=== PATIENT | female | born 1945 | race Caucasian/White ===

== ENCOUNTER 2017-10-15 08:24 | Observation (INO) | payer MEDICARE, MEDICAID, SELFPAY ==
[2017-10-15] VITALS (10 sets, daily range): BP systolic 142–190; BP diastolic 82–113; PULSE 55–73; RESP 13–16; TEMP 36.6–36.8; O2SAT 94–97; BMI 37.3; BMI 37.7; BMI 38.0
--- NOTE | 2017-10-15 08:37 | RAD_ITS ---
STUDY: X-RAY CHEST REASON FOR EXAM: Female, 72 years old. Syncope. TECHNIQUE: Single AP portable view of the chest. COMPARISON: Comparison is made with prior study dated July 19, 2017. FINDINGS: The lungs are clear and expanded. There is no demonstrated pleural abnormality. Sternal cerclage wires and vascular clips are present from a prior sternotomy and coronary artery bypass graft procedure (CABG). Normal mediastinum and ale. Normal visualized pulmonary arteries. There is atherosclerotic tortuosity of the aortic arch and descending thoracic aorta. Normal visualized thoracic spine. Normal visualized ribs, clavicles, and shoulders. Moderate hiatal hernia. RAD/Chest 1 View (Portable) IMPRESSION: No acute abnormality is seen. Hiatal hernia. Electronically Signed: Geoffrey Lezama MD at 9:13 EST Tel [phone], Service support ,
--- NOTE | 2017-10-15 08:37 | CT_ITS ---
STUDY: CT BRAIN WITHOUT CONTRAST REASON FOR EXAM: Female, 72 years old. Syncopal episode. And injury. Seizures. RADIATION DOSAGE (If Supplied By Facility): CTDIvol = ( 44.99 ) mGy, DLP = ( 745.49 ) mGycm TECHNIQUE: Transaxial CT imaging of the brain was performed without administration of intravenous contrast material. Individualized dose optimization techniques were used for this CT. COMPARISON: None. FINDINGS: Normal soft tissue structures. Normal calvarium. There is mild cerebral atrophy with widening of the extra-axial spaces and ventricular dilatation. There are areas of decreased attenuation within the white matter tracts of the supratentorial brain, consistent with microvascular disease changes. Normal basal ganglia and thalami. Normal brainstem. There is mild cerebellar atrophy. There is no intracranial hemorrhage. There are no findings of an acute ischemic infarction. Normal visualized paranasal sinuses. CT/Brain/Head without Contrast IMPRESSION: Chronic involutional changes of the brain. Electronically Signed: Geoffrey Lezama MD at 9:48 EST Tel [phone], Service support ,
--- NOTE | 2017-10-15 08:37 | EKG12_ITS ---
Test Reason : Blood Pressure : / mmHG Vent. Rate : 067 BPM Atrial Rate : 067 BPM P-R Int : 172 ms QRS Dur : 092 ms QT Int : 428 ms P-R-T Axes : 005 006 084 degrees QTc Int : 452 ms Normal sinus rhythm Nonspecific T wave abnormality Abnormal ECG Confirmed by MAXIM TIRADO, SHARRON ([id number]), editor continuity and script IWONA BOLANOS ([id number]) on 10/16/2017 2:28:37 PM Referred By: RUDDY Confirmed By:SHARRON PAN MD
[2017-10-15] MEDS: 0.9% Normal Saline 1,000 ML 150 ML IV (08:57)
--- NOTE | 2017-10-15 09:03 | ED.DCSUM_ITS ---
- ER Visit Summary Date of Service: 10/15/17 Chief Complaint: [Syncope] History of Present Illness: The patient is a 72 F [presents with a syncopal episode that occurred last evening around 6:30 PM. Patient was standing in the kitchen and apparently when she began feeling dizzy and passed out hitting the floor with her head. Per her patient was unconscious for maybe a little bit over a minute. Patient has been complaining of dizziness over the last year specifically with standing and states that she cannot stand for very long. Patient currently does describe a mild headache. Patient states she has had a dry cough for a few years. Patient denies any urinary symptoms. Patient has not had a fever or cold symptoms. She denies any chest pain currently. also gives history of patient having pseudoseizures and apparently patient had 2 of these episodes yesterday. Patient is not on any seizure medications. During her pseudoseizure episodes patient's whole body shakes and she does not respond to them and afterwards is somewhat confused. Patient did not exhibit any seizure-like activity during her syncopal episode per .] Patient does have a history of coronary artery disease with prior two-vessel CABG approximately 10 years ago. Physical Examination: [HEENT-PERRLA, EOMI. Cranial nerves II through XII grossly intact. TMs clear. Mucous membranes moist. No adenopathy. No bite wounds noted to the mouth or tongue. Cardiovascular-regular rate and rhythm without murmur or ectopy Lungs-clear to auscultation, chest wall stable without crepitus or subcu emphysema Abdomen-normoactive bowel sounds, soft, nontender, no rebound or rigidity, no peritoneal signs. Neuro qgre-kieoaf-cmpa and heel rivas testing within normal limits, negative Romberg, negative pronator drift, fundi benign Extremities-intact ?4, normal range of motion, normal pulses, atraumatic] Test Results: [EKG obtained showed a sinus rhythm with a ventricular rate of 67 bpm with some nonspecific ST changes noted. No old EKGs available for comparison.] CT scan of the brain showed chronic changes and nothing acute. CBC with differential and white blood cell count of 4.6, hemoglobin 14.6, hematocrit 43.5, platelets 186. Chemistries unremarkable. TSH was elevated 9.24. Urinalysis was normal. Troponin was less than 0.02. Chest x-ray showed nothing acute. Orthostatic vital signs were positive. Emergency Department Course and Treatment: [Patient was treated with normal saline] Treatment Plan: [Plan will be to admit patient for further evaluation of her dizziness and syncope.] Disposition: [Admit] Impression: [Syncope Dizziness-etiology uncertain Hypothyroidism-noncompliant with meds Orthostatic hypotension Abnormal EKG-no old EKGs available for comparison] This note was generated with [employer] dictation software. It may contain incorrect words, spelling, and punctuation that were not noted in review of the chart prior to signing ED Disposition - Plan for ED Patient: Chief Complaint: Syncope Referrals: Care Physician,No Primary [Primary Care Provider] -
[2017-10-15 09:04] LABS: Absolute Lymphocyte Count 1.31 X10^3/ul (0.83-4.51); Absolute Neutrophil Count 2.6 X10^3/uL (2.0-7.7); Basophil# 0.06 X10^3/uL; Basophil% 1.3 % (0-1); Eosinophil# 0.15 X10^3/uL; Eosinophils% 3.3 % (0-5); Hematocrit 43.5 % (37-47); Hemoglobin 14.6 g/dl (12.0-15.0); Lymphocyte # 1.31 X10^3/ul (4.0); Lymphocyte % 28.4 % (19-41); Mean Corp Hgb Conc 33.6 g/gl (32-36); Mean Corpuscular Hgb 29.1 pg (27.0-32.0); Mean Corpuscular Volume 86.8 fL (81-99); Mean Platelet Vol. 10.2 fl (6.2-12.0); Monocyte# 0.51 X10^3/uL; Monocyte% 11.1 % (0-10); Neutrophil # 2.58 X10^3/uL (2.7-7.7); Neutrophil % 55.9 % (47-70); Platelet Count 186 K/mm3 (150-450); RBC Distribution Width CV 13.3 % (11.6-14.6); RBC Distribution Width SD 42.2 fl (35.1-43.9); Red Blood Count 5.01 M/mm3 (4.2-5.4); White Blood Count 4.6 K/mm3 (4.4-11.0)
[2017-10-15 09:05] LABS: POSITIVE COUNT NO; POSITIVE DIFFERENTIAL NO; POSITIVE MORPHOLOGY NO
[2017-10-15 09:14] LABS: Bacteria 0 SEEN /hpf (None Seen); Mucous, Urine 0 SEEN /hpf (<or=2+); Red Blood Cells-Urine 0 SEEN /hpf (0-5); White Blood Cells 0 SEEN /hpf (0-5)
[2017-10-15 09:15] LABS: Color, Urine Yellow (Yellow); Glucose, Dipstick Normal (Normal); Ketone-Dipstick Negative (Negative); Leukocyte Esterase-Dipstick Negative /ul (Negative); Nitrite-Dipstick Negative (Negative); Occult Blood-Urine Negative /ul (Negative); Protein-Dipstick Negative (Negative); Specific Gravity, Urine 1.005 (1.002-1.030); Urine Bilirubin Dipstick Negative (Negative); Urine Clarity Clear (Clear); Urine Urobilinogen Normal (Normal); Urine pH 6.5 (5.0 - 8.0)
[2017-10-15 09:24] LABS: Anion Gap 5 (5-15); BUN 15 mg/dL (7-18); BUN/Creat Ratio 12.8 RATIO (10-20); Chloride 108 mmol/L (98-107); Creatinine, Serum 1.17 mg/dL (0.55-1.02); EST Glomerular Filtration Rate 49 mL/min (>60); Est Glom Filt Rate - Afr Amer 59 mL/min (>60); Estimated Creatinine Clearance 41.88 ml/min; Glucose 98 mg/dL (74-106); Potassium 4.2 mmol/L (3.5-5.1); Sodium Level 141 mmol/L (136-145); Thyroid Stim Hormone (TSH) 9.74 uIU/mL (0.358-3.74)
[2017-10-15 09:34] LABS: Squamous Epithelial Cells - UA 0-5 SEEN /hpf (5-10)
--- NOTE | 2017-10-15 11:40 | MRI_ITS ---
STUDY: MRI BRAIN WITHOUT CONTRAST REASON FOR EXAM: Female, 72 years old. Syncope episodes, pt hit posterior head TECHNIQUE: Standardized multiplanar fat and water weighted pulse sequences were obtained. COMPARISON: January 09, 2008 FINDINGS: Normal size of the ventricles and extra-axial spaces for the patient's age. There are multiple white matter hyperintensities, distributed throughout the deep white matter tracts of the cerebral hemispheres, consistent with moderate chronic white matter ischemic changes. Normal bilateral basal ganglia. Normal thalami. There is no extra-axial fluid accumulation. Normal flow voids within the major intracranial circulation suggesting patency by spin echo criteria. Normal sella turcica, pituitary gland, infundibular stalk, optic chiasm and hypothalamus. Normal tectal plate and pineal gland. Normal midbrain, sujit and medulla. Normal cerebellum. Normal basal cisterns. Normal bilateral temporal bones. Normal bilateral internal auditory canals. No demonstrated orbital abnormality, within the constraints of a routine brain study. Normal visualized paranasal sinuses. Normal calvarium and skull base. Normal visualized soft tissue structures. Normal visualized upper cervical spine. MRI/Brain without Contrast IMPRESSION: No acute intracranial abnormality. Moderate chronic microvascular ischemic changes. Electronically Signed: Daniela Blackmon MD at 13:23 EST Tel , Service support ,
--- NOTE | 2017-10-15 11:43 | CDU_ITS ---
Reason For Study: syncope Rt. Velocities/BP Lt. Velocities/BP Prox CCA 56.9/18.8 cm/sec. Prox CCA 52.3/14.1 cm/sec. Mid CCA 57.5/21.1 cm/sec. Mid CCA 56.2/16.5 cm/sec. Dist CCA 48.7/17.0 cm/sec. Dist CCA 58.1/19.3 cm/sec. Prox ICA 108/42.2 cm/sec. Prox ICA 123/43.2 cm/sec. Mid ICA 87.4/31.7 cm/sec. Mid ICA 112/37.7 cm/sec. Dist ICA 118/40.1 cm/sec. Dist ICA 123/42.4 cm/sec. Rt. ICA/CCA = 2.1. Lt. ICA/CCA = 2.2. Prox ECA 69.8/8.21 cm/sec. Prox ECA 55.8/6.29 cm/sec. Rt. Vert. 33.4/10.2 cm/sec. Lt. Vert. 27.9/9.04 cm/sec. Right Extracranial There is intimal thickening but no significant atherosclerotic plaque noted in the right common carotid artery. There is heterogeneous, irregular atherosclerotic plaque noted in the right internal carotid artery. There is intimal thickening but no significant atherosclerotic plaque noted in the right external carotid artery. Antegrade flow is noted in the right vertebral artery. Left Extracranial There is intimal thickening but no significant atherosclerotic plaque noted in the left common carotid artery. There is heterogeneous, irregular atherosclerotic plaque noted in the left internal carotid artery. There is intimal thickening but no significant atherosclerotic plaque noted in the left external carotid artery. Antegrade flow is noted in the left vertebral artery. Procedure Carotid Duplex 75091. The exam was diagnostic. Exam performed portable in patient room. 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 Normal flow right external carotid Calcific plague at the proximal left internal carotid with <50% stenosis. Normal flow left external carotid Patent and antegrade vertebrals bilaterally. Ordering Physician: Jon Newman Performed By: Rafael Hahn RVT
--- NOTE | 2017-10-15 11:45 | PCM.HP.STD ---
Problem List (1) Anxiety Status: Chronic (2) Obesity (BMI 30-39.9) Status: Chronic (3) HTN (hypertension) Status: Chronic Qualifiers: (4) HLD (hyperlipidemia) Status: Chronic Qualifiers: (5) CAD (coronary artery disease) Status: Chronic Qualifiers: (6) Seizure disorder Status: Chronic (7) S/P CABG x 2 Status: Chronic History of Present Illness Date of Admission: 10/15/17 Chief Complaint: Syncope, seizure. The patient is a 72 year old F with past medical history as mentioned above presented to the emergency room because of syncope and seizure. According to the patient's , she had a syncopal episode yesterday when was standing at the kitchen and all of a sudden, she passed out. The patient herself mentioned that she has been having chronic dizziness mainly upon standing and this morning, she felt dizzy and lightheaded before she passed out. She did not recall any more details about this event. She denied any other prodromal symptoms preceding the syncopal event such as chest pain, shortness of breath, palpitation. But she reported dizziness. Also, her mentioned that she had 2 episodes of seizure before that syncopal event. He described those seizures as jerking movements of both upper extremities, trunk and head but not in the lower extremities. There was no reported tongue biting, stool or urine incontinence. 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 They moved recently to [facility] from [place]. She had a history of CAD status post CABG ?2. She had a history of hypothyroidism and she has been on levothyroxine but her TSH is elevated and she is not compliant with her home medications. She does have a history of hyperlipidemia and she has been on statins. In the emergency room, she was afebrile, heart rate stable, blood pressure was elevated and pulse ox was normal on room air. Her routine blood work was unremarkable except for slightly elevated creatinine at 1.17. Her troponin was negative. TSH was 9.74. EKG revealed normal sinus rhythm, normal NC interval, normal QRS, T-wave inversion in lateral chest leads and those changes are chronic compared to previous EKG. Urinalysis showed no evidence of acute cystitis. CT scan brain without contrast showed no acute infarction or hemorrhage. Chest x-ray showed no acute findings. She is being admitted for syncopal episode as well as seizure for evaluation. Past Medical History Past Medical History (Chronic Problems): Chronic Problems Anxiety (Chronic) Obesity (BMI 30-39.9) (Chronic) HTN (hypertension) (Chronic) HLD (hyperlipidemia) (Chronic) CAD (coronary artery disease) (Chronic) Seizure disorder (Chronic) S/P CABG x 2 (Chronic) Allergies NOVACAINE Adverse Reaction (Uncoded 07/19/17 16:44) ELEVATED BLOOD PRESSURE Home Medications: Ambulatory Orders Medication Instructions Recorded Aspirin [Aspirin, Baby] 81 mg PO QHS 07/19/17 Atorvastatin Calcium [Lipitor] 20 mg PO QHS 07/19/17 Levothyroxine [Synthroid] 112 mcg PO DAILY 07/19/17 Lisinopril [Zestril] 10 mg PO QHS 07/19/17 Surgical History: coronary bypass surgery, - - CABG x 2. 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 Denies: Chest Pain, Chest Pressure, Chest Tightness, Edema, Heaviness, Orthopnea, Paroxysmal Noc. Dyspnea Respiratory: Denies: Cough, Pleuritic Pain, Shortness of Breath, Sputum production, Wheezing Gastrointestinal: Denies: Abdominal Pain, Constipation, Diarrhea, Nausea, Vomiting Genitourinary: Denies: Dysuria, Frequency, Hematuria Musculoskeletal: Denies: Arm Pain, Back Pain, Foot Pain Skin: Denies: Dryness, Rash Neurological: Reports: Seizures. Denies: Balance problems, Double vision, Change in Speech, Slurred speech, Confusion, Focal weakness, Headaches, Incoordination, Numbness, Tingling Psychiatric: Reports: Anxiety. Denies: Depression Endocrine: Denies: Change in Body Habitus, Polydipsia VTE Information - Inpt Only VTE Present on Admission: No VTE Mechan Device Prophylaxis: None VTE Pharm Prophylaxis ordered?: Yes - Physical Exam General: Alert, Oriented x3, Cooperative, No apparent distress HEENT: Atraumatic, PERRLA, EOMI Oral: Moist Mucosa, No Gingival or Mucosal Lesions/ Ulcerations Neck: Supple, No JVD, Negative Carotid Bruits, Trachea Midline, Thyroid Normal Size and Texture Lungs: Clear to auscultation, No rhonchi, No wheeze, No rales, Diminished Cardiovascular: Regular rate, Regular Rhythm, Normal S1, Normal S2, No murmurs, PMI Normal Abdomen: Bowel Sounds Present, Soft, Non Tender, Non-Distended, No Hepato-splenomegaly Extremities: No clubbing, No cyanosis, No edema Skin: No rashes, No breakdown Lymphatic: No Cervical, Supraclavicular, or Inguinal Adenopathy Neurological: Cranial nerves II-XII grossly intact, Motor Exam 5/5 strength throughout Psych/Mental Status: Normal Affect, Appropriate, Alert and oriented to time, place, person, mood and affect Vital Signs Temp Pulse Resp BP Pulse Ox 97.8 F 56 L 16 149/94 H 94 10/15/17 11:02 10/15/17 11:23 10/15/17 11:02 10/15/17 11:02 10/15/17 11:02 Oxygen Delivery Method Room Air Weight: 228 lb 6.382 oz Body Mass Index (BMI) 38.0 Laboratory Tests 10/15/17 10/15/17 10/15/17 Range/Units 09:08 08:54 08:54 WBC 4.6 (4.4-11.0) K/mm3 RBC 5.01 (4.2-5.4) M/mm3 Hgb 14.6 (12.0-15.0) g/dl Hct 43.5 (37-47) % MCV 86.8 (81-99) fL MCH 29.1 (27.0-32.0) pg MCHC 33.6 (32-36) g/gl RDW 13.3 (11.6-14.6) % RDW Differential 42.2 (35.1-43.9) fl Plt Count 186 (150-450) K/mm3 MPV 10.2 (6.2-12.0) fl Immature Gran % (Auto) 0.000 (0.0-0.9) % Neut % (Auto) 55.9 (47-70) % Lymph % (Auto) 28.4 (19-41) % [place] % (Auto) 11.1 H (0-10) % Eos % (Auto) 3.3 (0-5) % Baso % (Auto) 1.3 H (0-1) % Absolute Neuts (auto) 2.6 (2.0-7.7) X10^3/uL Absolute Lymphs (auto) 1.31 (0.83-4.51) X10^3/ul Total Counted Not Reportable Sodium 141 (136-145) mmol/L Potassium 4.2 (3.5-5.1) mmol/L Chloride 108 H (98-107) mmol/L Carbon Dioxide 28.0 (21.0-32.0) mmol/L Anion Gap 5 (5-15) BUN 15 (7-18) mg/dL Creatinine 1.17 H (0.55-1.02) mg/dL Estim Creat Clear Calc 41.88 ml/min Est GFR (MDRD) Af Amer 59 L (>60) mL/min Est GFR (MDRD) Non-Af 49 L (>60) mL/min BUN/Creatinine Ratio 12.8 (10-20) RATIO Glucose 98 (74-106) mg/dL Calcium 9.0 (8.5-10.1) mg/dL Troponin I < 0.02 (<0.06) ng/mL TSH 9.74 H (0.358-3.74) uIU/mL Urine Color Yellow (Yellow) Urine Clarity Clear (Clear) Urine pH 6.5 (5.0 - 8.0) Ur Specific [place] 1.005 (1.002-1.030) Urine Protein Negative (Negative) mg/dl Urine Glucose (UA) Normal (Normal) mg/dl Urine Ketones Negative (Negative) mg/dl Urine Occult Blood Negative (Negative) /ul Urine Nitrite Negative (Negative) Urine Bilirubin Negative (Negative) mg/dL Urine Urobilinogen Normal (Normal) mg/dl Ur Leukocyte Esterase Negative (Negative) /ul Urine RBC 0 SEEN (0-5) /hpf Urine WBC 0 SEEN (0-5) /hpf Ur Squamous Epith Cells 0-5 SEEN (5-10) /hpf Urine Bacteria 0 SEEN (None Seen) /hpf Urine Mucus 0 SEEN (<or=2+) /hpf Clinical Impression(s) from Imaging Studies Brain CT 10/15/17 08:37 IMPRESSION: Chronic involutional changes of the brain. Electronically Signed: Geoffrey Lezama MD at 9:48 EST Tel [phone], Service support , Chest X-Ray 10/15/17 08:37 IMPRESSION: No acute abnormality is seen. Hiatal hernia. Electronically Signed: Geoffrey Lezama MD at 9:13 EST Tel [phone], Service support , Assessment/Plan This is a 72 years old female patient presented to the emergency room because of syncope and seizure ?2 and she is being admitted for evaluation. #1 syncope: Unclear etiology. Could be neurogenic, less likely cardiogenic. EKG reviewed, revealed T-wave inversion in lateral chest leads which are chronic. Pulmonary is negative. CT scan brain without acute findings. Physical examination without focal deficits. Blood pressure was elevated. Plan: To PCU, cardiac monitoring, orthostatic vitals, MRI brain, bilateral carotid Doppler, PT OT evaluation and treatment. #2 seizure: It was tonic-clonic according to the patient's . She had 2 seizures yesterday. Patient's mentioned that she does have a history of pseudoseizure that was diagnosed back in [place]. She mentioned that she was on medication for seizure but she stopped taking it because of side effects. CT scan brain without acute findings. Plan: MRI brain, EEG, neurology consult, seizure precautions, IV Ativan as needed for seizure. #3 CAD status post CABG: She had a stress test back in July, that was normal. Also, she had 2D echocardiogram at that time was 65%, stage I diastolic dysfunction. EKG reviewed as above, troponin is negative. Continue aspirin, statins and lisinopril. #4 hypertension: Blood pressure was slightly elevated initially, improved now. Plan to continue lisinopril, close monitoring. #5 hyperlipidemia: Continue statins. #6 history of pseudoseizure: This is according to the patient's . Plan as above. #7 hypothyroidism: TSH was elevated at 9.7, patient is not compliant. Plan to resume same dose of levothyroxine, repeat TSH in 2-4 weeks as outpatient. #8 DVT prophylaxis: Subcu Lovenox. This note was generated with [employer] dictation software. It may contain incorrect words, spelling, and punctuation that were not noted in checking the note before signing. Code Visit OBSV E&M: 98764 Initial observation care L3
--- NOTE | 2017-10-15 11:52 | HP.PCM_ITS ---
Problem List (1) Anxiety Status: Chronic (2) Obesity (BMI 30-39.9) Status: Chronic (3) HTN (hypertension) Status: Chronic Qualifiers: (4) HLD (hyperlipidemia) Status: Chronic Qualifiers: (5) CAD (coronary artery disease) Status: Chronic Qualifiers: (6) Seizure disorder Status: Chronic (7) S/P CABG x 2 Status: Chronic History of Present Illness Date of Admission: 10/15/17 Chief Complaint: Syncope, seizure. The patient is a 72 year old F with past medical history as mentioned above presented to the emergency room because of syncope and seizure. According to the patient's , she had a syncopal episode yesterday when was standing at the kitchen and all of a sudden, she passed out. The patient herself mentioned that she has been having chronic dizziness mainly upon standing and this morning, she felt dizzy and lightheaded before she passed out. She did not recall any more details about this event. She denied any other prodromal symptoms preceding the syncopal event such as chest pain, shortness of breath, palpitation. But she reported dizziness. Also, her mentioned that she had 2 episodes of seizure before that syncopal event. He described those seizures as jerking movements of both upper extremities, trunk and head but not in the lower extremities. There was no reported tongue biting, stool or urine incontinence. 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 They moved recently to [facility] from [place]. She had a history of CAD status post CABG ?2. She had a history of hypothyroidism and she has been on levothyroxine but her TSH is elevated and she is not compliant with her home medications. She does have a history of hyperlipidemia and she has been on statins. In the emergency room, she was afebrile, heart rate stable, blood pressure was elevated and pulse ox was normal on room air. Her routine blood work was unremarkable except for slightly elevated creatinine at 1.17. Her troponin was negative. TSH was 9.74. EKG revealed normal sinus rhythm, normal DE interval, normal QRS, T-wave inversion in lateral chest leads and those changes are chronic compared to previous EKG. Urinalysis showed no evidence of acute cystitis. CT scan brain without contrast showed no acute infarction or hemorrhage. Chest x-ray showed no acute findings. She is being admitted for syncopal episode as well as seizure for evaluation. Past Medical History Past Medical History (Chronic Problems): Chronic Problems Anxiety (Chronic) Obesity (BMI 30-39.9) (Chronic) HTN (hypertension) (Chronic) HLD (hyperlipidemia) (Chronic) CAD (coronary artery disease) (Chronic) Seizure disorder (Chronic) S/P CABG x 2 (Chronic) Allergies NOVACAINE Adverse Reaction (Uncoded 07/19/17 16:44) ELEVATED BLOOD PRESSURE Home Medications: Ambulatory Orders Medication Instructions Recorded Aspirin [Aspirin, Baby] 81 mg PO QHS 07/19/17 Atorvastatin Calcium [Lipitor] 20 mg PO QHS 07/19/17 Levothyroxine [Synthroid] 112 mcg PO DAILY 07/19/17 Lisinopril [Zestril] 10 mg PO QHS 07/19/17 Surgical History: coronary bypass surgery, - - CABG x 2. 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 Denies: Chest Pain, Chest Pressure, Chest Tightness, Edema, Heaviness, Orthopnea, Paroxysmal Noc. Dyspnea Respiratory: Denies: Cough, Pleuritic Pain, Shortness of Breath, Sputum production, Wheezing Gastrointestinal: Denies: Abdominal Pain, Constipation, Diarrhea, Nausea, Vomiting Genitourinary: Denies: Dysuria, Frequency, Hematuria Musculoskeletal: Denies: Arm Pain, Back Pain, Foot Pain Skin: Denies: Dryness, Rash Neurological: Reports: Seizures. Denies: Balance problems, Double vision, Change in Speech, Slurred speech, Confusion, Focal weakness, Headaches, Incoordination, Numbness, Tingling Psychiatric: Reports: Anxiety. Denies: Depression Endocrine: Denies: Change in Body Habitus, Polydipsia VTE Information - Inpt Only VTE Present on Admission: No VTE Mechan Device Prophylaxis: None VTE Pharm Prophylaxis ordered?: Yes - Physical Exam General: Alert, Oriented x3, Cooperative, No apparent distress HEENT: Atraumatic, PERRLA, EOMI Oral: Moist Mucosa, No Gingival or Mucosal Lesions/ Ulcerations Neck: Supple, No JVD, Negative Carotid Bruits, Trachea Midline, Thyroid Normal Size and Texture Lungs: Clear to auscultation, No rhonchi, No wheeze, No rales, Diminished Cardiovascular: Regular rate, Regular Rhythm, Normal S1, Normal S2, No murmurs, PMI Normal Abdomen: Bowel Sounds Present, Soft, Non Tender, Non-Distended, No Hepato- splenomegaly Extremities: No clubbing, No cyanosis, No edema Skin: No rashes, No breakdown Lymphatic: No Cervical, Supraclavicular, or Inguinal Adenopathy Neurological: Cranial nerves II-XII grossly intact, Motor Exam 5/5 strength throughout Psych/Mental Status: Normal Affect, Appropriate, Alert and oriented to time, place, person, mood and affect Vital Signs Temp Pulse Resp BP Pulse Ox 97.8 F 56 L 16 149/94 H 94 10/15/17 11:02 10/15/17 11:23 10/15/17 11:02 10/15/17 11:02 10/15/17 11:02 Oxygen Delivery Method Room Air Weight: 228 lb 6.382 oz Body Mass Index (BMI) 38.0 Laboratory Tests 3 10/15/17 10/15/17 10/15/17 Range/Units 09:08 08:54 08:54 WBC 4.6 (4.4-11.0) K/mm3 RBC 5.01 (4.2-5.4) M/mm3 Hgb 14.6 (12.0-15.0) g/dl Hct 43.5 (37-47) % MCV 86.8 (81-99) fL MCH 29.1 (27.0-32.0) pg MCHC 33.6 (32-36) g/gl RDW 13.3 (11.6-14.6) % RDW Differential 42.2 (35.1-43.9) fl Plt Count 186 (150-450) K/mm3 MPV 10.2 (6.2-12.0) fl Immature Gran % (Auto) 0.000 (0.0-0.9) % Neut % (Auto) 55.9 (47-70) % Lymph % (Auto) 28.4 (19-41) % [place] % (Auto) 11.1 H (0-10) % Eos % (Auto) 3.3 (0-5) % Baso % (Auto) 1.3 H (0-1) % Absolute Neuts (auto) 2.6 (2.0-7.7) X10^3/uL Absolute Lymphs (auto) 1.31 (0.83-4.51) X10^3/ul Total Counted Not Reportable Sodium 141 (136-145) mmol/L Potassium 4.2 (3.5-5.1) mmol/L Chloride 108 H (98-107) mmol/L Carbon Dioxide 28.0 (21.0-32.0) mmol/L Anion Gap 5 (5-15) BUN 15 (7-18) mg/dL Creatinine 1.17 H (0.55-1.02) mg/dL Estim Creat Clear Calc 41.88 ml/min Est GFR (MDRD) Af Amer 59 L (>60) mL/min Est GFR (MDRD) Non-Af 49 L (>60) mL/min BUN/Creatinine Ratio 12.8 (10-20) RATIO Glucose 98 (74-106) mg/dL Calcium 9.0 (8.5-10.1) mg/dL Troponin I < 0.02 (<0.06) ng/mL TSH 9.74 H (0.358-3.74) uIU/mL Urine Color Yellow (Yellow) Urine Clarity Clear (Clear) Urine pH 6.5 (5.0 - 8.0) Ur Specific [place] 1.005 (1.002-1.030) Urine Protein Negative (Negative) mg/dl Urine Glucose (UA) Normal (Normal) mg/dl Urine Ketones Negative (Negative) mg/dl Urine Occult Blood Negative (Negative) /ul Urine Nitrite Negative (Negative) Urine Bilirubin Negative (Negative) mg/dL Urine Urobilinogen Normal (Normal) mg/dl Ur Leukocyte Esterase Negative (Negative) /ul Urine RBC 0 SEEN (0-5) /hpf Urine WBC 0 SEEN (0-5) /hpf Ur Squamous Epith Cells 0-5 SEEN (5-10) /hpf Urine Bacteria 0 SEEN (None Seen) /hpf Urine Mucus 0 SEEN (<or=2+) /hpf Clinical Impression(s) from Imaging Studies Brain CT 10/15/17 08:37 IMPRESSION: Chronic involutional changes of the brain. Electronically Signed: Geoffrey Lezama MD at 9:48 EST Tel [phone], Service support , Chest X-Ray 10/15/17 08:37 IMPRESSION: No acute abnormality is seen. Hiatal hernia. Electronically Signed: Geoffrey Lezama MD at 9:13 EST Tel [phone], Service support , Assessment/Plan This is a 72 years old female patient presented to the emergency room because of syncope and seizure ?2 and she is being admitted for evaluation. #1 syncope: Unclear etiology. Could be neurogenic, less likely cardiogenic. EKG reviewed, revealed T-wave inversion in lateral chest leads which are chronic. Pulmonary is negative. CT scan brain without acute findings. Physical examination without focal deficits. Blood pressure was elevated. Plan : To PCU, cardiac monitoring, orthostatic vitals, MRI brain, bilateral carotid Doppler, PT OT evaluation and treatment. #2 seizure: It was tonic-clonic according to the patient's . She had 2 seizures yesterday. Patient's mentioned that she does have a history of pseudoseizure that was diagnosed back in [place]. She mentioned that she was on medication for seizure but she stopped taking it because of side effects. CT scan brain without acute findings. Plan: MRI brain, EEG, neurology consult, seizure precautions, IV Ativan as needed for seizure. #3 CAD status post CABG: She had a stress test back in July, that was normal. Also, she had 2D echocardiogram at that time was 65%, stage I diastolic dysfunction. EKG reviewed as above, troponin is negative. Continue aspirin, statins and lisinopril. #4 hypertension: Blood pressure was slightly elevated initially, improved now. Plan to continue lisinopril, close monitoring. #5 hyperlipidemia: Continue statins. #6 history of pseudoseizure: This is according to the patient's . Plan as above. #7 hypothyroidism: TSH was elevated at 9.7, patient is not compliant. Plan to resume same dose of levothyroxine, repeat TSH in 2-4 weeks as outpatient. #8 DVT prophylaxis: Subcu Lovenox. This note was generated with [employer] dictation software. It may contain incorrect words, spelling, and punctuation that were not noted in checking the note before signing. Code Visit OBSV E&M: 15078 Initial observation care L3
--- NOTE | 2017-10-15 14:17 | NURSING ---
Dr. Anand cleared patient to be discharged home from his stand point.
--- NOTE | 2017-10-15 16:41 | PCM.CONS.GEN ---
Reason for Consult Date of Consultation: 10/15/17 Reason for Consultation: Nonepileptic spells History of Present Illness: The patient is a 72 year old F right-handed white female with a long history of seizures she says for approximately 20 years. He continues to have seizures about once per week, she admits that these are due to stress, however she does indicate that her stress is improved. She says several years ago in [place] she was diagnosed with pseudoseizures but she cannot give me the details of how this diagnosis was arrived at. She does not remember having EEGs previously. He now feels back to her normal self. She has never injured herself of seizures. She does not drive. She has never had tongue biting. She has no complaints now. Per H&P: The patient is a 72 year old F with past medical history as mentioned above presented to the emergency room because of syncope and seizure. According to the patient's , she had a syncopal episode yesterday when was standing at the kitchen and all of a sudden, she passed out. The patient herself mentioned that she has been having chronic dizziness mainly upon standing and this morning, she felt dizzy and lightheaded before she passed out. She did not recall any more details about this event. She denied any other prodromal symptoms preceding the syncopal event such as chest pain, shortness of breath, palpitation. But she reported dizziness. Also, her mentioned that she had 2 episodes of seizure before that syncopal event. He described those seizures as jerking movements of both upper extremities, trunk and head but not in the lower extremities. There was no reported tongue biting, stool or urine incontinence. 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 They moved recently to [facility] from [place]. She had a history of CAD status post CABG ?2. She had a history of hypothyroidism and she has been on levothyroxine but her TSH is elevated and she is not compliant with her home medications. She does have a history of hyperlipidemia and she has been on statins. In the emergency room, she was afebrile, heart rate stable, blood pressure was elevated and pulse ox was normal on room air. Her routine blood work was unremarkable except for slightly elevated creatinine at 1.17. Her troponin was negative. TSH was 9.74. EKG revealed normal sinus rhythm, normal MI interval, normal QRS, T-wave inversion in lateral chest leads and those changes are chronic compared to previous EKG. Urinalysis showed no evidence of acute cystitis. CT scan brain without contrast showed no acute infarction or hemorrhage. Chest x-ray showed no acute findings. She is being admitted for syncopal episode as well as seizure for evaluation. Past Medical History Past Medical History (Chronic Problems): Chronic Problems Anxiety (Chronic) Obesity (BMI 30-39.9) (Chronic) HTN (hypertension) (Chronic) HLD (hyperlipidemia) (Chronic) CAD (coronary artery disease) (Chronic) Seizure disorder (Chronic) S/P CABG x 2 (Chronic) Allergies NOVACAINE Adverse Reaction (Uncoded 07/19/17 16:44) ELEVATED BLOOD PRESSURE Home Medications: Ambulatory Orders Medication Instructions Recorded Aspirin [Aspirin, Baby] 81 mg PO QHS 07/19/17 Atorvastatin Calcium [Lipitor] 20 mg PO QHS 07/19/17 Levothyroxine [Synthroid] 112 mcg PO DAILY 07/19/17 Lisinopril [Zestril] 10 mg PO QHS 07/19/17 Surgical History: coronary bypass surgery, - - CABG x 2. 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 Lives: Spouse/ Significant Other Smoking Status: Never smoker Alcohol: None Drugs: None - *Family History Maternal History Items: Heart Disease Paternal History Items: Heart Disease Review of Systems Constitutional: Denies: Chills, Fever, Weight Change HEENT: Denies: Head Aches, Sinus Congestion, Sinus Drainage Cardiovascular: Denies: Chest Pain, Palpitations Respiratory: Denies: Cough, Shortness of breath at rest, Sputum production Gastrointestinal: Denies: Abdominal Pain, Nausea, Vomiting Genitourinary: Denies: Dysuria Musculoskeletal: Denies: Joint Pain, Joint Tenderness Skin: Denies: Rash, Wounds Neurological: Denies: Numbness, Tingling, Focal weakness Psychiatric: Denies: Anxiety, Depression, Homicidal Ideations, Suicidal Ideations Hematologic/ Lymphatic: Denies: Easy Bruising, Easy Bleeding - Physical Exam General: Alert, Oriented x3, Cooperative HEENT: Atraumatic, PERRLA, EOMI, Normocephalic Neck: Supple, No JVD, Negative Carotid Bruits Lungs: Clear to auscultation, Normal air movement Cardiovascular: Regular rate, No murmurs Abdomen: Bowel Sounds Present, Soft, Non Tender Extremities: No edema, Capillary Refill Less than 3 Seconds Skin: No rashes, No breakdown Musculoskeletal: No Tenderness to Palpation of Joints or Extremities Neurological: Cranial nerves II-XII grossly intact Psych/Mental Status: Normal Affect, Appropriate Vital Signs Temp Pulse Resp BP Pulse Ox 36.6 C 55 L 16 149/94 H 94 10/15/17 11:02 10/15/17 15:00 10/15/17 11:02 10/15/17 11:02 10/15/17 11:02 Oxygen Delivery Method Room Air Weight: 103.6 kg Body Mass Index (BMI) 38.0 Intake and Output for Last 24 Hours 10/13/17 10/14/17 10/15/17 23:59 23:59 23:59 Intake Total 120 / 120 Balance 120 / 120 Laboratory Results - last 24 hr 10/15/17 10/15/17 10/15/17 08:54 08:54 09:08 WBC 4.6 RBC 5.01 Hgb 14.6 Hct 43.5 MCV 86.8 MCH 29.1 MCHC 33.6 RDW 13.3 RDW Differential 42.2 Plt Count 186 MPV 10.2 Immature Gran % (Auto) 0.000 Neut % (Auto) 55.9 Lymph % (Auto) 28.4 [place] % (Auto) 11.1 H Eos % (Auto) 3.3 Baso % (Auto) 1.3 H Absolute Neuts (auto) 2.6 Absolute Lymphs (auto) 1.31 Total Counted Not Reportable Sodium 141 Potassium 4.2 Chloride 108 H Carbon Dioxide 28.0 Anion Gap 5 BUN 15 Creatinine 1.17 H Estim Creat Clear Calc 41.88 Est GFR (MDRD) Af Amer 59 L Est GFR (MDRD) Non-Af 49 L BUN/Creatinine Ratio 12.8 Glucose 98 Calcium 9.0 Troponin I < 0.02 TSH 9.74 H Urine Color Yellow Urine Clarity Clear Urine pH 6.5 Ur Specific [place] 1.005 Urine Protein Negative Urine Glucose (UA) Normal Urine Ketones Negative Urine Occult Blood Negative Urine Nitrite Negative Urine Bilirubin Negative Urine Urobilinogen Normal Ur Leukocyte Esterase Negative Urine RBC 0 SEEN Urine WBC 0 SEEN Ur Squamous Epith Cells 0-5 SEEN Urine Bacteria 0 SEEN Urine Mucus 0 SEEN Current Medications Generic Name Dose Route Start Last Admin Trade Name Freq PRN Reason Stop Dose Admin Acetaminophen 650 mg 10/15/17 11:44 Tylenol PO Q6H PRN PRN Fever, headache, pain Aspirin 81 mg 10/15/17 22:00 Aspirin, Baby PO QHS CARTER Atorvastatin Calcium 20 mg 10/15/17 22:00 Lipitor PO QHS [facility] Enoxaparin Sodium 30 mg 10/16/17 10:00 Lovenox SC DAILY@1000 CARTER Famotidine 20 mg 10/15/17 22:00 Pepcid PO BID [facility] Sodium Chloride 1,000 mls @ 75 mls/hr 10/15/17 11:40 IV 10/16/17 00:59 .[id number] [facility] Levothyroxine Sodium 112 mcg 10/16/17 06:00 Synthroid PO DAILY@0600 CARTER Lisinopril 10 mg 10/16/17 10:00 Zestril PO DAILY [facility] Magnesium Hydroxide 30 ml 10/15/17 11:37 Milk Of Magnesia PO DAILY PRN PRN Constipation Ondansetron HCl 4 mg 10/15/17 11:44 Zofran IV Q8H PRN PRN NAUSEA/VOMITING Assessment/Plan Nonepileptic spells. The means of diagnosis is unclear but the patient describes these pretty clearly. She does associate increased stress and at this point does not want to take any anticonvulsants. She indicates that she is not driving and she has never had any injury from her seizures. I think it is okay to discharge her to home with outpatient follow-up. EEG was reviewed and is normal.
--- NOTE | 2017-10-15 16:45 | CON.PCM_ITS ---
Reason for Consult Date of Consultation: 10/15/17 Reason for Consultation: Nonepileptic spells History of Present Illness: The patient is a 72 year old F right-handed white female with a long history of seizures she says for approximately 20 years. He continues to have seizures about once per week, she admits that these are due to stress, however she does indicate that her stress is improved. She says several years ago in [place] she was diagnosed with pseudoseizures but she cannot give me the details of how this diagnosis was arrived at. She does not remember having EEGs previously. He now feels back to her normal self. She has never injured herself of seizures. She does not drive. She has never had tongue biting. She has no complaints now. Per H&P: The patient is a 72 year old F with past medical history as mentioned above presented to the emergency room because of syncope and seizure. According to the patient's , she had a syncopal episode yesterday when was standing at the kitchen and all of a sudden, she passed out. The patient herself mentioned that she has been having chronic dizziness mainly upon standing and this morning, she felt dizzy and lightheaded before she passed out. She did not recall any more details about this event. She denied any other prodromal symptoms preceding the syncopal event such as chest pain, shortness of breath, palpitation. But she reported dizziness. Also, her mentioned that she had 2 episodes of seizure before that syncopal event. He described those seizures as jerking movements of both upper extremities, trunk and head but not in the lower extremities. There was no reported tongue biting, stool or urine incontinence. 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 They moved recently to [facility] from [place]. She had a history of CAD status post CABG ?2. She had a history of hypothyroidism and she has been on levothyroxine but her TSH is elevated and she is not compliant with her home medications. She does have a history of hyperlipidemia and she has been on statins. In the emergency room, she was afebrile, heart rate stable, blood pressure was elevated and pulse ox was normal on room air. Her routine blood work was unremarkable except for slightly elevated creatinine at 1.17. Her troponin was negative. TSH was 9.74. EKG revealed normal sinus rhythm, normal TX interval, normal QRS, T-wave inversion in lateral chest leads and those changes are chronic compared to previous EKG. Urinalysis showed no evidence of acute cystitis. CT scan brain without contrast showed no acute infarction or hemorrhage. Chest x-ray showed no acute findings. She is being admitted for syncopal episode as well as seizure for evaluation. Past Medical History Past Medical History (Chronic Problems): Chronic Problems Anxiety (Chronic) Obesity (BMI 30-39.9) (Chronic) HTN (hypertension) (Chronic) HLD (hyperlipidemia) (Chronic) CAD (coronary artery disease) (Chronic) Seizure disorder (Chronic) S/P CABG x 2 (Chronic) Allergies NOVACAINE Adverse Reaction (Uncoded 07/19/17 16:44) ELEVATED BLOOD PRESSURE Home Medications: Ambulatory Orders Medication Instructions Recorded Aspirin [Aspirin, Baby] 81 mg PO QHS 07/19/17 Atorvastatin Calcium [Lipitor] 20 mg PO QHS 07/19/17 Levothyroxine [Synthroid] 112 mcg PO DAILY 07/19/17 Lisinopril [Zestril] 10 mg PO QHS 07/19/17 Surgical History: coronary bypass surgery, - - CABG x 2. Psychiatric History: Anxiety MERCHANDISING INTERN History: No pertinent MERCHANDISING INTERN history Lives: Spouse/ Significant Other Smoking Status: Never smoker Alcohol: None Drugs: None - *Family History Maternal History Items: Heart Disease Paternal History Items: Heart Disease Review of Systems Constitutional: Denies: Chills, Fever, Weight Change HEENT: Denies: Head Aches, Sinus Congestion, Sinus Drainage Cardiovascular: Denies: Chest Pain, Palpitations Respiratory: Denies: Cough, Shortness of breath at rest, Sputum production Gastrointestinal: Denies: Abdominal Pain, Nausea, Vomiting Genitourinary: Denies: Dysuria Musculoskeletal: Denies: Joint Pain, Joint Tenderness Skin: Denies: Rash, Wounds Neurological: Denies: Numbness, Tingling, Focal weakness Psychiatric: Denies: Anxiety, Depression, Homicidal Ideations, Suicidal Ideations Hematologic/ Lymphatic: Denies: Easy Bruising, Easy Bleeding - Physical Exam General: Alert, Oriented x3, Cooperative HEENT: Atraumatic, PERRLA, EOMI, Normocephalic Neck: Supple, No JVD, Negative Carotid Bruits Lungs: Clear to auscultation, Normal air movement Cardiovascular: Regular rate, No murmurs Abdomen: Bowel Sounds Present, Soft, Non Tender Extremities: No edema, Capillary Refill Less than 3 Seconds Skin: No rashes, No breakdown Musculoskeletal: No Tenderness to Palpation of Joints or Extremities Neurological: Cranial nerves II-XII grossly intact Psych/Mental Status: Normal Affect, Appropriate Vital Signs Temp Pulse Resp BP Pulse Ox 36.6 C 55 L 16 149/94 H 94 10/15/17 11:02 10/15/17 15:00 10/15/17 11:02 10/15/17 11:02 10/15/17 11:02 Oxygen Delivery Method Room Air Weight: 103.6 kg Body Mass Index (BMI) 38.0 Intake and Output for Last 24 Hours 10/13/17 10/14/17 10/15/17 23:59 23:59 23:59 Intake Total 120 / 120 Balance 120 / 120 Laboratory Results - last 24 hr 10/15/17 10/15/17 10/15/17 08:54 08:54 09:08 WBC 4.6 RBC 5.01 Hgb 14.6 Hct 43.5 MCV 86.8 MCH 29.1 MCHC 33.6 RDW 13.3 RDW Differential 42.2 Plt Count 186 MPV 10.2 Immature Gran % (Auto) 0.000 Neut % (Auto) 55.9 Lymph % (Auto) 28.4 [place] % (Auto) 11.1 H Eos % (Auto) 3.3 Baso % (Auto) 1.3 H Absolute Neuts (auto) 2.6 Absolute Lymphs (auto) 1.31 Total Counted Not Reportable Sodium 141 Potassium 4.2 Chloride 108 H Carbon Dioxide 28.0 Anion Gap 5 BUN 15 Creatinine 1.17 H Estim Creat Clear Calc 41.88 Est GFR (MDRD) Af Amer 59 L Est GFR (MDRD) Non-Af 49 L BUN/Creatinine Ratio 12.8 Glucose 98 Calcium 9.0 Troponin I < 0.02 TSH 9.74 H Urine Color Yellow Urine Clarity Clear Urine pH 6.5 Ur Specific [place] 1.005 Urine Protein Negative Urine Glucose (UA) Normal Urine Ketones Negative Urine Occult Blood Negative Urine Nitrite Negative Urine Bilirubin Negative Urine Urobilinogen Normal Ur Leukocyte Esterase Negative Urine RBC 0 SEEN Urine WBC 0 SEEN Ur Squamous Epith Cells 0-5 SEEN Urine Bacteria 0 SEEN Urine Mucus 0 SEEN Current Medications Generic Name Dose Route Start Last Admin Trade Name Freq PRN Reason Stop Dose Admin Acetaminophen 650 mg 10/15/17 11:44 Tylenol PO Q6H PRN PRN Fever, headache, pain Aspirin 81 mg 10/15/17 22:00 Aspirin, Baby PO QHS CARTER Atorvastatin Calcium 20 mg 10/15/17 22:00 Lipitor PO QHS [facility] Enoxaparin Sodium 30 mg 10/16/17 10:00 Lovenox SC DAILY@1000 CARTER Famotidine 20 mg 10/15/17 22:00 Pepcid PO BID [facility] Sodium Chloride 1,000 mls @ 75 mls/hr 10/15/17 11:40 IV 10/16/17 00:59 .[id number] [facility] Levothyroxine Sodium 112 mcg 10/16/17 06:00 Synthroid PO DAILY@0600 CARTER Lisinopril 10 mg 10/16/17 10:00 Zestril PO DAILY CARTER Magnesium Hydroxide 30 ml 10/15/17 11:37 Milk Of Magnesia PO DAILY PRN PRN Constipation Ondansetron HCl 4 mg 10/15/17 11:44 Zofran IV Q8H PRN PRN NAUSEA/VOMITING Assessment/Plan Nonepileptic spells. The means of diagnosis is unclear but the patient describes these pretty clearly. She does associate increased stress and at this point does not want to take any anticonvulsants. She indicates that she is not driving and she has never had any injury from her seizures. I think it is okay to discharge her to home with outpatient follow-up. EEG was reviewed and is normal.
--- NOTE | 2017-10-15 16:45 | EEG ---
- Electroencephalogram 18 channel electroencephalogram was performed utilizing International 10-20 electrode placement protocol as well as photic stimulation, hyperventilation and EKG reference leads. The patient remained awake throughout the recording. Hyperventilation was performed for 3 minutes with good effort with no lateralizing or epileptiform changes. The postovulatory phase was unremarkable. The patient did not demonstrate any lateralizing Repliform changes. Background activity is 10 Hz symmetrically in the posterior leads which attenuates with eye opening. EKG is normal sinus rhythm throughout and photic stimulation does generate a normal symmetric driving response in the posterior leads. Impression this is a normal awake electroencephalogram.
[2017-10-15] MEDS: 0.9% Normal Saline 1,000 ML 75 ML IV (16:55)
[2017-10-15] MEDS: Aspirin 81 MG TAB.CHEW PO (21:15)
[2017-10-15] MEDS: Famotidine 20 MG Tablet PO (21:15)
[2017-10-15] MEDS: Atorvastatin Calcium 20 MG Tablet PO (21:15)
[2017-10-16 03:06] VITALS: BP 133/84; PULSE 65; RESP 14; TEMP 36.6; O2SAT 97
[2017-10-16 03:11] VITALS: PULSE 71
[2017-10-16 04:58] VITALS: BP 121/78; BP 127/70; BP 127/72; PULSE 64; PULSE 66; PULSE 83; RESP 18; TEMP 36.4; O2SAT 97
[2017-10-16] MEDS: Levothyroxine 112 MCG Tablet PO (04:59)
[2017-10-16] MEDS: 0.9% NaCl Peripheral Flush Adult/Peds IV ×2 (06:25→06:52)
[2017-10-16 06:58] VITALS: PULSE 54
[2017-10-16 09:26] VITALS: BP 157/78; PULSE 63; RESP 16; TEMP 37; O2SAT 97
[2017-10-16] MEDS: Lisinopril 10 MG Tablet PO (09:27)
[2017-10-16] MEDS: Enoxaparin 30 MG/0.3 ML Syringe SC (09:27)
[2017-10-16] MEDS: Famotidine 20 MG Tablet PO (09:27)
--- NOTE | 2017-10-16 09:32 | PCM.DC ---
You will use the following diet at home:: Cardiac Your food should be the consistency of: Regular Discharge Activity: Return to Normal Activity Weight Bearing Status: Weight bearing as tolerated Call your doctor if you observe: Fever of 101 or Higher, Shortness of breath, Dizziness, Fainting spells, Chest pain, Increased palpitations (irregular heartbeat), Uncontrolled pain Allergies/Adverse Reactions: Allergies NOVACAINE Adverse Reaction (Uncoded 07/19/17 16:44) ELEVATED BLOOD PRESSURE Medications to take at Discharge Aspirin [Aspirin, Baby] 81 mg PO QHS 07/19/17 Atorvastatin Calcium [Lipitor] 20 mg PO QHS 07/19/17 Levothyroxine [Synthroid] 112 mcg PO DAILY 07/19/17 Lisinopril 20 mg PO QHS #90 tab 10/16/17 Pantoprazole Sodium [Protonix] 40 mg PO DAILY #30 tab 10/16/17 The following prescriptions were given: Lisinopril 20 mg PO QHS #90 tab Pantoprazole Sodium [Protonix] 40 mg PO DAILY #30 tab Primary Care Physician: Care Physician,No Primary [Primary Care Provider] - Please follow up with your Primary Care Physician in: 2 WEEKS. Please Follow Up With: Rome Anand MD When: 3-4 weeks.
--- NOTE | 2017-10-16 10:44 | CASEMGMT ---
Per Dr. Newman, pt has been having difficulty with managing meds at home. This RN CM to room to speak with pt regarding referral to [facility] at this time and pt agrees to referral. Call placed to [facility] and she is aware of pt at this time. Referral order placed in [facility] at this time. Po RN CM
[2017-10-16 11:00] VITALS: PULSE 73
--- NOTE | 2017-10-16 13:49 | PCM.DC.SUM ---
Discharge Date and Diagnosis Date of Admission: 10/15/17 Date of Discharge: 10/16/17 - Primary Discharge Diagnosis #1 syncopal episodes, unclear etiology. #2 seizure. #3 noncompliance, patient is forgetting to take her medications. - Secondary Discharge Diagnosis Chronic Problems S/P CABG x 2 (Chronic) Seizure disorder (Chronic) CAD (coronary artery disease) (Chronic) HLD (hyperlipidemia) (Chronic) HTN (hypertension) (Chronic) Obesity (BMI 30-39.9) (Chronic) Anxiety (Chronic) Hospital Course and Treatment Imaging Results: Clinical Impression(s) from Imaging Studies Brain CT 10/15/17 08:37 IMPRESSION: Chronic involutional changes of the brain. Electronically Signed: Geoffrey Lezama MD at 9:48 EST Tel [phone], Service support , Chest X-Ray 10/15/17 08:37 IMPRESSION: No acute abnormality is seen. Hiatal hernia. Electronically Signed: Geoffrey Lezama MD at 9:13 EST Tel [phone], Service support , Brain MRI 10/15/17 11:40 IMPRESSION: No acute intracranial abnormality. Moderate chronic microvascular ischemic changes. Electronically Signed: Daniela Blackmon MD at 13:23 EST Tel , Service support , Dr. Anand, neurology. Operations: None Procedures: EKG Summary of Care Provided: Patient seen and examined on the day of discharge and appeared to be stable to be discharged home. Today, she denies any complaints. Her vital signs are stable. - Physical Exam General: Alert, Oriented x3, Cooperative, No apparent distress. HEENT: Atraumatic, PERRLA, EOMI. Neck: Supple, No JVD, Negative Carotid Bruits, Trachea Midline, Thyroid Normal. Lungs: Clear to auscultation, Normal air movement, No rhonchi, No wheeze, No rales. Cardiovascular: Regular rate, Regular Rhythm, Normal S1, Normal S2, PMI Normal. Abdomen: Bowel Sounds Present, Soft, Non Tender, Non-Distended, No Hepato-splenomegaly. Extremities: No clubbing, No cyanosis, No edema Skin: No rashes, No breakdown Neurological: Neuro grossly intact Vital Signs are stable. Hospital course: The patient is a 72 year old F admitted because of syncopal episode and upper body tonic-clonic seizure in context of history of C. difficile in the past. Regarding the syncope, there was no clear etiology identified. Her EKG revealed normal sinus rhythm without evidence of acute ischemic changes or cardiac arrhythmias. Her orthostatic vitals were unremarkable. CT scan brain showed no acute infarction or hemorrhage. MRI brain also showed no evidence of acute infarction or hemorrhage. Bilateral carotid Doppler revealed internal carotid artery stenosis less than 50% without significant vascular stenosis or obstruction. Her routine blood work was unremarkable. This patient had a history of seizure seizure according to her . She has been having witnessed a seizure at least once in a week over the last few months. In the past, patient was on antiseizure medication but she stopped taking them because of side effects. EEG done and was normal awake EEG. Neurology consulted and evaluated the patient and patient refused to take antiseizure medications. She does have a history of hypothyroidism and her TSH was highly elevated at 9.7. Patient admitted that she is forgetting to take her medication every day. I suggested to have home health service at her house but initially refused. Patient discharged home in a stable medical condition, discharged on her medication without any changes, plan to follow-up with neurology in 2-4 weeks and follow-up with PCP in 1 week. Because her blood pressure was slightly elevated, I increased her lisinopril to 20 mg p.o. daily. Discharge Activity: Return to Normal Activity Weight Bearing Status: Weight bearing as tolerated Call your doctor if you observe: Fever of 101 or Higher, Shortness of breath, Dizziness, Fainting spells, Chest pain, Increased palpitations (irregular heartbeat), Uncontrolled pain Home Medications: Medications to take at Discharge Aspirin [Aspirin, Baby] 81 mg PO QHS 07/19/17 Atorvastatin Calcium [Lipitor] 20 mg PO QHS 07/19/17 Levothyroxine [Synthroid] 112 mcg PO DAILY 07/19/17 Lisinopril 20 mg PO QHS #90 tab 10/16/17 Pantoprazole Sodium [Protonix] 40 mg PO DAILY #30 tab 10/16/17 Following Prescrptions Were Given to Patient: Lisinopril 20 mg PO QHS #90 tab Pantoprazole Sodium [Protonix] 40 mg PO DAILY #30 tab Primary Care Physician: Care Physician,No Primary [Primary Care Provider] - Please follow up with your Primary Care Physician in: 2 WEEKS. Please Follow Up With: Rome Anand MD When: 3-4 weeks. Disposition: Home Minutes spent on discharge:: 25 Patient Condition:: Stable Meaningful Use Info Meaningful Use Diagnoses (Choose all that apply): None applicable Code Visit OBSV E&M: 72048 Observation care discharge
--- NOTE | 2017-10-16 13:55 | DS.PCM_ITS ---
Discharge Date and Diagnosis Date of Admission: 10/15/17 Date of Discharge: 10/16/17 - Primary Discharge Diagnosis #1 syncopal episodes, unclear etiology. #2 seizure. #3 noncompliance, patient is forgetting to take her medications. - Secondary Discharge Diagnosis Chronic Problems S/P CABG x 2 (Chronic) Seizure disorder (Chronic) CAD (coronary artery disease) (Chronic) HLD (hyperlipidemia) (Chronic) HTN (hypertension) (Chronic) Obesity (BMI 30-39.9) (Chronic) Anxiety (Chronic) Hospital Course and Treatment Imaging Results: Clinical Impression(s) from Imaging Studies Brain CT 10/15/17 08:37 IMPRESSION: Chronic involutional changes of the brain. Electronically Signed: Geoffrey Lezama MD at 9:48 EST Tel [phone], Service support , Chest X-Ray 10/15/17 08:37 IMPRESSION: No acute abnormality is seen. Hiatal hernia. Electronically Signed: Geoffrey Lezama MD at 9:13 EST Tel [phone], Service support , Brain MRI 10/15/17 11:40 IMPRESSION: No acute intracranial abnormality. Moderate chronic microvascular ischemic changes. Electronically Signed: Daniela Blackmon MD at 13:23 EST Tel , Service support , Dr. Anand, neurology. Operations: None Procedures: EKG Summary of Care Provided: Patient seen and examined on the day of discharge and appeared to be stable to be discharged home. Today, she denies any complaints. Her vital signs are stable. - Physical Exam General: Alert, Oriented x3, Cooperative, No apparent distress. HEENT: Atraumatic, PERRLA, EOMI. Neck: Supple, No JVD, Negative Carotid Bruits, Trachea Midline, Thyroid Normal. Lungs: Clear to auscultation, Normal air movement, No rhonchi, No wheeze, No rales. Cardiovascular: Regular rate, Regular Rhythm, Normal S1, Normal S2, PMI Normal. Abdomen: Bowel Sounds Present, Soft, Non Tender, Non-Distended, No Hepato- splenomegaly. Extremities: No clubbing, No cyanosis, No edema Skin: No rashes, No breakdown Neurological: Neuro grossly intact Vital Signs are stable. Hospital course: The patient is a 72 year old F admitted because of syncopal episode and upper body tonic-clonic seizure in context of history of C. difficile in the past. Regarding the syncope, there was no clear etiology identified. Her EKG revealed normal sinus rhythm without evidence of acute ischemic changes or cardiac arrhythmias. Her orthostatic vitals were unremarkable. CT scan brain showed no acute infarction or hemorrhage. MRI brain also showed no evidence of acute infarction or hemorrhage. Bilateral carotid Doppler revealed internal carotid artery stenosis less than 50% without significant vascular stenosis or obstruction. Her routine blood work was unremarkable. This patient had a history of seizure seizure according to her . She has been having witnessed a seizure at least once in a week over the last few months. In the past, patient was on antiseizure medication but she stopped taking them because of side effects. EEG done and was normal awake EEG. Neurology consulted and evaluated the patient and patient refused to take antiseizure medications. She does have a history of hypothyroidism and her TSH was highly elevated at 9.7. Patient admitted that she is forgetting to take her medication every day. I suggested to have home health service at her house but initially refused. Patient discharged home in a stable medical condition, discharged on her medication without any changes, plan to follow-up with neurology in 2-4 weeks and follow-up with PCP in 1 week. Because her blood pressure was slightly elevated, I increased her lisinopril to 20 mg p.o. daily. Discharge Activity: Return to Normal Activity Weight Bearing Status: Weight bearing as tolerated Call your doctor if you observe: Fever of 101 or Higher, Shortness of breath, Dizziness, Fainting spells, Chest pain, Increased palpitations (irregular heartbeat), Uncontrolled pain Home Medications: Medications to take at Discharge Aspirin [Aspirin, Baby] 81 mg PO QHS 07/19/17 Atorvastatin Calcium [Lipitor] 20 mg PO QHS 07/19/17 Levothyroxine [Synthroid] 112 mcg PO DAILY 07/19/17 Lisinopril 20 mg PO QHS #90 tab 10/16/17 Pantoprazole Sodium [Protonix] 40 mg PO DAILY #30 tab 10/16/17 Following Prescrptions Were Given to Patient: Lisinopril 20 mg PO QHS #90 tab Pantoprazole Sodium [Protonix] 40 mg PO DAILY #30 tab Primary Care Physician: Care Physician,No Primary [Primary Care Provider] - Please follow up with your Primary Care Physician in: 2 WEEKS. Please Follow Up With: Rome Anand MD When: 3-4 weeks. Disposition: Home Minutes spent on discharge:: 25 Patient Condition:: Stable Meaningful Use Info Meaningful Use Diagnoses (Choose all that apply): None applicable Code Visit OBSV E&M: 61113 Observation care discharge
== END 2017-10-16 13:40 | disposition home or self-care (01) ==
LOC: ED 09:00 → PCU 10:13
PROVIDERS: Admitting Provider Hospitalist; Emergency Provider Emergency Medicine; Visit Provider Hospitalist
DX: R55 Syncope and collapse (principal); I25.10 Atherosclerotic heart disease of native coronary artery without angina pectoris; E66.9 Obesity, unspecified; I10 Essential (primary) hypertension; E78.5 Hyperlipidemia, unspecified; G40.409 Other generalized epilepsy and epileptic syndromes, not intractable, without status epilepticus; E03.9 Hypothyroidism, unspecified; R94.31 Abnormal electrocardiogram [ECG] [EKG]; F41.9 Anxiety disorder, unspecified; Z95.1 Presence of aortocoronary bypass graft; Z91.138 Patient's unintentional underdosing of medication regimen for other reason; Z68.38 Body mass index [BMI] 38.0-38.9, adult; Z71.3 Dietary counseling and surveillance; Z79.899 Other long term (current) drug therapy; Z79.82 Long term (current) use of aspirin
CPT/HCPCS: 70450; 70551; 71045; 80048; 81001; 84443; 84484; 85025; 93005; 93880; 95819; 96360; 96361; 96372; 97161; 97166; 99218; 99285; J7030; A4216; G0378

== ENCOUNTER 2017-12-18 15:09 | Emergency (ER) | payer MEDICARE, MEDICAID, SELFPAY ==
[2017-12-18 15:11] VITALS: BP 113/58; PULSE 52; RESP 16; TEMP 36.5; O2SAT 98; BMI 35.8
--- NOTE | 2017-12-18 16:17 | EKG12_ITS ---
Test Reason : ABN EKG AT DR OFFICE Blood Pressure : / mmHG Vent. Rate : 111 BPM Atrial Rate : 156 BPM P-R Int : 184 ms QRS Dur : 086 ms QT Int : 338 ms P-R-T Axes : 009 -07 050 degrees QTc Int : 459 ms Sinus tachycardia Otherwise normal ECG Confirmed by JOSE TIRADO, MIKHAIL ([id number]), television news video editor IWONA BOLANOS ([id number]) on 12/20/2017 11:48:09 AM Referred By: SUSAN/KP Confirmed By:MIKHAIL GARCIA MD
[2017-12-18 16:25] LABS: Absolute Lymphocyte Count 2.03 X10^3/ul (0.83-4.51); Absolute Neutrophil Count 3.4 X10^3/uL (2.0-7.7); Basophil# 0.05 X10^3/uL; Basophil% 0.8 % (0-1); Eosinophil# 0.12 X10^3/uL; Eosinophils% 1.9 % (0-5); Hematocrit 46.3 % (37-47); Hemoglobin 15.7 g/dl (12.0-15.0); Lymphocyte # 2.03 X10^3/ul (4.0); Lymphocyte % 32.3 % (19-41); Mean Corp Hgb Conc 33.9 g/gl (32-36); Mean Corpuscular Hgb 29.2 pg (27.0-32.0); Mean Corpuscular Volume 86.1 fL (81-99); Mean Platelet Vol. 10.6 fl (6.2-12.0); Monocyte# 0.64 X10^3/uL; Monocyte% 10.2 % (0-10); Neutrophil # 3.44 X10^3/uL (2.7-7.7); Neutrophil % 54.6 % (47-70); Platelet Count 239 K/mm3 (150-450); RBC Distribution Width CV 12.5 % (11.6-14.6); RBC Distribution Width SD 39.2 fl (35.1-43.9); Red Blood Count 5.38 M/mm3 (4.2-5.4); White Blood Count 6.3 K/mm3 (4.4-11.0)
--- NOTE | 2017-12-18 16:25 | RAD_ITS ---
STUDY: X-RAY CHEST REASON FOR EXAM: Female, 72 years old. Palpitations. TECHNIQUE: Single AP portable view of the chest. COMPARISON: October 15, 2017. FINDINGS: Telemetry wires overlie the chest. The lungs are clear and expanded. There is no demonstrated pleural abnormality. Sternal cerclage wires are present from a prior sternotomy. The heart is normal in size. Normal mediastinum and ale. Normal visualized pulmonary arteries. There is atherosclerotic calcification of the aortic arch with tortuosity. There is a lucency in the retrocardiac region thought to represent hiatal hernia. This appears unchanged. The thoracic spine is obscured by the mediastinum. Normal visualized ribs, clavicles, and shoulders. There is no demonstrated abnormality of the visualized soft tissue structures of the upper abdomen. RAD/Chest 1 View (Portable) IMPRESSION: 1. Evidence of prior median sternotomy. 2. Probable hiatal hernia. 3. No acute pulmonary disease or interval change. Electronically Signed: Ney Salcedo DO at 16:56 EDT Tel [phone], Service support ,
[2017-12-18 16:27] VITALS: BP 124/83; PULSE 72; RESP 18; O2SAT 100
[2017-12-18 16:30] LABS: POSITIVE COUNT NO; POSITIVE DIFFERENTIAL NO; POSITIVE MORPHOLOGY NO
[2017-12-18 16:38] LABS: Anion Gap 7 (5-15); BUN 17 mg/dL (7-18); BUN/Creat Ratio 12.7 RATIO (10-20); Calcium,Total 9.3 mg/dL (8.5-10.1); Chloride 107 mmol/L (98-107); Creatinine, Serum 1.34 mg/dL (0.55-1.02); EST Glomerular Filtration Rate 42 mL/min (>60); Est Glom Filt Rate - Afr Amer 50 mL/min (>60); Estimated Creatinine Clearance 33.73 ml/min; Glucose 89 mg/dL (74-106); Potassium 4.3 mmol/L (3.5-5.1); Sodium Level 143 mmol/L (136-145)
[2017-12-18 17:20] LABS: Thyroid Stim Hormone (TSH) 0.28 uIU/mL (0.358-3.74)
--- NOTE | 2017-12-18 18:24 | ED.DCSUM_ITS ---
- ER Visit Summary Date of Service: 12/18/17 Chief Complaint: Palpitations History of Present Illness: The patient is a 72 F who was establishing today with Dr. Benz. He did an EKG in the office and found the patient was in atrial fibrillation. Patient reports that she has had intermittent palpitations for the past year. They have been more calm over the past 2 months. She reports that she has felt more tired than usual. She denies any chest pain. She reports she has chronic shortness of breath that is unchanged. Review of systems is otherwise negative. Physical Examination: Vitals: Stable. Afebrile. General: Well-nourished and well-developed. Head: Normocephalic atraumatic. Neck: Supple, no lymphadenopathy. No JVD. Nontender. Cardiovascular: Irregular rhythm. No murmurs. Respiratory: No respiratory distress. Clear to auscultation bilaterally. Abdominal: Soft, nontender, nondistended, normal bowel sounds. No guarding, rebound, or peritoneal signs. Back: Nontender. Extremities: Nontender, no edema. Skin: Normal color, no rash. Neurologic: Alert and oriented ?3. Cranial nerves II through XII are intact. Normal strength and sensation. Psych: Normal affect. Test Results: EKG is sinus tach at 111 with frequent PACs. CBC is marked for hemoglobin of 15.7. Chem-7 is more for creatinine 1.34. Troponins negative. TSH is 0.28. Chest x-ray shows chronic changes with a hiatal hernia. No acute disease. Emergency Department Course and Treatment: On the monitor the patient was flipping between sinus rhythm and atrial fibrillation frequently. She was given a dose of Lopressor p.o. and Eliquis p.o. Treatment Plan: The patient was discussed with Dr. Funk. At this time it is felt that admission to the hospital is not necessary. She will have her lisinopril decreased to 10 mg a day. She will be placed on Eliquis. She will also be placed on 25 mg of Lopressor twice daily. She is instructed to follow- up with Dr. Granado or Dr. Funk as soon as possible. Return to the emergency department for any worsening symptoms. Disposition: To home in improved and stable condition. Impression: 1. Atrial fibrillation. 2. Low TSH. This note was generated with Dragon dictation software. It may contain incorrect words, spelling, and punctuation that were not noted in review of the chart prior to signing ED Disposition - Plan for ED Patient: Disposition: Home or Assisted Living Chief Complaint: Palpitations Instructions: ED Afib Prescriptions: Lisinopril [Zestril] 10 mg PO DAILY #30 tablet Apixaban [Eliquis] 5 mg PO BID #60 tablet Metoprolol Tartrate [Lopressor (Beta Dory)] 25 mg PO BID #60 tablet Referrals: Feliciano Murguia MD [STAFF PHYSICIAN] - As soon as possible Jeffery Funk MD [STAFF PHYSICIAN] - As soon as possible Additional Instructions: Decrease your lisinopril to 10 mg a day.
[2017-12-18] MEDS: Metoprolol Tartrate 25 MG Tablet PO (19:00)
[2017-12-18] MEDS: APIXABAN 5 MG TABLET PO (19:00)
[2017-12-18 19:05] VITALS: BP 150/91; PULSE 72; RESP 20; O2SAT 99
== END 2017-12-18 19:07 | disposition home or self-care (01) ==
PROVIDERS: Emergency Provider Emergency Medicine
DX: I48.91 Unspecified atrial fibrillation (principal); I25.10 Atherosclerotic heart disease of native coronary artery without angina pectoris; I10 Essential (primary) hypertension; E78.00 Pure hypercholesterolemia, unspecified; E03.9 Hypothyroidism, unspecified; Z95.1 Presence of aortocoronary bypass graft
CPT/HCPCS: 71045; 80048; 84443; 84484; 85025; 93005; 99284; A4216

== ENCOUNTER → 2018-01-23 10:30 | Outpatient (CLI) | payer MEDICARE, MEDICAID, SELFPAY | PROVIDERS: Family Provider Family Medicine; Visit Provider Internal Medicine Cardiovascular Disease | DX: I48.0 Paroxysmal atrial fibrillation (principal) | CPT/HCPCS: 93225; 93226 ==

== ENCOUNTER → 2018-01-28 07:24 | Outpatient (CLI) | payer MEDICARE, MEDICAID, SELFPAY ==
--- NOTE | 2018-01-28 07:27 | RAD_ITS ---
STUDY: X-RAY - ESOPHAGUS (BARIUM SWALLOW) WITH FLUOROSCOPY REASON FOR EXAM: Female, 72 years old. Dysphagia. Heartburn. TECHNIQUE: 21 view(s) of the esophagus were obtained following swallowing of barium. FLUOROSCOPY TIME (if supplied): (0:45) minutes/seconds COMPARISON: None. FINDINGS: The patient had a seizure during the examination. There is no demonstrated esophageal foreign body. There is no demonstrated stricture or mucosal abnormality. Moderate size paraesophageal hernia without reflux. The patient ingested a 12 mm tablet of barium without any difficulty. There is atherosclerotic calcification of the aortic arch with tortuosity of the descending aorta. Normal visualized pulmonary parenchyma. There are degenerative changes of the visualized thoracic spine. 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 Electronically Signed: Geoffrey Lezama MD at 10:39 EDT Tel [phone], Service support ,
== END ==
PROVIDERS: Family Provider Family Medicine; Visit Provider Internal Medicine Gastroenterology
DX: R13.10 Dysphagia, unspecified (principal)
CPT/HCPCS: 74220

== ENCOUNTER → 2018-08-04 07:57 | Outpatient (CLI) | payer MEDICARE, MEDICAID, SELFPAY ==
[2018-07-29 10:05] VITALS: BMI 41.0
[2018-08-04 09:17] LABS: AST(SGOT) 17 U/L (15-37); Alanine Aminotransfer ALT/SGPT 24 U/L (13-56); Albumin, Serum 3.4 g/dL (3.2-5.0); Alkaline Phosphatase 124 U/L (45-117); Bilirubin, Direct 0.11 mg/dL (0.00-0.30); Cholesterol 191 mg/dL (200); Globulin 3.4 g/dL (2.2-4.2); High Density Lipoprotein 51 mg/dL; Protein, Total 6.8 g/dL (6.4-8.2); Triglycerides 213 mg/dL; Very Low Density Lipoprotein 43 mg/dL (5-40)
== END ==
PROVIDERS: Family Provider Family Medicine; Referring Provider Physician Assistant Medical; Visit Provider Physician Assistant Medical
DX: E78.00 Pure hypercholesterolemia, unspecified (principal); I10 Essential (primary) hypertension; I25.10 Atherosclerotic heart disease of native coronary artery without angina pectoris; I48.0 Paroxysmal atrial fibrillation
CPT/HCPCS: 36415; 80061; 80076

== ENCOUNTER → 2018-12-30 16:03 | Outpatient (CLI) | payer MEDICARE, MEDICAID, SELFPAY ==
[2018-12-30 14:37] VITALS: BMI 42.7
[2018-12-30 17:29] LABS: Absolute Lymphocyte Count 2.09 X10^3/ul (0.83-4.51); Absolute Neutrophil Count 2.5 X10^3/uL (2.0-7.7); Basophil# 0.04 X10^3/uL; Basophil% 0.7 % (0-1); Eosinophil# 0.12 X10^3/uL; Eosinophils% 2.2 % (0-5); Hematocrit 41.1 % (37-47); Hemoglobin 13.5 g/dl (12.0-15.0); Lymphocyte # 2.09 X10^3/ul (4.0); Mean Corp Hgb Conc 32.8 g/gl (32-36); Mean Corpuscular Hgb 28.7 pg (27.0-32.0); Mean Corpuscular Volume 87.3 fL (81-99); Mean Platelet Vol. 10.9 fl (6.2-12.0); Monocyte# 0.64 X10^3/uL; Monocyte% 11.9 % (0-10); Neutrophil # 2.47 X10^3/uL (2.7-7.7); Neutrophil % 46.2 % (47-70); Platelet Count 190 K/mm3 (150-450); RBC Distribution Width CV 12.7 % (11.6-14.6); RBC Distribution Width SD 40.9 fl (35.1-43.9); Red Blood Count 4.71 M/mm3 (4.2-5.4); White Blood Count 5.4 K/mm3 (4.4-11.0)
[2018-12-30 17:33] LABS: POSITIVE COUNT NO; POSITIVE DIFFERENTIAL NO; POSITIVE MORPHOLOGY NO
[2018-12-30 17:56] LABS: Anion Gap 3 (5-15); BUN 14 mg/dL (7-18); BUN/Creat Ratio 11.7 RATIO (10-20); Calcium,Total 9.1 mg/dL (8.5-10.1); Chloride 106 mmol/L (98-107); EST Glomerular Filtration Rate 47 mL/min (>60); Est Glom Filt Rate - Afr Amer 57 mL/min (>60); Glucose 87 mg/dL (74-106); Potassium 4.3 mmol/L (3.5-5.1); Sodium Level 138 mmol/L (136-145); Thyroid Stim Hormone (TSH) 0.43 uIU/mL (0.358-3.74)
== END ==
PROVIDERS: Family Provider Family Medicine; Referring Provider Physician Assistant Medical; Visit Provider Physician Assistant Medical
DX: I48.0 Paroxysmal atrial fibrillation (principal); R55 Syncope and collapse; I25.10 Atherosclerotic heart disease of native coronary artery without angina pectoris; I10 Essential (primary) hypertension; R42 Dizziness and giddiness; R06.00 Dyspnea, unspecified
CPT/HCPCS: 36415; 80048; 84443; 85025

== ENCOUNTER → 2019-01-08 06:25 | Outpatient (CLI) | payer MEDICARE, MEDICAID, SELFPAY ==
[2018-12-30 14:37] VITALS: BMI 42.7
--- NOTE | 2019-01-08 06:27 | ECHOD_ITS ---
Reason For Study: SOB Procedure This was a 2D Doppler, Color Flow transthoracic echocardiogram. Exam performed in department. Left Ventricle Normal LV size. Mild concentric left ventricular hypertrophy. Left ventricular systolic function is normal. The estimated ejection fraction is 55 %. Diastolic function is indeterminate. No regional wall motion abnormalities noted. Atria Normal left atrium. Normal right atrium. Mitral Valve There is mild mitral annular calcification. Mild (1+) mitral valve insufficiency. Tricuspid Valve Normal tricuspid valve. Mild tricuspid valve insufficiency. Aortic Valve Trisinus/trileaflet aortic valve. Mild (1+) eccentric aortic valve insufficiency. Pulmonic Valve The pulmonic valve is not well visualized. Great Vessels Normal aortic root. The pulmonary artery is normal size. Normal inferior vena cava. Pericardium/Pleural No pericardial effusion. MMode/2D Measurements & Calculations LVIDd: 4.7 cm IVSd: 1.3 cm Ao root diam: 3.2 cm LVIDs: 2.5 cm LVPWd: 1.2 cm RVDd: 3.0 cm FS: 46.5 % LAV(MOD-bp): 42.8 ml LA A4 area: 16.6 cm2 LA dimension(2D): 3.7 cm LAV(MOD-bp) Indexed: 19.7 ml/m2 LAV(MOD-sp2): 46.7 ml LAV(MOD-sp4): 37.3 ml RA A4 area: 13.9 cm2 Doppler Measurements & Calculations MV E max daiana: 96.4 cm/sec Ao V2 max: 169.7 cm/sec AI max daiana: 446.9 cm/sec Ao max P.5 mmHg AI max P.9 mmHg AI dec slope: 219.3 cm/sec2 AI P1/2t: 596.8 msec LV V1 max: 108.1 cm/sec PA V2 max: 111.1 cm/sec TR max adiana: 255.5 cm/sec LV V1 max P.7 mmHg TR max P.1 mmHg Interpretation Summary Normal LV size. Left ventricular systolic function is normal. The estimated ejection fraction is 55 %. Diastolic function is indeterminate. Mild (1+) mitral valve insufficiency. Mild (1+) eccentric aortic valve insufficiency. Ordering Physician: Juju Ch/Jeffery Funk Referring Physician: Bal Benz Performed By: Griselda Parks RDCS
--- NOTE | 2019-01-08 09:34 | STRESSREP ---
Stress Test Report Date: 01-08-19 Procedure: Pharmacologic stress nuclear imaging study Indications: Chest pain; CAD; CABG Consent: Per the patient Procedure: The patient underwent pharmacologic (Regadenoson) evaluation with a peak heart rate of 83 beats per minute (55 %predicted maximal heart rate) and a peak blood pressure of 148/80 mmHg. The baseline ECG demonstrated normal sinus rhythm; nonspecific ST/T wave abnormality. The peak pharmacologic ECG demonstrated no obvious ECG changes. There were no cardiac dysrhythmias pretest, during pharmacologic infusion, or recovery. There was no complaint of chest discomfort during pharmacologic infusion or recovery. The examination was discontinued secondary to completion of protocol. Impression: 1. Pharmacologic (Regadenoson) evaluation 2. Peak pharmacologic ECG with continued nonspecific ST/T wave abnormality. 3. There were no cardiac dysrhythmias pretest, during pharmacologic infusion, or recovery. 4. Nuclear images pending Myocardial perfusion imaging study: Technique: The patient was injected with 14.2 millicuries of technetium 99m Cardiolite and subsequently rest SPECT Cardiolite nuclear imaging was obtained in the horizontal long, vertical long, and short axis views. The patient underwent pharmacologic (Regadenoson) evaluation with a peak heart rate of 83 beats per minute (55 % percent predicted maximal heart rate) and a peak blood pressure of 148/80 mmHg. The patient was injected with 44.7 millicuries of technetium 99m Cardiolite and subsequently stress SPECT Cardiolite nuclear imaging was obtained in the horizontal long, vertical long, and short axis views. A gated Cardiolite study at peak stress was obtained. Interpretation: Rest and stress SPECT Cardiolite nuclear imaging status post realignment, normalization, and attenuation correction demonstrate the appearance of relative uniform tracer uptake and myocardial perfusion appearing within normal limits at rest. Status post stress there is notation of an area of diminished myocardial perfusion/tracer uptake in portions of the distal anterior/anterior lateral/anterior apical segments. There is diminished and systolic thickening and brightening.. The gated Cardiolite study demonstrates myocardial thickening and inward wall motion. The reported LVEF is 56 %. Impression: 1. Rest and stress SPECT currently nuclear imaging demonstrate post stress myocardial perfusion changes concerning for an area of stress-induced myocardial ischemia and portions of the distal anterior, distal anterolateral, and anterior apical segments. 2. The gated Cardiolite study reports an LVEF of 56 %. This note was generated with Dragon dictation software. It may contain incorrect words, spelling, and punctuation that were not noted in checking the note before signing.
== END ==
PROVIDERS: Family Provider Family Medicine; Referring Provider Physician Assistant Medical; Visit Provider Physician Assistant Medical
DX: R55 Syncope and collapse (principal); I48.0 Paroxysmal atrial fibrillation; I25.10 Atherosclerotic heart disease of native coronary artery without angina pectoris; I10 Essential (primary) hypertension; R42 Dizziness and giddiness
CPT/HCPCS: 78452; 93017; 93306; A9500; A4216; J2785

== ENCOUNTER → 2019-01-09 15:11 | Outpatient (CLI) | payer MEDICARE, MEDICAID, SELFPAY ==
[2019-01-09 15:05] VITALS: BMI 42.7
--- NOTE | 2019-01-09 15:21 | RAD_ITS ---
HISTORY: PRE OP HEART CATH;CHEST PAIN, H/O AFIB EXAM: XR Chest 2 Views COMPARISON: 12/18/17 CXR FINDINGS: LINES/DEVICES: None. LUNGS: No evidence of pneumothorax, pleural effusion, pneumonia, or pulmonary edema. Incidental calcified granuloma lateral aspect right upper lung. MEDIASTINUM AND CARDIOVASCULAR STRUCTURES: Cardiac silhouette not enlarged. Central airways and mediastinal contour are unremarkable. Moderate to large hiatal hernia again demonstrated. BONES AND SOFT TISSUES: No acute findings. Sternotomy wires and mediastinal surgical clips again demonstrated. RAD/Chest PA and Lateral IMPRESSION: No radiographic evidence of acute cardiopulmonary disease. Hiatal hernia, prior CABG. at 2155 Reported and signed by: Hang Mo MD Electronically Signed: Hang Mo, at 21:54 EDT Tel , Service support ,
== END ==
PROVIDERS: Family Provider Family Medicine; Referring Provider Internal Medicine Cardiovascular Disease; Visit Provider Internal Medicine Cardiovascular Disease
DX: I10 Essential (primary) hypertension (principal); R55 Syncope and collapse; I48.0 Paroxysmal atrial fibrillation; I25.10 Atherosclerotic heart disease of native coronary artery without angina pectoris; E78.5 Hyperlipidemia, unspecified; E66.9 Obesity, unspecified; R94.39 Abnormal result of other cardiovascular function study; Z95.1 Presence of aortocoronary bypass graft
CPT/HCPCS: 71046

== ENCOUNTER 2019-01-12 07:28 | Day surgery (SDC) | payer MEDICARE, MEDICAID, SELFPAY ==
[2018-12-30 14:37] VITALS: BMI 42.7
[2019-01-09 13:26] VITALS: BMI 42.7
[2019-01-09 15:05] VITALS: BMI 42.7
--- NOTE | 2019-01-12 09:37 | CL.D_ITS ---
Patient Name: AH GARAY Study Date: 01/12/2019 Performing: Jeffery Funk MD Ht: 64.17 inches 163 cm : 1945 Wt: 249.12 lbs 113 kg Age: 73 Gender: female BSA: 2.15 PROCEDURE(S) PERFORMED DL54-ECD/COR/LV/CABG CLINICAL PROFILE AND INDICATIONS Indications: Suspected CAD Heart Failure: None Stress/Imaging Date: 01/08/2019Stress Test with SPECT MPI: Positive Low Risk CONCLUSIONS Occluded SVG to RCA and Mid LAD, patent PAN and [place] RCA and LCX RECOMMENDATIONS Medical therapy Aggresive BP control DESCRIPTION OF PROCEDURE The patient arrived to the procedure lab. The risks and benefits of the procedure as well as a full d escription of our services here and current unavailability of surgical backup were fully explained to the patient and/or their significant other prior to the catheterization. The Timeout was completed, verifying the correct patient and procedure. The patient's procedural site was prepped and draped in the usual fashion. Local anesthetic was given subcutaneously to right groin region with Lidocaine 2%. Using a modified Seldinger technique, arterial access was obtained via the right femoral artery, a 5 Fr sheath was inserted. Left internal mammary artery graft to the LAD selective angiography was perf ormed in multiple views using a 5 Fr. IM catheter. Left Coronary Artery selective angiography was per formed in multiple views using a 5 Fr. JL4 catheter. Left Ventriculography was performed in MILES proje ction using a 5 Fr. Pigtail catheter. LV to AO pullback pressures were then recorded.The arterial sheath was pulled and a Mynx closure device was deployed for hemostasis CORONARY ANGIOGRAPHY DOMINANCE: Right Dominant LEFT HEART ASSESSMENT Left Ventricular Ejection Fraction: by LV Gram 60 % Normal LV wall motion Normal Left Ventricular systolic function LEFT MAIN: Mild calcification, Angiographically normal LEFT ANTERIOR DECENDING ARTERY: MID LAD: 80 % Stenosis DIAGONAL 1: Ostial - 70 % Stenosis and long area of disease DIAGONAL 2: Proximal - Diffusely diseased up to 70 % CIRCUMFLEX ARTERY: No significant disease noted RIGHT CORONARY ARTERY: MID RCA: Diffusely diseased up to 40 % DISTAL RCA: Moderate luminal irregularities up to 50% GRAFTS: PAN graft to the Mid LAD is patent Saphenous Vein graft to the RPDA is totally occluded COMPLICATIONS No Complications PROCEDURE MEDICATIONS Versed 1 mg IV Oxygen: 2 L/min via nasal cannula Baby Aspirin (81mg) 1 Tabs PO @ 01/12/2019 07:59:25 SUMMARY OF HEMODYNAMIC DATA Time AIR REST ECG 08:05:22 ECG 08:23:43 AO 158/77 (110) SA 08:50:51 LV 145/16, 21 09:16:10 LV 153/4, 22 09:16:22 LV 151/5, 29 09:16:28 LV 146/6, 09:17:25 LVp 148/7, 09:17:30 AOp 158/70 (105) 09:17:35 AO 160/72 (106) 09:18:59 09:34:42 Signed By Jeffery Funk MD On 01/12/2019 09:36:14 Jeffery Funk MD
--- NOTE | 2019-01-12 13:22 | PCM.HP.BLA ---
Problem List (1) Abnormal stress test Status: Acute (2) Atherosclerosis of coronary artery of [place] heart without angina pectoris Status: Chronic Qualifiers: (3) Essential (primary) hypertension Status: Chronic (4) H/O coronary artery bypass surgery Status: Chronic Comment: CABG x 2 Dr Kelly at [facility] 2007 (5) HLD (hyperlipidemia) Status: Chronic Qualifiers: (6) Paroxysmal atrial fibrillation Status: Chronic History and Physical Date of Admission: 01/12/19 HPI Details: HA GARAY, is a 73 F who presents to the office today for a cardiovascular follow-up. She does have a history of coronary artery disease with bypass surgery x2 in 2007, hypertension hyperlipidemia and paroxysmal atrial fibrillation. Pt sts that she was walking her dog yesterday and felt lightheadedness, she felt she was going to pass out. She felt like everything was spinning. She does have palpitations. She is unsure of these have gotten worse. It feels like it is beating harder. She did not have these yesterday during her episode. She does have chest pain- these appears to be newer and it is to the left of her sternum. It comes and goes. It is not brought on by anything in particular. She does have swelling in her legs. 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 Is patient in pain?: No Allergies NOVACAINE Adverse Reaction (Uncoded 01/22/18 16:00) ELEVATED BLOOD PRESSURE Medications Aspirin [Aspirin, Baby] 81 mg PO QHS 07/19/17 [History Confirmed 12/30/18] Atorvastatin Calcium [Lipitor] 20 mg PO QHS 07/19/17 [History Confirmed 12/30/18] Levothyroxine [Synthroid] 112 mcg PO DAILY 07/19/17 [History Confirmed 12/30/18] Apixaban [Eliquis] 5 mg PO BID #60 tab 12/18/17 [Rx Confirmed 12/30/18] lisinopril 5 mg tablet 5 mg PO QDAY #90 tab 01/22/18 [Rx Confirmed 12/30/18] metoprolol tartrate 50 mg tablet 50 mg PO BID #60 tab 01/27/18 [Rx Confirmed 12/30/18] levetiracetam 250 mg tablet 500 mg PO BID tab 07/29/18 [History Confirmed 12/30/18] lorazepam 0.5 mg tablet PO 30 Days #45 tab 12/30/18 [History Confirmed 12/30/18] omeprazole 20 mg capsule,delayed release PO 30 Days #60 cap 12/30/18 [History Confirmed 12/30/18] [facility], LAT[facility] Medical History Paroxysmal atrial fibrillation (Acute) Atherosclerosis of coronary artery of [place] heart without angina pectoris (Chronic) HLD (hyperlipidemia) (Chronic) HTN (hypertension) (Chronic) Obesity (BMI 30-39.9) (Chronic) Alzheimer's dementia (Chronic) Anxiety (Chronic) GERD (gastroesophageal reflux disease) (Chronic) Hypothyroidism (Chronic) Pseudoseizures (Chronic) Surgical History H/O coronary artery bypass surgery (Chronic ~2007) Family History Mother Heart disease Father Heart disease Social History Smoking Status: Never smoker alcohol intake: never caffeine: Yes Type: coffee Number of servings: 6 ROS Const Const: Negative for fatigue, weakness, fever(s) or headache(s) Eyes Eyes: Negative for blind spots, loss of peripheral vision or transient loss of vision ENT ENT: Positive for dizziness; negative for headache(s), tinnitus or Nosebleed/epistaxis Cardio Chest Pain: Yes Palpitations: Yes Edema: Bilateral Muscle aches with walking: None Resp Respiratory: Positive for SOB with activity; negative for SOB at rest, SOB orthopnea\SOB lying down or Cough GI GI: Negative nausea, vomiting, heartburn or vomiting blood/hematemesis : Negative for hematuria Musc Musc: Negative for muscle aches/ myalgia Neuro Neuro: Positive for dizziness and lightheadedness; negative for near syncope, syncope, orthostatic symptoms, headache(s) or weakness Moises Hematologic/Lymphatic: Negative for easy bleeding Endo Endo: Negative for fatigue Cardiology Exam Const Appearance: cooperative, no acute distress and well developed Orientation: alert, awake and oriented x3 Head Head: normocephalic and atraumatic Mouth: moist mucous membranes Eyes General: appearance normal, both eyes and all related structures Conjunctivae: conjunctivae normal Pupils: PERRL EOM: EOM intact bilaterally Neck Neck: normal visual inspection, no lymphadenopathy and no JVD Carotids: Negative bruit Neck Mass: Negative Neck mass Chest Chest inspection: normal inspection of the chest and symmetric chest movement Auscultation: Bilateral: Clear to Auscultation Cardio Palpation: normal PMI Rate: regular rate Rhythm: regular rhythm Heart sounds: S1 normal and S2 normal; negative rub, gallop or murmur GI GI: normal to inspection, soft, no hepatosplenomegaly and bowel sounds present; negative tender Neuro General: alert, awake, oriented x3, CN's II-XI intact bilaterally and moves all extremities Extremities Pulses: Normal: Right Posterior Tibial Pulse, Left Posterior Tibial Pulse, Right Radial Pulse, Left Radial Pulse Lower Extremity Edema: +1: Bilateral Psych Psychological: normal affect Assessment & Plan 1. Atherosclerosis of [place] coronary artery of [place] heart without angina pectoris I25.10 Plan - AIDE Graf With patient's symptoms of fatigue and shortness of breath and atypical chest discomfort would like to obtain a stress test as it has been a while since she is last had one done. We will not make any medication adjustments at this time. Orders Orders: 12 [place] [facility] [place]/18 Basic Metabolic Profile (BMP) 12/30/18 Thyroid Stim Hormone (TSH) 12/30/18 Echo Complete 12/30/18 CBC W/Diff, Automated 12/30/18 Nuclear Stress Test - Chemical 12/30/18 Carotid Duplex Ultrasound 12/30/18 2. Near syncope R55 AIDE Pearl With patient's near syncope would like to obtain a stress test, echocardiogram and carotid ultrasound. Orders Orders: 12 Lead E[place] [facility] [place]/18 Basic Metabolic Profile (BMP) 12/30/18 Thyroid Stim Hormone (TSH) 12/30/18 Echo Complete 12/30/18 CBC W/Diff, Automated 12/30/18 Nuclear Stress Test - Chemical 12/30/18 Carotid Duplex Ultrasound 12/30/18 3. Paroxysmal atrial fibrillation I48.0 AIDE Pearl Has not had any symptomatic recurrence. She remain on her beta-italo and her anticoagulation. Orders Orders: 12 Lead E[place] performed [place] [facility]/30/18 Basic Metabolic Profile (BMP) 12/30/18 Thyroid Stim Hormone (TSH) 12/30/18 Echo Complete 12/30/18 CBC W/Diff, Automated 12/30/18 Nuclear Stress Test - Chemical 12/30/18 Carotid Duplex Ultrasound 12/30/18 4. Fatigue, unspecified type R53.83 Dc - AIDE Graf With her symptoms of fatigue full obtain labs, will also obtain testing mentioned above. 5. Dyspnea on exertion R06.09 Plan - AIDE Graf As mentioned above we will obtain labs, stress test, echocardiogram. Plan Detail Other Orders Orders: 12 Lead E[place] [facility] [place]/30/18 I10, R06.00, R42 Basic Metabolic Profile (BMP) 12/30/18 I10, R06.00, R42 Thyroid Stim Hormone (TSH) 12/30/18 I10, R06.00, R42 Echo Complete 12/30/18 I10, R06.00, R42 CBC W/Diff, Automated 12/30/18 I10, R06.00, R42 Nuclear Stress Test - Chemical 12/30/18 I10, R06.00, R42 Carotid Duplex Ultrasound 12/30/18 I10, R06.00, R42 Pt underwent a stress test which was noted to be abnormal on 01/08/2019. She is here today for a diagnostic heart cath.
--- NOTE | 2019-01-12 13:27 | HP.PCM_ITS ---
Problem List (1) Abnormal stress test Status: Acute (2) Atherosclerosis of coronary artery of [place] heart without angina pectoris Status: Chronic Qualifiers: (3) Essential (primary) hypertension Status: Chronic (4) H/O coronary artery bypass surgery Status: Chronic Comment: CABG x 2 Dr Kelly at [place] 2007 (5) HLD (hyperlipidemia) Status: Chronic Qualifiers: (6) Paroxysmal atrial fibrillation Status: Chronic History and Physical Date of Admission: 01/12/19 HPI Details: HA GARAY, is a 73 F who presents to the office today for a cardiovascular follow-up. She does have a history of coronary artery disease with bypass surgery x2 in 2007, hypertension hyperlipidemia and paroxysmal atrial fibrillation. Pt sts that she was walking her dog yesterday and felt lightheadedness, she felt she was going to pass out. She felt like everything was spinning. She does have palpitations. She is unsure of these have gotten worse. It feels like it is beating harder. She did not have these yesterday during her episode. She does have chest pain- these appears to be newer and it is to the left of her sternum. It comes and goes. It is not brought on by anything in particular. She does have swelling in her legs. 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, fatigue/no energy ([employer] pt) Ash Kier Boiler Required: No Is patient in pain?: No Allergies NOVACAINE Adverse Reaction (Uncoded 01/22/18 16:00) ELEVATED BLOOD PRESSURE Medications Aspirin [Aspirin, Baby] 81 mg PO QHS 07/19/17 [History Confirmed 12/30/18] Atorvastatin Calcium [Lipitor] 20 mg PO QHS 07/19/17 [History Confirmed 12/30/18] Levothyroxine [Synthroid] 112 mcg PO DAILY 07/19/17 [History Confirmed 12/30/18] Apixaban [Eliquis] 5 mg PO BID #60 tab 12/18/17 [Rx Confirmed 12/30/18] lisinopril 5 mg tablet 5 mg PO QDAY #90 tab 01/22/18 [Rx Confirmed 12/30/18] metoprolol tartrate 50 mg tablet 50 mg PO BID #60 tab 01/27/18 [Rx Confirmed 12/30/18] levetiracetam 250 mg tablet 500 mg PO BID tab 07/29/18 [History Confirmed 12/30/18] lorazepam 0.5 mg tablet PO 30 Days #45 tab 12/30/18 [History Confirmed 12/30/18] omeprazole 20 mg capsule,delayed release PO 30 Days #60 cap 12/30/18 [History Confirmed 12/30/18] [facility] Medical History Paroxysmal atrial fibrillation (Acute) Atherosclerosis of coronary artery of [place] heart without angina pectoris (Chronic) HLD (hyperlipidemia) (Chronic) HTN (hypertension) (Chronic) Obesity (BMI 30-39.9) (Chronic) Alzheimer's dementia (Chronic) Anxiety (Chronic) GERD (gastroesophageal reflux disease) (Chronic) Hypothyroidism (Chronic) Pseudoseizures (Chronic) Surgical History H/O coronary artery bypass surgery (Chronic ~2007) Family History Mother Heart disease Father Heart disease Social History Smoking Status: Never smoker alcohol intake: never caffeine: Yes Type: coffee Number of servings: 6 ROS Const Const: Negative for fatigue, weakness, fever(s) or headache(s) Eyes Eyes: Negative for blind spots, loss of peripheral vision or transient loss of vision ENT ENT: Positive for dizziness; negative for headache(s), tinnitus or Nosebleed/epistaxis Cardio Chest Pain: Yes Palpitations: Yes Edema: Bilateral Muscle aches with walking: None Resp Respiratory: Positive for SOB with activity; negative for SOB at rest, SOB orthopnea\SOB lying down or Cough GI GI: Negative nausea, vomiting, heartburn or vomiting blood/hematemesis : Negative for hematuria Musc Musc: Negative for muscle aches/ myalgia Neuro Neuro: Positive for dizziness and lightheadedness; negative for near syncope, syncope, orthostatic symptoms, headache(s) or weakness Moises Hematologic/Lymphatic: Negative for easy bleeding Endo Endo: Negative for fatigue Cardiology Exam Const Appearance: cooperative, no acute distress and well developed Orientation: alert, awake and oriented x3 Head Head: normocephalic and atraumatic Mouth: moist mucous membranes Eyes General: appearance normal, both eyes and all related structures Conjunctivae: conjunctivae normal Pupils: PERRL EOM: EOM intact bilaterally Neck Neck: normal visual inspection, no lymphadenopathy and no JVD Carotids: Negative bruit Neck Mass: Negative Neck mass Chest Chest inspection: normal inspection of the chest and symmetric chest movement Auscultation: Bilateral: Clear to Auscultation Cardio Palpation: normal PMI Rate: regular rate Rhythm: regular rhythm Heart sounds: S1 normal and S2 normal; negative rub, gallop or murmur GI GI: normal to inspection, soft, no hepatosplenomegaly and bowel sounds present; negative tender Neuro General: alert, awake, oriented x3, CN's II-XI intact bilaterally and moves all extremities Extremities Pulses: Normal: Right Posterior Tibial Pulse, Left Posterior Tibial Pulse, Right Radial Pulse, Left Radial Pulse Lower Extremity Edema: +1: Bilateral Psych Psychological: normal affect Assessment & Plan 1. Atherosclerosis of [place] coronary artery of [place] heart without angina pectoris I25.10 Plan - AIDE Graf With patient's symptoms of fatigue and shortness of breath and atypical chest discomfort would like to obtain a stress test as it has been a while since she is last had one done. We will not make any medication adjustments at this time. Orders Orders: 12 Lead EKG performed by [facility] 12/30/18 Basic Metabolic Profile (BMP) 12/30/18 Thyroid Stim Hormone (TSH) 12/30/18 Echo Complete 12/30/18 CBC W/Diff, Automated 12/30/18 Nuclear Stress Test - Chemical 12/30/18 Carotid Duplex Ultrasound 12/30/18 2. Near syncope R55 AIDE Pearl With patient's near syncope would like to obtain a stress test, echocardiogram and carotid ultrasound. Orders Orders: 12 Lead EKG performed by [facility] 12/30/18 Basic Metabolic Profile (BMP) 12/30/18 Thyroid Stim Hormone (TSH) 12/30/18 Echo Complete 12/30/18 CBC W/Diff, Automated 12/30/18 Nuclear Stress Test - Chemical 12/30/18 Carotid Duplex Ultrasound 12/30/18 3. Paroxysmal atrial fibrillation I48.0 AIDE Pearl Has not had any symptomatic recurrence. She remain on her beta-italo and her anticoagulation. Orders Orders: 12 Lead EKG performed by [facility] 12/30/18 Basic Metabolic Profile (BMP) 12/30/18 Thyroid Stim Hormone (TSH) 12/30/18 Echo Complete 12/30/18 CBC W/Diff, Automated 12/30/18 Nuclear Stress Test - Chemical 12/30/18 Carotid Duplex Ultrasound 12/30/18 4. Fatigue, unspecified type R53.83 Dc - AIDE Graf With her symptoms of fatigue full obtain labs, will also obtain testing mentioned above. 5. Dyspnea on exertion R06.09 Plan - AIDE Graf As mentioned above we will obtain labs, stress test, echocardiogram. Plan Detail Other Orders Orders: 12 Lead EKG performed by [facility] 12/30/18 I10, R06.00, R42 Basic Metabolic Profile (BMP) 12/30/18 I10, R06.00, R42 Thyroid Stim Hormone (TSH) 12/30/18 I10, R06.00, R42 Echo Complete 12/30/18 I10, R06.00, R42 CBC W/Diff, Automated 12/30/18 I10, R06.00, R42 Nuclear Stress Test - Chemical 12/30/18 I10, R06.00, R42 Carotid Duplex Ultrasound 12/30/18 I10, R06.00, R42 Pt underwent a stress test which was noted to be abnormal on 01/08/2019. She is here today for a diagnostic heart cath.
== END 2019-01-12 12:15 | disposition home or self-care (01) ==
LOC: CLSP 07:30
PROVIDERS: Family Provider Family Medicine; Visit Provider Internal Medicine Cardiovascular Disease
DX: I25.10 Atherosclerotic heart disease of native coronary artery without angina pectoris (principal); I25.82 Chronic total occlusion of coronary artery; R94.39 Abnormal result of other cardiovascular function study; M79.89 Other specified soft tissue disorders; R55 Syncope and collapse; I10 Essential (primary) hypertension; E78.5 Hyperlipidemia, unspecified; I48.0 Paroxysmal atrial fibrillation; Z95.1 Presence of aortocoronary bypass graft; Z79.82 Long term (current) use of aspirin; G30.9 Alzheimer's disease, unspecified; F02.80 Dementia in other diseases classified elsewhere, unspecified severity, without behavioral disturbance, psychotic disturbance, mood disturbance, and anxiety; K21.9 Gastro-esophageal reflux disease without esophagitis; E03.9 Hypothyroidism, unspecified; R53.83 Other fatigue; R06.09 Other forms of dyspnea
CPT/HCPCS: 93459; 99152; 99153; C1760; J7040; C1769; Q9967

== ENCOUNTER → 2019-02-05 09:11 | Outpatient (CLI) | payer MEDICARE, MEDICAID, SELFPAY ==
[2019-01-09 15:05] VITALS: BMI 42.7
--- NOTE | 2019-02-05 09:15 | RAD_ITS ---
STUDY: X-RAY - PELVIS AND BILATERAL HIPS REASON FOR EXAM: Female, 73 years old. Patient fell one month ago TECHNIQUE: AP view of the pelvis.? 2 views of the right hip, and 2 views of the left hip were obtained. COMPARISON: None. FINDINGS: There are degenerative changes involving the lower lumbosacral spine and both sacroiliac joints and hip joint is well-maintained. Degenerative changes of the symphysis pubis. There are no acute fractures or dislocations in the visualized soft tissues are normal. RAD/Hips B/L min 2 views w/ Pelvis IMPRESSION: Degenerative changes of the lower lumbosacral spine, sacroiliac joints and the symphysis pubis. The hip joints look normal. No acute fracture Electronically Signed: Braden Angulo MD at 8:29 EDT Tel , Service support ,
== END ==
PROVIDERS: Family Provider Family Medicine; Referring Provider Chiropractor; Visit Provider Chiropractor
DX: S73.101A Unspecified sprain of right hip, initial encounter (principal)
CPT/HCPCS: 73521

== ENCOUNTER → 2019-04-20 09:08 | Outpatient (CLI) | payer MEDICARE, MEDICAID, SELFPAY ==
[2019-01-09 15:05] VITALS: BMI 42.7
--- NOTE | 2019-04-20 15:28 | EEG ---
- Electroencephalogram Date of service 04/20/2019 History EEG is being done in this 73 yr F to rule out seizures EEG Description: This is an 18 channel EEG with 10-20 lead placement system. Bipolar montages, and Referential montages were reviewed. Photic stimulation and Hyperventilation were performed. The posterior dominant rhythm is 10 HZ synchronous, symmetric, reacting to eye opening and closing. Photo stimulation elicited normal driving response but no abnormal photoparoxysmal response, Hyperventilation did not elicit any abnormal photoparoxysmal response. Sleep was identified. There is no abnormal background slowing noted. There was no epileptiform discharges or electrographic seizures noted during this recording. Muscle artefact noted in the bilateral temporal and right fronto-central leads during the recording. EEG Interpretation This is a normal awake and asleep EEG. There is no epileptiform discharges or electrographic seizures noted during the record.
== END ==
PROVIDERS: Family Provider Family Medicine; Referring Provider Nurse Practitioner Family; Visit Provider Nurse Practitioner Family
DX: R56.9 Unspecified convulsions (principal)
CPT/HCPCS: 95819

== ENCOUNTER → 2019-08-27 10:33 | Outpatient (CLI) | payer MEDICARE, MEDICAID, SELFPAY ==
[2019-08-25 08:04] VITALS: BMI 41.8
== END ==
PROVIDERS: Family Provider Family Medicine; Referring Provider Internal Medicine Cardiovascular Disease; Visit Provider Internal Medicine Cardiovascular Disease
DX: I48.0 Paroxysmal atrial fibrillation (principal); I10 Essential (primary) hypertension; R42 Dizziness and giddiness
CPT/HCPCS: 93225; 93226

== ENCOUNTER 2019-10-21 09:30 | Outpatient (RCR) | payer MEDICARE, MEDICAID, SELFPAY ==
[2019-08-25 08:04] VITALS: BMI 41.8
--- NOTE | 2019-09-21 09:48 | HP.PTEVAL ---
Patient's Visit Information HA GARAY is a 74 year old F referred to Physical Therapy by Mark Cowart MD with a diagnosis of BPPV L. Date of Evaluation: 09/21/19 Physical Therapist: Mark Fowler, REIK, OCS, CSCS - Visit Plan Frequency: 1-2x /Week Duration: 2-4 Weeks Plan: 1-2x/week as needed for 2-4 weeks. Monitor poistional and effects of BD ex on vertigo.(doctor office notes present adn had positive test in his office with geotropic rotary nystagmus in L testing.). Pt refuses to use walker or cane and does not want balance therapy, just to get rid of vertigo. - Subjective Findings: Dtr present. Dtr says she has vertigo. Has spinning dizzyness and staggering. Been happening for two months. Not sure how it started. Staggers morning. Worse at times for unknown reason. Gets it about daily. Has had some good days. Turning head left in bed makes her spinning and it lasts for a little while. No falls. No cane or walker needed. Sleep is OK. Not employed. Spends day with TV and dog. Hard to take dog out when dizzy. Gets regular ex lying on floor. Lives alone without steps. Doing all ADLs with difficulty. - Objective Won't use cane or walker. Walks I on firm flat surface with lights. Trasnfers with UE I, without tends to go back into chair. steps are reciprocal needing one rail and fatigues quickly. Cervical AROM 65 rotation adn 45 ext without c/o pain. - B hallpike mehrdad today. - roll test. Oculomotor: no nystagmus with gaze or head shake. - skew eye deviation. -ocular tilt. - head thrust. Pursuit is normal and asymptomatic. Saccades are very slow and loses focus on activitiy but asymptomatic. VOR is aymptomatic horiz but hard to keep mind on task. - Balance Scores Functional Gait Assessment Score: 22 % Disability: 26.6700 CATSIB Score (Max score 120 seconds): 45 - Goals Goal 1:: abolish vertigo feeling Goal Time Frame: 2-4 Weeks Goal 2:: 25/30 FGA to diminish fall risk Goal Time Frame: 2-4 Weeks Goal 3:: Pt feel back to normal Goal Time Frame: 2-4 Weeks Goal 4:: No spinning when turning in bed. Goal Time Frame: 2-4 Weeks - Rehabilitation Potential Physical Therapy Diagnosis: Possible BPPV L but negative testing today. Rehabilitation Potential: Good - Anticipated Interventions Patient/Client Instruction: Educate patient on: Condition, Plan of Care For the Purpose of:: To increase tolerance to activity/condition/position Comment: positional treatment and other vest if needed. For the Purpose of:: To increase tolerance to activity/condition/position Thank you for the opportunity to evaluate your patient. For Medicare and Medicare HMO plans, please review the plan of care and approve it. It will need to be FAXED BACK to us at [phone] for Medicare purposes. For Medicare only, by signing this I certify the plan of care. Please let me know if there are questions or concerns regarding this plan of care. Physician Signature: Date:
--- NOTE | 2019-10-07 10:14 | HP.PTREVAL_ITS ---
Mark Cowart MD, It has been my pleasure to treat HA GARAY over the last 3 visits for BPPV L. Please see the progress note below for an update on the physical therapy plan of care! Subjective: Hard to talk today as she is sick in throat. Dizzyness is hit and miss. Getting up off the couch or bed can make her stagger. If turns left in bed will intermittently get it also quickly. Got exercises in most days and intermittently gets the same feeling as she gets rolling for same short period of time. Slow improvement with exerciss. Sees Dr. Cowart on Saturday. Objective/Function: - B hallpike mehrdad. - roll test today, no symptoms with these positions and no nystagmus...improved. head nods and turns and VOR are done today without symptoms. Transfers and walking is normal for her and slow but safe. One episode of dizzyness today arising from R sidelying for 2 seconds and consistent with blood pressure. Pt not responding subjectively as expected for positional vertigo and has negative objective tests today. She is admittedly poor with her memory. Plan Plan: Pt scheduled fro two more weeks but I have recommended f/u with doctor next week to see if other options as she is not responding as expected to vestibualr therapy subjectively despite objective improvements. Pt to jolene fter doctor visit if plan changes. Goals Goal 1:: abolish vertigo feeling Goal Time Frame: 2-4 Weeks Goal Progress: Not Progressing Goal 2:: 25/30 FGA to diminish fall risk Goal Time Frame: 2-4 Weeks Goal 3:: Pt feel back to normal Goal Time Frame: 2-4 Weeks Goal Progress: Not Progressing Goal 4:: No spinning when turning in bed. Goal Time Frame: 2-4 Weeks Goal Progress: Not Progressing Anticipated Interventions Patient/Client Instruction: Educate patient on: Condition, Plan of Care For the Purpose of:: To increase tolerance to activity/condition/position Comment: positional treatment and other vest if needed. For the Purpose of:: To increase tolerance to activity/condition/position Please do not hesitate to contact me at [phone] by phone or Fax: if you have questions or concerns regarding this new plan of care! Sincerely, Mark Fowler, DPT, OCS, CSCS
--- NOTE | 2019-12-15 13:28 | HP.PT.NRP ---
HA GARAY was seen in my office for initial evaluation on 09/21/19. The following Plan of Care was established for this patient: Initial Frequency: 1-2x /Week Initial Duration: 2-4 Weeks Patient/Client Instruction: Educate patient on: Condition, Plan of Care For the Purpose of:: To increase tolerance to activity/condition/position For the Purpose of:: To increase tolerance to activity/condition/position This patient was last seen in our office 10/21/19. Pertinent comments regarding their Physical therapy will appear below: Pt seen 5 visits of POC adn was 80% better. She did not show for her last scheduled visit. At this Point, it has been nearly two months and I will discontinue due to lack of attendance. At this point I will be discontinuing this patient from physical therapy. I would be happy to see this patient again in the future if found appropriate by the physician. Thank you! Mark Fowler, DPT, OCS, CSCS
== END 2019-10-21 19:00 | disposition home or self-care (01) ==
LOC: PT 09:30
PROVIDERS: Family Provider Family Medicine; Referring Provider Otolaryngology; Visit Provider Otolaryngology
DX: H81.12 Benign paroxysmal vertigo, left ear (principal)
CPT/HCPCS: 97110; 97162; 97530

== ENCOUNTER 2020-06-08 18:12 | Observation (INO) | payer MEDICARE, MEDICAID, SELFPAY ==
[2020-05-02 09:20] VITALS: BMI 42.0
[2020-06-08] VITALS (9 sets, daily range): BP systolic 132–165; BP diastolic 69–93; PULSE 53–62; RESP 14–23; TEMP 36.4–36.5; O2SAT 96–98; BMI 44.5; BMI 41.4; BMI 44.6
--- NOTE | 2020-06-08 18:22 | EKG12_ITS ---
Test Reason : AM Blood Pressure : / mmHG Vent. Rate : 080 BPM Atrial Rate : 320 BPM P-R Int : 000 ms QRS Dur : 100 ms QT Int : 342 ms P-R-T Axes : 087 011 098 degrees QTc Int : 394 ms Atrial flutter with variable A-V block with premature ventricular or aberrantly conducted complexes Nonspecific ST and T wave abnormality Abnormal ECG When compared with ECG of 08-JUN-2020 21:40, MANUAL COMPARISON REQUIRED, DATA IS UNCONFIRMED Confirmed by MANAN TIRADO, KELSY ([id number]), restaurant expeditor ENEIDA FREED ([id number]) on 06/14/2020 9:14:59 AM Referred By: PHILIP Confirmed By:AVI HINKLE MD
--- NOTE | 2020-06-08 18:23 | ED.VIS.GEN ---
History of Present Illness Chief Complaint: Chest Pain Onset: Today Narrative: 74-year-old female with past medical history of Parkinson's disease, coronary artery disease, hypertension presents with concern for chest pain. States that approximately 40 minutes ago she had 30 minutes of sharp retrosternal nonradiating chest pain. States that over the past year she has been getting more short of breath when she walks the dog. Denies any shortness of breath today. Denies any nausea, vomiting, diaphoresis. Patient is currently anticoagulated on Eliquis but is unsure why. Denies any history of DVT or pulmonary embolism. Past Medical History - Allergies and Home Meds Allergies/Adverse Reactions: Allergies NOVACAINE Adverse Reaction (Uncoded 06/08/20 18:23) ELEVATED BLOOD PRESSURE Past Medical History: - - Parkinsons, CAD, HTN Surgical History: coronary bypass surgery, - - CABG x 2. Smoking Status: Never smoker - Family History Maternal Family History: Family History (Last Reviewed 06/08/20 @ 20:[address] Eliezer Leon MD) Mother Heart disease Father Heart disease Family History: Reports: Heart Disease Paternal Family History: Family History (Last Reviewed 06/08/20 @ 20:[address] Eliezer Leon MD) Mother Heart disease Father Heart disease Family History: Reports: Heart Disease Review of Systems General: Denies: Chills, Fever, Sweats Eyes: Denies: Visual changes - bilaterally, Diplopia ENT: Denies: Rhinorrhea, Sore throat Cardiovascular: Reports: Chest pain. Denies: Palpitations Respiratory: Reports: Dyspnea on exertion. Denies: Dyspnea, Cough Gastrointestinal: Denies: Abdominal pain, Nausea, Vomiting, Diarrhea, Melena, Hematochezia Genitourinary: Denies: Dysuria, Hematuria, Frequency Musculoskeletal: Denies: Back pain, Extremity Pain Skin: Denies: Rash, Wounds Neurological: Denies: Headache, Weakness, Numbness Physical Exam Vital Signs/Narrative: Vital Signs Temp Pulse Resp BP Pulse Ox 06/08/20 18:13 97.5 F L 62 23 H 160/93 H 98 Inital Vital Signs reviewed: Yes General: Well nourished, Well developed, No Acute Distress Head: Normocephalic, Atraumatic Eyes: Perrl, EOMI ENT: Moist mucous membranes, No rhinorrhea Neck: Supple, Nontender Cardiovascular: Regular rate, Regular rhythm, No murmurs Respiratory: No distress, CTA bilaterally, Chest nontender Abdomen: Soft, Nontender, Nondistended, Normal bowel sounds Back: Nontender, Normal Inspection Extremities: Nontender, No edema Skin: Normal color, No rash Neurological: Alert, Oriented x3, Cranial nerves II-XII grossly intact, Normal Strength, Normal Sensation Psychological: Normal affect, Normal Mood Diagnostic/Tx/Re-eval Chest X-Ray - ED: 1 View, No Acute Disease Clinical Impression(s) from Imaging Studies Chest X-Ray 06/08/20 18:33 IMPRESSION: No major interval change when compared to the previous examination. Electronically Signed: Ney SalcedoDO at 18:52 EDT Tel [phone], Service support , Laboratory Data 06/08/20 06/08/20 06/08/20 18:30 18:30 18:30 WBC 6.6 RBC 4.16 L Hgb 12.8 Hct 39.0 MCV 93.8 MCH 30.8 MCHC 32.8 RDW Std Deviation 43.8 RDW Coeff of Jessica 12.7 Plt Count 192 MPV 10.1 Immature Gran % (Auto) 0.200 Neut % (Auto) 69.3 Lymph % (Auto) 18.8 L [place] % (Auto) 10.4 H Eos % (Auto) 0.8 Baso % (Auto) 0.5 Absolute Neuts (auto) 4.6 Absolute Lymphs (auto) 1.23 Nucleated RBC % 0 Sodium 139 Potassium 4.6 Chloride 107 Carbon Dioxide 30.0 Anion Gap 2 L BUN 22 H Creatinine 1.39 H Estim Creat Clear Calc 30.26 Est GFR (MDRD) Af Amer 48 L Est GFR (MDRD) Non-Af 40 L BUN/Creatinine Ratio 15.8 Glucose 101 Calcium 9.0 Troponin I < 0.015 B-Natriuretic Peptide 136.5 H - Rhythm Strip Rhythm Strip: Sinus Rhythm Rate: 63 Ectopy: None - EKG Initial EKG Interpretation: Sinus Rhythm - Normal sinus rhythm at 63 bpm. [place] interval 176 ms. QTC of [address] changes. - Medical Decision Making Appears well and nontoxic. EKG nonspecific. Troponin negative. Chest x-ray negative. Given the patient's high risk due to her coronary artery disease, age, story she will be admitted for chest pain observation. Patient given aspirin. Admitted in stable condition. Impression: 1. Chest pain 2. History of coronary artery disease ED Disposition - Plan for ED Patient: Disposition: Acute Care Hospital [facility]
--- NOTE | 2020-06-08 18:33 | RAD_ITS ---
STUDY: X-RAY CHEST REASON FOR EXAM: Female, 74 years old. Chest pain. TECHNIQUE: Single AP portable view of the chest. COMPARISON: 01/09/2019. FINDINGS: The lungs are clear and expanded. There is no demonstrated pleural abnormality. Sternal cerclage wires are present from a prior sternotomy. The heart is borderline enlarged. Normal mediastinum and ale. Normal visualized pulmonary arteries. Normal visualized aortic arch and descending thoracic aorta. The thoracic spine is obscured by the mediastinum. There is degenerative osteoarthritis of the bilateral shoulders. There is a retrocardiac hiatal hernia unchanged from prior study. Remainder of the abdomen is unremarkable. RAD/Chest 1 View (Portable) IMPRESSION: No major interval change when compared to the previous examination. Electronically Signed: Ney Salcedo DO at 18:52 EDT Tel [phone], Service support ,
[2020-06-08 18:40] LABS: Absolute Lymphocyte Count 1.23 X10^3/uL (0.83-4.51); Absolute Neutrophil Count 4.6 X10^3/uL (2.0-7.7); Basophil# 0.03 X10^3/uL; Basophil% 0.5 % (0-1); Eosinophil# 0.05 X10^3/uL; Eosinophils% 0.8 % (0-5); Hemoglobin 12.8 g/dL (12.0-15.0); Lymphocyte # 1.23 X10^3/ul (4.0); Lymphocyte % 18.8 % (19-41); Mean Corp Hgb Conc 32.8 g/dL (32-36); Mean Corpuscular Hgb 30.8 pg (27.0-32.0); Mean Corpuscular Volume 93.8 fL (81-99); Mean Platelet Vol. 10.1 fl (6.2-12.0); Monocyte# 0.68 X10^3/uL; Monocyte% 10.4 % (0-10); NRBC Flagged by Analyzer 0 % (0-5); Neutrophil # 4.56 X10^3/uL (2.7-7.7); Neutrophil % 69.3 % (47-70); Platelet Count 192 K/mm3 (150-450); RBC Distribution Width CV 12.7 % (11.6-14.6); RBC Distribution Width SD 43.8 fl (35.1-43.9); Red Blood Count 4.16 M/mm3 (4.2-5.4); White Blood Count 6.6 K/mm3 (4.4-11.0)
[2020-06-08 19:04] LABS: Anion Gap 2 (5-15); BUN 22 mg/dL (7-18); BUN/Creat Ratio 15.8 RATIO (10-20); Chloride 107 mmol/L (98-107); Creatinine, Serum 1.39 mg/dL (0.55-1.02); EST Glomerular Filtration Rate 40 mL/min (>60); Est Glom Filt Rate - Afr Amer 48 mL/min (>60); Estimated Creatinine Clearance 30.26 ml/min; Glucose 101 mg/dL (74-106); Potassium 4.6 mmol/L (3.5-5.1); Sodium Level 139 mmol/L (136-145)
[2020-06-08 19:47] LABS: BNP,B-Type NATRIURETIC PEPTIDE 136.5 pg/mL (0-100)
--- NOTE | 2020-06-08 20:10 | PCM.HP.STD ---
Problem List (1) Chest pain Status: Acute (2) Atherosclerosis of coronary artery of [place] heart without angina pectoris Status: Chronic Qualifiers: (3) H/O coronary artery bypass surgery Status: Chronic Comment: CABG x 2 PAN-LAD, SVG-RPDA 01/29/2008 (4) Paroxysmal atrial fibrillation Status: Chronic (5) Essential (primary) hypertension Status: Chronic (6) HLD (hyperlipidemia) Status: Chronic Qualifiers: History of Present Illness Date of Admission: 06/08/20 Chief Complaint: chest pain The patient is a 74 year old F with a significant history of CABG X2; HTN; paroxysmal A. fib who presents emergency department with excruciating constant sharp retrosternal which radiated to under her bilateral breast and to her middle back. Although she has a history of chronic back pain secondary to a scoliosis she thinks that the pain at her back has increased. Her chest pain came on suddenly and lasted for about 30 minutes. She denies any ameliorating or aggravating factors. She denies any nausea, vomiting, diaphoresis or shortness of breath. Past Medical History Past Medical History (Chronic Problems): Chronic Problems (Last Reviewed 06/08/20 @ 20:[address] Eliezer Leon MD) Atherosclerosis of coronary artery of [place] heart without angina pectoris (Chronic) H/O coronary artery bypass surgery (Chronic 01/29/08) CABG x 2 PAN-LAD, SVG-RPDA 01/29/2008 Paroxysmal atrial fibrillation (Chronic) Essential (primary) hypertension (Chronic) HLD (hyperlipidemia) (Chronic) Medical History: Medical History (Last Reviewed 06/08/20 @ 20:[address] 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 Allergies NOVACAINE Adverse Reaction (Uncoded 06/08/20 18:23) ELEVATED BLOOD PRESSURE Home Medications: Ambulatory Orders Medication Instructions Recorded Levothyroxine [Synthroid] 112 mcg PO DAILY 11/10/17 atorvastatin 20 mg tablet 20 mg PO QHS #90 tab 05/22/19 lisinopril 20 mg tablet 20 mg PO DAILY #90 tab 05/22/19 metoprolol tartrate 50 mg tablet 50 mg PO BID #60 tab 05/22/19 apixaban 5 mg tablet 5 mg PO BID #60 tab 07/30/19 Aspirin 81 mg PO DAILY 06/08/20 Budesonide [Budesonide EC] 9 mg PO DAILY 06/08/20 Omeprazole 40 mg PO DAILY 06/08/20 Sertraline HCl 50 mg PO DAILY 06/08/20 Surgical History: Surgical History (Last Reviewed 06/08/20 @ 20:[address] Eliezer Leon MD) H/O coronary artery bypass surgery (Chronic) Onset Date: 01/29/08 Z95.1 CABG x 2 PAN-LAD, SVG-RPDA 01/29/2008 History of left heart catheterization Onset Date: 01/12/19 Z98.890 Occluded SVG to RCA and Mid LAD, patent PAN and [place] RCA and LCX Surgical History: coronary bypass surgery, - - CABG x 2. 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 Eliezer Leon MD) Mother Heart disease Father Heart disease History Items: Heart Disease Paternal Family History: Family History (Last Reviewed 06/08/20 @ 20:[address] Eliezer Leon MD) Mother Heart disease Father Heart disease History Items: Heart Disease Review of Systems Constitutional: Denies: Chills, Fever, Weight Change HEENT: Denies: Head Aches, Sinus Congestion, Sinus Drainage Cardiovascular: Reports: Chest Pain. Denies: Palpitations Respiratory: Denies: Cough, Shortness of breath at rest, Sputum production Gastrointestinal: Denies: Abdominal Pain, Nausea, Vomiting Genitourinary: Denies: Dysuria Musculoskeletal: Reports: Back Pain. Denies: Joint Pain, Joint Tenderness Skin: Denies: Rash, Wounds Neurological: Denies: Numbness, Tingling, Focal weakness Psychiatric: Denies: Anxiety, Depression, Homicidal Ideations, Suicidal Ideations Hematologic/ Lymphatic: Denies: Easy Bruising, Easy Bleeding VTE Information - Inpt Only VTE Present on Admission: No VTE Mechan Device Prophylaxis: None VTE Pharm Prophylaxis ordered?: No Reason prophylaxis not ordered:: Treatment Not Indicated - Eliquis continued for history of A. fib. Patient Problems: Active and Suspected Problems (Last Reviewed 06/08/20 @ 20:[address] Eliezer Leon MD) Chest pain (Acute) - Physical Exam Vitals/I&O's: Vital Signs Temp Pulse Resp BP Pulse Ox 97.5 F L 55 L 15 132/69 H 96 06/08/20 18:13 06/08/20 19:17 06/08/20 19:17 06/08/20 19:17 06/08/20 19:17 Oxygen Delivery Method Room Air Weight: 114.1 kg Body Mass Index (BMI) 44.5 General: Alert, Oriented x3, Cooperative HEENT: Atraumatic, PERRLA, EOMI, Normocephalic Neck: Supple, No JVD, Negative Carotid Bruits Lungs: Clear to auscultation, Normal air movement, No rhonchi, No wheeze, No rales Cardiovascular: Regular rate, Normal S1, Normal S2, No murmurs Abdomen: Bowel Sounds Present, Soft, Non Tender Extremities: No edema, Capillary Refill Less than 3 Seconds Skin: - - Healed wounds on bilateral legs. Musculoskeletal: No Tenderness to Palpation of Joints or Extremities Neurological: Cranial nerves II-XII grossly intact Psych/Mental Status: Normal Affect, Appropriate Laboratory Results 06/08/20 18:30: WBC 6.6, RBC 4.16 L, Hgb 12.8, Hct 39.0, MCV 93.8, MCH 30.8, MCHC 32.8, RDW Std Deviation 43.8, RDW Coeff of Jessica 12.7, Plt Count 192, MPV 10.1, Immature Gran % (Auto) 0.200, Neut % (Auto) 69.3, Lymph % (Auto) 18.8 L, [place] % (Auto) 10.4 H, Eos % (Auto) 0.8, Baso % (Auto) 0.5, Absolute Neuts (auto) 4.6, Absolute Lymphs (auto) 1.23, Nucleated RBC % 0 06/08/20 18:30: Sodium 139, Potassium 4.6, Chloride 107, Carbon Dioxide 30.0, Anion Gap 2 L, BUN 22 H, Creatinine 1.39 H, Estim Creat Clear Calc 30.26, Est GFR (MDRD) Af Amer 48 L, Est GFR (MDRD) Non-Af 40 L, BUN/Creatinine Ratio 15.8, Glucose 101, Calcium 9.0, Troponin I < 0.015 06/08/20 18:30: B-Natriuretic Peptide 136.5 H Assessment/Plan All Active Problems (Last Reviewed 06/08/20 @ 20:[address] Eliezer Leon MD) Chest pain (Acute) Abnormal stress test (Resolved) Near syncope (Resolved) The patient is a 74 year old F with a significant history of CABG X2 (2007); HTN; paroxysmal A. fib who presents to the emergency department with excruciating constant sharp retrosternal which radiated to under her bilateral breast and to her middle back. Chest pain Stress test on 01/08/2019 showed stress-induced myocardial ischemia. Cardiac catheterization on 01/12/2019 showed mid LAD 80% stenosis; diagonal?ostial 70% stenosis and long area of disease; diagonal 2?proximal?diffusely diseased with 70%; distal RCA moderate luminal irregularities up to 50%. Medical therapy and aggressive blood pressure control was recommended. Place on a monitored bed at PCU Actual CXR image was independently visualized. No acute cardiopulmonary process was noted. Actual EKG tracing was independently visualized. EKG tracing showed probable left atrial dilatation and had to be consistent with a history of A. fib.. Aspirin 324 mg ordered at emergency department. ASA 81 mg p.o. daily continued SL NTG 0.4 mg prn as needed for chest pain ordered Morphine as needed for pain ordered We will check lipid panel. Statin: Continue home Lipitor. Anticoagulation: On Eliquis, continued. Check troponin was negative. Serial cardiac enzymes ordered Stat EKG as needed for chest pain Lisinopril and metoprolol continued. Discussed the case with on-call green prize packer. Recommendation is to order stress test. Chemical stress test in the AM if the cardiac enzymes are negative Paroxysmal A. fib Patient in sinus rhythm on presentation Apixaban continued. Hypertension Patient with uncontrolled blood pressure Lisinopril and metoprolol continued. Trend blood pressure and adjust blood pressure medications. GERD Omeprazole continued. Hypothyroidism Synthroid continued. Depression/anxiety Sertraline continued. DVT prophylaxis Not indicated since patient is on Eliquis for A. fib. Eliquis continued. OBSV E&M: 20106 Initial observation care L2
[2020-06-08] MEDS: Aspirin 81 MG TAB.CHEW 243 MG PO (20:49)
[2020-06-08] MEDS: Aspirin 81 MG TAB.CHEW PO (20:49)
--- NOTE | 2020-06-08 21:18 | EKG12_ITS ---
Test Reason : CP Blood Pressure : / mmHG Vent. Rate : 063 BPM Atrial Rate : 063 BPM P-R Int : 176 ms QRS Dur : 102 ms QT Int : 466 ms P-R-T Axes : 015 002 073 degrees QTc Int : 476 ms Normal sinus rhythm Possible Left atrial enlargement Borderline ECG Confirmed by JOSE TIRADO, MIKHAIL ([id number]), commissioning editor ENEIDA FREED ([id number]) on 06/13/2020 2:19:32 PM Referred By: CL Confirmed By:MIKHAIL GARCIA MD
[2020-06-08] MEDS: Atorvastatin Calcium 20 MG Tablet PO (22:49)
[2020-06-08] MEDS: APIXABAN 5 MG TABLET PO (22:49)
[2020-06-08] MEDS: Metoprolol Tartrate 50 MG Tablet PO (22:52)
[2020-06-09] VITALS (8 sets, daily range): BP systolic 109–127; BP diastolic 62–84; PULSE 51–86; RESP 16–18; TEMP 36.4–36.8; O2SAT 94–97
--- NOTE | 2020-06-09 05:55 | EKG12_ITS ---
Test Reason : CP ADMIT Blood Pressure : / mmHG Vent. Rate : 053 BPM Atrial Rate : 053 BPM P-R Int : 184 ms QRS Dur : 096 ms QT Int : 440 ms P-R-T Axes : 014 005 074 degrees QTc Int : 412 ms Sinus bradycardia Nonspecific T wave abnormality Abnormal ECG When compared with ECG of 08-JUN-2020 18:14, MANUAL COMPARISON REQUIRED, DATA IS UNCONFIRMED Confirmed by MANAN TIRADO, KELSY ([id number]), newspaper photo editor ENEIDA FREED ([id number]) on 06/14/2020 9:15:12 AM Referred By: PHILIP Confirmed By:AVI HINKLE MD
[2020-06-09] MEDS: Aspirin 81 MG TAB.CHEW PO (06:05)
[2020-06-09] MEDS: Lisinopril 20 MG Tablet PO (06:05)
[2020-06-09] MEDS: Levothyroxine 112 MCG Tablet PO (06:05)
[2020-06-09] MEDS: 0.9% Saline Lock 10 ML Syringe IV (06:08)
[2020-06-09 06:36] LABS: Cholesterol 178 mg/dL (200); High Density Lipoprotein 70 mg/dL; Triglycerides 93 mg/dL; Very Low Density Lipoprotein 19 mg/dL (5-40)
--- NOTE | 2020-06-09 07:54 | CON.PCM_ITS ---
Reason for Consult Date of Consultation: 06/09/20 Reason for Consultation: Chest pain History of Present Illness: The patient is a 74 year old F who presented to the emergency room with chest discomfort which she described as sharp radiating to both sides of her breastbone and back. [] She does have a history of coronary artery disease with bypass surgery x2 in 2007, hypertension hyperlipidemia and paroxysmal atrial fibrillation. She had presented in January with shortness of breath and underwent a cardiac catheterization. It demonstrated a left main coronary artery with mild calcification, left anterior descending artery with mid 80% stenosis, at first diagonal with 70% stenosis in the second diagonal with 70% diffuse stenosis. The circumflex artery had no significant disease the right coronary artery was diffusely diseased up to 50%. The PAN graft to the LAD was patent and the saphenous vein graft to the posterior descending artery was occluded with preserved ejection fraction. Medical therapy was recommended. Past Medical History Allergies/Adverse Reactions: Allergies NOVACAINE Adverse Reaction (Uncoded 06/08/20 18:23) ELEVATED BLOOD PRESSURE Home Medications: Ambulatory Orders Medication Instructions Recorded Levothyroxine [Synthroid] 112 mcg PO DAILY 07/19/17 atorvastatin 20 mg tablet 20 mg PO QHS #90 tab 05/22/19 lisinopril 20 mg tablet 20 mg PO DAILY #90 tab 05/22/19 metoprolol tartrate 50 mg tablet 50 mg PO BID #60 tab 05/22/19 apixaban 5 mg tablet 5 mg PO BID #60 tab 07/30/19 Aspirin 81 mg PO DAILY 06/08/20 Budesonide [Budesonide EC] 9 mg PO DAILY 06/08/20 Omeprazole 40 mg PO DAILY 06/08/20 Sertraline HCl 50 mg PO DAILY 06/08/20 Past Medical History (Chronic Problems): Chronic Problems (Last Reviewed 06/08/20 @ 20:[address] Eliezer Leon MD) Atherosclerosis of coronary artery of [place] heart without angina pectoris (Chronic) H/O coronary artery bypass surgery (Chronic 01/29/08) CABG x 2 PAN-LAD, SVG-RPDA 01/29/2008 Paroxysmal atrial fibrillation (Chronic) Essential (primary) hypertension (Chronic) HLD (hyperlipidemia) (Chronic) Surgical History: coronary bypass surgery, - - CABG x 2. 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 Eliezer Leon MD) Mother Heart disease Father Heart disease History Items: Heart Disease Paternal Family History: Family History (Last Reviewed 06/08/20 @ 20:[address] Eliezer Leon MD) Mother Heart disease Father Heart disease History Items: Heart Disease Smoking Status: Never smoker Alcohol: Rare Review of Systems - Review of Systems General: Denies: Fever, Night Sweats, Fatigue HEENT: Denies: Vision Change Cardiovascular: Reports: Chest Discomfort. Denies: Shortness of Breath, Orthopnea, PND, Peripheral Edema, Palpitations, Lightheadedness, Dizziness, Near Syncope, Syncope Respiratory: Denies: Cough, Sputum Production, Hemoptysis Gastrointestinal: Denies: Hematemesis, Hematochezia, Melena Genitourinary: Denies: Dysuria, Hematuria Skin: Denies: Rash Neurological: Denies: Dizziness Psychiatric: Denies: Anxiety Endocrine: Denies: Unexplained Weight Loss Subjectve: Pleasant lady in no distress Objective: Vital Signs Temp Pulse Resp BP Pulse Ox 97.8 F 86 16 109/65 96 06/09/20 06:05 06/09/20 06:58 06/09/20 06:05 06/09/20 06:05 06/09/20 06:05 Oxygen Delivery Method Room Air Weight: 249 lb 1.957 oz Body Mass Index (BMI) 41.4 Intake and Output for Last 24 Hours 06/07/20 06/08/20 06/09/20 23:59 23:59 23:59 Intake Total 120 / 120 0 / 0 Balance 120 / 120 0 / 0 General: Awake, Alert, Oriented x 3 HEENT: PERRL, EOMI, Sclera Non Icteric Neck: Supple, Good ROM, No Lymph Node Enlargement Lungs: Clear to auscultation Cardiovascular: Regular Rhythm, Normal S1, Normal S2, No Murmurs, No Rubs, No Gallops Vascular: No Carotid Bruits, Normal Femoral Pulses, Normal Radial Pulses, Normal Dorsalis Pedal Pulse, Normal Posterior Tibial Pulses Abdomen: Bowel Sounds Present, Soft, Non Tender, No HSM, No Organomegaly Extremities: No Cyanosis, No Clubbing, No edema Neurological: No Focal Motor or Sensory Deficit 06/08/20 18:30: WBC 6.6, RBC 4.16 L, Hgb 12.8, Hct 39.0, MCV 93.8, MCH 30.8, MCHC 32.8, Plt Count 192, MPV 10.1, Immature Gran % (Auto) 0.200, Neut % (Auto) 69.3, Lymph % (Auto) 18.8 L, [place] % (Auto) 10.4 H, Eos % (Auto) 0.8, Baso % (Auto) 0.5, Absolute Neuts (auto) 4.6, Nucleated RBC % 0 06/08/20 18:30: Sodium 139, Potassium 4.6, Chloride 107, Carbon Dioxide 30.0, Anion Gap 2 L, BUN 22 H, Creatinine 1.39 H, Est GFR (MDRD) Af Amer 48 L, Est GFR (MDRD) Non-Af 40 L, BUN/Creatinine Ratio 15.8, Glucose 101, Calcium 9.0, Troponin I < 0.015 06/08/20 18:30: B-Natriuretic Peptide 136.5 H 06/08/20 21:50: Troponin I < 0.015 06/09/20 00:10: Troponin I < 0.015 06/09/20 05:28: Triglycerides 93, Cholesterol 178, LDL Cholesterol 89, VLDL Cholesterol 19, HDL Cholesterol 70 Rhythm: EKG: ECHO: Stress Test: Cardiac Cath: PCI: CT Surgery: Holter monitor: EPS: PPM: CXR: Chest CT Scan: Assessment/Plan 1. Chest pain-atypical * Patient presents with atypical chest pain. Her EKG and cardiac enzymes are thus far negative. My recommendation will be for us to obtain a pharmacologic myocardial perfusion stress test and depending on the results further recommendations will be made. The atypical nature as well as her recent cardiac catheterization makes me think that if the stress test is normal I would not pursue any further cardiac work-up. * 2. Paroxysmal atrial fibrillation * She appears to be maintaining sinus rhythm at this time. I would not recommend that we make any other changes. * 3. Status post coronary artery bypass surgery * She underwent cardiac catheterization not too long ago. I would recommend that we continue following her and obtain a pharmacologic myocardial perfusion stress test. Depending on the findings further recommendations will be made. * * Thank you for allowing me to participate in the care of your patient. Please don't hesitate to call if any issues arise.
--- NOTE | 2020-06-09 10:02 | CASEMGMT ---
Patient has a Healthcare Power of Chemistry Technologist, but not a Healthcare Living Will. Her Healthcare POA is not on file at [facility] and she is aware. Her Healthcare POA is her daughter, Candelario Jade. Alla GASPAR MSW
[2020-06-09] MEDS: Pantoprazole Sodium 40 MG Tablet PO (11:32)
[2020-06-09] MEDS: APIXABAN 5 MG TABLET PO (11:32)
[2020-06-09] MEDS: Sertraline 50 MG Tablet PO (11:32)
[2020-06-09] MEDS: Budesonide 3 MG CAPSULE.EC 9 MG PO (11:33)
[2020-06-09] MEDS: Metoprolol Tartrate 50 MG Tablet PO (11:33)
--- NOTE | 2020-06-09 11:49 | STRESSREP ---
Stress Test Report Pharmacologic myocardial perfusion stress test. 74-year-old lady with a history of atrial fibrillation and chest pain. Stress protocol: Resting EKG demonstrates atrial fibrillation with a rate of 90 bpm normal intervals are noted resting blood pressure is 138/88 mmHg. 0.4 mg of regadenoson was infused per usual protocol followed by rapid intravenous saline flush injection continuous EKG monitoring was performed. The maximum heart rate attained was 136 bpm which was 91% of max impacted heart rate the maximum workload was 1 metabolic equivalent. At rest there were no ST or T wave changes noted to suggest abnormal flow reserve at peak infusion nonspecific ST-T wave changes were noted with no meet the criteria for ischemia. No clinical angina was noted. Myocardial perfusion protocol. 13.5 mCi of technetium 99m sestamibi was injected at rest. 0.4 mg of regadenoson was infused per usual protocol. At peak infusion 44.0 mCi of technetium 99m sestamibi was injected stress images were obtained stress and rest images were reconstructed and compared in the short axis vertical long horizontal long axis. No gated images were obtained. Perfusion SPECT analysis: Review of the images demonstrate normal uptake of tracer noted in all areas of the myocardium the resting images similar demonstrate normal uptake of tracer noted in all areas of the myocardium. No reversibility is noted to suggest ischemia. Conclusion: Normal pharmacologic myocardial perfusion stress test. Atrial fibrillation with controlled ventricular response rate noted.
--- NOTE | 2020-06-09 12:04 | DCINST_ITS ---
- Discharge Diagnoses Current Active Problems: Current Active and Chronic Problems (Last Reviewed 06/08/20 @ 20:[address] Eliezer Leon MD) Chest pain (Acute) You will use the following diet at home:: Cardiac Your food should be the consistency of: Regular Discharge Activity: Return to Normal Activity Weight Bearing Status: Weight bearing as tolerated Call your doctor if you observe: Fever of 101 or Higher, Shortness of breath, Dizziness, Fainting spells, Chest pain, Increased palpitations (irregular heartbeat), Uncontrolled pain Allergies/Adverse Reactions: Allergies NOVACAINE Adverse Reaction (Uncoded 06/08/20 18:23) ELEVATED BLOOD PRESSURE Medications to take at Discharge Levothyroxine [Synthroid] 112 mcg PO DAILY 07/19/17 atorvastatin 20 mg tablet 20 mg PO QHS #90 tab 05/22/19 lisinopril 20 mg tablet 20 mg PO DAILY #90 tab 05/22/19 metoprolol tartrate 50 mg tablet 50 mg PO BID #60 tab 05/22/19 apixaban 5 mg tablet 5 mg PO BID #60 tab 07/30/19 Aspirin 81 mg PO DAILY 06/08/20 Budesonide [Budesonide EC] 9 mg PO DAILY 06/08/20 Omeprazole 40 mg PO DAILY 06/08/20 Sertraline HCl 50 mg PO DAILY 06/08/20 Primary Care Physician: Bal Benz [Primary Care Provider] - Please follow up with your Primary Care Physician in: 1-2 weeks. Test Results: Test results from this visit will be discussed in further detail at your follow- up appointment, if applicable. Please Follow Up With: Jeffery Funk MD When: 4-6 weeks.
--- NOTE | 2020-06-09 12:05 | DS.PCM_ITS ---
Discharge Date and Diagnosis - Problem List Patient Problems: Active and Suspected Problems (Last Reviewed 06/08/20 @ 20:[address] Eliezer Leon MD) Chest pain (Acute) Date of Admission: 06/08/20 Date of Discharge: 06/09/20 - Primary Discharge Diagnosis Acute Problems: Active Problems (Last Reviewed 06/08/20 @ 20:[address] Eliezer Leon MD) Atypical chest pain, ACS ruled out. - Secondary Discharge Diagnosis Chronic Problems: Chronic Problems (Last Reviewed 06/08/20 @ 20:[address] 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 Electronically Signed: Ney Salcedo DO at 18:52 EDT Tel [phone], Service support , Dr. Funk, cardiology. Operations: None Procedures: EKG, Stress test Summary of Care Provided: Patient seen and examined on the day of discharge and appeared to be stable to be discharged home. Just before doing the stress test, patient developed what it looks like pseudoseizure. Patient mentioned that she has this pseudoseizure for long time whenever going into distress or anxiety. Stress test was completed uneventfully. Her vital signs were stable. The patient is a 74 year old F presented to the emergency room because of chest pain and she was admitted for evaluation. Her pain was atypical. Initial EKG revealed atrial flutter, rate is controlled, no acute segment changes. Troponin was negative x3. Chest x-ray showed no acute findings. Her routine blood work was unremarkable apart from creatinine of 1.39 which is chronic. Her vital signs were stable. Cardiology consulted and recommended nuclear stress test. Nuclear stress test was performed and that was normal without evidence of stress-induced myocardial ischemia. ACS ruled out. Her chest pain probably due to musculoskeletal pain. Patient had cardiac catheterization on Jan, 2019 that revealed occluded SVG to RCA and mid LAD, patent PAN and negative RCA and left circumflex. Cardio recommended to continue medical treatment. Patient discharged home in a stable condition, discharged on her previous home medications without any changes including aspirin, Eliquis, lisinopril, metoprolol, recommended to follow-up with her PCP in 1 week regarding her chronic medical problems in addition to the pseudoseizure and also recommended follow-up with cardiology in 4 to 6 weeks. Patient Problems: Active and Suspected Problems (Last Reviewed 06/08/20 @ 20:[address] Eliezer Leon MD) Chest pain (Acute) - Physical Exam Vitals/I&O's: Vital Signs Temp Pulse Resp BP Pulse Ox 98.2 F 60 18 112/62 97 06/09/20 11:38 06/09/20 11:38 06/09/20 11:38 06/09/20 11:38 06/09/20 11:38 Oxygen Delivery Method Room Air Weight: 249 lb 1.957 oz Body Mass Index (BMI) 41.4 Intake and Output for Last 24 Hours 06/07/20 06/08/20 06/09/20 23:59 23:59 23:59 Intake Total 120 / 120 320 / 320 Balance 120 / 120 320 / 320 General: Alert, Oriented x3, Cooperative, No apparent distress HEENT: Atraumatic, PERRLA, EOMI, Normocephalic Oral: Moist Mucosa, No Gingival or Mucosal Lesions/ Ulcerations Neck: Supple, No JVD, Negative Carotid Bruits, Trachea Midline, Thyroid Normal Size and Texture Lungs: Clear to auscultation, Normal air movement, No rhonchi, No wheeze, No rales Cardiovascular: Normal S1, Normal S2, PMI Normal, Irregular Rate Abdomen: Bowel Sounds Present, Soft, Non Tender, Non-Distended, No Hepato- splenomegaly, Obese Extremities: No clubbing, No cyanosis, No edema Skin: No rashes, No breakdown Lymphatic: No Cervical, Supraclavicular, or Inguinal Adenopathy Neurological: Cranial nerves II-XII grossly intact, Neuro grossly intact Psych/Mental Status: Normal Affect, Appropriate Laboratory Results 06/08/20 18:30: WBC 6.6, RBC 4.16 L, Hgb 12.8, Hct 39.0, MCV 93.8, MCH 30.8, MCHC 32.8, RDW Std Deviation 43.8, RDW Coeff of Jessica 12.7, Plt Count 192, MPV 10.1, Immature Gran % (Auto) 0.200, Neut % (Auto) 69.3, Lymph % (Auto) 18.8 L, [place] % (Auto) 10.4 H, Eos % (Auto) 0.8, Baso % (Auto) 0.5, Absolute Neuts (auto) 4.6, Absolute Lymphs (auto) 1.23, Nucleated RBC % 0 06/08/20 18:30: Sodium 139, Potassium 4.6, Chloride 107, Carbon Dioxide 30.0, Anion Gap 2 L, BUN 22 H, Creatinine 1.39 H, Estim Creat Clear Calc 30.26, Est GFR (MDRD) Af Amer 48 L, Est GFR (MDRD) Non-Af 40 L, BUN/Creatinine Ratio 15.8, Glucose 101, Calcium 9.0, Troponin I < 0.015 06/08/20 18:30: B-Natriuretic Peptide 136.5 H 06/08/20 21:50: Troponin I < 0.015 06/09/20 00:10: Troponin I < 0.015 06/09/20 05:28: Triglycerides 93, Cholesterol 178, LDL Cholesterol 89, VLDL Cholesterol 19, HDL Cholesterol 70 Current Medications Acetaminophen (Tylenol) 650 mg PO Q6H PRN PRN PRN Reason: Pain Score 1-10/Temp > 100.7 F Apixaban (Eliquis) 5 mg PO BID [facility] Last Admin: 06/09/20 11:32 Dose: 5 mg Documented by: Aspirin (Aspirin, Baby) 81 mg PO DAILYCM [facility] Last Admin: 06/09/20 06:05 Dose: 81 mg Documented by: Atorvastatin Calcium (Lipitor) 20 mg PO QHS [facility] Last Admin: 06/08/20 22:49 Dose: 20 mg Documented by: Budesonide (Budesonide Ec) 9 mg PO DAILY [facility] Last Admin: 06/09/20 11:33 Dose: 9 mg Documented by: Sodium Chloride () 250 mls @ 15 mls/hr IV .[id number] PRN PRN Reason: Saline Flush Sodium Chloride () 250 mls @ 15 mls/hr IV .[id number] PRN PRN Reason: Additional IVPB Infusion Labetalol HCl (Trandate) 10 mg IV Q4H PRN PRN PRN Reason: SBP > 160; DBP > 120 Levothyroxine Sodium (Synthroid) 112 mcg PO DAILY@0600 [facility] Last Admin: 06/09/20 06:05 Dose: 112 mcg Documented by: Lisinopril (Zestril) 20 mg PO DAILY [facility] Last Admin: 06/09/20 06:05 Dose: 20 mg Documented by: Melatonin (Melatonin) 3 mg PO QHS PRN PRN PRN Reason: INSOMNIA Metoprolol Tartrate (Lopressor (Beta Dory)) 50 mg PO BID [facility] Last Admin: 06/09/20 11:33 Dose: 50 mg Documented by: Morphine Sulfate () 2 mg IV Q3H PRN PRN PRN Reason: Pain Score 6-10/10 Nitroglycerin (Nitrostat) 0.4 mg SUBLINGUAL Q5M PRN PRN Reason: CARDIAC/CHEST PAIN Ondansetron HCl (Zofran) 4 mg IV Q8H PRN PRN PRN Reason: NAUSEA/VOMITING Pantoprazole Sodium (Protonix) 40 mg PO DAILY [facility] Last Admin: 06/09/20 11:32 Dose: 40 mg Documented by: Sertraline HCl (Zoloft) 50 mg PO DAILY [facility] Last Admin: 06/09/20 11:32 Dose: 50 mg Documented by: Sodium Chloride () 10 - 40 ml IV UD PRN PRN Reason: SALINE FLUSH Last Admin: 06/09/20 06:08 Dose: 10 ml Documented by: Discharge Activity: Return to Normal Activity Weight Bearing Status: Weight bearing as tolerated Call your doctor if you observe: Fever of 101 or Higher, Shortness of breath, Dizziness, Fainting spells, Chest pain, Increased palpitations (irregular heartbeat), Uncontrolled pain Home Medications: Medications to take at Discharge Levothyroxine [Synthroid] 112 mcg PO DAILY 07/19/17 atorvastatin 20 mg tablet 20 mg PO QHS #90 tab 05/22/19 lisinopril 20 mg tablet 20 mg PO DAILY #90 tab 05/22/19 metoprolol tartrate 50 mg tablet 50 mg PO BID #60 tab 05/22/19 apixaban 5 mg tablet 5 mg PO BID #60 tab 07/30/19 Aspirin 81 mg PO DAILY 06/08/20 Budesonide [Budesonide EC] 9 mg PO DAILY 06/08/20 Omeprazole 40 mg PO DAILY 06/08/20 Sertraline HCl 50 mg PO DAILY 06/08/20 Primary Care Physician: Bal Benz [Primary Care Provider] - Please follow up with your Primary Care Physician in: 1-2 weeks. Please Follow Up With: Jeffery Funk MD When: 4-6 weeks. Disposition: Home Minutes spent on discharge:: 27 Patient Condition:: Stable Medical Necessity - Tobacco Use Smoking Status: Never smoker Meaningful Use Info Meaningful Use Diagnoses (Choose all that apply): None applicable OBSV E&M: 18221 Observation care discharge
--- NOTE | 2020-06-09 12:49 | PHA.DC.MR ---
Pharmacy Service has performed discharge medication reconciliation for this patient. The patient's discharge medication list was reviewed for discrepancies and discrepancies were resolved. Home Medications Levothyroxine [Synthroid] 112 mcg PO DAILY 07/19/17 apixaban 5 mg tablet 5 mg PO BID #60 tab 07/30/19 Aspirin 81 mg PO DAILY 06/08/20 Budesonide [Budesonide EC] 9 mg PO DAILY 06/08/20 Omeprazole 40 mg PO DAILY 06/08/20 Sertraline HCl 50 mg PO DAILY 06/08/20 Lisinopril 20 mg PO DAILY 06/09/20 Metoprolol Tartrate [Lopressor (beta italo)] 50 mg PO BID 06/09/20 atorvastatin 20 mg tablet 20 mg PO QHS #90 tab 06/09/20
--- NOTE | 2020-06-09 13:06 | CHAPLAIN ---
Type of Pastoral Visit _x__ Initial Visit ___ Follow-up Visit ___ On-call Visit ___ General Patient Visit ___ Spiritual Assessment ___ Family Conference ___ Bereavement ___ Rapid Response ___ Code Blue ___ Other (describe below) Pastoral Care Referral From ___ Patient ___ Family _x__ Nurse ___ Physician ___ Underwriting Analyst ___ Redevelopment Manager ___ Other (describe below) Sacrament/Intervention _x__ Active listening ___ Anointing ___ Taoist ___ Bereavement ___ Communion ___ Chela exploration ___ ___ Life review ___ Prayer ___ Reconciliation ___ Sacrament of Sick _x__ Supportive presence ___ Wedding ___ Other (describe below) Pastoral Comments
--- NOTE | 2020-06-09 13:22 | NURSING ---
called daughters per patient request let her know of dc
== END 2020-06-09 12:04 | disposition home or self-care (01) ==
LOC: ED 19:14 → PCU 20:37
PROVIDERS: Admitting Provider Hospitalist; Emergency Provider Emergency Medicine; Visit Provider Hospitalist
DX: R07.89 Other chest pain (principal); I10 Essential (primary) hypertension; G20 Parkinson's disease; I25.10 Atherosclerotic heart disease of native coronary artery without angina pectoris; Z79.899 Other long term (current) drug therapy; Z79.82 Long term (current) use of aspirin; Z79.01 Long term (current) use of anticoagulants; Z95.1 Presence of aortocoronary bypass graft; I48.0 Paroxysmal atrial fibrillation; E78.5 Hyperlipidemia, unspecified; K21.9 Gastro-esophageal reflux disease without esophagitis; F02.80 Dementia in other diseases classified elsewhere, unspecified severity, without behavioral disturbance, psychotic disturbance, mood disturbance, and anxiety; G30.9 Alzheimer's disease, unspecified; E03.9 Hypothyroidism, unspecified; F41.9 Anxiety disorder, unspecified; E66.9 Obesity, unspecified; Z68.41 Body mass index [BMI] 40.0-44.9, adult
CPT/HCPCS: 36415; 71045; 78452; 80048; 80061; 83880; 84484; 85025; 93005; 93017; 99218; 99283; A9500; A4216; G0378; J2785

== ENCOUNTER → 2020-09-23 11:31 | Outpatient (CLI) | payer MEDICARE, MEDICAID, SELFPAY ==
[2020-09-21 16:39] VITALS: BMI 42.0
[2020-09-23 11:50] LABS: Absolute Lymphocyte Count 1.26 X10^3/uL (0.83-4.51); Absolute Neutrophil Count 5.8 X10^3/uL (2.0-7.7); Basophil# 0.03 X10^3/uL; Basophil% 0.4 % (0-1); Eosinophil# 0.09 X10^3/uL; Eosinophils% 1.1 % (0-5); Hematocrit 42.4 % (37-47); Hemoglobin 13.5 g/dL (12.0-15.0); Lymphocyte # 1.26 X10^3/ul (4.0); Mean Corp Hgb Conc 31.8 g/dL (32-36); Mean Corpuscular Hgb 29.2 pg (27.0-32.0); Mean Corpuscular Volume 91.6 fL (81-99); Mean Platelet Vol. 10.4 fl (6.2-12.0); Monocyte# 0.64 X10^3/uL; Monocyte% 8.1 % (0-10); NRBC Flagged by Analyzer 0 % (0-5); Neutrophil # 5.83 X10^3/uL (2.7-7.7); Neutrophil % 74.1 % (47-70); Platelet Count 240 K/mm3 (150-450); RBC Distribution Width CV 12.7 % (11.6-14.6); Red Blood Count 4.63 M/mm3 (4.2-5.4); White Blood Count 7.9 K/mm3 (4.4-11.0)
[2020-09-23 12:09] LABS: BNP,B-Type NATRIURETIC PEPTIDE 75.8 pg/mL (0-100)
[2020-09-23 12:13] LABS: ALB/GLOB Ratio 0.9 RATIO (0.9-2.4); AST(SGOT) 22 U/L (15-37); Alanine Aminotransfer ALT/SGPT 32 U/L (13-56); Albumin, Serum 3.3 g/dL (3.2-5.0); Alkaline Phosphatase 122 U/L (45-117); Anion Gap 4 (5-15); BUN 18 mg/dL (7-18); BUN/Creat Ratio 10.7 RATIO (10-20); Calcium,Total 8.9 mg/dL (8.5-10.1); Chloride 103 mmol/L (98-107); Creatinine, Serum 1.68 mg/dL (0.55-1.02); EST Glomerular Filtration Rate 32 mL/min (>60); Est Glom Filt Rate - Afr Amer 38 mL/min (>60); Globulin 3.6 g/dL (2.2-4.2); Glucose 124 mg/dL (74-106); Magnesium 2.1 mg/dL (1.6-2.6); Potassium 3.8 mmol/L (3.5-5.1); Protein, Total 6.9 g/dL (6.4-8.2); Sodium Level 138 mmol/L (136-145)
== END ==
PROVIDERS: Visit Provider Nurse Practitioner Family
DX: I25.10 Atherosclerotic heart disease of native coronary artery without angina pectoris (principal); Z95.1 Presence of aortocoronary bypass graft; I48.0 Paroxysmal atrial fibrillation; I10 Essential (primary) hypertension; E78.5 Hyperlipidemia, unspecified; R06.00 Dyspnea, unspecified; R07.9 Chest pain, unspecified
CPT/HCPCS: 36415; 80053; 83735; 83880; 85025

== ENCOUNTER 2020-11-30 12:03 | Emergency (ER) | payer MEDICARE, MEDICAID, SELFPAY ==
[2020-11-30 12:04] VITALS: BP 121/53; PULSE 73; RESP 16; TEMP 36.2; O2SAT 96; BMI 39.9
--- NOTE | 2020-11-30 12:18 | EKG12_ITS ---
Test Reason : WEAKNESS Blood Pressure : / mmHG Vent. Rate : 092 BPM Atrial Rate : 326 BPM P-R Int : 000 ms QRS Dur : 090 ms QT Int : 376 ms P-R-T Axes : 000 010 099 degrees QTc Int : 464 ms Atrial fibrillation Nonspecific T wave abnormality Abnormal ECG Confirmed by MANAN TIRADO, KELSY ([id number]), assignment desk editor ENEIDA FREED ([id number]) on 12/02/2020 9:27:53 AM Referred By: JENNYFER Confirmed By:AVI HINKLE MD
--- NOTE | 2020-11-30 12:18 | CT_ITS ---
STUDY: CT BRAIN WITHOUT CONTRAST REASON FOR EXAM: Female, 75 years old. Headache -- Eliquis RADIATION DOSAGE (If Supplied By Facility): CTDIvol = ( 44.99 ) mGy, DLP = ( 745.49 ) mGycm TECHNIQUE: Transaxial CT imaging of the brain was performed without administration of intravenous contrast material. Individualized dose optimization techniques were used for this CT. COMPARISON: Comparison is made with prior study dated 11/12/2017. FINDINGS: Normal soft tissue structures. Normal calvarium. There is mild cerebral atrophy with widening of the extra-axial spaces and ventricular dilatation. There are areas of decreased attenuation within the white matter tracts of the supratentorial brain, consistent with microvascular disease changes. Normal basal ganglia and thalami. Normal brainstem. There is mild cerebellar atrophy. There is no intracranial hemorrhage. There are no findings of an acute ischemic infarction. Normal visualized paranasal sinuses. CT/Brain/Head without Contrast IMPRESSION: Chronic involutional changes of the brain. Electronically Signed: Geoffrey Lezama MD at 13:14 EDT , Service support ,
--- NOTE | 2020-11-30 12:19 | ED.DCSUM_ITS ---
- ER Visit Summary Date of Service: 11/30/20 Chief Complaint: Weakness History of Present Illness: The patient is a [address] Benz and Dr. Funk. She reports she has weakness has been gradually worsening over the past year. States that she has chest pain and is short of breath with walking to the bathroom or walking the dog. She is unable to further describe the chest pain. To get out of 10 at worst and 0 out of 10 currently. She reports that she is short of breath and nauseated with this. She vomited with this this morning. She denies any diaphoresis. Patient reports that she has had 2 episodes of diarrhea today. No blood in her stools or black tarry stools. She denies any abdominal pain. She does complain of generalized weakness. Physical Examination: Vitals: Stable. Afebrile. General: Well-nourished and well-developed. Head: Normocephalic atraumatic. Neck: Supple, no lymphadenopathy. No JVD. Nontender. Cardiovascular: Regular rate and rhythm. 2 out of 6 systolic murmur. Respiratory: No respiratory distress. Clear to auscultation bilaterally. Abdominal: Soft, nontender, nondistended, normal bowel sounds. No guarding, rebound, or peritoneal signs. Back: Nontender. Extremities: Nontender, 2+ pitting edema lower extremities bilaterally. Skin: Normal color, no rash. 3 superficial ulcers to the anterior surface of her left leg that is approximately 1 cm in diameter. There is no induration, fluctuance, or surrounding erythema to suggest infection. Neurologic: Alert and oriented ?3. Cranial nerves II through XII are intact. Normal strength and sensation. Psych: Normal affect. Test Results: KG is A. fib at 92. She has a minimal T wave inversions laterally. This is unchanged from May 2020. Troponin is negative. UA is negative. LFTs show an albumin of 3.1. Chem-7 shows a glucose 115, BUN 24, creatinine 1.64. CBC shows stable neutrophils 71, sets 15, monocytes of 11. Clinical Impression(s) from Imaging Studies Brain CT 11/30/20 12:18 IMPRESSION: Chronic involutional changes of the brain. Electronically Signed: Geoffrey Lezama MD at 13:14 EDT , Service support , Chest X-Ray 11/30/20 12:40 IMPRESSION: Status post CABG. No acute abnormality is seen. Electronically Signed: Geoffrey Lezama MD at 12:50 EDT , Service support , Emergency Department Course and Treatment: Patient feels well and is resting comfortably. I reviewed her history and she actually had a stress test in June 2020 that was normal. Treatment Plan: Patient would like to go home. At this time I do not have an explanation for her chest pain and dyspnea on exertion. She was discussed with Dr. Funk and instructed to follow-up with soon as possible. Return to the emergency department for any worsening symptoms. Disposition: To home in improved and stable condition. Impression: 1. Weakness, uncertain cause. 2. Dyspnea on exertion. This note was generated with [facility] software. It may contain incorrect words, spelling, and punctuation that were not noted in review of the chart prior to signing ED Disposition - Plan for ED Patient: Instructions: ED Weakness (Uncertain Cause) Referrals: Bal Benz [Primary Care Provider] - 2 Days Jeffery Funk MD [STAFF PHYSICIAN] - As soon as possible
[2020-11-30 12:40] LABS: Absolute Lymphocyte Count 1.04 X10^3/uL (0.83-4.51); Absolute Neutrophil Count 4.9 X10^3/uL (2.0-7.7); Basophil# 0.05 X10^3/uL; Basophil% 0.7 % (0-1); Eosinophil# 0.17 X10^3/uL; Eosinophils% 2.5 % (0-5); Hematocrit 38.5 % (37-47); Hemoglobin 12.4 g/dL (12.0-15.0); Lymphocyte # 1.04 X10^3/ul (4.0); Lymphocyte % 15.2 % (19-41); Mean Corp Hgb Conc 32.2 g/dL (32-36); Mean Corpuscular Hgb 28.5 pg (27.0-32.0); Mean Corpuscular Volume 88.5 fL (81-99); Monocyte# 0.72 X10^3/uL; Monocyte% 10.5 % (0-10); NRBC Flagged by Analyzer 0 % (0-5); Neutrophil # 4.85 X10^3/uL (2.7-7.7); Neutrophil % 70.7 % (47-70); Platelet Count 206 K/mm3 (150-450); RBC Distribution Width CV 13.1 % (11.6-14.6); RBC Distribution Width SD 42.3 fl (35.1-43.9); Red Blood Count 4.35 M/mm3 (4.2-5.4); White Blood Count 6.9 K/mm3 (4.4-11.0)
--- NOTE | 2020-11-30 12:40 | RAD_ITS ---
STUDY: X-RAY CHEST REASON FOR EXAM: Female, 75 years old. SOB and weakness. TECHNIQUE: Single AP portable view of the chest. COMPARISON: Comparison is made with prior study dated 06/08/2020. FINDINGS: EKG electrodes are seen. The lungs are clear and expanded. There is no demonstrated pleural abnormality. Sternal cerclage wires and vascular clips are present from a prior sternotomy and coronary artery bypass graft procedure (CABG). Normal mediastinum and ale. Normal visualized pulmonary arteries. There is atherosclerotic calcification of the aortic arch with tortuosity. There are diffuse degenerative changes of the visualized thoracic spine. Normal visualized ribs, clavicles, and shoulders. There is no demonstrated abnormality of the visualized soft tissue structures of the upper abdomen. RAD/Chest 1 View (Portable) IMPRESSION: Status post CABG. No acute abnormality is seen. Electronically Signed: Geoffrey Lezama MD at 12:50 EDT , Service support ,
[2020-11-30 12:57] LABS: ALB/GLOB Ratio 0.9 RATIO (0.9-2.4); AST(SGOT) 19 U/L (15-37); Alanine Aminotransfer ALT/SGPT 30 U/L (13-56); Albumin, Serum 3.1 g/dL (3.2-5.0); Alkaline Phosphatase 103 U/L (45-117); Anion Gap 7 (5-15); BUN 24 mg/dL (7-18); BUN/Creat Ratio 14.6 RATIO (10-20); Calcium,Total 9.1 mg/dL (8.5-10.1); Chloride 103 mmol/L (98-107); Creatinine, Serum 1.64 mg/dL (0.55-1.02); EST Glomerular Filtration Rate 33 mL/min (>60); Est Glom Filt Rate - Afr Amer 39 mL/min (>60); Estimated Creatinine Clearance 27.49 ml/min; Globulin 3.4 g/dL (2.2-4.2); Glucose 115 mg/dL (74-106); Potassium 4.1 mmol/L (3.5-5.1); Protein, Total 6.5 g/dL (6.4-8.2); Sodium Level 140 mmol/L (136-145)
[2020-11-30 13:44] LABS: Bacteria 0 SEEN /hpf (None Seen); Mucous, Urine 0 SEEN /hpf (<or=2+); Red Blood Cells-Urine 0 SEEN /hpf (0-5)
[2020-11-30 13:45] LABS: Color, Urine Yellow (Yellow); Glucose, Dipstick Normal (Normal); Ketone-Dipstick Negative (Negative); Leukocyte Esterase-Dipstick 100 /ul (Negative); Nitrite-Dipstick Negative (Negative); Occult Blood-Urine Negative /ul (Negative); Protein-Dipstick Negative (Negative); Urine Bilirubin Dipstick Negative (Negative); Urine Clarity Clear (Clear); Urine Urobilinogen Normal (Normal)
[2020-11-30 13:51] LABS: Squamous Epithelial Cells - UA 0-5 SEEN /hpf (5-10); White Blood Cells 0-5 SEEN /hpf (0-5)
[2020-11-30 13:55] VITALS: BP 107/61; PULSE 98; RESP 18; O2SAT 97
[2020-11-30 15:49] VITALS: BP 123/87; PULSE 97; RESP 18; O2SAT 95
== END 2020-11-30 15:59 | disposition home or self-care (01) ==
PROVIDERS: Emergency Provider Emergency Medicine
DX: R53.1 Weakness (principal); R06.09 Other forms of dyspnea; I48.91 Unspecified atrial fibrillation; Z95.1 Presence of aortocoronary bypass graft; R01.1 Cardiac murmur, unspecified; R06.02 Shortness of breath; R11.2 Nausea with vomiting, unspecified
CPT/HCPCS: 70450; 71045; 80053; 81001; 84484; 85025; 87426; 93005; 99284

== ENCOUNTER → 2021-01-12 09:01 | Outpatient (CLI) | payer MEDICARE, MEDICAID, SELFPAY ==
--- NOTE | 2021-01-12 09:20 | RAD_ITS ---
STUDY: X-RAY - ESOPHAGUS (BARIUM SWALLOW) WITH FLUOROSCOPY REASON FOR EXAM: Female, 75 years old. PHARYNGOESOPHAGEAL DYSPHAGIA TECHNIQUE: 60 view(s) of the esophagus were obtained following swallowing of barium. FLUOROSCOPY TIME (if supplied): (33 seconds) minutes/seconds COMPARISON: None. FINDINGS: There is no demonstrated esophageal foreign body. There is no demonstrated stricture or mucosal abnormality. There is a moderate sized hiatal hernia. The patient ingested a 12 mm tablet of barium. The tablet is trapped at the gastroesophageal junction. There is atherosclerotic calcification of the aortic arch with tortuosity of the descending aorta. Prior CABG Normal visualized pulmonary parenchyma. Normal visualized osseous structures of the thorax. RAD/Esophagus Dual Contrast IMPRESSION: Moderate sized hiatal hernia with trapping of the 12 mm tablet of barium at the gastroesophageal junction. Electronically Signed: Geoffrey Lezama MD at 9:58 EDT , Service support ,
== END ==
PROVIDERS: Referring Provider Nurse Practitioner; Visit Provider Nurse Practitioner
DX: R13.14 Dysphagia, pharyngoesophageal phase (principal)
CPT/HCPCS: 74221

== ENCOUNTER 2021-04-09 10:57 | Emergency (ER) | payer MEDICARE, MEDICAID, SELFPAY ==
[2021-04-09 10:58] VITALS: BP 148/90; PULSE 81; RESP 16; TEMP 36.4; O2SAT 96; BMI 46.3
--- NOTE | 2021-04-09 11:31 | RAD_ITS ---
HISTORY: injury. TECHNIQUE: XR Hip Unilateral with Pelvis when performed; 2-3 Views. # of images incl. paperwork: 3. COMPARISON: 02/05/2019. FINDINGS: OSSEOUS STRUCTURES: No acute displaced fracture identified. Note that overlapping bowel shadows may obscure detail. Mineralization unremarkable. ALIGNMENT/JOINTS: No dislocation. Mild degenerative changes of the hips and sacroiliac joint. RAD/HIP, UNI W/ Pelvis 2-3 Views IMPRESSION: No acute fracture or dislocation identified in the left hip. at 1214 Reported and signed by: Ada Juan MD Electronically Signed: Ada Juan MD at 12:12 EDT Tel , Service support ,
--- NOTE | 2021-04-09 11:31 | RAD_ITS ---
HISTORY: injury. TECHNIQUE: XR Ankle Min 3 Views. # of images incl. paperwork: 3. COMPARISON: None. FINDINGS: BONES: No acute fracture identified. Mineralization unremarkable. JOINTS: No dislocation. Degenerative changes. SOFT TISSUES: Soft tissue swelling and mild joint effusion. Vascular calcification. Surgical clips. RAD/Ankle min 3 Views IMPRESSION: Soft tissue swelling of the left ankle without acute osseous abnormality identified. at 1216 Reported and signed by: Ada Juan MD Electronically Signed: Ada Juan MD at 12:14 EDT Tel , Service support ,
--- NOTE | 2021-04-09 11:32 | EDS_ITS ---
HPI History of Present Illness Chief Complaint: Lower Extremity Injury Detail of Chief Complaint: Injury to her left lower extremity that occurred 2 nights ago Informant: patient Narrative Narrative: Patient presents to the emergency department with her daughter after injuring her left ankle and left hip 2 nights ago. Patient states that she stepped onto her patio and twisted when she tripped however did not actually fall. Patient is having a hard time bearing weight now secondary to pain in left ankle and left hip. Patient also has history of sciatica. Patient denies any other injuries. [facility] Medical History (Updated 04/09/21 @ 13:[address] Logan Ledesma, DO) Alzheimer's dementia Anxiety Atherosclerosis of coronary artery of [place] heart without angina pectoris Essential (primary) hypertension GERD (gastroesophageal reflux disease) HLD (hyperlipidemia) Hypothyroidism Obesity (BMI 30-39.9) Paroxysmal atrial fibrillation Pseudoseizures Home Medications levothyroxine 112 mcg PO DAILY 07/19/17 [History Last Taken 11/30/20] aspirin 81 mg PO DAILY 06/08/20 [History Last Taken 06/08/20] budesonide 9 mg PO DAILY 06/08/20 [History Last Taken 11/30/20] omeprazole 40 mg PO DAILY 06/08/20 [History Last Taken 11/30/20] atorvastatin 20 mg tablet 20 mg PO QHS #90 tab 06/09/20 [Rx Last Taken 11/29/20] metoprolol tartrate 50 mg PO BID 06/09/20 [History Last Taken 11/30/20] apixaban 5 mg PO BID 11/30/20 [History Last Taken 11/30/20] furosemide 40 mg PO DAILY 11/30/20 [History Last Taken 11/30/20] lisinopril 20 mg PO DAILY 11/30/20 [History Last Taken 11/30/20] sertraline 50 mg PO DAILY 11/30/20 [History Last Taken 11/30/20] cholestyramine (with sugar) [Questran] 1 ea PO TID 04/09/21 [History Last Taken Unknown] famotidine [Pepcid] 20 mg PO DAILY 04/09/21 [History Last Taken Unknown] Allergy/AdvReac Type Severity Reaction Status Date / Time NOVACAINE AdvReac ELEVATED Uncoded 04/09/21 11:01 BLOOD PRESSURE Family History Mother Heart disease Father Heart disease Surgical History H/O coronary artery bypass surgery (01/29/08) History of left heart catheterization (01/12/19) Social History (Updated 10/12/20 @ 13:19 by Nahun Murcia [employer] DEVELOPER, [employer] DEVELOPER-C) Smoking Status: Never smoker alcohol intake: never caffeine: Yes Type: coffee Number of servings: 6 ROS ROS ED Constitutional Constitutional ED: Reports systems reviewed and no addt'l complaints, except as documented; Denies body ache(s), change in weight or chills Eyes Eyes: Denies acute decrease in peripheral vision, change in vision, double vision or loss of vision ENT ENT ED: Reports none; Denies ear pain, lip swelling, loss taste/smell, neck pain, otalgia or sore throat Cardiovascular Cardiovascular: Reports none; Denies abdominal pain, chest pain with activity, leg edema, lightheadedness, palpitations, rapid heart rate or syncope Respiratory/Chest Respiratory/Chest: Reports none; Denies change in mental status, dry cough, dyspnea, hemoptysis, shortness of breath at rest or shortness of breath with exertion Gastrointestinal Gastrointestinal: Reports none; Denies abdominal pain, change in stool character, diarrhea, hematemesis, hematochezia, melena, rectal bleeding or vomiting Genitourinary Genitourinary ED: Reports none; Denies abdominal discomfort, anuria, dysuria, genital pain or polyuria Musculoskeletal Musculoskeletal: Reports none and other Details: Left ankle and left hip pain ; Denies arthralgias, back pain, difficulty walking, extremity pain, muscle weakness or myalgias Integumentary Reports none; Denies abscess or rash Neurologic Neurologic: Reports none; Denies abnormal gait, confusion, focal weakness, frequent falls, headache(s), loss of vision, numbness, paresthesias, radicular pain, vertigo or weakness Psychiatric Psychiatric: Reports systems reviewed and no addt'l complaints, except as documented and none; Denies behavioral changes, confusion, difficulty concentrating, hallucinations, suicidal ideation, tactile hallucinations or visual hallucinations Endocrine Endocrinology: Denies none, cold intolerance, excessive sweating, fatigue or heat intolerance Hematologic/Lymphatic Hematologic/Lymphatic: Reports none; Denies anemia, easy bleeding or easy bruising Allergic/Immunologic Allergic/Immunologic ED: Denies as per HPI, none, lip swelling, mouth swelling, throat swelling, tongue swelling or hives EXAM Physical Exam Const Vital Signs: 04/09/21 10:58 Temperature 97.5 F L Temperature Source Temporal Pulse Rate 81 Respiratory Rate 16 Blood Pressure 148/90 H Blood Pressure Mean 109 Pulse Ox 96 Oxygen Delivery Method Room Air Positive well nourished and well developed General Appearance ED: well developed and NAD HEENT Reports TM's clear and moist mucous membranes normocephalic and atraumatic; Negative for trauma or tenderness Tympanic Membrane ED: Yes TM's clear Eyes PERRL and EOMs intact bilaterally General Eye ED: Negative for pale conjunctiva or scleral icterus Neck no lymphadenopathy, supple and no JVD General: Negative for tenderness Chest Wall inspection of chest normal and palpation of chest normal Chest: Negative for tenderness Resp normal respiratory effort and clear to auscultation bilaterally Effort and Inspection: Negative for respiratory distress or pain with movement Auscultation: Negative for rhonchi, wheezes or diminished lung sounds Cardio regular rate, regular rhythm, S1 normal heart sound, S2 normal heart sound and no murmurs Peripheral Pulses: pulses 2+ throughout GI normal to inspection, nondistended, normoactive bowel sounds, soft to palpation, non-tender, non-distended and no masses Back/Spine no CVA tenderness and no thoracic nor lumbar tenderness Extremity Extremity Narrative: Evaluation of the left leg reveals tenderness palpation over the left hip and left buttock. No pain with logrolling. No shortening or external rotation noted. No real straight leg raise pain noted. Neurovascular intact distally. Evaluation of the left ankle reveals tenderness over the lateral malleolus. No obvious deformity. No pain at the proximal fibular head and no pain at the base of the fifth metatarsal. General Extremety ED: Negative for edema General Extremity: Negative for edema Neuro oriented x3, CN's II-XII intact bilaterally, no sensory deficits noted and gait normal Sensorium / Orientation: awake, alert, oriented to person, oriented to place and oriented to time Motor Exam: strength 5/5 throughout and strength abnormal Psych mental status grossly normal Skin no rashes or lesions noted and no wounds MDM MDM MDM Narrative Medical decision making narrative: Patient will be given an air splint for her ankle. She will stick with Tylenol for her discomfort as it does seem to help her. Patient will follow up with her primary care physician 5 to 7 days. Radiography Diagnostic Testing: Radiology Impression Ankle X-Ray 04/09/21 11:31 IMPRESSION: Soft tissue swelling of the left ankle without acute osseous abnormality identified. at 1216 Reported and signed by: Ada Juan MD Electronically Signed: Ada Juan MD at 12:14 EDT Tel , Service support , Hip/Pelvis X-Ray 04/09/21 11:31 IMPRESSION: No acute fracture or dislocation identified in the left hip. at 1214 Reported and signed by: Ada Juan MD Electronically Signed: Ada Juan MD at 12:12 EDT Tel , Service support , Three-view x-rays of left ankle obtained interpreted by myself as no acute fractures or dislocations and radiology in agreement. Patient also had x-rays of her left hip interpreted by myself as no acute fractures and dislocations. Radiology in agreement. Discharge Plan Triage Chief Complaint: Lower Extremity Injury ED Provider: Logan Ledesma Dx/Rx/DC Orders Clinical Impression: Left ankle sprain, Sprain of left hip Instructions: ED Hip Strain, ED Ankle Sprain (Adult) Prescriptions: No Action levothyroxine 112 MCG tablet 112 mcg PO DAILY RF: 0 budesonide 3 MG capsule,delayed,extend.release 9 mg PO DAILY RF: 0 omeprazole 40 MG capsule,delayed release(DR/EC) 40 mg PO DAILY RF: 0 aspirin 81 MG tablet,chewable 81 mg PO DAILY RF: 0 metoprolol tartrate 50 MG tablet 50 mg PO BID RF: 0 lisinopril 20 MG tablet 20 mg PO DAILY RF: 0 sertraline 50 MG tablet 50 mg PO DAILY RF: 0 furosemide 40 MG tablet 40 mg PO DAILY RF: 0 apixaban 5 MG tablet 5 mg PO BID RF: 0 famotidine [Pepcid] 20 mg Tablet 20 mg PO DAILY RF: 0 cholestyramine (with sugar) [Questran] 4 gram powder in packet 1 ea PO TID RF: 0 atorvastatin 20 mg tablet 20 mg PO QHS Qty: 90 RF: 4 Primary Care Provider: Bal Benz Referrals: Bal Benz [Primary Care Provider] - 3-5 Days Disposition Disposition: Home, Self Care
[2021-04-09 13:48] VITALS: BP 138/78; PULSE 56; RESP 16
== END 2021-04-09 13:49 | disposition home or self-care (01) ==
PROVIDERS: Emergency Provider Emergency Medicine
DX: S73.102A Unspecified sprain of left hip, initial encounter (principal); S93.402A Sprain of unspecified ligament of left ankle, initial encounter; W18.40XA Slipping, tripping and stumbling without falling, unspecified, initial encounter; Y93.9 Activity, unspecified; Y92.89 Other specified places as the place of occurrence of the external cause; Y99.8 Other external cause status; E03.9 Hypothyroidism, unspecified; E78.5 Hyperlipidemia, unspecified; F41.9 Anxiety disorder, unspecified; G30.9 Alzheimer's disease, unspecified; F02.80 Dementia in other diseases classified elsewhere, unspecified severity, without behavioral disturbance, psychotic disturbance, mood disturbance, and anxiety; I10 Essential (primary) hypertension; I25.10 Atherosclerotic heart disease of native coronary artery without angina pectoris; I48.0 Paroxysmal atrial fibrillation; K21.9 Gastro-esophageal reflux disease without esophagitis; E66.9 Obesity, unspecified; Z68.30 Body mass index [BMI] 30.0-30.9, adult; Z79.01 Long term (current) use of anticoagulants; Z79.82 Long term (current) use of aspirin
CPT/HCPCS: 73502; 73610; 99282

== ENCOUNTER → 2021-04-18 10:49 | Outpatient (CLI) | payer MEDICARE, MEDICAID, SELFPAY ==
[2021-04-18 08:40] VITALS: BMI 45.5
[2021-04-18 12:01] LABS: Absolute Lymphocyte Count 1.45 X10^3/uL (0.83-4.51); Basophil# 0.02 X10^3/uL; Basophil% 0.3 % (0-1); Eosinophil# 0.07 X10^3/uL; Eosinophils% 1.1 % (0-5); Hematocrit 40.4 % (37-47); Hemoglobin 13.2 g/dL (12.0-15.0); Lymphocyte # 1.45 X10^3/ul (0.83-4.51); Lymphocyte % 23.2 % (19-41); Mean Corp Hgb Conc 32.7 g/dL (32-36); Mean Corpuscular Hgb 29.2 pg (27.0-32.0); Mean Corpuscular Volume 89.4 fL (81-99); Mean Platelet Vol. 10.8 fl (6.2-12.0); Monocyte# 0.69 X10^3/uL; Monocyte% 11.1 % (0-10); NRBC Flagged by Analyzer 0 % (0-5); Neutrophil # 3.99 X10^3/uL (2.7-7.7); Platelet Count 196 K/mm3 (150-450); RBC Distribution Width CV 14.3 % (11.6-14.6); RBC Distribution Width SD 46.4 fl (35.1-43.9); Red Blood Count 4.52 M/mm3 (4.2-5.4); White Blood Count 6.2 K/mm3 (4.4-11.0)
[2021-04-18 12:21] LABS: Anion Gap 6 (5-15); BUN 25 mg/dL (7-18); BUN/Creat Ratio 20.5 RATIO (10-20); Calcium,Total 9.1 mg/dL (8.5-10.1); Chloride 105 mmol/L (98-107); Creatinine, Serum 1.22 mg/dL (0.55-1.02); EST Glomerular Filtration Rate 46 mL/min (>60); Est Glom Filt Rate - Afr Amer 55 mL/min (>60); Glucose 86 mg/dL (74-106); Potassium 4.1 mmol/L (3.5-5.1); Sodium Level 139 mmol/L (136-145)
[2021-04-18 15:13] LABS: BNP,B-Type NATRIURETIC PEPTIDE 112.2 pg/mL (0-100)
== END ==
PROVIDERS: Referring Provider Nurse Practitioner Gerontology; Visit Provider Nurse Practitioner Gerontology
DX: R06.02 Shortness of breath (principal); R53.83 Other fatigue
CPT/HCPCS: 36415; 80048; 83880; 85025

== ENCOUNTER 2021-05-07 14:28 | Emergency (ER) | payer MEDICARE, MEDICAID, SELFPAY ==
[2021-05-07] VITALS (7 sets, daily range): BP systolic 117–134; BP diastolic 69–101; PULSE 113–137; RESP 21–24; TEMP 36.3–36.4; O2SAT 96–97; BMI 44.1
--- NOTE | 2021-05-07 14:45 | EKG12_ITS ---
Test Reason : SOB Blood Pressure : / mmHG Vent. Rate : 133 BPM Atrial Rate : 101 BPM P-R Int : 000 ms QRS Dur : 088 ms QT Int : 306 ms P-R-T Axes : 000 034 129 degrees QTc Int : [address] & T wave abnormality, consider inferior ischemia Abnormal ECG Confirmed by JOSE TIRADO, MIKHAIL ([id number]), video tape editor ENEIDA FREED ([id number]) on 05/09/2021 8:37:26 AM Referred By: YESIKA Confirmed By:MIKHAIL GARCIA MD
--- NOTE | 2021-05-07 15:00 | EX.ED.DYSGE1 ---
HPI History of Present Illness Chief Complaint: Shortness of Breath Narrative Narrative: 75-year-old female with history of paroxysmal A. fib, hypertension, hyperlipidemia, CAD presenting with generalized weakness. Patient states that she has been sick for about a week and a half. She was tested for Covid on Saturday which returned positive on . Patient was previously being assisted by her other daughter who subsequently became ill. Her other daughter is caring for her and states that she has been generally weak. She has decreased p.o. intake. Patient states that she is able to eat and drink although she does not have the desire to eat and drink. She denies any fever and states he did not have a fever throughout her course. She does not have any chest pain. She has some mild dyspnea. Patient did not take her medication this morning but states that she has been taking all of her medications up until today. When I asked her why she did not take her medications this morning she stated because I am bad. [facility] Medical History Alzheimer's dementia Anxiety Atherosclerosis of coronary artery of [place] heart without angina pectoris Essential (primary) hypertension GERD (gastroesophageal reflux disease) HLD (hyperlipidemia) Hypothyroidism Obesity (BMI 30-39.9) Paroxysmal atrial fibrillation Pseudoseizures Home Medications levothyroxine 112 mcg PO DAILY 07/19/17 [History Last Taken 11/30/20] aspirin 81 mg PO DAILY 06/08/20 [History Last Taken 06/08/20] budesonide 9 mg PO DAILY 06/08/20 [History Last Taken 11/30/20] omeprazole 40 mg PO DAILY 06/08/20 [History Last Taken 11/30/20] atorvastatin 20 mg tablet 20 mg PO QHS #90 tab 06/09/20 [Rx Last Taken 11/29/20] metoprolol tartrate 50 mg PO BID 06/09/20 [History Last Taken 11/30/20] apixaban 5 mg PO BID 11/30/20 [History Last Taken 11/30/20] furosemide 40 mg PO DAILY 11/30/20 [History Last Taken 11/30/20] lisinopril 5 mg PO DAILY 11/30/20 [History Last Taken 11/30/20] sertraline 50 mg PO DAILY 11/30/20 [History Last Taken 11/30/20] cholestyramine (with sugar) [Questran] 1 ea PO TID 04/09/21 [History Last Taken Unknown] famotidine [Pepcid] 20 mg PO DAILY 04/09/21 [History Last Taken Unknown] benzonatate [Tessalon Perles] 100 mg PO TID PRN 05/07/21 [History Last Taken Unknown] cephalexin 500 mg PO BID 7 Days #14 cap 05/07/21 [Rx Last Taken Unknown] nitroglycerin [Nitrostat] 0.4 mg SUBLINGUAL Q5M PRN 05/07/21 [History Last Taken Unknown] ondansetron 4 mg PO Q8H PRN PRN #10 tab 05/07/21 [Rx Last Taken Unknown] prednisone 20 mg PO DAILY 05/07/21 [History Last Taken Unknown] Allergy/AdvReac Type Severity Reaction Status Date / Time NOVACAINE AdvReac ELEVATED Uncoded 05/07/21 14:29 BLOOD PRESSURE Family History Mother Heart disease Father Heart disease Surgical History H/O coronary artery bypass surgery (01/29/08) History of left heart catheterization (01/12/19) Social History Smoking Status: Never smoker alcohol intake: never caffeine: Yes Type: coffee Number of servings: 6 ROS ROS ED Constitutional Constitutional ED: Denies chills or fever(s) Eyes Eyes: Denies blurry vision or diplopia ENT ENT ED: Denies rhinorrhea or sore throat Cardiovascular Cardiovascular: Reports racing heartbeat; Denies chest pain Respiratory/Chest Respiratory/Chest: Reports cough and dyspnea Gastrointestinal Gastrointestinal: Reports diarrhea; Denies abdominal pain, nausea or vomiting Genitourinary Genitourinary ED: Denies dysuria or hematuria Musculoskeletal Musculoskeletal: Reports myalgias; Denies arthralgias, back pain or neck pain Integumentary Denies Abrasions or rash Neurologic Neurologic: Denies headache(s) or paresthesias EXAM Physical Exam Const Vital Signs: 05/07/21 14:29 05/07/21 14:31 05/07/21 15:21 Temperature 97.6 F L 97.6 F L Temperature Source Temporal Temporal Pulse Rate 137 H 137 H Respiratory Rate 21 H 21 H Respiratory Effort Respiratory Depth Respiratory Pattern Blood Pressure 130/101 H 130/101 H Blood Pressure Mean 110 110 Pulse Ox 96 96 97 Oxygen Delivery Method Room Air Room Air Room Air 05/07/21 15:54 05/07/21 15:58 05/07/21 15:59 Temperature 97.4 F L 97.5 F L Temperature Source Temporal Temporal Pulse Rate 113 H Respiratory Rate 22 H Respiratory Effort Non-Labored Respiratory Depth Normal Respiratory Pattern Normal Blood Pressure 117/69 117/69 Blood Pressure Mean 85 85 Pulse Ox Oxygen Delivery Method Room Air Room Air Positive well nourished General Appearance ED: NAD; Negative for pallor HEENT Reports moist mucous membranes Negative for trauma Eyes PERRL General Eye ED: Negative for pale conjunctiva or scleral icterus Neck no lymphadenopathy and supple Resp normal respiratory effort and clear to auscultation bilaterally Cardio Rate: tachycardic Rhythm: abnormal rhythm irregularly irregular GI normal to inspection, nondistended, normoactive bowel sounds Neuro oriented x3, CN's II-XII intact bilaterally and no sensory deficits noted Sensorium / Orientation: alert Motor Exam: strength 5/5 throughout Psych mental status grossly normal Skin no rashes or lesions noted and no wounds General Skin Exam: Negative for jaundice or pallor MDM MDM MDM Narrative Medical decision making narrative: Patient presenting with generalized fatigue, decreased p.o. intake. She states she has been sick with Covid for about a week and a half. She tested +3 days ago. Her daughter reports that she has been generally weak. They have not been able to monitor her oxygen and in fact state they do not know what a pulse oximeter is. Patient states that when she tries to eat or drink she might gag but states she is not vomiting. She does feel that she could eat and drink if she wanted to however she has no desire to eat and drink. Since she is tachycardic and tachypneic on arrival sepsis work-up was started. EKG on my interpretation shows atrial fibrillation at a rate of 133 bpm. Since the patient did not take her metoprolol at home I did give her a dose here and her heart rate has come down to normal heart rate. Her blood pressure is normal. I did check blood work and she is slightly leukopenic with a white blood cell 4.0, hemoglobin 13.8, hematocrit 42.2, platelets 137. Procalcitonin is negative. Lactic acid within normal limits. LFTs are not elevated. Patient is anticoagulated on Eliquis so I do not suspect pulmonary embolism. Chest x-ray on my interpretation shows no acute cardiopulmonary process and the radiologist does agree. Patient does have blood cultures and urine cultures pending but at this point she does not look to be septic and I feel she can be discharged home with Keflex. First dose was given in the ED. She was given a prescription for Keflex and Zofran. She is encouraged to hydrate and advance her diet as tolerated. Patient does state that she feels better than when she arrived and she is comfortable being discharged home. She does not want to be admitted or placed anywhere. Patient's daughter will help care for her and they are given return precautions. Impression: 1. A. fib RVR resolved 2. 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 UTI 4. Generalized weakness Lab Data Attestation: I reviewed the patient's lab results. Labs: Laboratory Results - last 24 hr 05/07/21 05/07/21 05/07/21 15:55 16:05 16:05 WBC 4.0 L RBC 4.74 Hgb 13.8 Hct 42.2 MCV 89.0 MCH 29.1 MCHC 32.7 RDW Std Deviation 46.2 H RDW Coeff of Jessica 14.3 Plt Count 137 L MPV 10.1 Immature Gran % (Auto) 0.200 Neut % (Auto) 64.7 Lymph % (Auto) 23.2 [place] % (Auto) 11.5 H Eos % (Auto) 0.2 Baso % (Auto) 0.2 Absolute Neuts (auto) 2.6 Absolute Lymphs (auto) 0.93 Nucleated RBC % 0 PT INR APTT Sodium Potassium Chloride Carbon Dioxide Anion Gap BUN Creatinine Estim Creat Clear Calc Est GFR (MDRD) Af Amer Est GFR (MDRD) Non-Af BUN/Creatinine Ratio Glucose Lactic Acid Calcium Total Bilirubin AST ALT Alkaline Phosphatase Troponin I High Sens Total Protein Albumin Globulin Albumin/Globulin Ratio Procalcitonin 0.12 H Urine Color Yellow Urine Clarity Cloudy Urine pH 6.0 Ur Specific [employer] 1.015 Urine Protein 15 H Urine Glucose (UA) Normal Urine Ketones Negative Urine Occult Blood 10 H Urine Nitrite Positive H Urine Bilirubin Negative Urine Urobilinogen Normal Ur Leukocyte Esterase 500 H Urine RBC 0-5 SEEN Urine WBC 10-25 SEEN Ur Squamous Epith Cells 0-5 SEEN Ur Transition Epith Cell 0-5 SEEN Urine Bacteria 3+ Urine Mucus 0 SEEN 05/07/21 05/07/21 05/07/21 16:05 16:05 16:05 WBC RBC Hgb Hct MCV MCH MCHC RDW Std Deviation RDW Coeff of Jessica Plt Count MPV Immature Gran % (Auto) Neut % (Auto) Lymph % (Auto) [place] % (Auto) Eos % (Auto) Baso % (Auto) Absolute Neuts (auto) Absolute Lymphs (auto) Nucleated RBC % PT 14.4 INR 1.2 APTT 31.2 Sodium 139 Potassium 3.6 Chloride 105 Carbon Dioxide 27.0 Anion Gap 7 BUN 19 H Creatinine 1.26 H Estim Creat Clear Calc 35.78 Est GFR (MDRD) Af Amer 53 L Est GFR (MDRD) Non-Af 44 L BUN/Creatinine Ratio 15.1 Glucose 75 Lactic Acid 1.4 Calcium 8.3 L Total Bilirubin 0.60 AST 34 ALT 37 Alkaline Phosphatase 85 Troponin I High Sens 17 Total Protein 6.3 L Albumin 2.8 L Globulin 3.5 Albumin/Globulin Ratio 0.8 L Procalcitonin Urine Color Urine Clarity Urine pH Ur Specific [employer] Urine Protein Urine Glucose (UA) Urine Ketones Urine Occult Blood Urine Nitrite Urine Bilirubin Urine Urobilinogen Ur Leukocyte Esterase Urine RBC Urine WBC Ur Squamous Epith Cells Ur Transition Epith Cell Urine Bacteria Urine Mucus Radiography Diagnostic Testing: Radiology Impression Chest X-Ray 05/07/21 16:49 IMPRESSION: Nonacute portable x-ray examination of the chest. Electronically Signed: Tiago See MD ([place]) at 17:17 EDT , Service support , Discharge Plan Triage Chief Complaint: Shortness of Breath ED Provider: Misbah Quezada Dx/Rx/DC Orders Instructions: Coronavirus Disease 2019 (COVID-19): Caring for Yourself or Others, ED CYSTITIS Female Adult Prescriptions: New cephalexin 500 mg capsule 500 mg PO BID 7 Days Qty: 14 RF: 0 ondansetron 4 mg tablet,disintegrating 4 mg PO Q8H PRN PRN (Reason: Nausea) Qty: 10 RF: 0 No Action levothyroxine 112 MCG tablet 112 mcg PO DAILY RF: 0 budesonide 3 MG capsule,delayed,extend.release 9 mg PO DAILY RF: 0 omeprazole 40 MG capsule,delayed release(DR/EC) 40 mg PO DAILY RF: 0 aspirin 81 MG tablet,chewable 81 mg PO DAILY RF: 0 metoprolol tartrate 50 MG tablet 50 mg PO BID RF: 0 lisinopril 20 MG tablet 5 mg PO DAILY RF: 0 sertraline 50 MG tablet 50 mg PO DAILY RF: 0 furosemide 40 MG tablet 40 mg PO DAILY RF: 0 apixaban 5 MG tablet 5 mg PO BID RF: 0 famotidine [Pepcid] 20 mg Tablet 20 mg PO DAILY RF: 0 cholestyramine (with sugar) [Questran] 4 gram powder in packet 1 ea PO TID RF: 0 prednisone 20 mg Tablet 20 mg PO DAILY RF: 0 benzonatate [Tessalon Perles] 100 mg Capsule 100 mg PO TID PRN (Reason: Cough) RF: 0 nitroglycerin [Nitrostat] 0.4 mg Tablet, Sublingual 0.4 mg SUBLINGUAL Q5M PRN (Reason: chest pain) RF: 0 atorvastatin 20 mg tablet 20 mg PO QHS Qty: 90 RF: 4 Primary Care Provider: Bal Benz Referrals: Bal Benz [Primary Care Provider] - Disposition Disposition: Home, Self Care
[2021-05-07] MEDS: Metoprolol Tartrate 5 MG/5 ML Vial IV (15:56)
[2021-05-07 16:16] LABS: Mucous, Urine 0 SEEN /hpf (<or=2+)
[2021-05-07 16:21] LABS: Color, Urine Yellow (Yellow); Glucose, Dipstick Normal (Normal); Ketone-Dipstick Negative (Negative); Leukocyte Esterase-Dipstick 500 /ul (Negative); Nitrite-Dipstick Positive (Negative); Occult Blood-Urine 10 /ul (Negative); Protein-Dipstick 15 mg/dl (Negative); Specific Gravity, Urine 1.015 (1.002-1.030); Urine Bilirubin Dipstick Negative (Negative); Urine Clarity Cloudy (Clear); Urine Urobilinogen Normal (Normal)
[2021-05-07 16:21] LABS: Absolute Lymphocyte Count 0.93 X10^3/uL (0.83-4.51); Absolute Neutrophil Count 2.6 X10^3/uL (2.0-7.7); Basophil# 0.01 X10^3/uL; Basophil% 0.2 % (0-1); Eosinophil# 0.01 X10^3/uL; Eosinophils% 0.2 % (0-5); Hematocrit 42.2 % (37-47); Hemoglobin 13.8 g/dL (12.0-15.0); Lymphocyte # 0.93 X10^3/ul (0.83-4.51); Lymphocyte % 23.2 % (19-41); Mean Corp Hgb Conc 32.7 g/dL (32-36); Mean Corpuscular Hgb 29.1 pg (27.0-32.0); Mean Platelet Vol. 10.1 fl (6.2-12.0); Monocyte# 0.46 X10^3/uL; Monocyte% 11.5 % (0-10); NRBC Flagged by Analyzer 0 % (0-5); Neutrophil # 2.59 X10^3/uL (2.7-7.7); Neutrophil % 64.7 % (47-70); Platelet Count 137 K/mm3 (150-450); RBC Distribution Width CV 14.3 % (11.6-14.6); RBC Distribution Width SD 46.2 fl (35.1-43.9); Red Blood Count 4.74 M/mm3 (4.2-5.4)
[2021-05-07 16:34] LABS: International Normalized Ratio 1.2; Prothrombin Time (Protime)PT. 14.4 SECONDS (11.7-14.9)
[2021-05-07 16:35] LABS: Partial Thromboplast Time 31.2 Seconds (24.1-36.2)
[2021-05-07 16:46] LABS: ALB/GLOB Ratio 0.8 RATIO (0.9-2.4); AST(SGOT) 34 U/L (15-37); Alanine Aminotransfer ALT/SGPT 37 U/L (13-56); Albumin, Serum 2.8 g/dL (3.2-5.0); Alkaline Phosphatase 85 U/L (45-117); Anion Gap 7 (5-15); BUN 19 mg/dL (7-18); BUN/Creat Ratio 15.1 RATIO (10-20); Calcium,Total 8.3 mg/dL (8.5-10.1); Chloride 105 mmol/L (98-107); Creatinine, Serum 1.26 mg/dL (0.55-1.02); EST Glomerular Filtration Rate 44 mL/min (>60); Est Glom Filt Rate - Afr Amer 53 mL/min (>60); Estimated Creatinine Clearance 35.78 ml/min; Globulin 3.5 g/dL (2.2-4.2); Glucose 75 mg/dL (74-106); Lactic Acid 1.4 mmol/L (0.4-1.9); Potassium 3.6 mmol/L (3.5-5.1); Protein, Total 6.3 g/dL (6.4-8.2); Sodium Level 139 mmol/L (136-145); Troponin-I HS 17 pg/mL (3.0-54.0)
[2021-05-07 16:49] LABS: Bacteria 3+ /hpf (None Seen); Red Blood Cells-Urine 0-5 SEEN /hpf (0-5); Squamous Epithelial Cells - UA 0-5 SEEN /hpf (5-10); White Blood Cells 10-25 SEEN /hpf (0-5)
--- NOTE | 2021-05-07 16:49 | RAD_ITS ---
STUDY: X-RAY CHEST REASON FOR EXAM: Female, 75 years old. dyspnea TECHNIQUE: AP COMPARISON: None. FINDINGS: EKG leads project over the chest. Sternal wires and mediastinal surgical clips compatible with prior CABG. The lungs are clear and expanded. There is no demonstrated pleural abnormality. Normal size heart. Normal mediastinum and ale. Normal visualized pulmonary arteries. Normal visualized aortic arch and descending thoracic aorta. No acute fracture. Hiatal hernia. RAD/Chest 1 View (Portable) IMPRESSION: Nonacute portable x-ray examination of the chest. Electronically Signed: Tiago See MD ([place]) at 17:17 EDT , Service support ,
[2021-05-07 16:50] LABS: Transitional Epithelial - Ur 0-5 SEEN /hpf (0-5)
[2021-05-07 16:51] LABS: Procalcitonin 0.12 ng/mL (0.00-0.09)
[2021-05-07] MEDS: Cephalexin 250 MG Capsule 500 MG PO (19:04)
[2021-05-07] MEDS: Ondansetron 4 MG/2 ML Vial IV (19:04)
== END 2021-05-07 19:24 | disposition home or self-care (01) ==
PROVIDERS: Emergency Provider Student in an Organized Health Care Education/Training Program
DX: I48.91 Unspecified atrial fibrillation (principal); N39.0 Urinary tract infection, site not specified; R53.1 Weakness; Z86.16 Personal history of COVID-19; E03.9 Hypothyroidism, unspecified; E78.5 Hyperlipidemia, unspecified; F02.80 Dementia in other diseases classified elsewhere, unspecified severity, without behavioral disturbance, psychotic disturbance, mood disturbance, and anxiety; F41.9 Anxiety disorder, unspecified; G30.9 Alzheimer's disease, unspecified; I10 Essential (primary) hypertension; I25.10 Atherosclerotic heart disease of native coronary artery without angina pectoris; K21.9 Gastro-esophageal reflux disease without esophagitis; Z79.01 Long term (current) use of anticoagulants; Z79.52 Long term (current) use of systemic steroids; Z79.82 Long term (current) use of aspirin
CPT/HCPCS: 71045; 80053; 81001; 83605; 84145; 84484; 85025; 85610; 85730; 87040; 87077; 87086; 87088; 87186; 93005; 96374; 96375; 99285; J7040; A4216; J2405

== ENCOUNTER 2021-09-22 23:22 | Emergency (ER) | payer MEDICARE, MEDICAID, SELFPAY ==
[2021-09-22 23:23] VITALS: BP 140/99; PULSE 100; RESP 18; TEMP 36.7; O2SAT 99; BMI 44.2
[2021-09-23] MEDS: Oxymetazoline 0.05% 1 SPRAY SPRAY.BTL 2 SPRAY NASAL (00:20)
--- NOTE | 2021-09-23 02:38 | EX.ED.DYSGE1 ---
HPI History of Present Illness Chief Complaint: Nosebleed Narrative Narrative: Patient is a 76-year-old female with a past medical history of atrial fibrillation who is currently on Eliquis. She states that she has been bleeding intermittently from her nose for the last 7 to 10-hour. She denies any direct trauma prior to the bleeding beginning she denies any headache or shortness of breath. She states that as the bleeding has been intermittent essentially all day and she cannot get it to stop she does not want to go to bed at this time for fear of the bleeding worsening and therefore she comes in for evaluation. [facility] Medical History (Updated 09/23/21 @ 02:[address] Kenton Jones, DO) Alzheimer's dementia Anxiety Atherosclerosis of coronary artery of [place] heart without angina pectoris Essential (primary) hypertension GERD (gastroesophageal reflux disease) HLD (hyperlipidemia) Hypothyroidism Obesity (BMI 30-39.9) Paroxysmal atrial fibrillation Pseudoseizures Home Medications levothyroxine 112 mcg PO DAILY 07/19/17 [History Last Taken 11/30/20] aspirin 81 mg PO DAILY 06/08/20 [History Last Taken 06/08/20] budesonide 9 mg PO DAILY 06/08/20 [History Last Taken 11/30/20] omeprazole 40 mg PO DAILY 06/08/20 [History Last Taken 11/30/20] sertraline 50 mg PO DAILY 11/30/20 [History Last Taken 11/30/20] cholestyramine (with sugar) [Questran] 1 ea PO TID 04/09/21 [History Last Taken Unknown] famotidine [Pepcid] 20 mg PO DAILY 04/09/21 [History Last Taken Unknown] benzonatate [Tessalon Perles] 100 mg PO TID PRN 05/07/21 [History Last Taken Unknown] nitroglycerin [Nitrostat] 0.4 mg SUBLINGUAL Q5M PRN 05/07/21 [History Last Taken Unknown] ondansetron 4 mg PO Q8H PRN PRN #10 tab 05/07/21 [Rx Last Taken Unknown] prednisone 20 mg PO DAILY 05/07/21 [History Last Taken Unknown] atorvastatin 20 mg tablet 20 mg PO DAILY #90 tab 05/10/21 [Rx Last Taken Unknown] lisinopril 20 mg tablet 20 mg PO DAILY #90 tab 05/10/21 [Rx Last Taken Unknown] metoprolol tartrate 50 mg tablet 50 mg PO BID #180 tablet 05/10/21 [Rx Last Taken Unknown] apixaban 5 mg tablet 5 mg PO BID #60 tab 06/09/21 [Rx Last Taken Unknown] furosemide 40 mg tablet See Rx Instructions .ROUTE .COMPLEX #28 tablet 09/07/21 [Rx Last Taken Unknown] Allergy/AdvReac Type Severity Reaction Status Date / Time NOVACAINE AdvReac ELEVATED Uncoded 09/22/21 23:25 BLOOD PRESSURE Family History Mother Heart disease Father Heart disease Surgical History H/O coronary artery bypass surgery (01/29/08) History of left heart catheterization (01/12/19) Social History Smoking Status: Never smoker alcohol intake: never caffeine: Yes Type: coffee Number of servings: 6 ROS ROS ED Constitutional Constitutional ED: Denies chills or fever(s) ENT ENT ED: Reports other Details: Positive nosebleed ; Denies sore throat Cardiovascular Cardiovascular: Denies chest pain Respiratory/Chest Respiratory/Chest: Denies cough or dyspnea Gastrointestinal Gastrointestinal: Denies abdominal pain, diarrhea, nausea or vomiting Genitourinary Genitourinary ED: Denies dysuria Musculoskeletal Musculoskeletal: Denies myalgias Integumentary Denies rash Neurologic Neurologic: Denies headache(s) Hematologic/Lymphatic Hematologic/Lymphatic: Reports easy bleeding and easy bruising EXAM Physical Exam Const Vital Signs: 09/22/21 23:23 Temperature 98.1 F Temperature Source Temporal Pulse Rate 100 Respiratory Rate 18 Blood Pressure 140/99 H Blood Pressure Mean 112 Pulse Ox 99 Oxygen Delivery Method Room Air Positive well nourished and well developed General Appearance ED: well developed HEENT HEENT Narrative: 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 There is dried blood in the bilateral naris but no active bleeding noted. There is also dried blood in the posterior pharynx but no airway edema or compromise or active bleeding in the throat present at this time Eyes PERRL and EOMs intact bilaterally Neck supple Resp normal respiratory effort and clear to auscultation bilaterally Cardio regular rate Rate: other Other Details: Irregularly irregular rhythm with regular rate consistent past medical history of atrial fibrillation Extremity normal to inspection Neuro oriented x3 and CN's II-XII intact bilaterally Sensorium / Orientation: alert Motor Exam: strength 5/5 throughout Psych mental status grossly normal Skin no rashes or lesions noted MDM MDM MDM Narrative Medical decision making narrative: Patient presented to the ER in no acute distress with just dried blood present in the bilateral naris. As she reported intermittent bleeding throughout the day as well as blood thinner use I did elect to place lidocaine with epinephrine and Afrin soaked cotton balls in the patient's nose. These were removed roughly 20 minutes later and at that time there is a small area of active bleeding along the right aspect of the septum near the septal perforation. The area would not quit bleeding with manual pressure and as she is on anticoagulation I did elect to place a Merocel 8 cm nasal packing. Once this was placed the patient was watched in the hospital for another 20 to 30 minutes and there was no overflow bleeding or blood noted in the posterior pharynx. 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 Prescriptions: No Action levothyroxine 112 MCG tablet 112 mcg PO DAILY RF: 0 budesonide 3 MG capsule,delayed,extend.release 9 mg PO DAILY RF: 0 omeprazole 40 MG capsule,delayed release(DR/EC) 40 mg PO DAILY RF: 0 aspirin 81 MG tablet,chewable 81 mg PO DAILY RF: 0 sertraline 50 MG tablet 50 mg PO DAILY RF: 0 famotidine [Pepcid] 20 mg Tablet 20 mg PO DAILY RF: 0 cholestyramine (with sugar) [Questran] 4 gram powder in packet 1 ea PO TID RF: 0 prednisone 20 mg Tablet 20 mg PO DAILY RF: 0 benzonatate [Tessalon Perles] 100 mg Capsule 100 mg PO TID PRN (Reason: Cough) RF: 0 nitroglycerin [Nitrostat] 0.4 mg Tablet, Sublingual 0.4 mg SUBLINGUAL Q5M PRN (Reason: chest pain) RF: 0 ondansetron 4 mg tablet,disintegrating 4 mg PO Q8H PRN PRN (Reason: Nausea) Qty: 10 RF: 0 atorvastatin 20 mg tablet 20 mg PO DAILY Qty: 90 RF: 3 lisinopril 20 mg tablet 20 mg PO DAILY Qty: 90 RF: 3 metoprolol tartrate 50 mg tablet 50 mg PO BID Qty: 180 RF: 3 apixaban 5 mg tablet 5 mg PO BID Qty: 60 RF: 11 furosemide 40 mg tablet See Rx Instructions .ROUTE .COMPLEX Qty: 28 RF: 11 Primary Care Provider: Bal Benz Referrals: Bal Benz [Primary Care Provider] - Disposition Disposition: Home, Self Care
[2021-09-23 02:54] VITALS: BP 138/62; PULSE 75; RESP 16
== END 2021-09-23 02:55 | disposition home or self-care (01) ==
PROVIDERS: Emergency Provider Emergency Medicine; Visit Provider Emergency Medicine
DX: R04.0 Epistaxis (principal); G30.9 Alzheimer's disease, unspecified; F02.80 Dementia in other diseases classified elsewhere, unspecified severity, without behavioral disturbance, psychotic disturbance, mood disturbance, and anxiety; I48.0 Paroxysmal atrial fibrillation; Z68.41 Body mass index [BMI] 40.0-44.9, adult; J34.89 Other specified disorders of nose and nasal sinuses; I10 Essential (primary) hypertension; E78.5 Hyperlipidemia, unspecified; F41.9 Anxiety disorder, unspecified; I25.10 Atherosclerotic heart disease of native coronary artery without angina pectoris; E03.9 Hypothyroidism, unspecified; E66.9 Obesity, unspecified; Z79.01 Long term (current) use of anticoagulants; Z79.82 Long term (current) use of aspirin; Z79.899 Other long term (current) drug therapy
CPT/HCPCS: 30901; 99282; J7030

== ENCOUNTER 2022-01-15 11:30 | Emergency (ER) | payer MEDICARE, MEDICAID, SELFPAY ==
[2022-01-15 11:31] VITALS: BP 104/79; PULSE 83; RESP 14; TEMP 36.8; O2SAT 96; BMI 40.8
--- NOTE | 2022-01-15 11:47 | EKG12_ITS ---
Test Reason : CP Blood Pressure : / mmHG Vent. Rate : 107 BPM Atrial Rate : 375 BPM P-R Int : 000 ms QRS Dur : 090 ms QT Int : 410 ms P-R-T Axes : 000 008 145 degrees QTc Int : 547 ms Atrial fibrillation with premature ventricular or aberrantly conducted complexes Nonspecific ST and T wave abnormality Abnormal ECG Confirmed by JOSE TIRADO, MIKHAIL ([id number]), scientific publications editor ENEIDA FREED ([id number]) on 01/16/2022 1:19:30 PM Referred By: NATTY Confirmed By:MIKHAIL GARCIA MD
--- NOTE | 2022-01-15 11:48 | ED.VIS.CHEST ---
HPI History of Present Illness Chief Complaint: Chest Pain Narrative Narrative: Presents with weakness and shortness of breath that is mostly exertional. This is been ongoing for few months, patient tells me that as long she is sitting down she has no issues but she gets short of breath and weak quite easily after she walks a certain distance. She has no fevers chills cough or congestion, she had a recent Holter monitor which showed paroxysmal atrial fibrillation however she has not followed up on this. She is on Eliquis and tells me she takes it most of the time. No recent fever or chills. No recent weight loss. She has lower extremity edema but this is unchanged [facility] Medical History (Updated 01/15/22 @ 13:[address] Olu Shi MD) Alzheimer's dementia Anxiety Atherosclerosis of coronary artery of [place] heart without angina pectoris Essential (primary) hypertension GERD (gastroesophageal reflux disease) HLD (hyperlipidemia) Hypothyroidism Obesity (BMI 30-39.9) Paroxysmal atrial fibrillation Pseudoseizures Home Medications levothyroxine 112 mcg PO DAILY 07/19/17 [History Last Taken 11/30/20] aspirin 81 mg PO DAILY 06/08/20 [History Last Taken 06/08/20] budesonide 9 mg PO DAILY 06/08/20 [History Last Taken 11/30/20] omeprazole 40 mg PO DAILY 06/08/20 [History Last Taken 11/30/20] sertraline 50 mg PO DAILY 11/30/20 [History Last Taken 11/30/20] cholestyramine (with sugar) [Questran] 1 ea PO TID 04/09/21 [History Last Taken Unknown] famotidine [Pepcid] 20 mg PO DAILY 04/09/21 [History Last Taken Unknown] benzonatate [Tessalon Perles] 100 mg PO TID PRN 05/07/21 [History Last Taken Unknown] nitroglycerin [Nitrostat] 0.4 mg SUBLINGUAL Q5M PRN 05/07/21 [History Last Taken Unknown] ondansetron 4 mg PO Q8H PRN PRN #10 tab 05/07/21 [Rx Last Taken Unknown] prednisone 20 mg PO DAILY 05/07/21 [History Last Taken Unknown] atorvastatin 20 mg tablet 20 mg PO DAILY #90 tab 05/10/21 [Rx Last Taken Unknown] lisinopril 20 mg tablet 20 mg PO DAILY #90 tab 05/10/21 [Rx Last Taken Unknown] apixaban 5 mg tablet 5 mg PO BID #60 tab 06/09/21 [Rx Last Taken Unknown] furosemide 40 mg tablet See Rx Instructions .ROUTE .COMPLEX #28 tablet 09/07/21 [Rx Last Taken Unknown] metoprolol tartrate 25 mg tablet 25 mg PO BID #60 tablet 01/01/22 [Rx Last Taken Unknown] Allergy/AdvReac Type Severity Reaction Status Date / Time NOVACAINE AdvReac ELEVATED Uncoded 01/15/22 11:33 BLOOD PRESSURE Family History Mother Heart disease Father Heart disease Surgical History H/O coronary artery bypass surgery (01/29/08) History of left heart catheterization (01/12/19) Social History Smoking Status: Never smoker alcohol intake: never caffeine: Yes Type: coffee Number of servings: 6 ROS ROS ED ROS Narrative Past medical history: Reviewed, includes history of hypothyroidism, hypertension, hypercholesterolemia, atrial fibrillation, Alzheimer's dementia Medications: Reviewed Social history: Noncontributory Review of systems: All systems negative except as indicated General: No fever Eyes: No visual changes ENT: No upper airway congestion, normal voice Neck: No neck pain Cardiovascular: No chest pain Respiratory: Exertional dyspnea Gastrointestinal: No abdominal pain, nausea vomiting or diarrhea Genitourinary: No dysuria Musculoskeletal: Denies myalgias no difficulty with ambulation Skin: No rash Neurological: No memory loss, confusion or any focal weakness Psych: No recent behavioral changes Hematologic: No easy bleeding or easy bruising EXAM Physical Exam Narrative Exam Narrative: Physical exam General: Well nourished, Well developed, No Acute Distress Head: Normocephalic, Atraumatic Eyes: Conjunctiva not pale ENT: Moist mucous membranes. No signs of dehydration Neck: Supple, Nontender, No lymphadenopathy Cardiovascular: Irregular tachycardia Respiratory: No distress, CTA bilaterally Abdomen: Soft, Nontender, Nondistended Back: Nontender, Normal Inspection. Negative for: CVA tenderness Extremities: Nontender, No edema Skin: Normal color, No rash Neurological: Alert, Normal Strength, Normal Sensation Psychological: Normal affect Const Vital Signs: 01/15/22 11:31 01/15/22 11:37 Temperature 98.3 F Temperature Source Temporal Pulse Rate 83 Respiratory Rate 14 Respiratory Effort Short of Breath Blood Pressure 104/79 Blood Pressure Mean 87 Pulse Ox 96 Oxygen Delivery Method Room Air MDM MDM MDM Narrative Medical decision making narrative: Patient has a normal work-up, her symptoms are chronic they are likely related to her ongoing A. fib, she is to follow-up with her zoology professor for further work-up if anything changes they are to return. I discussed with her home health care ECF placement and others and she does not wish any of these at this time. Her daughter is with her who will help at home. Lab Data Labs: Laboratory Results - last 24 hr 01/15/22 01/15/22 01/15/22 11:47 11:47 11:47 WBC 6.0 RBC 4.02 L Hgb 10.1 L Hct 32.9 L MCV 81.8 MCH 25.1 L MCHC 30.7 L RDW Std Deviation 45.2 H RDW Coeff of Jessica 15.2 H Plt Count 236 MPV 10.8 Immature Gran % (Auto) 0.200 Neut % (Auto) 64.4 Lymph % (Auto) 22.0 [place] % (Auto) 11.6 H Eos % (Auto) 1.3 Baso % (Auto) 0.5 Absolute Neuts (auto) 3.9 Absolute Lymphs (auto) 1.33 Nucleated RBC % 0 PT 15.6 H INR 1.3 Sodium 140 Potassium 3.6 Chloride 105 Carbon Dioxide 28.0 Anion Gap 7 BUN 21 H Creatinine 1.50 H Estim Creat Clear Calc 28.41 Est GFR (MDRD) Af Amer 44 L Est GFR (MDRD) Non-Af 36 L BUN/Creatinine Ratio 14.0 Glucose 129 H Calcium 8.6 Total Bilirubin 0.50 AST 21 ALT 31 Alkaline Phosphatase 95 Troponin I High Sens 9 B-Natriuretic Peptide Total Protein 6.6 Albumin 3.2 Globulin 3.4 Albumin/Globulin Ratio 0.9 TSH 2.11 01/15/22 11:47 WBC RBC Hgb Hct MCV MCH MCHC RDW Std Deviation RDW Coeff of Jessica Plt Count MPV Immature Gran % (Auto) Neut % (Auto) Lymph % (Auto) [place] % (Auto) Eos % (Auto) Baso % (Auto) Absolute Neuts (auto) Absolute Lymphs (auto) Nucleated RBC % PT INR Sodium Potassium Chloride Carbon Dioxide Anion Gap BUN Creatinine Estim Creat Clear Calc Est GFR (MDRD) Af Amer Est GFR (MDRD) Non-Af BUN/Creatinine Ratio Glucose Calcium Total Bilirubin AST ALT Alkaline Phosphatase Troponin I High Sens B-Natriuretic Peptide 218.0 H Total Protein Albumin Globulin Albumin/Globulin Ratio TSH Radiography Diagnostic Testing: Clinical Impression(s) from Imaging Studies Chest X-Ray 01/15/22 11:55 IMPRESSION: Status post CABG. Mild cardiomegaly. Moderate sized hiatal hernia. Electronically Signed: Geoffrey Lezama MD at 12:21 EDT , X-ray read by me and radiologist does not show any infiltrates. There is some cardiomegaly. Discharge Plan Triage Chief Complaint: Chest Pain ED Provider: Olu Shi Dx/Rx/DC Orders Clinical Impression: Weakness, Atrial fibrillation Instructions: ED AFIB Prescriptions: No Action metoprolol tartrate 25 mg tablet 25 mg PO BID Qty: 60 RF: 11 levothyroxine 112 MCG tablet 112 mcg PO DAILY RF: 0 budesonide 3 MG capsule,delayed,extend.release 9 mg PO DAILY RF: 0 omeprazole 40 MG capsule,delayed release(DR/EC) 40 mg PO DAILY RF: 0 aspirin 81 MG tablet,chewable 81 mg PO DAILY RF: 0 sertraline 50 MG tablet 50 mg PO DAILY RF: 0 famotidine [Pepcid] 20 mg Tablet 20 mg PO DAILY RF: 0 cholestyramine (with sugar) [Questran] 4 gram powder in packet 1 ea PO TID RF: 0 prednisone 20 mg Tablet 20 mg PO DAILY RF: 0 benzonatate [Tessalon Perles] 100 mg Capsule 100 mg PO TID PRN (Reason: Cough) RF: 0 nitroglycerin [Nitrostat] 0.4 mg Tablet, Sublingual 0.4 mg SUBLINGUAL Q5M PRN (Reason: chest pain) RF: 0 ondansetron 4 mg tablet,disintegrating 4 mg PO Q8H PRN PRN (Reason: Nausea) Qty: 10 RF: 0 atorvastatin 20 mg tablet 20 mg PO DAILY Qty: 90 RF: 3 lisinopril 20 mg tablet 20 mg PO DAILY Qty: 90 RF: 3 apixaban 5 mg tablet 5 mg PO BID Qty: 60 RF: 11 furosemide 40 mg tablet See Rx Instructions .ROUTE .COMPLEX Qty: 28 RF: 11 Primary Care Provider: Bal Benz Referrals: Olu Vera MD [STAFF PHYSICIAN] - 2 Days Bal Benz [Primary Care Provider] - Disposition Disposition: Home, Self Care
--- NOTE | 2022-01-15 11:55 | RAD_ITS ---
STUDY: X-RAY CHEST REASON FOR EXAM: Female, 76 years old. Sob TECHNIQUE: Single AP portable view of the chest. COMPARISON: Comparison is made with prior study 05/07/2001. FINDINGS: EKG electrodes are seen. The lungs are clear and expanded. There is no demonstrated pleural abnormality. Sternal cerclage wires and vascular clips are present from a prior sternotomy and coronary artery bypass graft procedure (CABG). Mild cardiomegaly. Normal mediastinum and ale. Normal visualized pulmonary arteries. Normal visualized aortic arch and descending thoracic aorta. Normal visualized thoracic spine. Normal visualized ribs, clavicles, and shoulders. Moderate sized hiatal hernia. RAD/Chest 1 View (Portable) IMPRESSION: Status post CABG. Mild cardiomegaly. Moderate sized hiatal hernia. Electronically Signed: Geoffrey Lezama MD at 12:21 EDT ,
[2022-01-15 11:58] LABS: Absolute Lymphocyte Count 1.33 X10^3/uL (0.83-4.51); Absolute Neutrophil Count 3.9 X10^3/uL (2.0-7.7); Basophil# 0.03 X10^3/uL; Basophil% 0.5 % (0-1); Eosinophil# 0.08 X10^3/uL; Eosinophils% 1.3 % (0-5); Hematocrit 32.9 % (37-47); Hemoglobin 10.1 g/dL (12.0-15.0); Lymphocyte # 1.33 X10^3/ul (0.83-4.51); Mean Corp Hgb Conc 30.7 g/dL (32-36); Mean Corpuscular Hgb 25.1 pg (27.0-32.0); Mean Corpuscular Volume 81.8 fL (81-99); Mean Platelet Vol. 10.8 fl (6.2-12.0); Monocyte% 11.6 % (0-10); NRBC Flagged by Analyzer 0 % (0-5); Neutrophil # 3.89 X10^3/uL (2.7-7.7); Neutrophil % 64.4 % (47-70); Platelet Count 236 K/mm3 (150-450); RBC Distribution Width CV 15.2 % (11.6-14.6); RBC Distribution Width SD 45.2 fl (35.1-43.9); Red Blood Count 4.02 M/mm3 (4.2-5.4)
[2022-01-15 12:20] LABS: International Normalized Ratio 1.3; Prothrombin Time (Protime)PT. 15.6 SECONDS (11.7-14.9)
[2022-01-15 12:21] LABS: ALB/GLOB Ratio 0.9 RATIO (0.9-2.4); AST(SGOT) 21 U/L (15-37); Alanine Aminotransfer ALT/SGPT 31 U/L (13-56); Albumin, Serum 3.2 g/dL (3.2-5.0); Alkaline Phosphatase 95 U/L (45-117); Anion Gap 7 (5-15); BUN 21 mg/dL (7-18); Calcium,Total 8.6 mg/dL (8.5-10.1); Chloride 105 mmol/L (98-107); EST Glomerular Filtration Rate 36 mL/min (>60); Est Glom Filt Rate - Afr Amer 44 mL/min (>60); Estimated Creatinine Clearance 28.41 ml/min; Globulin 3.4 g/dL (2.2-4.2); Glucose 129 mg/dL (74-106); Potassium 3.6 mmol/L (3.5-5.1); Protein, Total 6.6 g/dL (6.4-8.2); Sodium Level 140 mmol/L (136-145); Thyroid Stim Hormone (TSH) 2.11 uIU/mL (0.358-3.74); Troponin-I HS 9 pg/mL (3.0-54.0)
[2022-01-15 14:03] VITALS: BP 125/94; PULSE 97; RESP 16; TEMP 37.2
== END 2022-01-15 14:08 | disposition home or self-care (01) ==
PROVIDERS: Emergency Provider Emergency Medicine; Visit Provider Emergency Medicine
DX: I48.91 Unspecified atrial fibrillation (principal); G30.9 Alzheimer's disease, unspecified; F02.80 Dementia in other diseases classified elsewhere, unspecified severity, without behavioral disturbance, psychotic disturbance, mood disturbance, and anxiety; E78.5 Hyperlipidemia, unspecified; E78.00 Pure hypercholesterolemia, unspecified; R53.1 Weakness; I25.10 Atherosclerotic heart disease of native coronary artery without angina pectoris; I10 Essential (primary) hypertension; E03.9 Hypothyroidism, unspecified; Z95.1 Presence of aortocoronary bypass graft; F41.9 Anxiety disorder, unspecified; R06.02 Shortness of breath
CPT/HCPCS: 71045; 80053; 83880; 84443; 84484; 85025; 85610; 93005; 99283; A4216

== ENCOUNTER → 2022-02-14 | Outpatient (CLI) | payer MEDICARE, MEDICAID, SELFPAY ==
--- NOTE | 2022-02-14 09:57 | ECHOD_ITS ---
Reason For Study: ATRIAL FIB FLUTTER Procedure This was a 2D Doppler, Color Flow transthoracic echocardiogram. The study was technically difficult. Exam performed in department. Left Ventricle Left ventricular systolic function is normal. The estimated ejection fraction is 60 %. No regional wall motion abnormalities noted. Right Ventricle Normal RV size. Normal systolic function. Atria The left atrium is severely enlarged. The right atrium is mildly enlarged. No doppler evidence for ASD. Mitral Valve There is mild mitral annular calcification. Extension of the mitral minor calcification on the base of the posterior mitral valve leaflet. Moderate (2+) mitral valve insufficiency. Tricuspid Valve Normal tricuspid valve. Mild to moderate (1-2+) tricuspid valve insufficiency. Right ventricular systolic pressure estimated to be 38 mmHg. Aortic Valve Trisinus/trileaflet aortic valve. Normal aortic valve. Trivial aortic valve insufficiency. Pulmonic Valve The pulmonic valve is not well visualized. Mild (1+) pulmonic valve insufficiency. Great Vessels The aortic root is not well visualized. Pericardium/Pleural No pericardial effusion. MMode/2D Measurements & Calculations RVDd: 4.6 cm LAV(MOD-bp): 89.8 ml LVAd ap4: 24.4 cm2 LAV(MOD-bp) Indexed: 41.7 ml/m2 LVLd ap4: 6.0 cm LAV(MOD-sp2): 94.3 ml EDV(MOD-sp4): 81.5 ml LAV(MOD-sp4): 85.8 ml EDV(sp4-el): 83.7 ml LVAs ap4: 13.8 cm2 LVLs ap4: 4.9 cm ESV(MOD-sp4): 34.8 ml ESV(sp4-el): 33.2 ml EF(MOD-sp4): 57.3 % EF(sp4-el): 60.4 % LVAd ap2: 27.0 cm2 SV(MOD-sp4): 46.7 ml SV(MOD-sp2): 65.6 ml LVLd ap2: 6.1 cm EDV(MOD-sp2): 96.5 ml EDV(sp2-el): 100.9 ml LVAs ap2: 13.5 cm2 LVLs ap2: 5.0 cm ESV(MOD-sp2): 30.9 ml ESV(sp2-el): 30.7 ml EF(MOD-sp2): 68.0 % SV(sp4-el): 50.5 ml LA A4 area: 27.1 cm2 RA A4 area: 19.8 cm2 Doppler Measurements & Calculations MV E max ivan: 114.3 cm/sec Lat Peak E' Ivan: 4.6 cm/sec Med Peak E' Ivan: 5.7 cm/sec MV A max ivan: 46.4 cm/sec E/E' lat: 24.6 E/E' med: 20.1 MV E/A: 2.5 Ao V2 max: 151.5 cm/sec AI max ivan: 211.7 cm/sec LV V1 max: 87.5 cm/sec Ao max P.2 mmHg AI max P.0 mmHg LV V1 max P.1 mmHg AI dec slope: 115.5 cm/sec2 AI P1/2t: 536.9 msec MR max ivan: 486.4 cm/sec PA V2 max: 104.0 cm/sec TR max ivan: 297.1 cm/sec MR max P.1 mmHg TR max P.3 mmHg ECHO/Echo Complete Interpretation Summary The study was technically difficult. Left ventricular systolic function is normal. The estimated ejection fraction is 60 %. The left atrium is severely enlarged. The right atrium is mildly enlarged. There is mild mitral annular calcification. Extension of the mitral minor calcification on the base of the posterior mitral valve leaflet. Moderate (2+) mitral valve insufficiency. Mild to moderate (1-2+) tricuspid valve insufficiency. Trivial aortic valve insufficiency. Mild (1+) pulmonic valve insufficiency. Right ventricular systolic pressure estimated to be 38 mmHg. Transmitral diastolic flow velocities suggest diastolic dysfunction (pseudonorm al pattern). Ordering Physician: Olu Vera Referring Physician: Olu Vera Performed By: Lalitha Del Angel RCS
== END | disposition home or self-care (01) ==
LOC: CVS 09:55
PROVIDERS: Referring Provider Internal Medicine Cardiovascular Disease; Visit Provider Internal Medicine Cardiovascular Disease
DX: I25.10 Atherosclerotic heart disease of native coronary artery without angina pectoris (principal); I48.0 Paroxysmal atrial fibrillation; R55 Syncope and collapse; Z95.1 Presence of aortocoronary bypass graft; I10 Essential (primary) hypertension; E78.5 Hyperlipidemia, unspecified
CPT/HCPCS: 93306

== ENCOUNTER 2022-03-09 08:58 | Inpatient (IN) | payer MEDICARE, MEDICAID, SELFPAY ==
[2022-03-09] VITALS (8 sets, daily range): BP systolic 104–140; BP diastolic 57–72; PULSE 71–88; RESP 14–20; TEMP 36.9–37.5; O2SAT 92–99; BMI 42.3; BMI 41.1
--- NOTE | 2022-03-09 09:09 | EKG12_ITS ---
Test Reason : Blood Pressure : / mmHG Vent. Rate : 086 BPM Atrial Rate : 086 BPM P-R Int : 172 ms QRS Dur : 098 ms QT Int : 378 ms P-R-T Axes : 014 012 113 degrees QTc Int : 452 ms Normal sinus rhythm ST & T wave abnormality, consider lateral ischemia Abnormal ECG Confirmed by MAXIM TIRADO, SHARRON ([id number]), legal editor ENEIDA FREED ([id number]) on 03/13/2022 10:11:35 AM Referred By: Confirmed By:SHARRON PAN MD
--- NOTE | 2022-03-09 09:09 | VDLE_ITS ---
Reason For Study: Swelling RIGHT GSV is normal. CFV is compressible, spontaneous, phasic, competent and demonstrates normal augmentation. FV is compressible, spontaneous, phasic, competent and demonstrates normal augmentation. POP V is compressible, spontaneous, phasic, competent and demonstrates normal augmentation. T/P Trunk is compressible. PTV is compressible. RT PerV is compressible. Procedure This is a venous duplex using B-mode, color flow and spectral Doppler. Exam performed portable in ED. A preliminary report was called and/or faxed to [facility]. VL/Venous Duplex US, Unilateral Interpretation Summary There is no evidence of right lower extremity deep vein thrombosis. Right great saphenous vein appears patent and compressible segmentally. Ordering Physician: Micah Montiel Referring Physician: Bal Benz Performed By: Elif Pham RVT
--- NOTE | 2022-03-09 09:10 | ED.VIS.LOWEX ---
HPI History of Present Illness Chief Complaint: Lower Extremity Injury Detail of Chief Complaint: Atraumatic right lower leg pain and swelling. No injury. Occured/Mechanism Mechanism/Context: No injury Onset/Context/Timing Onset: Yesterday Context: Gradual Onset Timing: Continuous Quality of Pain: Dull and Aching Current Severity: Mild Maximum Severity: Mild Associated Symptoms Associated Symptoms: Negative for Parasthesia, Weakness or Loss of Funtion Narrative Narrative: 76-year-old female history of anxiety, coronary disease and prior CABG and history of A. fib. On Saturday was at [facility] and was admitted overnight she had an ablation procedure for A. fib. Typically is on the blood thinner Eliquis. She was discharged from the hospital yesterday. Daughter who is one of her caregivers stated she has developed pain and swelling and redness in her right lower leg. No history of DVT or PE. Prior similar symptoms: No Recent Illness/Hospitalization: No PFSH PFSH Medical History Alzheimer's dementia Anxiety Atherosclerosis of coronary artery of [place] heart without angina pectoris Essential (primary) hypertension GERD (gastroesophageal reflux disease) HLD (hyperlipidemia) Hypothyroidism Obesity (BMI 30-39.9) Paroxysmal atrial fibrillation Pseudoseizures Syncope Home Medications levothyroxine 112 mcg tablet 112 mcg PO DAILY thyroid 07/19/17 [History Last Taken 11/30/20] aspirin 81 mg chewable tablet 81 mg PO DAILY health maintenance 06/08/20 [History Last Taken 06/08/20] budesonide 3 mg capsule,delayed,extended release 9 mg PO DAILY asthma 06/08/20 [History Last Taken 11/30/20] omeprazole 40 mg capsule,delayed release 40 mg PO DAILY gerd 06/08/20 [History Last Taken 11/30/20] sertraline 50 mg tablet 50 mg PO DAILY DEPRESSION 11/30/20 [History Last Taken 11/30/20] cholestyramine (with sugar) 4 gram powder for susp in a packet (Questran) 1 ea PO TID 04/09/21 [History Last Taken Unknown] famotidine 20 mg tablet (Pepcid) 20 mg PO DAILY 04/09/21 [History Last Taken Unknown] benzonatate 100 mg capsule (Tessalon Perles) 100 mg PO TID PRN Cough 05/07/21 [History Last Taken Unknown] nitroglycerin 0.4 mg sublingual tablet (Nitrostat) 0.4 mg sublingual Q5M PRN chest pain 05/07/21 [History Last Taken Unknown] ondansetron 4 mg disintegrating tablet 4 mg PO Q8H PRN PRN Nausea #10 tabs 05/07/21 [Rx Last Taken Unknown] prednisone 20 mg tablet 20 mg PO DAILY 05/07/21 [History Last Taken Unknown] atorvastatin 20 mg tablet 20 mg PO DAILY #90 tabs 05/10/21 [Rx Last Taken Unknown] apixaban 5 mg tablet 5 mg PO BID BLOOD THINNER #60 tabs 06/09/21 [Rx Last Taken Unknown] furosemide 40 mg tablet See Rx Instructions .Route .COMPLEX #28 TABLETS 09/07/21 [Rx Last Taken Unknown] metoprolol tartrate 25 mg tablet 25 mg PO BID #60 TABLETS 01/01/22 [Rx Last Taken Unknown] lisinopril 10 mg tablet 10 mg PO DAILY BP #90 tabs 01/17/22 [Rx Last Taken Unknown] Allergy/AdvReac Type Severity Reaction Status Date / Time NOVACAINE AdvReac ELEVATED Uncoded 03/09/22 08:59 BLOOD PRESSURE Family History Mother Heart disease Father Heart disease Surgical History H/O coronary artery bypass surgery (01/29/08) History of left heart catheterization (01/12/19) Social History Smoking Status: Never smoker alcohol intake: never caffeine: Yes Type: coffee Number of servings: 6 ROS ROS ED ROS Narrative No recent illness. Review of Systems ROS Unobtainable: Denies due to encephalopathy Constitutional Constitutional ED: Denies chills Eyes Eyes: Denies blurry vision ENT ENT ED: Denies ear pain Cardiovascular Cardiovascular: Denies chest pain Respiratory/Chest Respiratory/Chest: Denies cough Gastrointestinal Gastrointestinal: Denies abdominal pain Genitourinary Genitourinary ED: Denies dysuria Musculoskeletal Musculoskeletal: Denies arthralgias Integumentary Reports rash; Denies abscess Neurologic Neurologic: Denies headache(s) Psychiatric Psychiatric: Denies anxiety Endocrine Endocrinology: Denies polydipsia Hematologic/Lymphatic Hematologic/Lymphatic: Denies easy bleeding Allergic/Immunologic Allergic/Immunologic ED: Denies mouth swelling EXAM Physical Exam Narrative Exam Narrative: 76-year-old female vital signs are stable afebrile. She does not look septic or toxic. Her pulse ox 90% on room air no hypoxia. H EENT exam unremarkable mildly dry mucous members. Neck nontender no JVD. No lymphadenopathy. Lungs clear to auscultation bilaterally. Heart regular rhythm rate about 90 no murmur. Chest were nontender. Abdomen soft nontender. Obese. Moving all 4 extremities. 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 Dorsi plantarflexion intact. Right lower leg from the knee down to the ankle is red. Tender. Appears cellulitic. There is calf pain. There is mild swelling. Dorsi and plantar flexion intact bilaterally. Back exam nontender. Neurologically she is awake and alert. Moving all 4 extremities. Const Vital Signs: 03/09/22 08:59 03/09/22 09:01 03/09/22 10:23 Temperature 99.5 F H Temperature Source Temporal Pulse Rate 87 88 77 Respiratory Rate 18 17 20 H Blood Pressure 119/61 121/65 H 119/57 L Blood Pressure Mean 80 83 77 Pulse Ox 92 94 92 Oxygen Delivery Method Room Air Room Air Room Air Positive well nourished, well developed and obese; Negative for cachectic, contractures or unkempt General Appearance ED: well developed; Negative for unkempt, cachectic or contractures Nutritional Appearance: obese; Negative for cachectic HEENT Denies moist mucous membranes normocephalic and atraumatic; Negative for trauma or tenderness Eyes PERRL Neck full ROM and supple Thyroid: Negative for tender Lymph Lymphatic: Negative for other Chest Wall inspection of chest normal and palpation of chest normal Resp normal respiratory effort, no retractions and clear to auscultation bilaterally Auscultation: Negative for rales, rhonchi or wheezes Cardio regular rate, regular rhythm, S1 normal heart sound, S2 normal heart sound and no murmurs Rate: Negative for bradycardia Rhythm: Negative for abnormal rhythm GI non-tender, non-distended and no masses Inspection: Negative for abdominal distention Auscultation: normoactive bowel sounds Palpation: soft; Negative for tender, guarding or rebound tenderness present Back/Spine no CVA tenderness General Back: Negative for CVA tenderness or swelling Cervical Spine: Negative for cervical spine tenderness Thoracic Spine / Upper Back: Negative for thoracic spinal tenderness Lumbar Spine / Lower Back: Negative for lumbar spinal tenderness Extremity full ROM; Negative for normal to inspection Extremity Narrative: Right lower leg red, swollen and tender. Both anteriorly and in the calf. This may be cellulitis versus a possible DVT. General Extremety ED: Yes edema; Negative for cyanosis General Extremity: edema; Negative for cyanosis Neuro moves all extremities Sensorium / Orientation: alert and oriented to person Motor Exam: strength 5/5 throughout Psych Appearance: Negative for unkempt Skin no wounds Skin Narrative: Right lower leg redness. Lesions: no lesions Rashes: No no rashes MDM MDM MDM Narrative Medical decision making narrative: 76-year-old status post recent ablation procedure done at [facility]. Complaining of lower leg pain, redness and swelling. DVT versus cellulitis most likely. Ultrasound and labs are pending. Repeat exam patient doing well. Discussed with both her and her daughter. She will be started on IV Unasyn. I will speak to the hospitalist about admission. Lab Data Attestation: I reviewed the patient's lab results. Lab results narrative: CBC shows a white count 11.9. H&H is 7.7 and 25.5. Platelets of 191. Electrolytes sodium 135 gap is 7 BUN of 15 creatinine 1.3. Liver enzymes unremarkable. Venous study of the lower extremity shows no clot. Her anemia is significantly worse than what it was in January when her hemoglobin was 10 and prior to that was 13. She has noticed no rectal bleeding or melena. Ultrasound of the leg showed no DVT. Labs: Laboratory Results - last 24 hr 03/09/22 03/09/22 09:20 09:20 WBC 11.9 H RBC 3.30 L Hgb 7.7 L Hct 25.5 L MCV 77.3 L MCH 23.3 L MCHC 30.2 L RDW Std Deviation 43.8 RDW Coeff of Jessica 15.9 H Plt Count 191 MPV 10.5 Immature Gran % (Auto) 0.400 Neut % (Auto) 85.1 H Lymph % (Auto) 7.9 L [place] % (Auto) 6.3 Eos % (Auto) 0.1 Baso % (Auto) 0.2 Absolute Neuts (auto) 10.1 H Absolute Lymphs (auto) 0.94 Nucleated RBC % 0 Sodium 135 L Potassium 3.5 Chloride 102 Carbon Dioxide 26.0 Anion Gap 7 BUN 15 Creatinine 1.30 H Estim Creat Clear Calc 34.16 Est GFR (MDRD) Af Amer 51 L Est GFR (MDRD) Non-Af 43 L BUN/Creatinine Ratio 11.5 Glucose 90 Calcium 8.4 L Total Bilirubin 0.90 AST 37 ALT 17 Alkaline Phosphatase 86 Total Protein 5.9 L Albumin 2.6 L Globulin 3.3 Albumin/Globulin Ratio 0.8 L Radiography Diagnostic Testing: Clinical Impression(s) from Imaging Studies Venous Doppler Study 03/09/22 09:09 Interpretation Summary There is no evidence of right lower extremity deep vein thrombosis. Right great saphenous vein appears patent and compressible segmentally. Ordering Physician: Micah Montiel Referring Physician: Bal Benz Performed By: Elif Pham RVT Rhythm Strip Rhythm Strip: Sinus Rhythm Rate: 86 Ectopy: None EKG Initial EKG: Attestation: I personally reviewed and interpreted this EKG as follows: Interpretation: Sinus Rhythm and No Acute Injury Pattern Comments: Normal sinus rhythm rate 86 no acute signs of [place]. Discharge Plan Triage Chief Complaint: Lower Extremity Injury ED Provider: Micah Montiel Dx/Rx/DC Orders Prescriptions: No Action metoprolol tartrate 25 mg tablet 25 mg PO BID Qty: 60 11RF lisinopril 10 mg tablet 10 mg PO DAILY Qty: 90 3RF levothyroxine 112 MCG tablet 112 mcg PO DAILY budesonide 3 MG capsule,delayed,extend.release 9 mg PO DAILY omeprazole 40 MG capsule,delayed release(DR/EC) 40 mg PO DAILY aspirin 81 MG tablet,chewable 81 mg PO DAILY sertraline 50 MG tablet 50 mg PO DAILY famotidine [Pepcid] 20 mg Tablet 20 mg PO DAILY cholestyramine (with sugar) [Questran] 4 gram powder in packet 1 ea PO TID prednisone 20 mg Tablet 20 mg PO DAILY benzonatate [Tessalon Perles] 100 mg Capsule 100 mg PO TID PRN (Reason: Cough) nitroglycerin [Nitrostat] 0.4 mg Tablet, Sublingual 0.4 mg SUBLINGUAL Q5M PRN (Reason: chest pain) ondansetron 4 mg tablet,disintegrating 4 mg PO Q8H PRN PRN (Reason: Nausea) Qty: 10 0RF atorvastatin 20 mg tablet 20 mg PO DAILY Qty: 90 3RF apixaban 5 mg tablet 5 mg PO BID Qty: 60 11RF Rx Instructions: TAKE 1 TABLET BY MOUTH TWICE A DAY furosemide 40 mg tablet See Rx Instructions .ROUTE .COMPLEX Qty: 28 11RF Dose Instruction: TAKE 1 TABLET BY MOUTH DAILY Rx Instructions: TAKE 1 TABLET BY MOUTH DAILY Primary Care Provider: Bal Benz Referrals: Bal Benz [Primary Care Provider] -
[2022-03-09 09:27] LABS: Absolute Lymphocyte Count 0.94 X10^3/uL (0.83-4.51); Absolute Neutrophil Count 10.1 X10^3/uL (2.0-7.7); Basophil# 0.02 X10^3/uL; Basophil% 0.2 % (0-1); Eosinophil# 0.01 X10^3/uL; Eosinophils% 0.1 % (0-5); Hematocrit 25.5 % (37-47); Hemoglobin 7.7 g/dL (12.0-15.0); Lymphocyte # 0.94 X10^3/ul (0.83-4.51); Lymphocyte % 7.9 % (19-41); Mean Corp Hgb Conc 30.2 g/dL (32-36); Mean Corpuscular Hgb 23.3 pg (27.0-32.0); Mean Corpuscular Volume 77.3 fL (81-99); Mean Platelet Vol. 10.5 fl (6.2-12.0); Monocyte# 0.75 X10^3/uL; Monocyte% 6.3 % (0-10); NRBC Flagged by Analyzer 0 % (0-5); Neutrophil # 10.14 X10^3/uL (2.7-7.7); Neutrophil % 85.1 % (47-70); Platelet Count 191 K/mm3 (150-450); RBC Distribution Width CV 15.9 % (11.6-14.6); RBC Distribution Width SD 43.8 fl (35.1-43.9); White Blood Count 11.9 K/mm3 (4.4-11.0)
[2022-03-09 09:43] LABS: ALB/GLOB Ratio 0.8 RATIO (0.9-2.4); AST(SGOT) 37 U/L (15-37); Alanine Aminotransfer ALT/SGPT 17 U/L (13-56); Albumin, Serum 2.6 g/dL (3.2-5.0); Alkaline Phosphatase 86 U/L (45-117); Anion Gap 7 (5-15); BUN 15 mg/dL (7-18); BUN/Creat Ratio 11.5 RATIO (10-20); Calcium,Total 8.4 mg/dL (8.5-10.1); Chloride 102 mmol/L (98-107); EST Glomerular Filtration Rate 43 mL/min (>60); Est Glom Filt Rate - Afr Amer 51 mL/min (>60); Estimated Creatinine Clearance 34.16 ml/min; Globulin 3.3 g/dL (2.2-4.2); Glucose 90 mg/dL (74-106); Potassium 3.5 mmol/L (3.5-5.1); Protein, Total 5.9 g/dL (6.4-8.2); Sodium Level 135 mmol/L (136-145)
--- NOTE | 2022-03-09 11:41 | NURSING ---
MED SURG OBS JOSE J CELLULITIS RIGHT LOWER LEG, ANEMIA, ANTICOAGULATED
--- NOTE | 2022-03-09 13:09 | HP.PCM.HOS_ITS ---
Documented by User: Martina Purcell NP, [employer]IC[employer] APPRENTICE-C 03/09/22 13:43 HPI - General General Date of Admission: 03/09/22 Date of Service: 03/09/22 Chief Complaint: Weakness, right lower extremity redness. HPI Narrative HA GARAY, is a 76 F who presents to the emergency room due to weakness, poor oral intake and right lower extremity redness. Patient is a poor informant. The daughter at bedside states patient had ablation for A. fib at [facility] on Saturday. She was discharged home the next day and daughter states it took 3 siblings to ambulate patient. Patient had not been eating or drinking. Patient reports intermittent cough. Denies fever, chills. Reports mild sore throat. Denies diarrhea, nausea, vomiting. Denies urinary symptoms. Denies injury to right lower extremity. Reports some mild right lower extremity discomfort as well as redness. No noted wound. Patient lives alone and daugh ter states patient has memory problems. Daughter denies any known falls at home or injury. Denies known history of GI bleed. No known blood in stool or dark stools. Per records, patient has a past medical history of atrial fibrillation with recently stated ablation, chronic kidney disease stage IIIb, history of collagenous colitis, CAD, hypertension, hyperlipidemia, history of pseudoseizure and cognitive impairment. [facility] Medical History (Updated 03/09/22 @ 16:[address] Myrna Chan, DO) Alzheimer's dementia Anxiety Atherosclerosis of coronary artery of [place] heart without angina pectoris Essential (primary) hypertension GERD (gastroesophageal reflux disease) HLD (hyperlipidemia) Hypothyroidism Obesity (BMI 30-39.9) Paroxysmal atrial fibrillation Pseudoseizures Stage 3b chronic kidney disease (CKD) Syncope Medical History unable to obtain Home Medications levothyroxine 112 mcg tablet 112 mcg PO DAILY thyroid 07/19/17 [History Last Ta willard 11/30/20] aspirin 81 mg chewable tablet 81 mg PO DAILY health maintenance 06/08/20 [History Last Taken 06/08/20] budesonide 3 mg capsule,delayed,extended release 9 mg PO DAILY asthma 06/08/20 [History Last Taken 11/30/20] omeprazole 40 mg capsule,delayed release 40 mg PO DAILY gerd 06/08/20 [History Last Taken 11/30/20] sertraline 50 mg tablet 50 mg PO DAILY DEPRESSION 11/30/20 [History Last Taken 11/30/20] cholestyramine (with sugar) 4 gram powder for susp in a packet (Questran) 1 ea PO TID 04/09/21 [History Last Taken Unknown] famotidine 20 mg tablet (Pepcid) 20 mg PO DAILY 04/09/21 [History Last Taken Unknown] benzonatate 100 mg capsule (Tessalon Perles) 100 mg PO TID PRN Cough 05/07/21 [History Last Taken Unknown] nitroglycerin 0.4 mg sublingual tablet (Nitrostat) 0.4 mg sublingual Q5M PRN chest pain 05/07/21 [History Last Taken Unknown] ondansetron 4 mg disintegrating tablet 4 mg PO Q8H PRN PRN Nausea #10 tabs 05/07/21 [Rx Last Taken Unknown] prednisone 20 mg tablet 20 mg PO DAILY 05/07/21 [History Last Taken Unknown] atorvastatin 20 mg tablet 20 mg PO DAILY #90 tabs 05/10/21 [Rx Last Taken Unknown] apixaban 5 mg tablet 5 mg PO BID BLOOD THINNER #60 tabs 06/09/21 [Rx Last Taken Unknown] furosemide 40 mg tablet See Rx Instructions .Route .COMPLEX #28 TABLETS 09/07/21 [Rx Last Taken Unknown] metoprolol tartrate 25 mg tablet 25 mg PO BID #60 TABLETS 01/01/22 [Rx Last Take n Unknown] lisinopril 10 mg tablet 10 mg PO DAILY BP #90 tabs 01/17/22 [Rx Last Taken Unknown] Allergy/AdvReac Type Severity Reaction Status Date / Time procaine [From Novocain] AdvReac Other Verified 03/09/22 11:21 Family History Mother Heart disease Father Heart disease Surgical History H/O cardiac radiofrequency ablation H/O coronary artery bypass surgery (01/29/08) History of left heart catheterization (01/12/19) Social History household members: none Smoking Status: Never smoker alcohol intake: never substance use type: does not use caffeine: Yes Type: coffee Number of servings: 6 ROS Constitutional Constitutional: Reports fatigue, malaise, weakness and other Details: Poor shahid etite/oral intake ; Denies change in weight, chills or fever(s) ENT HEENT: Reports sore throat Cardiovascular Cardiovascular: Denies chest pain, lightheadedness, palpitations or syncope Respiratory/Chest Respiratory/Chest: Reports cough; Denies dyspnea, productive cough, shortness of breath at rest, shortness of breath with exertion or wheezing Gastrointestinal Gastrointestinal: Denies abdominal pain, constipation, diarrhea, nausea or vomiting Genitourinary Genitourinary: Denies burning urination, difficulty urinating, dysuria, hematuria, urinary frequency, urinary incontinence or urinary urgency Musculoskeletal Musculoskeletal: Denies back pain, joint pain or muscle weakness Integumentary Integumentary: Reports erythema and other Details: RLE warmth and erythema ; Denies lesions, rash or wounds Neurologic Neurologic: Denies abnormal speech, confusion, dizziness, focal weakness, numbness, paresthesias, seizure-like activity or syncope Psychiatric Psychiatric: Denies anxiety or depression Hematologic/Lymphatic Hematologic/Lymphatic: Denies anemia, easy bleeding or easy bruising Allergic/Immunologic Allergic/Immunologic: Denies hives or asthma Vital Signs Vital Signs Vital Signs: 03/09/22 08:59 03/09/22 09:01 03/09/22 10:23 Temperature 99.5 F H Temperature Source Temporal Pulse Rate 87 88 77 Respiratory Rate 18 17 20 H Blood Pressure 119/61 121/65 H 119/57 L Blood Pressure Mean 80 83 77 Blood Pressure Source Blood Pressure Position Blood Pressure Location Pulse Ox 92 94 92 Oxygen Delivery Method Room Air Room Air Room Air 03/09/22 11:39 03/09/22 12:57 Temperature 98.7 F 98.7 F Temperature Source Oral Oral Pulse Rate 71 72 Respiratory Rate 14 18 Blood Pressure 104/57 L 131/58 H Blood Pressure Mean 72 82 Blood Pressure Source Monitor Blood Pressure Position Semi-Fowlers Blood Pressure Location Right Arm Pulse Ox 97 99 Oxygen Delivery Method Room Air Room Air Weight Weight: 246 lb 14.684 oz Body Mass Index (BMI) 41.1 Physical Exam Const alert Orientation / Consciousness: awake, oriented to person and oriented to place HEENT normocephalic Mouth: dry mucous membranes Eyes PERRL, EOMs intact bilaterally and conjunctivae normal Neck no lymphadenopathy Resp clear to auscultation bilaterally Auscultation: diminished lung sounds Cardio regular rate, regular rhythm and no murmurs Peripheral Pulses: pulses 2+ throughout GI normal to inspection, nondistended, normoactive bowel sounds, non-tender and non-distended Extremity normal to inspection Skin no rashes or lesions noted Skin Narrative: Mild right lower extremity scattered erythema, warmth. Lesions: no lesions Rashes: no rashes Trauma: no lacerations or abrasions Neuro CN's II-XII intact bilaterally, no focal motor deficits, no sensory deficits noted and deep tendon reflexes 2+ bilaterally Psych mental status grossly normal and affect normal Results Lab / Micro Data Result Diagrams: 03/09/22 09:20 03/09/22 09:20 Labs: Laboratory Results - last 24 hr 03/09/22 09:20: WBC 11.9 H, RBC 3.30 L, Hgb 7.7 L, Hct 25.5 L, MCV 77.3 L, MCH 23.3 L, MCHC 30.2 L, RDW Std Deviation 43.8, RDW Coeff of Jessica 15.9 H, Plt Count 191, MPV 10.5, Immature Gran % (Auto) 0.400, Neut % (Auto) 85.1 H, Lymph % (Auto) 7.9 L, Whitley % (Auto) 6.3, Eos % (Auto) 0.1, Baso % (Auto) 0.2, Absolute Neuts (auto) 10.1 H, Absolute Lymphs (auto) 0.94, Nucleated RBC % 0 03/09/22 09:20: Sodium 135 L, Potassium 3.5, Chloride 102, Carbon Dioxide 26.0, Anion Gap 7, BUN 15, Creatinine 1.30 H, Estim Creat Clear Calc 34.16, Est GFR (MDRD) Af Amer 51 L, Est GFR (MDRD) Non-Af 43 L, BUN/Creatinine Ratio 11.5, Glucose 90, Calcium 8.4 L, Total Bilirubin 0.90, AST 37, ALT 17, Alkaline Phosphatase 86, Total Protein 5.9 L, Albumin 2.6 L, Globulin 3.3, Albumin/Globulin Ratio 0.8 L Rhythm Strip Rhythm Strip: Sinus Rhythm Rate: 86 Ectopy: None Radiology Impression Venous Doppler Study 03/09/22 09:09 Interpretation Summary There is no evidence of right lower extremity deep vein thrombosis. Right great saphenous vein appears patent and compressible segmentally. Ordering Physician: Micah Montiel Referring Physician: Bal Benz Performed By: Elif Pham RVJacque Assessment & Plan Assessment/Plan (1) Anemia: (2) Cellulitis: (3) Iron deficiency: PLAN: Plan 1. Possible right lower extremity cellulitis, mild leukocytosis-IV Unasyn. Obtain UA/culture, blood culture, chest x-ray to rule out other source of infection. 2. Acute microcytic anemia- no significant history of anemia. Hemoglobin January 2022 10.1 however prior hemoglobin normal. Hemoglobin at [place] facility 03/07/2022 9.1. Check stool for occult blood. Obtain iron studies. Consult GI. Patient has a reported history of collagenous colitis and is on budesonide. Recent ablation for A. fib, patient remains on Eliquis. IV PPI. 3. Weakness, debility-likely combination of #1/#2. PT/OT. Patient lives alone. Case management consult for discharge planning. 4. Atrial fibrillation with recent ablation 03/07/2022 at [place]-on Eliquis, metoprolol. 5. History of collagenous colitis-on budesonide. Prior colonoscopy November [address] Cummings. History of collagenous colitis. 6. CKD stage IIIb-at baseline. 7. CAD- on aspirin, statin, metoprolol. 8. Hypertension-stable, continue metoprolol, lisinopril. 9. Hyperlipidemia-continue statin. 10. History of pseudoseizure-Per PCP documentation. Continue outpatient follow- up. Previously on Keppra which was discontinued in 2018. Followed by [facility]. 11. History of cognitive impairment/memory concerns-Per PCP note, patient would not cooperate with [facility]. Recommended referral to neuropsych for formal cognitive assessment. 12. Hypothyroidism-continue Synthroid regimen. DVT prophylaxis-Eliquis This patient was seen by Martina Purcell NP-C under the supervision of Dr. Chan. Documented by User: Dr. Myrna Chan DO 03/09/22 16:28 HPI - General General Date of Admission: 03/09/22 HPI Narrative HA GARAY, is a 76 F who presents to the emergency room due to weakness, poor oral intake and right lower extremity redness. Patient is a poor informant. The daughter at bedside states patient had ablation for A. fib at [facility] on Saturday. She was discharged home the next day and daughter states it took 3 siblings to ambulate patient. Patient had not been eating or drinking. Patient reports intermittent cough. Denies fever, chills. Reports mild sore throat. Denies diarrhea, nausea, vomiting. Denies urinary symptoms. Denies injury to right lower extremity. Reports some mild right lower extremity discomfort as well as redness. No noted wound. Patient lives alone and daughter states patient has memory problems. Daughter denies any known falls at home or injury. Denies known history of GI bleed. No known blood in stool or dark stools. Per records, patient has a past medical history of atrial fibrillation with recently stated ablation, chronic kidney disease stage IIIb, history of collagenous colitis, CAD, hypertension, hyperlipidemia, history of pseudoseizure and cognitive impairment. This patient was seen in conjunction with Martina Purcell NP. The following represents my independent history and physical examination. Please see below for addendum the above. Mrs. Garay is a 76-year-old white female who presented to the emergency department was coming hospital for weakness, poor oral intake, and right lower extremity erythema. The patient has somewhat limited understanding of her history however she is alert and oriented x3. The patient recently had an ablation for atrial fibrillation at [place] on Saturday of this past week and was discharged the following day. The daughter indicated on presentation that it took the daughter and 3 siblings to ambulate the patient today and she is not been eating or drinking well. Overall her review of systems other than for general malaise and weakness and mild sore throat is fairly negative. Her right upper lower extremity appears mildly erythematous is warm and tender and this is new in the last 24 hours. The patient does have a wound on the dorsum of her right foot that is healing well however has some erythema around it and I suspect it is the nidus for her right lower extremity cellulitis. She states she got this while she was walking barefoot and a stick scraped her foot. Vital signs upon presentation the emergency department showed a temperature of 99.5, heart rate of 87, blood pressure 119/61, respiratory rate of 18, pulse ox of 92% on room air however she fluctuated between 92 and 99% on room air. CBC showed a leukocytosis with a white count of 11.9 and a left shift, hemoglobin of 7.7 which is down from January of this year at which time she was 9.1, and normal platelet count. Her chemistry panel showed mild hyponatremia with a sodium of 135 a serum creatinine of 1.30 which appears to be baseline normal liver functions. Her urine showed some leukoesterase but was negative for white cells or bacteria and had no other abnormalities. Her chest x-ray shows hyperinflation but no other acute abnormality. She does have evidence of previous CABG. In the emergency department she was treated with IV Unasyn and request for admission was made. [facility] Medical History (Updated 03/09/22 @ 16:[address] Myrna Chan, ) Alzheimer's dementia Anxiety Atherosclerosis of coronary artery of [place] heart without angina pectoris Essential (primary) hypertension GERD (gastroesophageal reflux disease) HLD (hyperlipidemia) Hypothyroidism Obesity (BMI 30-39.9) Paroxysmal atrial fibrillation Pseudoseizures Stage 3b chronic kidney disease (CKD) Syncope Medical History unable to obtain Home Medications levothyroxine 112 mcg tablet 112 mcg PO DAILY thyroid 07/19/17 [History Last Taken 11/30/20] aspirin 81 mg chewable tablet 81 mg PO DAILY health maintenance 06/08/20 [History Last Taken 06/08/20] budesonide 3 mg capsule,delayed,extended release 9 mg PO DAILY asthma 06/08/20 [History Last Taken 11/30/20] omeprazole 40 mg capsule,delayed release 40 mg PO DAILY gerd 06/08/20 [History Last Taken 11/30/20] sertraline 50 mg tablet 50 mg PO DAILY DEPRESSION 11/30/20 [History Last Taken 11/30/20] cholestyramine (with sugar) 4 gram powder for susp in a packet (Questran) 1 ea PO TID 04/09/21 [History Last Taken Unknown] famotidine 20 mg tablet (Pepcid) 20 mg PO DAILY 04/09/21 [History Last Taken Unknown] benzonatate 100 mg capsule (Tessalon Perles) 100 mg PO TID PRN Cough 05/07/21 [History Last Taken Unknown] nitroglycerin 0.4 mg sublingual tablet (Nitrostat) 0.4 mg sublingual Q5M PRN chest pain 05/07/21 [History Last Taken Unknown] ondansetron 4 mg disintegrating tablet 4 mg PO Q8H PRN PRN Nausea #10 tabs 05/07/21 [Rx Last Taken Unknown] prednisone 20 mg tablet 20 mg PO DAILY 05/07/21 [History Last Taken Unknown] atorvastatin 20 mg tablet 20 mg PO DAILY #90 tabs 05/10/21 [Rx Last Taken Unknown] apixaban 5 mg tablet 5 mg PO BID BLOOD THINNER #60 tabs 06/09/21 [Rx Last Taken Unknown] furosemide 40 mg tablet See Rx Instructions .Route .COMPLEX #28 TABLETS 09/07/21 [Rx Last Taken Unknown] metoprolol tartrate 25 mg tablet 25 mg PO BID #60 TABLETS 01/01/22 [Rx Last Taken Unknown] lisinopril 10 mg tablet 10 mg PO DAILY BP #90 tabs 01/17/22 [Rx Last Taken Unknown] Allergy/AdvReac Type Severity Reaction Status Date / Time procaine [From Novocain] AdvReac Other Verified 03/09/22 11:21 Family History Mother Heart disease Father Heart disease Surgical History H/O cardiac radiofrequency ablation H/O coronary artery bypass surgery (01/29/08) History of left heart catheterization (01/12/19) Social History household members: none Smoking Status: Never smoker alcohol intake: never substance use type: does not use caffeine: Yes Type: coffee Number of servings: 6 ROS Constitutional Constitutional: Reports fatigue, malaise and weakness; Denies anorexia, change in weight, chills, fever(s) or night sweats Eyes Eyes: Denies blurry vision, change in eye color, change in vision, discharge from eye(s), double vision, erythema, eye pain, loss of vision or other ENT HEENT: Reports sore throat; Denies abnormal hearing, dysphagia, ear pain, epistaxis, headache(s), hearing loss, nasal congestion, nasal discharge, post nasal drip, sinus pressure or other Cardiovascular Cardiovascular: Denies chest pain, claudication, dyspnea on exertion, edema, li ghtheadedness, orthopnea, palpitations, paroxysmal nocturnal dyspnea, rapid heart rate, syncope or other Respiratory/Chest Respiratory/Chest: Reports cough; Denies dyspnea, excessive phlegm production, hemoptysis, productive cough, shortness of breath at rest, shortness of breath with exertion, wheezing or other Gastrointestinal Gastrointestinal: Denies abdominal pain, coffee ground emesis, constipation, diarrhea, dyspepsia, hematemesis, hematochezia, loose stools, melena, nausea, vomiting or other Genitourinary Genitourinary: Denies burning urination, difficulty urinating, dysuria, hematuria, nocturia, urinary frequency, urinary hesitancy, urinary incontinence, urinary urgency or other Musculoskeletal Musculoskeletal: Reports joint pain and joint stiffness; Denies arthralgias, back pain, joint swelling, myalgias, neck pain or other Integumentary Integumentary: Reports jaundice and wounds; Denies dry skin, lesions, new lesions, pruritus or rash Neurologic Neurologic: Denies abnormal gait, abnormal speech, confusion, disequilibrium, dizziness, focal weakness, headache(s), numbness, paresthesias, seizure-like activity, seizures, syncope, tingling, tremor(s) or other Psychiatric Psychiatric: Denies anxiety or depression Endocrine Endocrinology: Denies change in body appearance, cold intolerance, excessive sweating, heat intolerance, polydipsia, polyuria or other Hematologic/Lymphatic Hematologic/Lymphatic: Reports easy bruising Allergic/Immunologic Allergic/Immunologic: Denies rhinitis, hives, eczemia, asthma or other Physical Exam Const alert, oriented x3, no apparent distress and well nourished Constitutional Narrative: Morbidly obese elderly white female lying in bed, appears comfortable nontoxic, appears comfortable and appropriately interactive mild confusion with regards to most recent past medical history and information General Appearance: cooperative HEENT normocephalic and head/scalp atraumatic HEENT Narrative: Mildly hard of hearing, Mallampati is 2, dentures in place, no thrush, mucous membranes are slightly dry Eyes PERRL and EOMs intact bilaterally Eyes Narrative: Conjunctiva are pale bilaterally, no scleral icterus Neck no lymphadenopathy, supple, no JVD and no carotid bruits Resp normal respiratory effort, no retractions, no use of accessory muscles and clear to auscultation bilaterally Auscultation: crackles, rales, rhonchi, wheezes and diminished lung sounds bilateral and diffuse Cardio regular rate, regular rhythm, S1 normal heart sound, S2 normal heart sound, no rub, no gallops, no clicks and no JVD; Negative for no murmurs Cardio Narrative: 2 out of 6 to 3 out of 6 systolic murmur GI normal to inspection, nondistended, normoactive bowel sounds, soft to palpation, non-tender, non-distended and hepatosplenomegaly Extremity no clubbing, cyanosis or edema Skin Skin Narrative: Mild right lower extremity scattered erythema, warmth., Leg is slightly tender, wound on the dorsum of the right foot that appears to be well-healing however slight erythema around it Neuro oriented x3, CN's II-XII intact bilaterally, moves all extremities and no focal motor deficits Neuro Narrative: Generalized weakness Sensorium / Orientation: awake, alert, oriented to person, oriented to place and oriented to time Speech: speech normal Results Lab / Micro Data Result Diagrams: 03/09/22 09:20 03/09/22 09:20 Assessment & Plan Assessment/Plan (1) Anemia: (2) Cellulitis: (3) Iron deficiency: PLAN: Plan 1. Possible right lower extremity cellulitis, mild leukocytosis-IV Unasyn. O btain UA/culture, blood culture, chest x-ray to rule out other source of infection. 2. Acute microcytic anemia- no significant history of anemia. Hemoglobin January 2022 10.1 however prior hemoglobin normal. Hemoglobin at [facility] 03/07/2022 9.1. Check stool for occult blood. Obtain iron studies. Consult GI. Patient has a reported history of collagenous colitis and is on budesonide. Re cent ablation for A. fib, patient remains on Eliquis. IV PPI. 3. Weakness, debility-likely combination of #1/#2. PT/OT. Patient lives alone. Case management consult for discharge planning. 4. Atrial fibrillation with recent ablation 03/07/2022 at [place]-on Eliquis, metoprolol. 5. History of collagenous colitis-on budesonide. Prior colonoscopy November [address] Cummings. History of collagenous colitis. 6. CKD stage IIIb-at baseline. 7. CAD- on aspirin, statin, metoprolol. 8. Hypertension-stable, continue metoprolol, lisinopril. 9. Hyperlipidemia-continue statin. 10. History of pseudoseizure-Per PCP documentation. Continue outpatient follow- up. Previously on Keppra which was discontinued in 2018. Followed by [facility]. 11. History of cognitive impairment/memory concerns-Per PCP note, patient would not cooperate with [facility]. Recommended referral to neuropsych for formal cognitive assessment. 12. Hypothyroidism-continue Synthroid regimen. DVT prophylaxis-Eliquis This patient was seen by ADAM Antunez under the supervision of Dr. Chan. Assessment: Right lower extremity cellulitis -Suspect nidus for infection is wound on dorsum of right foot Acute on chronic anemia Iron deficiency Generalized weakness/debility Concern for malnutrition Atrial fibrillation status post ablation 03/07/2022 CKD stage IIIb History of collagenous colitis CAD status post CABG Hypertension Hyperlipidemia History of pseudoseizure History of mild cognitive impairment Hypothyroidism Morbid obesity Plan: -We will continue Unasyn for right lower extremity cellulitis if no improvement may need to add agent that would address MRSA -Lower extremity Doppler negative for DVT -Check Hemoccult stool -IV iron x2 doses -Check guaiac -We will continue Eliquis for now but if guaiac positive may need to discontinue -Gastroenterology consult as I suspect GI losses--> unclear if patient's had previous scopes -Check TSH -Continue home atorvastatin -Continue home budesonide for collagenous colitis -Continue home Lasix -Continue home levothyroxine -Continue home lisinopril/metoprolol -Continue home omeprazole Charges/Coding Visit Charges Inpatient E&M: 32872 Init Hosp L3
--- NOTE | 2022-03-09 13:45 | RAD_ITS ---
STUDY: X-RAY CHEST REASON FOR EXAM: Female, 76 years old. Cough. TECHNIQUE: AP and lateral views of the chest. COMPARISON: Comparison is made with prior study of 01/15/2022. FINDINGS: EKG electrodes are seen. Hyperinflation. Decreased bilateral bronchopulmonary markings more prominent in the upper lobes suggestive of emphysematous change. There is no demonstrated pleural abnormality. Sternal cerclage wires and vascular clips are present from a prior sternotomy and coronary artery bypass graft procedure (CABG). Cardiomegaly. Normal mediastinum and ale. Normal visualized pulmonary arteries. There is atherosclerotic calcification of the aortic arch with tortuosity. There are diffuse degenerative changes of the visualized thoracic spine. Normal visualized ribs, clavicles, and shoulders. Hiatal hernia. RAD/Chest PA and Lateral IMPRESSION: Hyperinflation. No acute abnormality is seen. Electronically Signed: Geoffrey Lezama MD at 14:03 EDT ,
[2022-03-09 14:47] LABS: Bacteria 0 SEEN /hpf (None Seen); Mucous, Urine 0 SEEN /hpf (<or=2+); Red Blood Cells-Urine 0 SEEN /hpf (0-5)
[2022-03-09 14:51] LABS: Color, Urine Yellow (Yellow); Glucose, Dipstick Normal (Normal); Ketone-Dipstick Negative (Negative); Leukocyte Esterase-Dipstick 100 /ul (Negative); Nitrite-Dipstick Negative (Negative); Occult Blood-Urine Negative /ul (Negative); Protein-Dipstick Negative (Negative); Urine Bilirubin Dipstick Negative (Negative); Urine Clarity Clear (Clear); Urine Urobilinogen Normal (Normal)
[2022-03-09 15:01] LABS: Squamous Epithelial Cells - UA 0-5 SEEN /hpf (5-10); White Blood Cells 0-5 SEEN /hpf (0-5)
[2022-03-09 15:30] LABS: Iron 10 ug/dL (50-170); Iron Binding Capacity,Total 316 ug/dL (250-450); PERCENT IRON SATURATION 3.2 % (15.0-55.0)
[2022-03-09 15:30] LABS: Vitamin B12 441 pg/mL (211-911)
[2022-03-09] MEDS: Cholestyramine/Sucrose 4 GM/PACKET PO ×2 (16:37→22:56)
[2022-03-09 16:42] LABS: Hemoglobin 7.8 g/dL (12.0-15.0)
[2022-03-09] MEDS: 0.9% Saline Lock 10 ML Syringe IV (17:12)
[2022-03-09 17:39] LABS: Ferritin 70 ng/mL (8-252)
[2022-03-09 17:48] LABS: Thyroid Stim Hormone (TSH) 0.28 uIU/mL (0.358-3.74)
--- NOTE | 2022-03-09 18:25 | CON.PCM_ITS ---
Assessment & Plan Assessment/Plan (1) Iron deficiency: PLAN: She should go an upper endoscopy to evaluate her upper GI tract and if that is negative she may need a colonoscopy. HPI Consult Data Date of Consult: 03/10/22 HPI Narrative Reason for Consultation: anemia HPI Narrative: HA GARAY, is a 76 F who presents with worsening pain and swelling over her right lower leg. She has a history of anxiety, coronary disease and prior CABG and history of A. fib.? On Saturday was at [facility] and was admitted overnight she had an ablation procedure for A. fib.? Typically is on the blood thinner Eliquis.? She was discharged from the hospital yesterday.? Daughter who is one of her caregivers stated she has developed pain and swelling and redness in her right lower leg.? No history of DVT or PE. I was asked to see her due to to a worsening anemia. Her hemoglobin is normally between 12 and 13. When she came into the hospital it was 10.8 and this morning it was down to 7.7. She denied any history of GI bleed. She takes Eliquis 5 p.o. twice daily. She also takes budesonide 9 mg a day for asthma. She was on prednisone recently for a recent asthma exacerbation. [facility] Medical History (Updated 03/09/22 @ 16:[address] Myrna Chan DO) Alzheimer's dementia Anxiety Atherosclerosis of coronary artery of [place] heart without angina pectoris Essential (primary) hypertension GERD (gastroesophageal reflux disease) HLD (hyperlipidemia) Hypothyroidism Obesity (BMI 30-39.9) Paroxysmal atrial fibrillation Pseudoseizures Stage 3b chronic kidney disease (CKD) Syncope Medical History unable to obtain Home Medications levothyroxine 112 mcg tablet 112 mcg PO DAILY thyroid 07/19/17 [History Last Taken 11/30/20] aspirin 81 mg chewable tablet 81 mg PO DAILY health maintenance 06/08/20 [History Last Taken 06/08/20] budesonide 3 mg capsule,delayed,extended release 9 mg PO DAILY asthma 06/08/20 [History Last Taken 11/30/20] omeprazole 40 mg capsule,delayed release 40 mg PO DAILY gerd 06/08/20 [History Last Taken 11/30/20] sertraline 50 mg tablet 50 mg PO DAILY DEPRESSION 11/30/20 [History Last Taken 11/30/20] cholestyramine (with sugar) 4 gram powder for susp in a packet (Questran) 1 ea PO TID 04/09/21 [History Last Taken Unknown] famotidine 20 mg tablet (Pepcid) 20 mg PO DAILY 04/09/21 [History Last Taken Unknown] benzonatate 100 mg capsule (Tessalon Perles) 100 mg PO TID PRN Cough 05/07/21 [History Last Taken Unknown] nitroglycerin 0.4 mg sublingual tablet (Nitrostat) 0.4 mg sublingual Q5M PRN chest pain 05/07/21 [History Last Taken Unknown] ondansetron 4 mg disintegrating tablet 4 mg PO Q8H PRN PRN Nausea #10 tabs 05/07/21 [Rx Last Taken Unknown] prednisone 20 mg tablet 20 mg PO DAILY 05/07/21 [History Last Taken Unknown] atorvastatin 20 mg tablet 20 mg PO DAILY #90 tabs 05/10/21 [Rx Last Taken Unknown] apixaban 5 mg tablet 5 mg PO BID BLOOD THINNER #60 tabs 06/09/21 [Rx Last Taken Unknown] furosemide 40 mg tablet See Rx Instructions .Route .COMPLEX #28 TABLETS 09/07/21 [Rx Last Taken Unknown] metoprolol tartrate 25 mg tablet 25 mg PO BID #60 TABLETS 01/01/22 [Rx Last Taken Unknown] lisinopril 10 mg tablet 10 mg PO DAILY BP #90 tabs 01/17/22 [Rx Last Taken Unknown] Allergy/AdvReac Type Severity Reaction Status Date / Time procaine [From Novocain] AdvReac Other Verified 03/09/22 11:21 Family History Mother Heart disease Father Heart disease Surgical History H/O cardiac radiofrequency ablation H/O coronary artery bypass surgery (01/29/08) History of left heart catheterization (01/12/19) Social History household members: none Smoking Status: Never smoker alcohol intake: never substance use type: does not use caffeine: Yes Type: coffee Number of servings: 6 ROS Constitutional Constitutional: Reports fatigue, malaise, weakness and other Details: Poor appetite/oral intake ; Denies anorexia, change in weight, chills, fever(s) or night sweats Eyes Eyes: Denies blurry vision, change in eye color, change in vision, discharge from eye(s), double vision, erythema, eye pain, loss of vision or other ENT HEENT: Reports sore throat; Denies abnormal hearing, dysphagia, ear pain, epistaxis, headache(s), hearing loss, nasal congestion, nasal discharge, post nasal drip, sinus pressure or other Cardiovascular Cardiovascular: Denies chest pain, claudication, dyspnea on exertion, edema, lightheadedness, orthopnea, palpitations, paroxysmal nocturnal dyspnea, rapid heart rate, syncope or other Respiratory/Chest Respiratory/Chest: Reports cough; Denies dyspnea, excessive phlegm production, hemoptysis, productive cough, shortness of breath at rest, shortness of breath with exertion, wheezing or other Gastrointestinal Gastrointestinal: Denies abdominal pain, coffee ground emesis, constipation, diarrhea, dyspepsia, hematemesis, hematochezia, loose stools, melena, nausea, vomiting or other Genitourinary Genitourinary: Denies burning urination, difficulty urinating, dysuria, hematuria, nocturia, urinary frequency, urinary hesitancy, urinary incontinence, urinary urgency or other Musculoskeletal Musculoskeletal: Reports joint pain and joint stiffness; Denies arthralgias, back pain, joint swelling, myalgias, neck pain or other Integumentary Integumentary: Reports jaundice, wounds and other Details: RLE warmth and erythema ; Denies dry skin, lesions, new lesions, pruritus or rash Neurologic Neurologic: Denies abnormal gait, abnormal speech, confusion, disequilibrium, dizziness, focal weakness, headache(s), numbness, paresthesias, seizure-like activity, seizures, syncope, tingling, tremor(s) or other Psychiatric Psychiatric: Denies anxiety or depression Endocrine Endocrinology: Denies change in body appearance, cold intolerance, excessive sweating, heat intolerance, polydipsia, polyuria or other Hematologic/Lymphatic Hematologic/Lymphatic: Reports easy bruising Allergic/Immunologic Allergic/Immunologic: Denies rhinitis, hives, eczemia, asthma or other Lab / Micro Data Result Diagrams: 03/10/22 07:30 03/09/22 09:20 Labs: Laboratory Results - last 24 hr 03/09/22 09:20: WBC 11.9 H, RBC 3.30 L, Hgb 7.7 L, Hct 25.5 L, MCV 77.3 L, MCH 23.3 L, MCHC 30.2 L, RDW Std Deviation 43.8, RDW Coeff of Jesscia 15.9 H, Plt Count 191, MPV 10.5, Immature Gran % (Auto) 0.400, Neut % (Auto) 85.1 H, Lymph % (Auto) 7.9 L, [place] % (Auto) 6.3, Eos % (Auto) 0.1, Baso % (Auto) 0.2, Absolute Neuts (auto) 10.1 H, Absolute Lymphs (auto) 0.94, Nucleated RBC % 0 03/09/22 09:20: Sodium 135 L, Potassium 3.5, Chloride 102, Carbon Dioxide 26.0, Anion Gap 7, BUN 15, Creatinine 1.30 H, Estim Creat Clear Calc 34.16, Est GFR (MDRD) Af Amer 51 L, Est GFR (MDRD) Non-Af 43 L, BUN/Creatinine Ratio 11.5, Glucose 90, Calcium 8.4 L, Total Bilirubin 0.90, AST 37, ALT 17, Alkaline Phosphatase 86, Total Protein 5.9 L, Albumin 2.6 L, Globulin 3.3, Albumin/Globulin Ratio 0.8 L 03/09/22 09:20: Iron 10 L, TIBC 316, Iron Saturation 3.2 L, Folate 10.30 03/09/22 14:35: Urine Color Yellow, Urine Clarity Clear, Urine pH 6.0, Ur Specific [place] 1.010, Urine Protein Negative, Urine Glucose (UA) Normal, Urine Ketones Negative, Urine Occult Blood Negative, Urine Nitrite Negative, Urine Bilirubin Negative, Urine Urobilinogen Normal, Ur Leukocyte Esterase 100 H, Urine RBC 0 SEEN, Urine WBC 0-5 SEEN, Ur Squamous Epith Cells 0-5 SEEN, Urine Bacteria 0 SEEN, Urine Mucus 0 SEEN 03/09/22 14:37: Vitamin B12 441 03/09/22 16:19: Ferritin 70 03/09/22 16:19: Hgb 7.8 L 03/09/22 16:19: TSH 0.28 L Micro: Microbiology 03/09/22 16:35 Nasal Secretion SARS-CoV-2 Antigen (Rapid) - Final Rhythm Strip Rhythm Strip: Sinus Rhythm Rate: 86 Ectopy: None Radiology Impression Venous Doppler Study 03/09/22 09:09 Interpretation Summary There is no evidence of right lower extremity deep vein thrombosis. Right great saphenous vein appears patent and compressible segmentally. Ordering Physician: Micah Montiel Referring Physician: Bal Benz Performed By: Elif Pham RVT Chest X-Ray 03/09/22 13:45 IMPRESSION: Hyperinflation. No acute abnormality is seen. Electronically Signed: Geoffrey Lezama MD at 14:03 EDT , Charges/Coding Visit Charges Inpatient E&M: 75384 Init Hosp L2
--- NOTE | 2022-03-09 18:56 | NURSING ---
pt daughter Antonella phoned in and updated. Antonella states that pt does not have POA for healthcare and that all five of us kids help make decisions for her. informed Antonella of MD request to perform HOME STAGER on patient. Informed Antonella that a spokesperson for the family for contact if anything is needed for pt and Antonella states she will be in touch with her siblings and call in [facility].
[2022-03-09] MEDS: APIXABAN 5 MG TABLET PO (22:55)
[2022-03-09] MEDS: Metoprolol Tartrate 25 MG Tablet PO (22:57)
[2022-03-10] VITALS (12 sets, daily range): BP systolic 100–133; BP diastolic 52–98; PULSE 64–81; RESP 18–20; TEMP 36.8–38; O2SAT 94–98
[2022-03-10 08:27] LABS: Absolute Lymphocyte Count 0.78 X10^3/uL (0.83-4.51); Absolute Neutrophil Count 7.9 X10^3/uL (2.0-7.7); Basophil# 0.03 X10^3/uL; Basophil% 0.3 % (0-1); Eosinophil# 0.08 X10^3/uL; Eosinophils% 0.8 % (0-5); Hematocrit 24.3 % (37-47); Hemoglobin 7.4 g/dL (12.0-15.0); Lymphocyte # 0.78 X10^3/ul (0.83-4.51); Lymphocyte % 8.3 % (19-41); Mean Corp Hgb Conc 30.5 g/dL (32-36); Mean Corpuscular Hgb 23.1 pg (27.0-32.0); Mean Corpuscular Volume 75.9 fL (81-99); Mean Platelet Vol. 10.3 fl (6.2-12.0); Monocyte# 0.58 X10^3/uL; Monocyte% 6.2 % (0-10); NRBC Flagged by Analyzer 0 % (0-5); Neutrophil % 83.8 % (47-70); Platelet Count 184 K/mm3 (150-450); RBC Distribution Width CV 16.1 % (11.6-14.6); RBC Distribution Width SD 44.6 fl (35.1-43.9); White Blood Count 9.4 K/mm3 (4.4-11.0)
[2022-03-10 08:51] LABS: Anion Gap 7 (5-15); BUN 13 mg/dL (7-18); BUN/Creat Ratio 11.4 RATIO (10-20); Calcium,Total 8.4 mg/dL (8.5-10.1); Chloride 105 mmol/L (98-107); Creatinine, Serum 1.14 mg/dL (0.55-1.02); EST Glomerular Filtration Rate 49 mL/min (>60); Est Glom Filt Rate - Afr Amer 60 mL/min (>60); Estimated Creatinine Clearance 38.96 ml/min; Glucose 97 mg/dL (74-106); Potassium 3.7 mmol/L (3.5-5.1); Sodium Level 138 mmol/L (136-145)
--- NOTE | 2022-03-10 09:18 | OP.EGD_ITS ---
Patient Name: Tanya Sanchez Procedure Date: 03/10/2022 8:36 AM Date of : 1945 Age: 76 Procedure: Upper GI endoscopy Indications: Iron deficiency anemia Providers: Edvin Keyes DO Medicines: Monitored Anesthesia Care Patient Profile: This is a 76 year old female. Refer to note in patient chart for documentation of history and physical. Patient has symptoms. Complications: No immediate complications. Procedure: Pre-Anesthesia Assessment: - Prior to the procedure, a History and Physical was performed, and patient medications and allergies were reviewed. The patient is competent. The risks and benefits of the procedure and the sedation options and risks were discussed with the patient. All questions were answered and informed consent was obtained. Patient identification and proposed procedure were verified by the physician in the pre-procedure area. Mental Status Examination: alert and oriented. Airway Examination: normal oropharyngeal airway and neck mobility. Respiratory Examination: clear to auscultation. CV Examination: normal. Prophylactic Antibiotics: The patient does not require prophylactic antibiotics. Prior Anticoagulants: The patient has taken no previous anticoagulant or antiplatelet agents. ASA Grade Assessment: II - A patient with mild systemic disease. After reviewing the risks and benefits, the patient was deemed in satisfactory condition to undergo the procedure. The anesthesia plan was to use moderate sedation / analgesia (conscious sedation). Immediately prior to administration of medications, the patient was re-assessed for adequacy to receive sedatives. The heart rate, respiratory rate, oxygen saturations, blood pressure, adequacy of pulmonary ventilation, and response to care were monitored throughout the procedure. The physical status of the patient was re-assessed after the procedure. After obtaining informed consent, the endoscope was passed under direct vision. Throughout the procedure, the patient's blood pressure, pulse, and oxygen saturations were monitored continuously. The gastroscope was introduced through the mouth, and advanced to the second part of duodenum. The upper GI endoscopy was accomplished without difficulty. The patient tolerated the procedure well. Scope In: 8:53:44 AM Scope Out: 9:03:41 AM Total Procedure Duration Time 0 hours 9 minutes 57 seconds Findings: The upper third of the esophagus and middle third of the esophagus were normal. A mild Schatzki ring was found in the lower third of the esophagus. A large hiatal hernia was present. One oozing cratered gastric ulcer with a visible vessel was found in the gastric fundus. The lesion was 6 mm in largest dimension. Area was successfully injected with 5 mL of a 1:10,000 solution of epinephrine for drug delivery. Coagulation for hemostasis using heater probe was successful. For hemostasis, three hemostatic clips were successfully placed. There was no bleeding at the end of the procedure. The first portion of the duodenum was normal. Impression: - Normal upper third of esophagus and middle third of esophagus. - Mild Schatzki ring. - Large hiatal hernia. - Oozing gastric ulcer with a visible vessel. Injected. Treated with a heater probe. Clips were placed. - Normal first portion of the duodenum. - No specimens collected. Recommendation: - Return [facility] to [facility] care. - Give Protonix (pantoprazole): initiate therapy with 80 mg IV bolus, then 8 mg/hr IV by continuous infusion today. - Clear liquid diet. - The patient has taken no previous anticoagulant or antiplatelet agents. - Repeat upper endoscopy in 4 weeks for surveillance. Procedure Code(s): --- Professional --- 61796, Esophagogastroduodenoscopy, flexible, transoral; with control of bleeding, any method 60038, 59,51, Esophagogastroduodenoscopy, flexible, transoral; with directed submucosal injection(s), any substance CPT copyright 2017 [employer]. All rights reserved. The codes documented in this report are preliminary and upon pediatric anesthesiologist review may be revised to meet current compliance requirements. Edvin Keyes DO 03/10/2022 9:18:29 AM This report has been signed electronically. Number of Addenda: 1 Note Initiated On: 03/10/2022 8:36 AM Addendum Number: 1 Addendum Date: 06/13/2022 6:32:44 AM MAC was used as sedation for this procedure. Edvin Keyes DO 06/13/2022 6:32:47 AM This report has been signed electronically.
--- NOTE | 2022-03-10 09:19 | OP.CCLET_ITS ---
06/13/2022 Bal Benz Re : Upper GI endoscopy procedure for Tanya Sanchez Dear Demar This procedure was performed on Thursday, March 10, 2022. My impressions and recommendations are as follows: Impressions : - Normal upper third of esophagus and middle third of esophagus. - Mild Schatzki ring. - Large hiatal hernia. - Oozing gastric ulcer with a visible vessel. Injected. Treated with a heater probe. Clips were placed. - Normal first portion of the duodenum. - No specimens collected. Recommendations : - Return patient to [facility] for [facility] care. - Give Protonix (pantoprazole): initiate therapy with 80 mg IV bolus, then 8 mg/hr IV by continuous infusion today. - Clear liquid diet. - The patient has taken no previous anticoagulant or antiplatelet agents. - Repeat upper endoscopy in 4 weeks for surveillance. My findings are described in the full procedure note, which is enclosed. If I can be of further assistance, please feel free to contact me at . Sincerely, Edvin Keyes, 03/10/2022 9:18:29 AM This report has been signed electronically.
[2022-03-10 09:29] LABS: International Normalized Ratio 1.7; Prothrombin Time (Protime)PT. 19.8 SECONDS (11.7-14.9)
[2022-03-10 09:30] LABS: Partial Thromboplast Time 51.1 Seconds (24.1-36.2)
[2022-03-10] MEDS: Lisinopril 10 MG Tablet PO (10:08)
[2022-03-10] MEDS: Furosemide 40 MG Tablet PO (10:08)
[2022-03-10] MEDS: Sertraline 50 MG Tablet PO (10:08)
[2022-03-10] MEDS: Budesonide 3 MG CAPSULE.EC 9 MG PO (10:08)
[2022-03-10] MEDS: Metoprolol Tartrate 25 MG Tablet PO (10:08)
[2022-03-10] MEDS: Atorvastatin Calcium 20 MG Tablet PO (10:10)
--- NOTE | 2022-03-10 11:11 | PCM.PN.HOSP ---
Documented by User: Martina Purcell NP, FITTER TACKER-C 03/10/22 11:29 Subjective Subjective Patient seen and examined. Underwent EGD this morning. Reports right lower extremity discomfort. Denies fever, chills. Denies other symptoms or complaints. Objective Data Objective Data Vital Signs: Vital Signs Temp Pulse Resp BP Pulse Ox O2 Del Method 100.4 F H 75 18 117/98 H 96 Room Air 03/10/22 09:25 03/10/22 10:08 03/10/22 09:25 03/10/22 10:08 03/10/22 09:25 03/10/22 09:25 Oxygen Delivery Method Room Air Weight: 246 lb 14.684 oz Body Mass Index (BMI) 41.1 Intake & Output: Intake and Output for Last 24 Hours 03/08/22 03/09/22 03/10/22 23:59 23:59 23:59 Intake Total 727.75 / 727.75 224 / 224 Output Total 750 / 750 Balance -22.25 / -22.25 224 / 224 Lab / Micro Data Result Diagrams: 03/10/22 07:30 03/10/22 07:30 Labs: Laboratory Results - last 24 hr 03/09/22 09:20: Iron 10 L, TIBC 316, Iron Saturation 3.2 L, Folate 10.30 03/09/22 14:35: Urine Color Yellow, Urine Clarity Clear, Urine pH 6.0, Ur Specific [place] 1.010, Urine Protein Negative, Urine Glucose (UA) Normal, Urine Ketones Negative, Urine Occult Blood Negative, Urine Nitrite Negative, Urine Bilirubin Negative, Urine Urobilinogen Normal, Ur Leukocyte Esterase 100 H, Urine RBC 0 SEEN, Urine WBC 0-5 SEEN, Ur Squamous Epith Cells 0-5 SEEN, Urine Bacteria 0 SEEN, Urine Mucus 0 SEEN 03/09/22 14:37: Vitamin B12 441 03/09/22 16:19: Ferritin 70 03/09/22 16:19: Hgb 7.8 L 03/09/22 16:19: TSH 0.28 L 03/10/22 07:30: WBC 9.4, RBC 3.20 L, Hgb 7.4 L, Hct 24.3 L, MCV 75.9 L, MCH 23.1 L, MCHC 30.5 L, RDW Std Deviation 44.6 H, RDW Coeff of Jessica 16.1 H, Plt Count 184, MPV 10.3, Immature Gran % (Auto) 0.600, Neut % (Auto) 83.8 H, Lymph % (Auto) 8.3 L, Haines % (Auto) 6.2, Eos % (Auto) 0.8, Baso % (Auto) 0.3, Absolute Neuts (auto) 7.9 H, Absolute Lymphs (auto) 0.78 L, Nucleated RBC % 0 03/10/22 07:30: Sodium 138, Potassium 3.7, Chloride 105, Carbon Dioxide 26.0, Anion Gap 7, BUN 13, Creatinine 1.14 H, Estim Creat Clear Calc 38.96, Est GFR (MDRD) Af Amer 60, Est GFR (MDRD) Non-Af 49 L, BUN/Creatinine Ratio 11.4, Glucose 97, Calcium 8.4 L 03/10/22 07:30: PT 19.8 H, INR 1.7, APTT 51.1 H Micro: Microbiology 03/09/22 16:35 Nasal Secretion SARS-CoV-2 Antigen (Rapid) - Final Radiography Diagnostic Testing: Radiology Impression Chest X-Ray 03/09/22 13:45 IMPRESSION: Hyperinflation. No acute abnormality is seen. Electronically Signed: Geoffrey Lezama MD at 14:03 EDT , Rhythm Strip Rhythm Strip: Sinus Rhythm Rate: 86 Ectopy: None Physical Exam Const alert and oriented x3 Nutritional Appearance: obese HEENT normocephalic Mouth: dry mucous membranes Eyes PERRL, EOMs intact bilaterally and conjunctivae normal Neck no lymphadenopathy Resp clear to auscultation bilaterally Auscultation: diminished lung sounds Cardio regular rate, regular rhythm and no murmurs Peripheral Pulses: pulses 2+ throughout GI normal to inspection, nondistended, normoactive bowel sounds, non-tender and non-distended Extremity normal to inspection Skin no rashes or lesions noted Skin Narrative: Right lower extremity with more scattered diffuse erythema, appears stable. Warmth noted. Lesions: no lesions Rashes: no rashes Trauma: no lacerations or abrasions Neuro CN's II-XII intact bilaterally, no focal motor deficits, no sensory deficits noted and deep tendon reflexes 2+ bilaterally Psych mental status grossly normal and affect normal Assessment & Plan Assessment/Plan (1) Anemia: (2) Iron deficiency: (3) Cellulitis: (4) Gastric ulcer: (5) Chronic anticoagulation: (6) Schatzki's ring: (7) Hiatal hernia: PLAN: Plan 1.? Right lower extremity cellulitis-mild leukocytosis resolved. IV Unasyn, add IV Vanc.? Chest x-ray unremarkable. UA unremarkable. Blood culture pending. 2. Acute microcytic anemia secondary to upper GI bleed-GI consulted.? Eliquis held. Patient underwent EGD which demonstrated mild Schatzki ring, large hiatal hernia, oozing gastric ulcer with visible vessel which was injected and treated with heater probe. Clips placed. Protonix drip. Trend CBC. 3. Weakness, debility-likely combination of #1/#2.? PT/OT.? Patient lives alone.? Case management consult for discharge planning. Follow PT recommendations. 4. Atrial fibrillation with recent ablation 03/07/2022 at [place]-on Eliquis, metoprolol. Eliquis currently held. 5. History of collagenous colitis-on budesonide.? Prior colonoscopy November [address] Cummings. History of collagenous colitis. 6. CKD stage IIIb-at baseline. 7. CAD- on statin, metoprolol. 8. Hypertension-stable, continue metoprolol, lisinopril. 9. Hyperlipidemia-continue statin. 10. History of pseudoseizure-Per PCP documentation.? Continue outpatient follow-up.? Previously on Keppra which was discontinued in 2018.? Followed by [place] [facility]. 11. History of cognitive impairment/memory concerns-Per PCP note, patient would not cooperate with [facility].? Recommended referral to neuropsych for formal cognitive assessment. 12. Hypothyroidism-continue Synthroid regimen. DVT prophylaxis-Eliquis placed on hold This patient was seen by ADAM Antunez under the supervision of Dr. Chan. Documented by User: Dr. Myrna Chan DO 03/10/22 14:17 Subjective Subjective Patient seen and examined. Underwent EGD this morning. Reports right lower extremity discomfort. Denies fever, chills. Denies other symptoms or complaints. This patient was seen in conjunction with Martina Purcell NP. The following represents my independent history and physical examination. Please see below for than the above. Patient has just returned from a EGD. Started on a clear liquid diet. Patient states she would like some meat. Denies any specific complaints at this present time. Has not yet worked with physical therapy. States leg feels a little bit better today. Objective Data Lab / Micro Data Result Diagrams: 03/10/22 07:30 03/10/22 07:30 Physical Exam Const alert, oriented x3 and no apparent distress Constitutional Narrative: Morbidly obese elderly white female lying in bed, appears comfortable nontoxic, appears comfortable and appropriately interactive, son at bedside General Appearance: cooperative Orientation / Consciousness: awake, oriented to person and oriented to place HEENT head/scalp atraumatic and moist oral mucous membranes HEENT Narrative: Dentition is poor, Mallampati is 2-3, no thrush Resp normal respiratory effort, no retractions, no use of accessory muscles and clear to auscultation bilaterally Auscultation: diminished lung sounds diffuse Cardio regular rate, regular rhythm, S1 normal heart sound, S2 normal heart sound, no rub, no gallops, no clicks and no JVD Cardio Narrative: 2 out of 6 to 3 out of 6 systolic murmur Extremity no clubbing, cyanosis or edema Skin Skin Narrative: Right lower extremity with more scattered diffuse erythema, appears stable. Warmth noted., Erythema has not extended above on outlining done yesterday on admission, wound on dorsum of right foot appears to be healing well Neuro CN's II-XII intact bilaterally and no focal motor deficits Neuro Narrative: Generalized weakness Sensorium / Orientation: awake, alert, oriented to person, oriented to place and oriented to time Speech: speech normal Assessment & Plan Assessment/Plan (1) Anemia: (2) Iron deficiency: (3) Cellulitis: (4) Gastric ulcer: (5) Chronic anticoagulation: (6) Schatzki's ring: (7) Hiatal hernia: PLAN: Plan 1.? Right lower extremity cellulitis-mild leukocytosis resolved. IV Unasyn, add IV Vanc.? Chest x-ray unremarkable. UA unremarkable. Blood culture pending. 2. Acute microcytic anemia secondary to upper GI bleed-GI consulted.? Eliquis held. Patient underwent EGD which demonstrated mild Schatzki ring, large hiatal hernia, oozing gastric ulcer with visible vessel which was injected and treated with heater probe. Clips placed. Protonix drip. Trend CBC. 3. Weakness, debility-likely combination of #1/#2.? PT/OT.? Patient lives alone.? Case management consult for discharge planning. Follow PT recommendations. 4. Atrial fibrillation with recent ablation 03/07/2022 at [place]-on Eliquis, metoprolol. Eliquis currently held. 5. History of collagenous colitis-on budesonide.? Prior colonoscopy November [address] Cummings. History of collagenous colitis. 6. CKD stage IIIb-at baseline. 7. CAD- on statin, metoprolol. 8. Hypertension-stable, continue metoprolol, lisinopril. 9. Hyperlipidemia-continue statin. 10. History of pseudoseizure-Per PCP documentation.? Continue outpatient follow-up.? Previously on Keppra which was discontinued in 2018.? Followed by [place] [facility]. 11. History of cognitive impairment/memory concerns-Per PCP note, patient would not cooperate with [facility].? Recommended referral to neuropsych for formal cognitive assessment. 12. Hypothyroidism-continue Synthroid regimen. DVT prophylaxis-Eliquis placed on hold This patient was seen by ADAM Antunez under the supervision of Dr. Chan. Assessment: Right lower extremity cellulitis -Suspect nidus for infection is wound on dorsum of right foot Bleeding gastric ulcer/PUD Acute on chronic anemia Iron deficiency Generalized weakness/debility Concern for malnutrition Atrial fibrillation status post ablation 03/07/2022 CKD stage IIIb History of collagenous colitis CAD status post CABG Hypertension Hyperlipidemia History of pseudoseizure History of mild cognitive impairment Hypothyroidism Morbid obesity Plan: -Continue Unasyn and will add vancomycin -Leg does seem to be improving some -Discontinue aspirin and Eliquis -Restart when okay with gastroenterology -EGD done on 03/10/2022 showed normal upper third of esophagus and middle third of esophagus, mild Schatzki's ring, large hiatal hernia, oozing gastric ulcer with visible vessel that was treated with injection, heater probe, clips, normal first portion of the duodenum -Start Protonix drip after bolus -Clear liquid diet today -Plan for repeat EGD in 4 weeks per gastroenterology documentation -PT/OT to assess patient -Patient may need rehab placement versus home health care at discharge depending on functional capabilities with rehab evaluations Charges/Coding Visit Charges Inpatient E&M: 52730 Subs Hosp L2
--- NOTE | 2022-03-10 11:58 | CASEMGMT ---
RADHA PRUITT assessment: Face to Face with patient for initial transition planning/care coordination assessment. RADHA PRUITT introduced self and role at [facility], pt voices understanding and consents to assessment. Pt is lying in bed in no distress on room air. Pt is A/O and answers most questions appropriately.? Pt's son, Nahun, is at bedside during assessment but he does not know answers to all questions either, so he placed call to pt's daughter, Antonella, to help complete assessment. Care providers, pharmacy,?and demographics verified. ? Presentation: Pt had ablation on saturday, unable to ambulate, c/o right leg pain Admitting dx: RLE cellulitis PCP: Demar Specialists: None Preferred Pharmacy: [place] Insurance: [employer] Prescription Benefit:?Yes Living Will/HPOA: Pt does not have LW/HPOA and declines AD info. LNOK: Antonella Villa, daughter; Candelario Jade, daughter Living Arrangements: Pt lives with nephew, Micah and his girlfriend, in apartment and states no concerns at home. Pt's family assists with ADL's. Per therapy notes, pt does need any further therapy at discharge. Transportation: Pt's family drives and states no transportation concerns. DME/HHC: Pt has the following DME: cane, rollator, and grab bars. Daughter would like script for w/c and she is aware that insurance may not cover. Script provided. Pt states no hx of HHC or SNF in past but is active with [facility] and has an aide once day/week. Pt states no concerns with going home at time of discharge. Pt is retired. Pt states does not smoke cigarettes or drink ETOH. Pt states no further concerns/needs. CM to follow for any further discharge planning/needs. Advised pt to ask for CM if any further questions/concerns/needs arise, voices understanding. Pt Goal: ? Home Plan[place] RADHA PRUITT
--- NOTE | 2022-03-10 12:33 | PHA.PHARE_ITS ---
Consult Pharmacy has been consulted to manage selected antiobiotic: Vancomycin Type of Consult: New start Suspected Infection: Skin/Soft tissue Labs: Sodium 138 mmol/L (136-145) 03/10/22 07:30 Potassium 3.7 mmol/L (3.5-5.1) 03/10/22 07:30 Chloride 105 mmol/L (98-107) 03/10/22 07:30 Carbon Dioxide 26.0 mmol/L (21.0-32.0) 03/10/22 07:30 Anion Gap 7 (5-15) 03/10/22 07:30 BUN 13 mg/dL (7-18) 03/10/22 07:30 Creatinine 1.14 mg/dL (0.55-1.02) H 03/10/22 07:30 Est GFR (MDRD) Af Amer 60 mL/min (>60) 03/10/22 07:30 Est GFR (MDRD) Non-Af 49 mL/min (>60) L 03/10/22 07:30 BUN/Creatinine Ratio 11.4 RATIO (10-20) 03/10/22 07:30 Glucose 97 mg/dL (74-106) 03/10/22 07:30 Microbiology: Microbiology 03/09/22 14:35 Urine, Clean Catch Urine Culture - Preliminary Culture exhibits no growth. 03/09/22 16:35 Nasal Secretion SARS-CoV-2 Antigen (Rapid) - Final Weight used for dosin kg Estimated Creatinine Clearance: 54 ML/MIN Goal Trough: 15-20 mcg/mL Pharmacy Plan for Drug Dosing: Give initial load dose of 2000mg IV x1, then continue with 1250mg IV q12h per [facility] dosing protocol. Will check a trough level before the 4th total dose. The patient's CrCl of 54ml/min was calculated using an adjusted body weight of 79kg. Pharmacy Service will continue to monitor and adjust dosing as required. Follow-Up Labs: Trough Vancomycin Labs to be done on [date and time ordered]: 03/11 23:30
[2022-03-10] MEDS: Cholestyramine/Sucrose 4 GM/PACKET PO ×2 (14:46→21:08)
--- NOTE | 2022-03-10 14:46 | CASEMGMT ---
Social Work Note SW updated that pt has CM through [facility]. SW attempted to call [facility] to get name of CM, their office is closed for the weekend. SW unable to find out the name of pt's CM through [facility]. Elif Pierce SENIOR LITIGATION PARALEGAL, DRAW TENDER
[2022-03-11] VITALS (9 sets, daily range): BP systolic 106–126; BP diastolic 54–91; PULSE 54–84; RESP 18; TEMP 36.4–36.8; O2SAT 94–99
[2022-03-11 05:47] LABS: Absolute Lymphocyte Count 0.78 X10^3/uL (0.83-4.51); Absolute Neutrophil Count 5.5 X10^3/uL (2.0-7.7); Basophil# 0.02 X10^3/uL; Basophil% 0.3 % (0-1); Eosinophil# 0.06 X10^3/uL; Eosinophils% 0.9 % (0-5); Hematocrit 23.3 % (37-47); Hemoglobin 6.9 g/dL (12.0-15.0); Lymphocyte # 0.78 X10^3/ul (0.83-4.51); Lymphocyte % 11.2 % (19-41); Mean Corp Hgb Conc 29.6 g/dL (32-36); Mean Corpuscular Hgb 22.8 pg (27.0-32.0); Mean Corpuscular Volume 76.9 fL (81-99); Mean Platelet Vol. 10.4 fl (6.2-12.0); Monocyte# 0.52 X10^3/uL; Monocyte% 7.5 % (0-10); NRBC Flagged by Analyzer 0 % (0-5); Neutrophil # 5.54 X10^3/uL (2.7-7.7); Neutrophil % 79.7 % (47-70); Platelet Count 177 K/mm3 (150-450); RBC Distribution Width CV 15.9 % (11.6-14.6); Red Blood Count 3.03 M/mm3 (4.2-5.4)
[2022-03-11] MEDS: Levothyroxine 112 MCG Tablet PO (05:48)
[2022-03-11] MEDS: Cholestyramine/Sucrose 4 GM/PACKET PO ×3 (05:48→20:38)
[2022-03-11 06:24] LABS: Anion Gap 8 (5-15); BUN 9 mg/dL (7-18); BUN/Creat Ratio 8.9 RATIO (10-20); Calcium,Total 8.5 mg/dL (8.5-10.1); Chloride 108 mmol/L (98-107); Creatinine, Serum 1.01 mg/dL (0.55-1.02); EST Glomerular Filtration Rate 57 mL/min (>60); Est Glom Filt Rate - Afr Amer 69 mL/min (>60); Estimated Creatinine Clearance 43.97 ml/min; Glucose 108 mg/dL (74-106); Potassium 3.6 mmol/L (3.5-5.1); Sodium Level 141 mmol/L (136-145)
--- NOTE | 2022-03-11 06:37 | PCM.HOSP.N ---
Hospitalist Note AM Hgb 6.9, will administer 1 u PRBC, plan repeat HH 1 hour following completion.
--- NOTE | 2022-03-11 09:00 | NURSING ---
Spoke with daughter update given.
[2022-03-11] MEDS: Furosemide 40 MG Tablet PO (09:14)
[2022-03-11] MEDS: Budesonide 3 MG CAPSULE.EC 9 MG PO (09:14)
[2022-03-11] MEDS: Lisinopril 10 MG Tablet PO (09:14)
[2022-03-11] MEDS: Sertraline 50 MG Tablet PO (09:14)
[2022-03-11] MEDS: Phytonadione (Vit K1) 5 MG TABLET PO (09:14)
[2022-03-11] MEDS: Metoprolol Tartrate 25 MG Tablet PO ×2 (09:15→20:37)
[2022-03-11] MEDS: Atorvastatin Calcium 20 MG Tablet PO ×2 (09:15→09:18)
--- NOTE | 2022-03-11 10:02 | PN.HOSP_ITS ---
Documented by User: Martina Purcell NP, SOFTWARE MAINTENANCE ENGINEER-C 03/11/22 10:12 Subjective Subjective Patient seen and examined. Discussed blood transfusion with patient as hemoglobin 6.9 this morning. Patient tearful as she was hoping to go home today. Understands and agreeable to plan of care. She reports her right lower extremity discomfort and redness is improving. Denies other symptoms or complaints. Objective Data Objective Data Vital Signs: Vital Signs Temp Pulse Resp BP Pulse Ox O2 Del Method 98.2 F 84 18 111/60 98 Room Air 03/11/22 03:24 03/11/22 09:15 03/11/22 03:24 03/11/22 03:24 03/11/22 03:24 03/11/22 03:25 Oxygen Delivery Method Room Air Weight: 246 lb 14.684 oz Body Mass Index (BMI) 41.1 Intake & Output: Intake and Output for Last 24 Hours 03/09/22 03/10/22 03/11/22 23:59 23:59 23:59 Intake Total 727.75 / 727.75 1771.25 / 1771.25 482 / 482 Output Total 750 / 750 Balance -22.25 / -22.25 1771.25 / 1771.25 482 / 482 Lab / Micro Data Result Diagrams: 03/11/22 05:32 03/11/22 05:32 Labs: Laboratory Results - last 24 hr 03/11/22 05:32: WBC 7.0, RBC 3.03 L, Hgb 6.9 L, Hct 23.3 L, MCV 76.9 L, MCH 22.8 L, MCHC 29.6 L, RDW Std Deviation 44.0 H, RDW Coeff of Jessica 15.9 H, Plt Count 177, MPV 10.4, Immature Gran % (Auto) 0.400, Neut % (Auto) 79.7 H, Lymph % (Auto) 11.2 L, [place]comb % (Auto) 7.5, Eos % (Auto) 0.9, Baso % (Auto) 0.3, Absolute Neuts (auto) 5.5, Absolute Lymphs (auto) 0.78 L, Nucleated RBC % 0 03/11/22 05:32: Sodium 141, Potassium 3.6, Chloride 108 H, Carbon Dioxide 25.0, Anion Gap 8, BUN 9, Creatinine 1.01, Estim Creat Clear Calc 43.97, Est GFR (MDRD) Af Amer 69, Est GFR (MDRD) Non-Af 57 L, BUN/Creatinine Ratio 8.9 L, Glucose 108 H, Calcium 8.5 03/11/22 06:50: Blood Type O POSITIVE, Antibody Screen POSITIVE H, Antibody Identification ANTI-K, Crossmatch See Detail Micro: Microbiology 03/09/22 14:37 Blood Culture (Wb) - Anticubital Left Blood Culture - Preliminary No growth in 48 hours. 03/09/22 14:47 Blood Culture (Wb) - Anticubital Right Blood Culture - Preliminary No growth in 48 hours. 03/09/22 14:35 Urine, Clean Catch Urine Culture - Preliminary Culture exhibits no growth. 03/09/22 16:35 Nasal Secretion SARS-CoV-2 Antigen (Rapid) - Final Rhythm Strip Rhythm Strip: Sinus Rhythm Rate: 86 Ectopy: None Physical Exam Const alert, oriented x3 and no apparent distress Orientation / Consciousness: awake, oriented to person, oriented to place and oriented to time HEENT normocephalic and moist oral mucous membranes Eyes PERRL, EOMs intact bilaterally and conjunctivae normal Neck no lymphadenopathy Resp normal respiratory effort and clear to auscultation bilaterally Cardio regular rate, regular rhythm and no murmurs Peripheral Pulses: pulses 2+ throughout GI normal to inspection, nondistended, normoactive bowel sounds, non-tender and non-distended Extremity normal to inspection Skin no rashes or lesions noted Skin Narrative: Right lower extremity warmth and erythema improving. Lesions: no lesions Rashes: no rashes Trauma: no lacerations or abrasions Neuro CN's II-XII intact bilaterally, no focal motor deficits, no sensory deficits n oted and deep tendon reflexes 2+ bilaterally Psych mental status grossly normal and affect normal Assessment & Plan Assessment/Plan (1) Gastric ulcer: (2) Anemia: (3) Cellulitis: (4) Coagulopathy: PLAN: Plan 1.? Right lower extremity cellulitis-mild leukocytosis resolved.? IV Unasyn, IV Vanc.? Chest x-ray unremarkable.? UA unremarkable.? Blood culture with no growth in 48 hours. 2. Acute microcytic anemia secondary to upper GI bleed-GI consulted.? Eliquis held.? Patient underwent EGD which demonstrated mild Schatzki ring, large hiatal hernia, oozing gastric ulcer with visible vessel which was injected and treated with heater probe.? Clips placed.? Protonix drip.?Additional 1 unit PRBC for hemoglobin 6.9 this morning. Trend CBC. 3. Weakness, debility-likely combination of #1/#2.? PT/OT.? Improved. Per PT, patient okay to return home at discharge. Plan for home when medically stable. 4. Atrial fibrillation with recent ablation 03/07/2022 at [place]-on Eliquis, met oprolol.? Eliquis held. 5. History of collagenous colitis-on budesonide.? Prior colonoscopy November [address] Cummings. History of collagenous colitis. 6. CKD stage IIIb-at baseline. 7. CAD- on statin, metoprolol. 8. Hypertension-stable, continue metoprolol, lisinopril. 9. Hyperlipidemia-continue statin. 10. History of pseudoseizure-Per PCP documentation.? Continue outpatient follow- up.? Previously on Keppra which was discontinued in 2018.? Followed by [place] neurology. 11. History of cognitive impairment/memory concerns-Per PCP note, patient would not cooperate with [facility].? Recommended referral to neuropsych for formal cognitive assessment. 12. Hypothyroidism-continue Synthroid regimen. DVT prophylaxis-Eliquis placed on hold This patient was seen by Martina Purcell NP-C under the supervision of Dr. Chan. Documented by User: Dr. Myrna Chan, 03/11/22 11:15 Subjective Subjective Patient seen and examined. Discussed blood transfusion with patient as hemoglobin 6.9 this morning. Patient tearful as she was hoping to go home today. Understands and agreeable to plan of care. She reports her right lower extremity discomfort and redness is improving. Denies other symptoms or complaints. This patient was seen in conjunction with Martina Purcell NP. The following represents my independent history and physical examination. Please see below for addendum the above. No significant issues overnight. Hemoglobin dropped to 6.9 and 1 unit of packed red blood cells was ordered. Patient states her leg is feeling much better and she did well with therapy yesterday requiring no ongoing inpatient therapy services. Patient is anxious to go home and I did discuss with her that she would likely be able to go on tomorrow as long as she remains stable. Diet has been advanced. Objective Data Lab / Micro Data Result Diagrams: 03/11/22 05:32 03/11/22 05:32 Physical Exam Const alert, oriented x3 and no apparent distress Constitutional Narrative: Morbidly obese elderly white female lying in bed sleeping with covers over her head and snoring but awakens easily, appears comfortable nontoxic, appears comfortable General Appearance: uncooperative HEENT head/scalp atraumatic and moist oral mucous membranes Head and Scalp: normocephalic Resp normal respiratory effort, no retractions, no use of accessory muscles and clear to auscultation bilaterally Auscultation: Negative for crackles, rales, rhonchi, wheezes or diminished lung sounds Cardio regular rate, regular rhythm, S1 normal heart sound, S2 normal heart sound, no murmurs, no rub, no gallops, no clicks and no JVD Cardio Narrative: 2 out of 6 to 3 out of 6 systolic murmur GI normal to inspection, nondistended, normoactive bowel sounds, soft to palpation, non-tender and non-distended Extremity Extremity Narrative: Right lower extremity with persistent erythema and ecchymosis however seems to be improving, no tenderness with palpation and edema has improved, no cyanosis or clubbing Neuro oriented x3, CN's II-XII intact bilaterally, moves all extremities and no focal motor deficits Neuro Narrative: Generalized weakness-mild Sensorium / Orientation: awake, alert, oriented to person, oriented to place and oriented to time Speech: speech normal Assessment & Plan Assessment/Plan (1) Gastric ulcer: (2) Anemia: (3) Cellulitis: (4) Coagulopathy: PLAN: Plan Assessment: Right lower extremity cellulitis -Suspect nidus for infection is wound on dorsum of right foot Bleeding gastric ulcer/PUD Coagulopathy Acute on chronic anemia Iron deficiency Generalized weakness/debility Concern for malnutrition Atrial fibrillation status post ablation 03/07/2022 CKD stage IIIb History of collagenous colitis CAD status post CABG Hypertension Hyperlipidemia History of pseudoseizure History of mild cognitive impairment Hypothyroidism Morbid obesity Plan: -Continue Unasyn and vancomycin -Leg continues to look better and feel better -Discontinue aspirin and Eliquis -Hold for 5 days then restart -Okay to advance diet -EGD done on 03/10/2022 showed normal upper third of esophagus and middle third of esophagus, mild Schatzki's ring, large hiatal hernia, oozing gastric ulcer with visible vessel that was treated with injection, heater probe, clips, normal first portion of the duodenum -Continue Protonix drip for another 24 hours and then Protonix oral p.o. twice daily -Follow-up with GI 2 weeks after discharge -Plan for repeat EGD in 4 weeks per gastroenterology documentation -INR was elevated unclear etiology oral intake has not been great and diet has b een poor at home prior to admission -Vitamin K oral given with repeat INR in a.m. however I do suspect it may take a few days for her INR to normalize -PT/OT has evaluated the patient and are continuing to see however the patient did quite well and is safe for discharge home Charges/Coding Visit Charges Inpatient E&M: 67849 Subs Hosp L2
[2022-03-11 16:13] LABS: Hematocrit 27.5 % (37-47); Hemoglobin 8.1 g/dL (12.0-15.0)
[2022-03-11] MEDS: 0.9% Saline Lock 10 ML Syringe IV ×2 (18:33→20:50)
[2022-03-11 20:17] LABS: Hematocrit 26.8 % (37-47); Hemoglobin 7.9 g/dL (12.0-15.0)
[2022-03-12 00:23] LABS: Vancomycin, Trough Level 25.2 ug/mL (5.0-15.0)
--- NOTE | 2022-03-12 01:56 | PCM.RX.CS ---
Consult Pharmacy has been consulted to manage selected antiobiotic: Vancomycin Type of Consult: Follow-up Labs: Sodium 141 mmol/L (136-145) 03/11/22 05:32 Potassium 3.6 mmol/L (3.5-5.1) 03/11/22 05:32 Chloride 108 mmol/L (98-107) H 03/11/22 05:32 Carbon Dioxide 25.0 mmol/L (21.0-32.0) 03/11/22 05:32 Anion Gap 8 (5-15) 03/11/22 05:32 BUN 9 mg/dL (7-18) 03/11/22 05:32 Creatinine 1.01 mg/dL (0.55-1.02) 03/11/22 05:32 Est GFR (MDRD) Af Amer 69 mL/min (>60) 03/11/22 05:32 Est GFR (MDRD) Non-Af 57 mL/min (>60) L 03/11/22 05:32 BUN/Creatinine Ratio 8.9 RATIO (10-20) L 03/11/22 05:32 Glucose 108 mg/dL (74-106) H 03/11/22 05:32 Vancomycin Trough 25.2 ug/mL (5.0-15.0) H 03/11/22 23:28 Microbiology: Microbiology 03/09/22 14:37 Blood Culture (Wb) - Anticubital Left Blood Culture - Preliminary No growth in 48 hours. 03/09/22 14:47 Blood Culture (Wb) - Anticubital Right Blood Culture - Preliminary No growth in 48 hours. 03/09/22 14:35 Urine, Clean Catch Urine Culture - Preliminary Culture exhibits no growth. 03/09/22 16:35 Nasal Secretion SARS-CoV-2 Antigen (Rapid) - Final Goal Trough: 15-20 mcg/mL Pharmacy Plan for Drug Dosing: Pharmacy Service will continue to monitor and adjust dosing as required. TROUGH 25.2. SCr DECREASED FROM 1.14 TO 1.01. HOLD NEXT DOSE AND DRAW RANDOM TROUGH IN 24 HRS Follow-Up Labs: Trough Vancomycin Labs to be done on [date and time ordered]: 03/12 @ 0598 RANDOM
[2022-03-12 02:24] VITALS: BP 110/58; PULSE 59; RESP 20; TEMP 36.7; O2SAT 97
[2022-03-12] MEDS: Cholestyramine/Sucrose 4 GM/PACKET PO (05:51)
[2022-03-12] MEDS: Levothyroxine 112 MCG Tablet PO (05:51)
[2022-03-12 06:33] VITALS: PULSE 84; RESP 24; RESP 26; O2SAT 92
[2022-03-12] MEDS: Albuterol 2.5 MG/3 ML VIAL.NEB. INHALATION (06:33)
[2022-03-12 07:15] LABS: Absolute Lymphocyte Count 1.49 X10^3/uL (0.83-4.51); Absolute Neutrophil Count 7.3 X10^3/uL (2.0-7.7); Basophil# 0.04 X10^3/uL; Basophil% 0.4 % (0-1); Eosinophil# 0.15 X10^3/uL; Eosinophils% 1.5 % (0-5); Hemoglobin 8.2 g/dL (12.0-15.0); Lymphocyte # 1.49 X10^3/ul (0.83-4.51); Lymphocyte % 15.2 % (19-41); Mean Corp Hgb Conc 30.4 g/dL (32-36); Mean Corpuscular Hgb 23.6 pg (27.0-32.0); Mean Corpuscular Volume 77.8 fL (81-99); Mean Platelet Vol. 10.2 fl (6.2-12.0); Monocyte# 0.83 X10^3/uL; Monocyte% 8.5 % (0-10); NRBC Flagged by Analyzer 0 % (0-5); Neutrophil # 7.26 X10^3/uL (2.7-7.7); Neutrophil % 73.9 % (47-70); Platelet Count 200 K/mm3 (150-450); RBC Distribution Width CV 16.3 % (11.6-14.6); RBC Distribution Width SD 46.1 fl (35.1-43.9); Red Blood Count 3.47 M/mm3 (4.2-5.4); White Blood Count 9.8 K/mm3 (4.4-11.0)
[2022-03-12 07:34] LABS: Anion Gap 7 (5-15); BUN 6 mg/dL (7-18); BUN/Creat Ratio 5.5 RATIO (10-20); Calcium,Total 8.6 mg/dL (8.5-10.1); Chloride 110 mmol/L (98-107); Creatinine, Serum 1.09 mg/dL (0.55-1.02); EST Glomerular Filtration Rate 52 mL/min (>60); Est Glom Filt Rate - Afr Amer 63 mL/min (>60); Estimated Creatinine Clearance 40.75 ml/min; Glucose 78 mg/dL (74-106); Potassium 3.3 mmol/L (3.5-5.1); Sodium Level 143 mmol/L (136-145)
[2022-03-12 08:15] VITALS: BP 142/110; PULSE 87; RESP 20; TEMP 36.7; O2SAT 93
[2022-03-12 09:00] VITALS: RESP 18; O2SAT 93
[2022-03-12] MEDS: Furosemide 40 MG Tablet PO (10:07)
[2022-03-12 10:08] VITALS: PULSE 87
[2022-03-12] MEDS: Budesonide 3 MG CAPSULE.EC 9 MG PO (10:08)
[2022-03-12] MEDS: Metoprolol Tartrate 25 MG Tablet PO (10:08)
[2022-03-12] MEDS: Lisinopril 10 MG Tablet PO (10:08)
[2022-03-12] MEDS: Sertraline 50 MG Tablet PO (10:09)
--- NOTE | 2022-03-12 10:30 | PCM.DC ---
Discharge Instructions Diet Discharge Diet: Low fat / Low cholesterol Activity Discharge Activity: Return to Normal Activity Dressing / Incision Call your doctor if your incision/area has: Increased Pain/ Swelling and Increased Redness Call your doctor if you observe: Fever of 101 or Higher, Shortness of breath, Dizziness and Chest pain Follow Up Care Test Results: Test results from this visit will be discussed in further detail at your follow-up appointment, if applicable. Discharge Plan Admission Admit Date/Time: 03/10/22 10:57 Primary Reason for Your Visit: Right leg cellulitis, Anemia/GI bleed Attending Provider: Tommy Draper Primary Care Provider: Bal Benz Consulting Providers: Martina Purcell SYSTEMS TESTING LABORATORY TECHNICIAN ; Myrna Chan Discharge Orders/Prescriptions Prescriptions: New amoxicillin-pot clavulanate 875-125 mg tablet 1 tab PO BID 4 Days Qty: 8 0RF pantoprazole [Protonix] 40 mg tablet,delayed release (DR/EC) 40 mg PO BID Qty: 60 0RF Continued metoprolol tartrate 25 mg tablet 25 mg PO BID Qty: 60 11RF lisinopril 10 mg tablet 10 mg PO DAILY Qty: 90 3RF levothyroxine 112 MCG tablet 112 mcg PO DAILY budesonide 3 MG capsule,delayed,extend.release 9 mg PO DAILY sertraline 50 MG tablet 50 mg PO DAILY cholestyramine (with sugar) [Questran] 4 gram powder in packet 1 ea PO TID benzonatate [Tessalon Perles] 100 mg Capsule 100 mg PO TID PRN (Reason: Cough) nitroglycerin [Nitrostat] 0.4 mg Tablet, Sublingual 0.4 mg SUBLINGUAL Q5M PRN (Reason: chest pain) ondansetron 4 mg tablet,disintegrating 4 mg PO Q8H PRN PRN (Reason: Nausea) Qty: 10 0RF atorvastatin 20 mg tablet 20 mg PO DAILY Qty: 90 3RF furosemide 40 mg tablet See Rx Instructions .ROUTE .COMPLEX Qty: 28 11RF Dose Instruction: TAKE 1 TABLET BY MOUTH DAILY Rx Instructions: TAKE 1 TABLET BY MOUTH DAILY Held aspirin 81 MG tablet,chewable 81 mg PO DAILY Hold Instructions: Resume on 03/16/22. apixaban 5 mg tablet 5 mg PO BID Qty: 60 11RF Hold Instructions: Resume on 03/16/22. Rx Instructions: TAKE 1 TABLET BY MOUTH TWICE A DAY Discontinued omeprazole 40 MG capsule,delayed release(DR/EC) 40 mg PO DAILY famotidine [Pepcid] 20 mg Tablet 20 mg PO DAILY prednisone 20 mg Tablet 20 mg PO DAILY Referrals / Follow Up: Edvin Keyes DO [STAFF PHYSICIAN] - Within 2 Weeks Bal Benz [Primary Care Provider] - In 1 Week Juju Ch PA [PHYSICIAN HOSPITAL SUPERINTENDENT] - See Referral Note (As scheduled 04/06/2022) Disposition Disposition (needs filled in before D/C Order can be placed): Home, Self Care
[2022-03-12 11:34] VITALS: BP 138/70; PULSE 68; RESP 18; TEMP 36.8; O2SAT 93
--- NOTE | 2022-03-12 11:46 | PCM.DC.SUM ---
Documented by User: Martina Purcell NP, [employer] JUSTICE-C 03/12/22 11:51 Providers Date of Admission: 03/10/22 Date of Discharge: 03/12/22 Primary Care Physician: Bal Benz Consultations 03/09/22 13:37 Consult: Gastroenterology Routine Consulting Provider: Sarita Gastroentermary Reason for Consult: Anemia EMERGENT Consult: No MD Notified: Yes Date Notified: 03/09/22 Time Notified: 13:39 Method of Notification: Text 03/09/22 13:40 Consult: Onc/Wound/nanotechnology engineering technologist Routine Comment: Reason for Consult:: aguilar arm wounds Reason For Visit: RLE CELLULITIS Diagnosis Discharge Diagnosis (1) Gastric ulcer: Status: Acute Code(s): K25.9 - Gastric ulcer, unspecified as acute or chronic, without hemorrhage or perforation (2) Anemia: Status: Acute Code(s): D64.9 - Anemia, unspecified (3) Cellulitis: Status: Acute Code(s): L03.90 - Cellulitis, unspecified (4) Coagulopathy: Status: Acute Code(s): D68.9 - Coagulation defect, unspecified Medications at Discharge Home Medications levothyroxine 112 mcg tablet 112 mcg PO DAILY thyroid 07/19/17 aspirin 81 mg chewable tablet 81 mg PO DAILY health maintenance 06/08/20 budesonide 3 mg capsule,delayed,extended release 9 mg PO DAILY asthma 06/08/20 sertraline 50 mg tablet 50 mg PO DAILY DEPRESSION 11/30/20 cholestyramine (with sugar) 4 gram powder for susp in a packet (Questran) 1 ea PO TID 04/09/21 benzonatate 100 mg capsule (Tessalon Perles) 100 mg PO TID PRN Cough 05/07/21 nitroglycerin 0.4 mg sublingual tablet (Nitrostat) 0.4 mg sublingual Q5M PRN chest pain 05/07/21 ondansetron 4 mg disintegrating tablet 4 mg PO Q8H PRN PRN Nausea #10 tabs 05/07/21 atorvastatin 20 mg tablet 20 mg PO DAILY #90 tabs 05/10/21 apixaban 5 mg tablet 5 mg PO BID BLOOD THINNER #60 tabs 06/09/21 furosemide 40 mg tablet See Rx Instructions .Route .COMPLEX #28 TABLETS 09/07/21 metoprolol tartrate 25 mg tablet 25 mg PO BID #60 TABLETS 01/01/22 lisinopril 10 mg tablet 10 mg PO DAILY BP #90 tabs 01/17/22 amoxicillin 875 mg-potassium clavulanate 125 mg tablet 1 tab PO BID 4 days #8 tabs 03/12/22 pantoprazole 40 mg tablet,delayed release (Protonix) 40 mg PO BID #60 tabs 03/12/22 Hospital Course Operations None Procedures EGD Summary of Care Provided Hospital Course: Patient is a 76-year-old female admitted 03/09/2022 due to right lower extremity redness and weakness. 1.? Right lower extremity cellulitis-mild leukocytosis resolved.? IV Unasyn,? IV Vanc during admission.? Right lower extremity significantly improved. Transition to oral Augmentin to complete course. Follow-up with PCP within 1 week. 2. Acute microcytic anemia secondary to upper GI bleed-GI consulted.?Patient underwent EGD which demonstrated mild Schatzki ring, large hiatal hernia, oozing gastric ulcer with visible vessel which was injected and treated with heater probe.? Clips placed.? Hold aspirin and Eliquis for 5 days, resume 03/16/2022. Continue PPI twice daily. Follow-up with GI in 2 weeks. Plan for repeat EGD in 4 weeks per GI recommendation. 3. Weakness, debility-likely combination of #1/#2.? Improved.? Per PT, patient okay to return home at discharge.? 4. Atrial fibrillation with recent ablation 03/07/2022 at [place]-on Eliquis, metoprolol.? Resume Eliquis 03/16/2022. Follow-up with cardiology as scheduled. 5. History of collagenous colitis-on budesonide.? Prior colonoscopy [address] Cummings. History of collagenous colitis. 6. CKD stage IIIb-at baseline. 7. CAD- on statin, metoprolol. 8. Hypertension-stable, continue metoprolol, lisinopril. 9. Hyperlipidemia-continue statin. 10. History of pseudoseizure-Per PCP documentation.? Continue outpatient follow-up.? Previously on Keppra which was discontinued in 2019.? Followed by [facility]. 11. History of cognitive impairment/memory concerns-Per PCP note, patient would not cooperate with [facility].? Recommended referral to neuropsych for formal cognitive assessment. 12. Hypothyroidism-continue Synthroid regimen. Physical Exam Const alert, oriented x3 and no apparent distress Orientation / Consciousness: awake, oriented to person, oriented to place and oriented to time HEENT normocephalic and moist oral mucous membranes Eyes PERRL, EOMs intact bilaterally and conjunctivae normal Neck no lymphadenopathy Resp normal respiratory effort and clear to auscultation bilaterally Cardio regular rate, regular rhythm and no murmurs Peripheral Pulses: pulses 2+ throughout GI normal to inspection, nondistended, normoactive bowel sounds, non-tender and non-distended Extremity normal to inspection Skin no rashes or lesions noted Skin Narrative: Right lower extremity erythema significantly improved. Warmth resolved. Lesions: no lesions Rashes: no rashes Trauma: no lacerations or abrasions Neuro CN's II-XII intact bilaterally, no focal motor deficits, no sensory deficits noted and deep tendon reflexes 2+ bilaterally Psych mental status grossly normal and affect normal Patient seen and examined prior to discharge. Physical assessment as noted above. Patient is stable for discharge with follow up recommendations as noted above. This patient was seen by ADAM Antunez under the supervision of Dr. Draper. Time spent examining patient, reviewing data and subsequent management of care: 24 minutes Weight / BMI Weight Weight: 246 lb 14.684 oz Body Mass Index (BMI) 41.1 ABG / Lab / Microbiology Data Result Diagrams: 03/12/22 06:56 03/12/22 06:56 Laboratory: Laboratory Results - last 24 hr 03/11/22 06:50: Crossmatch See Detail 03/11/22 15:50: Hgb 8.1 L, Hct 27.5 L 03/11/22 20:05: Hgb 7.9 L, Hct 26.8 L 03/11/22 23:28: Vancomycin Trough 25.2 H 03/12/22 06:56: WBC 9.8, RBC 3.47 L, Hgb 8.2 L, Hct 27.0 L, MCV 77.8 L, MCH 23.6 L, MCHC 30.4 L, RDW Std Deviation 46.1 H, RDW Coeff of Jessica 16.3 H, Plt Count 200, MPV 10.2, Immature Gran % (Auto) 0.500, Neut % (Auto) 73.9 H, Lymph % (Auto) 15.2 L, Amador % (Auto) 8.5, Eos % (Auto) 1.5, Baso % (Auto) 0.4, Absolute Neuts (auto) 7.3, Absolute Lymphs (auto) 1.49, Nucleated RBC % 0 03/12/22 06:56: Sodium 143, Potassium 3.3 L, Chloride 110 H, Carbon Dioxide 26.0, Anion Gap 7, BUN 6 L, Creatinine 1.09 H, Estim Creat Clear Calc 40.75, Est GFR (MDRD) Af Amer 63, Est GFR (MDRD) Non-Af 52 L, BUN/Creatinine Ratio 5.5 L, Glucose 78, Calcium 8.6 Microbiology: Microbiology 03/09/22 14:35 Urine, Clean Catch Urine Culture - Final Culture exhibits no growth. 03/09/22 14:37 Blood Culture (Wb) - Anticubital Left Blood Culture - Preliminary No growth in 48 hours. 03/09/22 14:47 Blood Culture (Wb) - Anticubital Right Blood Culture - Preliminary No growth in 48 hours. 03/09/22 16:35 Nasal Secretion SARS-CoV-2 Antigen (Rapid) - Final D/C Instructions Discharge Diet: Low fat / Low cholesterol Call your doctor if your incision/area has: Increased Pain/ Swelling and Increased Redness Call your doctor if you observe: Fever of 101 or Higher, Shortness of breath, Dizziness and Chest pain Meaningful Use Info Meaningful Use Diagnoses (Choose all that apply): None applicable Discharge Plan Admission Admit Date/Time: 03/10/22 10:57 Primary Reason for Your Visit: Right leg cellulitis, Anemia/GI bleed Attending Provider: Tommy Draper Primary Care Provider: Bal Benz Consulting Providers: Martina Purcell [employer] JUSTICE ; Myrna Chan Discharge Orders/Prescriptions Prescriptions: New amoxicillin-pot clavulanate 875-125 mg tablet 1 tab PO BID 4 Days Qty: 8 0RF pantoprazole [Protonix] 40 mg tablet,delayed release (DR/EC) 40 mg PO BID Qty: 60 0RF Continued metoprolol tartrate 25 mg tablet 25 mg PO BID Qty: 60 11RF lisinopril 10 mg tablet 10 mg PO DAILY Qty: 90 3RF levothyroxine 112 MCG tablet 112 mcg PO DAILY budesonide 3 MG capsule,delayed,extend.release 9 mg PO DAILY sertraline 50 MG tablet 50 mg PO DAILY cholestyramine (with sugar) [Questran] 4 gram powder in packet 1 ea PO TID benzonatate [Tessalon Perles] 100 mg Capsule 100 mg PO TID PRN (Reason: Cough) nitroglycerin [Nitrostat] 0.4 mg Tablet, Sublingual 0.4 mg SUBLINGUAL Q5M PRN (Reason: chest pain) ondansetron 4 mg tablet,disintegrating 4 mg PO Q8H PRN PRN (Reason: Nausea) Qty: 10 0RF atorvastatin 20 mg tablet 20 mg PO DAILY Qty: 90 3RF furosemide 40 mg tablet See Rx Instructions .ROUTE .COMPLEX Qty: 28 11RF Dose Instruction: TAKE 1 TABLET BY MOUTH DAILY Rx Instructions: TAKE 1 TABLET BY MOUTH DAILY Held aspirin 81 MG tablet,chewable 81 mg PO DAILY Hold Instructions: Resume on 03/16/22. apixaban 5 mg tablet 5 mg PO BID Qty: 60 11RF Hold Instructions: Resume on 03/16/22. Rx Instructions: TAKE 1 TABLET BY MOUTH TWICE A DAY Discontinued omeprazole 40 MG capsule,delayed release(DR/EC) 40 mg PO DAILY famotidine [Pepcid] 20 mg Tablet 20 mg PO DAILY prednisone 20 mg Tablet 20 mg PO DAILY Referrals / Follow Up: Edvin Keyes DO [STAFF PHYSICIAN] - Within 2 Weeks Bal Benz [Primary Care Provider] - In 1 Week Juju Ch PA [PHYSICIAN LEAD ANDROID DEVELOPER] - See Referral Note (As scheduled 04/06/2022) Disposition Disposition (needs filled in before D/C Order can be placed): Home, Self Care Documented by User: Dr. Tommy Draper MD 03/12/22 13:48 Providers Date of Admission: 03/10/22 Reason For Visit: RLE CELLULITIS Diagnosis Discharge Diagnosis (1) Gastric ulcer: Status: Acute Code(s): K25.9 - Gastric ulcer, unspecified as acute or chronic, without hemorrhage or perforation (2) Anemia: Status: Acute Code(s): D64.9 - Anemia, unspecified (3) Cellulitis: Status: Acute Code(s): L03.90 - Cellulitis, unspecified (4) Coagulopathy: Status: Acute Code(s): D68.9 - Coagulation defect, unspecified Medications at Discharge Home Medications levothyroxine 112 mcg tablet 112 mcg PO DAILY thyroid 07/19/17 aspirin 81 mg chewable tablet 81 mg PO DAILY health maintenance 06/08/20 budesonide 3 mg capsule,delayed,extended release 9 mg PO DAILY asthma 06/08/20 sertraline 50 mg tablet 50 mg PO DAILY DEPRESSION 11/30/20 cholestyramine (with sugar) 4 gram powder for susp in a packet (Questran) 1 ea PO TID 04/09/21 benzonatate 100 mg capsule (Tessalon Perles) 100 mg PO TID PRN Cough 05/07/21 nitroglycerin 0.4 mg sublingual tablet (Nitrostat) 0.4 mg sublingual Q5M PRN chest pain 05/07/21 ondansetron 4 mg disintegrating tablet 4 mg PO Q8H PRN PRN Nausea #10 tabs 05/07/21 atorvastatin 20 mg tablet 20 mg PO DAILY #90 tabs 05/10/21 apixaban 5 mg tablet 5 mg PO BID BLOOD THINNER #60 tabs 06/09/21 furosemide 40 mg tablet See Rx Instructions .Route .COMPLEX #28 TABLETS 09/07/21 metoprolol tartrate 25 mg tablet 25 mg PO BID #60 TABLETS 01/01/22 lisinopril 10 mg tablet 10 mg PO DAILY BP #90 tabs 01/17/22 amoxicillin 875 mg-potassium clavulanate 125 mg tablet 1 tab PO BID 4 days #8 tabs 03/12/22 pantoprazole 40 mg tablet,delayed release (Protonix) 40 mg PO BID #60 tabs 03/12/22 ABG / Lab / Microbiology Data Result Diagrams: 03/12/22 06:56 03/12/22 06:56 Discharge Plan Admission Admit Date/Time: 03/10/22 10:57 Primary Reason for Your Visit: Right leg cellulitis, Anemia/GI bleed Attending Provider: Tommy Draper Primary Care Provider: Bal Bnez Consulting Providers: Martina Purcell [employer] JUSTICE ; Myrna Chan Discharge Orders/Prescriptions Prescriptions: New amoxicillin-pot clavulanate 875-125 mg tablet 1 tab PO BID 4 Days Qty: 8 0RF pantoprazole [Protonix] 40 mg tablet,delayed release (DR/EC) 40 mg PO BID Qty: 60 0RF Continued metoprolol tartrate 25 mg tablet 25 mg PO BID Qty: 60 11RF lisinopril 10 mg tablet 10 mg PO DAILY Qty: 90 3RF levothyroxine 112 MCG tablet 112 mcg PO DAILY budesonide 3 MG capsule,delayed,extend.release 9 mg PO DAILY sertraline 50 MG tablet 50 mg PO DAILY cholestyramine (with sugar) [Questran] 4 gram powder in packet 1 ea PO TID benzonatate [Tessalon Perles] 100 mg Capsule 100 mg PO TID PRN (Reason: Cough) nitroglycerin [Nitrostat] 0.4 mg Tablet, Sublingual 0.4 mg SUBLINGUAL Q5M PRN (Reason: chest pain) ondansetron 4 mg tablet,disintegrating 4 mg PO Q8H PRN PRN (Reason: Nausea) Qty: 10 0RF atorvastatin 20 mg tablet 20 mg PO DAILY Qty: 90 3RF furosemide 40 mg tablet See Rx Instructions .ROUTE .COMPLEX Qty: 28 11RF Dose Instruction: TAKE 1 TABLET BY MOUTH DAILY Rx Instructions: TAKE 1 TABLET BY MOUTH DAILY Held aspirin 81 MG tablet,chewable 81 mg PO DAILY Hold Instructions: Resume on 03/16/22. apixaban 5 mg tablet 5 mg PO BID Qty: 60 11RF Hold Instructions: Resume on 03/16/22. Rx Instructions: TAKE 1 TABLET BY MOUTH TWICE A DAY Discontinued omeprazole 40 MG capsule,delayed release(DR/EC) 40 mg PO DAILY famotidine [Pepcid] 20 mg Tablet 20 mg PO DAILY prednisone 20 mg Tablet 20 mg PO DAILY Referrals / Follow Up: Friend,DO Edvin [STAFF PHYSICIAN] - Within 2 Weeks Bal Benz [Primary Care Provider] - In 1 Week Juju Ch PA [PHYSICIAN LEAD ANDROID DEVELOPER] - See Referral Note (As scheduled 04/06/2022) Disposition Disposition (needs filled in before D/C Order can be placed): Home, Self Care Charges/Coding Addendum Addendum: Addendum: Dr. Draper I personally examined the patient and reviewed the chart. I agree with the above. 76-year-old female presented to the ER with weakness on the right lower extremity redness and swelling. She was also found to have an acute microcytic anemia and an EGD was performed which demonstrated a gastric ulcer with a visible vessel. This was treated by gastroenterology she was also started on antibiotics and with resolution of her cellulitis her weakness has also improved significantly. We will have her see PT and OT today with the anticipation of her going home and will hopefully be able to get her home health set up tomorrow if necessary. As for her GI bleed we will have her continue to hold her Eliquis for a few days and can restart as an outpatient. I do recommend close outpatient follow-up to monitor her CBC given her recent anemia. Also been for from a PPI and outpatient follow-up with gastroenterology. I discussed with her the plan for discharge today she expressed understanding of the risk and going home and would go home today. Continue with antibiotics for another 4 days. Visit Charges Inpatient E&M: 04349 Disch Hosp
== END 2022-03-12 13:50 | disposition home or self-care (01) | DRG 602 ==
LOC: ED 11:17 → MS3 12:26
PROVIDERS: Anesthesiology; Family Medicine; Internal Medicine; Internal Medicine Gastroenterology; Admitting Provider Nurse Practitioner Family; Emergency Provider Emergency Medicine; Visit Provider Family Medicine
PROC: 0DJ08ZZ Inspection of Upper Intestinal Tract, Via Natural or Artificial Opening Endoscopic (ICD-10-PCS; CPT 43235; principal; 2022-03-10 08:30)
DX: L03.115 Cellulitis of right lower limb (principal); K25.4 Chronic or unspecified gastric ulcer with hemorrhage; D68.9 Coagulation defect, unspecified; E87.1 Hypo-osmolality and hyponatremia; Z68.41 Body mass index [BMI] 40.0-44.9, adult; E66.01 Morbid (severe) obesity due to excess calories; N18.32 Chronic kidney disease, stage 3b; I48.91 Unspecified atrial fibrillation; E03.9 Hypothyroidism, unspecified; E78.5 Hyperlipidemia, unspecified; F41.9 Anxiety disorder, unspecified; I25.10 Atherosclerotic heart disease of native coronary artery without angina pectoris; I12.9 Hypertensive chronic kidney disease with stage 1 through stage 4 chronic kidney disease, or unspecified chronic kidney disease; D50.9 Iron deficiency anemia, unspecified; K44.9 Diaphragmatic hernia without obstruction or gangrene; R53.81 Other malaise; Z79.82 Long term (current) use of aspirin; Z79.51 Long term (current) use of inhaled steroids; M62.81 Muscle weakness (generalized); Z79.01 Long term (current) use of anticoagulants; Z95.1 Presence of aortocoronary bypass graft
CPT/HCPCS: 36415; 71046; 80048; 80053; 80202; 81001; 82607; 82728; 82746; 83540; 83550; 84443; 85014; 85018; 85025; 85610; 85730; 86850; 86870; 86900; 86901; 86902; 86905; 86920; 86922; 87040; 87086; 87811; 93005; 93971; 94640; 97162; 97164; 97802; 99251; 99285; J7040; J7050; P9016; A4216; G0463; J0295; J2916; J3490

== ENCOUNTER 2022-07-26 08:28 | Outpatient (RCR) | payer MEDICARE, MEDICAID, SELFPAY ==
[2022-07-26 09:04] VITALS: BP 146/50; PULSE 89; TEMP 36.4
--- NOTE | 2022-07-26 10:12 | PCM.WC.HP ---
History of Present Illness Date of Service: 07/26/22 Chief Complaint: Right lower extremity wound History of Wound: Patient is a 77-year-old female who presents to the wound care center as a referral by her primary care physician for a right lower extremity wound. Patient states that she has history of stage III CKD, TIA, and heart cath. She states following the heart cath in February she developed cellulitis of the right lower extremity. She states that she was treated with antibiotics and the cellulitis resolved. She states that however following this in May she bumped the right lower extremity against her bed frame creating a skin flap/wound. She was advised to not remove the skin and just dressed with triple antibiotic ointment. However she followed up with primary care because she again developed some redness around the wound and was placed on oral antibiotics 3 weeks ago. This has aided in resolving the erythema about the wound however they report the wound has not decreased in size since May. Patient denies being diabetic and denies smoking. She lives alone at home but her daughter is only 1 mile from the house and frequently visits. [facility], LATER [facility] Medical History (Updated 07/26/22 @ 13:[address] Erich Naylor, DPM) Acute gastric ulcer Alzheimer's dementia Anemia Anxiety Arthritis Atherosclerosis of coronary artery of [place] heart without angina pectoris Cardiology follow-up encounter Chronic anticoagulation Chronic cough Coagulopathy Difficulty swallowing Easy bruising Essential (primary) hypertension Excessive bleeding Fatty liver Gastric reflux GERD (gastroesophageal reflux disease) Hiatal hernia History of atrial fibrillation History of echocardiogram History of edema History of heart attack History of Holter monitoring History of IBS History of renal disease History of stress test HLD (hyperlipidemia) Hypertension Hypothyroidism Iron deficiency Low iron Non-smoker Obesity (BMI 30-39.9) Open wound Paroxysmal atrial fibrillation Pseudoseizures Schatzki's ring Shortness of breath on exertion Stage 3b chronic kidney disease (CKD) Syncope TIA (transient ischemic attack) Wears dentures Wears glasses Home Medications levothyroxine 112 mcg tablet 112 mcg PO DAILY thyroid 07/19/17 [History Last Taken 11/30/20] budesonide 3 mg capsule,delayed,extended release 9 mg PO DAILY asthma 06/08/20 [History Last Taken 11/30/20] sertraline 50 mg tablet 50 mg PO DAILY DEPRESSION 11/30/20 [History Last Taken 11/30/20] apixaban 5 mg tablet 5 mg PO BID BLOOD THINNER #60 tabs 06/09/21 [Rx Last Taken Unknown] furosemide 40 mg tablet See Rx Instructions .Route .COMPLEX #28 TABLETS 09/07/21 [Rx Last Taken Unknown] lisinopril 10 mg tablet 10 mg PO DAILY BP #90 tabs 01/17/22 [Rx Last Taken Unknown] ferrous sulfate 325 mg (65 mg iron) tablet 325 mg PO BID 05/11/22 [History Last Taken Unknown] pantoprazole 40 mg tablet,delayed release 40 mg PO BID 05/11/22 [History Last Taken Unknown] aspirin 81 mg capsule 81 mg PO DAILY 07/06/22 [History Last Taken Unknown] atorvastatin 20 mg tablet 20 mg PO QHS 07/06/22 [History Last Taken Unknown] loperamide 2 mg tablet (Imodium A-D) 2 mg PO Q4H PRN LOOSE STOOLS 07/06/22 [History Last Taken Unknown] Allergy/AdvReac Type Severity Reaction Status Date / Time procaine [From Novocain] AdvReac Other Verified 07/24/22 09:37 Family History Mother Heart disease Father Heart disease Alcoholism Surgical History H/O cardiac radiofrequency ablation H/O coronary artery bypass surgery (01/29/08) History of colonoscopy History of esophagogastroduodenoscopy (EGD) History of left heart catheterization (01/12/19) Status post ablation of atrial fibrillation Social History household members: none Smoking Status: Never smoker alcohol intake: never substance use type: does not use caffeine: Yes Type: coffee Number of servings: 6 ROS Constitutional Constitutional: Denies chills, fever(s) or night sweats Eyes Eyes: Denies blurry vision, double vision or dry eyes ENT HEENT: Denies nasal congestion, nasal discharge or sore throat Cardiovascular Cardiovascular: Denies chest pain or claudication Respiratory/Chest Respiratory/Chest: Denies cough or wheezing Gastrointestinal Gastrointestinal: Denies abdominal pain, diarrhea, nausea or vomiting Genitourinary Genitourinary: Denies dysuria, hematuria, urinary frequency, urinary hesitancy, urinary incontinence or urinary urgency Musculoskeletal Musculoskeletal: Denies joint pain, joint stiffness or joint swelling Integumentary Integumentary: Denies dry skin, erythema, lesions or pruritus Neurologic Neurologic: Denies confusion, dizziness or seizures Hematologic/Lymphatic Hematologic/Lymphatic: Denies easy bleeding or easy bruising Vital Signs Vital Signs Vital Signs: 07/26/22 09:04 Temperature 97.6 F L Temperature Source Temporal Pulse Rate 89 Blood Pressure 146/50 H Blood Pressure Mean 82 Blood Pressure Source Monitor Blood Pressure Position Sitting Blood Pressure Location Right Arm Physical Exam Const alert, oriented x3 and no apparent distress General Appearance: cooperative HEENT normocephalic Eyes General Eye: normal appearance of both eyes Neck General: normal visual inspection Lymph Lymphatic: no lymphadenopathy noted and no lymphedema noted Resp normal respiratory effort Cardio regular rate and regular rhythm Extremity no joint enlargement, no calf tenderness and no pedal edema Extremity Narrative: Right lower extremity demonstrates varicosities. Skin is thin/atrophic. DP and PT pulses weakly palpable. Capillary fill time is less than 5 seconds. Normal temperature gradient with absent pedal hair growth Left lower extremity demonstrates varicosities. Skin is thin/atrophic. DP and PT pulses weakly palpable. Capillary fill time is less than 5 seconds. Normal temperature gradient with absent pedal hair growth Skin no rashes or lesions noted, skin turgor normal and no jaundice Wound Narrative: There is a traumatic ulceration noted to the mid lateral calf secondary to contact with a bed frame. Ulceration is superficial and circular in nature. There is dried hemolyzed blood and some fibrotic tissue within the wound bed. Upon removal base is granular. There is localized rubor with some edema about the ulceration. There is no malodor, no purulent drainage, no palpable fluctuance/bogginess, no visible abscess formation, or other localized signs of infection. Neuro moves all extremities Debridement Note Debridement Note Wound debrided: Right lateral lower extremity Laterality: Right Wound Grade/Stage: Rader stage I Type of Debridement: Excisional debridement Anesthesia Used: 5% Lidocaine Gel Depth: Down to and including healthy tissue and in the subcutaneous layer Percentage of wound debrided: 100 Instrument Used: 3mm curette Tissue Removed: Fibrous, devitalized subcutaneous, biofilm, slough Severity: Fat Layer Exposed Amount of bleeding with debridement: Mild Bleeding Controlled with: Compression and gauze Patient tolerated procedure: Patient tolerated procedure well Post-Debridement Measurements and Additional Note: Post-Debridement Measurements/Treatment LYN - Nurse 1 - General Ulcer Assessment Start: 07/26/22 09:04 Freq: Status: Active Protocol: JOHAN Activity Type Activity Date Activity User E-sign Co-sign Detail Recorded Client Recorded Date Recorded By Document 07/26/22 09:04 ISAURA [id number] 07/26/22 09:10 KR 07/26/22 09:04 - Today's Visit Information Type of service Initial Visit Arrival Mode Ambulatory Patient Identification Verified (Name & Yes ) Vital Signs Temperature (97.8 F-99.1 F) 97.6 F L Temperature Source Temporal Pulse Rate (60-100) 89 Pulse Location Monitor Blood Pressure (90/60-120/80) 146/50 H Blood Pressure Mean 82 Source Monitor Position Sitting Blood Pressure Location Right Arm History Since Last Visit- (Skip if this is Patient's initial visit) Have you changed medications since your No last visit? Any new allergies or adverse reactions No Had a fall/change in ADL's that may No increase risk of falls Signs or symptoms of abuse and/or No neglect since last visit Have you been in the hospital since your No last visit? Has dressing in place as prescribed No Has compression in place as prescribed N/A Has offloadiing in place as prescribed N/A Experienced any changes in pain level or No management Left Footwear Regular Shoe Right Footwear Regular Shoe Pain Scale: 0-10 Numeric Is Patient Pain Free? Yes LYN - Nurse 1 - General Ulcer Measurement Start: 07/26/22 09:04 Freq: Status: Active Protocol: Activity Type Activity Date Activity User E-sign Co-sign Detail Recorded Client Recorded Date Recorded By Document 07/26/22 09:04 ISAURA [id number] 07/26/22 09:10 KR 07/26/22 09:04 Wound Center Nurse 1 #1 Right Lateral leg -Current Size (cm) - Length 1.8 -Current Size (cm) - Width 1.5 -Current Size (cm) - Depth 0.1 -Total Square Cm 2.70 -Exudate Amt Small -Exudate Type Serosanguineous -Wound Margin Distinct, Outline Attached -Granulation Amt Medium (34-66%) -Granulation Quality [place] -Necrosis Amt Small (1-33%) -Necrotic Tissue Type Adherent Slough -Texture (Melissa-wound Skin Appearance) Assessed, Scarring -Moisture (Melissa-wound Skin Appearance) No Abnormality, Assessed -Color (Melissa-wound Skin Appearance) No Abnormality, Assessed -Temperature (Melissa-wound Skin No Abnormality Appearance) (Pt Warm) -Tenderness on Palpation (Melissa-wound No Skin Appearance) -Ulcer Cleansing Rinsed/ Irrigated with Saline -Foul Odor after Cleansing No -Anesthetic Used 5% Lidocaine Gel Right Calf (cm) 42 Right Ankle (cm) 27 Left Calf (cm) 41.5 Left Ankle (cm) 27 WC - Nurse 2 - General Ulcer CM Notes Start: 07/26/22 09:04 Freq: Status: Active Protocol: Activity Type Activity Date Activity User E-sign Co-sign Detail Recorded Client Recorded Date Recorded By Document 07/26/22 10:07 JOSEPH [id number] 07/26/22 10:11 JOSEPH 07/26/22 10:07 Wound Center Nurse 2 #1 Right Lateral leg -Time 10:08 -Correct Patient Yes -Correct Side, Site, Position Yes -Correct Procedure Yes -Procedure Performed Yes -Type of Procedure Debridement -Clinical Debridement Subcutaneous -Tissue Removed Subcutaneous -Post Debridement (cm) - Length 1.8 -Post Debridement (cm) - Width 1.4 -Post Debridement (cm) - Depth 0.1 -Total Square (Post) (cm) 2.52 -Area of Debridement (cm) - Length 1.8 -Area of Debridement (cm) - Width 1.4 -Total Square (Area) (cm) 2.52 -Tunneling No -Undermining/Tunneling No -Circular Undermining No -Wound/Ulcer Outcome Not Healed -Ulcer Cleansing Rinsed/ Irrigated with Saline -Foul Odor after Cleansing No -Bioengineered Tissue No -Bleeding Controlled with Pressure -Treatment Response Procedure Tolerated Well -Offloading No -Debridement - Subq, 1st 20sq cm Yes Pain Scale: 0-10 Numeric Is Patient Pain Free? Yes Assessment/Plan Assessment/Plan (1) Iron (Fe) deficiency anemia: CODE(S): D50.9 - Iron deficiency anemia, unspecified (2) Essential (primary) hypertension: CODE(S): I10 - Essential (primary) hypertension (3) HLD (hyperlipidemia): CODE(S): E78.5 - Hyperlipidemia, unspecified QUALIFIERS: Hyperlipidemia type: unspecified Qualified Code(s): E78.5 - Hyperlipidemia, unspecified (4) Non-pressure chronic ulcer of right calf with fat layer exposed: CODE(S): L97.212 - Non-pressure chronic ulcer of right calf with fat layer exposed (5) Traumatic ulcer of right lower leg with fat layer exposed: CODE(S): L97.912 - Non-pressure chronic ulcer of unspecified part of right lower leg with fat layer exposed (6) Delayed healing of traumatic wound: CODE(S): T14.8XXD - Other injury of unspecified body region, subsequent encounter PLAN: Plan Patient seen and evaluated I discussed her case today and non-healing traumatic lower extremity ulceration. Ulceration to the right lower extremity was debrided as noted in the clinical panel above. Ulceration measures 1.8 cm x 1.4 cm x 0.1 cm. No signs of infection. Ulceration demonstrates healthy granular base postdebridement. Abbey moistened with hydrogel applied to the wound site and dressed with a coverlet. Tubigrip stocking applied to the right lower extremity. She is to change dressings daily, daughter will assist in changing the dressings. Dressing supplies were ordered to be sent to her house. I discussed with patient continuing to elevate her lower extremities to control any edema about the lower extremity/wound site to aid in healing. She does demonstrate very weak pedal pulses bilaterally. Vascular studies for arterial and venous were ordered today. Patient had recently completed oral course of outpatient antibiotic therapy. I did discuss signs of infection to observe for today. I discussed if she experiences any increasing redness about the wound site that moves up the leg, any purulent drainage from the wound site, any malodor, or if she experiences any nausea, vomiting, fever greater than 101 degrees, chills that these are signs of a progressing infection and she needs to report to the ED. She voices understanding of this today. All questions answered. She is to return to the wound care center in in 2 weeks for follow-up. She may return sooner if she has any problems. She may also call sooner should she have any questions or concerns. Note: [employer] speech recognition lumber tying machine operator software was used to create portions of this document. Sound-alike and misspelled words, as well as other lumber tying machine operator errors may be contained in the documentation. The problems addressed require a low medical decision making level which includes two or more minor problems, a stable chronic illness, or an acute uncomplicated illness or injury. The medical decision making level is low. There is noted low risk of morbidity after considering this treatment plan and diagnostic data.
== END 2022-08-08 23:59 | disposition home or self-care (01) ==
LOC: WC 08:28
PROVIDERS: Visit Provider Student in an Organized Health Care Education/Training Program
DX: L97.212 Non-pressure chronic ulcer of right calf with fat layer exposed (principal); L97.912 Non-pressure chronic ulcer of unspecified part of right lower leg with fat layer exposed; N18.32 Chronic kidney disease, stage 3b; D50.9 Iron deficiency anemia, unspecified; Z60.2 Problems related to living alone; I12.9 Hypertensive chronic kidney disease with stage 1 through stage 4 chronic kidney disease, or unspecified chronic kidney disease; Z79.01 Long term (current) use of anticoagulants; I25.10 Atherosclerotic heart disease of native coronary artery without angina pectoris; E78.5 Hyperlipidemia, unspecified; T14.8XXD Other injury of unspecified body region, subsequent encounter
CPT/HCPCS: 11042; 99213; G0463

== ENCOUNTER 2022-09-06 08:45 | Outpatient (RCR) | payer MEDICARE, MEDICAID, SELFPAY ==
[2022-08-09 00:41] VITALS: BP 146/50; PULSE 89; TEMP 36.4
[2022-08-09 09:23] VITALS: BP 155/78; PULSE 74; TEMP 36.1
--- NOTE | 2022-08-09 09:25 | PCM.WC.PN ---
History of Present Illness Date of Service: 08/09/22 Chief Complaint: Right lower extremity wound History of Wound: Patient is a 77-year-old female who presents to the wound care center as a referral by her primary care physician for a right lower extremity wound. Patient states that she has history of stage III CKD, TIA, and heart cath. She states following the heart cath in February she developed cellulitis of the right lower extremity. She states that she was treated with antibiotics and the cellulitis resolved. She states that however following this in May she bumped the right lower extremity against her bed frame creating a skin flap/wound. She was advised to not remove the skin and just dressed with triple antibiotic ointment. However she followed up with primary care because she again developed some redness around the wound and was placed on oral antibiotics 3 weeks ago. This has aided in resolving the erythema about the wound however they report the wound has not decreased in size since May. Patient denies being diabetic and denies smoking. She lives alone at home but her daughter is only 1 mile from the house and frequently visits. Subjective Subjective Patient is a 77-year-old female who presents for follow-up of a right lower extremity wound secondary to bumping it against her bed frame. She has been changing the dressings daily with the assistance of her daughter. She denies any constitutional symptoms today. She has no further complaints today. Objective Data Objective Data Vital Signs: Vital Signs Temp Pulse BP 97.6 F L 89 146/50 H 08/09/22 00:41 08/09/22 00:41 08/09/22 00:41 Physical Exam Const alert, oriented x3, no apparent distress and well nourished General Appearance: cooperative HEENT normocephalic Eyes General Eye: normal appearance of both eyes Neck General: normal visual inspection Lymph Lymphatic: no lymphadenopathy noted and no lymphedema noted Resp normal respiratory effort Cardio regular rate and regular rhythm Extremity normal capillary refill, no joint enlargement, no calf tenderness and no pedal edema Extremity Narrative: Right lower extremity demonstrates varicosities. Skin is thin/atrophic.? DP and PT pulses weakly palpable.? Capillary fill time is less than 5 seconds. Normal temperature gradient with absent pedal hair growth Left lower extremity demonstrates varicosities.? Skin is thin/atrophic.? DP and PT pulses weakly palpable.? Capillary fill time is less than 5 seconds.? Normal temperature gradient with absent pedal hair growth Skin no rashes or lesions noted, skin turgor normal and no jaundice Wound Narrative: There is a traumatic ulceration noted to the mid lateral calf secondary to contact with a bed frame.? Ulceration is superficial and circular in nature.? There is dried hemolyzed blood and some fibrotic tissue within the wound bed.? Upon removal base is granular.? There is localized rubor with some edema about the ulceration.? There is no malodor, no purulent drainage, no palpable fluctuance/bogginess, no visible abscess formation, or other localized signs of infection. Neuro moves all extremities Debridement Note Debridement Note Wound debrided: Right lower extremity Laterality: Right Wound Grade/Stage: Rader stage I Type of Debridement: Excisional debridement Anesthesia Used: 5% Lidocaine Gel Depth: Down to and including healthy tissue and in the subcutaneous layer Percentage of wound debrided: 100 Instrument Used: 3mm curette Tissue Removed: Fibrous, devitalized subcutaneous, biofilm, slough Severity: Fat Layer Exposed Amount of bleeding with debridement: Mild Bleeding Controlled with: Compression and gauze Patient tolerated procedure: Patient tolerated procedure well Assessment/Plan Assessment/Plan (1) Non-pressure chronic ulcer of right calf with fat layer exposed: CODE(S): L97.212 - Non-pressure chronic ulcer of right calf with fat layer exposed (2) Traumatic ulcer of right lower leg with fat layer exposed: CODE(S): L97.912 - Non-pressure chronic ulcer of unspecified part of right lower leg with fat layer exposed (3) Delayed healing of traumatic wound: CODE(S): T14.8XXD - Other injury of unspecified body region, subsequent encounter (4) Anemia: CODE(S): D64.9 - Anemia, unspecified (5) HLD (hyperlipidemia): CODE(S): E78.5 - Hyperlipidemia, unspecified QUALIFIERS: Hyperlipidemia type: unspecified Qualified Code(s): E78.5 - Hyperlipidemia, unspecified (6) Essential (primary) hypertension: CODE(S): I10 - Essential (primary) hypertension (7) Iron (Fe) deficiency anemia: CODE(S): D50.9 - Iron deficiency anemia, unspecified PLAN: Plan Patient seen and evaluated I discussed her case today and non-healing traumatic lower extremity ulceration. Ulceration to the right lower extremity was debrided as noted in the clinical panel above.? Ulceration measures 1.1 cm x 1.0 cm x 0.1 cm.? No signs of infection.? Ulceration demonstrates healthy granular base postdebridement.? Abbey moistened with hydrogel applied to the wound site and dressed with a coverlet.? Tubigrip stocking applied to the right lower extremity.? She is to change dressings daily, daughter will assist in changing the dressings.? I discussed with patient continuing to elevate her lower extremities to control any edema about the lower extremity/wound site to aid in healing. She does demonstrate very weak pedal pulses bilaterally.? Vascular studies for arterial and venous were ordered, Awaiting results. Daughter addressed some concerns today with me that her mother is leaving her wound open to the air at times. This was discussed that she needs to keep the dressing on and in place at all times. It was also brought up that the daughter has caught her mother allowing the dog to lick her wound. I discussed that this is a major infection risk and needs to stop immediately. This was discussed in great detail including all major risks associated with this. Patient and daughter voiced understanding of this discussion today. I did discuss signs of infection to observe for today.? I discussed if she experiences any increasing redness about the wound site that moves up the leg, any purulent drainage from the wound site, any malodor, or if she experiences any nausea, vomiting, fever greater than 101 degrees, chills that these are signs of a progressing infection and she needs to report to the ED.? She voices understanding of this today. All questions answered.? She is to return to the wound care center in in 1 weeks for follow-up.? She may return sooner if she has any problems.? She may also call sooner should she have any questions or concerns. Note: [employer] speech recognition screwhead stoner and polisher software was used to create portions of this document. Sound-alike and misspelled words, as well as other screwhead stoner and polisher errors may be contained in the documentation.
--- NOTE | 2022-08-16 08:54 | PCM.WC.PN ---
History of Present Illness Date of Service: 08/16/22 Chief Complaint: Right lower extremity wound History of Wound: Patient is a 77-year-old female who presents to the wound care center as a referral by her primary care physician for a right lower extremity wound. Patient states that she has history of stage III CKD, TIA, and heart cath. She states following the heart cath in February she developed cellulitis of the right lower extremity. She states that she was treated with antibiotics and the cellulitis resolved. She states that however following this in May she bumped the right lower extremity against her bed frame creating a skin flap/wound. She was advised to not remove the skin and just dressed with triple antibiotic ointment. However she followed up with primary care because she again developed some redness around the wound and was placed on oral antibiotics 3 weeks ago. This has aided in resolving the erythema about the wound however they report the wound has not decreased in size since May. Patient denies being diabetic and denies smoking. She lives alone at home but her daughter is only 1 mile from the house and frequently visits. Subjective Subjective Patient is a 77-year-old female who presents for follow-up of a right lower extremity wound secondary to bumping it against her bed frame.? She has been changing the dressings daily with the assistance of her daughter.? Daughter informs me that she is taking better care of the site following our discussion last week. She denies any constitutional symptoms today.? She has no further complaints today. Objective Data Objective Data Vital Signs: Vital Signs Temp Pulse BP 97 F L 74 155/78 H 08/09/22 09:23 08/09/22 09:23 08/09/22 09:23 Weight: 205 kg Physical Exam Const alert, oriented x3, no apparent distress and well nourished General Appearance: cooperative HEENT normocephalic Eyes General Eye: normal appearance of both eyes Neck General: normal visual inspection Lymph Lymphatic: no lymphadenopathy noted and no lymphedema noted Resp normal respiratory effort Cardio regular rate and regular rhythm Extremity normal capillary refill, no joint enlargement, no calf tenderness and no pedal edema Extremity Narrative: Right lower extremity demonstrates varicosities. Skin is thin/atrophic.? DP and PT pulses weakly palpable.? Capillary fill time is less than 5 seconds. Normal temperature gradient with absent pedal hair growth Left lower extremity demonstrates varicosities.? Skin is thin/atrophic.? DP and PT pulses weakly palpable.? Capillary fill time is less than 5 seconds.? Normal temperature gradient with absent pedal hair growth Skin no rashes or lesions noted, skin turgor normal and no jaundice Wound Narrative: There is a traumatic ulceration noted to the mid lateral calf secondary to contact with a bed frame.? Ulceration is superficial and circular in nature. Base is granular.? There is localized rubor with some edema about the ulceration.? There is no malodor, no purulent drainage, no palpable fluctuance/bogginess, no visible abscess formation, or other localized signs of infection. Neuro moves all extremities Debridement Note Debridement Note Wound debrided: Right lateral lower extremity Laterality: Right Wound Grade/Stage: Rader stage I Type of Debridement: Excisional debridement Anesthesia Used: 5% Lidocaine Gel Depth: Down to and including healthy tissue and in the subcutaneous layer Percentage of wound debrided: 100 Instrument Used: 3mm curette Tissue Removed: Fibrous, devitalized subcutaneous, biofilm, slough Severity: Fat Layer Exposed Amount of bleeding with debridement: Mild Bleeding Controlled with: Compression and gauze Patient tolerated procedure: Patient tolerated procedure well Post-Debridement Measurements and Additional Note: Post-Debridement Measurements/Treatment LYN - Nurse 1 - General Ulcer Assessment Start: 08/09/22 09:21 Freq: Status: Active Protocol: JOHAN Activity Type Activity Date Activity User E-sign Co-sign Detail Recorded Client Recorded Date Recorded By Document 08/09/22 09:23 ISAURA [id number] 08/09/22 09:26 ISAURA 08/09/22 09:23 - Today's Visit Information Type of service 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 Any new allergies or adverse reactions No Had a fall/change in ADL's that may No increase risk of falls Signs or symptoms of abuse and/or No neglect since last visit Have you been in the hospital since your No last visit? Has dressing in place as prescribed Yes Has compression in place as prescribed N/A Has offloadiing in place as prescribed N/A Experienced any changes in pain level or No management Left Footwear Regular Shoe Right Footwear Regular Shoe Pain Scale: 0-10 Numeric Is Patient Pain Free? Yes WC - Nurse 1 - General Ulcer Measurement Start: 08/09/22 09:21 Freq: Status: Active Protocol: Activity Type Activity Date Activity User E-sign Co-sign Detail Recorded Client Recorded Date Recorded By Document 08/09/22 09:23 KR [id number] 08/09/22 09:26 KR 08/09/22 09:23 Wound Center Nurse 1 #1 Right Lateral leg -Current Size (cm) - Length 1 -Current Size (cm) - Width 0.7 -Current Size (cm) - Depth 0.1 -Total Square Cm 0.7 -Exudate Amt Small -Exudate Type Serosanguineous -Wound Margin Distinct, Outline Attached -Granulation Amt Medium (34-66%) -Granulation Quality Ball[place] -Necrosis Amt None Present (0 %) -Texture (Melissa-wound Skin Appearance) Assessed, Scarring -Moisture (Melissa-wound Skin Appearance) No Abnormality, Assessed -Color (Melissa-wound Skin Appearance) No Abnormality, Assessed -Temperature (Melissa-wound Skin No Abnormality Appearance) (Pt Warm) -Tenderness on Palpation (Melissa-wound No Skin Appearance) -Ulcer Cleansing Rinsed/ Irrigated with Saline -Foul Odor after Cleansing No -Anesthetic Used 5% Lidocaine Gel WC - Nurse 2 - General Ulcer CM Notes Start: 08/09/22 09:21 Freq: Status: Active Protocol: Activity Type Activity Date Activity User E-sign Co-sign Detail Recorded Client Recorded Date Recorded By Document 08/09/22 12:29 MIKE [id number] 08/09/22 12:31 MIKE 08/09/22 12:29 Wound Center Nurse 2 -Time 09:33 -Correct Patient Yes -Correct Side, Site, Position Yes -Correct Procedure Yes -Procedure Performed Yes -Type of Procedure Debridement -Clinical Debridement Subcutaneous -Tissue Removed Subcutaneous -Post Debridement (cm) - Length 1.1 -Post Debridement (cm) - Width 1.0 -Post Debridement (cm) - Depth 0.1 -Total Square (Post) (cm) 1.10 -Area of Debridement (cm) - Length 1.1 -Area of Debridement (cm) - Width 1.0 -Total Square (Area) (cm) 1.10 -Tunneling No -Undermining/Tunneling No -Circular Undermining No -Wound/Ulcer Outcome Not Healed -Bioengineered Tissue No -Bleeding Controlled with Pressure -Treatment Response Procedure Tolerated Well -Debridement - Subq, 1st 20sq cm Yes Pain Scale: 0-10 Numeric Is Patient Pain Free? Yes - Nurse 3 - General Ulcer D/C NN Start: 08/09/22 09:21 Freq: Status: Active Protocol: Activity Type Activity Date Activity User E-sign Co-sign Detail Recorded Client Recorded Date Recorded By Document 08/09/22 12:03 ISAURA [id number] 08/09/22 12:04 ISAURA 08/09/22 12:03 Wound Care Nurse 3 #1 Right Lateral leg -Ulcer Cleansing Rinsed/ Irrigated with Saline -Primary Dressing Applied Promogran Abbey Matter -Primary Dressing Covered/Secured with Dry Gauze, Secured with Tape -Promogran Abbey Matter 1 Pain Scale: 0-10 Numeric Is Patient Pain Free? Yes WC - Visit Discharge Discharge Condition Stable Ambulatory Status Ambulatory Transportation Private Auto Assessment/Plan Assessment/Plan (1) Non-pressure chronic ulcer of right calf with fat layer exposed: CODE(S): L97.212 - Non-pressure chronic ulcer of right calf with fat layer exposed (2) Traumatic ulcer of right lower leg with fat layer exposed: CODE(S): L97.912 - Non-pressure chronic ulcer of unspecified part of right lower leg with fat layer exposed (3) Delayed healing of traumatic wound: CODE(S): T14.8XXD - Other injury of unspecified body region, subsequent encounter (4) Anemia: CODE(S): D64.9 - Anemia, unspecified (5) HLD (hyperlipidemia): CODE(S): E78.5 - Hyperlipidemia, unspecified QUALIFIERS: Hyperlipidemia type: unspecified Qualified Code(s): E78.5 - Hyperlipidemia, unspecified (6) Essential (primary) hypertension: CODE(S): I10 - Essential (primary) hypertension (7) Iron (Fe) deficiency anemia: CODE(S): D50.9 - Iron deficiency anemia, unspecified PLAN: Plan Patient seen and evaluated I discussed her case today and non-healing traumatic lower extremity ulceration. Ulceration to the right lower extremity was debrided as noted in the clinical panel above.? Ulceration measures 0.9 cm x 0.6 cm x 0.1 cm.? No signs of infection.? Ulceration demonstrates healthy granular base postdebridement.? Abbey moistened with hydrogel applied to the wound site and dressed with a coverlet.? Tubigrip stocking applied to the right lower extremity.? She is to change dressings daily, daughter will assist in changing the dressings.? I discussed with patient continuing to elevate her lower extremities to control any edema about the lower extremity/wound site to aid in healing. She does demonstrate very weak pedal pulses bilaterally.? Vascular studies for arterial and venous were ordered, Awaiting results. At last visit daughter addressed some concerns with me that her mother is leaving her wound open to the air at times. This was discussed that she needs to keep the dressing on and in place at all times. It was also brought up that the daughter has caught her mother allowing the dog to lick her wound. I discussed that this is a major infection risk and needs to stop immediately. This was discussed in great detail including all major risks associated with this. Patient and daughter voiced understanding of this discussion. Today daughter informs me that her mother is no longer leaving it open or allowing her dog to lick the site and has been taking better care of her wound. I did discuss signs of infection to observe for today.? I discussed if she experiences any increasing redness about the wound site that moves up the leg, any purulent drainage from the wound site, any malodor, or if she experiences any nausea, vomiting, fever greater than 101 degrees, chills that these are signs of a progressing infection and she needs to report to the ED.? She voices understanding of this today. All questions answered.? She is to return to the wound care center in in 1 weeks for follow-up.? She may return sooner if she has any problems.? She may also call sooner should she have any questions or concerns. Note: [employer] speech recognition weaving machine operator software was used to create portions of this document. Sound-alike and misspelled words, as well as other weaving machine operator errors may be contained in the documentation.
[2022-08-16 09:04] VITALS: BP 128/87; PULSE 83; RESP 16; TEMP 35.9
--- NOTE | 2022-08-23 09:00 | PN.PCM_ITS ---
History of Present Illness Date of Service: 08/23/22 Chief Complaint: Right lower extremity wound History of Wound: Patient is a 77-year-old female who presents to the wound care center as a referral by her primary care physician for a right lower extremity wound. Patient states that she has history of stage III CKD, TIA, and heart cath. She states following the heart cath in February she developed cellulitis of the right lower extremity. She states that she was treated with antibiotics and the cellulitis resolved. She states that however following this in May she bumped the right lower extremity against her bed frame creating a skin flap/wound. She was advised to not remove the skin and just dressed with triple antibiotic ointment. However she followed up with primary care because she again developed some redness around the wound and was placed on oral antibiotics 3 weeks ago. This has aided in resolving the erythema about the wound however they report the wound has not decreased in size since May. Patient denies being diabetic and denies smoking. She lives alone at home but her daughter is only 1 mile from the house and frequently visits. Subjective Subjective Patient is a 77-year-old female who presents for follow-up of a right lower extremity wound secondary to bumping it against her bed frame.? She has been changing the dressings daily with the assistance of her daughter.? Daughter states she is noticing the wound is getting smaller. She denies any constitutional symptoms today.? She has no further complaints today. Objective Data Objective Data Vital Signs: Vital Signs Temp Pulse Resp BP O2 Del Method 96.6 F L 83 16 128/87 H Room Air 08/16/22 09:04 08/16/22 09:04 08/16/22 09:04 08/16/22 09:04 08/16/22 09:04 Oxygen Delivery Method Room Air Weight: 205 kg Physical Exam Const alert, oriented x3, no apparent distress and well nourished General Appearance: cooperative HEENT normocephalic Eyes General Eye: normal appearance of both eyes Neck General: normal visual inspection Lymph Lymphatic: no lymphadenopathy noted and no lymphedema noted Resp normal respiratory effort Cardio regular rate and regular rhythm Extremity normal capillary refill, no joint enlargement, no calf tenderness and no pedal edema Extremity Narrative: Right lower extremity demonstrates varicosities. Skin is thin/atrophic.? DP and PT pulses weakly palpable.? Capillary fill time is less than 5 seconds. Normal temperature gradient with absent pedal hair growth Left lower extremity demonstrates varicosities.? Skin is thin/atrophic.? DP and PT pulses weakly palpable.? Capillary fill time is less than 5 seconds.? Normal temperature gradient with absent pedal hair growth Skin no rashes or lesions noted, skin turgor normal and no jaundice Wound Narrative: There is a traumatic ulceration noted to the mid lateral calf secondary to contact with a bed frame.? Ulceration is superficial and circular in nature. Base is granular.? There is localized rubor with some edema about the ulceration.? There is no malodor, no purulent drainage, no palpable fluctuance/bogginess, no visible abscess formation, or other localized signs of infection. Neuro moves all extremities Debridement Note Debridement Note Wound debrided: Right lateral leg Laterality: Right Wound Grade/Stage: Rader stage I Type of Debridement: Excisional debridement Anesthesia Used: 5% Lidocaine Gel Depth: Down to and including healthy tissue and in the subcutaneous layer Percentage of wound debrided: 100 Instrument Used: 3mm curette Tissue Removed: Fibrous, devitalized subcutaneous, biofilm, slough Severity: Fat Layer Exposed Amount of bleeding with debridement: Mild Bleeding Controlled with: Compression and gauze Patient tolerated procedure: Patient tolerated procedure well Post-Debridement Measurements and Additional Note: Post-Debridement Measurements/Treatment - Nurse 1 - General Ulcer Assessment Start: 08/09/22 09:21 Freq: Status: Active Protocol: LYN.JESSA Activity Type Activity Date Activity User E-sign Co-sign Detail Recorded Client Recorded Date Recorded By Document 08/09/22 09:23 KR [id number] 08/09/22 09:26 KR Document 08/16/22 09:04 SC [id number] 08/16/22 09:05 AK 08/09/22 08/16/22 09:23 09:04 - Today's Visit Information Type of service Follow-up Visit Follow-up Visit (Physician/PROJECT MANAGEMENT CONSULTANT (Physician/PROJECT MANAGEMENT CONSULTANT ) ) Arrival Mode Ambulatory Wheelchair Transfer Assistance None Accompanied by nancy Patient Identification Verified (Name & Yes Yes ) Patient Requires Transmission-Based No Precautions Height and Weight Weight 205 kg Weight in Pounds 451.9 lbs Weight Measurement Method Standing Scale Vital Signs Temperature (97.8 F-99.1 F) 97 F L 96.6 F L Temperature Source Temporal Temporal Pulse Rate (60-100) 74 83 Pulse Location Monitor Monitor Respiratory Rate (12-18) 16 Respiratory rate source Observation Oxygen Delivery Method Room Air Blood Pressure (90/60-120/80) 155/78 H 128/87 H Blood Pressure Mean (mm Hg) 103 100 Source Monitor Monitor Position Sitting Sitting Blood Pressure Location Right Arm Right Arm History Since Last Visit- (Skip if this is Patient's initial visit) Have you changed medications since your No No last visit? Any new allergies or adverse reactions No No Had a fall/change in ADL's that may No No increase risk of falls Signs or symptoms of abuse and/or No No neglect since last visit Have you been in the hospital since your No No last visit? Has dressing in place as prescribed Yes No Has compression in place as prescribed N/A N/A Has offloadiing in place as prescribed N/A N/A Experienced any changes in pain level or No No management Left Footwear Regular Shoe Regular Shoe Right Footwear Regular Shoe Regular Shoe Pain Scale: 0-10 Numeric Is Patient Pain Free? Yes Yes WC - Nurse 1 - General Ulcer Measurement Start: 08/09/22 09:21 Freq: Status: Active Protocol: Activity Type Activity Date Activity User E-sign Co-sign Detail Recorded Client Recorded Date Recorded By Document 08/09/22 09:23 ISAURA [id number] 08/09/22 09:26 KR Document 08/16/22 09:04 SC [id number] 08/16/22 09:05 AK 08/09/22 08/16/22 09:23 09:04 Wound Center Nurse 1 #1 Right Lateral leg -Combined with other wound No -Current Size (cm) - Length 1 1 -Current Size (cm) - Width 0.7 0.6 -Current Size (cm) - Depth 0.1 0.1 -Total Square Cm 0.7 0.6 -Date of Last Picture (Recall this 08/16/22 field) -Photo Taken Yes -Epithelialization None Present -Tunneling No -Undermining/Tunneling No -Circular Undermining No -Exudate Amt Small Small -Exudate Type Serosanguineous Serosanguineous -Wound Margin Distinct, Flat & Intact Outline Attached -Granulation Amt Medium (34-66%) Large (67-100%) -Granulation Quality [place] Red -Slough/Fibrin No -Necrosis Amt None Present (0 None Present (0 %) %) -Texture (Melissa-wound Skin Appearance) Assessed, Assessed, Scarring Scarring -Moisture (Melissa-wound Skin Appearance) No Abnormality, Assessed Assessed -Color (Melissa-wound Skin Appearance) No Abnormality, Assessed, Assessed Hemosiderin Staining -Temperature (Melissa-wound Skin No Abnormality No Abnormality Appearance) (Pt Warm) (Pt Warm) -Tenderness on Palpation (Melissa-wound No No Skin Appearance) -Ulcer Cleansing Rinsed/ Rinsed/ Irrigated with Irrigated with Saline Saline -Foul Odor after Cleansing No No -Anesthetic Used 5% Lidocaine 5% Lidocaine Gel Gel - Nurse 2 - General Ulcer CM Notes Start: 08/09/22 09:21 Freq: Status: Active Protocol: Activity Type Activity Date Activity User E-sign Co-sign Detail Recorded Client Recorded Date Recorded By Document 08/09/22 12:29 PL [id number] 08/09/22 12:31 PL Document 08/16/22 13:25 PL [id number] 08/16/22 13:26 PL 08/09/22 08/16/22 12:29 13:25 Wound Center Nurse 2 #1 Right Lateral leg -Time 09:33 09:26 -Correct Patient Yes Yes -Correct Side, Site, Position Yes Yes -Correct Procedure Yes Yes -Procedure Performed Yes Yes -Type of Procedure Debridement Debridement -Clinical Debridement Subcutaneous Subcutaneous -Tissue Removed Subcutaneous Subcutaneous -Post Debridement (cm) - Length 1.1 0.9 -Post Debridement (cm) - Width 1.0 0.6 -Post Debridement (cm) - Depth 0.1 0.1 -Total Square (Post) (cm) 1.10 0.54 -Area of Debridement (cm) - Length 1.1 0.9 -Area of Debridement (cm) - Width 1.0 0.6 -Total Square (Area) (cm) 1.10 0.54 -Tunneling No No -Undermining/Tunneling No No -Circular Undermining No No -Wound/Ulcer Outcome Not Healed Not Healed -Ulcer Cleansing Rinsed/ Irrigated with Saline -Foul Odor after Cleansing No -Bioengineered Tissue No No -Bleeding Controlled with Pressure Pressure -Treatment Response Procedure Procedure Tolerated Well Tolerated Well -Debridement - Subq, 1st 20sq cm Yes Yes Pain Scale: 0-10 Numeric Is Patient Pain Free? Yes Yes - Nurse 3 - General Ulcer D/C NN Start: 08/09/22 09:21 Freq: Status: Active Protocol: Activity Type Activity Date Activity User E-sign Co-sign Detail Recorded Client Recorded Date Recorded By Document 08/09/22 12:03 ISAURA [id number] 08/09/22 12:04 KR Document 08/16/22 09:42 AK [id number] 08/16/22 09:43 KELLY 08/09/22 08/16/22 12:03 09:42 Wound Care Nurse 3 #1 Right Lateral leg -Ulcer Cleansing Rinsed/ Rinsed/ Irrigated with Irrigated with Saline Saline -Foul Odor after Cleansing No -Negative Pressure Wound Therapy N/A -Primary Dressing Applied Promogran Promogran Abbey Matter -Primary Dressing Covered/Secured with Dry Gauze, Dry Gauze, Secured with Secured with Tape Tape -Promogran 1 -Promogran Abbey Matter 1 Right -Tubular Bandage Single Layer -Size of Tubigrip Used Size E -Size E ($) 1 Pain Scale: 0-10 Numeric Is Patient Pain Free? Yes Yes WC - Visit Discharge Discharge Condition Stable Stable Ambulatory Status Ambulatory Ambulatory Transportation Private Auto Private Auto Accompanied by daughter Medication Reconcilliation completed & Yes provided to patient/care provider Clinical Summary of Care Provided Yes Assessment/Plan Assessment/Plan (1) Non-pressure chronic ulcer of right calf with fat layer exposed: CODE(S): L97.212 - Non-pressure chronic ulcer of right calf with fat layer exposed (2) Traumatic ulcer of right lower leg with fat layer exposed: CODE(S): L97.912 - Non-pressure chronic ulcer of unspecified part of right lower leg with fat layer exposed (3) Delayed healing of traumatic wound: CODE(S): T14.8XXD - Other injury of unspecified body region, subsequent encounter (4) Anemia: CODE(S): D64.9 - Anemia, unspecified (5) HLD (hyperlipidemia): CODE(S): E78.5 - Hyperlipidemia, unspecified QUALIFIERS: Hyperlipidemia type: unspecified Qualified Code(s): E78.5 - Hyperlipidemia, unspecified (6) Essential (primary) hypertension: CODE(S): I10 - Essential (primary) hypertension (7) Iron (Fe) deficiency anemia: CODE(S): D50.9 - Iron deficiency anemia, unspecified PLAN: Plan Patient seen and evaluated I discussed her case today and non-healing traumatic lower extremity ulceration. Ulceration to the right lower extremity was debrided as noted in the clinical panel above.? Ulceration measures 0.8 cm x 0.6 cm x 0.1 cm.? No signs of infection.? Ulceration demonstrates healthy granular base postdebridement.?Collagen powder and PHMB dressing applied to the wound site.? Tubigrip stocking applied to the right lower extremity.? She is to change dressings daily, daughter will assist in changing the dressings.? I discussed with patient continuing to elevate her lower extremities to control any edema about the lower extremity/wound site to aid in healing. She does demonstrate very weak pedal pulses bilaterally.? Vascular studies for arterial and venous were ordered, Awaiting results. Previous discussion from 08/09/22: Daughter addressed some concerns with me that her mother is leaving her wound open to the air at times. This was discussed that she needs to keep the dressing on and in place at all times. It was also brought up that the daughter has caught her mother allowing the dog to lick her wound. I discussed that this is a major infection risk and needs to stop immediately. This was discussed in great detail including all major risks associated with this. Patient and daughter voiced understanding of this di scussion. Daughter informs me that her mother is no longer leaving it open or allowing her dog to lick the site and has been taking better care of her wound, however mother lives alone so it is possible it could still be occurring. I will continue to monitor for signs of infection. I did discuss signs of infection to observe for today.? I discussed if she experiences any increasing redness about the wound site that moves up the leg, any purulent drainage from the wound site, any malodor, or if she experiences any nausea, vomiting, fever greater than 101 degrees, chills that these are signs of a progressing infection and she needs to report to the ED.? She voices understanding of this today. All questions answered.? She is to return to the wound care center in in 1 weeks for follow-up.? She may return sooner if she has any problems.? She may also call sooner should she have any questions or concerns. Note: [employer] speech recognition riveting machine operator tape control software was used to create portions of this document. Sound-alike and misspelled words, as well as other riveting machine operator tape control errors may be contained in the documentation.
[2022-08-23 09:08] VITALS: BP 143/81; PULSE 78; TEMP 36.1
[2022-08-30 09:14] VITALS: BP 124/88; PULSE 79; RESP 18; TEMP 36.1
--- NOTE | 2022-08-30 09:22 | PCM.WC.PN ---
History of Present Illness Date of Service: 08/30/22 Chief Complaint: Right lower extremity wound History of Wound: Patient is a 77-year-old female who presents to the wound care center as a referral by her primary care physician for a right lower extremity wound. Patient states that she has history of stage III CKD, TIA, and heart cath. She states following the heart cath in February she developed cellulitis of the right lower extremity. She states that she was treated with antibiotics and the cellulitis resolved. She states that however following this in May she bumped the right lower extremity against her bed frame creating a skin flap/wound. She was advised to not remove the skin and just dressed with triple antibiotic ointment. However she followed up with primary care because she again developed some redness around the wound and was placed on oral antibiotics 3 weeks ago. This has aided in resolving the erythema about the wound however they report the wound has not decreased in size since May. Patient denies being diabetic and denies smoking. She lives alone at home but her daughter is only 1 mile from the house and frequently visits. Subjective Subjective Patient is a 77-year-old female who presents for follow-up of a right lower extremity wound secondary to bumping it against her bed frame.? She has been changing the dressings daily with the assistance of her daughter.? Daughter states she is noticing the wound is getting smaller, but does note legs are continuing to swell again. She denies any constitutional symptoms today.? She has no further complaints today. Objective Data Objective Data Vital Signs: Vital Signs Temp Pulse Resp BP O2 Del Method 97 F L 79 18 124/88 H Room Air 08/30/22 09:14 08/30/22 09:14 08/30/22 09:14 08/30/22 09:14 08/30/22 09:14 Oxygen Delivery Method Room Air Weight: 205 kg Physical Exam Const alert, oriented x3, no apparent distress and well nourished General Appearance: cooperative HEENT normocephalic Eyes General Eye: normal appearance of both eyes Neck General: normal visual inspection Lymph Lymphatic: no lymphadenopathy noted and no lymphedema noted Resp normal respiratory effort Cardio regular rate and regular rhythm Extremity normal capillary refill, no joint enlargement, no calf tenderness and no pedal edema Extremity Narrative: Right lower extremity demonstrates varicosities. Skin is thin/atrophic.? DP and PT pulses weakly palpable.? Capillary fill time is less than 5 seconds. Normal temperature gradient with absent pedal hair growth Left lower extremity demonstrates varicosities.? Skin is thin/atrophic.? DP and PT pulses weakly palpable.? Capillary fill time is less than 5 seconds.? Normal temperature gradient with absent pedal hair growth Skin no rashes or lesions noted, skin turgor normal and no jaundice Wound Narrative: There is a traumatic ulceration noted to the mid lateral calf secondary to contact with a bed frame.? Ulceration is superficial and circular in nature. Base is granular.? There is localized rubor with some edema about the ulceration.? There is no malodor, no purulent drainage, no palpable fluctuance/bogginess, no visible abscess formation, or other localized signs of infection. Neuro moves all extremities Debridement Note Debridement Note Wound debrided: Right lower extremity Laterality: Right Wound Grade/Stage: Rader stage I Type of Debridement: Excisional debridement Anesthesia Used: 5% Lidocaine Gel Depth: Down to and including healthy tissue and in the subcutaneous layer Percentage of wound debrided: 100 Instrument Used: 3mm curette Tissue Removed: Fibrous, devitalized subcutaneous, biofilm, slough Severity: Fat Layer Exposed Amount of bleeding with debridement: Mild Bleeding Controlled with: Compression and gauze Patient tolerated procedure: Patient tolerated procedure well Post-Debridement Measurements and Additional Note: Post-Debridement Measurements/Treatment - Nurse 1 - General Ulcer Assessment Start: 08/09/22 09:21 Freq: Status: Active Protocol: LYN.LOWEXT Activity Type Activity Date Activity User E-sign Co-sign Detail Recorded Client Recorded Date Recorded By Document 08/09/22 09:23 KR [id number] 08/09/22 09:26 KR Document 08/16/22 09:04 AK [id number] 08/16/22 09:05 AK Document 08/23/22 09:08 AK [id number] 08/23/22 09:09 AK Document 08/30/22 09:14 MT [id number] 08/30/22 09:16 MT 08/09/22 08/16/22 08/23/22 09:23 09:04 09:08 - Today's Visit Information Type of service Follow-up Visit Follow-up Visit Follow-up Visit (Physician/INTERACTIVE DIGITAL MEDIA SPECIALIST (Physician/INTERACTIVE DIGITAL MEDIA SPECIALIST (Physician/INTERACTIVE DIGITAL MEDIA SPECIALIST ) ) ) Arrival Mode Ambulatory Wheelchair Ambulatory Transfer Assistance None Accompanied by nancy Patient Identification Verified (Name & Yes Yes Yes ) Patient Requires Transmission-Based No No Precautions Height and Weight Weight 205 kg Weight in Pounds 451.9 lbs Weight Measurement Method Standing Scale Vital Signs Temperature (97.8 F-99.1 F) 97 F L 96.6 F L 96.9 F L Temperature Source Temporal Temporal Temporal Pulse Rate (60-100) 74 83 78 Pulse Location Monitor Monitor Monitor Respiratory Rate (12-18) 16 Respiratory rate source Observation Oxygen Delivery Method Room Air Blood Pressure (90/60-120/80) 155/78 H 128/87 H 143/81 H Blood Pressure Mean (mm Hg) 103 100 101 Source Monitor Monitor Monitor Position Sitting Sitting Blood Pressure Location Right Arm Right Arm History Since Last Visit- (Skip if this is Patient's initial visit) Have you changed medications since your No No No last visit? Any new allergies or adverse reactions No No No Had a fall/change in ADL's that may No No No increase risk of falls Signs or symptoms of abuse and/or No No No neglect since last visit Have you been in the hospital since your No No No last visit? Has dressing in place as prescribed Yes No Yes Has compression in place as prescribed N/A N/A N/A Has offloadiing in place as prescribed N/A N/A N/A Experienced any changes in pain level or No No No management Left Footwear Regular Shoe Regular Shoe Regular Shoe Right Footwear Regular Shoe Regular Shoe Regular Shoe Pain Scale: 0-10 Numeric Is Patient Pain Free? Yes Yes Yes 08/30/22 09:14 WC - Today's Visit Information Type of service Follow-up Visit (Physician/INTERACTIVE DIGITAL MEDIA SPECIALIST ) Arrival Mode Ambulatory Transfer Assistance Accompanied by daughter Patient Identification Verified (Name & Yes ) Patient Requires Transmission-Based Precautions Height and Weight Weight Weight in Pounds Weight Measurement Method Vital Signs Temperature (97.8 F-99.1 F) 97 F L Temperature Source Temporal Pulse Rate (60-100) 79 Pulse Location Monitor Respiratory Rate (12-18) 18 Respiratory rate source Observation Oxygen Delivery Method Room Air Blood Pressure (90/60-120/80) 124/88 H Blood Pressure Mean (mm Hg) 100 Source Monitor Position Sitting Blood Pressure Location Left Arm History Since Last Visit- (Skip if this is Patient's initial visit) Have you changed medications since your last visit? Any new allergies or adverse reactions Had a fall/change in ADL's that may increase risk of falls Signs or symptoms of abuse and/or neglect since last visit Have you been in the hospital since your last visit? Has dressing in place as prescribed Yes Has compression in place as prescribed Yes Has offloadiing in place as prescribed Yes Experienced any changes in pain level or Yes management Left Footwear Regular Shoe Right Footwear Regular Shoe Pain Scale: 0-10 Numeric Is Patient Pain Free? Yes WC - Nurse 1 - General Ulcer Measurement Start: 08/09/22 09:21 Freq: Status: Active Protocol: Activity Type Activity Date Activity User E-sign Co-sign Detail Recorded Client Recorded Date Recorded By Document 08/09/22 09:23 KR [id number] 08/09/22 09:26 KR Document 08/16/22 09:04 AK [id number] 08/16/22 09:05 AK Document 08/23/22 09:08 AK [id number] 08/23/22 09:09 AK Document 08/30/22 09:14 NC [id number] 08/30/22 09:16 NC 08/09/22 08/16/22 08/23/22 09:23 09:04 09:08 Wound Center Nurse 1 #1 Right Lateral leg -Combined with other wound No No -Current Size (cm) - Length 1 1 1 -Current Size (cm) - Width 0.7 0.6 0.5 -Current Size (cm) - Depth 0.1 0.1 0.1 -Total Square Cm 0.7 0.6 0.5 -Date of Last Picture (Recall this 08/16/22 field) -Photo Taken Yes Yes -Epithelialization None Present -Tunneling No No -Undermining/Tunneling No No -Circular Undermining No No -Change in Wound Grade/Stage No -Exudate Amt Small Small Small -Exudate Type Serosanguineous Serosanguineous Serosanguineous -Wound Margin Distinct, Flat & Intact Distinct, Outline Outline Attached Attached -Granulation Amt Medium (34-66%) Large (67-100%) Large (67-100%) -Granulation Quality [place] -Slough/Fibrin No Yes -Necrosis Amt None Present (0 None Present (0 None Present (0 %) %) %) -Structure Exposed N/A -Texture (Melissa-wound Skin Appearance) Assessed, Assessed, No Abnormality, Scarring Scarring Assessed -Moisture (Melissa-wound Skin Appearance) No Abnormality, Assessed No Abnormality, Assessed Assessed -Color (Melissa-wound Skin Appearance) No Abnormality, Assessed, No Abnormality, Assessed Hemosiderin Assessed Staining -Temperature (Melissa-wound Skin No Abnormality No Abnormality No Abnormality Appearance) (Pt Warm) (Pt Warm) (Pt Warm) -Tenderness on Palpation (Melissa-wound No No No Skin Appearance) -Ulcer Cleansing Rinsed/ Rinsed/ Rinsed/ Irrigated with Irrigated with Irrigated with Saline Saline Saline -Foul Odor after Cleansing No No No -Anesthetic Used 5% Lidocaine 5% Lidocaine 5% Lidocaine Gel Gel Gel Lower Limb Edema Present 08/30/22 09:14 Wound Center Nurse 1 #1 Right Lateral leg -Combined with other wound -Current Size (cm) - Length 0.1 -Current Size (cm) - Width 0.1 -Current Size (cm) - Depth 0.1 -Total Square Cm 0.01 -Date of Last Picture (Recall this 08/30/22 field) -Photo Taken Yes -Epithelialization Large 67-100% -Tunneling -Undermining/Tunneling -Circular Undermining -Change in Wound Grade/Stage -Exudate Amt None Present -Exudate Type -Wound Margin Flat & Intact -Granulation Amt None Present (0 %) -Granulation Quality -Slough/Fibrin No -Necrosis Amt -Structure Exposed -Texture (Melissa-wound Skin Appearance) Assessed -Moisture (Melissa-wound Skin Appearance) -Color (Melissa-wound Skin Appearance) No Abnormality, Assessed -Temperature (Melissa-wound Skin No Abnormality Appearance) (Pt Warm) -Tenderness on Palpation (Melissa-wound No Skin Appearance) -Ulcer Cleansing Soap and Water -Foul Odor after Cleansing No -Anesthetic Used 5% Lidocaine Gel Lower Limb Edema Present NA WC - Nurse 2 - General Ulcer CM Notes Start: 08/09/22 09:21 Freq: Status: Active Protocol: Activity Type Activity Date Activity User E-sign Co-sign Detail Recorded Client Recorded Date Recorded By Document 08/09/22 12:29 PL [id number] 08/09/22 12:31 PL Document 08/16/22 13:25 PL [id number] 08/16/22 13:26 PL Document 08/23/22 11:51 PL [id number] 08/23/22 11:52 PL 08/09/22 08/16/22 08/23/22 12:29 13:25 11:51 Wound Center Nurse 2 #1 Right Lateral leg -Time 09:33 09:26 09:03 -Correct Patient Yes Yes Yes -Correct Side, Site, Position Yes Yes Yes -Correct Procedure Yes Yes Yes -Procedure Performed Yes Yes Yes -Type of Procedure Debridement Debridement Debridement -Clinical Debridement Subcutaneous Subcutaneous Subcutaneous -Tissue Removed Subcutaneous Subcutaneous Subcutaneous -Post Debridement (cm) - Length 1.1 0.9 0.8 -Post Debridement (cm) - Width 1.0 0.6 0.6 -Post Debridement (cm) - Depth 0.1 0.1 0.1 -Total Square (Post) (cm) 1.10 0.54 0.48 -Area of Debridement (cm) - Length 1.1 0.9 0.8 -Area of Debridement (cm) - Width 1.0 0.6 0.6 -Total Square (Area) (cm) 1.10 0.54 0.48 -Tunneling No No No -Undermining/Tunneling No No No -Circular Undermining No No No -Wound/Ulcer Outcome Not Healed Not Healed Not Healed -Ulcer Cleansing Rinsed/ Rinsed/ Irrigated with Irrigated with Saline Saline -Foul Odor after Cleansing No No -Bioengineered Tissue No No No -Bleeding Controlled with Pressure Pressure Pressure -Treatment Response Procedure Procedure Procedure Tolerated Well Tolerated Well Tolerated Well -Debridement - Subq, 1st 20sq cm Yes Yes Yes Pain Scale: 0-10 Numeric Is Patient Pain Free? Yes Yes Yes WC - Nurse 3 - General Ulcer D/C NN Start: 08/09/22 09:21 Freq: Status: Active Protocol: Activity Type Activity Date Activity User E-sign Co-sign Detail Recorded Client Recorded Date Recorded By Document 08/09/22 12:03 KR [id number] 08/09/22 12:04 KR Document 08/16/22 09:42 AK [id number] 08/16/22 09:43 AK Document 08/23/22 09:39 AK [id number] 08/23/22 09:39 AK 08/09/22 08/16/22 08/23/22 12:03 09:42 09:39 Wound Care Nurse 3 #1 Right Lateral leg -Ulcer Cleansing Rinsed/ Rinsed/ Rinsed/ Irrigated with Irrigated with Irrigated with Saline Saline Saline -Foul Odor after Cleansing No No -Negative Pressure Wound Therapy N/A N/A -Primary Dressing Applied Promogran Promogran [place] -Other Dressing collagen powder -Primary Dressing Covered/Secured with Dry Gauze, Dry Gauze, Dry Gauze, Secured with Secured with Secured with Tape Tape Tape -Promogran 1 -Promogran [place] Matter 1 Right -Tubular Bandage Single Layer -Size of Tubigrip Used Size E -Size E ($) 1 Pain Scale: 0-10 Numeric Is Patient Pain Free? Yes Yes Yes WC - Visit Discharge Discharge Condition Stable Stable Ambulatory Status Ambulatory Ambulatory Transportation Private Auto Private Auto Accompanied by daughter Medication Reconcilliation completed & Yes provided to patient/care provider Clinical Summary of Care Provided Yes Assessment/Plan Assessment/Plan (1) Non-pressure chronic ulcer of right calf with fat layer exposed: CODE(S): L97.212 - Non-pressure chronic ulcer of right calf with fat layer exposed (2) Traumatic ulcer of right lower leg with fat layer exposed: CODE(S): L97.912 - Non-pressure chronic ulcer of unspecified part of right lower leg with fat layer exposed (3) Delayed healing of traumatic wound: CODE(S): T14.8XXD - Other injury of unspecified body region, subsequent encounter (4) Anemia: CODE(S): D64.9 - Anemia, unspecified (5) HLD (hyperlipidemia): CODE(S): E78.5 - Hyperlipidemia, unspecified QUALIFIERS: Hyperlipidemia type: unspecified Qualified Code(s): E78.5 - Hyperlipidemia, unspecified (6) Essential (primary) hypertension: CODE(S): I10 - Essential (primary) hypertension (7) Iron (Fe) deficiency anemia: CODE(S): D50.9 - Iron deficiency anemia, unspecified PLAN: Plan Patient seen and evaluated I discussed her case today and non-healing traumatic lower extremity ulceration. Ulceration to the right lower extremity was debrided as noted in the clinical panel above.? Ulceration measures 0.5 cm x 0.6 cm x 0.1 cm.? No signs of infection.? Ulceration demonstrates healthy granular base postdebridement.?Collagen powder and PHMB dressing applied to the wound site.? Tubigrip stocking applied to the right lower extremity.? She is to change dressings daily, daughter will assist in changing the dressings.? I discussed with patient continuing to elevate her lower extremities to control any edema about the lower extremity/wound site to aid in healing. I discussed she must remain compliant in wearing the Tubigrip compression as her legs have swollen today. She does demonstrate very weak pedal pulses bilaterally.? Vascular studies for arterial and venous were ordered, Awaiting results. Previous discussion from 08/09/22: Daughter addressed some concerns with me that her mother is leaving her wound open to the air at times. This was discussed that she needs to keep the dressing on and in place at all times. It was also brought up that the daughter has caught her mother allowing the dog to lick her wound. I discussed that this is a major infection risk and needs to stop immediately. This was discussed in great detail including all major risks associated with this. Patient and daughter voiced understanding of this discussion. Daughter informs me that her mother is no longer leaving it open or allowing her dog to lick the site and has been taking better care of her wound, however mother lives alone so it is possible it could still be occurring. I will continue to monitor for signs of infection. I did discuss signs of infection to observe for today.? I discussed if she experiences any increasing redness about the wound site that moves up the leg, any purulent drainage from the wound site, any malodor, or if she experiences any nausea, vomiting, fever greater than 101 degrees, chills that these are signs of a progressing infection and she needs to report to the ED.? She voices understanding of this today. All questions answered.? She is to return to the wound care center in in 1 weeks for follow-up.? She may return sooner if she has any problems.? She may also call sooner should she have any questions or concerns. Note: [employer] speech recognition robotic welder software was used to create portions of this document. Sound-alike and misspelled words, as well as other robotic welder errors may be contained in the documentation.
[2022-09-06 08:53] VITALS: BP 142/80; PULSE 74; TEMP 35.7
--- NOTE | 2022-09-06 08:55 | PN.PCM_ITS ---
History of Present Illness Date of Service: 09/06/22 Chief Complaint: Right lower extremity wound History of Wound: Patient is a 77-year-old female who presents to the wound care center as a referral by her primary care physician for a right lower extremity wound. Patient states that she has history of stage III CKD, TIA, and heart cath. She states following the heart cath in February she developed cellulitis of the right lower extremity. She states that she was treated with antibiotics and the cellulitis resolved. She states that however following this in May she bumped the right lower extremity against her bed frame creating a skin flap/wound. She was advised to not remove the skin and just dressed with triple antibiotic ointment. However she followed up with primary care because she again developed some redness around the wound and was placed on oral antibiotics 3 weeks ago. This has aided in resolving the erythema about the wound however they report the wound has not decreased in size since May. Patient denies being diabetic and denies smoking. She lives alone at home but her daughter is only 1 mile from the house and frequently visits. Subjective Subjective Patient is a 77-year-old female who presents for follow-up of a right lower extremity wound secondary to bumping it against her bed frame.?She admits to leaving her wound uncovered for the last week. She has been changing the dressings daily with the assistance of her daughter.?She denies any constitutional symptoms today.?She has no further complaints today. Objective Data Objective Data Vital Signs: Vital Signs Temp Pulse Resp BP O2 Del Method 96.2 F L 74 18 142/80 H Room Air 09/06/22 08:53 09/06/22 08:53 08/30/22 09:14 09/06/22 08:53 08/30/22 09:14 Oxygen Delivery Method Room Air Weight: 205 kg Physical Exam Const alert, oriented x3, no apparent distress and well nourished General Appearance: cooperative HEENT normocephalic Eyes General Eye: normal appearance of both eyes Neck General: normal visual inspection Lymph Lymphatic: no lymphadenopathy noted and no lymphedema noted Resp normal respiratory effort Cardio regular rate and regular rhythm Extremity normal capillary refill, no joint enlargement, no calf tenderness and no pedal edema Extremity Narrative: Right lower extremity demonstrates varicosities. Skin is thin/atrophic.? DP and PT pulses weakly palpable.? Capillary fill time is less than 5 seconds. Normal temperature gradient with absent pedal hair growth Left lower extremity demonstrates varicosities.? Skin is thin/atrophic.? DP and PT pulses weakly palpable.? Capillary fill time is less than 5 seconds.? Normal temperature gradient with absent pedal hair growth Skin no rashes or lesions noted, skin turgor normal and no jaundice Wound Narrative: There is a traumatic ulceration noted to the mid lateral calf secondary to contact with a bed frame.? Ulceration is superficial and circular in nature. Base is granular.? There is localized rubor with some edema about the ulceration.? There is no malodor, no purulent drainage, no palpable fluctuance/bogginess, no visible abscess formation, or other localized signs of infection. Neuro moves all extremities Debridement Note Debridement Note Wound debrided: Right lower extremity Laterality: Right Wound Grade/Stage: Rader stage I Type of Debridement: Excisional debridement Anesthesia Used: 5% Lidocaine Gel Depth: Down to and including healthy tissue and in the subcutaneous layer Percentage of wound debrided: 100 Instrument Used: 3mm curette Tissue Removed: Fibrous, devitalized subcutaneous, biofilm, slough Severity: Fat Layer Exposed Amount of bleeding with debridement: Mild Bleeding Controlled with: Compression and gauze Patient tolerated procedure: Patient tolerated procedure well Post-Debridement Measurements and Additional Note: Post-Debridement Measurements/Treatment - Nurse 1 - General Ulcer Assessment Start: 08/09/22 09:21 Freq: Status: Active Protocol: JOHAN Activity Type Activity Date Activity User E-sign Co-sign Detail Recorded Client Recorded Date Recorded By Document 08/09/22 09:23 KR [id number] 08/09/22 09:26 KR Document 08/16/22 09:04 AK [id number] 08/16/22 09:05 AK Document 08/23/22 09:08 AK [id number] 08/23/22 09:09 AK Document 08/30/22 09:14 MT [id number] 08/30/22 09:16 MT Document 09/06/22 08:53 AK [id number] 09/06/22 08:54 AK 08/09/22 08/16/22 08/23/22 09:23 09:04 09:08 - Today's Visit Information Type of service Follow-up Visit Follow-up Visit Follow-up Visit (Physician/TWISTER FRAME TENDER (Physician/TWISTER FRAME TENDER (Physician/TWISTER FRAME TENDER ) ) ) Arrival Mode Ambulatory Wheelchair Ambulatory Transfer Assistance None Accompanied by nancy Patient Identification Verified (Name & Yes Yes Yes ) Patient Requires Transmission-Based No No Precautions Safety Precautions Height and Weight Weight 205 kg Weight in Pounds 451.9 lbs Weight Measurement Method Standing Scale Vital Signs Temperature (97.8 F-99.1 F) 97 F L 96.6 F L 96.9 F L Temperature Source Temporal Temporal Temporal Pulse Rate (60-100) 74 83 78 Pulse Location Monitor Monitor Monitor Respiratory Rate (12-18) 16 Respiratory rate source Observation Oxygen Delivery Method Room Air Blood Pressure (90/60-120/80) 155/78 H 128/87 H 143/81 H Blood Pressure Mean (mm Hg) 103 100 101 Source Monitor Monitor Monitor Position Sitting Sitting Blood Pressure Location Right Arm Right Arm History Since Last Visit- (Skip if this is Patient's initial visit) Have you changed medications since your No No No last visit? Any new allergies or adverse reactions No No No Had a fall/change in ADL's that may No No No increase risk of falls Signs or symptoms of abuse and/or No No No neglect since last visit Have you been in the hospital since your No No No last visit? Has dressing in place as prescribed Yes No Yes Has compression in place as prescribed N/A N/A N/A Has offloadiing in place as prescribed N/A N/A N/A Experienced any changes in pain level or No No No management Left Footwear Regular Shoe Regular Shoe Regular Shoe Right Footwear Regular Shoe Regular Shoe Regular Shoe Pain Scale: 0-10 Numeric Is Patient Pain Free? Yes Yes Yes 08/30/22 09/06/22 09:14 08:53 WC - Today's Visit Information Type of service Follow-up Visit Follow-up Visit (Physician/TWISTER FRAME TENDER (Physician/TWISTER FRAME TENDER ) ) Arrival Mode Ambulatory Ambulatory Transfer Assistance Accompanied by daughter Patient Identification Verified (Name & Yes Yes ) Patient Requires Transmission-Based No Precautions Safety Precautions NA Height and Weight Weight Weight in Pounds Weight Measurement Method Vital Signs Temperature (97.8 F-99.1 F) 97 F L 96.2 F L Temperature Source Temporal Temporal Pulse Rate (60-100) 79 74 Pulse Location Monitor Monitor Respiratory Rate (12-18) 18 Respiratory rate source Observation Oxygen Delivery Method Room Air Blood Pressure (90/60-120/80) 124/88 H 142/80 H Blood Pressure Mean (mm Hg) 100 100 Source Monitor Monitor Position Sitting Blood Pressure Location Left Arm History Since Last Visit- (Skip if this is Patient's initial visit) Have you changed medications since your No last visit? Any new allergies or adverse reactions No Had a fall/change in ADL's that may No increase risk of falls Signs or symptoms of abuse and/or No neglect since last visit Have you been in the hospital since your No last visit? Has dressing in place as prescribed Yes No Has compression in place as prescribed Yes N/A Has offloadiing in place as prescribed Yes N/A Experienced any changes in pain level or Yes No management Left Footwear Regular Shoe Regular Shoe Right Footwear Regular Shoe Regular Shoe Pain Scale: 0-10 Numeric Is Patient Pain Free? Yes Yes WC - Nurse 1 - General Ulcer Measurement Start: 08/09/22 09:21 Freq: Status: Active Protocol: Activity Type Activity Date Activity User E-sign Co-sign Detail Recorded Client Recorded Date Recorded By Document 08/09/22 09:23 KR [id number] 08/09/22 09:26 KR Document 08/16/22 09:04 AK [id number] 08/16/22 09:05 AK Document 08/23/22 09:08 AK [id number] 08/23/22 09:09 AK Document 08/30/22 09:14 WV [id number] 08/30/22 09:16 MT Document 09/06/22 08:53 AK [id number] 09/06/22 08:54 CT 08/09/22 08/16/22 08/23/22 09:23 09:04 09:08 Wound Center Nurse 1 #1 Right Lateral leg -Combined with other wound No No -Current Size (cm) - Length 1 1 1 -Current Size (cm) - Width 0.7 0.6 0.5 -Current Size (cm) - Depth 0.1 0.1 0.1 -Total Square Cm 0.7 0.6 0.5 -Date of Last Picture (Recall this 08/16/22 field) -Photo Taken Yes Yes -Epithelialization None Present -Tunneling No No -Undermining/Tunneling No No -Circular Undermining No No -Classification - Thickness -Change in Wound Grade/Stage No -Exudate Amt Small Small Small -Exudate Type Serosanguineous Serosanguineous Serosanguineous -Wound Margin Distinct, Flat & Intact Distinct, Outline Outline Attached Attached -Granulation Amt Medium (34-66%) Large (67-100%) Large (67-100%) -Granulation Quality [facility] -Slough/Fibrin No Yes -Necrosis Amt None Present (0 None Present (0 None Present (0 %) %) %) -Structure Exposed N/A -Texture (Melissa-wound Skin Appearance) Assessed, Assessed, No Abnormality, Scarring Scarring Assessed -Moisture (Melissa-wound Skin Appearance) No Abnormality, Assessed No Abnormality, Assessed Assessed -Color (Melissa-wound Skin Appearance) No Abnormality, Assessed, No Abnormality, Assessed Hemosiderin Assessed Staining -Temperature (Melissa-wound Skin No Abnormality No Abnormality No Abnormality Appearance) (Pt Warm) (Pt Warm) (Pt Warm) -Tenderness on Palpation (Melissa-wound No No No Skin Appearance) -Ulcer Cleansing Rinsed/ Rinsed/ Rinsed/ Irrigated with Irrigated with Irrigated with Saline Saline Saline -Foul Odor after Cleansing No No No -Anesthetic Used 5% Lidocaine 5% Lidocaine 5% Lidocaine Gel Gel Gel Lower Limb Edema Present 08/30/22 09/06/22 09:14 08:53 Wound Center Nurse 1 #1 Right Lateral leg -Combined with other wound No -Current Size (cm) - Length 0.1 0.5 -Current Size (cm) - Width 0.1 0.4 -Current Size (cm) - Depth 0.1 0.1 -Total Square Cm 0.01 0.20 -Date of Last Picture (Recall this 08/30/22 field) -Photo Taken Yes No -Epithelialization Large 67-100% -Tunneling No -Undermining/Tunneling No -Circular Undermining No -Classification - Thickness Partial Thickness -Change in Wound Grade/Stage No -Exudate Amt None Present None Present -Exudate Type -Wound Margin Flat & Intact Distinct, Outline Attached -Granulation Amt None Present (0 None Present (0 %) %) -Granulation Quality N/A -Slough/Fibrin No No -Necrosis Amt None Present (0 %) -Structure Exposed N/A -Texture (Melissa-wound Skin Appearance) Assessed No Abnormality, Assessed -Moisture (Melissa-wound Skin Appearance) No Abnormality, Assessed -Color (Melissa-wound Skin Appearance) No Abnormality, No Abnormality, Assessed Assessed -Temperature (Melissa-wound Skin No Abnormality No Abnormality Appearance) (Pt Warm) (Pt Warm) -Tenderness on Palpation (Melissa-wound No No Skin Appearance) -Ulcer Cleansing Soap and Water Rinsed/ Irrigated with Saline -Foul Odor after Cleansing No No -Anesthetic Used 5% Lidocaine 5% Lidocaine Gel Gel Lower Limb Edema Present NA WC - Nurse 2 - General Ulcer CM Notes Start: 08/09/22 09:21 Freq: Status: Active Protocol: Activity Type Activity Date Activity User E-sign Co-sign Detail Recorded Client Recorded Date Recorded By Document 08/09/22 12:29 PL [id number] 08/09/22 12:31 PL Document 08/16/22 13:25 PL [id number] 08/16/22 13:26 PL Document 08/23/22 11:51 PL [id number] 08/23/22 11:52 PL Document 08/30/22 11:54 PL [id number] 08/30/22 11:55 PL 08/09/22 08/16/22 08/23/22 12:29 13:25 11:51 Wound Center Nurse 2 #1 Right Lateral leg -Time 09:33 09:26 09:03 -Correct Patient Yes Yes Yes -Correct Side, Site, Position Yes Yes Yes -Correct Procedure Yes Yes Yes -Procedure Performed Yes Yes Yes -Type of Procedure Debridement Debridement Debridement -Clinical Debridement Subcutaneous Subcutaneous Subcutaneous -Tissue Removed Subcutaneous Subcutaneous Subcutaneous -Post Debridement (cm) - Length 1.1 0.9 0.8 -Post Debridement (cm) - Width 1.0 0.6 0.6 -Post Debridement (cm) - Depth 0.1 0.1 0.1 -Total Square (Post) (cm) 1.10 0.54 0.48 -Area of Debridement (cm) - Length 1.1 0.9 0.8 -Area of Debridement (cm) - Width 1.0 0.6 0.6 -Total Square (Area) (cm) 1.10 0.54 0.48 -Tunneling No No No -Undermining/Tunneling No No No -Circular Undermining No No No -Wound/Ulcer Outcome Not Healed Not Healed Not Healed -Ulcer Cleansing Rinsed/ Rinsed/ Irrigated with Irrigated with Saline Saline -Foul Odor after Cleansing No No -Bioengineered Tissue No No No -Bleeding Controlled with Pressure Pressure Pressure -Treatment Response Procedure Procedure Procedure Tolerated Well Tolerated Well Tolerated Well -Debridement - Subq, 1st 20sq cm Yes Yes Yes Pain Scale: 0-10 Numeric Is Patient Pain Free? Yes Yes Yes 08/30/22 11:54 Wound Center Nurse 2 #1 Right Lateral leg -Time 09:33 -Correct Patient Yes -Correct Side, Site, Position Yes -Correct Procedure Yes -Procedure Performed Yes -Type of Procedure Debridement -Clinical Debridement Subcutaneous -Tissue Removed Subcutaneous -Post Debridement (cm) - Length 0.6 -Post Debridement (cm) - Width 0.5 -Post Debridement (cm) - Depth 0.1 -Total Square (Post) (cm) 0.30 -Area of Debridement (cm) - Length 0.6 -Area of Debridement (cm) - Width 0.5 -Total Square (Area) (cm) 0.30 -Tunneling No -Undermining/Tunneling No -Circular Undermining No -Wound/Ulcer Outcome Not Healed -Ulcer Cleansing Rinsed/ Irrigated with Saline -Foul Odor after Cleansing No -Bioengineered Tissue No -Bleeding Controlled with Pressure -Treatment Response Procedure Tolerated Well -Debridement - Subq, 1st 20sq cm Yes Pain Scale: 0-10 Numeric Is Patient Pain Free? Yes - Nurse 3 - General Ulcer D/C NN Start: 08/09/22 09:21 Freq: Status: Active Protocol: Activity Type Activity Date Activity User E-sign Co-sign Detail Recorded Client Recorded Date Recorded By Document 08/09/22 12:03 KR [id number] 08/09/22 12:04 KR Document 08/16/22 09:42 AK [id number] 08/16/22 09:43 AK Document 08/23/22 09:39 AK [id number] 08/23/22 09:39 AK Document 08/30/22 09:54 MT [id number] 08/30/22 09:56 MT 08/09/22 08/16/22 08/23/22 12:03 09:42 09:39 Wound Care Nurse 3 #1 Right Lateral leg -Ulcer Cleansing Rinsed/ Rinsed/ Rinsed/ Irrigated with Irrigated with Irrigated with Saline Saline Saline -Foul Odor after Cleansing No No -Negative Pressure Wound Therapy N/A N/A -Primary Dressing Applied Promogran Promogran Abbey Matter -Other Dressing collagen powder -Primary Dressing Covered/Secured with Dry Gauze, Dry Gauze, Dry Gauze, Secured with Secured with Secured with Tape Tape Tape -Promogran 1 -Promogran Abbey Matter 1 Left -Tubular Bandage -Size of Tubigrip Used -Size E ($) Right -Tubular Bandage Single Layer -Size of Tubigrip Used Size E -Size E ($) 1 Pain Scale: 0-10 Numeric Is Patient Pain Free? Yes Yes Yes WC - Visit Discharge Discharge Condition Stable Stable Ambulatory Status Ambulatory Ambulatory Transportation Private Auto Private Auto Accompanied by daughter Medication Reconcilliation completed & Yes provided to patient/care provider Clinical Summary of Care Provided Yes 08/30/22 09:54 Wound Care Nurse 3 #1 Right Lateral leg -Ulcer Cleansing -Foul Odor after Cleansing No -Negative Pressure Wound Therapy N/A -Primary Dressing Applied -Other Dressing collagen and PMG -Primary Dressing Covered/Secured with Dry Gauze & Roll Gauze, Secured with Tape -Promogran -Promogran Abbey Matter Left -Tubular Bandage Single Layer -Size of Tubigrip Used Size E -Size E ($) 1 Right -Tubular Bandage Single Layer -Size of Tubigrip Used Size E -Size E ($) 1 Pain Scale: 0-10 Numeric Is Patient Pain Free? Yes WC - Visit Discharge Discharge Condition Stable Ambulatory Status Ambulatory Transportation Private Auto Accompanied by Medication Reconcilliation completed & No provided to patient/care provider Clinical Summary of Care Provided Yes Assessment/Plan Assessment/Plan (1) Non-pressure chronic ulcer of right calf with fat layer exposed: CODE(S): L97.212 - Non-pressure chronic ulcer of right calf with fat layer exposed (2) Traumatic ulcer of right lower leg with fat layer exposed: CODE(S): L97.912 - Non-pressure chronic ulcer of unspecified part of right lower leg with fat layer exposed (3) Delayed healing of traumatic wound: CODE(S): T14.8XXD - Other injury of unspecified body region, subsequent encounter (4) Anemia: CODE(S): D64.9 - Anemia, unspecified (5) HLD (hyperlipidemia): CODE(S): E78.5 - Hyperlipidemia, unspecified QUALIFIERS: Hyperlipidemia type: unspecified Qualified Code(s): E78.5 - Hyperlipidemia, unspecified (6) Essential (primary) hypertension: CODE(S): I10 - Essential (primary) hypertension (7) Iron (Fe) deficiency anemia: CODE(S): D50.9 - Iron deficiency anemia, unspecified PLAN: Plan Patient seen and evaluated I discussed her case today and non-healing traumatic lower extremity ulceration. Ulceration to the right lower extremity was debrided as noted in the clinical panel above.? Ulceration measures 0.5 cm x 0.4 cm x 0.1 cm.? No signs of infection.? Ulceration demonstrates healthy granular base postdebridement.?Hydrogel applied to the wound site.? Discussed continued use of her Tubigrip stocking however patient states that she does not like the tight feeling of compression and refuses to wear them.? She is to change dressings daily, daughter will assist in changing the dressings.? She was reminded to keep her dressing in place and to not leave the wound uncovered. I discussed with patient continuing to elevate her lower extremities to control any edema about the lower extremity/wound site to aid in healing. I discussed she must remain compliant in wearing the Tubigrip compression as her legs have swollen today. She does demonstrate very weak pedal pulses bilaterally.? Vascular studies for arterial and venous were ordered, Awaiting results. I feel that the patient has failed to go for her vascular studies she was again reminded of this today. Previous discussion from 08/09/22: Daughter addressed some concerns with me that her mother is leaving her wound open to the air at times. This was discussed that she needs to keep the dressing on and in place at all times. It was also brought up that the daughter has caught her mother allowing the dog to lick her wound. I discussed that this is a major infection risk and needs to stop immediately. This was discussed in great detail including all major risks associated with this. Patient and daughter voiced understanding of this discussion. Daughter informs me that her mother is no longer leaving it open or allowing her dog to lick the site and has been taking better care of her wound, however mother lives alone so it is possible it could still be occurring. I will continue to monitor for signs of infection. I did discuss signs of infection to observe for today.? I discussed if she experiences any increasing redness about the wound site that moves up the leg, any purulent drainage from the wound site, any malodor, or if she experiences any nausea, vomiting, fever greater than 101 degrees, chills that these are signs of a progressing infection and she needs to report to the ED.? She voices understanding of this today. All questions answered.? She is to return to the wound care center in in 2 weeks for follow-up.? She may return sooner if she has any problems.? She may also call sooner should she have any questions or concerns. Note: [employer] speech recognition barrel polisher software was used to create portions of this document. Sound-alike and misspelled words, as well as other barrel polisher errors may be contained in the documentation.
== END 2022-09-08 23:59 | disposition home or self-care (01) ==
LOC: WC 08:45
PROVIDERS: Visit Provider Student in an Organized Health Care Education/Training Program
DX: L97.212 Non-pressure chronic ulcer of right calf with fat layer exposed (principal); N18.30 Chronic kidney disease, stage 3 unspecified; D50.9 Iron deficiency anemia, unspecified; Z60.2 Problems related to living alone; E78.5 Hyperlipidemia, unspecified; T14.8XXD Other injury of unspecified body region, subsequent encounter; Z86.73 Personal history of transient ischemic attack (TIA), and cerebral infarction without residual deficits; I12.9 Hypertensive chronic kidney disease with stage 1 through stage 4 chronic kidney disease, or unspecified chronic kidney disease
CPT/HCPCS: 11042

== ENCOUNTER 2022-09-25 11:00 | Day surgery (SDC) | payer MEDICARE, MEDICAID, SELFPAY ==
[2022-09-25] VITALS (7 sets, daily range): BP systolic 119–145; BP diastolic 70–76; PULSE 60–66; RESP 16–18; TEMP 36.3–36.7; O2SAT 96–98; BMI 39.9
--- NOTE | 2022-09-25 | IMM_PTH ---
PATIENT: HA GARAY LOC: EN U#:[id number] AGE/SX: 77/F ROOM: RE09/25/[address]: Dr. Edvin Keyes DO : 1945 BED: DIS: 09/25/2022 SPEC #: [id number] RECD: 09/26/22 13:25 STATUS: DEBIJacque HIRA #: [id number] KEVIN: 09/25/22 00:[address]: Edvin Keyes DEPT: IMMUNOHISTOCHEMISTRY RECD BY: Heaven Covarrubias ENTERED: 09/26/22 13:26 SP TYPE: IMMUNO OTHR DR: Bal Benz Tissues: A - Stomach, NOS Procedures: H Pylori (initial) PHYSICIAN & INSTITUTION [place] [id number] SPECIMEN INFORMATION: Tissue Source: A ? Gastric antrum Clinical Info: Gastric ulcer, anemia, hiatal hernia, GERD Specimen Number: [id number] CPT code: 29735 METHODOLOGY: Deparaffinized sections of prefer/formalin-fixed tissue or PAP/DQ stained slides are incubated with monoclonal/polyclonal antibodies/oligonucleotide probes. Localization is made via biotin free immunoperoxidase method. Appropriate controls are performed and reacted as expected. Results on target cell population are indicated in the following table: RESULTS: ANTIBODY / CLONE RESULT Block A H Pylori (polyclonal) negative These tests were developed and their performance characteristics determined by [facility]. They may not have been cleared or approved by the U.S. Food and Drug Administration. The FDA has determined that such clearance or approval is not necessary. The above immunohistochemical/dualISH markers are ordered and reviewed by the Pathologist. INTERPRETATION: A. Gastric antrum, biopsy: Negative for Helicobacter pylori organisms. AM:lambert 09/27/2022
[2022-09-25] MEDS: Lactated Ringers 1,000 ML 15 ML IV (11:30)
--- NOTE | 2022-09-25 11:58 | HP.PCM_ITS ---
History and Physical Date of Admission: 09/25/22 77 F who presents to the office today for f/u gastric ulcer.? The plan at her 05/11/2022 appointment was to schedule EGD and colonoscopy to follow-up GI bleed and iron deficiency anemia.? The EGD and colonoscopy were not done, its not clear exactly why but it sounds like the patient did not want to have colonoscopy done.? She is willing to do repeat EGD to evaluate the bleeding gastric ulcer that was treated during 03/10/2022 EGD when she was hospitalized for anemia.? Her hemoglobin and iron levels have improved.? She denies any GI complaints at this time.? No abdominal pain, nausea, vomiting.? She has to chew her food carefully, very long history of difficulty swallowing, this has not worsened.? She has a large hiatal hernia.? She remains on PPI therapy.? No diarrhea, constipation, melena, hematochezia. Hx collagenous colitis, on budesonide. She has dementia. She is on eliquis for a fib. No longer on aspirin. On 03/11/2022 hemoglobin was 6.9, hemoglobin was 8.2 at discharge on 03/12/2022.? While hospitalized iron level was 10. On 03/19/2022 hemoglobin was 9.5 05/11/22 hgb 11.7, iron 44, ferr 64 03/10/22 EGD Impression: ? - Normal upper third of esophagus and middle ? third of esophagus. ? - Mild Schatzki ring. ? - Large hiatal hernia. ? - Oozing gastric ulcer with a visible vessel. ? Injected. Treated with a heater probe. Clips ? were placed. ? - Normal first portion of the duodenum. ? - No specimens collected. ROS Const Constitutional: Positive for frequent falls and headache(s); No fatigue ENT ENT: Positive for headache(s) and difficulty swallowing Cardio Cardiology: Positive for leg pain with exertion Gastro GI: Positive for difficulty swallowing; No abdominal pain, belching, bloating, change in bowel habits, change in stool character, coffee ground emesis, constipation, cramping, diarrhea, heartburn, feeling full early, excessive flatus, incontinent of stools, Vomiting blo od/hematemesis, Blood in stool, loose stools, Black,tarry stools, nausea/dyspepsia, pain with swallowing, vomiting or other Musc Musculoskeletal: Positive for joint pain, back pain, numbness, tingling, Arthritis, leg pain at night and leg pain with exertion; No sciatica or restless legs Skin Skin: No yellowing of the eye or itchy eyes Neuro Neurology: Positive for frequent falls, headache(s), numbness and tingling; No restless legs Psych Psychiatric: No anxiety and No depression Endo Endocrine: No fatigue Aller/Imm Allergy/Immunologic: No itchy eyes Moises/Lymp Hematologic/Lymphatic: Positive for easy bleeding and easy bruising Exam Const General: cooperative and comfortable Nutritional Appearance: obese Orientation: alert and awake Eyes Conjunctivae: conjunctivae normal Sclera: sclerae normal Resp Effort & Inspection: normal respiratory effort Quality Reporting Tobacco Screening ([facility] 138) Smoking Status: Never smoker Assessment and Plan Assessment and Plan (1) Gastric ulcer: ?Status:?Acute ?Plan: 77-year-old female with iron deficiency anemia due to a bleeding gastric ulcer.? We will schedule repeat EGD to reevaluate the gastric ulcer.? I believe she is still on ferrous sulfate daily.? She continues twice daily PPI therapy.? She has a large hiatal hernia.? Follow-up 2 weeks after EGD. (2) Anemia: ?Status:?Acute ?Plan: As above (3) Hiatal hernia: ?Status:?Acute ?Plan: As above (4) GERD (gastroesophageal reflux disease): ?Status:?Acute ?Plan: As above I have examined the patient and the H&P has been reviewed. There are no clinical changes since date of exam.
--- NOTE | 2022-09-25 12:00 | EGD_PTH ---
PATIENT: HA GARAY LOC: EN U#:[id number] AGE/SX: 77/F ROOM: RE09/25/[address]: Dr. Edvin Keyes DO : 1945 BED: DIS: 09/25/2022 SPEC #: [id number] RECD: 09/25/22 16:55 STATUS: EVELYN HIRA #: [id number] KEVIN: 09/25/22 12:[address]: Edvin Keyes DEPT: SURGICAL PATHOLOGY RECD BY: Jacqueline Moeller ENTERED: 09/26/22 09:44 SP TYPE: EGD BIOPSY OT DR: Bal Benz Tissues: A - Gastric mucous membrane B - Esophagus, NOS Procedures: Surgery Specimen Level IV HEADER OPERATION: EGD ([facility] [place]) PRE-OP DIAGNOSIS: Gastric ulcer, anemia, hiatal hernia, GERD TISSUE SUBMITTED: A ? Gastric antrum biopsy for H. pylori and path, B ? Distal esophagus biopsy MICROSCOPIC DIAGNOSIS A. Gastric antrum, biopsy: Mild chronic gastritis. See comment. B. Distal esophagus, biopsy: Gastroesophageal junctional mucosa with mild chronic inflammation. No evidence of goblet cell metaplasia. See comment. AM:lambert 09/27/2022 COMMENT A. The results of immunohistochemistry for Helicobacter pylori will be reported separately ([id number]). B. Alcian blue/PAS stain with matched control supports the above diagnosis. MICROSCOPIC DESCRIPTION Slides are reviewed. GROSS DESCRIPTION A - Received in fixative is one container labeled with the patient's name and designated antrum biopsy. The specimen consists of two irregular fragments of light bermudez soft tissue that in aggregate measure 0.7 x 0.5 x 0.1 cm. The specimen is totally submitted in one cassette. B - Received in fixative is one container labeled with the patient's name and designated distal esophagus. The specimen consists of two irregular fragments of light bermudez soft tissue that in aggregate measure 0.6 x 0.6 x 0.1 cm. The specimen is totally submitted in one cassette. / AM:lambert 09/26/2022 TC:3 CPT: 54279 x2, 59400
--- NOTE | 2022-09-25 12:29 | OP.EGD_ITS ---
Patient Name: Tanya Sanchez Procedure Date: 09/25/2022 11:50 AM Date of : 1945 Age: 77 Procedure: Upper GI endoscopy Indications: Dysphagia, Melena, Peptic ulcer Providers: Edvin Keyes DO Referring MD: Edvin Keyes DO Medicines: Monitored Anesthesia Care Patient Profile: This is a 77 year old female. Refer to note in patient chart for documentation of history and physical. Patient has symptoms of chronic epigastric abdominal pain and chronic dysphagia. Complications: No immediate complications. Procedure: Pre-Anesthesia Assessment: - Prior to the procedure, a History and Physical was performed, and patient medications and allergies were reviewed. The risks and benefits of the procedure and the sedation options and risks were discussed with the patient. All questions were answered and informed consent was obtained. Patient identification and proposed procedure were verified by the physician. Mental Status Examination: alert and oriented. Airway Examination: normal oropharyngeal airway and neck mobility. Respiratory Examination: clear to auscultation. CV Examination: normal. Prophylactic Antibiotics: The patient does not require prophylactic antibiotics. Prior Anticoagulants: The patient has taken no previous anticoagulant or antiplatelet agents. ASA Grade Assessment: II - A patient with mild systemic disease. After reviewing the risks and benefits, the patient was deemed in satisfactory condition to undergo the procedure. The anesthesia plan was to use moderate sedation / analgesia (conscious sedation). Immediately prior to administration of medications, the patient was re-assessed for adequacy to receive sedatives. The heart rate, respiratory rate, oxygen saturations, blood pressure, adequacy of pulmonary ventilation, and response to care were monitored throughout the procedure. The physical status of the patient was re-assessed after the procedure. After obtaining informed consent, the endoscope was passed under direct vision. Throughout the procedure, the patient's blood pressure, pulse, and oxygen saturations were monitored continuously. The Endoscope was introduced through the mouth, and advanced to the second part of duodenum. The upper GI endoscopy was accomplished without difficulty. The patient tolerated the procedure well. Scope In: 12:17:12 PM Scope Out: 12:21:10 PM Total Procedure Duration Time 0 hours 3 minutes 58 seconds Findings: A moderate Schatzki ring was found in the lower third of the esophagus. A guidewire was placed and the scope was withdrawn. Dilation was performed with a Savary dilator with no resistance at 42 Fr. The dilation site was examined and showed mild improvement in luminal narrowing. The Z-line was irregular and was found 39 cm from the incisors. Biopsies were taken with a cold forceps for histology. Verification of patient identification for the specimen was done. Estimated blood loss was minimal. A medium-sized hiatal hernia was present. Patchy mildly erythematous mucosa without bleeding was found in the gastric fundus. Biopsies were taken with a cold forceps for histology. Verification of patient identification for the specimen was done. Estimated blood loss was minimal. The second portion of the duodenum was normal. Impression: - Moderate Schatzki ring. Dilated. - Z-line irregular, 39 cm from the incisors. Biopsied. - Medium-sized hiatal hernia. - Erythematous mucosa in the gastric fundus. Biopsied. - Normal second portion of the duodenum. Recommendation: - Discharge patient to home. - Resume previous diet. - Continue present medications. - Await pathology results. Procedure Code(s): --- Professional --- 29814, Esophagogastroduodenoscopy, flexible, transoral; with insertion of guide wire followed by passage of dilator(s) through esophagus over guide wire 16043, 59,51, Esophagogastroduodenoscopy, flexible, transoral; with biopsy, single or multiple CPT copyright 2017 [employer]. All rights reserved. The codes documented in this report are preliminary and upon manufacturer representative review may be revised to meet current compliance requirements. Edvin Keyes DO 09/25/2022 12:28:17 PM This report has been signed electronically. Number of Addenda: 0 Note Initiated On: 09/25/2022 11:50 AM
--- NOTE | 2022-09-25 12:29 | OP.CCLET_ITS ---
09/25/2022 Bal Benz Re : Upper GI endoscopy procedure for Tanya Sanchez Dear Demar This procedure was performed on Sunday, September 25, 2022. My impressions and recommendations are as follows: Impressions : - Moderate Schatzki ring. Dilated. - Z-line irregular, 39 cm from the incisors. Biopsied. - Medium-sized hiatal hernia. - Erythematous mucosa in the gastric fundus. Biopsied. - Normal second portion of the duodenum. Recommendations : - Discharge patient to home. - Resume previous diet. - Continue present medications. - Await pathology results. My findings are described in the full procedure note, which is enclosed. If I can be of further assistance, please feel free to contact me at . Sincerely, Edvin Keyes, 09/25/2022 12:28:17 PM This report has been signed electronically.
== END 2022-09-25 13:13 | disposition home or self-care (01) ==
LOC: EN 11:03 → AC 11:05
PROVIDERS: Referring Provider Internal Medicine Gastroenterology; Visit Provider Internal Medicine Gastroenterology
PROC: 0DJ08ZZ Inspection of Upper Intestinal Tract, Via Natural or Artificial Opening Endoscopic (ICD-10-PCS; CPT 43235; principal; 2022-09-25 11:55)
DX: K29.50 Unspecified chronic gastritis without bleeding (principal); K44.9 Diaphragmatic hernia without obstruction or gangrene; D50.9 Iron deficiency anemia, unspecified; R13.10 Dysphagia, unspecified; K25.4 Chronic or unspecified gastric ulcer with hemorrhage; R29.6 Repeated falls; R51.9 Headache, unspecified
CPT/HCPCS: 43248; 43239; 88305; 88342; J7120; J2405

== ENCOUNTER 2022-10-04 08:45 | Outpatient (RCR) | payer MEDICARE, MEDICAID, SELFPAY ==
[2022-09-09 00:33] VITALS: BP 142/80; PULSE 74; RESP 18; TEMP 35.7
[2022-09-20 09:04] VITALS: BP 132/83; PULSE 78; TEMP 36.3
--- NOTE | 2022-09-20 09:19 | PN.PCM_ITS ---
History of Present Illness Date of Service: 09/20/22 Chief Complaint: Right lower extremity wound History of Wound: Patient is a 77-year-old female who presents to the wound care center as a referral by her primary care physician for a right lower extremity wound. Patient states that she has history of stage III CKD, TIA, and heart cath. She states following the heart cath in February she developed cellulitis of the right lower extremity. She states that she was treated with antibiotics and the cellulitis resolved. She states that however following this in May she bumped the right lower extremity against her bed frame creating a skin flap/wound. She was advised to not remove the skin and just dressed with triple antibiotic ointment. However she followed up with primary care because she again developed some redness around the wound and was placed on oral antibiotics 3 weeks ago. This has aided in resolving the erythema about the wound however they report the wound has not decreased in size since May. Patient denies being diabetic and denies smoking. She lives alone at home but her daughter is only 1 mile from the house and frequently visits. Subjective Subjective Patient is a 77-year-old female who presents for follow-up of a right lower extremity wound secondary to bumping it against her bed frame.?She has been changing the dressings daily using Hydrogel with the assistance of her daughter.?She denies any constitutional symptoms today.?She has no further complaints today. Objective Data Objective Data Vital Signs: Vital Signs Temp Pulse Resp BP 97.4 F L 78 18 132/83 H 09/20/22 09:04 09/20/22 09:04 09/09/22 00:33 09/20/22 09:04 Weight: 205 kg Physical Exam Const alert, oriented x3, no apparent distress and well nourished General Appearance: cooperative HEENT normocephalic Eyes General Eye: normal appearance of both eyes Neck General: normal visual inspection Lymph Lymphatic: no lymphadenopathy noted and no lymphedema noted Resp normal respiratory effort Cardio regular rate and regular rhythm Extremity normal capillary refill, no joint enlargement, no calf tenderness and no pedal edema Extremity Narrative: Right lower extremity demonstrates varicosities. Skin is thin/atrophic.? DP and PT pulses weakly palpable.? Capillary fill time is less than 5 seconds. Normal temperature gradient with absent pedal hair growth Left lower extremity demonstrates varicosities.? Skin is thin/atrophic.? DP and PT pulses weakly palpable.? Capillary fill time is less than 5 seconds.? Normal temperature gradient with absent pedal hair growth Skin no rashes or lesions noted, skin turgor normal and no jaundice Wound Narrative: There is a traumatic ulceration noted to the mid lateral calf secondary to contact with a bed frame.? Ulceration is superficial and circular in nature. Base is granular.? There is localized rubor with some edema about the ulceration.? There is no malodor, no purulent drainage, no palpable fluctuance/bogginess, no visible abscess formation, or other localized signs of infection. Neuro moves all extremities Debridement Note Debridement Note No debridement was completed: No debridement was completed today Post-Debridement Measurements and Additional Note: Post-Debridement Measurements/Treatment WC - Nurse 1 - General Ulcer Assessment Start: 09/20/22 09:04 Freq: Status: Active Protocol: JOHAN Activity Type Activity Date Activity User E-sign Co-sign Detail Recorded Client Recorded Date Recorded By Document 09/20/22 09:04 ISAURA [id number] 09/20/22 09:05 ISAURA 09/20/22 09:04 WC - Today's Visit Information Type of service Follow-up Visit (Physician/[facility] ) Arrival Mode Ambulatory Patient Identification Verified (Name & Yes ) Vital Signs Temperature (97.8 F-99.1 F) 97.4 F L Temperature Source Temporal Pulse Rate (60-100) 78 Pulse Location Monitor Blood Pressure (90/60-120/80) 132/83 H Blood Pressure Mean (mm Hg) 99 Source Monitor Position Semi-Fowlers Blood Pressure Location Right Arm History Since Last Visit- (Skip if this is Patient's initial visit) Have you changed medications since your No last visit? Any new allergies or adverse reactions No Had a fall/change in ADL's that may No increase risk of falls Have you been in the hospital since your No last visit? Has dressing in place as prescribed Yes Has compression in place as prescribed N/A Has offloadiing in place as prescribed N/A Experienced any changes in pain level or No management Left Footwear Regular Shoe Right Footwear Regular Shoe Pain Scale: 0-10 Numeric Is Patient Pain Free? Yes - Nurse 1 - General Ulcer Measurement Start: 09/20/22 09:04 Freq: Status: Active Protocol: Activity Type Activity Date Activity User E-sign Co-sign Detail Recorded Client Recorded Date Recorded By Document 09/20/22 09:04 ISAURA [id number] 09/20/22 09:05 ISAURA 09/20/22 09:04 Wound Center Nurse 1 #1 Right Lateral leg -Current Size (cm) - Length 0.5 -Current Size (cm) - Width 0.4 -Current Size (cm) - Depth 0.1 -Total Square Cm 0.20 -Exudate Amt None Present -Granulation Amt Small (1-33%) -Granulation Quality [place] -Necrosis Amt None Present (0 %) -Texture (Melissa-wound Skin Appearance) Assessed, Scarring -Moisture (Melissa-wound Skin Appearance) Assessed,Dry/ Scaly -Color (Melissa-wound Skin Appearance) No Abnormality, Assessed -Temperature (Melissa-wound Skin No Abnormality Appearance) (Pt Warm) -Tenderness on Palpation (Melissa-wound No Skin Appearance) -Ulcer Cleansing Rinsed/ Irrigated with Saline -Foul Odor after Cleansing No -Anesthetic Used 5% Lidocaine Gel Assessment/Plan Assessment/Plan (1) Non-pressure chronic ulcer of right calf with fat layer exposed: CODE(S): L97.212 - Non-pressure chronic ulcer of right calf with fat layer exposed (2) Traumatic ulcer of right lower leg with fat layer exposed: CODE(S): L97.912 - Non-pressure chronic ulcer of unspecified part of right lower leg with fat layer exposed (3) Delayed healing of traumatic wound: CODE(S): T14.8XXD - Other injury of unspecified body region, subsequent encounter (4) HLD (hyperlipidemia): CODE(S): E78.5 - Hyperlipidemia, unspecified QUALIFIERS: Hyperlipidemia type: unspecified Qualified Code(s): E78.5 - Hyperlipidemia, unspecified (5) Essential (primary) hypertension: CODE(S): I10 - Essential (primary) hypertension (6) Iron (Fe) deficiency anemia: CODE(S): D50.9 - Iron deficiency anemia, unspecified PLAN: Plan Patient seen and evaluated I discussed her case today and non-healing traumatic lower extremity ulceration. Ulceration to the right lower extremity was not debrided as noted in the clinical panel above.? Ulceration measures 0.5 cm x 0.4 cm x 0.1 cm.? No signs of infection.? Ulceration demonstrates healthy appearance with superficial scabbing.?Hydrogel applied to the wound site.? Discussed continued use of her Tubigrip stocking however patient states that she does not like the tight feeling of compression and refuses to wear them.?She is to change dressings daily, daughter will assist in changing the dressings.? She was reminded to keep her dressing in place and to not leave the wound uncovered. I discussed with patient continuing to elevate her lower extremities to control any edema about the lower extremity/wound site to aid in healing.? I discussed she must remain compliant in wearing the Tubigrip compression as her legs have swollen today. She does demonstrate very weak pedal pulses bilaterally.? Vascular studies for arterial and venous were ordered, Awaiting results.? I feel that the patient has failed to go for her vascular studies she was again reminded of this today. Previous discussion from 08/09/22: Daughter addressed some concerns with me that her mother is leaving her wound open to the air at times.? This was discussed that she needs to keep the dressing on and in place at all times.? It was also brought up that the daughter has caught her mother allowing the dog to lick her wound.? I discussed that this is a major infection risk and needs to stop immediately.? This was discussed in great detail including all major risks associated with this.? Patient and daughter voiced understanding of this discussion. Daughter informs me that her mother is no longer leaving it open or allowing her dog to lick the site and has been taking better care of her wound, however mother lives alone so it is possible it could still be occurring.? I will continue to monitor for signs of infection. I did discuss signs of infection to observe for today.? I discussed if she exp eriences any increasing redness about the wound site that moves up the leg, any purulent drainage from the wound site, any malodor, or if she experiences any nausea, vomiting, fever greater than 101 degrees, chills that these are signs of a progressing infection and she needs to report to the ED.? She voices understanding of this today. All questions answered.? She is to return to the wound care center in in 2 weeks for follow-up.? She may return sooner if she has any problems.? She may also call sooner should she have any questions or concerns. Note: [id number] Digital speech recognition dispatcher street department software was used to create portions of this document. Sound-alike and misspelled words, as well as other dispatcher street department errors may be contained in the documentation.
--- NOTE | 2022-10-04 08:46 | PN.PCM_ITS ---
History of Present Illness Date of Service: 10/04/22 Chief Complaint: Right lower extremity wound History of Wound: Patient is a 77-year-old female who presents to the wound care center as a referral by her primary care physician for a right lower extremity wound. Patient states that she has history of stage III CKD, TIA, and heart cath. She states following the heart cath in February she developed cellulitis of the right lower extremity. She states that she was treated with antibiotics and the cellulitis resolved. She states that however following this in May she bumped the right lower extremity against her bed frame creating a skin flap/wound. She was advised to not remove the skin and just dressed with triple antibiotic ointment. However she followed up with primary care because she again developed some redness around the wound and was placed on oral antibiotics 3 weeks ago. This has aided in resolving the erythema about the wound however they report the wound has not decreased in size since May. Patient denies being diabetic and denies smoking. She lives alone at home but her daughter is only 1 mile from the house and frequently visits. Subjective Subjective Patient is a 77-year-old female who presents for follow-up of a right lower extremity wound secondary to bumping it against her bed frame.?She has been changing the dressings daily using Hydrogel with the assistance of her daughter.?Daughter states the wound is improving. She denies any constitutional symptoms today.?She has no further complaints today. Objective Data Objective Data Vital Signs: Vital Signs Temp Pulse Resp BP 97.4 F L 78 18 132/83 H 09/20/22 09:04 09/20/22 09:04 09/09/22 00:33 09/20/22 09:04 Weight: 205 kg Physical Exam Const alert, oriented x3, no apparent distress and well nourished General Appearance: cooperative HEENT normocephalic Eyes General Eye: normal appearance of both eyes Neck General: normal visual inspection Lymph Lymphatic: no lymphadenopathy noted and no lymphedema noted Resp normal respiratory effort Cardio regular rate and regular rhythm Extremity normal capillary refill, no joint enlargement, no calf tenderness and no pedal edema Extremity Narrative: Right lower extremity demonstrates varicosities. Skin is thin/atrophic.? DP and PT pulses weakly palpable.? Capillary fill time is less than 5 seconds. Normal temperature gradient with absent pedal hair growth Left lower extremity demonstrates varicosities.? Skin is thin/atrophic.? DP and PT pulses weakly palpable.? Capillary fill time is less than 5 seconds.? Normal temperature gradient with absent pedal hair growth Skin no rashes or lesions noted, skin turgor normal and no jaundice Wound Narrative: There is a traumatic ulceration noted to the mid lateral calf secondary to contact with a bed frame.? Ulceration is superficial and circular in nature. Base is granular.? There is some edema about the ulceration.? There is no malodor, no purulent drainage, no palpable fluctuance/bogginess, no visible abscess formation, or other localized signs of infection. Neuro moves all extremities Debridement Note Debridement Note No debridement was completed: No debridement was completed today Post-Debridement Measurements and Additional Note: Post-Debridement Measurements/Treatment - Nurse 1 - General Ulcer Assessment Start: 09/20/22 09:04 Freq: Status: Active Protocol: JOHAN Activity Type Activity Date Activity User E-sign Co-sign Detail Recorded Client Recorded Date Recorded By Document 09/20/22 09:04 ISAURA [id number] 09/20/22 09:05 ISAURA 09/20/22 09:04 WC - Today's Visit Information Type of service Follow-up Visit (Physician/COOK APPRENTICE ) Arrival Mode Ambulatory Patient Identification Verified (Name & Yes ) Vital Signs Temperature (97.8 F-99.1 F) 97.4 F L Temperature Source Temporal Pulse Rate (60-100) 78 Pulse Location Monitor Blood Pressure (90/60-120/80) 132/83 H Blood Pressure Mean (mm Hg) 99 Source Monitor Position Semi-Fowlers Blood Pressure Location Right Arm History Since Last Visit- (Skip if this is Patient's initial visit) Have you changed medications since your No last visit? Any new allergies or adverse reactions No Had a fall/change in ADL's that may No increase risk of falls Have you been in the hospital since your No last visit? Has dressing in place as prescribed Yes Has compression in place as prescribed N/A Has offloadiing in place as prescribed N/A Experienced any changes in pain level or No management Left Footwear Regular Shoe Right Footwear Regular Shoe Pain Scale: 0-10 Numeric Is Patient Pain Free? Yes - Nurse 1 - General Ulcer Measurement Start: 09/20/22 09:04 Freq: Status: Active Protocol: Activity Type Activity Date Activity User E-sign Co-sign Detail Recorded Client Recorded Date Recorded By Document 09/20/22 09:04 [id number] 09/20/22 09:05 KR 09/20/22 09:04 Wound Center Nurse 1 #1 Right Lateral leg -Current Size (cm) - Length 0.5 -Current Size (cm) - Width 0.4 -Current Size (cm) - Depth 0.1 -Total Square Cm 0.20 -Exudate Amt None Present -Granulation Amt Small (1-33%) -Granulation Quality [place] -Necrosis Amt None Present (0 %) -Texture (Melissa-wound Skin Appearance) Assessed, Scarring -Moisture (Melissa-wound Skin Appearance) Assessed,Dry/ Scaly -Color (Melissa-wound Skin Appearance) No Abnormality, Assessed -Temperature (Melissa-wound Skin No Abnormality Appearance) (Pt Warm) -Tenderness on Palpation (Melissa-wound No Skin Appearance) -Ulcer Cleansing Rinsed/ Irrigated with Saline -Foul Odor after Cleansing No -Anesthetic Used 5% Lidocaine Gel WC - Nurse 2 - General Ulcer CM Notes Start: 09/20/22 09:04 Freq: Status: Active Protocol: Activity Type Activity Date Activity User E-sign Co-sign Detail Recorded Client Recorded Date Recorded By Document 09/20/22 12:01 MIKE [id number] 09/20/22 12:02 PL 09/20/22 12:01 Wound Center Nurse 2 -Procedure Performed No -Post Debridement (cm) - Length 0.5 -Post Debridement (cm) - Width 0.4 -Post Debridement (cm) - Depth 0.1 -Total Square (Post) (cm) 0.20 -Wound/Ulcer Outcome Not Healed Pain Scale: 0-10 Numeric Is Patient Pain Free? Yes Assessment/Plan Assessment/Plan (1) Non-pressure chronic ulcer of right calf with fat layer exposed: CODE(S): L97.212 - Non-pressure chronic ulcer of right calf with fat layer exposed (2) Traumatic ulcer of right lower leg with fat layer exposed: CODE(S): L97.912 - Non-pressure chronic ulcer of unspecified part of right lower leg with fat layer exposed (3) Delayed healing of traumatic wound: CODE(S): T14.8XXD - Other injury of unspecified body region, subsequent encounter (4) HLD (hyperlipidemia): CODE(S): E78.5 - Hyperlipidemia, unspecified QUALIFIERS: Hyperlipidemia type: unspecified Qualified Code(s): E78.5 - Hyperlipidemia, unspecified (5) Essential (primary) hypertension: CODE(S): I10 - Essential (primary) hypertension (6) Iron (Fe) deficiency anemia: CODE(S): D50.9 - Iron deficiency anemia, unspecified PLAN: Plan Patient seen and evaluated I discussed her case today and non-healing traumatic lower extremity ulceration. Ulceration to the right lower extremity was not debrided as noted in the clinical panel above.? Ulceration measures 0.3 cm x 0.3 cm x 0.1 cm.? No signs of infection.? Ulceration demonstrates healthy appearance with superficial scabbing.?Hydrogel applied to the wound site.? Discussed continued use of her Tubigrip stocking however patient states that she does not like the tight feeling of compression and refuses to wear them.?She is to change dressings daily, daughter will assist in changing the dressings.? She was reminded to keep her dressing in place and to not leave the wound uncovered. Wound is improving and nearing closure. I discussed with patient continuing to elevate her lower extremities to control any edema about the lower extremity/wound site to aid in healing.? I discussed she must remain compliant in wearing the Tubigrip compression as her legs have swollen today. She does demonstrate very weak pedal pulses bilaterally.? Vascular studies for arterial and venous were ordered, Awaiting results.? Patient has failed to go for her vascular studies she was again reminded of this today. Previous discussion from 08/09/22: Daughter addressed some concerns with me that her mother is leaving her wound open to the air at times.? This was discussed that she needs to keep the dressing on and in place at all times.? It was also brought up that the daughter has caught her mother allowing the dog to lick her wound.? I discussed that this is a major infection risk and needs to stop immediately.? This was discussed in great detail including all major risks associated with this.? Patient and daughter voiced understanding of this discussion. Daughter informs me that her mother is no longer leaving it open or allowing her dog to lick the site and has been taking better care of her wound, however mother lives alone so it is possible it could still be occurring.? I will continue to monitor for signs of infection. I did discuss signs of infection to observe for today.? I discussed if she experiences any increasing redness about the wound site that moves up the leg, any purulent drainage from the wound site, any malodor, or if she experiences any nausea, vomiting, fever greater than 101 degrees, chills that these are signs of a progressing infection and she needs to report to the ED.? She voices understanding of this today. All questions answered.? She is to return to the wound care center in in 2 weeks for follow-up.? She may return sooner if she has any problems.? She may also call sooner should she have any questions or concerns. Note: [employer] speech recognition surgical first assistant software was used to create portions of this document. Sound-alike and misspelled words, as well as other surgical first assistant errors may be contained in the documentation.
[2022-10-04 08:47] VITALS: BP 155/85; PULSE 76; RESP 18; TEMP 35.9
== END 2022-10-09 23:59 | disposition home or self-care (01) ==
LOC: WC 08:45
PROVIDERS: Visit Provider Student in an Organized Health Care Education/Training Program
DX: L97.212 Non-pressure chronic ulcer of right calf with fat layer exposed (principal); N18.30 Chronic kidney disease, stage 3 unspecified; D50.9 Iron deficiency anemia, unspecified; Z60.2 Problems related to living alone; E78.5 Hyperlipidemia, unspecified; T14.8XXD Other injury of unspecified body region, subsequent encounter; Z86.73 Personal history of transient ischemic attack (TIA), and cerebral infarction without residual deficits; I12.9 Hypertensive chronic kidney disease with stage 1 through stage 4 chronic kidney disease, or unspecified chronic kidney disease
CPT/HCPCS: 99213; G0463

== ENCOUNTER 2022-10-18 08:43 | Outpatient (RCR) | payer MEDICARE, MEDICAID, SELFPAY ==
[2022-10-10 00:34] VITALS: BP 155/85; PULSE 76; RESP 18; TEMP 35.9
[2022-10-18 08:48] VITALS: BP 156/96; PULSE 82; TEMP 35.3
--- NOTE | 2022-10-18 09:00 | PCM.WC.PN ---
History of Present Illness Date of Service: 10/18/22 Chief Complaint: Right lower extremity wound History of Wound: Patient is a 77-year-old female who presents to the wound care center as a referral by her primary care physician for a right lower extremity wound. Patient states that she has history of stage III CKD, TIA, and heart cath. She states following the heart cath in February she developed cellulitis of the right lower extremity. She states that she was treated with antibiotics and the cellulitis resolved. She states that however following this in May she bumped the right lower extremity against her bed frame creating a skin flap/wound. She was advised to not remove the skin and just dressed with triple antibiotic ointment. However she followed up with primary care because she again developed some redness around the wound and was placed on oral antibiotics 3 weeks ago. This has aided in resolving the erythema about the wound however they report the wound has not decreased in size since May. Patient denies being diabetic and denies smoking. She lives alone at home but her daughter is only 1 mile from the house and frequently visits. Subjective Subjective Patient is a 77-year-old female who presents for follow-up of a right lower extremity wound secondary to bumping it against her bed frame.?She has been changing the dressings daily using Hydrogel with the assistance of her daughter.?Daughter states the wound is healed. She denies any constitutional symptoms today.?She has no further complaints today. Objective Data Objective Data Vital Signs: Vital Signs Temp Pulse Resp BP 95.6 F L 82 18 156/96 H 10/18/22 08:48 10/18/22 08:48 10/10/22 00:34 10/18/22 08:48 Weight: 205 kg Physical Exam Const alert, oriented x3, no apparent distress and well nourished General Appearance: cooperative HEENT normocephalic Eyes General Eye: normal appearance of both eyes Neck General: normal visual inspection Lymph Lymphatic: no lymphadenopathy noted and no lymphedema noted Resp normal respiratory effort Cardio regular rate and regular rhythm Extremity normal capillary refill, no joint enlargement, no calf tenderness and no pedal edema Extremity Narrative: Right lower extremity demonstrates varicosities. Skin is thin/atrophic.? DP and PT pulses weakly palpable.? Capillary fill time is less than 5 seconds. Normal temperature gradient with absent pedal hair growth Left lower extremity demonstrates varicosities.? Skin is thin/atrophic.? DP and PT pulses weakly palpable.? Capillary fill time is less than 5 seconds.? Normal temperature gradient with absent pedal hair growth Skin no rashes or lesions noted, skin turgor normal and no jaundice Wound Narrative: There is a traumatic ulceration noted to the mid lateral calf secondary to contact with a bed frame.? Ulceration is superficial and circular in nature. There is no malodor, no purulent drainage, no palpable fluctuance/bogginess, no visible abscess formation, or other localized signs of infection. This ulceration has healed today. Neuro moves all extremities Debridement Note Debridement Note No debridement was completed: No debridement was completed today Post-Debridement Measurements and Additional Note: Post-Debridement Measurements/Treatment WC - Nurse 1 - General Ulcer Assessment Start: 10/18/22 08:48 Freq: Status: Active Protocol: JOHAN Activity Type Activity Date Activity User E-sign Co-sign Detail Recorded Client Recorded Date Recorded By Document 10/18/22 08:48 KELLY [id number] 10/18/22 08:50 KELLY 10/18/22 08:48 WC - Today's Visit Information Type of service Follow-up Visit (Physician/UI DEVELOPER WITH ANGULAR JS ) Arrival Mode Ambulatory Patient Identification Verified (Name & Yes ) Patient Requires Transmission-Based No Precautions Safety Precautions NA Vital Signs Temperature (97.8 F-99.1 F) 95.6 F L Temperature Source Temporal Pulse Rate (60-100) 82 Pulse Location Monitor Blood Pressure (90/60-120/80) 156/96 H Blood Pressure Mean (mm Hg) 116 Source Monitor History Since Last Visit- (Skip if this is Patient's initial visit) Have you changed medications since your No last visit? Any new allergies or adverse reactions No Had a fall/change in ADL's that may No increase risk of falls Signs or symptoms of abuse and/or No neglect since last visit Have you been in the hospital since your No last visit? Has dressing in place as prescribed No Has compression in place as prescribed N/A Has offloadiing in place as prescribed N/A Experienced any changes in pain level or No management Left Footwear Regular Shoe Right Footwear Regular Shoe Pain Scale: 0-10 Numeric Is Patient Pain Free? Yes LYN - Nurse 1 - General Ulcer Measurement Start: 10/18/22 08:48 Freq: Status: Active Protocol: Activity Type Activity Date Activity User E-sign Co-sign Detail Recorded Client Recorded Date Recorded By Document 10/18/22 08:48 AR [id number] 10/18/22 08:50 AK 10/18/22 08:48 Wound Center Nurse 1 #1 Right Lateral leg -Combined with other wound No -Current Size (cm) - Length 0.1 -Current Size (cm) - Width 0.1 -Current Size (cm) - Depth 0.1 -Total Square Cm 0.01 -Date of Last Picture (Recall this 10/18/22 field) -Photo Taken Yes -Tunneling No -Undermining/Tunneling No -Circular Undermining No -Change in Wound Grade/Stage No -Exudate Amt None Present -Wound Margin Distinct, Outline Attached -Granulation Quality N/A -Slough/Fibrin No -Necrosis Amt None Present (0 %) -Structure Exposed N/A -Texture (Melissa-wound Skin Appearance) No Abnormality, Assessed -Moisture (Melissa-wound Skin Appearance) No Abnormality, Assessed -Color (Melissa-wound Skin Appearance) No Abnormality, Assessed -Temperature (Melissa-wound Skin No Abnormality Appearance) (Pt Warm) -Tenderness on Palpation (Melissa-wound No Skin Appearance) -Ulcer Cleansing Rinsed/ Irrigated with Saline -Foul Odor after Cleansing No -Anesthetic Used 5% Lidocaine Gel Assessment/Plan Assessment/Plan (1) Non-pressure chronic ulcer of right calf with fat layer exposed: CODE(S): L97.212 - Non-pressure chronic ulcer of right calf with fat layer exposed (2) Traumatic ulcer of right lower leg with fat layer exposed: CODE(S): L97.912 - Non-pressure chronic ulcer of unspecified part of right lower leg with fat layer exposed (3) Delayed healing of traumatic wound: CODE(S): T14.8XXD - Other injury of unspecified body region, subsequent encounter (4) Anemia: CODE(S): D64.9 - Anemia, unspecified (5) HLD (hyperlipidemia): CODE(S): E78.5 - Hyperlipidemia, unspecified QUALIFIERS: Hyperlipidemia type: unspecified Qualified Code(s): E78.5 - Hyperlipidemia, unspecified (6) Essential (primary) hypertension: CODE(S): I10 - Essential (primary) hypertension (7) Iron (Fe) deficiency anemia: CODE(S): D50.9 - Iron deficiency anemia, unspecified PLAN: Plan Patient seen and evaluated I discussed her case today and non-healing traumatic lower extremity ulceration. Ulceration to the right lower extremity has healed today. No signs of infection.? Discussed continued use of her Tubigrip stocking however patient states that she does not like the tight feeling of compression and refuses to wear them. I discussed with patient continuing to elevate her lower extremities to control any edema about the lower extremity/wound site to aid in healing.? I discussed she must remain compliant in wearing the Tubigrip compression as her legs have swollen today. She does demonstrate very weak pedal pulses bilaterally.? Vascular studies for arterial and venous were ordered, Awaiting results.? Patient has failed to go for her vascular studies she was again reminded of this today. I suspect she will not obtain the studies as she has healed today. Previous discussion from 08/09/22: Daughter addressed some concerns with me that her mother is leaving her wound open to the air at times.? This was discussed that she needs to keep the dressing on and in place at all times.? It was also brought up that the daughter has caught her mother allowing the dog to lick her wound.? I discussed that this is a major infection risk and needs to stop immediately.? This was discussed in great detail including all major risks associated with this.? Patient and daughter voiced understanding of this discussion. Daughter informs me that her mother is no longer leaving it open or allowing her dog to lick the site and has been taking better care of her wound, however mother lives alone so it is possible it could still be occurring.? I will continue to monitor for signs of infection. Her ulceration has healed today. At this point she may be discharged from the wound care center. All questions answered.? She is to return to the wound care center PRN.? She may return sooner if she has any problems.? She may also call sooner should she have any questions or concerns. Note: [employer] speech recognition marine engine machinist apprentice software was used to create portions of this document. Sound-alike and misspelled words, as well as other marine engine machinist apprentice errors may be contained in the documentation.
== END 2022-10-18 16:38 | disposition home or self-care (01) ==
LOC: WC 08:43
PROVIDERS: Visit Provider Student in an Organized Health Care Education/Training Program
DX: L97.212 Non-pressure chronic ulcer of right calf with fat layer exposed (principal); L97.912 Non-pressure chronic ulcer of unspecified part of right lower leg with fat layer exposed; N18.30 Chronic kidney disease, stage 3 unspecified; D50.9 Iron deficiency anemia, unspecified; E78.5 Hyperlipidemia, unspecified; I12.9 Hypertensive chronic kidney disease with stage 1 through stage 4 chronic kidney disease, or unspecified chronic kidney disease; T14.8XXD Other injury of unspecified body region, subsequent encounter; Z86.73 Personal history of transient ischemic attack (TIA), and cerebral infarction without residual deficits
CPT/HCPCS: 99213; G0463

== ENCOUNTER 2023-03-06 16:59 | Emergency (ER) | payer MEDICARE, MEDICAID, SELFPAY ==
[2023-03-06 17:00] VITALS: BP 134/78; PULSE 78; RESP 16; TEMP 36.4; O2SAT 98
[2023-03-06 17:54] VITALS: BMI 38.3
--- NOTE | 2023-03-06 18:20 | EX.ED.DYSGE1 ---
HPI History of Present Illness Chief Complaint: Lower Extremity Injury Detail of Chief Complaint: Skin tear left leg Informant: patient and family Onset/Context/Timing Onset: Today Narrative Narrative: Patient presents with a skin tear to the lateral aspect of her left lower leg. She does not remember what she hit it on. She had trouble controlling the bleeding at home and had a similar wound on her right leg that took quite some time to heal so family wanted her evaluated. Patient is currently on Eliquis. [facility] Medical History Acute gastric ulcer Alzheimer's dementia Anemia Anxiety Arthritis Atherosclerosis of coronary artery of [place] heart without angina pectoris Cardiology follow-up encounter Chronic anticoagulation Chronic cough Coagulopathy Difficulty swallowing Easy bruising Essential (primary) hypertension Excessive bleeding Fatty liver Gastric reflux GERD (gastroesophageal reflux disease) Hiatal hernia History of atrial fibrillation History of echocardiogram History of edema History of heart attack History of Holter monitoring History of IBS History of renal disease History of stress test HLD (hyperlipidemia) Hypertension Hypothyroidism Iron deficiency Low iron Non-smoker Obesity (BMI 30-39.9) Open wound Paroxysmal atrial fibrillation Pseudoseizures Schatzki's ring Shortness of breath on exertion Stage 3b chronic kidney disease (CKD) Syncope TIA (transient ischemic attack) Wears dentures Wears glasses Home Medications budesonide 3 mg capsule,delayed,extended release 9 mg PO DAILY asthma 06/08/20 [History Last Taken 11/30/20] sertraline 50 mg tablet 50 mg PO DAILY DEPRESSION 11/30/20 [History Last Taken 11/30/20] apixaban 5 mg tablet 5 mg PO BID BLOOD THINNER #60 tabs 06/09/21 [Rx Last Taken 09/21/22] ferrous sulfate 325 mg (65 mg iron) tablet 325 mg PO BID 05/11/22 [History Last Taken Unknown] pantoprazole 40 mg tablet,delayed release 40 mg PO BID 05/11/22 [History Last Taken Unknown] aspirin 81 mg capsule 81 mg PO DAILY 07/06/22 [History Last Taken 09/21/22] atorvastatin 20 mg tablet 20 mg PO QHS 07/06/22 [History Last Taken Unknown] loperamide 2 mg tablet (Imodium A-D) 2 mg PO Q4H PRN LOOSE STOOLS 07/06/22 [History Last Taken Unknown] furosemide 40 mg tablet See Rx Instructions .Route .COMPLEX #28 TABLETS 08/27/22 [Rx Last Taken Unknown] lisinopril 10 mg tablet 10 mg PO DAILY BP #90 tabs 11/20/22 [Rx Last Taken Unknown] levothyroxine 112 mcg tablet 125 mcg PO DAILY thyroid 01/22/23 [History Last Taken Unknown] potassium chloride 10 mEq tablet,extended release 10 meq PO DAILY 01/22/23 [History Last Taken Unknown] Allergy/AdvReac Type Severity Reaction Status Date / Time procaine [From Novocain] AdvReac Other Verified 03/06/23 16:59 Family History Mother Heart disease Father Heart disease Alcoholism Surgical History H/O cardiac radiofrequency ablation H/O coronary artery bypass surgery (01/29/08) History of colonoscopy History of esophagogastroduodenoscopy (EGD) History of left heart catheterization (01/12/19) Status post ablation of atrial fibrillation Social History household members: none Smoking Status: Never smoker alcohol intake: never substance use type: does not use caffeine: Yes Type: coffee Number of servings: 6 ROS ROS ED Constitutional Constitutional ED: Denies chills or fever(s) Eyes Eyes: Denies change in vision or discharge from eye(s) ENT ENT ED: Denies discharge from eye(s), rhinorrhea or sore throat Cardiovascular Cardiovascular: Denies chest pain Respiratory/Chest Respiratory/Chest: Denies cough or dyspnea Gastrointestinal Gastrointestinal: Denies abdominal pain, nausea or vomiting Musculoskeletal Musculoskeletal: Reports extremity pain; Denies back pain Integumentary Reports other Details: Skin tear left leg ; Denies Abrasions or rash Neurologic Neurologic: Denies headache(s) or weakness Allergic/Immunologic Allergic/Immunologic ED: Denies lip swelling or urticaria EXAM Physical Exam Const Vital Signs: 03/06/23 17:00 Temperature 97.6 F L Temperature Source Temporal Pulse Rate 78 Respiratory Rate 16 Blood Pressure 134/78 H Blood Pressure Mean 96 Pulse Ox 98 Oxygen Delivery Method Room Air Positive well nourished and well developed General Appearance ED: well developed HEENT Reports normocephalic and head/scalp atraumatic Eyes PERRL and EOMs intact bilaterally Neck supple Chest Wall inspection of chest normal and palpation of chest normal Resp normal respiratory effort and clear to auscultation bilaterally Cardio regular rate and regular rhythm GI normal to inspection, nondistended, normoactive bowel sounds Palpation: soft Back/Spine no CVA tenderness Extremity Extremity Narrative: [place] shaped skin tear over the lateral portion of the left lower leg measuring approximate 1.5 cm on each side. Bleeding is controlled at this time. No sign of secondary infection. Neuro oriented x3 Sensorium / Orientation: alert Psych mental status grossly normal MDM MDM MDM Narrative Medical decision making narrative: Let is applied to the wound on the left leg. After 20 minutes or so I removed the cotton ball and cleaned her leg. It appears the skin is completely avulsed and not just pushed up to the top of the avulsion. Antibiotic ointment is applied and dressing placed. At this time I see no evidence of infection and I do not feel she needs prophylactic antibiotics. Wound care discussed. Discharge Plan Triage Chief Complaint: Lower Extremity Injury ED Provider: Terra Torres Dx/Rx/DC Orders Clinical Impression: Avulsion of skin Instructions: ED Skin Avulsion, ED Wound Care Prescriptions: No Action pantoprazole 40 mg tablet,delayed release (DR/EC) 40 mg PO BID ferrous sulfate 325 mg (65 mg iron) tablet 325 mg PO BID potassium chloride 10 mEq tablet extended release 10 meq PO DAILY levothyroxine 112 mcg tablet 125 mcg PO DAILY budesonide 3 MG capsule,delayed,extend.release 9 mg PO DAILY sertraline 50 MG tablet 50 mg PO DAILY loperamide [Imodium A-D] 2 mg Tablet 2 mg PO Q4H PRN (Reason: LOOSE STOOLS) Rx Instructions: administer after each loose stool until symptoms controlled; do not exceed 8 mg per 24 hrs aspirin 81 mg Capsule 81 mg PO DAILY atorvastatin 20 mg tablet 20 mg PO QHS apixaban 5 mg tablet 5 mg PO BID Qty: 60 11RF Hold Instructions: Resume on 03/16/22. Rx Instructions: TAKE 1 TABLET BY MOUTH TWICE A DAY furosemide 40 mg tablet See Rx Instructions .ROUTE .COMPLEX Qty: 28 11RF Dose Instruction: TAKE 1 TABLET BY MOUTH DAILY Rx Instructions: TAKE 1 TABLET BY MOUTH DAILY lisinopril 10 mg tablet 10 mg PO DAILY Qty: 90 3RF Primary Care Provider: Bal Benz Referrals: Bal Benz [[facility]] - 1 Week Disposition Disposition: Home, Self Care
[2023-03-06] MEDS: Lidocaine/Epi/Tetracaine 50 ML 1 APPLIC TOPICAL (18:36)
== END 2023-03-06 19:22 | disposition home or self-care (01) ==
PROVIDERS: Emergency Provider Emergency Medicine; PCP Family Medicine; Visit Provider Emergency Medicine
DX: S81.802A Unspecified open wound, left lower leg, initial encounter (principal); I48.0 Paroxysmal atrial fibrillation; N18.32 Chronic kidney disease, stage 3b; I25.10 Atherosclerotic heart disease of native coronary artery without angina pectoris; E78.5 Hyperlipidemia, unspecified; I12.9 Hypertensive chronic kidney disease with stage 1 through stage 4 chronic kidney disease, or unspecified chronic kidney disease; Z79.01 Long term (current) use of anticoagulants; W22.09XA Striking against other stationary object, initial encounter; K21.9 Gastro-esophageal reflux disease without esophagitis; Z79.82 Long term (current) use of aspirin; E03.9 Hypothyroidism, unspecified; Z79.899 Other long term (current) drug therapy
CPT/HCPCS: 99283

== ENCOUNTER 2023-03-24 16:19 | Emergency (ER) | payer MEDICARE, MEDICAID, SELFPAY ==
[2023-03-24 16:20] VITALS: BP 107/67; PULSE 86; RESP 18; TEMP 36; O2SAT 96
--- NOTE | 2023-03-24 16:37 | EX.ED.VISEXT ---
HPI <AIDE Clinton - Last Filed: 03/24/23 19:59> History of Present Illness Chief Complaint: Bite Narrative Narrative: Patient presenting today with a skin tear to her left lower extremity that she got from her dog when he accidentally jumped up on her and scratched her leg, causing a skin tear. She reports that her skin is very thin and she is on a blood thinner. The dog did not bite her. She is up-to-date on tetanus. She denies any other injury. ROS <AIDE Clinton - Last Filed: 03/24/23 19:59> ROS ED Constitutional Constitutional ED: Denies chills or fever(s) Cardiovascular Cardiovascular: Denies chest pain Respiratory/Chest Respiratory/Chest: Denies cough or dyspnea Gastrointestinal Gastrointestinal: Denies abdominal pain, nausea or vomiting Musculoskeletal Musculoskeletal: Denies arthralgias or myalgias Integumentary Reports Abrasions; Denies laceration Neurologic Neurologic: Denies paresthesias or weakness PFSH <AIDE Clinton - Last Filed: 03/24/23 19:59> PFS Medical History Acute gastric ulcer Alzheimer's dementia Anemia Anxiety Arthritis Atherosclerosis of coronary artery of [place] heart without angina pectoris Cardiology follow-up encounter Chronic anticoagulation Chronic cough Coagulopathy Difficulty swallowing Easy bruising Essential (primary) hypertension Excessive bleeding Fatty liver Gastric reflux GERD (gastroesophageal reflux disease) Hiatal hernia History of atrial fibrillation History of echocardiogram History of edema History of heart attack History of Holter monitoring History of IBS History of renal disease History of stress test HLD (hyperlipidemia) Hypertension Hypothyroidism Iron deficiency Low iron Non-smoker Obesity (BMI 30-39.9) Open wound Paroxysmal atrial fibrillation Pseudoseizures Schatzki's ring Shortness of breath on exertion Stage 3b chronic kidney disease (CKD) Syncope TIA (transient ischemic attack) Wears dentures Wears glasses Home Medications budesonide 3 mg capsule,delayed,extended release 9 mg PO DAILY asthma 06/08/20 [History Last Taken 11/30/20] sertraline 50 mg tablet 50 mg PO DAILY DEPRESSION 11/30/20 [History Last Taken 11/30/20] apixaban 5 mg tablet 5 mg PO BID BLOOD THINNER #60 tabs 06/09/21 [Rx Last Taken 09/21/22] ferrous sulfate 325 mg (65 mg iron) tablet 325 mg PO BID 05/11/22 [History Last Taken Unknown] pantoprazole 40 mg tablet,delayed release 40 mg PO BID 05/11/22 [History Last Taken Unknown] aspirin 81 mg capsule 81 mg PO DAILY 07/06/22 [History Last Taken 09/21/22] atorvastatin 20 mg tablet 20 mg PO QHS 07/06/22 [History Last Taken Unknown] loperamide 2 mg tablet (Imodium A-D) 2 mg PO Q4H PRN LOOSE STOOLS 07/06/22 [History Last Taken Unknown] furosemide 40 mg tablet See Rx Instructions .Route .COMPLEX #28 TABLETS 08/27/22 [Rx Last Taken Unknown] lisinopril 10 mg tablet 10 mg PO DAILY BP #90 tabs 11/20/22 [Rx Last Taken Unknown] levothyroxine 112 mcg tablet 125 mcg PO DAILY thyroid 01/22/23 [History Last Taken Unknown] potassium chloride 10 mEq tablet,extended release 10 meq PO DAILY 01/22/23 [History Last Taken Unknown] Allergy/AdvReac Type Severity Reaction Status Date / Time procaine [From Novocain] AdvReac Other Verified 03/24/23 16:21 Family History Mother Heart disease Father Heart disease Alcoholism Surgical History H/O cardiac radiofrequency ablation H/O coronary artery bypass surgery (01/29/08) History of colonoscopy History of esophagogastroduodenoscopy (EGD) History of left heart catheterization (01/12/19) Status post ablation of atrial fibrillation Social History household members: none Smoking Status: Never smoker alcohol intake: never substance use type: does not use caffeine: Yes Type: coffee Number of servings: 6 EXAM <AIDE Clinton - Last Filed: 03/24/23 19:59> Physical Exam Const Vital Signs: 03/24/23 16:20 Temperature 96.8 F L Temperature Source Temporal Pulse Rate 86 Respiratory Rate 18 Blood Pressure 107/67 Blood Pressure Mean 80 Pulse Ox 96 Oxygen Delivery Method Room Air Positive well nourished, well developed and no apparent distress General Appearance ED: well developed HEENT Reports normocephalic and head/scalp atraumatic Mouth ED: Yes moist mucous membranes normal Eyes PERRL and EOMs intact bilaterally Neck full ROM and supple Chest Wall inspection of chest normal Resp normal respiratory effort and clear to auscultation bilaterally Cardio regular rate and regular rhythm GI soft to palpation, non-tender, non-distended and no masses Back/Spine normal ROM and normal to inspection Extremity normal to inspection and full ROM Extremity Narrative: 5 cm superficial skin tear to the anterior aspect of the left lower leg. There is no laceration or anything that can be sutured. Bleeding is under control. Neuro oriented x3, CN's II-XII intact bilaterally, moves all extremities, no focal motor deficits and no sensory deficits noted Sensorium / Orientation: awake and alert Psych mental status grossly normal and thought process normal <Dr. Misbah Quezada, - Last Filed: 03/24/23 22:39> Physical Exam Const Vital Signs: 03/24/23 16:20 Temperature 96.8 F L Temperature Source Temporal Pulse Rate 86 Respiratory Rate 18 Blood Pressure 107/67 Blood Pressure Mean 80 Pulse Ox 96 Oxygen Delivery Method Room Air [facility] <AIDE Clinton - Last Filed: 03/24/23 19:59> [facility] Narrative Medical decision making narrative: Patient presenting due to a skin tear to her left lower extremity from her dog's nails when he jumped on her to get her attention. She has about a 5 cm skin tear to her leg. There is nothing that can be sutured. This will be extensively cleaned and irrigated, bacitracin ointment will be applied and it will be bandaged with a nonadherent dressing. She has been given instruction on signs of infection to look out for and reasons to return. Tetanus is up-to-date. She is to follow-up with her PCP and will be discharged home in stable condition. She is comfortable with plan. <Dr. Misbah Quezada, - Last Filed: 03/24/23 22:39> [facility] Narrative Medical decision making narrative: Patient presenting due to a skin tear to her left lower extremity from her dog's nails when he jumped on her to get her attention. She has about a 5 cm skin tear to her leg. There is nothing that can be sutured. This will be extensively cleaned and irrigated, bacitracin ointment will be applied and it will be bandaged with a nonadherent dressing. She has been given instruction on signs of infection to look out for and reasons to return. Tetanus is up-to-date. She is to follow-up with her PCP and will be discharged home in stable condition. She is comfortable with plan. This patient was seen with a PA/[employer] Individually assessed they patient including history and physical. I have reviewed everything on the chart that is available and agree with the documentation provided by the PA[employer] including discussion about the assessment, treatment plan, discussion, and return precautions. Patient with superficial skin tear on her leg. She does not need sutures for this. Wound was cleaned and placed in a bacitracin dressing. She is given wound care instructions and return precautions. Discharge Plan Triage Chief Complaint: Bite ED Midlevel Provider: Ximena Oliva ED Provider: Misbah Quezada Dx/Rx/DC Orders Clinical Impression: Skin tear Instructions: ED Abrasion Prescriptions: No Action pantoprazole 40 mg tablet,delayed release (DR/EC) 40 mg PO BID ferrous sulfate 325 mg (65 mg iron) tablet 325 mg PO BID potassium chloride 10 mEq tablet extended release 10 meq PO DAILY levothyroxine 112 mcg tablet 125 mcg PO DAILY budesonide 3 MG capsule,delayed,extend.release 9 mg PO DAILY sertraline 50 MG tablet 50 mg PO DAILY loperamide [Imodium A-D] 2 mg Tablet 2 mg PO Q4H PRN (Reason: LOOSE STOOLS) Rx Instructions: administer after each loose stool until symptoms controlled; do not exceed 8 mg per 24 hrs aspirin 81 mg Capsule 81 mg PO DAILY atorvastatin 20 mg tablet 20 mg PO QHS apixaban 5 mg tablet 5 mg PO BID Qty: 60 11RF Hold Instructions: Resume on 03/16/22. Rx Instructions: TAKE 1 TABLET BY MOUTH TWICE A DAY furosemide 40 mg tablet See Rx Instructions .ROUTE .COMPLEX Qty: 28 11RF Dose Instruction: TAKE 1 TABLET BY MOUTH DAILY Rx Instructions: TAKE 1 TABLET BY MOUTH DAILY lisinopril 10 mg tablet 10 mg PO DAILY Qty: 90 3RF Primary Care Provider: Bal Benz Referrals: Bal Benz MD [Primary Care Provider] - 5-7 Days Activity Restrictions/Additional Instructions: Clean area daily with mild soap and water and keep covered with antibiotic ointment and a bandage. Follow-up with your PCP return for any signs of infection. Disposition Disposition: Home, Self Care Discharge Date/Time: 03/24/23 17:56
[2023-03-24 17:22] VITALS: BMI 40.9
== END 2023-03-24 17:56 | disposition home or self-care (01) ==
PROVIDERS: Emergency Provider Student in an Organized Health Care Education/Training Program; PCP Family Medicine; Visit Provider Student in an Organized Health Care Education/Training Program
DX: S81.812A Laceration without foreign body, left lower leg, initial encounter (principal); I48.0 Paroxysmal atrial fibrillation; N18.32 Chronic kidney disease, stage 3b; I25.10 Atherosclerotic heart disease of native coronary artery without angina pectoris; E78.5 Hyperlipidemia, unspecified; I12.9 Hypertensive chronic kidney disease with stage 1 through stage 4 chronic kidney disease, or unspecified chronic kidney disease; Z79.51 Long term (current) use of inhaled steroids; F41.9 Anxiety disorder, unspecified; Z79.01 Long term (current) use of anticoagulants; Z86.73 Personal history of transient ischemic attack (TIA), and cerebral infarction without residual deficits; K21.9 Gastro-esophageal reflux disease without esophagitis; Z79.899 Other long term (current) drug therapy; Z79.82 Long term (current) use of aspirin; E03.9 Hypothyroidism, unspecified; W55.89XA Other contact with other mammals, initial encounter
CPT/HCPCS: 99283

== ENCOUNTER → 2023-04-23 | Outpatient (CLI) | payer MEDICARE, MEDICAID, SELFPAY | END | disposition home or self-care (01) | LOC: PSN 10:27 | PROVIDERS: PCP Family Medicine; Referring Provider Nurse Practitioner Gerontology; Visit Provider Nurse Practitioner Gerontology | DX: R42 Dizziness and giddiness (principal); I48.0 Paroxysmal atrial fibrillation | CPT/HCPCS: 93225; 93226 ==

== ENCOUNTER → 2023-05-21 | Outpatient (CLI) | payer MEDICARE, MEDICAID, SELFPAY ==
--- NOTE | 2023-05-21 09:03 | VDLE_ITS ---
Reason For Study: Edema RIGHT LEFT GSV is normal. GSV is normal in prox thigh. Rest of vessel CFV is compressible, spontaneous, phasic, was harvested for CABG. competent and demonstrates normal CFV is compressible, spontaneous, phasic, augmentation. competent, and demonstrates normal FV is compressible, spontaneous, phasic, augmentation. competent and demonstrates normal FV is compressible, spontaneous, phasic, augmentation. competent and demonstrates normal POP V is compressible, spontaneous, phasic, augmentation. competent and demonstrates normal POP V is compressible, spontaneous, phasic, augmentation. competent and demonstrates normal T/P Trunk is compressible. augmentation. PTV is compressible. T/P Trunk is compressible. RT PerV is compressible. PTV is compressible. Procedure LT PerV is compressible. This is a venous duplex using B-mode, color flow and spectral Doppler. Exam performed in department. The exam was diagnostic. VL/Venous Duplex US - Santy Extrem Interpretation Summary Deep veins of the lower extremities are bilaterally patent and compressible seg mentally. There is no evidence of deep vein thrombosis on either side. Valvular competence appears in tact within the proximal deep venous systems bilaterally. The right great saphenous vein appear s patent and compressible segmentally. The left great saphenous vein is patent and compressi ble in the left proximal thigh, and has been previously harvested more distally. Ordering Physician: Bal Benz Referring Physician: Bal Benz Performed By: Amor Nagel, RVT
== END | disposition home or self-care (01) ==
LOC: CVS 09:00
PROVIDERS: PCP Family Medicine; Referring Provider Family Medicine; Visit Provider Family Medicine
DX: R60.0 Localized edema (principal)
CPT/HCPCS: 93970

== ENCOUNTER 2023-06-28 15:12 | Emergency (ER) | payer MEDICARE, MEDICAID, SELFPAY ==
[2023-06-28 15:15] VITALS: BP 102/63; PULSE 83; RESP 16; TEMP 35.8; O2SAT 98
[2023-06-28 16:00] VITALS: BMI 41.1
--- NOTE | 2023-06-28 16:01 | ED.VIS.LOWEX ---
HPI History of Present Illness Chief Complaint: Lower Extremity Injury Narrative Narrative: Patient presents with skin tear to the right rivas from a dog accident yesterday. The dog was doing ZUMI's around the house. It ran into her leg. She is not 100% sure if it was the pause or the mouth. Although it did not bite her it could have been contact with the mouth. But she thinks it was the dogs cause. She is not diabetic. She is on blood thinners but is not having bleeding problems. No fevers or chills. Unsure when her tetanus shot was. I looked over her medication administration list over the last couple years and I do not see any sign of tetanus being given. She thought it may have been given a few months ago but I do not see verification of that so what will be done here. [facility] Medical History Acute gastric ulcer Alzheimer's dementia Anemia Anxiety Arthritis Atherosclerosis of coronary artery of [place] heart without angina pectoris Cardiology follow-up encounter Chronic anticoagulation Chronic cough Coagulopathy Difficulty swallowing Easy bruising Essential (primary) hypertension Excessive bleeding Fatty liver Gastric reflux GERD (gastroesophageal reflux disease) Hiatal hernia History of atrial fibrillation History of echocardiogram History of edema History of heart attack History of Holter monitoring History of IBS History of renal disease History of stress test HLD (hyperlipidemia) Hypertension Hypothyroidism Iron deficiency Low iron Non-smoker Obesity (BMI 30-39.9) Open wound Paroxysmal atrial fibrillation Pseudoseizures Schatzki's ring Shortness of breath on exertion Stage 3b chronic kidney disease (CKD) Syncope TIA (transient ischemic attack) Wears dentures Wears glasses Home Medications budesonide 3 mg capsule,delayed,extended release 9 mg PO DAILY asthma 06/08/20 [History Last Taken 11/30/20] sertraline 50 mg tablet 50 mg PO DAILY DEPRESSION 11/30/20 [History Last Taken 11/30/20] apixaban 5 mg tablet 5 mg PO BID BLOOD THINNER #60 tabs 06/09/21 [Rx Last Taken 09/21/22] ferrous sulfate 325 mg (65 mg iron) tablet 325 mg PO BID 05/11/22 [History Last Taken Unknown] pantoprazole 40 mg tablet,delayed release 40 mg PO BID 05/11/22 [History Last Taken Unknown] aspirin 81 mg capsule 81 mg PO DAILY 07/06/22 [History Last Taken 09/21/22] loperamide 2 mg tablet (Imodium A-D) 2 mg PO Q4H PRN LOOSE STOOLS 07/06/22 [History Last Taken Unknown] furosemide 40 mg tablet See Rx Instructions .Route .COMPLEX #28 TABLETS 08/27/22 [Rx Last Taken Unknown] lisinopril 10 mg tablet 10 mg PO DAILY BP #90 tabs 11/20/22 [Rx Last Taken Unknown] levothyroxine 112 mcg tablet 125 mcg PO DAILY thyroid 01/22/23 [History Last Taken Unknown] potassium chloride 10 mEq tablet,extended release 10 meq PO DAILY 01/22/23 [History Last Taken Unknown] atorvastatin 20 mg tablet 20 mg PO QHS #90 tabs 04/09/23 [Rx Last Taken Unknown] amoxicillin 875 mg-potassium clavulanate 125 mg tablet 1 tab PO Q12H #10 TABLETS 06/28/23 [Rx Last Taken Unknown] Allergy/AdvReac Type Severity Reaction Status Date / Time procaine [From Novocain] AdvReac Other Verified 06/28/23 15:13 Family History Mother Heart disease Father Heart disease Alcoholism Surgical History H/O cardiac radiofrequency ablation H/O coronary artery bypass surgery (01/29/08) History of colonoscopy History of esophagogastroduodenoscopy (EGD) History of left heart catheterization (01/12/19) Status post ablation of atrial fibrillation Social History household members: none Smoking Status: Never smoker alcohol intake: never substance use type: does not use caffeine: Yes Type: coffee Number of servings: 6 ROS ROS ED Constitutional Constitutional ED: Denies chills, fever(s) or subjective Cardiovascular Cardiovascular: Denies racing heartbeat Respiratory/Chest Respiratory/Chest: Denies cough or dyspnea Gastrointestinal Gastrointestinal: Denies nausea or vomiting Musculoskeletal Musculoskeletal: Reports other Details: See history of present illness. Integumentary Reports other Details: See history of present illness. Neurologic Neurologic: Denies paresthesias or weakness Endocrine Endocrinology: Denies polydipsia or polyuria Hematologic/Lymphatic Hematologic/Lymphatic: Reports easy bleeding and easy bruising; Denies lymphadenopathy Allergic/Immunologic Allergic/Immunologic ED: Denies urticaria EXAM Physical Exam Narrative Exam Narrative: General: Patient awake alert no acute distress. Sitting comfortably in the bed. HEENT shows no trauma Cardiorespiratory shows well-controlled heart rate. Lungs are clear. Saturations are normal. Abdomen is obese but benign. Extremities: There is really no edema. Her extremities are not thin though. The right lower extremity in the rivas has a large skin tear about 10 cm total around. But it is very thin skin. This is not amenable to suturing. There is no active bleeding. No sign of infection at this time. Skin: See above. Const Vital Signs: 06/28/23 15:15 Temperature 96.5 F L Temperature Source Temporal Pulse Rate 83 Respiratory Rate 16 Blood Pressure 102/63 Blood Pressure Mean 76 Pulse Ox 98 Oxygen Delivery Method Room Air MDM MDM MDM Narrative Medical decision making narrative: I explained that we really cannot suture this both due to the delay in presentation as this happened yesterday and the very thin skin of skin tear. She understands that. But we did have a long talk about how to care for this. We also talked that this will take a long time in fact will likely take months to heal. We will update tetanus. I will give a short course of antibiotics. Although it sounds like this was most likely a dog's paw that hit her leg it could have been the mouth and we are not sure. With her age overall illness being on lower extremities I would like to to try to avoid any signs of infection. Discharge Plan Triage Chief Complaint: Lower Extremity Injury ED Provider: Jose Cruz Dickerson Dx/Rx/DC Orders Clinical Impression: Skin tear, Dog scratch Instructions: ED Dog Bite, ED Skin Avulsion Prescriptions: New amoxicillin-pot clavulanate [amoxicillin-pot clavulanate] 875-125 mg tablet 1 tab PO Q12H Qty: 10 0RF No Action pantoprazole 40 mg tablet,delayed release (DR/EC) 40 mg PO BID ferrous sulfate 325 mg (65 mg iron) tablet 325 mg PO BID potassium chloride 10 mEq tablet extended release 10 meq PO DAILY levothyroxine 112 mcg tablet 125 mcg PO DAILY budesonide 3 MG capsule,delayed,extend.release 9 mg PO DAILY sertraline 50 MG tablet 50 mg PO DAILY loperamide [Imodium A-D] 2 mg Tablet 2 mg PO Q4H PRN (Reason: LOOSE STOOLS) Rx Instructions: administer after each loose stool until symptoms controlled; do not exceed 8 mg per 24 hrs aspirin 81 mg Capsule 81 mg PO DAILY apixaban 5 mg tablet 5 mg PO BID Qty: 60 11RF Hold Instructions: Resume on 03/16/22. Rx Instructions: TAKE 1 TABLET BY MOUTH TWICE A DAY furosemide 40 mg tablet See Rx Instructions .ROUTE .COMPLEX Qty: 28 11RF Dose Instruction: TAKE 1 TABLET BY MOUTH DAILY Rx Instructions: TAKE 1 TABLET BY MOUTH DAILY lisinopril 10 mg tablet 10 mg PO DAILY Qty: 90 3RF atorvastatin 20 mg tablet 20 mg PO QHS Qty: 90 3RF Primary Care Provider: Bal Benz Referrals: Bal Benz MD [Primary Care Provider] - 3-5 Days if not improving Disposition Disposition: Home, Self Care
[2023-06-28] MEDS: Diphth,Pertuss(Acell),Tet Vac 0.5 ML Vial IM (16:11)
--- NOTE | 2023-06-28 16:19 | ED.RN ---
Wound cleansed with saline and dressed with non-stick Telfa, gauze and anupama wrap. Patient tolerated well.
== END 2023-06-28 16:22 | disposition home or self-care (01) ==
PROVIDERS: Emergency Provider Emergency Medicine; PCP Family Medicine; Visit Provider Emergency Medicine
DX: S80.811A Abrasion, right lower leg, initial encounter (principal); I48.0 Paroxysmal atrial fibrillation; N18.32 Chronic kidney disease, stage 3b; I25.10 Atherosclerotic heart disease of native coronary artery without angina pectoris; I12.9 Hypertensive chronic kidney disease with stage 1 through stage 4 chronic kidney disease, or unspecified chronic kidney disease; E78.5 Hyperlipidemia, unspecified; Z86.73 Personal history of transient ischemic attack (TIA), and cerebral infarction without residual deficits; Z79.51 Long term (current) use of inhaled steroids; F41.9 Anxiety disorder, unspecified; Z79.01 Long term (current) use of anticoagulants; K21.9 Gastro-esophageal reflux disease without esophagitis; Z79.899 Other long term (current) drug therapy; Z79.82 Long term (current) use of aspirin; E03.9 Hypothyroidism, unspecified; Z23 Encounter for immunization; X58.XXXA Exposure to other specified factors, initial encounter; Y92.019 Unspecified place in single-family (private) house as the place of occurrence of the external cause
CPT/HCPCS: 90715; 99282

== ENCOUNTER 2023-07-16 11:56 | Observation (INO) | payer MEDICARE, MEDICAID, SELFPAY ==
[2023-07-16] VITALS (9 sets, daily range): BP systolic 97–150; BP diastolic 64–85; PULSE 67–100; RESP 12–21; TEMP 36.5–36.9; O2SAT 96–100; BMI 40.8; BMI 39.4
--- NOTE | 2023-07-16 12:10 | EKG12_ITS ---
Test Reason : SYNCOPE Blood Pressure : / mmHG Vent. Rate : 068 BPM Atrial Rate : 068 BPM P-R Int : 182 ms QRS Dur : 094 ms QT Int : 426 ms P-R-T Axes : 006 000 062 degrees QTc Int : 452 ms Normal sinus rhythm Nonspecific T wave abnormality Abnormal ECG Confirmed by MANAN TIRADO, KELSY ([id number]), film or videotape editor ENEIDA FREED ([id number]) on 07/22/2023 10:19:00 AM Referred By: Confirmed By:AVI HINKLE MD
--- NOTE | 2023-07-16 12:11 | EDS_ITS ---
HPI History of Present Illness Chief Complaint: Syncope Detail of Chief Complaint: Syncope Informant: patient and family Narrative Narrative: Patient presents to the emergency department after syncopal episode today. She presents via EMS from her primary care physician's office where she was seeing nurse practitioner Jostin Davidson for evaluation of her right leg wound. Patient was found to be orthostatic in the department and had told him that she had had a syncopal episode. Patient remembers going to the door to unlock it and try to make it back to the couch and then just remembers waking up on the floor. Patient denies significant headache. She is on apixaban for history of A-fib. She denies neck pain. She denies chest pain or abdominal pain. Patient states that she has not had much of an appetite all week. She just feels tired and sleepy. She denies chest pain or shortness of breath. She denies dysuria or urgency or frequency. [facility] Medical History Acute gastric ulcer Alzheimer's dementia Anemia Anxiety Arthritis Atherosclerosis of coronary artery of [place] heart without angina pectoris Cardiology follow-up encounter Chronic anticoagulation Chronic cough Coagulopathy Difficulty swallowing Easy bruising Essential (primary) hypertension Excessive bleeding Fatty liver Gastric reflux GERD (gastroesophageal reflux disease) Hiatal hernia History of atrial fibrillation History of echocardiogram History of edema History of heart attack History of Holter monitoring History of IBS History of renal disease History of stress test HLD (hyperlipidemia) Hypertension Hypothyroidism Iron deficiency Low iron Non-smoker Obesity (BMI 30-39.9) Open wound Paroxysmal atrial fibrillation Pseudoseizures Schatzki's ring Shortness of breath on exertion Stage 3b chronic kidney disease (CKD) Syncope TIA (transient ischemic attack) Wears dentures Wears glasses Home Medications budesonide 3 mg capsule,delayed,extended release 9 mg PO DAILY ASTHMA 06/08/20 [History Last Taken 07/16/23] ferrous sulfate 325 mg (65 mg iron) tablet 325 mg PO BID SUPPLEMENT 05/11/22 [History Last Taken 07/16/23] pantoprazole 40 mg tablet,delayed release 40 mg PO BID ACID REFLUX 05/11/22 [History Last Taken 07/16/23] loperamide 2 mg tablet (Imodium A-D) 2 mg PO Q4H PRN LOOSE STOOLS 10/28/22 [History Last Taken Unknown] lisinopril 10 mg tablet 10 mg PO DAILY BLOOD PRESSURE #90 tabs 11/20/22 [Rx Last Taken 07/16/23] potassium chloride 10 mEq tablet,extended release 10 meq PO DAILY SUPPLEMENT 01/22/23 [History Last Taken 07/16/23] atorvastatin 20 mg tablet 20 mg PO QHS CHOLESTEROL #90 tabs 04/09/23 [Rx Last Taken 07/15/23] acetaminophen 650 mg tablet,extended release (Tylenol Arthritis Pain) 650 mg PO Q12H PRN ARTHRITIS 07/16/23 [History Last Taken Unknown] apixaban 5 mg tablet 5 mg PO BID BLOOD THINNER 07/16/23 [History Last Taken 07/16/23] aspirin 81 mg tablet,delayed release 81 mg PO DAILY BLOOD THINNER 07/16/23 [History Last Taken 07/16/23] buspirone 5 mg tablet 5 mg PO TID ANXIETY 07/16/23 [History Last Taken 07/16/23] famotidine 20 mg tablet 20 mg PO QHS PRN ACID REFLUX 07/16/23 [History Last Taken Unknown] furosemide 40 mg tablet 40 mg PO DAILY FLUID 07/16/23 [History Last Taken 07/16/23] levothyroxine 100 mcg tablet 100 mcg PO DAILY THYROID 07/16/23 [History Last Taken 07/16/23] melatonin 10 mg tablet 10 mg PO QHS SLEEP 07/16/23 [History Last Taken 07/15/23] sertraline 100 mg tablet 100 mg PO QHS DEPRESSION 07/16/23 [History Last Taken 07/15/23] tramadol 50 mg tablet 50 mg PO Q6H PRN PAIN 07/16/23 [History Last Taken 07/16/23] Allergy/AdvReac Type Severity Reaction Status Date / Time procaine [From Novocain] AdvReac Other Verified 07/16/23 12:06 Family History Mother Heart disease Father Heart disease Alcoholism Surgical History H/O cardiac radiofrequency ablation H/O coronary artery bypass surgery (01/29/08) History of colonoscopy History of esophagogastroduodenoscopy (EGD) History of left heart catheterization (05/06/19) Status post ablation of atrial fibrillation Social History household members: none Smoking Status: Never smoker alcohol intake: never substance use type: does not use caffeine: Yes Type: coffee Number of servings: 6 ROS ROS ED ROS Narrative Syncope Review of Systems ROS Unobtainable: other Constitutional Constitutional ED: Reports lethargy; Denies chills, fever(s), sweats or weight loss Eyes Eyes: Denies blurry vision, change in vision or diplopia ENT ENT ED: Denies rhinorrhea or sore throat Cardiovascular Cardiovascular: Denies chest pain, orthopnea or racing heartbeat Respiratory/Chest Respiratory/Chest: Denies cough, dyspnea, dyspnea on exertion, orthopnea or sputum Gastrointestinal Gastrointestinal: Denies abdominal pain, diarrhea, nausea or vomiting Genitourinary Genitourinary ED: Denies dysuria, hematuria or urinary frequency Musculoskeletal Musculoskeletal: Denies arthralgias, back pain, myalgias or neck pain Integumentary Denies abscess, Abrasions or rash Neurologic Neurologic: Denies headache(s) or weakness Psychiatric Psychiatric: Denies anxiety, depression or suicidal thoughts Endocrine Endocrinology: Denies polydipsia, polyphagia or polyuria Hematologic/Lymphatic Hematologic/Lymphatic: Denies easy bleeding, easy bruising or lymphadenopathy Allergic/Immunologic Allergic/Immunologic ED: Denies mouth swelling, tongue swelling or urticaria EXAM Physical Exam Const Vital Signs: 07/16/23 11:57 07/16/23 12:16 07/16/23 13:11 Temperature 97.9 F Temperature Source Oral Pulse Rate 68 Pulse Rate [Lying] 71 Pulse Rate [Sitting (for 1 minute prior to obtaining)] 73 Pulse Rate [Standing (for 1 minute prior to obtaining)] 100 Respiratory Rate 13 Respiratory Effort Short of Breath Respiratory Pattern Normal Blood Pressure 113/76 Blood Pressure [Lying] 137/71 H Blood Pressure [Sitting (for 1 minute prior to obtaining)] 140/79 H Blood Pressure [Standing (for 1 minute prior to obtaining)] 97/64 Blood Pressure Mean 88 Blood Pressure Mean [Lying] 93 Blood Pressure Mean [Sitting (for 1 minute prior to obtaining)] 99 Blood Pressure Mean [Standing (for 1 minute prior to obtaining)] 75 Pulse Ox 99 Oxygen Delivery Method Room Air 07/16/23 14:00 Temperature Temperature Source Pulse Rate 72 Pulse Rate [Lying] Pulse Rate [Sitting (for 1 minute prior to obtaining)] Pulse Rate [Standing (for 1 minute prior to obtaining)] Respiratory Rate 13 Respiratory Effort Respiratory Pattern Blood Pressure 125/71 H Blood Pressure [Lying] Blood Pressure [Sitting (for 1 minute prior to obtaining)] Blood Pressure [Standing (for 1 minute prior to obtaining)] Blood Pressure Mean 89 Blood Pressure Mean [Lying] Blood Pressure Mean [Sitting (for 1 minute prior to obtaining)] Blood Pressure Mean [Standing (for 1 minute prior to obtaining)] Pulse Ox 98 Oxygen Delivery Method Room Air Positive well nourished and well developed General Appearance ED: well developed and NAD HEENT Reports TM's clear and moist mucous membranes normocephalic and atraumatic; Negative for trauma or tenderness Tympanic Membrane ED: Yes TM's clear Eyes PERRL and EOMs intact bilaterally General Eye ED: Negative for pale conjunctiva or scleral icterus Neck no lymphadenopathy, supple and no JVD General: Negative for tenderness Chest Wall inspection of chest normal and palpation of chest normal Chest: Negative for tenderness Resp normal respiratory effort and clear to auscultation bilaterally Effort and Inspection: Negative for respiratory distress or pain with movement Auscultation: Negative for rhonchi, wheezes or diminished lung sounds Cardio regular rate, regular rhythm, S1 normal heart sound, S2 normal heart sound and no murmurs Peripheral Pulses: pulses 2+ throughout GI normal to inspection, nondistended, normoactive bowel sounds, soft to palpation, non-tender, non-distended and no masses Back/Spine no CVA tenderness and no thoracic nor lumbar tenderness Extremity normal to inspection General Extremety ED: Negative for edema General Extremity: Negative for edema Neuro oriented x3, CN's II-XII intact bilaterally, no sensory deficits noted and gait normal Sensorium / Orientation: awake, alert, oriented to person, oriented to place and oriented to time Motor Exam: strength 5/5 throughout and strength abnormal Psych mental status grossly normal Skin no rashes or lesions noted and no wounds MDM MDM MDM Narrative Medical decision making narrative: Patient presents with a syncopal episode at home this morning. Patient found to be orthostatic in the office of her primary care physician. Presents to the ER for evaluation. Patient tells me she has not been eating well or drinking well over the last week or so. IV line established on arrival. Patient given a liter normal saline fluid bolus. CBC with differential obtained showing a 7.1 with hemoglobin of 14 and platelet count of 228. Chemistries unremarkable. BUN 25 and creatinine 2.33. Urine analysis showed 5 view BCs and negative for nitrite no signs of infection. Orthostatic vital signs were positive. Case will be discussed with hospitalist to evaluate patient for admission. I did do a CT scan of the brain without contrast that was also unremarkable. EKG obtained on arrival shows sinus rhythm with a rate of of [address] changes Lab Data Attestation: I reviewed the patient's lab results. Labs: Laboratory Results - last 24 hr 07/16/23 07/16/23 12:40 13:10 WBC 7.1 RBC 4.60 Hgb 14.3 Hct 44.6 MCV 97.0 MCH 31.1 MCHC 32.1 RDW Std Deviation 48.3 H RDW Coeff of Jessica 13.5 Plt Count 228 MPV 9.9 Immature Gran % (Auto) 0.100 Neut % (Auto) 64.5 Lymph % (Auto) 20.9 Price % (Auto) 13.0 H Eos % (Auto) 0.8 Baso % (Auto) 0.7 Absolute Neuts (auto) 4.6 Absolute Lymphs (auto) 1.48 Nucleated RBC % 0 Sodium 136 Potassium 3.6 Chloride 98 Carbon Dioxide 32.0 Anion Gap 6 BUN 25 H Creatinine 2.33 H Estim Creat Clear Calc 18.48 Est GFR (MDRD) Af Amer 26 L Est GFR (MDRD) Non-Af 22 L BUN/Creatinine Ratio 10.7 Glucose 113 H Calcium 9.5 Troponin I High Sens 13 Urine Color Yellow Urine Clarity Sl. Cloudy Urine pH 5.0 Ur Specific [place] 1.025 Urine Protein 30 H Urine Glucose (UA) Normal Urine Ketones 5 H Urine Occult Blood 10 H Urine Nitrite Negative Urine Bilirubin 1 H Urine Urobilinogen 1 H Ur Leukocyte Esterase 500 H Urine RBC 10-25 SEEN Urine WBC 5-10 SEEN Ur Squamous Epith Cells 5-10 SEEN Urine Bacteria 0 SEEN Hyaline Casts 0-5 SEEN Urine Mucus 0 SEEN Radiography Diagnostic Testing: Clinical Impression(s) from Imaging Studies Brain CT 07/16/23 13:15 IMPRESSION: Chronic involutional changes of the brain. Electronically Signed: Geoffrey Lezama MD at 13:39 EST , EKG Initial EKG: Attestation: I personally reviewed and interpreted this EKG as follows: Comments: Sinus rhythm with a rate of [address] changes Prior EKG tracings: available for review Prior: Unchanged Discharge Plan Dx/Rx/DC Orders Clinical Impression: Orthostatic hypotension, Syncope, Paroxysmal A-fib, ARMANDO (acute kidney injury) Disposition Disposition: Acute Care Hospital [facility]
[2023-07-16 12:52] LABS: Absolute Lymphocyte Count 1.48 X10^3/uL (0.83-4.51); Absolute Neutrophil Count 4.6 X10^3/uL (2.0-7.7); Basophil# 0.05 X10^3/uL; Basophil% 0.7 % (0-1); Eosinophil# 0.06 X10^3/uL; Eosinophils% 0.8 % (0-5); Hematocrit 44.6 % (37-47); Hemoglobin 14.3 g/dL (12.0-15.0); Lymphocyte # 1.48 X10^3/ul (0.83-4.51); Lymphocyte % 20.9 % (19-41); Mean Corp Hgb Conc 32.1 g/dL (32-36); Mean Corpuscular Hgb 31.1 pg (27.0-32.0); Mean Platelet Vol. 9.9 fl (6.2-12.0); Monocyte# 0.92 X10^3/uL; NRBC Flagged by Analyzer 0 % (0-5); Neutrophil # 4.57 X10^3/uL (2.7-7.7); Neutrophil % 64.5 % (47-70); Platelet Count 228 K/mm3 (150-450); RBC Distribution Width CV 13.5 % (11.6-14.6); RBC Distribution Width SD 48.3 fl (35.1-43.9); White Blood Count 7.1 K/mm3 (4.4-11.0)
[2023-07-16 13:12] LABS: Anion Gap 6 (5-15); BUN 25 mg/dL (7-18); BUN/Creat Ratio 10.7 RATIO (10-20); Calcium,Total 9.5 mg/dL (8.5-10.1); Chloride 98 mmol/L (98-107); Creatinine, Serum 2.33 mg/dL (0.55-1.02); EST Glomerular Filtration Rate 22 mL/min (>60); Est Glom Filt Rate - Afr Amer 26 mL/min (>60); Estimated Creatinine Clearance 18.48 ml/min; Glucose 113 mg/dL (74-106); Potassium 3.6 mmol/L (3.5-5.1); Sodium Level 136 mmol/L (136-145); Troponin-I HS 13 pg/mL (3.0-54.0)
[2023-07-16] MEDS: 0.9% Normal Saline (1000mL) 1,000 ML 150 ML IV (13:13)
[2023-07-16 13:15] LABS: Bacteria 0 SEEN /hpf (None Seen); Mucous, Urine 0 SEEN /hpf (<or=2+)
--- NOTE | 2023-07-16 13:15 | CT_ITS ---
STUDY: CT BRAIN WITHOUT CONTRAST REASON FOR EXAM: Female, 78 years old. Syncope, head injury RADIATION DOSAGE (If Supplied By Facility): CTDIvol = ( 44.99 ) mGy, DLP = ( 796.11 ) mGycm TECHNIQUE: Transaxial CT imaging of the brain was performed without administration of intravenous contrast material. Individualized dose optimization techniques were used for this CT. COMPARISON: Comparison is made with prior study dated November 30, 2020. FINDINGS: Normal soft tissue structures. Normal calvarium. There is mild cerebral atrophy with widening of the extra-axial spaces and ventricular dilatation. There are areas of decreased attenuation within the white matter tracts of the supratentorial brain, consistent with microvascular disease changes. Normal basal ganglia and thalami. Normal brainstem. There is mild cerebellar atrophy. There is no intracranial hemorrhage. There are no findings of an acute ischemic infarction. Atherosclerotic calcification of the cavernous portions of the internal carotid arteries bilaterally. Normal visualized paranasal sinuses. CT/Brain/Head without Contrast IMPRESSION: Chronic involutional changes of the brain. Electronically Signed: Geoffrey Lezama MD at 13:39 EST ,
[2023-07-16 13:29] LABS: Color, Urine Yellow (Yellow); Glucose, Dipstick Normal (Normal); Ketone-Dipstick 5 mg/dl (Negative); Leukocyte Esterase-Dipstick 500 /ul (Negative); Nitrite-Dipstick Negative (Negative); Occult Blood-Urine 10 /ul (Negative); Protein-Dipstick 30 mg/dl (Negative); Specific Gravity, Urine 1.025 (1.002-1.030); Urine Clarity Sl. Cloudy (Clear); Urine Urobilinogen 1 mg/dl (Normal)
[2023-07-16 13:42] LABS: Urine Bilirubin Dipstick 1 mg/dL (Negative)
[2023-07-16 13:43] LABS: Squamous Epithelial Cells - UA 5-10 SEEN /hpf (5-10)
[2023-07-16 13:44] LABS: Hyaline Cast 0-5 SEEN /lpf (0-5); Red Blood Cells-Urine 10-25 SEEN /hpf (0-5); White Blood Cells 5-10 SEEN /hpf (0-5)
--- NOTE | 2023-07-16 14:31 | PCM.HP.STD ---
[facility] - General General Date of Admission: 07/16/23 HPI Narrative HA GARAY, is a 78 F who presents to the hospital from her physician's office. She went there today to get checked on her chronic right lower extremity wound which does appear to be improving however that time she related to the office that she had an episode today where she was walking back from the door and she blacked out in an woke up on the ground. They sent her in for evaluation. She was very orthostatic on evaluation here otherwise the rest of the work-up is unremarkable. CT of the brain was normal with no head bleed despite being on Eliquis. She has noted that she has not been eating or drinking very well for the last couple of days, she is not sure why she has not been around anybody sick and she denies any abdominal pain or nausea and vomiting. She has had an 11 pound weight loss but she is not sure how long it is taken to lose the weight. [facility] Medical History Acute gastric ulcer Alzheimer's dementia Anemia Anxiety Arthritis Atherosclerosis of coronary artery of [place] heart without angina pectoris Cardiology follow-up encounter Chronic anticoagulation Chronic cough Coagulopathy Difficulty swallowing Easy bruising Essential (primary) hypertension Excessive bleeding Fatty liver Gastric reflux GERD (gastroesophageal reflux disease) Hiatal hernia History of atrial fibrillation History of echocardiogram History of edema History of heart attack History of Holter monitoring History of IBS History of renal disease History of stress test HLD (hyperlipidemia) Hypertension Hypothyroidism Iron deficiency Low iron Non-smoker Obesity (BMI 30-39.9) Open wound Paroxysmal atrial fibrillation Pseudoseizures Schatzki's ring Shortness of breath on exertion Stage 3b chronic kidney disease (CKD) Syncope TIA (transient ischemic attack) Wears dentures Wears glasses Home Medications budesonide 3 mg capsule,delayed,extended release 9 mg PO DAILY ASTHMA 06/08/20 [History Last Taken 07/16/23] ferrous sulfate 325 mg (65 mg iron) tablet 325 mg PO BID SUPPLEMENT 05/11/22 [History Last Taken 07/16/23] pantoprazole 40 mg tablet,delayed release 40 mg PO BID ACID REFLUX 05/11/22 [History Last Taken 07/16/23] loperamide 2 mg tablet (Imodium A-D) 2 mg PO Q4H PRN LOOSE STOOLS 07/06/22 [History Last Taken Unknown] lisinopril 10 mg tablet 10 mg PO DAILY BLOOD PRESSURE #90 tabs 11/20/22 [Rx Last Taken 07/16/23] potassium chloride 10 mEq tablet,extended release 10 meq PO DAILY SUPPLEMENT 01/22/23 [History Last Taken 07/16/23] atorvastatin 20 mg tablet 20 mg PO QHS CHOLESTEROL #90 tabs 04/09/23 [Rx Last Taken 07/15/23] acetaminophen 650 mg tablet,extended release (Tylenol Arthritis Pain) 650 mg PO Q12H PRN ARTHRITIS 07/16/23 [History Last Taken Unknown] apixaban 5 mg tablet 5 mg PO BID BLOOD THINNER 07/16/23 [History Last Taken 07/16/23] aspirin 81 mg tablet,delayed release 81 mg PO DAILY BLOOD THINNER 07/16/23 [History Last Taken 07/16/23] buspirone 5 mg tablet 5 mg PO TID ANXIETY 07/16/23 [History Last Taken 07/16/23] famotidine 20 mg tablet 20 mg PO QHS PRN ACID REFLUX 07/16/23 [History Last Taken Unknown] furosemide 40 mg tablet 40 mg PO DAILY FLUID 07/16/23 [History Last Taken 07/16/23] levothyroxine 100 mcg tablet 100 mcg PO DAILY THYROID 07/16/23 [History Last Taken 07/16/23] melatonin 10 mg tablet 10 mg PO QHS SLEEP 07/16/23 [History Last Taken 07/15/23] sertraline 100 mg tablet 100 mg PO QHS DEPRESSION 07/16/23 [History Last Taken 07/15/23] tramadol 50 mg tablet 50 mg PO Q6H PRN PAIN 07/16/23 [History Last Taken 07/16/23] Allergy/AdvReac Type Severity Reaction Status Date / Time procaine [From Novocain] AdvReac Other Verified 07/16/23 12:06 Family History Mother Heart disease Father Heart disease Alcoholism Surgical History H/O cardiac radiofrequency ablation H/O coronary artery bypass surgery (01/29/08) History of colonoscopy History of esophagogastroduodenoscopy (EGD) History of left heart catheterization (01/12/19) Status post ablation of atrial fibrillation Social History household members: none Smoking Status: Never smoker alcohol intake: never substance use type: does not use caffeine: Yes Type: coffee Number of servings: 6 ROS Constitutional Constitutional: Denies chills, fatigue, fever(s) or malaise Eyes Eyes: Denies blurry vision ENT HEENT: Denies headache(s) or nasal discharge Cardiovascular Cardiovascular: Denies chest pain, dyspnea on exertion or syncope Respiratory/Chest Respiratory/Chest: Denies cough, shortness of breath at rest or shortness of breath with exertion Gastrointestinal Gastrointestinal: Denies constipation, diarrhea, nausea or vomiting Genitourinary Genitourinary: Denies dysuria Neurologic Neurologic: Reports syncope; Denies focal weakness, numbness or tremor(s) Psychiatric Psychiatric: Denies anxiety or depression Vital Signs Vital Signs Vital Signs: 07/16/23 11:57 07/16/23 12:16 07/16/23 13:11 Temperature 97.9 F Temperature Source Oral Pulse Rate 68 Pulse Rate [Lying] 71 Pulse Rate [Sitting (for 1 minute prior to obtaining)] 73 Pulse Rate [Standing (for 1 minute prior to obtaining)] 100 Respiratory Rate 13 Respiratory Effort Short of Breath Respiratory Pattern Normal Blood Pressure 113/76 Blood Pressure [Lying] 137/71 H Blood Pressure [Sitting (for 1 minute prior to obtaining)] 140/79 H Blood Pressure [Standing (for 1 minute prior to obtaining)] 97/64 Blood Pressure Mean 88 Blood Pressure Mean [Lying] 93 Blood Pressure Mean [Sitting (for 1 minute prior to obtaining)] 99 Blood Pressure Mean [Standing (for 1 minute prior to obtaining)] 75 Pulse Ox 99 Oxygen Delivery Method Room Air 07/16/23 14:00 07/16/23 14:20 07/16/23 14:22 Temperature 97.9 F Temperature Source Oral Pulse Rate 72 70 70 Pulse Rate [Lying] Pulse Rate [Sitting (for 1 minute prior to obtaining)] Pulse Rate [Standing (for 1 minute prior to obtaining)] Respiratory Rate 13 12 14 Respiratory Effort Respiratory Pattern Blood Pressure 125/71 H 125/71 H 125/71 H Blood Pressure [Lying] Blood Pressure [Sitting (for 1 minute prior to obtaining)] Blood Pressure [Standing (for 1 minute prior to obtaining)] Blood Pressure Mean 89 89 89 Blood Pressure Mean [Lying] Blood Pressure Mean [Sitting (for 1 minute prior to obtaining)] Blood Pressure Mean [Standing (for 1 minute prior to obtaining)] Pulse Ox 98 97 98 Oxygen Delivery Method Room Air Room Air Weight Weight: 245 lb 9.519 oz Body Mass Index (BMI) 40.8 Physical Exam Narrative General: Alert, Oriented x3, Cooperative, No apparent distress HEENT: Atraumatic, PERRLA, EOMI, Normocephalic Oral: Moist Mucosa Neck: Supple, No JVD Lungs: Diminished, Normal air movement, No rhonchi, No wheeze, No rales Cardiovascular: Regular rate, Regular Rhythm, Normal S1, Normal S2, No murmurs Abdomen: Soft, Non Tender, Non-Distended, No Hepato-splenomegaly Extremities: No edema, Capillary Refill Less than 3 Seconds Skin: Wounds on her right and left lower extremities are wrapped evaluated today by her PCP Musculoskeletal: No Tenderness to Palpation of Joints or Extremities Neurological: Cranial nerves II-XII grossly intact, Motor Exam 5/5 strength throughout, Sensory exam intact to light touch and pain Psych/Mental Status: Normal Affect, Appropriate Results Lab / Micro Data 07/16/23 12:40 07/16/23 12:40 Labs: Laboratory Results - last 24 hr 07/16/23 12:40: WBC 7.1, RBC 4.60, Hgb 14.3, Hct 44.6, MCV 97.0, MCH 31.1, MCHC 32.1, RDW Std Deviation 48.3 H, RDW Coeff of Jessica 13.5, Plt Count 228, MPV 9.9, Immature Gran % (Auto) 0.100, Neut % (Auto) 64.5, Lymph % (Auto) 20.9, [place] % (Auto) 13.0 H, Eos % (Auto) 0.8, Baso % (Auto) 0.7, Absolute Neuts (auto) 4.6, Absolute Lymphs (auto) 1.48, Nucleated RBC % 0, Sodium 136, Potassium 3.6, Chloride 98, Carbon Dioxide 32.0, Anion Gap 6, BUN 25 H, Creatinine 2.33 H, Estim Creat Clear Calc 18.48, Est GFR (MDRD) Af Amer 26 L, Est GFR (MDRD) Non-Af 22 L, BUN/Creatinine Ratio 10.7, Glucose 113 H, Calcium 9.5, Troponin I High Sens 13 07/16/23 13:10: Urine Color Yellow, Urine Clarity Sl. Cloudy, Urine pH 5.0, Ur Specific [place] 1.025, Urine Protein 30 H, Urine Glucose (UA) Normal, Urine Ketones 5 H, Urine Occult Blood 10 H, Urine Nitrite Negative, Urine Bilirubin 1 H, Urine Urobilinogen 1 H, Ur Leukocyte Esterase 500 H, Urine RBC 10-25 SEEN, Urine WBC 5-10 SEEN, Ur Squamous Epith Cells 5-10 SEEN, Urine Bacteria 0 SEEN, Hyaline Casts 0-5 SEEN, Urine Mucus 0 SEEN Radiology Impression Brain CT 07/16/23 13:15 IMPRESSION: Chronic involutional changes of the brain. Electronically Signed: Geoffrey Lezama MD at 13:39 EST Reading Location ID and State: [facility] / [place] , Service support , Assessment & Plan Assessment/Plan (1) Syncope: PLAN: Plan 1. Syncope due to orthostatic hypotension/elevated creatinine ? Continue with IV fluids ? We will repeat orthostatic vital signs in the morning ? Given the presentation with her decreased p.o. intake as well as her rise in her creatinine will not proceed with an echo ? We will monitor on telemetry ? Is unclear as to what her baseline creatinine is as she has had wide variability in her labs baseline is probably around 1.6-1.7 2. A-fib/HTN/HLD/CAD status post CABG ? Continue with her home Eliquis and aspirin ? Blood pressures are currently stable we will hold her lisinopril and Lasix secondary to her orthostatic hypotension and elevated creatinine ? Continue with Lipitor 3. Hypothyroidism ? Stable ? Continue with Synthroid 4. GERD ? Stable ? Continue with PPI 5. Anxiety/depression ? Stable ? Continue with her home medications DVT: Eliquis 75 minutes was spent on direct patient care, including documentation as well as chart review and collaboration with colleagues Charges/Coding Visit Charges Inpatient E&M: 44291 Init Hosp L3
[2023-07-16] MEDS: 0.9% Saline Lock 10 ML Syringe IV (18:02)
[2023-07-16] MEDS: 0.9% Normal Saline (1000mL) 1,000 ML 100 ML IV (18:02)
[2023-07-16] MEDS: Ferrous Sulfate 325 MG Tablet PO (18:03)
[2023-07-16] MEDS: traMADol 50 MG Tablet PO (22:48)
[2023-07-16] MEDS: Atorvastatin Calcium 20 MG Tablet PO (22:48)
[2023-07-16] MEDS: APIXABAN 5 MG TABLET PO (22:48)
[2023-07-16] MEDS: MELATONIN 10 MG TABLET PO (22:48)
[2023-07-16] MEDS: busPIRone 5 MG Tablet PO (22:48)
[2023-07-16] MEDS: Pantoprazole Sodium 40 MG Tablet PO (22:49)
[2023-07-16] MEDS: Sertraline 100 MG Tablet PO (22:49)
[2023-07-17] MEDS: 0.9% Normal Saline (1000mL) 1,000 ML 100 ML IV (04:26)
[2023-07-17 04:28] VITALS: BP 129/81; PULSE 73; RESP 18; TEMP 36.6; O2SAT 96
[2023-07-17 04:29] VITALS: BP 129/81; BP 146/83; BP 98/73; PULSE 64; PULSE 66
[2023-07-17] MEDS: Levothyroxine 100 MCG Tablet PO (05:51)
[2023-07-17] MEDS: busPIRone 5 MG Tablet PO ×2 (05:51→12:59)
[2023-07-17 06:22] LABS: Absolute Lymphocyte Count 1.38 X10^3/uL (0.83-4.51); Absolute Neutrophil Count 3.1 X10^3/uL (2.0-7.7); Basophil# 0.04 X10^3/uL; Basophil% 0.7 % (0-1); Eosinophils% 3.7 % (0-5); Hemoglobin 12.7 g/dL (12.0-15.0); Lymphocyte # 1.38 X10^3/ul (0.83-4.51); Lymphocyte % 25.4 % (19-41); Mean Corp Hgb Conc 32.6 g/dL (32-36); Mean Corpuscular Hgb 31.7 pg (27.0-32.0); Mean Corpuscular Volume 97.3 fL (81-99); Mean Platelet Vol. 9.4 fl (6.2-12.0); Monocyte# 0.75 X10^3/uL; Monocyte% 13.8 % (0-10); NRBC Flagged by Analyzer 0 % (0-5); Neutrophil # 3.05 X10^3/uL (2.7-7.7); Neutrophil % 56.2 % (47-70); Platelet Count 191 K/mm3 (150-450); RBC Distribution Width CV 13.4 % (11.6-14.6); RBC Distribution Width SD 48.3 fl (35.1-43.9); Red Blood Count 4.01 M/mm3 (4.2-5.4); White Blood Count 5.4 K/mm3 (4.4-11.0)
[2023-07-17 07:01] LABS: Anion Gap 6 (5-15); BUN 19 mg/dL (7-18); BUN/Creat Ratio 12.4 RATIO (10-20); Calcium,Total 8.6 mg/dL (8.5-10.1); Chloride 105 mmol/L (98-107); Creatinine, Serum 1.53 mg/dL (0.55-1.02); EST Glomerular Filtration Rate 35 mL/min (>60); Est Glom Filt Rate - Afr Amer 42 mL/min (>60); Estimated Creatinine Clearance 27.01 ml/min; Glucose 84 mg/dL (74-106); Potassium 3.9 mmol/L (3.5-5.1); Sodium Level 139 mmol/L (136-145)
--- NOTE | 2023-07-17 08:16 | PCM.PN.HOSP ---
Reason for Visit Reason for Visit: Diagnoses Syncope and collapse (07/16/23) Subjective Subjective Giggling when I walk in the room. Makes comments to family. Objective Data Objective Data Vital Signs: Vital Signs Temp Pulse Resp BP Pulse Ox O2 Del Method 36.6 C 66 18 129/81 H 96 Room Air 07/17/23 04:28 07/17/23 04:29 07/17/23 04:28 07/17/23 04:29 07/17/23 04:28 07/17/23 05:15 Oxygen Delivery Method Room Air Weight: 106.957 kg Body Mass Index (BMI) 39.4 Intake & Output: Intake and Output for Last 24 Hours 07/15/23 07/16/23 07/17/23 23:59 23:59 23:59 Intake Total 722.5 / 722.5 1000 / 1000 Output Total 0 / 0 Balance 722.5 / 722.5 1000 / 1000 Lab / Micro Data 07/17/23 06:10 07/17/23 06:10 Labs: Laboratory Results - last 24 hr 07/16/23 12:40: WBC 7.1, RBC 4.60, Hgb 14.3, Hct 44.6, MCV 97.0, MCH 31.1, MCHC 32.1, RDW Std Deviation 48.3 H, RDW Coeff of Jessica 13.5, Plt Count 228, MPV 9.9, Immature Gran % (Auto) 0.100, Neut % (Auto) 64.5, Lymph % (Auto) 20.9, [place] % (Auto) 13.0 H, Eos % (Auto) 0.8, Baso % (Auto) 0.7, Absolute Neuts (auto) 4.6, Absolute Lymphs (auto) 1.48, Nucleated RBC % 0, Sodium 136, Potassium 3.6, Chloride 98, Carbon Dioxide 32.0, Anion Gap 6, BUN 25 H, Creatinine 2.33 H, Estim Creat Clear Calc 18.48, Est GFR (MDRD) Af Amer 26 L, Est GFR (MDRD) Non-Af 22 L, BUN/Creatinine Ratio 10.7, Glucose 113 H, Calcium 9.5, Troponin I High Sens 13 07/16/23 13:10: Urine Color Yellow, Urine Clarity Sl. Cloudy, Urine pH 5.0, Ur Specific [place] 1.025, Urine Protein 30 H, Urine Glucose (UA) Normal, Urine Ketones 5 H, Urine Occult Blood 10 H, Urine Nitrite Negative, Urine Bilirubin 1 H, Urine Urobilinogen 1 H, Ur Leukocyte Esterase 500 H, Urine RBC 10-25 SEEN, Urine WBC 5-10 SEEN, Ur Squamous Epith Cells 5-10 SEEN, Urine Bacteria 0 SEEN, Hyaline Casts 0-5 SEEN, Urine Mucus 0 SEEN 07/17/23 06:10: WBC 5.4, RBC 4.01 L, Hgb 12.7, Hct 39.0, MCV 97.3, MCH 31.7, MCHC 32.6, RDW Std Deviation 48.3 H, RDW Coeff of Jessica 13.4, Plt Count 191, MPV 9.4, Immature Gran % (Auto) 0.200, Neut % (Auto) 56.2, Lymph % (Auto) 25.4, [place] % (Auto) 13.8 H, Eos % (Auto) 3.7, Baso % (Auto) 0.7, Absolute Neuts (auto) 3.1, Absolute Lymphs (auto) 1.38, Nucleated RBC % 0, Sodium 139, Potassium 3.9, Chloride 105, Carbon Dioxide 28.0, Anion Gap 6, BUN 19 H, Creatinine 1.53 H, Estim Creat Clear Calc 27.01, Est GFR (MDRD) Af Amer 42 L, Est GFR (MDRD) Non-Af 35 L, BUN/Creatinine Ratio 12.4, Glucose 84, Calcium 8.6 Radiography Diagnostic Testing: Radiology Impression Brain CT 07/16/23 13:15 IMPRESSION: Chronic involutional changes of the brain. Electronically Signed: Geoffrey Lezama MD at 13:39 EST , Physical Exam Const Constitutional Narrative: awake. non-toxic. Odd demeanor with snickering when I walk into the room. Does not answer my direct questions. Make comments to family/friends in the room. Assessment & Plan Assessment/Plan (1) Syncope: QUALIFIERS: Syncope type: vasovagal syncope Qualified Code(s): R55 - Syncope and collapse PLAN: Syncope due to orthostatic hypotension and dehydration Continue with IV fluids Hold diuretics and antihypertensives Check echo. PLAN: Plan Chronic conditions: A-fib/HTN/HLD/CAD status post CABG? Continue with her home Eliquis and aspirin? Blood pressures are currently stable we will hold her lisinopril and Lasix secondary to her orthostatic hypotension and elevated creatinine? Continue with Lipitor Hypothyroidism? Stable? Continue with Synthroid GERD? Stable? Continue with PPI Anxiety/depression? Stable? Continue with her home medications VTE prophylaxis: not indicated as pt already anticoagulated on apixaban. Bizzarre behavior by the patient. Patient looks at me does not answer direct questions and makes comments to her family in the bedside. Patient does have a adult daughter who is sitting in the cubby in the room now with her legs hanging off all over the drawers but with her legs within their was on her phone during encounter. There did not appear to be any real time for anyone in the room to actually have a genuine encounter with the physician involved in her care. Once that was established I left the room. Charges/Coding Visit Charges Inpatient E&M: 89949 Subs Hosp L1
[2023-07-17 09:46] VITALS: BP 143/71; PULSE 65; RESP 15; TEMP 36.6; O2SAT 96
[2023-07-17] MEDS: Pantoprazole Sodium 40 MG Tablet PO (09:50)
[2023-07-17] MEDS: Aspirin E.C. 81 MG Tablet PO (09:50)
[2023-07-17] MEDS: APIXABAN 5 MG TABLET PO (09:50)
[2023-07-17] MEDS: Ferrous Sulfate 325 MG Tablet PO ×2 (09:50→15:57)
[2023-07-17] MEDS: traMADol 50 MG Tablet PO (09:56)
[2023-07-17] MEDS: Ensure Plus High Protein 120 ML LIQUID PO (12:59)
[2023-07-17 14:18] VITALS: BP 117/81; BP 150/68; BP 157/88; PULSE 70; PULSE 72
[2023-07-17 14:28] VITALS: BP 156/80; PULSE 70; RESP 15; TEMP 36.6; O2SAT 98
--- NOTE | 2023-07-17 14:55 | PCM.DC.SUM ---
Providers Date of Admission: 07/16/23 Primary Care Physician: Dr. Bal Benz MD Reason For Visit: SYNCOPE Diagnosis Discharge Diagnosis (1) Syncope: Status: Acute Code(s): R55 - Syncope and collapse Qualifiers: Syncope type: vasovagal syncope Qualified Code(s): R55 - Syncope and collapse Plan: Syncope due to orthostatic hypotension and dehydration Continue with IV fluids Hold diuretics and antihypertensives Repeat orthostatics were still positive but patient was asymptomatic. We will discharge the patient with plan for her to continue to hold furosemide and lisinopril. Plan Chronic conditions: A-fib/HTN/HLD/CAD status post CABG? Continue with her home Eliquis and aspirin? Blood pressures are currently stable we will hold her lisinopril and Lasix secondary to her orthostatic hypotension and elevated creatinine? Continue with Lipitor Hypothyroidism? Stable? Continue with Synthroid GERD? Stable? Continue with PPI Anxiety/depression? Stable? Continue with her home medications VTE prophylaxis: not indicated as pt already anticoagulated on apixaban. Bizzarre behavior by the patient. Patient looks at me does not answer direct questions and makes comments to her family in the bedside. Patient does have a adult daughter who is sitting in the cubby in the room now with her legs hanging off all over the drawers but with her legs within their was on her phone during encounter. There did not appear to be any real time for anyone in the room to actually have a genuine encounter with the physician involved in her care. Once that was established I left the room. Medications at Discharge Home Medications budesonide 3 mg capsule,delayed,extended release 9 mg PO DAILY ASTHMA 06/08/20 ferrous sulfate 325 mg (65 mg iron) tablet 325 mg PO BID SUPPLEMENT 05/11/22 pantoprazole 40 mg tablet,delayed release 40 mg PO BID ACID REFLUX 05/11/22 loperamide 2 mg tablet (Imodium A-D) 2 mg PO Q4H PRN LOOSE STOOLS 07/06/22 atorvastatin 20 mg tablet 20 mg PO QHS CHOLESTEROL #90 tabs 04/09/23 acetaminophen 650 mg tablet,extended release (Tylenol Arthritis Pain) 650 mg PO Q12H PRN ARTHRITIS 07/16/23 apixaban 5 mg tablet 5 mg PO BID BLOOD THINNER 07/16/23 aspirin 81 mg tablet,delayed release 81 mg PO DAILY BLOOD THINNER 07/16/23 buspirone 5 mg tablet 5 mg PO TID ANXIETY 07/16/23 famotidine 20 mg tablet 20 mg PO QHS PRN ACID REFLUX 07/16/23 levothyroxine 100 mcg tablet 100 mcg PO DAILY THYROID 07/16/23 melatonin 10 mg tablet 10 mg PO QHS SLEEP 07/16/23 sertraline 100 mg tablet 100 mg PO QHS DEPRESSION 07/16/23 tramadol 50 mg tablet 50 mg PO Q6H PRN PAIN 07/16/23 Hospital Course Operations None Procedures None Weight / BMI Weight Weight: 107 kg Body Mass Index (BMI) 39.4 ABG / Lab / Microbiology Data 07/17/23 06:10 07/17/23 06:10 Laboratory: Laboratory Results - last 24 hr 07/17/23 06:10: WBC 5.4, RBC 4.01 L, Hgb 12.7, Hct 39.0, MCV 97.3, MCH 31.7, MCHC 32.6, RDW Std Deviation 48.3 H, RDW Coeff of Jessica 13.4, Plt Count 191, MPV 9.4, Immature Gran % (Auto) 0.200, Neut % (Auto) 56.2, Lymph % (Auto) 25.4, [place] % (Auto) 13.8 H, Eos % (Auto) 3.7, Baso % (Auto) 0.7, Absolute Neuts (auto) 3.1, Absolute Lymphs (auto) 1.38, Nucleated RBC % 0, Sodium 139, Potassium 3.9, Chloride 105, Carbon Dioxide 28.0, Anion Gap 6, BUN 19 H, Creatinine 1.53 H, Estim Creat Clear Calc 27.01, Est GFR (MDRD) Af Amer 42 L, Est GFR (MDRD) Non-Af 35 L, BUN/Creatinine Ratio 12.4, Glucose 84, Calcium 8.6 D/C Instructions Discharge Diet: Low fat / Low cholesterol Meaningful Use Info Meaningful Use Diagnoses (Choose all that apply): None applicable Discharge Plan Admission Admit Date/Time: 07/16/23 14:28 Primary Reason for Your Visit: Dizziness. Syncope Attending Provider: Mark Pennington Primary Care Provider: Bal Benz Consulting Providers: Tommy Draper Instructions Additional Instructions / Restrictions: He had a syncopal episode. He found that you have orthostatic hypotension, drop in blood pressure when you stand up. This still ongoing but your pressures are overall doing better and you seem to be tolerating that. It is concerning that your medications may be contributing that so I have recommended that you hold your furosemide and lisinopril for the time being. You do have recurrent episodes, please notify your physician or return to the emergency room. Discharge Orders/Prescriptions Prescriptions: Continued pantoprazole 40 mg tablet,delayed release (DR/EC) 40 mg PO BID ferrous sulfate 325 mg (65 mg iron) tablet 325 mg PO BID budesonide 3 MG capsule,delayed,extend.release 9 mg PO DAILY loperamide [Imodium A-D] 2 mg Tablet 2 mg PO Q4H PRN (Reason: LOOSE STOOLS) Rx Instructions: administer after each loose stool until symptoms controlled; do not exceed 8 mg per 24 hrs buspirone 5 mg tablet 5 mg PO TID levothyroxine 100 mcg tablet 100 mcg PO DAILY tramadol 50 mg tablet 50 mg PO Q6H PRN (Reason: PAIN) Patient Comments: FILLED ON 07/11/23 AT [facility] A 7 DAY SUPPLY. Rx Instructions: TAKE ONE TABLET BY MOUTH EVERY 6 HOURS NEEDED FOR PAIN FOR UP TO 7 DAYS. sertraline 100 mg tablet 100 mg PO QHS acetaminophen [Tylenol Arthritis Pain] 650 mg tablet extended release 650 mg PO Q12H PRN (Reason: ARTHRITIS) melatonin 10 mg tablet 10 mg PO QHS apixaban 5 mg tablet 5 mg PO BID aspirin 81 mg tablet,delayed release (DR/EC) 81 mg PO DAILY famotidine 20 mg tablet 20 mg PO QHS PRN (Reason: ACID REFLUX ) atorvastatin 20 mg tablet 20 mg PO QHS Qty: 90 3RF Discontinued potassium chloride 10 mEq tablet extended release 10 meq PO DAILY furosemide 40 mg tablet 40 mg PO DAILY lisinopril 10 mg tablet 10 mg PO DAILY Qty: 90 3RF Referrals / Follow Up: Bal Benz MD [Primary Care Provider] - Within 2 Weeks Disposition Disposition (needs filled in before D/C Order can be placed): Home, Self Care Charges/Coding Visit Charges Inpatient E&M: 68596 Disch Hosp
--- NOTE | 2023-07-17 15:11 | CASEMGMT ---
Met with patient to complete TONG form. TONG form explained to patient who then asked me to call her daughter and explain it to her. Call placed to patients daughter who voiced understanding. Original form placed in pt?s chart and copy provided to patient.? Mary Tariq, Discharge Planning Asst
--- NOTE | 2023-07-17 15:18 | CASEMGMT ---
Patient has order for discharge. RN CM in to patient room to discuss needs at discharge. Patient on phone with daughter Antonella and prefers CM to speak with daughter. Daughter denies needs for at discharge. Patient has CM through [facility] for resources. RN CM encouraged daughter to follow-up with PCP should needs arise, daughter voiced understanding. Daughter and patient had no further questions or concerns.
[2023-07-17 16:52] VITALS: BP 142/79; PULSE 66; RESP 15; O2SAT 99
== END 2023-07-17 17:17 | disposition home or self-care (01) ==
LOC: ED 14:25 → PCU 14:42
PROVIDERS: Admitting Provider Family Medicine; Emergency Provider Emergency Medicine; PCP Family Medicine
DX: I95.1 Orthostatic hypotension (principal); N17.9 Acute kidney failure, unspecified; G30.9 Alzheimer's disease, unspecified; F02.80 Dementia in other diseases classified elsewhere, unspecified severity, without behavioral disturbance, psychotic disturbance, mood disturbance, and anxiety; I48.0 Paroxysmal atrial fibrillation; N18.32 Chronic kidney disease, stage 3b; D64.9 Anemia, unspecified; I25.10 Atherosclerotic heart disease of native coronary artery without angina pectoris; Z79.82 Long term (current) use of aspirin; I12.9 Hypertensive chronic kidney disease with stage 1 through stage 4 chronic kidney disease, or unspecified chronic kidney disease; E78.5 Hyperlipidemia, unspecified; Z79.01 Long term (current) use of anticoagulants; E86.0 Dehydration; Z79.899 Other long term (current) drug therapy; F41.9 Anxiety disorder, unspecified; F32.A Depression, unspecified; Z79.890 Hormone replacement therapy
CPT/HCPCS: 36415; 70450; 80048; 81001; 84484; 85025; 93005; 96360; 96361; 97802; 99221; 99285; J7030; A4216; G0378

== ENCOUNTER 2023-07-26 20:07 | Inpatient (IN) | payer MEDICARE, MEDICAID, SELFPAY ==
[2023-07-26 20:08] VITALS: BP 114/67; PULSE 120; RESP 20; TEMP 37.3; O2SAT 93
[2023-07-26 20:16] VITALS: TEMP 37.7
--- NOTE | 2023-07-26 20:31 | EKG12_ITS ---
Test Reason : Blood Pressure : / mmHG Vent. Rate : 113 BPM Atrial Rate : 113 BPM P-R Int : 168 ms QRS Dur : 094 ms QT Int : 342 ms P-R-T Axes : 003 014 054 degrees QTc Int : 469 ms Sin[address] tachycardia N[address]pecific [address] abnormality Abnormal ECG Confirmed by JOSE TIRADO, MIKHAIL ([id number]), senior editor ENEIDA FREED ([id number]) on 07/31/2023 12:30:45 PM Referred By: Confirmed By:MIKHAIL GARCIA MD
--- NOTE | 2023-07-26 20:32 | EX.ED.DYSGE1 ---
HPI History of Present Illness Chief Complaint: Cold Sx Informant: family Narrative Narrative: Patient presents with her daughter for evaluation of flulike symptoms. Patient reportedly went to her pain management appointment today and daughter states she seemed her normal self. Upon returning home patient wanted to lay down and was covered in multiple blankets. She then developed vomiting and dry heaves. Daughter states that she then went to bed and slept for a while. The daughter went back to check on her she was sitting on the commode leaning over on the tub. The patient reported was confused not answering questions appropriately. [facility] Medical History Acute gastric ulcer Alzheimer's dementia Anemia Anxiety Arthritis Atherosclerosis of coronary artery of [place] heart without angina pectoris Cardiology follow-up encounter Chronic anticoagulation Chronic cough Coagulopathy Difficulty swallowing Easy bruising Essential (primary) hypertension Excessive bleeding Fatty liver Gastric reflux GERD (gastroesophageal reflux disease) Hiatal hernia History of atrial fibrillation History of echocardiogram History of edema History of heart attack History of Holter monitoring History of IBS History of renal disease History of stress test HLD (hyperlipidemia) Hypertension Hypothyroidism Iron deficiency Low iron Non-smoker Obesity (BMI 30-39.9) Open wound Orthostatic hypotension Paroxysmal A-fib Paroxysmal atrial fibrillation Pseudoseizures Schatzki's ring Shortness of breath on exertion Stage 3b chronic kidney disease (CKD) Syncope Syncope TIA (transient ischemic attack) Wears dentures Wears glasses Home Medications budesonide 3 mg capsule,delayed,extended release 9 mg PO DAILY ASTHMA 06/08/20 [History Last Taken 07/16/23] ferrous sulfate 325 mg (65 mg iron) tablet 325 mg PO BID SUPPLEMENT 05/11/22 [History Last Taken 07/16/23] pantoprazole 40 mg tablet,delayed release 40 mg PO BID ACID REFLUX 05/11/22 [History Last Taken 07/16/23] loperamide 2 mg tablet (Imodium A-D) 2 mg PO Q4H PRN LOOSE STOOLS 07/06/22 [History Last Taken Unknown] atorvastatin 20 mg tablet 20 mg PO QHS CHOLESTEROL #90 tabs 04/09/23 [Rx Last Taken 07/15/23] acetaminophen 650 mg tablet,extended release (Tylenol Arthritis Pain) 650 mg PO Q12H PRN ARTHRITIS 07/16/23 [History Last Taken Unknown] apixaban 5 mg tablet 5 mg PO BID BLOOD THINNER 07/16/23 [History Last Taken 07/16/23] aspirin 81 mg tablet,delayed release 81 mg PO DAILY BLOOD THINNER 07/16/23 [History Last Taken 07/16/23] buspirone 5 mg tablet 5 mg PO TID ANXIETY 07/16/23 [History Last Taken 07/16/23] famotidine 20 mg tablet 20 mg PO QHS PRN ACID REFLUX 07/16/23 [History Last Taken Unknown] levothyroxine 100 mcg tablet 100 mcg PO DAILY THYROID 07/16/23 [History Last Taken 07/16/23] melatonin 10 mg tablet 10 mg PO QHS SLEEP 07/16/23 [History Last Taken 07/15/23] sertraline 100 mg tablet 100 mg PO QHS DEPRESSION 07/16/23 [History Last Taken 07/15/23] tramadol 50 mg tablet 50 mg PO Q6H PRN PAIN 07/16/23 [History Last Taken 07/16/23] Allergy/AdvReac Type Severity Reaction Status Date / Time procaine [From Novocain] AdvReac Other Verified 07/26/23 20:08 Family History Mother Heart disease Father Heart disease Alcoholism Surgical History H/O cardiac radiofrequency ablation H/O coronary artery bypass surgery (01/29/08) History of colonoscopy History of esophagogastroduodenoscopy (EGD) History of left heart catheterization (01/12/19) Status post ablation of atrial fibrillation Social History household members: none Smoking Status: Never smoker alcohol intake: never substance use type: does not use caffeine: Yes Type: coffee Number of servings: 6 ROS ROS ED ROS Narrative Patient answers questions intermittently. She denies having pain at this time. She denies feeling nauseated at this time. She does report body aches. EXAM Physical Exam Const Vital Signs: 07/26/23 20:08 07/26/23 20:16 07/26/23 20:56 Temperature 99.1 F 99.8 F H Temperature Source Temporal Oral Pulse Rate 120 H Respiratory Rate 20 H Respiratory Effort Respiratory Pattern Blood Pressure 114/67 Blood Pressure Mean 82 Pulse Ox 93 Oxygen Delivery Method Room Air Room Air 07/26/23 20:56 07/26/23 23:15 07/26/23 23:26 Temperature 98.2 F Temperature Source Temporal Pulse Rate 100 96 Respiratory Rate 16 16 Respiratory Effort Normal Non-Labored Respiratory Pattern Normal Blood Pressure 98/58 L 98/58 L Blood Pressure Mean 71 71 Pulse Ox 97 96 Oxygen Delivery Method Room Air Room Air Positive obese Nutritional Appearance: obese HEENT Reports dry mucous membranes Mouth ED: Yes dry mucous membranes Mouth: dry mucous membranes Eyes EOMs intact bilaterally Chest Wall inspection of chest normal and palpation of chest normal Resp normal respiratory effort and clear to auscultation bilaterally Cardio Rate: tachycardic GI non-tender Auscultation: hypoactive bowel sounds Palpation: soft Extremity normal to inspection Neuro Neuro Narrative: Patient will open eyes to voice or touch. Will answer questions intermittently. Cooperative with commands. Skin no rashes or lesions noted MDM MDM MDM Narrative Medical decision making narrative: IV line established. Patient's oral temperature at the time of my exam is 100.0. She is ordered oral Tylenol. IV fluids initiated. Labwork obtained to evaluate for leukocytosis, anemia, and electrolyte derangement. Chest x-ray obtained to evaluate for acute lung pathology, cardiac size, or mediastinal abnormality. Urinalysis obtained to evaluate for infection/hematuria. Swab for COVID and influenza obtained. History & Record Review Discussion w/independent historian: Patient and Family Additional record(s) reviewed:: Prior inpatient record, Prior ED visit and Prior labs Lab Data Attestation: I reviewed the patient's lab results. Labs: Laboratory Results - last 24 hr 07/26/23 07/26/23 20:43 22:02 WBC 6.7 RBC 4.20 Hgb 13.5 Hct 39.5 MCV 94.0 MCH 32.1 H MCHC 34.2 RDW Std Deviation 46.2 H RDW Coeff of Jessica 13.5 Plt Count 172 MPV 10.2 Immature Gran % (Auto) 0.300 Neut % (Auto) 92.7 H Lymph % (Auto) 5.1 L Ste[place]s % (Auto) 1.2 Eos % (Auto) 0.3 Baso % (Auto) 0.4 Absolute Neuts (auto) 6.2 Absolute Lymphs (auto) 0.34 L Nucleated RBC % 0 Differential Comment SCANNED PT 15.4 H INR 1.2 APTT 30.7 Sodium 144 Potassium 2.9 L Chloride 112 H Carbon Dioxide 23.0 Anion Gap 9 BUN 16 Creatinine 1.34 H Est GFR (MDRD) Af Amer 49 L Est GFR (MDRD) Non-Af 41 L BUN/Creatinine Ratio 11.9 Glucose 120 H Lactic Acid 2.8 H* Calcium 8.8 Total Bilirubin 0.80 AST 14 L ALT 19 Alkaline Phosphatase 100 Total Protein 6.6 Albumin 3.3 Globulin 3.3 Albumin/Globulin Ratio 1.0 Urine Color Yellow Urine Clarity Cloudy Urine pH 5.0 Ur Specific [place] 1.015 Urine Protein 100 H Urine Glucose (UA) Normal Urine Ketones 5 H Urine Occult Blood 50 H Urine Nitrite Positive H Urine Bilirubin 1 H Urine Urobilinogen Normal Ur Leukocyte Esterase 500 H Urine RBC 0-5 SEEN Urine WBC >100 SEEN Ur Squamous Epith Cells 0-5 SEEN Urine Bacteria 1+ Urine Mucus RARE Radiography Chest X-Ray - ED: 1 View, Read by ED Physician, Chronic Changes and No Infiltrates Diagnostic Testing: Clinical Impression(s) from Imaging Studies Chest X-Ray 07/26/23 21:10 IMPRESSION: Moderate hiatal hernia. Sternotomy. No acute disease. Electronically Signed: Vince Stanley MD at 21:51 EST , EKG Initial EKG: Attestation: I personally reviewed and interpreted this EKG as follows: Interpretation: Sinus Tachycardia (Sinus tach at 113 with no acute ischemia.) Treatment and Re-Evaluation :: CBC reveals normal white count 6.7 with 92% neutrophils. Hemoglobin is 13.5. Chemistry studies significant for potassium of 2.9. This is replaced with IV potassium. BUN is 16 and creatinine is 1.34. Lactic acid is elevated at 2.8. LFTs are unremarkable. Urinalysis reveals evidence of infection with positive nitrites, greater than 100 white cells, 1+ bacteria. Blood and urine cultures have been sent. COVID and influenza swabs returned negative. Portable chest x-ray per my interpretation reveals no evidence of focal infiltrate with chronic changes. Radiology interpretation reviewed and agrees. EKG is sinus tach at 113. Patient initially received a 500 cc IV fluid bolus. At this time heart rate is improved to the 90s. Blood pressure has been in the upper 90s systolic with a MAP just over 70. Given her elevated lactic acid and negative COVID test I will go ahead and give her 30 cc/kg IV fluid bolus. She will be given Rocephin for her urinary tract infection. Discharge Plan Triage Chief Complaint: Cold Sx ED Provider: Terra Torres Dx/Rx/DC Orders Clinical Impression: UTI (urinary tract infection), Sepsis, Hypokalemia, Acidosis, lactic Prescriptions: No Action pantoprazole 40 mg tablet,delayed release (DR/EC) 40 mg PO BID ferrous sulfate 325 mg (65 mg iron) tablet 325 mg PO BID budesonide 3 MG capsule,delayed,extend.release 9 mg PO DAILY loperamide [Imodium A-D] 2 mg Tablet 2 mg PO Q4H PRN (Reason: LOOSE STOOLS) Rx Instructions: administer after each loose stool until symptoms controlled; do not exceed 8 mg per 24 hrs buspirone 5 mg tablet 5 mg PO TID levothyroxine 100 mcg tablet 100 mcg PO DAILY tramadol 50 mg tablet 50 mg PO Q6H PRN (Reason: PAIN) Patient Comments: FILLED ON 07/11/23 AT [facility] A 7 DAY SUPPLY. Rx Instructions: TAKE ONE TABLET BY MOUTH EVERY 6 HOURS NEEDED FOR PAIN FOR UP TO 7 DAYS. sertraline 100 mg tablet 100 mg PO QHS acetaminophen [Tylenol Arthritis Pain] 650 mg tablet extended release 650 mg PO Q12H PRN (Reason: ARTHRITIS) melatonin 10 mg tablet 10 mg PO QHS apixaban 5 mg tablet 5 mg PO BID aspirin 81 mg tablet,delayed release (DR/EC) 81 mg PO DAILY famotidine 20 mg tablet 20 mg PO QHS PRN (Reason: ACID REFLUX ) atorvastatin 20 mg tablet 20 mg PO QHS Qty: 90 3RF Primary Care Provider: Bal Benz Referrals: Bal Benz MD [Primary Care Provider] - Disposition Disposition: Acute Care Hospital [facility]
[2023-07-26] MEDS: Acetaminophen 325 MG Tablet 650 MG PO (20:54)
[2023-07-26] MEDS: 0.9% Normal Saline (500mL Bag) 500 ML 999 ML IV (20:54)
--- NOTE | 2023-07-26 21:10 | RAD_ITS ---
STUDY: X-RAY CHEST REASON FOR EXAM: Female, 78 years old. cough, fever TECHNIQUE: Single frontal view of the chest. COMPARISON: Chest x-ray March 09, 2022 FINDINGS: Sternotomy. Hiatal hernia. The lungs are clear and expanded. There is no demonstrated pleural abnormality. Normal size heart. Normal mediastinum and ale. Normal visualized pulmonary arteries. Normal visualized aortic arch and descending thoracic aorta. Normal visualized thoracic spine. Normal visualized ribs, clavicles, and shoulders. There is no demonstrated abnormality of the visualized soft tissue structures of the upper abdomen. RAD/Chest 1 View (Portable) IMPRESSION: Moderate hiatal hernia. Sternotomy. No acute disease. Electronically Signed: Vince Stanley MD at 21:51 EST ,
[2023-07-26 21:17] LABS: Absolute Lymphocyte Count 0.34 X10^3/uL (0.83-4.51); Absolute Neutrophil Count 6.2 X10^3/uL (2.0-7.7); Basophil# 0.03 X10^3/uL; Basophil% 0.4 % (0-1); Eosinophil# 0.02 X10^3/uL; Eosinophils% 0.3 % (0-5); Hematocrit 39.5 % (37-47); Hemoglobin 13.5 g/dL (12.0-15.0); Lymphocyte # 0.34 X10^3/ul (0.83-4.51); Lymphocyte % 5.1 % (19-41); Mean Corp Hgb Conc 34.2 g/dL (32-36); Mean Corpuscular Hgb 32.1 pg (27.0-32.0); Mean Platelet Vol. 10.2 fl (6.2-12.0); Monocyte# 0.08 X10^3/uL; Monocyte% 1.2 % (0-10); NRBC Flagged by Analyzer 0 % (0-5); Neutrophil # 6.21 X10^3/uL (2.7-7.7); Neutrophil % 92.7 % (47-70); POSITIVE DIFFERENTIAL YES; Platelet Count 172 K/mm3 (150-450); RBC Distribution Width CV 13.5 % (11.6-14.6); RBC Distribution Width SD 46.2 fl (35.1-43.9); White Blood Count 6.7 K/mm3 (4.4-11.0)
[2023-07-26 21:23] LABS: AST(SGOT) 14 U/L (15-37); Alanine Aminotransfer ALT/SGPT 19 U/L (13-56); Albumin, Serum 3.3 g/dL (3.2-5.0); Alkaline Phosphatase 100 U/L (45-117); Anion Gap 9 (5-15); BUN 16 mg/dL (7-18); BUN/Creat Ratio 11.9 RATIO (10-20); Calcium,Total 8.8 mg/dL (8.5-10.1); Chloride 112 mmol/L (98-107); Creatinine, Serum 1.34 mg/dL (0.55-1.02); EST Glomerular Filtration Rate 41 mL/min (>60); Est Glom Filt Rate - Afr Amer 49 mL/min (>60); Globulin 3.3 g/dL (2.2-4.2); Glucose 120 mg/dL (74-106); Potassium 2.9 mmol/L (3.5-5.1); Protein, Total 6.6 g/dL (6.4-8.2); Sodium Level 144 mmol/L (136-145)
[2023-07-26 21:26] LABS: Differential Indicated SCAN CRITERIA MET
[2023-07-26 21:28] LABS: Lactic Acid 2.8 mmol/L (0.4-1.9)
[2023-07-26 21:35] LABS: Partial Thromboplast Time 30.7 Seconds (24.1-36.2)
[2023-07-26 21:37] LABS: International Normalized Ratio 1.2; Prothrombin Time (Protime)PT. 15.4 SECONDS (11.7-14.9)
[2023-07-26 21:54] LABS: Differential Comment SCANNED
[2023-07-26] MEDS: Potassium Chloride 10mEq/100mL 10 MEQ/100 ML IV.SOLN. 100 MEQ IV BOLUS ×2 (22:04→23:10)
[2023-07-26] MEDS: 0.9% Normal Saline (1000mL) 1,000 ML 150 ML IV (22:06)
[2023-07-26 22:18] LABS: Color, Urine Yellow (Yellow); Glucose, Dipstick Normal (Normal); Ketone-Dipstick 5 mg/dl (Negative); Leukocyte Esterase-Dipstick 500 /ul (Negative); Nitrite-Dipstick Positive (Negative); Occult Blood-Urine 50 /ul (Negative); Protein-Dipstick 100 mg/dl (Negative); Specific Gravity, Urine 1.015 (1.002-1.030); Urine Clarity Cloudy (Clear); Urine Urobilinogen Normal (Normal)
[2023-07-26 22:23] LABS: Urine Bilirubin Dipstick 1 mg/dL (Negative)
[2023-07-26 22:24] LABS: Bacteria 1+ /hpf (None Seen); White Blood Cells >100 SEEN /hpf (0-5)
[2023-07-26 22:25] LABS: Mucous, Urine RARE /hpf (<or=2+); Red Blood Cells-Urine 0-5 SEEN /hpf (0-5); Squamous Epithelial Cells - UA 0-5 SEEN /hpf (5-10)
[2023-07-26 23:15] VITALS: BP 98/58; PULSE 100; RESP 16; O2SAT 97
[2023-07-26 23:26] VITALS: BP 98/58; PULSE 96; RESP 16; TEMP 36.8; O2SAT 96
[2023-07-26] MEDS: 0.9% Normal Saline (1000mL) 1,000 ML 999 ML IV ×2 (23:40→23:42)
[2023-07-26] MEDS: Ceftriaxone 1 GM/50 ML BAG IV (23:40)
[2023-07-27] VITALS (9 sets, daily range): BP systolic 97–116; BP diastolic 55–74; PULSE 72–91; RESP 16–22; TEMP 36.4–37.7; O2SAT 93–98; BMI 40.0
[2023-07-27] MEDS: Potassium Chloride 10mEq/100mL 10 MEQ/100 ML IV.SOLN. 100 MEQ IV BOLUS ×2 (00:05→01:05)
[2023-07-27] MEDS: 0.9% Normal Saline (1000mL) 1,000 ML 999 ML IV (00:08)
--- NOTE | 2023-07-27 00:27 | HP.PCM.HOS_ITS ---
HPI - General General Date of Admission: 07/27/23 Date of Service: 07/27/23 Chief Complaint: Chills HPI Narrative HA GARAY, is a 78 F with a significant history of CAD status post double vessel CABG; hypertension; atrial fibrillation status post ablation and on Eliquis who presented to emergency department with chills. Of note patient's symptoms started on the same day of presentation. Earlier in the day patient and her daughter went to the pain clinic. Patient went to the pain clinic since she has chronic lower back pain that radiates to her leg. At the pain clinic, pain medication could not be prescribed since it was patient's first time. So patient's daughter called patient PCP who repeated a tramadol prescription. In regard to her current symptoms patient was also vomiting. Patient's daughter returned from picking up patient's tramadol prescription. When patient daughter returned (from picking up patient's prescription) patient had been incontinent of urine; that is unusual for her although in times past patient has also had some rare episodes of incontinence. At the emergency department patient was given IV fluid per septic shock protocol and was started on maintenance infusion. Emergency department doctor reported that while at the emergency department, patient's patient's oral temperature was 100 Fahrenheit. [facility] Medical History Acute gastric ulcer Alzheimer's dementia Anemia Anxiety Arthritis Atherosclerosis of coronary artery of [place] heart without angina pectoris Cardiology follow-up encounter Chronic anticoagulation Chronic cough Coagulopathy Difficulty swallowing Easy bruising Essential (primary) hypertension Excessive bleeding Fatty liver Gastric reflux GERD (gastroesophageal reflux disease) Hiatal hernia History of atrial fibrillation History of echocardiogram History of edema History of heart attack History of Holter monitoring History of IBS History of renal disease History of stress test HLD (hyperlipidemia) Hypertension Hypothyroidism Iron deficiency Low iron Non-smoker Obesity (BMI 30-39.9) Open wound Orthostatic hypotension Paroxysmal A-fib Paroxysmal atrial fibrillation Pseudoseizures Schatzki's ring Shortness of breath on exertion Stage 3b chronic kidney disease (CKD) Syncope Syncope TIA (transient ischemic attack) Wears dentures Wears glasses Home Medications budesonide 3 mg capsule,delayed,extended release 9 mg PO DAILY ASTHMA 06/08/20 [History Last Taken 07/16/23] ferrous sulfate 325 mg (65 mg iron) tablet 325 mg PO BID SUPPLEMENT 05/11/22 [History Last Taken 07/16/23] pantoprazole 40 mg tablet,delayed release 40 mg PO BID ACID REFLUX 05/11/22 [History Last Taken 07/16/23] loperamide 2 mg tablet (Imodium A-D) 2 mg PO Q4H PRN LOOSE STOOLS 07/06/22 [History Last Taken Unknown] atorvastatin 20 mg tablet 20 mg PO QHS CHOLESTEROL #90 tabs 04/09/23 [Rx Last Taken 07/15/23] acetaminophen 650 mg tablet,extended release (Tylenol Arthritis Pain) 650 mg PO Q12H PRN ARTHRITIS 07/16/23 [History Last Taken Unknown] apixaban 5 mg tablet 5 mg PO BID BLOOD THINNER 07/16/23 [History Last Taken 07/16/23] aspirin 81 mg tablet,delayed release 81 mg PO DAILY BLOOD THINNER 07/16/23 [History Last Taken 07/16/23] buspirone 5 mg tablet 5 mg PO TID ANXIETY 07/16/23 [History Last Taken 07/16/23] famotidine 20 mg tablet 20 mg PO QHS PRN ACID REFLUX 07/16/23 [History Last Taken Unknown] levothyroxine 100 mcg tablet 100 mcg PO DAILY THYROID 07/16/23 [History Last Taken 07/16/23] melatonin 10 mg tablet 10 mg PO QHS SLEEP 07/16/23 [History Last Taken 07/15/23] sertraline 100 mg tablet 100 mg PO QHS DEPRESSION 07/16/23 [History Last Taken 07/15/23] tramadol 50 mg tablet 50 mg PO Q6H PRN PAIN 07/16/23 [History Last Taken 07/16/23] Allergy/AdvReac Type Severity Reaction Status Date / Time procaine [From Novocain] AdvReac Other Verified 07/26/23 20:08 Family History Mother Heart disease Father Heart disease Alcoholism Surgical History H/O cardiac radiofrequency ablation H/O coronary artery bypass surgery (01/29/08) History of colonoscopy History of esophagogastroduodenoscopy (EGD) History of left heart catheterization (01/12/19) Status post ablation of atrial fibrillation Social History household members: none Smoking Status: Never smoker alcohol intake: never substance use type: does not use caffeine: Yes Type: coffee Number of servings: 6 ROS ROS Narrative Pertinent positives and pertinent negatives as noted in HPI. All other systems were reviewed and are negative Vital Signs Vital Signs Vital Signs: 07/26/23 20:08 07/26/23 20:16 07/26/23 20:56 Temperature 99.1 F 99.8 F H Temperature Source Temporal Oral Pulse Rate 120 H Respiratory Rate 20 H Respiratory Effort Respiratory Pattern Blood Pressure 114/67 Blood Pressure Mean 82 Pulse Ox 93 Oxygen Delivery Method Room Air Room Air 07/26/23 20:56 07/26/23 23:15 07/26/23 23:26 Temperature 98.2 F Temperature Source Temporal Pulse Rate 100 96 Respiratory Rate 16 16 Respiratory Effort Normal Non-Labored Respiratory Pattern Normal Blood Pressure 98/58 L 98/58 L Blood Pressure Mean 71 71 Pulse Ox 97 96 Oxygen Delivery Method Room Air Room Air 07/27/23 00:09 Temperature Temperature Source Pulse Rate 91 Respiratory Rate 16 Respiratory Effort Respiratory Pattern Blood Pressure 104/74 Blood Pressure Mean 84 Pulse Ox 98 Oxygen Delivery Method Results Lab / Micro Data 07/26/23 20:43 07/26/23 20:43 Labs: Laboratory Results - last 24 hr 07/26/23 20:43: WBC 6.7, RBC 4.20, Hgb 13.5, Hct 39.5, MCV 94.0, MCH 32.1 H, MCHC 34.2, RDW Std Deviation 46.2 H, RDW Coeff of Jessica 13.5, Plt Count 172, MPV 10.2, Immature Gran % (Auto) 0.300, Neut % (Auto) 92.7 H, Lymph % (Auto) 5.1 L, Steele % (Auto) 1.2, Eos % (Auto) 0.3, Baso % (Auto) 0.4, Absolute Neuts (auto) 6.2, Absolute Lymphs (auto) 0.34 L, Nucleated RBC % 0, Differential Comment SCANNED, PT 15.4 H, INR 1.2, APTT 30.7, Sodium 144, Potassium 2.9 L, Chloride 112 H, Carbon Dioxide 23.0, Anion Gap 9, BUN 16, Creatinine 1.34 H, Est GFR (MDRD) Af Amer 49 L, Est GFR (MDRD) Non-Af 41 L, BUN/Creatinine Ratio 11.9, Glucose 120 H, Lactic Acid 2.8 H*, Calcium 8.8, Total Bilirubin 0.80, AST 14 L, ALT 19, Alkaline Phosphatase 100, Total Protein 6.6, Albumin 3.3, Globulin 3.3, Albumin/Globulin Ratio 1.0 07/26/23 22:02: Urine Color Yellow, Urine Clarity Cloudy, Urine pH 5.0, Ur Specific [place] 1.015, Urine Protein 100 H, Urine Glucose (UA) Normal, Urine Ketones 5 H, Urine Occult Blood 50 H, Urine Nitrite Positive H, Urine Bilirubin 1 H, Urine Urobilinogen Normal, Ur Leukocyte Esterase 500 H, Urine RBC 0-5 SEEN, Urine WBC >100 SEEN, Ur Squamous Epith Cells 0-5 SEEN, Urine Bacteria 1+, Urine Mucus RARE Micro: Microbiology 07/26/23 21:00 Nasal Secretion SARS-CoV-2 & FLU Antigen (Rapid) - Final Imagaing Radiology Impression Chest X-Ray 07/26/23 21:10 IMPRESSION: Moderate hiatal hernia. Sternotomy. No acute disease. Electronically Signed: Vince Stanley MD at 21:51 EST , Assessment & Plan Assessment/Plan (1) Hypokalemia: (2) Sepsis: QUALIFIERS: Sepsis acute organ dysfunction status: with acute organ dysfunction Sepsis type: sepsis due to unspecified organism Severe sepsis acute organ dysfunction type: unspecified Severe sepsis shock status: without septic shock Qualified Code(s): A41.9 - Sepsis, unspecified organism; R65.20 - Severe sepsis without septic shock (3) UTI (urinary tract infection): QUALIFIERS: Hematuria presence: without hematuria Urinary tract infection type: acute cystitis Qualified Code(s): N30.00 - Acute cystitis with out hematuria PLAN: Plan Acute cystitis Case was discussed with emergent department doctor who recommended that patient be admitted. Urinalysis seen at the emergency department reviewed: Abnormal. Chest x-ray was independently interpreted: No acute disease seen. Agrees with radiology interpretation. Patient have elevated heart rates with highest of 120. White count is less than 12,000 and more than 4000 Temperature is 99.8 ?F at the hospital. Highest respiratory rate is 20 which was at 1 time and documented. 20 Heart rate more than 90 (highest of 120 on presentation) WBC more than 12,000 or less than 4000 or more than 10% bands Patient with lactic acidosis likely current infection, trend. Received normal saline. Septic shock protocol. However sepsis is ruled out since there are no acute criteria for sepsis. Received Rocephin in the emergency department and continued. We will trend CBC and BMP. Hypokalemia Received IV potassium replacement. P.o. potassium ordered. Lactated Ringer's and potassium ordered. Trend BMP. Paroxysmal A-fib Sinus rhythm on presentation. Apixaban continued. Chronic pain Stable Hold tramadol for now as blood pressure is on the low side of normal and reportedly patient has slumped over before presentation. CKD stage IIIA Stable. Trend BMP. DVT prophylaxis: Not indicated as patient is on Eliquis and that has been continued Time spent in the patient's overall evaluation,decision-making process, review of diagnostic data, adjustment of management, discussion with other providers, nursing and ancillary staff involved in patient's care documentation, 75 minutes. Charges/Coding Visit Charges Inpatient E&M: 29745 Init Hosp L3
[2023-07-27 01:01] LABS: Reflex Lactate? Y
[2023-07-27] MEDS: Potassium Chloride 40 MEQ in 0.45% Normal Saline 1,000 ML 150 MEQ IV (02:08)
[2023-07-27 02:21] LABS: Lactic Acid 1.5 mmol/L (0.4-1.9)
[2023-07-27] MEDS: Potassium Chloride Oral Tablet 20 MEQ 40 MEQ PO (03:16)
[2023-07-27] MEDS: Ondansetron 4 MG/2 ML Vial IV (03:49)
[2023-07-27 05:32] LABS: Absolute Lymphocyte Count 0.25 X10^3/uL (0.83-4.51); Absolute Neutrophil Count 6.2 X10^3/uL (2.0-7.7); Basophil# 0.04 X10^3/uL; Basophil% 0.6 % (0-1); Eosinophil# 0.05 X10^3/uL; Eosinophils% 0.8 % (0-5); Hematocrit 35.5 % (37-47); Hemoglobin 11.5 g/dL (12.0-15.0); Lymphocyte # 0.25 X10^3/ul (0.83-4.51); Lymphocyte % 3.8 % (19-41); Mean Corp Hgb Conc 32.4 g/dL (32-36); Mean Corpuscular Hgb 31.8 pg (27.0-32.0); Mean Corpuscular Volume 98.1 fL (81-99); Mean Platelet Vol. 10.2 fl (6.2-12.0); Monocyte# 0.03 X10^3/uL; Monocyte% 0.5 % (0-10); NRBC Flagged by Analyzer 0 % (0-5); Neutrophil # 6.18 X10^3/uL (2.7-7.7); POSITIVE DIFFERENTIAL YES; POSITIVE MORPHOLOGY YES; Platelet Count 150 K/mm3 (150-450); RBC Distribution Width SD 50.5 fl (35.1-43.9); Red Blood Count 3.62 M/mm3 (4.2-5.4); White Blood Count 6.6 K/mm3 (4.4-11.0)
[2023-07-27 05:33] LABS: Differential Indicated SCAN CRITERIA MET
[2023-07-27] MEDS: busPIRone 5 MG Tablet PO ×3 (05:41→22:10)
[2023-07-27] MEDS: Levothyroxine 100 MCG Tablet PO (05:41)
[2023-07-27 05:59] LABS: Differential Comment SCANNED
[2023-07-27 06:07] LABS: Anion Gap 9 (5-15); BUN 15 mg/dL (7-18); BUN/Creat Ratio 10.4 RATIO (10-20); Calcium,Total 7.7 mg/dL (8.5-10.1); Chloride 116 mmol/L (98-107); Creatinine, Serum 1.44 mg/dL (0.55-1.02); EST Glomerular Filtration Rate 38 mL/min (>60); Est Glom Filt Rate - Afr Amer 46 mL/min (>60); Estimated Creatinine Clearance 29.91 ml/min; Glucose 74 mg/dL (74-106); Potassium 4.3 mmol/L (3.5-5.1); Sodium Level 144 mmol/L (136-145)
[2023-07-27] MEDS: Pantoprazole Sodium 40 MG Tablet PO ×2 (07:46→22:10)
[2023-07-27] MEDS: Ferrous Sulfate 325 MG Tablet PO ×2 (07:46→16:15)
[2023-07-27] MEDS: APIXABAN 5 MG TABLET PO ×2 (07:47→22:11)
[2023-07-27] MEDS: Aspirin E.C. 81 MG Tablet PO (07:47)
--- NOTE | 2023-07-27 08:04 | US_ITS ---
STUDY: RENAL ULTRASOUND - COMPLETE REASON FOR EXAM: Female, 78 years old. r/o hydronephrosis TECHNIQUE: Ultrasound evaluation of the kidneys was performed with real-time and static carreon-scale imaging. COMPARISON: None. FINDINGS: RIGHT KIDNEY: Normal location of the right kidney, which is normal in size. The right kidney measures 10.2 cm. There is a normal cortex of the right kidney. The renal cortex measures 1.1 cm. There is no right renal mass or cyst. There are no right renal calculi. There is no right hydronephrosis. DISTAL RIGHT URETER: There is non-visualization of the distal right ureter. There is no demonstrated right ureterovesical junction calculus. There is a visualized right ureteral jet. LEFT KIDNEY: Normal location of the left kidney, which is normal in size. The left kidney measures 9.8 cm. There is a normal cortex of the left kidney. The renal cortex measures 1.1 cm. There is no left renal mass or cyst. There are no left renal calculi. There is no left hydronephrosis. DISTAL LEFT URETER: There is non-visualization of the distal left ureter. There is no demonstrated left ureterovesical junction calculus. There is a visualized left ureteral jet. BLADDER: The distended urinary bladder has a volume of 211 ml. The empty urinary bladder has a volume of ml. There is a normal wall thickness of the distended urinary bladder. There is no demonstrated mass within the urinary bladder. There are no demonstrated bladder calculi. US/Kidney and Bladder IMPRESSION: Normal ultrasound of the kidneys and urinary bladder. Electronically Signed: Roshan Escobedo MD at 18:22 EST ,
--- NOTE | 2023-07-27 13:40 | CASEMGMT ---
RADHA PRUITT Face to Face with patient for initial transition planning/care coordination assessment. RN SONAL introduced self and role at [facility]. Patient lying in bed, alert and slightly confused, daughter at bedside. Daughter willing to participate in assessment and is able to answer all questions appropriately. Care providers, pharmacy, and demographics verified. Patient wishes to discharge home, will monitor progress with therapy for HHC vs Outpatient therapy. Patient and daughter state they have no further needs or concerns at this time. CM to follow for discharge planning needs that may arise. PCP: Demar Specialists: JOSE, project estimator; Edwina Pearson, pain Preferred Pharmacy: [email or web address] Insurance: Laurie Villalba Prescription Benefit: yes Living Will/HPOA: yes, daugshanique Cleaninganna Allen LNOK: daughters Living Arrangements: Patient lives alone in a first floor apartment. Patient is normally independent at home. Family is able to stay with patient if she needs assistance Transportation: daughter DME/HHC: Patient has grab bars, rollator, medcial alert. Patient has had [facility] in the past. Patient has SONAL Asencio with [facility]. Disposition Plan: Patient to discharge home with C vs Outpatient therapy, family support, and follow-up plans in place. Elif HAWKINS, RN, CM
--- NOTE | 2023-07-27 15:25 | NURSING ---
report called to RADHA Angelo on PCU. Informed patient and patient's daughter, Antonella, she will be moving to PCU
--- NOTE | 2023-07-27 15:37 | PN.HOSP_ITS ---
Reason for Visit Reason for Visit: Diagnoses Sepsis, unspecified organism (07/27/23) Hypokalemia (07/27/23) Acute cystitis without hematuria (07/27/23) Severe sepsis without septic shock (07/27/23) Subjective Subjective Patient presented overnight with fevers and chills, was found to have severe sepsis suspected secondary to an acute urinary tract infection. Patient seen at bedside this morning. Laying comfortably in bed, conversing normally, no acute distress. Patient states that she feels very tired this morning but does feel somewhat improved from overnight after receiving IV fluids and antibiotics. Denies any fevers or chills at this time. Denies any abdominal pain or discomfort. Denies any chest pain or shortness of breath. Does report mild low back pain, which is chronic for her. Patient tells me this morning that she is hoping to go home soon. No other acute concerns morning. Objective Data Objective Data Vital Signs: Vital Signs Temp Pulse Resp BP Pulse Ox O2 Del Method O2 Flow Rate 98.1 F 77 18 102/55 L 94 Room Air 2 07/27/23 13:00 07/27/23 13:00 07/27/23 13:00 07/27/23 13:00 07/27/23 14:25 07/27/23 14:25 07/27/23 08:02 Oxygen Flow Rate (L/min) 2 Oxygen Delivery Method Room Air Weight: 109.1 kg Body Mass Index (BMI) 40.0 Intake & Output: Intake and Output for Last 24 Hours 07/25/23 07/26/23 07/27/23 23:59 23:59 23:59 Intake Total 600 / 600 4704.57 / 4704.57 Balance 600 / 600 4704.57 / 4704.57 Lab / Micro Data 07/27/23 05:22 07/27/23 05:22 Labs: Laboratory Results - last 24 hr 07/26/23 20:43: WBC 6.7, RBC 4.20, Hgb 13.5, Hct 39.5, MCV 94.0, MCH 32.1 H, MCHC 34.2, RDW Std Deviation 46.2 H, RDW Coeff of Jessica 13.5, Plt Count 172, MPV 10.2, Immature Gran % (Auto) 0.300, Neut % (Auto) 92.7 H, Lymph % (Auto) 5.1 L, [place] % (Auto) 1.2, Eos % (Auto) 0.3, Baso % (Auto) 0.4, Absolute Neuts (auto) 6.2, Absolute Lymphs (auto) 0.34 L, Nucleated RBC % 0, Differential Comment SCANNED, PT 15.4 H, INR 1.2, APTT 30.7, Sodium 144, Potassium 2.9 L, Chloride 112 H, Carbon Dioxide 23.0, Anion Gap 9, BUN 16, Creatinine 1.34 H, Est GFR (MDRD) Af Amer 49 L, Est GFR (MDRD) Non-Af 41 L, BUN/Creatinine Ratio 11.9, Glucose 120 H, Lactic Acid 2.8 H*, Calcium 8.8, Total Bilirubin 0.80, AST 14 L, ALT 19, Alkaline Phosphatase 100, Total Protein 6.6, Albumin 3.3, Globulin 3.3, Albumin/Globulin Ratio 1.0 07/26/23 22:02: Urine Color Yellow, Urine Clarity Cloudy, Urine pH 5.0, Ur Specific [place] 1.015, Urine Protein 100 H, Urine Glucose (UA) Normal, Urine Ketones 5 H, Urine Occult Blood 50 H, Urine Nitrite Positive H, Urine Bilirubin 1 H, Urine Urobilinogen Normal, Ur Leukocyte Esterase 500 H, Urine RBC 0-5 SEEN, Urine WBC >100 SEEN, Ur Squamous Epith Cells 0-5 SEEN, Urine Bacteria 1+, Urine Mucus RARE 07/27/23 01:35: Lactic Acid 1.5 07/27/23 05:22: WBC 6.6, RBC 3.62 L, Hgb 11.5 L, Hct 35.5 L, MCV 98.1, MCH 31.8, MCHC 32.4 D, RDW Std Deviation 50.5 H, RDW Coeff of Jessica 14.0, Plt Count 150, MPV 10.2, Immature Gran % (Auto) 0.300, Neut % (Auto) 94.0 H, Lymph % (Auto) 3.8 L, [place] % (Auto) 0.5, Eos % (Auto) 0.8, Baso % (Auto) 0.6, Absolute Neuts (auto) 6.2, Absolute Lymphs (auto) 0.25 L, Nucleated RBC % 0, Differential Comment SCANNED, Sodium 144, Potassium 4.3, Chloride 116 H, Carbon Dioxide 19.0 L, Anion Gap 9, BUN 15, Creatinine 1.44 H, Estim Creat Clear Calc 29.91, Est GFR (MDRD) Af Amer 46 L, Est GFR (MDRD) Non-Af 38 L, BUN/Creatinine Ratio 10.4, Glucose 74, Calcium 7.7 L Micro: Microbiology 07/26/23 22:02 Urine, Clean Catch Urine Culture - Preliminary Presumptive E. coli 07/26/23 21:00 Nasal Secretion SARS-CoV-2 & FLU Antigen (Rapid) - Final Radiography Diagnostic Testing: Radiology Impression Chest X-Ray 07/26/23 21:10 IMPRESSION: Moderate hiatal hernia. Sternotomy. No acute disease. Electronically Signed: Vince Stanley MD at 21:51 EST Reading Location ID and State: [facility] / [place] Tel , Service support , Physical Exam Const alert, oriented x3 and no apparent distress Constitutional Narrative: Elderly female, obese, chronically ill-appearing, laying comfortably in bed, conversing normally, no acute distress. General Appearance: cooperative and comfortable HEENT normocephalic, head/scalp atraumatic, hearing grossly normal bilaterally, nasal mucous membranes and turbinates normal and moist oral mucous membranes Eyes PERRL, EOMs intact bilaterally and conjunctivae normal Neck full ROM, no lymphadenopathy and supple Lymph Lymphatic: no lymphadenopathy noted Chest inspection of chest normal Resp normal respiratory effort, normal air movement, no use of accessory muscles and clear to auscultation bilaterally Cardio regular rate, regular rhythm, no murmurs and peripheral pulses 2+ throughout GI normal to inspection, nondistended, normoactive bowel sounds, soft to palpation, non-tender and non-distended Back/Spine normal to inspection Extremity normal to inspection and no pedal edema Skin no rashes or lesions noted Psych mental status grossly normal Assessment & Plan Assessment/Plan (1) UTI (urinary tract infection): QUALIFIERS: Urinary tract infection type: acute cystitis Hematuria presence: without hematuria Qualified Code(s): N30.00 - Acute cystitis without hematuria PLAN: Plan Patient is a 78-year-old female who presented [facility] ED on 07/26/2023 with fevers/chills and an episode of urinary incontinence at home. 1. Severe sepsis secondary to UTI, improving Met sepsis criteria on admission with tachycardia up to heart rate 120, fever, lactic acidosis, high suspicion for urinary source of infection. UA showed positive nitrites, 500 leukocyte esterase, greater than 100 white blood cells, 1+ bacteria. Chest x-ray nonacute. Patient repleted with 30 cc/kg on admit, received approximately 4-5 L of fluid. Initiated on ceftriaxone on admission. Admitted to the ICU due to concern for developing septic shock. ? Continue ceftriaxone for now. Urine culture and blood cultures pending, will follow up. Monitor CBC and BMP daily. Kidney function notably at baseline with good urine output. Renal ultrasound completed on 07/27, read pending. Patient did require pressors, blood pressure stable. Okay for transfer to general medical floor on 07/27. 2. Hypokalemia, improved ? Potassium 2.9 on admit, improved with repletion. Monitor daily BMP. Chronic medical conditions: ? Paroxysmal A-fib: Sinus tachycardia on admission, rate improved with treatment as above. Continue home Eliquis, not on home rate controlling agent. Monitor telemetry. ? CAD s/p CABG, hypertension, hyperlipidemia: Continue home aspirin, statin. Not currently on any home blood pressure medications per medication list. ? Hypothyroidism: Continue home Synthroid. ? GERD: Continue home PPI. ? Anxiety/depression: Continue home sertraline. ? Chronic back pain: Home tramadol initially held, restarted on 07/27 with improvement in her medical condition. DVT prophylaxis: Eliquis CODE STATUS: DNR CCA, DO NOT INTUBATE Expected disposition: Home, 2 to 3 days Total clinical time spent by myself addressing the patient's medical issues, reviewing all the data, and collaborating with patient's care team: 35 minutes. Charges/Coding Visit Charges Inpatient E&M: 74200 Subs Hosp L2
[2023-07-27] MEDS: 0.9% Saline Lock 10 ML Syringe IV (22:09)
[2023-07-27] MEDS: 0.9% Normal Saline (250mL Bag) 250 ML 15 ML IV (22:09)
[2023-07-27] MEDS: MELATONIN 10 MG TABLET PO (22:10)
[2023-07-27] MEDS: Atorvastatin Calcium 20 MG Tablet PO (22:11)
[2023-07-27] MEDS: Sertraline 100 MG Tablet PO (22:11)
[2023-07-27] MEDS: Ceftriaxone 1 GM/50 ML BAG IV (22:14)
[2023-07-28 03:28] VITALS: BP 108/45; PULSE 77; RESP 18; TEMP 36.2; O2SAT 97
[2023-07-28] MEDS: Levothyroxine 100 MCG Tablet PO (05:48)
[2023-07-28] MEDS: busPIRone 5 MG Tablet PO ×3 (05:48→22:27)
[2023-07-28 06:16] LABS: Hematocrit 36.6 % (37-47); Hemoglobin 11.6 g/dL (12.0-15.0); Mean Corp Hgb Conc 31.7 g/dL (32-36); Mean Corpuscular Hgb 31.2 pg (27.0-32.0); Mean Corpuscular Volume 98.4 fL (81-99); Mean Platelet Vol. 9.8 fl (6.2-12.0); Platelet Count 137 K/mm3 (150-450); RBC Distribution Width CV 14.6 % (11.6-14.6); RBC Distribution Width SD 53.1 fl (35.1-43.9); Red Blood Count 3.72 M/mm3 (4.2-5.4); White Blood Count 13.5 K/mm3 (4.4-11.0)
[2023-07-28 06:46] LABS: Anion Gap 5 (5-15); BUN 19 mg/dL (7-18); BUN/Creat Ratio 14.8 RATIO (10-20); Calcium,Total 8.3 mg/dL (8.5-10.1); Chloride 115 mmol/L (98-107); Creatinine, Serum 1.28 mg/dL (0.55-1.02); EST Glomerular Filtration Rate 43 mL/min (>60); Est Glom Filt Rate - Afr Amer 52 mL/min (>60); Estimated Creatinine Clearance 33.65 ml/min; Glucose 94 mg/dL (74-106); Potassium 4.1 mmol/L (3.5-5.1); Sodium Level 142 mmol/L (136-145)
[2023-07-28 07:26] VITALS: O2SAT 95
[2023-07-28] MEDS: Aspirin E.C. 81 MG Tablet PO (07:37)
[2023-07-28] MEDS: Pantoprazole Sodium 40 MG Tablet PO ×2 (07:37→22:28)
[2023-07-28] MEDS: APIXABAN 5 MG TABLET PO ×2 (07:37→22:27)
[2023-07-28] MEDS: 0.9% Saline Lock 10 ML Syringe IV ×2 (07:38→22:31)
[2023-07-28 07:45] VITALS: BP 121/73; PULSE 86; RESP 16; TEMP 37.6; O2SAT 98
[2023-07-28] MEDS: Ferrous Sulfate 325 MG Tablet PO ×2 (11:41→16:50)
--- NOTE | 2023-07-28 12:13 | PN.HOSP_ITS ---
Reason for Visit Reason for Visit: Diagnoses Sepsis, unspecified organism (07/27/23) Hypokalemia (07/27/23) Acute cystitis without hematuria (07/27/23) Severe sepsis without septic shock (07/27/23) Subjective Subjective No acute events overnight. Patient seen at bedside this morning. Was sleeping on my arrival to the room. Laying comfortably in bed, conversing normally, no acute distress. Patient states she feels quite fatigued this morning but otherwise denies any acute pain or discomfort. Has had good urine output, no pain with urination. Denies any fevers or chills. No other acute concerns this morning. Objective Data Objective Data Vital Signs: Vital Signs Temp Pulse Resp BP Pulse Ox O2 Del Method O2 Flow Rate 99.7 F H 86 16 121/73 H 98 Room Air 2 07/28/23 07:45 07/28/23 07:45 07/28/23 07:45 07/28/23 07:45 07/28/23 07:45 07/28/23 10:00 07/27/23 08:02 Oxygen Flow Rate (L/min) 2 Oxygen Delivery Method Room Air Weight: 109.1 kg Body Mass Index (BMI) 40.0 Intake & Output: Intake and Output for Last 24 Hours 07/26/23 07/27/23 07/28/23 23:59 23:59 23:59 Intake Total 600 / 600 5055.82 / 5055.82 37 / 37 Output Total 300 / 300 Balance 600 / 600 4755.82 / 4755.82 37 / 37 Lab / Micro Data 07/28/23 06:08 07/28/23 06:08 Labs: Laboratory Results - last 24 hr 07/28/23 06:08: WBC 13.5 H, RBC 3.72 L, Hgb 11.6 L, Hct 36.6 L, MCV 98.4, MCH 31.2, MCHC 31.7 L, RDW Std Deviation 53.1 H, RDW Coeff of Jessica 14.6, Plt Count 137 L, MPV 9.8, Sodium 142, Potassium 4.1, Chloride 115 H, Carbon Dioxide 22.0, Anion Gap 5, BUN 19 H, Creatinine 1.28 H, Estim Creat Clear Calc 33.65, Est GFR (MDRD) Af Amer 52 L, Est GFR (MDRD) Non-Af 43 L, BUN/Creatinine Ratio 14.8, Glucose 94, Calcium 8.3 L Micro: Microbiology 07/26/23 22:02 Urine, Clean Catch Urine Culture - Final Presumptive E. coli 07/26/23 21:00 Nasal Secretion SARS-CoV-2 & FLU Antigen (Rapid) - Final Radiography Diagnostic Testing: Radiology Impression Renal Ultrasound 07/27/23 08:04 IMPRESSION: Normal ultrasound of the kidneys and urinary bladder. Electronically Signed: Roshan Escobedo MD at 18:22 EST , Physical Exam Const alert, oriented x3 and no apparent distress Constitutional Narrative: Elderly female, obese, chronically ill-appearing, laying comfortably in bed, conversing normally, no acute distress. General Appearance: cooperative and comfortable HEENT normocephalic, head/scalp atraumatic, hearing grossly normal bilaterally, nasal mucous membranes and turbinates normal and moist oral mucous membranes Eyes PERRL, EOMs intact bilaterally and conjunctivae normal Neck full ROM, no lymphadenopathy and supple Lymph Lymphatic: no lymphadenopathy noted Chest inspection of chest normal Resp normal respiratory effort, normal air movement, no use of accessory muscles and clear to auscultation bilaterally Cardio regular rate, regular rhythm, no murmurs and peripheral pulses 2+ throughout GI normal to inspection, nondistended, normoactive bowel sounds, soft to palpation, non-tender and non-distended Back/Spine normal to inspection Extremity normal to inspection and no pedal edema Skin no rashes or lesions noted Psych mental status grossly normal Assessment & Plan Assessment/Plan (1) UTI (urinary tract infection): QUALIFIERS: Urinary tract infection type: acute cystitis Hematuria presence: without hematuria Qualified Code(s): N30.00 - Acute cystitis without hematuria PLAN: Plan Patient is a 78-year-old female who presented [facility] ED on 07/26/2023 with fevers/chills and an episode of urinary incontinence at home. 1. Severe sepsis secondary to UTI, improving Met sepsis criteria on admission with tachycardia up to heart rate 120, fever, lactic acidosis, high suspicion for urinary source of infection. UA showed positive nitrites, 500 leukocyte esterase, greater than 100 white blood cells, 1+ bacteria. Chest x-ray nonacute. Patient repleted with 30 cc/kg on admit, received approximately 4-5 L of fluid. Initiated on ceftriaxone on admission. Admitted to the ICU due to concern for developing septic shock. Urine culture grew E. coli, sensitivities resulted on 07/28. Blood cultures pending. Renal/bladder ultrasound 07/27 with no acute findings. ? Continue ceftriaxone for now; if patient remains stable, will likely be okay for discharge home tomorrow and can transition to a p.o. antibiotic on discharge. Recommend 7 to 10-day course of antibiotics total. Follow-up blood cultures. 2. Hypokalemia, improved ? Potassium 2.9 on admit, improved with repletion. Monitor daily BMP. Chronic medical conditions: ? Paroxysmal A-fib: Sinus tachycardia on admission, rate improved with treatment as above. Continue home Eliquis, not on home rate controlling agent. Monitor telemetry. ? CAD s/p CABG, hypertension, hyperlipidemia: Continue home aspirin, statin. Not currently on any home blood pressure medications per medication list. ? Hypothyroidism: Continue home Synthroid. ? GERD: Continue home PPI. ? Anxiety/depression: Continue home sertraline. ? Chronic back pain: Home tramadol initially held, restarted on 07/27 with improvement in her medical condition. DVT prophylaxis: Eliquis CODE STATUS: DNR CCA, DO NOT INTUBATE Expected disposition: Home, 1 to 2 days Total clinical time spent by myself addressing the patient's medical issues, reviewing all the data, and collaborating with patient's care team: 35 minutes. Charges/Coding Visit Charges Inpatient E&M: 21946 Subs Hosp L2
[2023-07-28 13:45] VITALS: BP 125/65; PULSE 78; RESP 15; TEMP 37.6; O2SAT 98
[2023-07-28 19:37] VITALS: BP 115/71; PULSE 83; RESP 18; TEMP 36.7; O2SAT 95
[2023-07-28 22:24] VITALS: BP 148/72; PULSE 74; RESP 18; TEMP 36.9; O2SAT 95
[2023-07-28] MEDS: Sertraline 100 MG Tablet PO (22:27)
[2023-07-28] MEDS: Atorvastatin Calcium 20 MG Tablet PO (22:27)
[2023-07-28] MEDS: MELATONIN 10 MG TABLET PO (22:27)
[2023-07-28] MEDS: Ceftriaxone 1 GM/50 ML BAG IV (22:29)
[2023-07-29 03:26] VITALS: BP 142/67; PULSE 71; RESP 18; TEMP 36.2; O2SAT 96
[2023-07-29] MEDS: Levothyroxine 100 MCG Tablet PO (05:29)
[2023-07-29] MEDS: busPIRone 5 MG Tablet PO (05:29)
[2023-07-29 06:08] LABS: Hematocrit 35.9 % (37-47); Hemoglobin 11.6 g/dL (12.0-15.0); Mean Corp Hgb Conc 32.3 g/dL (32-36); Mean Corpuscular Hgb 31.4 pg (27.0-32.0); Mean Corpuscular Volume 97.3 fL (81-99); Mean Platelet Vol. 10.8 fl (6.2-12.0); Platelet Count 149 K/mm3 (150-450); RBC Distribution Width CV 14.3 % (11.6-14.6); RBC Distribution Width SD 51.3 fl (35.1-43.9); Red Blood Count 3.69 M/mm3 (4.2-5.4); White Blood Count 9.4 K/mm3 (4.4-11.0)
[2023-07-29 06:59] LABS: Anion Gap 5 (5-15); BUN 14 mg/dL (7-18); BUN/Creat Ratio 13.6 RATIO (10-20); Calcium,Total 8.5 mg/dL (8.5-10.1); Chloride 113 mmol/L (98-107); Creatinine, Serum 1.03 mg/dL (0.55-1.02); EST Glomerular Filtration Rate 55 mL/min (>60); Est Glom Filt Rate - Afr Amer 67 mL/min (>60); Estimated Creatinine Clearance 41.81 ml/min; Glucose 99 mg/dL (74-106); Sodium Level 142 mmol/L (136-145)
[2023-07-29 08:00] VITALS: BP 138/74; PULSE 62; RESP 12; TEMP 36.9; O2SAT 99
--- NOTE | 2023-07-29 08:01 | PCM.DC ---
Discharge Instructions Diet Discharge Diet: No restrictions Activity Discharge Activity: Return to Normal Activity Weight Bearing Status: Weight bearing as tolerated Dressing / Incision Call your doctor if you observe: Fever of 101 or Higher, Coldness, Increased Pain, Numbness or Tingling, Change in Color, Inability to urinate, Inability to have a bowel movement, Using more than 1 pad per hour, Shortness of breath, Dizziness, Fainting spells, Swelling in the ankles, Chest pain, Prolonged hiccupping, Increased palpitations (irregular heartbeat) and Calf discomfort Follow Up Care When: IN 2 WEEKS Test Results: Test results from this visit will be discussed in further detail at your follow-up appointment, if applicable. Discharge Plan Admission Admit Date/Time: 07/27/23 00:03 Primary Reason for Your Visit: Sepsis due to UTI. Attending Provider: Suman Guerra Primary Care Provider: Bal Benz Consulting Providers: Eliezer Leon; Lokesh Sanchez Discharge Orders/Prescriptions Prescriptions: New ciprofloxacin HCl 500 mg tablet 500 mg PO BID 5 Days Qty: 10 0RF Continued pantoprazole 40 mg tablet,delayed release (DR/EC) 40 mg PO BID ferrous sulfate 325 mg (65 mg iron) tablet 325 mg PO BID budesonide 3 MG capsule,delayed,extend.release 9 mg PO DAILY loperamide [Imodium A-D] 2 mg Tablet 2 mg PO Q4H PRN (Reason: LOOSE STOOLS) Rx Instructions: administer after each loose stool until symptoms controlled; do not exceed 8 mg per 24 hrs buspirone 5 mg tablet 5 mg PO TID levothyroxine 100 mcg tablet 100 mcg PO DAILY tramadol 50 mg tablet 50 mg PO Q6H PRN (Reason: PAIN) Patient Comments: FILLED ON 07/11/[address] [facility] A 7 DAY SUPPLY. Rx Instructions: TAKE ONE TABLET BY MOUTH EVERY 6 HOURS NEEDED FOR PAIN FOR UP TO 7 DAYS. sertraline 100 mg tablet 100 mg PO QHS acetaminophen [Tylenol Arthritis Pain] 650 mg tablet extended release 650 mg PO Q12H PRN (Reason: ARTHRITIS) melatonin 10 mg tablet 10 mg PO QHS apixaban 5 mg tablet 5 mg PO BID aspirin 81 mg tablet,delayed release (DR/EC) 81 mg PO DAILY famotidine 20 mg tablet 20 mg PO QHS PRN (Reason: ACID REFLUX ) atorvastatin 20 mg tablet 20 mg PO QHS Qty: 90 3RF Referrals / Follow Up: Bal Benz MD [Primary Care Provider] - 08/02/23 2:20 pm Disposition Disposition (needs filled in before D/C Order can be placed): Home, Self Care
[2023-07-29] MEDS: APIXABAN 5 MG TABLET PO (09:35)
[2023-07-29] MEDS: Pantoprazole Sodium 40 MG Tablet PO (09:35)
[2023-07-29] MEDS: Aspirin E.C. 81 MG Tablet PO (09:35)
--- NOTE | 2023-07-29 10:42 | CASEMGMT ---
Patient has a Healthcare Power of Barrel Assembler Helper on file at [facility]. Patient's daughter Antonella is patient's Healthcare Power of Barrel Assembler Helper. Patient does not have a Healthcare Living Will. Alla GASPAR
--- NOTE | 2023-07-29 10:47 | PCM.DC.SUM ---
Providers Date of Admission: 07/27/23 Date of Discharge: 07/29/23 Primary Care Physician: Dr. Bal Benz MD Reason For Visit: SEPSIS SECONDARY TO UTI Diagnosis Discharge Diagnosis (1) UTI (urinary tract infection): Status: Acute Code(s): N39.0 - Urinary tract infection, site not specified Qualifiers: Hematuria presence: without hematuria Urinary tract infection type: acute cystitis Qualified Code(s): N30.00 - Acute cystitis without hematuria Plan Patient is a 78-year-old female who presented [facility] ED on 07/26/2023 with fevers/chills and an episode of urinary incontinence at home. 1. Sepsis secondary to UTI: Resolved. The patient presented with sepsis with clinical indicators of tachycardia, fever due to UTI with acute sepsis-related organ dysfunction as evidenced by lactic acidosis UA showed positive nitrites, 500 leukocyte esterase, greater than 100 white blood cells, 1+ bacteria. Chest x-ray nonacute. Patient repleted with 30 cc/kg on admit, received approximately 4-5 L of fluid. Initiated on ceftriaxone on admission. Admitted to the ICU due to concern for developing septic shock. Urine culture grew E. coli, sensitivities resulted on 07/28. Blood cultures pending. Renal/bladder ultrasound 07/27 with no acute findings. Patient had IV ceftriaxone while here. Discharged on ciprofloxacin 5 more days to complete total of 8 days of antibiotics. 2. Hypokalemia, improved and resolved. Repeat potassium 4.0. ? Potassium 2.9 on admit Chronic medical conditions: ? Paroxysmal A-fib: Sinus tachycardia on admission, rate improved with treatment as above. Continue home Eliquis, not on home rate controlling agent. Monitor telemetry. ? CAD s/p CABG, hypertension, hyperlipidemia: Continue home aspirin, statin. Not currently on any home blood pressure medications per medication list. ? Hypothyroidism: Continue home Synthroid. ? GERD: Continue home PPI. ? Anxiety/depression: Continue home sertraline. ? Chronic back pain: Home tramadol initially held, restarted on 07/27 with improvement in her medical condition. DVT prophylaxis: Eliquis CODE STATUS: DNR CCA, DO NOT INTUBATE Discharge medication reconciliation done. Discharge follow-up instructions completed. Discharge process discussed with the patient and all questions were answered to patient's satisfaction. Follow with PCP in 1 to 2 weeks Total time spent, exact 35 minutes on discharge meds reconciliation, examination, coordination of care with nurses and ancillary staff, review of imaging and blood test and discussion with the patient on follow-up instructions. Medications at Discharge Home Medications budesonide 3 mg capsule,delayed,extended release 9 mg PO DAILY ASTHMA 06/08/20 ferrous sulfate 325 mg (65 mg iron) tablet 325 mg PO BID SUPPLEMENT 05/11/22 pantoprazole 40 mg tablet,delayed release 40 mg PO BID ACID REFLUX 05/11/22 loperamide 2 mg tablet (Imodium A-D) 2 mg PO Q4H PRN LOOSE STOOLS 07/06/22 atorvastatin 20 mg tablet 20 mg PO QHS CHOLESTEROL #90 tabs 04/09/23 acetaminophen 650 mg tablet,extended release (Tylenol Arthritis Pain) 650 mg PO Q12H PRN ARTHRITIS 07/16/23 apixaban 5 mg tablet 5 mg PO BID BLOOD THINNER 07/16/23 aspirin 81 mg tablet,delayed release 81 mg PO DAILY BLOOD THINNER 07/16/23 buspirone 5 mg tablet 5 mg PO TID ANXIETY 07/16/23 famotidine 20 mg tablet 20 mg PO QHS PRN ACID REFLUX 07/16/23 levothyroxine 100 mcg tablet 100 mcg PO DAILY THYROID 07/16/23 melatonin 10 mg tablet 10 mg PO QHS SLEEP 07/16/23 sertraline 100 mg tablet 100 mg PO QHS DEPRESSION 07/16/23 tramadol 50 mg tablet 50 mg PO Q6H PRN PAIN 07/16/23 ciprofloxacin HCl 500 mg tablet 500 mg PO BID 5 days #10 tabs 07/29/23 Physical Exam Narrative Seen and examined on the day of discharge. Discharge planning discussed with the patient's daughter near the bedside. General: Alert, Oriented x3, Cooperative HEENT: Atraumatic, PERRLA, EOMI, Normocephalic Oral: Oral mucosa moist. No Gingival or Mucosal Lesions/ Ulcerations Neck: Supple, No JVD, Negative Carotid Bruits Lungs: Air entry diminished in bilateral lung bases. No crepitation/rhonchi Cardiovascular: Regular rate, Regular Rhythm, Normal S1, Normal S2, ejection systolic murmur present. Abdomen: Bowel Sounds Present, Soft, Non Tender, Non-Distended : No renal angle tenderness. No suprapubic tenderness. Extremities: No significant edema, Capillary Refill Less than 3 Seconds Skin: Right leg superficial ulceration from dog scratching, superficial ulcer healing. More than 10 days ago. Musculoskeletal: ROM restricted. Muscle strength 4+/5 at major joints. On walker. No acute tenderness to Palpation of Joints or Extremities Neurological: Cranial nerves II-XII grossly intact, DTR 2+/4. No acute focal neurological deficit. Psych/Mental Status: Normal Affect, Appropriate. Weight / BMI Weight Weight: 240 lb 8.389 oz Body Mass Index (BMI) 40.0 ABG / Lab / Microbiology Data 07/29/23 04:56 07/29/23 04:56 Laboratory: Laboratory Results - last 24 hr 07/29/23 04:56: WBC 9.4, RBC 3.69 L, Hgb 11.6 L, Hct 35.9 L, MCV 97.3, MCH 31.4, MCHC 32.3, RDW Std Deviation 51.3 H, RDW Coeff of Jessica 14.3, Plt Count 149 L, MPV 10.8, Sodium 142, Potassium 4.0, Chloride 113 H, Carbon Dioxide 24.0, Anion Gap 5, BUN 14, Creatinine 1.03 H, Estim Creat Clear Calc 41.81, Est GFR (MDRD) Af Amer 67, Est GFR (MDRD) Non-Af 55 L, BUN/Creatinine Ratio 13.6, Glucose 99, Calcium 8.5 Microbiology: Microbiology 07/26/23 22:02 Urine, Clean Catch Urine Culture - Final Presumptive E. coli 07/26/23 21:00 Nasal Secretion SARS-CoV-2 & FLU Antigen (Rapid) - Final D/C Instructions Discharge Diet: No restrictions Weight Bearing Status: Weight bearing as tolerated Call your doctor if you observe: Fever of 101 or Higher, Coldness, Increased Pain, Numbness or Tingling, Change in Color, Inability to urinate, Inability to have a bowel movement, Using more than 1 pad per hour, Shortness of breath, Dizziness, Fainting spells, Swelling in the ankles, Chest pain, Prolonged hiccupping, Increased palpitations (irregular heartbeat) and Calf discomfort When: IN 2 WEEKS Meaningful Use Info Meaningful Use Diagnoses (Choose all that apply): None applicable Discharge Plan Admission Admit Date/Time: 07/27/23 00:03 Primary Reason for Your Visit: Sepsis due to UTI. Attending Provider: Suman Guerra Primary Care Provider: Bal Benz Consulting Providers: Eliezer Leon; Lokesh Sanchez Discharge Orders/Prescriptions Prescriptions: New ciprofloxacin HCl 500 mg tablet 500 mg PO BID 5 Days Qty: 10 0RF Continued pantoprazole 40 mg tablet,delayed release (DR/EC) 40 mg PO BID ferrous sulfate 325 mg (65 mg iron) tablet 325 mg PO BID budesonide 3 MG capsule,delayed,extend.release 9 mg PO DAILY loperamide [Imodium A-D] 2 mg Tablet 2 mg PO Q4H PRN (Reason: LOOSE STOOLS) Rx Instructions: administer after each loose stool until symptoms controlled; do not exceed 8 mg per 24 hrs buspirone 5 mg tablet 5 mg PO TID levothyroxine 100 mcg tablet 100 mcg PO DAILY tramadol 50 mg tablet 50 mg PO Q6H PRN (Reason: PAIN) Patient Comments: FILLED ON 07/11/23 AT [facility] A 7 DAY SUPPLY. Rx Instructions: TAKE ONE TABLET BY MOUTH EVERY 6 HOURS NEEDED FOR PAIN FOR UP TO 7 DAYS. sertraline 100 mg tablet 100 mg PO QHS acetaminophen [Tylenol Arthritis Pain] 650 mg tablet extended release 650 mg PO Q12H PRN (Reason: ARTHRITIS) melatonin 10 mg tablet 10 mg PO QHS apixaban 5 mg tablet 5 mg PO BID aspirin 81 mg tablet,delayed release (DR/EC) 81 mg PO DAILY famotidine 20 mg tablet 20 mg PO QHS PRN (Reason: ACID REFLUX ) atorvastatin 20 mg tablet 20 mg PO QHS Qty: 90 3RF Referrals / Follow Up: Bal Benz MD [Primary Care Provider] - 08/02/23 2:20 pm Disposition Disposition (needs filled in before D/C Order can be placed): Home, Self Care Charges/Coding Visit Charges Inpatient E&M: 29198 Disch Hosp >30min
[2023-07-29 11:27] VITALS: BP 149/84; PULSE 69; RESP 16; TEMP 36.8; O2SAT 97
--- NOTE | 2023-07-29 11:31 | PHA.DC_ITS ---
Pharmacy [facility] Pharmacy Service has performed discharge medication reconciliation and counseling for this patient. The patient's discharge medication list was reviewed for discrepancies and discrepancies were resolved. The patient was counseled on the following discharge medications and changes in medications for homegoing were reviewed. The Reason for Use, instructions for use, and potential side effects were reviewed for all new medications. The patient's questions regarding all of their medications were answered. 1. Ciprofloxacin 500 mg PO BID x 5 days The patient demonstrated some understanding but would benefit from further education and reinforcement. Medications at Discharge Home Medications budesonide 3 mg capsule,delayed,extended release 9 mg PO DAILY ASTHMA 06/08/20 ferrous sulfate 325 mg (65 mg iron) tablet 325 mg PO BID SUPPLEMENT 05/11/22 pantoprazole 40 mg tablet,delayed release 40 mg PO BID ACID REFLUX 05/11/22 loperamide 2 mg tablet (Imodium A-D) 2 mg PO Q4H PRN LOOSE STOOLS 07/06/22 atorvastatin 20 mg tablet 20 mg PO QHS CHOLESTEROL #90 tabs 04/09/23 acetaminophen 650 mg tablet,extended release (Tylenol Arthritis Pain) 650 mg PO Q12H PRN ARTHRITIS 07/16/23 apixaban 5 mg tablet 5 mg PO BID BLOOD THINNER 07/16/23 aspirin 81 mg tablet,delayed release 81 mg PO DAILY BLOOD THINNER 07/16/23 buspirone 5 mg tablet 5 mg PO TID ANXIETY 07/16/23 famotidine 20 mg tablet 20 mg PO QHS PRN ACID REFLUX 07/16/23 levothyroxine 100 mcg tablet 100 mcg PO DAILY THYROID 07/16/23 melatonin 10 mg tablet 10 mg PO QHS SLEEP 07/16/23 sertraline 100 mg tablet 100 mg PO QHS DEPRESSION 07/16/23 tramadol 50 mg tablet 50 mg PO Q6H PRN PAIN 07/16/23 ciprofloxacin HCl 500 mg tablet 500 mg PO BID 5 days #10 tabs 07/29/23
[2023-07-29] MEDS: Ferrous Sulfate 325 MG Tablet PO (12:17)
--- NOTE | 2023-07-29 12:30 | CASEMGMT ---
RN SONAL reviewed progress with therapy. No therapy recommended at discharge. RN CM in to discuss needs at discharge with patient and daughter. Daughter states that she has made arrangements for family to stay with patient for the next few days. Daughter states she will be reaching out to CM at [facility]. Patient and daughter denied further questions or concerns.
== END 2023-07-29 13:10 | disposition home or self-care (01) | DRG 872 ==
LOC: ED 23:53 → ICU 07-27 00:24 → PCU 07-27 15:52
PROVIDERS: Hospitalist; Admitting Provider Hospitalist; Emergency Provider Emergency Medicine; PCP Family Medicine; Visit Provider Internal Medicine
DX: A41.9 Sepsis, unspecified organism (principal); L97.911 Non-pressure chronic ulcer of unspecified part of right lower leg limited to breakdown of skin; N30.00 Acute cystitis without hematuria; F02.80 Dementia in other diseases classified elsewhere, unspecified severity, without behavioral disturbance, psychotic disturbance, mood disturbance, and anxiety; I48.0 Paroxysmal atrial fibrillation; E03.9 Hypothyroidism, unspecified; E86.0 Dehydration; N18.31 Chronic kidney disease, stage 3a; G30.9 Alzheimer's disease, unspecified; R65.20 Severe sepsis without septic shock; F32.A Depression, unspecified; I12.9 Hypertensive chronic kidney disease with stage 1 through stage 4 chronic kidney disease, or unspecified chronic kidney disease; E87.6 Hypokalemia; K21.9 Gastro-esophageal reflux disease without esophagitis; I25.10 Atherosclerotic heart disease of native coronary artery without angina pectoris; E78.5 Hyperlipidemia, unspecified; M54.50 Low back pain, unspecified; G89.29 Other chronic pain; Z66 Do not resuscitate; Z11.52 Encounter for screening for COVID-19; Z79.82 Long term (current) use of aspirin; Z79.01 Long term (current) use of anticoagulants; Z79.899 Other long term (current) drug therapy; Z79.890 Hormone replacement therapy; Z95.1 Presence of aortocoronary bypass graft
CPT/HCPCS: 36415; 71045; 76770; 80048; 80053; 81001; 83605; 85025; 85027; 85610; 85730; 87040; 87086; 87088; 87186; 87428; 93005; 94762; 97161; 97166; 97802; 99284; J7030; J7040; J7050; A4216; J2405

== ENCOUNTER 2023-10-01 17:55 | Emergency (ER) | payer MEDICARE, MEDICAID, SELFPAY ==
[2023-10-01 17:56] VITALS: BP 174/144; PULSE 78; RESP 14; TEMP 36.1; O2SAT 99; BMI 39.0
--- NOTE | 2023-10-01 18:22 | CT_ITS ---
STUDY: CT BRAIN WITHOUT CONTRAST REASON FOR EXAM: Female, 78 years old. Headache after trauma, patient on anticoagulation RADIATION DOSAGE (If Supplied By Facility): CTDIvol = ( 47.06 ) mGy, DLP = ( 872.68 ) mGycm TECHNIQUE: Transaxial CT imaging of the brain was performed without administration of intravenous contrast material. Individualized dose optimization techniques were used for this CT. COMPARISON: 07/16/2023 FINDINGS: Normal soft tissue structures. Normal calvarium. There is mild cerebral atrophy with widening of the extra-axial spaces and ventricular dilatation. There are areas of decreased attenuation within the white matter tracts of the supratentorial brain, consistent with microvascular disease changes. Normal basal ganglia and thalami. Normal brainstem. Normal cerebellum. There is no intracranial hemorrhage. There are no findings of an acute ischemic infarction. Normal visualized paranasal sinuses. CT/Brain/Head without Contrast IMPRESSION: Chronic involutional changes of the brain. No acute hemorrhage. No interval change Electronically Signed: Mode Prabhakar MD at 19:33 EST ,
--- NOTE | 2023-10-01 18:26 | ED.VIS.FALL ---
HPI HPI - Fall History of Present Illness Chief Complaint: Fall Narrative Narrative: 78-year-old female multiple medical problems, has a history of syncopal episodes, presents with her daughter because of syncopal episode that she had 2 days ago. Patient's daughter states that she found out from her mother that 2 days ago she had another episode where she blacked out . She fell and injured her left forearm and left lower extremity with skin tears. Patient states that she had called her other daughter to help her dress her wounds. Her daughter who is with her today is concerned because patient continues to complain of a headache, and she takes Eliquis for atrial fibrillation and may have hit her head on Saturday. She has been generally weak, but patient denies any nausea or vomiting, no other symptoms. PFSH [facility] Medical History Acute gastric ulcer Alzheimer's dementia Anemia Anxiety Arthritis Atherosclerosis of coronary artery of [place] heart without angina pectoris Cardiology follow-up encounter Chronic anticoagulation Chronic cough Coagulopathy Difficulty swallowing Easy bruising Essential (primary) hypertension Excessive bleeding Fatty liver Gastric reflux GERD (gastroesophageal reflux disease) Hiatal hernia History of atrial fibrillation History of echocardiogram History of edema History of heart attack History of Holter monitoring History of IBS History of renal disease History of stress test HLD (hyperlipidemia) Hypertension Hypothyroidism Iron deficiency Low iron Non-smoker Obesity (BMI 30-39.9) Open wound Orthostatic hypotension Paroxysmal A-fib Paroxysmal atrial fibrillation Pseudoseizures Schatzki's ring Shortness of breath on exertion Stage 3b chronic kidney disease (CKD) Syncope Syncope TIA (transient ischemic attack) Wears dentures Wears glasses Home Medications budesonide 3 mg capsule,delayed,extended release 9 mg PO DAILY ASTHMA 06/08/20 [History Last Taken 07/16/23] ferrous sulfate 325 mg (65 mg iron) tablet 325 mg PO BID SUPPLEMENT 05/11/22 [History Last Taken 07/16/23] pantoprazole 40 mg tablet,delayed release 40 mg PO BID ACID REFLUX 05/11/22 [History Last Taken 07/16/23] loperamide 2 mg tablet (Imodium A-D) 2 mg PO Q4H PRN LOOSE STOOLS 07/06/22 [History Last Taken Unknown] atorvastatin 20 mg tablet 20 mg PO QHS CHOLESTEROL #90 tabs 04/09/23 [Rx Last Taken 07/15/23] acetaminophen 650 mg tablet,extended release (Tylenol Arthritis Pain) 650 mg PO Q12H PRN ARTHRITIS 07/16/23 [History Last Taken Unknown] apixaban 5 mg tablet 5 mg PO BID BLOOD THINNER 07/16/23 [History Last Taken 07/16/23] aspirin 81 mg tablet,delayed release 81 mg PO DAILY BLOOD THINNER 07/16/23 [History Last Taken 07/16/23] buspirone 5 mg tablet 5 mg PO TID ANXIETY 07/16/23 [History Last Taken 07/16/23] famotidine 20 mg tablet 20 mg PO QHS PRN ACID REFLUX 07/16/23 [History Last Taken Unknown] levothyroxine 100 mcg tablet 100 mcg PO DAILY THYROID 07/16/23 [History Last Taken 07/16/23] melatonin 10 mg tablet 10 mg PO QHS SLEEP 07/16/23 [History Last Taken 07/15/23] sertraline 100 mg tablet 100 mg PO QHS DEPRESSION 07/16/23 [History Last Taken 07/15/23] tramadol 50 mg tablet 50 mg PO Q6H PRN PAIN 07/16/23 [History Last Taken 07/16/23] ciprofloxacin HCl 500 mg tablet 500 mg PO BID 5 days #10 tabs 07/29/23 [Rx Last Taken Unknown] Allergy/AdvReac Type Severity Reaction Status Date / Time procaine [From Novocain] AdvReac Other Verified 10/01/23 17:56 Family History Mother Heart disease Father Heart disease Alcoholism Surgical History H/O cardiac radiofrequency ablation H/O coronary artery bypass surgery (01/29/08) History of colonoscopy History of esophagogastroduodenoscopy (EGD) History of left heart catheterization (01/12/19) Status post ablation of atrial fibrillation Social History household members: none Smoking Status: Never smoker alcohol intake: never substance use type: does not use caffeine: Yes Type: coffee Number of servings: 6 ROS ROS ED ROS Narrative Constitutional: No fever, no chills. Weakness. HEENT: No sore throat. No neck pain. No loss of vision. No rhinorrhea. Cardiovascular: No chest pain. No palpitations. No pedal edema. Respiratory: No cough, no shortness of breath. Abdominal: No abdominal pain. No nausea. No vomiting. Genitourinary: No dysuria. No hematuria. Musculoskeletal: No myalgias. No arthralgias. Neurologic: Positive headaches. No dizziness. No lightheadedness. Skin: No rash. No change in color. Skin tears to left upper extremity and left lower extremity. Psychiatric: No depression. No anxiety. EXAM Physical Exam Const Vital Signs: 10/01/23 17:56 10/01/23 18:09 10/01/23 18:10 Temperature 96.9 F L Temperature Source Temporal Pulse Rate 78 Respiratory Rate 14 Respiratory Effort Normal Normal Respiratory Depth Normal Respiratory Pattern Normal Normal Blood Pressure 174/144 H Blood Pressure Mean 154 Pulse Ox 99 Oxygen Delivery Method Room Air Room Air MDM MDM MDM Narrative Medical decision making narrative: I reviewed her laboratory work. EKG was obtained and it demonstrates on my individual interpretation normal sinus rhythm at 70 bpm without ectopy or acute ST changes. No STEMI. I am unsure as to the cause of her syncope, but this was 2 days ago. Additionally, I have lower concern for intracranial hemorrhage as her fall was 2 days ago and she has normal neurological examination. In review of her blood work she has normal white count of 8.0, hemoglobin normal at 12.2, platelet count normal at 200. Sodium normal at 141, potassium normal at 4.1, anion gap low at 3. Creatinine 1.25 with a BUN of 14. Glucose appropriately elevated at 113. Urinalysis obtained and reviewed and is negative for infection. I reviewed the CT report of the CT of the brain and there is no acute intracranial hemorrhage or skull fracture. Chest x-ray in 1 view interpreted by myself shows no evidence of pneumonia or pneumothorax. Additionally, she complained of hip pain bilaterally, but has been ambulating at home. I have low suspicion for hip fracture based on her examination. She was administered morphine for analgesia and x-rays of the pelvis and bilateral hips was obtained and interpreted by myself which shows no evidence of an acute fracture. I reviewed the radiology report which confirms my independent interpretation. At this point in time, her skin tears were redressed. I feel she be discharged to follow-up with her primary care provider. Her daughter is agreeable to the plan. I do not feel that she needs CT imaging of her bilateral hips that she has been ambulating on them and there is no evidence of dislocation. Disposition is discharged home in stable condition. History & Record Review Discussion w/independent historian: Patient and Family (Daughter) Additional record(s) reviewed:: Prior ED visit and Prior labs Lab Data Attestation: I reviewed the patient's lab results. Labs: Laboratory Results - last 24 hr 10/01/23 10/01/23 18:45 19:30 WBC 8.0 RBC 4.01 L Hgb 12.2 Hct 38.4 MCV 95.8 MCH 30.4 MCHC 31.8 L RDW Std Deviation 43.3 RDW Coeff of Jessica 12.2 Plt Count 200 MPV 9.8 Immature Gran % (Auto) 0.500 Neut % (Auto) 75.5 H Lymph % (Auto) 14.2 L Rankin % (Auto) 8.8 Eos % (Auto) 0.6 Baso % (Auto) 0.4 Absolute Neuts (auto) 6.0 Absolute Lymphs (auto) 1.13 Nucleated RBC % 0 Sodium 141 Potassium 4.1 Chloride 108 H Carbon Dioxide 30.0 Anion Gap 3 L BUN 14 Creatinine 1.25 H Estim Creat Clear Calc 46.41 Est GFR (MDRD) Af Amer 54 L Est GFR (MDRD) Non-Af 44 L BUN/Creatinine Ratio 11.2 Glucose 113 H Calcium 9.4 Total Bilirubin 0.40 AST 19 ALT 25 Alkaline Phosphatase 103 Total Protein 6.6 Albumin 3.3 Globulin 3.3 Albumin/Globulin Ratio 1.0 Urine Color Yellow Urine Clarity Sl. Cloudy Urine pH 7.0 Ur Specific [place] 1.010 Urine Protein Negative Urine Glucose (UA) Normal Urine Ketones Negative Urine Occult Blood Negative Urine Nitrite Negative Urine Bilirubin Negative Urine Urobilinogen Normal Ur Leukocyte Esterase Negative Urine RBC 0 SEEN Urine WBC 0-5 SEEN Ur Squamous Epith Cells 0-5 SEEN Urine Bacteria 0 SEEN Urine Mucus 0 SEEN Radiography Diagnostic Testing: Clinical Impression(s) from Imaging Studies Brain CT 10/01/23 18:22 IMPRESSION: Chronic involutional changes of the brain. No acute hemorrhage. No interval change Electronically Signed: Mode Prabhakar MD at 19:33 EST , Chest X-Ray 10/01/23 19:00 IMPRESSION: Chronic interstitial changes, no superimposed acute pulmonary process Electronically Signed: Mode Prabhakar MD at 19:27 EST Reading Location ID and State: [facility] / [place] , Service support , Hip/Pelvis X-Ray 10/01/23 19:00 IMPRESSION: Age consistent bilateral hip and SI joint arthrosis. No demonstrated fracture or suspicious osseous lesion. However, hip and pelvic fractures in patients of this age can be subtle, if there is strong clinical suspicion of a fracture, recommend further evaluation with CT Electronically Signed: Moed Prabhakar MD at 19:28 EST , Discharge Plan Triage Chief Complaint: Fall Other Complaint: Syncope ED Provider: Eliecer Head Dx/Rx/DC Orders Clinical Impression: Closed head injury, Syncope, Skin tear, Hip pain Instructions: ED Fall with Uncertain Cause, ED Head Injury (Adult), ED Skin Tear (Skin Avulsion), ED Fainting, Uncertain Cause Prescriptions: No Action pantoprazole 40 mg tablet,delayed release (DR/EC) 40 mg PO BID ferrous sulfate 325 mg (65 mg iron) tablet 325 mg PO BID budesonide 3 MG capsule,delayed,extend.release 9 mg PO DAILY loperamide [Imodium A-D] 2 mg Tablet 2 mg PO Q4H PRN (Reason: LOOSE STOOLS) Rx Instructions: administer after each loose stool until symptoms controlled; do not exceed 8 mg per 24 hrs buspirone 5 mg tablet 5 mg PO TID levothyroxine 100 mcg tablet 100 mcg PO DAILY tramadol 50 mg tablet 50 mg PO Q6H PRN (Reason: PAIN) Patient Comments: FILLED ON 07/11/23 AT [facility] A 7 DAY SUPPLY. Rx Instructions: TAKE ONE TABLET BY MOUTH EVERY 6 HOURS NEEDED FOR PAIN FOR UP TO 7 DAYS. sertraline 100 mg tablet 100 mg PO QHS acetaminophen [Tylenol Arthritis Pain] 650 mg tablet extended release 650 mg PO Q12H PRN (Reason: ARTHRITIS) melatonin 10 mg tablet 10 mg PO QHS apixaban 5 mg tablet 5 mg PO BID aspirin 81 mg tablet,delayed release (DR/EC) 81 mg PO DAILY famotidine 20 mg tablet 20 mg PO QHS PRN (Reason: ACID REFLUX ) ciprofloxacin HCl 500 mg tablet 500 mg PO BID 5 Days Qty: 10 0RF atorvastatin 20 mg tablet 20 mg PO QHS Qty: 90 3RF Primary Care Provider: Bal Benz Referrals: Bal Benz MD [Primary Care Provider] - 3-5 Days if not improving Disposition Disposition: Home, Self Care
[2023-10-01] MEDS: Morphine 4 MG/ML Syringe IV (18:40)
[2023-10-01 18:55] LABS: Absolute Lymphocyte Count 1.13 X10^3/uL (0.83-4.51); Basophil# 0.03 X10^3/uL; Basophil% 0.4 % (0-1); Eosinophil# 0.05 X10^3/uL; Eosinophils% 0.6 % (0-5); Hematocrit 38.4 % (37-47); Hemoglobin 12.2 g/dL (12.0-15.0); Lymphocyte # 1.13 X10^3/ul (0.83-4.51); Lymphocyte % 14.2 % (19-41); Mean Corp Hgb Conc 31.8 g/dL (32-36); Mean Corpuscular Hgb 30.4 pg (27.0-32.0); Mean Corpuscular Volume 95.8 fL (81-99); Mean Platelet Vol. 9.8 fl (6.2-12.0); Monocyte% 8.8 % (0-10); NRBC Flagged by Analyzer 0 % (0-5); Neutrophil % 75.5 % (47-70); Platelet Count 200 K/mm3 (150-450); RBC Distribution Width CV 12.2 % (11.6-14.6); RBC Distribution Width SD 43.3 fl (35.1-43.9); Red Blood Count 4.01 M/mm3 (4.2-5.4)
--- OUTSIDE RECORDS SUMMARY | 2023-10-01 18:55 | XMS RPT_ITS | CCD ---
Author Name Unknown Address [address] [facility] [address] [place] [address] Organization [facility] Care Team Providers Care Cloth Weigher Name Role Phone Bal Denise MD Primary Care Provider Good, Jeffery S Unavailable BAL DENISE MD Primary Care Physician Bal Denise MD Primary Care Provider Good, Ludlow S Unavailable January Lizette GARCIA Unavailable Good, Ludlow S Unavailable January Lizette GARCIA Unavailable Bal Denise MD Primary Care Provider Bal Denise MD Primary Care Provider Good, Jeffery S Unavailable January Lizette GARCIA Unavailable Good, Ludlow S Unavailable January Lizette GARCIA Unavailable Good TIRADO Ludlow S Unavailable BAL DENISE Primary Care Unavailable BAL DENISE Attending Unavailable BAL DENISE Primary Care Unavailable BAL DENISE Referring Unavailable BAL DENISE Primary Care Unavailable BAL DENISE Attending Unavailable BAL DENISE Primary Care Unavailable BAL DENISE Referring Unavailable Yanni DAVIDSON Attending Unavailable BAL DENISE Primary Care Unavailable Yanni DAVIDOSN Referring Unavailable BAL DENISE Primary Care Unavailable Yanni DAVIDSON Attending Unavailable HOWIE, BAL Johnson Primary Care Unavailable HOWIE, BAL Johnson Primary Care Unavailable HOWIE, BAL Johnson Referring Unavailable LILLY GUDINO Attending Unavailable HOWIE, BAL Johnson Primary Care Unavailable HOWIE, BAL Johnson Primary Care Unavailable HOWIE, BAL Johnson Referring Unavailable HOWIE, BAL Johnson Primary Care Unavailable ANASTASIYA LUA Attending Unavailable HOWIE, BAL Johnson Primary Care Unavailable HOWIE, BAL Johnson Attending Unavailable HOWIE, BAL Johnson Primary Care Unavailable HOWIE, BAL Johnson Referring Unavailable HOWIE, BAL Johnson Primary Care Unavailable ANASTASIYA LUA Referring Unavailable HOWIE, BAL Johnson Primary Care Unavailable HOWIE, BAL Johnson Referring Unavailable HOWIE, BAL Johnson Primary Care Unavailable HOWIE, BAL Johnson Referring Unavailable EDWINA OROSCO Referring Unavailable HOWIE, BAL Johnson Primary Care Unavailable HOWIE, BAL Johnson Primary Care Unavailable HOWIE, BAL Johnson Referring Unavailable CONNOR WOLFE Attending Unavailable HOWIE, BAL Johnson Primary Care Unavailable HOWIE, BAL Johnson Referring Unavailable HOWIE, BAL Johnson Primary Care Unavailable HOWIE, BAL Johnson Referring Unavailable HOWIE, BAL Johnson Primary Care Unavailable HOWIE, BAL Johnson Referring Unavailable CONNOR WOLFE Attending Unavailable HOWIE, BAL Johnson Primary Care Unavailable HOWIE, BAL Johnson Referring Unavailable CONNOR WOLFE Attending Unavailable ANA TUCKER Referring Unavailable HOWIE, BAL Johnson Primary Care Unavailable HOWIE, BAL Johnson Primary Care Unavailable HOWIE, BAL Johnson Attending Unavailable HOWIE, BAL Johnson Primary Care Unavailable HOWIE, BAL Johnson Referring Unavailable HOWIE, BAL Johnson Primary Care Unavailable HOWIE, BAL Johnson Attending Unavailable HOWIE, BAL Johnson Primary Care Unavailable HOWIE, BAL Johnson Referring Unavailable HOWIE, BAL Johnson Primary Care Unavailable HOWIE, BAL Johnson Attending Unavailable HOWIE, BAL Johnson Primary Care Unavailable HOWIE, BAL Johnson Attending Unavailable HOWIE, BAL Johnson Attending Unavailable HOWIE, BAL Johnson Primary Care Unavailable HOWIE, BAL Johnson Primary Care Unavailable HOWIE, BAL Johnson Referring Unavailable HOWIE, BAL Johnson Attending Unavailable HOWIE, BAL Johnson Primary Care Unavailable HOWIE, BAL Johnson Primary Care Unavailable HOWIE, BAL Johnson Referring Unavailable Yanni DAVIDSON Attending Unavailable HOWIE, BAL Johnson Primary Care Unavailable Yanni DAVIDSON Referring Unavailable HOWIE, BAL Johnson Primary Care Unavailable HOWIE, BAL Johnson Primary Care Unavailable HOWIE, BAL Johnson Attending Unavailable HOWIE, BAL Johnson Primary Care Unavailable HOWIE, BAL Jhonson Referring Unavailable HOWIE, BAL Johnson Primary Care Unavailable HOWIE, BAL Johnson Referring Unavailable HOWIE, BAL J Primary Care Unavailable BAL DENISE Attending Unavailable ANA TUCKER Attending Unavailable BAL DENISE Primary Care Unavailable BAL DENISE Referring Unavailable BAL DENISE Primary Care Unavailable RAYMUNDO DALAL Attending Unavailab BAL Pascual Primary Care Unavailable RAYMUNDO DALAL Attending UnavailBAL Noguera Primary Care Unavailable BAL DENISE Referring Unavailable Yanni DAVIDSON Referring Unavailable EDWINA OROSCO Attending Unavailable BAL DENISE Primary Care Unavailable EDWINA OROSCO Attending Unavailable BAL DENISE Primary Care Unavailable Allergies Allergy Classification Reported Allergen(s) Allergy Type Date of Onset Reaction(s) Facility (20 sources) Procaine; Translations: [PROCAINE HCL] Drug Allergy 08-23-2016 Other: See Comments [facility] Work Phone: (1 source) Procaine; Translations: [procaine] Drug Allergy [facility] Medications Current Medications Medication Drug Class(es) Dates Sig (Normalized) Sig (Original) aspirin 81 mg delayed release oral tablet (20 sources) Platelet Aggregation Inhibitor, Nonsteroidal Anti-inflammatory Drug Start: 06-10-2016 End: 05-27-2023 Aspir-Low 81 mg oral delayed release tablet Dose : 81 mg = 1 tab(s), Oral, qDay, # 90 tab(s), 0 Refill(s) Start Date: 06/10/16 Status: Ordered Completed/Discontinued Medications Medication Drug Class(es) Dates Sig (Normalized) Sig (Original) [id number] 200 actuat albuterol 0.09 mg/actuat metered dose inhaler (20 sources) beta2-Adrenergic Agonist Start: 10-08-2022 End: 05-27-2023 take 2 puff(s) by inhalation every four hours as needed for wheezing albuterol HFA (PROVENTIL HFA, VENTOLIN HFA) 90 mcg/actuation inhaler Indications: Bronchitis , Acute cough Inhale 2 Puffs as instructed every 4 hours as needed for wheezing/shortness of breath. 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; Translations: [Cerebral artery occlusion, unspecified without mention of cerebral infarction] Onset: 3 04-12-2023 Chronic Anxiety disorders (20 sources) Anxiety; Translations: [Mixed anxiety and depressive disorder] Onset: 3 02-21-2022 Chronic Aortic; peripheral; and visceral artery aneurysms (20 sources) Abdominal aortic aneurysm without rupture; Translations: [Abdominal aortic aneurysm, without rupture] Onset: 9 03-05-2021 Chronic Cardiac dysrhythmias (20 sources) Paroxysmal atrial fibrillation; Translations: [Paroxysmal atrial fibrillation] Onset: 8 12-19-2017 Chronic Chronic kidney disease (20 sources) Chronic kidney disease stage 3; Translations: [CKD (chronic kidney disease) stage 3, GFR 30-59 ml/min] Onset: 8 03-28-2018 Chronic Chronic kidney disease (1 source) Chronic kidney disease; Translations: [Hypertensive kidney disease with stage 3 chronic kidney disease, unspecified whether stage 3a or 3b CKD (HCC)] Onset: 2 Chronic ulcer of skin (19 sources) Chronic non-pressure ulcer of calf extending to fat level; Translations: [Non-pressure chronic ulcer of unspecified calf with fat layer exposed] Onset: 3 10-08-2022 Chronic Coagulation and hemorrhagic disorders (20 sources) Blood coagulation disorder; Translations: [Coagulation defect, unspecified] Onset: 2 10-08-2022 Chronic Conditions associated with dizziness or vertigo (20 sources) Benign paroxysmal positional vertigo; Translations: [Benign paroxysmal vertigo, unspecified ear] Onset: 0 09-15-2019 Episodic Coronary atherosclerosis and other heart disease (20 sources) Coronary atherosclerosis; Translations: [Atherosclerotic heart disease of [place] coronary artery without angina pectoris] Onset: 8 06-23-2020 Chronic Delirium, dementia, and amnestic and other cognitive disorders (20 sources) Alzheimer's disease; Translations: [Alzheimer's disease, unspecified] Onset: 8 12-18-2017 Chronic Disorders of lipid metabolism (20 sources) Hyperlipidemia; Translations: [Other hyperlipidemia] Onset: 04-12-19-2020 Chronic Disorders of teeth and jaw (1 source) Temporomandibular joint disorder; Translations: [Unspecified temporomandibular joint disorder, unspecified side] Episodic Epilepsy; convulsions (20 sources) Dissociative convulsions; Translations: [Unspecified convulsions] 10-26-2021 Episodic Past or Other Problems Problem Classification Problem Date Documented Da te Episodic/Chronic Abdominal hernia (20 sources) Diaphragmatic hernia; Translations: [Diaphragmatic hernia without obstruction or gangrene] Onset: 03-12-2022 10-08-2022 Episodic Chronic obstructive pulmonary disease and bronchiectasis (2 sources) Bronchitis; Translations: [Bronchitis, not specified as acute or chronic] Onset: 10-08-2022 Episodic Coronary atherosclerosis and other heart disease (20 sources) Aortocoronary bypass graft present; Translations: [Presence of aortocoronary bypass graft] Onset: 01-17-2022 10-08-2022 Episodic Deficiency and other anemia (20 sources) Anemia; Translations: [Anemia, unspecified] Onset: 04-02-2022 Episodic Deficiency and other anemia (20 sources) Iron deficiency anemia; Translations: [Iron deficiency anemia, unspecified] Onset: 05-11-2022 10-08-2022 Episodic Diabetes mellitus without complication (3 sources) Hyperglycemia; Translations: [Hyperglycemia, unspecified] Onset: 04-12-2023 04-12-2023 Episodic Fluid and electrolyte disorders (2 sources) Hypokalemia; Translations: [Hypokalemia] Onset: 02-20-2023 Episodic Malaise and fatigue (20 sources) Fatigue; Translations: [Other fatigue] Onset: 03-26-2022 10-08-2022 Episodic Nonspecific chest pain (19 sources) Chest pain; Translations: [Chest pain, unspecified] Onset: 10-08-2022 10-08-2022 Episodic Nutritional deficiencies (20 sources) Iron deficiency; Translations: [Iron deficiency] Onset: 04-02-2022 10-08-2022 Episodic Other aftercare (20 sources) Long-term current use of anticoagulant; Translations: [intermediate card tender (current) use of anticoagulants] Onset: 03-12-2022 10-08-2022 Episodic Other lower respiratory disease (19 sources) Dyspnea; Translations: [Shortness of breath] Onset: 10-08-2022 10-08-2022 Episodic Other non-traumatic joint disorders (1 source) Pain in left hip; Translations: [Chronic left hip pain] Onset: 06-18-2023 Episodic Other screening for suspected conditions (not mental disorders or infectious disease) (20 sources) Patient encounter status; Translations: [Encounter for screening mammogram for malignant neoplasm of breast] Onset: 10-08-2022 Episodic Other upper respiratory disease (20 sources) Anterior epistaxis; Translations: [Epistaxis] Onset: 10-08-2022 10-08-2022 Episodic Residual codes; unclassified (1 source) Other amnesia; Translations: [Memory loss] Onset: 06-05-2023 Episodic Residual codes; unclassified (1 source) Personal history of other specified conditions; Translations: [History of syncope] Onset: 04-12-2023 Episodic Skin and subcutaneous tissue infections (20 sources) Cellulitis of right lower limb; Translations: [Cellulitis of right lower limb] Onset: 04-02-2022 Episodic Sprains and strains (20 sources) Sprain of hip; Translations: [Unspecified sprain of unspecified hip, initial encounter] Onset: 10-08-2022 10-08-2022 Episodic Thyroid disorders (6 sources) Disorder of thyroid gland; Translations: [Disorder of thyroid, unspecified] Onset: 02-20-2023 Episodic Results Test Name Value Interpretation Reference Range Facil ity Vital Signs Date Time Vital Sign Value Performing Clinician Kati raza 08-21-2023 11:44-0500 Body height 165.1 cm Bal Denise MD Work Phone: [facility] 08-21-2023 11:44-0500 Body weight 105.51 kg Bal Denise MD Work Phone: [facility] 08-21-2023 11:44-0500 Diastolic blood pressure 76 mm[Hg] Bal Denise MD Work Phone: [facility] 08-21-2023 11:44-0500 Heart rate 65 /min Bal Denise MD Work Phone: [facility] 08-21-2023 11:44-0500 SaO2% (BldA) [Mass fraction] 95 % Bal Denise MD Work Phone: [facility] 08-21-2023 11:44-0500 Systolic blood pressure 124 mm[Hg] Bal Denise MD Work Phone: [facility] 08-02-2023 14:27-0500 Body weight 104.69 kg Bal Denise MD Work Phone: [facility] 08-02-2023 14:27-0500 Diastolic blood pressure 70 mm[Hg] Bal Denise MD Work Phone: [facility] 08-02-2023 14:27-0500 Heart rate 77 /min Bal Denise MD Work Phone: [facility] 08-02-2023 14:27-0500 Respiratory rate 18 /min Bal Denise MD Work Phone: [facility] 08-02-2023 14:27-0500 SaO2% (BldA) [Mass fraction] 94 % Bal Denise MD Work Phone: [facility] 08-02-2023 14:27-0500 Systolic blood pressure 106 mm[Hg] Bal Denise MD Work Phone: [facility] 07-26-2023 13:54-0500 Heart rate 85 /min Edwina Prebish HIDE SHAKER.HERPETOLOGIST Work Phone: [facility] 07-26-2023 13:54-0500 Respiratory rate 20 /min Edwina Prebish HIDE SHAKER.HERPETOLOGIST Work Phone: [facility] 07-26-2023 13:54-0500 SaO2% (BldA) [Mass fraction] 99 % Edwina Prebish HIDE SHAKER.HERPETOLOGIST Work Phone: [facility] 07-23-2023 14:19-0500 Body height 165.1 cm Bal Denise MD Work Phone: [facility] 07-23-2023 14:19-0500 Body weight 106.59 kg Bal Denise MD Work Phone: [facility] 07-23-2023 14:19-0500 Diastolic blood pressure 83 mm[Hg] Bal Denise MD Work Phone: [facility] 07-23-2023 14:19-0500 Heart rate 70 /min Bal Denise MD Work Phone: [facility] 07-23-2023 14:19-0500 Systolic blood pressure 137 mm[Hg] Bal Denise MD Work Phone: [facility] 07-16-2023 10:04-0500 Body height 165.1 cm NA Davidson PA-C Work Phone: [facility] 07-16-2023 10:04-0500 Body weight 106.69 kg NA Davidson PA-C Work Phone: [facility] 07-16-2023 10:04-0500 Diastolic blood pressure 60 mm[Hg] NA Davidson PA-C Work Phone: [facility] 07-16-2023 10:04-0500 Heart rate 75 /min NA Davidson PA-C Work Phone: [facility] 07-16-2023 10:04-0500 SaO2% (BldA) [Mass fraction] 94 % NA Davidson PA-C Work Phone: [facility] 07-16-2023 10:04-0500 Systolic blood pressure 95 mm[Hg] NA Davidson PA-C Work Phone: [facility] 07-11-2023 16:46-0400 Body temperature 97.7 [degF] NA Davidson PA-C Work Phone: [facility] 07-11-2023 16:46-0400 Body weight 111.58 kg NA Davidson PA-C Work Phone: [facility] 07-11-2023 16:46-0400 Diastolic blood pressure 68 mm[Hg] NA Davidson PA-C Work Phone: [facility] 07-11-2023 16:46-0400 Heart rate 76 /min NA Davidson PA-C Work Phone: [facility] 07-11-2023 16:46-0400 Respiratory rate 16 /min NA Davidson PA-C Work Phone: [facility] 07-11-2023 16:46-0400 SaO2% (BldA) [Mass fraction] 96 % NA Davidson PA-C Work Phone: [facility] 07-11-2023 16:46-0400 Systolic blood pressure 130 mm[Hg] NA Davidson PA-C Work Phone: [facility] 06-18-2023 15:53-0400 Body weight 110.22 kg NA Davidson PA-C Work Phone: [facility] 06-18-2023 15:53-0400 Diastolic blood pressure 78 mm[Hg] NA Davidson PA-C Work Phone: [facility] 06-18-2023 15:53-0400 Heart rate 86 /min NA Davidson PA-C Work Phone: [facility] 06-18-2023 15:53-0400 Respiratory rate 16 /min NA Davidson PA-C Work Phone: [facility] 06-18-2023 15:53-0400 SaO2% (BldA) [Mass fraction] 98 % NA Davidson PA-C Work Phone: [facility] 06-18-2023 15:53-0400 Systolic blood pressure 120 mm[Hg] NA Davidson PA-C Work Phone: [facility] 06-14-2023 09:23-0400 Body weight 108.41 kg Lilly Gudino APRN.HERPETOLOGIST Work Phone: [facility] 06-14-2023 09:23-0400 Diastolic blood pressure 74 mm[Hg] Lilly Gudino APRN.HERPETOLOGIST Work Phone: [facility] 06-14-2023 09:23-0400 Heart rate 80 /min Lilly Gudino APRN.HERPETOLOGIST Work Phone: [facility] 06-14-2023 09:23-0400 Respiratory rate 16 /min Lilly Gudino APRN.HERPETOLOGIST Work Phone: [facility] 06-14-2023 09:23-0400 SaO2% (BldA) [Mass fraction] 98 % Lilly Gudino HIDE SHAKER.HERPETOLOGIST Work Phone: [facility] 06-14-2023 09:23-0400 Systolic blood pressure 130 mm[Hg] Lilly Gudino APRN.HERPETOLOGIST Work Phone: [facility] 05-20-2023 11:46-0400 Body height 165.1 cm Bal Denise MD Work Phone: [facility] 05-20-2023 11:46-0400 Body weight 110.22 kg Bal Denise MD Work Phone: [facility] 05-20-2023 11:46-0400 Diastolic blood pressure 72 mm[Hg] Bal Denise MD Work Phone: [facility] 05-20-2023 11:46-0400 Heart rate 77 /min Bal Denise MD Work Phone: [facility] 05-20-2023 11:46-0400 SaO2% (BldA) [Mass fraction] 97 % Bal Denise MD Work Phone: [facility] 05-20-2023 11:46-0400 Systolic blood pressure 116 mm[Hg] Bal Denise MD Work Phone: [facility] 04-30-2023 17:23-0400 Body temperature 97.7 [degF] Raymundo Dalal MD Work Phone: [facility] 04-30-2023 17:23-0400 Body weight 109.41 kg Raymundo Dalal MD Work Phone: [facility] 04-30-2023 17:23-0400 Diastolic blood pressure 68 mm[Hg] Raymundo Dalal MD Work Phone: [facility] 04-30-2023 17:23-0400 Heart rate 91 /min Raymundo Dalal MD Work Phone: [facility] 04-30-2023 17:23-0400 Respiratory rate 16 /min Raymundo Dalal MD Work Phone: [facility] 04-30-2023 17:23-0400 SaO2% (BldA) [Mass fraction] 96 % Raymundo Dalal MD Work Phone: [facility] 04-30-2023 17:23-0400 Systolic blood pressure 124 mm[Hg] Raymundo Dalal MD Work Phone: [facility] 04-30-2023 09:02-0400 Body temperature 97.81 [degF] Ana Queener PA-C Work Phone: [facility] 04-30-2023 09:02-0400 Body weight 111.13 kg Ana Queener PA-C Work Phone: [facility] 04-30-2023 09:02-0400 Diastolic blood pressure 90 mm[Hg] Ana Queener PA-C Work Phone: [facility] 04-30-2023 09:02-0400 Heart rate 72 /min Ana Queener PA-C Work Phone: [facility] 04-30-2023 09:02-0400 Respiratory rate 16 /min Ana Queener PA-C Work Phone: [facility] 04-30-2023 09:02-0400 SaO2% (BldA) [Mass fraction] 97 % Ana Queener PA-C Work Phone: [facility] 04-30-2023 09:02-0400 Systolic blood pressure 142 mm[Hg] Ana Queener PA-C Work Phone: [facility] 04-12-2023 09:07-0400 Body weight 111.13 kg Bal Denise MD Work Phone: [facility] 04-12-2023 09:07-0400 Diastolic blood pressure 62 mm[Hg] Bal Denise MD Work Phone: [facility] 04-12-2023 09:07-0400 Heart rate 70 /min Bal Denise MD Work Phone: [facility] 04-12-2023 09:07-0400 SaO2% (BldA) [Mass fraction] 97 % Bal Denise MD Work Phone: [facility] 04-12-2023 09:07-0400 Systolic blood pressure 104 mm[Hg] Bal Denise MD Work Phone: [facility] 04-03-2023 11:41-0400 Body height 165.1 cm Bal Denise MD Work Phone: [facility] 04-03-2023 11:41-0400 Body weight 110.77 kg Bal Denise MD Work Phone: [facility] 04-03-2023 11:41-0400 Diastolic blood pressure 58 mm[Hg] Bal Denise MD Work Phone: [facility] 04-03-2023 11:41-0400 Heart rate 77 /min Bal Denise MD Work Phone: [facility] 04-03-2023 11:41-0400 SaO2% (BldA) [Mass fraction] 95 % Bal Denise MD Work Phone: [facility] 04-03-2023 11:41-0400 Systolic blood pressure 98 mm[Hg] Bal Denise MD Work Phone: [facility] 01-14-2023 14:24-0400 Body height 165.1 cm Bal Denise MD Work Phone: [facility] 01-14-2023 14:24-0400 Body weight 113.4 kg Bal Denise MD Work Phone: [facility] 01-14-2023 14:24-0400 Diastolic blood pressure 80 mm[Hg] Bal Denise MD Work Phone: [facility] 01-14-2023 14:24-0400 Heart rate 75 /min Bal Denise MD Work Phone: [facility] 01-14-2023 14:24-0400 SaO2% (BldA) [Mass fraction] 96 % Bal Denise MD Work Phone: [facility] 01-14-2023 14:24-0400 Systolic blood pressure 136 mm[Hg] Bal Denise MD Work Phone: [facility] 10-08-2022 08:11-0500 Body height 165.1 cm Bal Denise MD Work Phone: [facility] 10-08-2022 08:11-0500 Body temperature 97.81 [degF] Bal Denise MD Work Phone: [facility] 10-08-2022 08:11-0500 Body weight 108.86 kg Bal Denise MD Work Phone: [facility] 10-08-2022 08:11-0500 Diastolic blood pressure 66 mm[Hg] Bal Denise MD Work Phone: [facility] 10-08-2022 08:11-0500 Heart rate 71 /min Bal Denise MD Work Phone: [facility] 10-08-2022 08:11-0500 SaO2% (BldA) [Mass fraction] 98 % Bal Denise MD Work Phone: [facility] 10-08-2022 08:11-0500 Systolic blood pressure 110 mm[Hg] Bal Denise MD Work Phone: [facility] 07-18-2022 10:35-0500 Diastolic blood pressure 82 mm[Hg] Anastasiya Haagen HIDE SHAKER.HERPETOLOGIST Work Phone: [facility] 07-18-2022 10:35-0500 Heart rate 83 /min Anastasiya Haagen HIDE SHAKER.HERPETOLOGIST Work Phone: [facility] 07-18-2022 10:35-0500 Respiratory rate 18 /min Anastasiya Haagen HIDE SHAKER.HERPETOLOGIST Work Phone: [facility] 07-18-2022 10:35-0500 SaO2% (BldA) [Mass fraction] 95 % Anastasiya Haagen HIDE SHAKER.HERPETOLOGIST Work Phone: [facility] 07-18-2022 10:35-0500 Systolic blood pressure 110 mm[Hg] Anastasiya Haagen HIDE SHAKER.HERPETOLOGIST Work Phone: [facility] 07-04-2022 09:43-0400 Diastolic blood pressure 82 mm[Hg] Anastasiya Haagen HIDE SHAKER.HERPETOLOGIST Work Phone: [facility] 07-04-2022 09:43-0400 Heart rate 71 /min Anastasiya Haagen HIDE SHAKER.HERPETOLOGIST Work Phone: [facility] 07-04-2022 09:43-0400 Respiratory rate 18 /min Anastasiya Haagen HIDE SHAKER.HERPETOLOGIST Work Phone: [facility] 07-04-2022 09:43-0400 SaO2% (BldA) [Mass fraction] 94 % Anastasiya Haagen HIDE SHAKER.HERPETOLOGIST Work Phone: [facility] 07-04-2022 09:43-0400 Systolic blood pressure 122 mm[Hg] Anastasiya Santillanagen HIDE SHAKER.HERPETOLOGIST Work Phone: [facility] 06-27-2022 08:20-0400 Body weight 109.59 kg Bal Denise MD Work Phone: [facility] 06-27-2022 08:20-0400 Diastolic blood pressure 74 mm[Hg] Bal Denise MD Work Phone: [facility] 06-27-2022 08:20-0400 Heart rate 78 /min Bal Denise MD Work Phone: [facility] 06-27-2022 08:20-0400 Respiratory rate 16 /min Bal Denise MD Work Phone: [facility] 06-27-2022 08:20-0400 Systolic blood pressure 122 mm[Hg] Bal Denise MD Work Phone: [facility] 06-18-2022 19:00-0400 Body weight 107.96 kg Bal Denise MD Work Phone: [facility] 06-18-2022 19:00-0400 Diastolic blood pressure 82 mm[Hg] Bal Denise MD Work Phone: [facility] 06-18-2022 19:00-0400 Heart rate 88 /min Bal Denise MD Work Phone: [facility] 06-18-2022 19:00-0400 Systolic blood pressure 132 mm[Hg] Bal Denise MD Work Phone: [facility] 06-11-2022 17:39-0400 Body temperature 98.1 [degF] Vince Sheridan MD Work Phone: [facility] 06-11-2022 17:39-0400 Body weight 108.86 kg Vince Sheridan MD Work Phone: [facility] 06-11-2022 17:39-0400 Diastolic blood pressure 68 mm[Hg] Vince Sheridan MD Work Phone: [facility] 06-11-2022 17:39-0400 Heart rate 75 /min Vince Sheridan MD Work Phone: [facility] 06-11-2022 17:39-0400 Respiratory rate 21 /min Vince Sheridan MD Work Phone: [facility] 06-11-2022 17:39-0400 SaO2% (BldA) [Mass fraction] 98 % Vince Sheridan MD Work Phone: [facility] 06-11-2022 17:39-0400 Systolic blood pressure 100 mm[Hg] Vince Sheridan MD Work Phone: [facility] 03-19-2022 09:39-0400 Body temperature 98.1 [degF] Bal Denise MD Work Phone: [facility] 03-19-2022 09:39-0400 Body weight 111.68 kg Bal Denise MD Work Phone: [facility] 03-19-2022 09:39-0400 Diastolic blood pressure 72 mm[Hg] Bal Denise MD Work Phone: [facility] 03-19-2022 09:39-0400 Heart rate 61 /min Bal Denise MD Work Phone: [facility] 03-19-2022 09:39-0400 Respiratory rate 18 /min Bal Denise MD Work Phone: [facility] 03-19-2022 09:39-0400 SaO2% (BldA) [Mass fraction] 97 % Bal Denise MD Work Phone: [facility] 03-19-2022 09:39-0400 Systolic blood pressure 122 mm[Hg] Bal Denise MD Work Phone: [facility] 03-08-2022 09:25-0400 Heart rate 91 /min PREET MARTINEZ MD [address] [place] [address] 03-08-2022 05:00-0400 Body temperature 100.58 [degF] PREET MARTINEZ MD [address] [place] [address] 03-08-2022 05:00-0400 Diastolic blood pressure 57 mm[Hg] PREET MARTINEZ MD [address] [place] [address] 03-08-2022 05:00-0400 Heart rate 81 /min PREET MARTINEZ MD [address] [place] [address] 03-08-2022 05:00-0400 Mean blood pressure 74 mm[Hg] PREET MARTINEZ MD [address] [place] [address] 03-08-2022 05:00-0400 Reason For Taking VItal Signs PREET MARTINEZ MD [address] [place] [address] 03-08-2022 05:00-0400 Respiratory rate 18 /min PREET MARTINEZ MD [address] [place] [address] 03-08-2022 05:00-0400 Systolic blood pressure 108 mm[Hg] PREET MARTINEZ MD [address] [place] [address] 03-08-2022 04:00-0400 Heart rate 79 /min PREET MARTINEZ MD [address] [place] [address] 03-08-2022 00:22-0400 Respiratory rate 14 /min PREET MARTINEZ MD [address] [place] [address] 03-07-2022 22:23-0400 Respiratory rate 14 /min PREET MARTINEZ MD [address] [place] [address] 03-07-2022 20:35-0400 Body temperature 98.96 [degF] PREET MARTINEZ MD [address] [place] [address] 03-07-2022 20:35-0400 Diastolic blood pressure 68 mm[Hg] PREET MARTINEZ MD [address] [place] [address] 03-07-2022 20:35-0400 Mean blood pressure 83 mm[Hg] PREET MARTINEZ MD [address] [place] [address] 03-07-2022 20:35-0400 Systolic blood pressure 112 mm[Hg] PREET MARTINEZ MD [address] [place] [address] 03-07-2022 17:34-0400 Heart rate 77 /min PREET MARTINEZ MD [address] [place] [address] 03-07-2022 17:32-0400 Diastolic blood pressure 63 mm[Hg] PREET MARTINEZ MD [address] [place] [address] 03-07-2022 17:32-0400 Mean blood pressure 83 mm[Hg] PREET MARTINEZ MD [address] [place] [address] 03-07-2022 17:32-0400 Systolic blood pressure 123 mm[Hg] PREET MARTINEZ MD [address] [place] [address] 03-07-2022 13:05-0400 Diastolic Blood Pressure NBP 94 1 PREET MARTINEZ MD [address] [place] [address] 03-07-2022 13:05-0400 Reason For Taking VItal Signs PREET MARTINEZ MD [address] [place] [address] 03-07-2022 13:05-0400 Systolic Blood Pressure NBP 113 1 PREET MARTINEZ MD [address] [place] [address] 03-07-2022 12:45-0400 Diastolic Blood Pressure NBP 59 1 PREET MARTINEZ MD [address] [place] [address] 03-07-2022 12:45-0400 Systolic Blood Pressure NBP 114 1 PREET MARTINEZ MD [address] [place] [address] 03-07-2022 12:30-0400 Diastolic Blood Pressure NBP 73 1 PREET MARTINEZ MD [address] [place] [address] 03-07-2022 12:30-0400 Systolic Blood Pressure NBP 131 1 PREET MARTINEZ MD [address] [place] [address] 03-07-2022 11:25-0400 Body temperature 96.98 [degF] PREET MARTINEZ MD [address] [place] [address] 03-07-2022 10:55-0400 Body temperature 95.43 [degF] PREET MARTINEZ MD [address] [place] [address] 03-07-2022 10:50-0400 Body temperature 95.5 [degF] PREET MARTINEZ MD [address] [place] [address] 03-07-2022 10:45-0400 Body temperature 95.74 [degF] PREET MARTINEZ MD [address] [place] [address] 03-07-2022 06:17-0400 Body height 162.6 cm PREET MARTINEZ MD [address] [place] [address] 03-07-2022 06:17-0400 Body temperature 96.98 [degF] PREET MARTINEZ MD [address] [place] [address] 03-07-2022 06:17-0400 Body weight 112.7 kg PREET MARTINEZ MD [address] [place] [address] 03-07-2022 06:17-0400 Body weight 42.63 kg/m2 PREET MARTINEZ MD [address] [place] [address] 03-07-2022 06:17-0400 diastolic 88 mm[Hg] PREET MARTINEZ MD [address] [place] [address] 03-07-2022 06:17-0400 Heart rate 65 /min PREET MARTINEZ MD [address] [place] [address] 03-07-2022 06:17-0400 systolic 134 mm[Hg] PREET MARTINEZ MD [address] [place] [address] 12-08-2021 09:12-0400 Body temperature 97.59 [degF] Bal Morales Jr., MD Work Phone: [facility] 12-08-2021 09:12-0400 Body weight 112.95 kg Bal Morales Jr., MD Work Phone: [facility] 12-08-2021 09:12-0400 Diastolic blood pressure 62 mm[Hg] Bal Morales Jr., MD Work Phone: [facility] 12-08-2021 09:12-0400 Heart rate 57 /min Bal Morales Jr., MD Work Phone: [facility] 12-08-2021 09:12-0400 Respiratory rate 18 /min Bal Morales Jr., MD Work Phone: [facility] 12-08-2021 09:12-0400 SaO2% (BldA) [Mass fraction] 99 % Bal Morales Jr., MD Work Phone: [facility] 12-08-2021 09:12-0400 Systolic blood pressure 110 mm[Hg] Bal Morales Jr., MD Work Phone: [facility] Encounters Encounter Date Encounter Type Care Provider Facility Start: 09-06-2023 End: 09-06-2023 ambulatory [facility] Facility:[facility] Start: 09-05-2023 End: 09-06-2023 ambulatory BAL DENISE Facility:[facility] Start: 09-05-2023 End: 09-06-2023 ambulatory [facility] Facility:[facility] Start: 08-27-2023 End: 08-27-2023 ambulatory [facility] Facility:[facility] Start: 08-21-2023 End: 08-22-2023 ambulatory [facility] Facility:[facility] Start: 08-21-2023 End: 08-21-2023 Patient encounter procedure Bal Denise MD Work Phone: [facility] [place] Procedures Date Procedure Procedure Detail Performing Clinician Start: 07-16-2023 Ecg routine ecg w/le ast 12 lds i&r only [facility] Provider Start: 04-22-2023 Us retroperitoneal r eal time w/image limited Bal Denise MD Work Phone: Start: 04-12-2023 Lipid 1996 panel - S june or Plasma Bal Denise MD Work Phone: Start: 02-07-2022 Echocardiography PREET COLLINS MD Plan of Treatment Date Care Activity Detail Author Start: 06-28-2033 Urine microalbumin profile DTa P,Tdap,Td Vaccine (3 - Td or Tdap) [facility] Start: 06-18-2032 Urine microalbumin profile [facility] Start: 04-12-2028 Lipid 1996 panel - S june or Plasma Lipid Screening [facility] Start: 04-12-2028 LIPID SCREEN LIPID SCREEN [facility] Start: 08-21-2026 Diabetes Screening Diabetes Screenvt g [facility] Start: 08-02-2026 Diabetes Screening Diabetes Screenvt g [facility] Start: 07-23-2026 Diabetes Screening Diabetes Screenin g [facility] Start: 04-12-2026 DIABETES SCREEN DIABETES SCREEN [facility] Start: 04-12-2026 Diabetes Screening Diabetes Screenvt g [facility] Start: 03-22-2026 LIPID SCREEN LIPID SCREEN [facility] Start: 01-15-2026 DIABETES SCREEN DIABETES SCREEN [facility] Start: 05-11-2025 DIABETES SCREEN DIABETES SCREEN [facility] Start: 03-19-2025 DIABETES SCREEN DIABETES SCREEN [facility] Start: 11-15-2024 Colonoscopy COLONOSCOPY [facility] Start: 11-15-2024 COLORECTAL CANCER SCREENING COLORECTAL CANCER SCREENING [facility] Start: 10-12-2024 DIABETES SCREEN DIABETES SCREEN [facility] Start: 08-21-2024 Annual PCP Team Insurance Law Specialist natan Disease Visit Annual PCP Team Chronic Disease Visit [facility] Start: 08-21-2024 BP Controlled (<130/80) BP Controlle d (<130/80) [facility] Start: 08-02-2024 Annual PCP Team Insurance Law Specialist natan Disease Visit Annual PCP Team Chronic Disease Visit [facility] Start: 08-02-2024 BP Controlled (<130/80) BP Controlle d (<130/80) [facility] Start: 08-02-2024 Complete blood count Hemoglobin/Moises tocrit [facility] Start: 08-02-2024 Creatinine measurement Serum Creatin ine [facility] Start: 08-02-2024 Hemoglobin/Hematocrit Hemoglobin/Hem atocrit [facility] Start: 08-02-2024 Serum Creatinine Serum Creatinine Cl [facility] Start: 07-23-2024 Annual PCP Team Insurance Law Specialist natan Disease Visit Annual PCP Team Chronic Disease Visit [facility] Start: 07-23-2024 Hemoglobin/Hematocrit Hemoglobin/Hem atocrit [facility] Start: 07-23-2024 Serum Creatinine Serum Creatinine Cl [facility] Start: 07-16-2024 Annual PCP Team Insurance Law Specialist natan Disease Visit Annual PCP Team Chronic Disease Visit [facility] Start: 07-16-2024 BP Controlled (<130/80) BP Controlle d (<130/80) [facility] Start: 07-11-2024 Annual PCP Team Insurance Law Specialist natan Disease Visit Annual PCP Team Chronic Disease Visit [facility] Start: 06-18-2024 Annual PCP Team Insurance Law Specialist natan Disease Visit Annual PCP Team Chronic Disease Visit [facility] Start: 06-18-2024 BP Controlled (<130/80) BP Controlle d (<130/80) [facility] Start: 06-14-2024 Annual PCP Team Insurance Law Specialist natan Disease Visit Annual PCP Team Chronic Disease Visit [facility] Start: 05-27-2024 Covid-19 Vaccine (#1) Covid-19 Vacci ne (#1) [facility] Immunizations Immunization Date Immunization Notes Care Provider Fa cility 06-18-2022 tetanus toxoid, redu kamilah diphtheria toxoid, and acellular pertussis vaccine, adsorbed Bal Denise MD Work Phone: [facility] 10-06-2018 influenza virus vacc ine, unspecified formulation Bal Denise MD Work Phone: [facility] Payers Date Payer Category Payer Medicaid [employer] [facility] [id number] 2021-Present [phone] [address] [place] [address] Medicaid [id number] 2021 Medicaid [id number] 2021 Medicaid [id number] 2021 Medicaid [id number] 2017 Unknown ANTHEM [employer] S AND BLUE SHIELD AFTAB SANCHEZ O [id number] 2017-Present [phone] [address] [place] [address] O [id number] 2017 Unknown ANTHEM BLUE CROS S AND BLUE SHIELD SEGUNDOEM PATRICIAUE O [id number] 2017-Present [phone] [address] [place] [address] O [id number] 2017 Unknown [id number] Social History Date Type Detail Facility Start: 08-23-2016 End: 05-23-2022 Tobacco smoking status NHIS Never smoked tobacco [facility] Work Phone: Start: 08-23-2016 End: 05-23-2022 Tobacco use and exposure Smokeless tobacco non-user [facility] Work Phone: Start: 10-26-2021 End: 08-02-2023 Alcohol intake Current non-drinker of alcohol (finding) [facility] Start: 1945 Sex Assigned At Not on file [facility] Start: 11-28-2021 End: 06-27-2022 Exposure to SARS-CoV-2 (event) Not sure [facility] Start: 1945 Sex Assigned At Female [facility] Start: 03-03-2022 End: 03-13-2022 Exposure to SARS-CoV-2 (event) Unable to assess [facility] Work Phone: Start: 02-18-2023 History SDOH Food Worry 1 [facility] Start: 02-18-2023 History SDOH Transport Med 2 [facility]an Start: 02-20-2023 End: 04-02-2023 History of Social function [facility] natan Work Phone: Start: 02-20-2023 End: 04-02-2023 Tobacco use panel [facility] Work Phone: (I/We) worried aleta er (my/our) food would run out before (I/we) got money to buy more. Never true [facility] Work Phone: In the past 12 month s, has lack of transportation kept you from medical appointments or from getting medications? No [facility] Work Phone: Start: 01-10-2022 Gender identity Identifies as female gender (finding) [facility] Goals Date Patient Goal Desired Activity /State Personal health goal Personal health goal Functional Status Date Assessment Result Facility 03-08-2022 Functional Status Identified as high risk, Fall ID band on, Room located near nursing station, Bed alert on, Door open, Non-Slip footwear, Alarm activated & functional [facility] 03-08-20[address] [facility] 03-07-2022 Functional Status [facility] 03-07-2022 Functional Status [facility] 03-07-2022 Functional Status Identification band, Verbal [facility] 03-07-2022 Functional Status [facility] 03-07-2022 Functional Status Maintained [facility] Mental Status Date Assessment Result Facility 03-08-2022 [facility] 03-07-2022 Mental Status [facility] Clinical Notes 09-15-2019 to 09-20-2023 Telephone Encounter - Shazia Marie - 08/21/2023 12:11 PM ESTTelephone Encounter - Bal Denise MD - 08/20/2023 5:17 PM ESTTelephone Encounter - Edwina Martino Ma - 08/20/2023 9:17 AM EST Note Date & Type Note Facility 09-20-2023 Note HNO ID: [id number] Author: BAL DENISE MD Service: ? Author Type: Physician Type: Progress Notes Filed: 09/20/2023 13:49 Note Text: sent [facility] 09-20-[address] [facility] 09-06-2023 Note HNO ID: [id number] Author: Dee Shah LPN Service: ? Author Type: LICENSED NURSE Type: Progress Notes Filed: 09/06/2023 3:03 PM Note Text: Review of Systems Constitutional: Positive for activity change. Negative for chills, fever and unexpected weight change. Gastrointestinal: Negative for bowel retention or incontinence Genitourinary: Negative for difficulty urinating. Negative for bladder retention or incontinence Musculoskeletal: Positive for back pain, gait problem, neck pain and neck stiffness. Negative for arthralgias, joint swelling and myalgias. Neurological: Positive for headaches. Negative for weakness and numbness. Psychiatric/Behavioral: Positive for sleep disturbance. Negative for dysphoric mood and suicidal ideas. The patient is not nervous/anxious. [facility] 09-05-2023 Note HNO ID: [id number] Author: Edwina Orosco APRN.HERPETOLOGIST Service: ? Author Type: Nurse Practitioner Type: Progress Notes Filed: 09/06/2023 3:03 PM Note Text: [facility] Today's Date: 09/06/2023 Last Visit: N/A Name: Tanya Sanchez : 1945 Purpose: Follow-up Patient Evaluation - This is an established patient, returning today for continued evaluation and management of the chief complaint noted below Chief complaint: back and left hip pain with radiation down her left leg to her toes Pertinent Past Medical History: Seizure Disorder, Coronary Artery Disease (CAD), Hypertension (HTN), Atrial Fibrillation (with or without Atrial Flutter), , Gastroesophageal Reflux Disease (GERD), Chronic Kidney Disease (CKD) - Stage 3 , Hypothyroidism, , Anxiety (TERRA)HLD Pertinent Past Surgeries: none Interval History: Overall pain and functional disability since last visit: Unchanged New Complaints since last visit: No Pain Description: Timing: Intermittent Character: Burning Primary Location: low back and into left hip Radiation: down her left leg to her toes Exacerbating factors: walking Relieving factors: sitting Interferes with: physical activity, work, and household cleaning The patient denies red flags Patient is here with her daughter reporting that she is continues to have low back pain. Patient stating that she is not hurting today but some days she is hurting extremely bad. Patient stating that currently she is taking approximately 1 tramadol per day. Patient's daughter is helping with this as the patient is a poor historian. Patient states daughter states that her mom does take the medication about 1/day. Patient's daughter states that she does not feel comfortable giving her mother the bottle of pills as she does get confused and does not remember when she takes it. Patient's daughter feels that she would be better managed if she could control her medications and just give her 1 tablet at night as this is when the patient's pain is the most extreme and it is preventing her from sleeping. MEDICATIONS Taken TO DATE (for the chief complaint(s)): Neuropathics: Neurontin (Gabapentin): Discontinued - Intolerance: dizzy NSAIDS: no nsaids on a blood thinner Muscle Relaxants: tizanidine beneficial Topicals: None Other Prescription or OTC Pain Medications: Tylenol (Acetaminophen): Discontinued - No Benefit Opioids: Tramadol: Discontinued - No Benefit Tolerating Medication: Yes Medications helping improve ADL's and Self-care: Yes Anti-depressants or Mood-Stabilizers: Buspar, Zoloft Anti-Coagulants: None [facility] 07/26/2023 09/06/2023 Questionnaire GREENLIGHT - Completed Date 07/26/2023 - Questionnaire - URINE DRUG SCREEN Completed Date - 09/06/2023 Comments - STARTED NEW MED Questionnaire - NA/OIC Completed Date - 09/06/2023 Comments - SIGNED BY POA Questionnaire Opiod Risk Tool - Completed Date 07/26/2023 - Urine Drug Screen Questionnaire URINE DRUG SCREEN Completed Date 09/06/2023 Comments STARTED NEW MED NA/OIC Questionnaire NA/OIC Completed Date 09/06/2023 Comments SIGNED BY POA (All drug screens are appropriate unless indicated otherwise) Therapies Attended (Current or Most Recent): No Current Therapies Notable Events During Course of Treatment: History of Present Illness (HPI): 07/26/2023 - Initial HPI (Obtained by Edwina Orosco CNP). DURATION AND ONSET: The pain complaint has been present for approximately years. The pain had a sudden onset. The mechanism of injury is known and is as follows: fell down a corn crib and she had pain after PRIOR TREATMENTS: Medications, Physical Therapy, Chiropractic Treatment Pain Description: Timing: intermittant Character: Burning Primary Location: low back into left hip Radiation: radiation down her left leg to her toes Exacerbating factors: walking Relieving factors: sitting Interferes with: physical activity, work, and household cleaning The patient denies red flags Patient is here with her daughter today complaining of back pain patient stating the pain is mostly on the left side in the lower back going into her hip and down her left leg to her toes. Patient states she has been to physical therapy and same medications and chiropractic treatments without help. Patient states she has tried and failed different medications for pain during negative side effects. Patient states she has taken tramadol which has helped with her pain.Patient was sent here to see what potentially can be done for her back pain. Patient has not had recent a recent MRI.Patient is here with her daughter and her daughter is (more content not included)... [facility] 09-05-[address] [facility] 08-27-[address] [facility] 08-21-[address] [facility] 08-21-2023 Miscellaneous Notes Patient here for appointment today. Commode, shower chair and wheelchair discussed. Orders, notes and demo faxed to number below. Patient and daughter who was here with her aware. Shazia Marie Printed. Fax received from [facility] Requesting bedside commode and shower chair. Fax rx and and face to face notes to [phone] ATTN: Slade Jarrett documented in this encounter [facility] 08-21-2023 History of Present illness Narrative Patient presents with: Follow Up HPI: Patient presents today for office visit for follow up and face to face. No falls. Feels a little wobbly. No syncopal episodes. Denies chest pain and shortness of breath No dizziness. Legs aren't bothering her today. Has been using a wheelchair to get around our office. Using a walker at home. Would benefit from having a wheelchair to help with meeting her adls and moving around with fatigue. Need for bedside commode and shower chair. Family concerned with debility and fall risk. Needs help with bathing and toileting. No new falls. A1c is pending. Just had cbc and bmp done. Weight Is stable. Eating and drinking is stable. Skin tear is improving is much better. Has a smaller one on left leg she had bumped on something. Also healing well. Has some support socks to wear. See previous ov: Was admitted again to [facility] for new issue. Had uti and possible sepsis. Given iv fluids and recephin. Sent home on cipro. Potassium was low and was replenished. Did a renal ultrasound reviewing her records. Did have emesis before admission. Became acutely ill but looked out of it Now feeling well. Still taking the antibiotics. No dysuria or no frequency(she did have that prior) No fever or chills. No back pain No current nausea or vomiting. Using her walker! No syncope. MEDICATIONS: Current Outpatient Medications Medication Sig CIPROFLOXACIN HCL ORAL Take 500 mg by mouth two times a day. ferrous sulfate 325 mg (65 mg iron) tablet Take 1 tablet by mouth two times a day with meals. pantoprazole DR (PROTONIX) 40 mg tablet Take 1 tablet by mouth two times a day. traMADol (ULTRAM) 50 mg tablet Take 1 tablet by mouth every 6 hours as needed for pain (on as needed for severe pain). levothyroxine (SYNTHROID) 100 mcg tablet Take 1 tablet by mouth daily before breakfast. For thyroid. budesonide, enteric coated (ENTOCORT EC) 3 mg 24 hr capsule Take 3 capsules by mouth once daily. apixaban (ELIQUIS) 5 mg tab(s) Take 1 tablet by mouth twice daily. busPIRone (BUSPAR) 5 mg tablet Take 1 tablet by mouth three times daily. sertraline (ZOLOFT) 100 mg tablet Take 1 tablet by mouth once daily. MELATONIN ORAL Take 10 mg by mouth. atorvastatin (LIPITOR) 20 mg tablet Take 1 tablet by mouth once daily. For cholesterol. nitroglycerin sublingual (NITROQUICK) 0.4 mg SL tablet Dissolve 1 tablet under the tongue every 5 minutes as needed. No current facility-administered medications for this visit. ALLERGIES: ALLERGIES Allergen Reactions Novocain [Procaine * Other: See Comments Blood pressure rises PAST MEDICAL HISTORY Diagnosis Date Alzheimer's dementia without behavioral disturbance (HCC) Atrial fibrillation (HCC) Benign paroxysmal positional vertigo Dermatitis GERD (gastroesophageal reflux disease) Hypothyroidism Pseudoseizures Stage 3a chronic kidney disease (CKD) (HCC) Thyroid condition PAST SURGICAL HISTORY Procedure Laterality Date COLONOSCOPY FLX DX W/COLLJ SPEC WHEN PFRMD 11/16/2019 Colonoscopy EGD N/A 08/27/2016 ESOPHAGOGASTRODUODENOSCOPY TRANSORAL DIAGNOSTIC 11/16/2019 EGD PAST SURGICAL HISTORY OF 2007 coronary artery bypass two FAMILY HISTORY Adopted: Yes Problem Relation Age of Onset other (alcholoism) Father Social History Tobacco Use Smoking status: Never Smokeless tobacco: Never Vaping Use Vaping Use: Never used Substance Use Topics Alcohol use: No Drug use: No Reviewed current medications, allergies, past medical history, surgical history, family history and social history today. REVIEW OF SYSTEMS All other reviewed and negative other than HPI. VITALS: BP 124/76 Pulse 65 Ht 165.1 cm (5' 5 ) Wt 105.5 kg (232 lb 9.6 oz) SpO2 95% BMI 38.71 kg/m Last 4 Encounter Wt Readings: Date: Wt: 08/02/2023 104.7 kg (230 lb 12.8 oz) 07/23/2023 106.6 kg (235 lb) 07/16/2023 106.7 kg (235 lb 3.2 oz) 07/11/2023 111.6 kg (246 lb) PHYSICAL EXAMINATION: General appearance: Well appearing, alert, in no acute distress, well-hydrated, well nourished. Skin: skin lesions healing. Head: Normocephalic, no masses, lesions, tenderness or abnormalities Lungs: Lungs clear to auscultation. No wheezing, rhonchi, rales Heart: RRR without murmur, gallop, or rubs. No ectopy Abdomen: Normal abdominal exam, Abdomen soft, non-tender. Bowel sounds normal. No masses, organomegaly Extremities: No deformities, edema, skin discoloration, clubbing or cyanosis. Good capillary refill. ASSESSMENT/PLAN: 1. Chronic bilateral low back pain with bilateral sciatica - ICD9: 724.2, 724.3, 338.29, ICD10: M54.42, M54.41, G89.29 (primary diagnosis) - would benefit form dme equipment including her bedside commode, wheelchair and shower chair. - DME SUPPLY OR ACCESSORY, NOS 2. Coronary artery disease involving mcgrath coronary artery of mcgrath heart without angina pectoris - ICD9: 414.01, ICD10: I25.10 - doing well - DME SUPPLY OR ACCESSORY, NOS 3. Paroxysmal atrial fibrillation (HCC) - ICD9: 427.31, ICD10: I48.0 - stable. 4. Essential hypertension - ICD9: 401.9, ICD10: I10 - Controlled 5. History of atrial fibrillation - ICD9: V12.59, ICD10: Z86.79 - stable. Bal Denise MD documented in this encounter [facility] 08-07-[address] [facility] 08-07-2023 History of Present illness Narrative CDM Telephonic Outreach - ckd, htn Provider Action/FYI Contacted for: Routine Telephonic Outreach Contact made with patient: Yes Patient identified by name and date of . Discussed care with daughter Are you experiencing any new or worsening symptoms you need to talk about today? No Disease Specific Do you check your blood pressure at home? No Do you have new or worsening shortness of breath with activity? No Do you feel like you are dehydrated for any reason, including not being able to eat or drink normally, or having less urine/much darker urine than normal for you? No Do you check your daily weight at home? No Based on health assessment and treatment teacher, the following disposition is advised: No symptoms or symptoms present, not severe. Routed to: No Action Needed TERESA Education Provided this Outreach: No Spoke with patient's daughter Antonella. Per her account, patient is doing well. No urinary concerns. Ambulating with rollator. Antonella drives patient to all of her appts. She denies needs or concerns at this time and agrees to contact pcp with changes. Dominga Dunn RN August 07, 2023 1:53 PM documented in this encounter [facility] 08-05-2023 Miscellaneous Notes Daughter Antonella informed and verbalized understanding. Shazia Marie Labs are ok. Other than sugar is up. Watch carbs in diet. Recheck a1c in two weeks. documented in this encounter [facility] 08-02-[address] [facility] 08-02-2023 History of Present illness Narrative Patient presents with: Hospital F/U: Discharged on 07/29 from [facility] for sepsis r/t UTI HPI: Patient presents today for office visit for hospital follow up. Was admitted again to [facility] for new issue. Had uti and possible sepsis. Given iv fluids and recephin. Sent home on cipro. Potassium was low and was replenished. Did a renal ultrasound reviewing her records. Did have emesis before admission. Became acutely ill but looked out of it Now feeling well. Still taking the antibiotics. No dysuria or no frequency(she did have that prior) No fever or chills. No back pain No current nausea or vomiting. Using her walker! No syncope. Skin tear MEDICATIONS: Current Outpatient Medications Medication Sig CIPROFLOXACIN HCL ORAL Take 500 mg by mouth two times a day. ferrous sulfate 325 mg (65 mg iron) tablet Take 1 tablet by mouth two times a day with meals. pantoprazole DR (PROTONIX) 40 mg tablet Take 1 tablet by mouth two times a day. traMADol (ULTRAM) 50 mg tablet Take 1 tablet by mouth every 6 hours as needed for pain (on as needed for severe pain). levothyroxine (SYNTHROID) 100 mcg tablet Take 1 tablet by mouth daily before breakfast. For thyroid. budesonide, enteric coated (ENTOCORT EC) 3 mg 24 hr capsule Take 3 capsules by mouth once daily. apixaban (ELIQUIS) 5 mg tab(s) Take 1 tablet by mouth twice daily. busPIRone (BUSPAR) 5 mg tablet Take 1 tablet by mouth three times daily. sertraline (ZOLOFT) 100 mg tablet Take 1 tablet by mouth once daily. MELATONIN ORAL Take 10 mg by mouth. atorvastatin (LIPITOR) 20 mg tablet Take 1 tablet by mouth once daily. For cholesterol. nitroglycerin sublingual (NITROQUICK) 0.4 mg SL tablet Dissolve 1 tablet under the tongue every 5 minutes as needed. gabapentin (NEURONTIN) 100 mg capsule Take 2 capsules by mouth two times a day for 90 days. (Patient not taking: Reported on 07/16/2023) nystatin (MYCOSTATIN) cream Apply 1 application to affected area twice daily. (Patient not taking: Reported on 07/26/2023) famotidine (PEPCID) 20 mg tablet Take 1 tablet by mouth at bedtime as needed. (Patient not taking: Reported on 08/02/2023) No current facility-administered medications for this visit. ALLERGIES: ALLERGIES Allergen Reactions Novocain [Procaine * Other: See Comments Blood pressure rises PAST MEDICAL HISTORY Diagnosis Date Alzheimer's dementia without behavioral disturbance (HCC) Atrial fibrillation (HCC) Benign paroxysmal positional vertigo Dermatitis GERD (gastroesophageal reflux disease) Hypothyroidism Pseudoseizures Stage 3a chronic kidney disease (CKD) (HCC) Thyroid condition PAST SURGICAL HISTORY Procedure Laterality Date COLONOSCOPY FLX DX W/COLLJ SPEC WHEN PFRMD 11/16/2019 Colonoscopy EGD N/A 08/27/2016 ESOPHAGOGASTRODUODENOSCOPY TRANSORAL DIAGNOSTIC 11/16/2019 EGD PAST SURGICAL HISTORY OF 2007 coronary artery bypass two FAMILY HISTORY Adopted: Yes Problem Relation Age of Onset other (gay) Father Social History Tobacco Use Smoking status: Never Smokeless tobacco: Never Vaping Use Vaping Use: Never used Substance Use Topics Alcohol use: No Drug use: No Reviewed current medications, allergies, past medical history, surgical history, family history and social history today. REVIEW OF SYSTEMS All other reviewed and negative other than HPI. VITALS: BP 106/70 Pulse 77 Resp 18 Wt 104.7 kg (230 lb 12.8 oz) SpO2 94% BMI 38.41 kg/m Last 4 Encounter Wt Readings: Date: Wt: 08/02/2023 104.7 kg (230 lb 12.8 oz) 07/23/2023 106.6 kg (235 lb) 07/16/2023 106.7 kg (235 lb 3.2 oz) 07/11/2023 111.6 kg (246 lb) PHYSICAL EXAMINATION: General appearance: Well appearing, alert, in no acute distress, well-hydrated, well nourished. Skin: Skin color, texture, turgor normal, no suspicious rashes or lesions Head: Normocephalic, no masses, lesions, tenderness or abnormalities Eyes: Anicteric sclera. Pupils are equally round and reactive to light. Extraocular movements are intact. Lungs: Lungs clear to auscultation. No wheezing, rhonchi, rales Heart: RRR without murmur, gallop, or rubs. No ectopy Abdomen: Normal abdominal exam, Abdomen soft, non-tender. Bowel sounds normal. No masses, organomegaly Extremities: No deformities, edema, skin discoloration, clubbing or cyanosis. Good capillary refill. Skin tear is healing well. ASSESSMENT/PLAN: 1. Sepsis, due to unspecified organism, unspecified whether acute organ dysfunction present (HCC) - ICD9: 038.9, 995.91, ICD10: A41.9 (primary diagnosis) - finish antibiotics. Recheck urine if symptoms recur. - CBC + DIFF - BASIC METABOLIC PNL 2. Essential hypertension - ICD9: 401.9, ICD10: I10 - Controlled - Continue current medications 3. Other hyperlipidemia - ICD9: 272.4, ICD10: E78.49 - stable. 4. Urinary tract infection without hematuria, site unspecified - ICD9: 599.0, ICD10: N39.0 - much improved. - CBC + DIFF - BASIC METABOLIC PNL Bal Denise MD Keep next appt or call prn documented in this encounter [facility] 07-30-2023 Miscellaneous Notes Patient seen in office on 07/16/2023. Loyda Moffett RN Call placed to patient and spoke to daughter (Antonella). She reports that patient does take the gabapentin and it is helpful at the 300 mg dose but patient tries to take it only once daily because it makes her so drowsy. She will take it twice a day on the days when first dose is not as effective. Loyda Moffett RN Please ask if medication is helping, what level of symptoms? The following approved medication requests have been transmitted electronically. Requested Prescriptions Signed Prescriptions Disp Refills gabapentin (NEURONTIN) 300 mg capsule 90 capsule 2 Sig: Take 1 capsule by mouth three times a day for 90 days. Authorizing Provider: Yanni DAVIDSON Greg Barton, PA-C Patient has been identified by name and date of : Yes, Provider Loyda Moffett RN Date 07/01/2023 Time 10:49 am Pharmacy phones for refill(s): Requested Prescriptions Pending Prescriptions Disp Refills gabapentin (NEURONTIN) 100 mg capsule 270 capsule 0 Sig: Take 3 capsules by mouth three times a day for 90 days. Prescription request is for month of July. Date of last office visit in primary care: 06/18/2023 Date of next office visit in primary care: 07/16/2023 Last 2 Encounter Wt Readings: Date: Wt: 06/18/2023 110.2 kg (243 lb) 06/14/2023 108.4 kg (239 lb) Previous labs/tests for medication: Blood Pressure: BUN (mg/dL) Date Value 04/12/2023 13 10/12/2021 17 Sodium (mmol/L) Date Value 04/12/2023 143 10/12/2021 141 Last 1 Encounter BP Readings: Date: BP: 06/18/2023 120/78 Liver Function: ALT (U/L) Date Value 04/12/2023 22 10/12/2021 22 AST (U/L) Date Value 04/12/2023 23 10/12/2021 22 Please advise. Thank you. Loyda Moffett RN. documented in this encounter [facility] 07-29-2023 Miscellaneous Notes Patient has been identified by name and date of : Yes, Provider Dr Denise Date 07/29/23 Time 1504. Pharmacy phones for refill(s): Requested Prescriptions Pending Prescriptions Disp Refills ferrous sulfate 325 mg (65 mg iron) tablet 60 tablet 5 Sig: Take 1 tablet by mouth two times a day with meals. pantoprazole DR (PROTONIX) 40 mg tablet 180 tablet 1 Sig: Take 1 tablet by mouth two times a day. Date of last office visit in primary care: 07/23/2023 Date of next office visit in primary care: 08/02/2023 Last 2 Encounter Wt Readings: Date: Wt: 07/23/2023 106.6 kg (235 lb) 07/16/2023 106.7 kg (235 lb 3.2 oz) Previous labs/tests for medication: Blood Pressure: BUN (mg/dL) Date Value 07/23/2023 14 10/12/2021 17 Sodium (mmol/L) Date Value 07/23/2023 140 10/12/2021 141 Last 1 Encounter BP Readings: Date: BP: 07/23/2023 137/83 Liver Function: ALT (U/L) Date Value 04/12/2023 22 10/12/2021 22 AST (U/L) Date Value 04/12/2023 23 10/12/2021 22 Please advise. Thank you. Maria Guadalupe Delgado RN. documented in this encounter [facility] 07-26-2023 Note HNO ID: [id number] Author: Edwina Orosco APRN.RAYNE Service: ? Author Type: Nurse Practitioner Type: Progress Notes Filed: 07/26/2023 3:54 PM Note Text: [facility] Today's Date: 07/26/2023 Last Visit: N/A Name: Tanya Sanchez : 1945 Purpose: New Patient Consultation Chief complaint: back and left hip pain with radiation down her left leg to her toes Referring Clinician: Yanni Davidson Pertinent Past Medical History: Seizure Disorder, Coronary Artery Disease (CAD), Hypertension (HTN), Atrial Fibrillation (with or without Atrial Flutter), , Gastroesophageal Reflux Disease (GERD), Chronic Kidney Disease (CKD) - Stage 3 , Hypothyroidism, , Anxiety (TERRA)HLD Pertinent Past Surgeries: none History of Present Illness (HPI): 07/26/2023 - Initial HPI (Obtained by Edwina Orosco CNP). DURATION AND ONSET: The pain complaint has been present for approximately years. The pain had a sudden onset. The mechanism of injury is known and is as follows: fell down a corn crib and she had pain after PRIOR TREATMENTS: Medications, Physical Therapy, Chiropractic Treatment Pain Description: Timing: intermittant Character: Burning Primary Location: low back into left hip Radiation: radiation down her left leg to her toes Exacerbating factors: walking Relieving factors: sitting Interferes with: physical activity, work, and household cleaning The patient denies red flags Patient is here with her daughter today complaining of back pain patient stating the pain is mostly on the left side in the lower back going into her hip and down her left leg to her toes. Patient states she has been to physical therapy and same medications and chiropractic treatments without help. Patient states she has tried and failed different medications for pain during negative side effects. Patient states she has taken tramadol which has helped with her pain.Patient was sent here to see what potentially can be done for her back pain. Patient has not had recent a recent MRI.Patient is here with her daughter and her daughter is helping with her explanation of pain. Current Pain Medications:none Neuropathics: none NSAIDS: Muscle Relaxants: Topicals: Other Prescription or OTC Pain Medications: Opioids (when applicable): Date last refilled: Quantity supplied: Quantity remaining: Last taken: Anti-depressants or Mood-Stabilizers: Buspar, Zoloft Anti-Coagulants: None Current Therapies Attended: No Current Therapies Treatment History: PAIN PROCEDURES: DATE PROCEDURE IMPROVEMENT To date, no interventional pain management procedures performed at this practice. MEDICATIONS Taken TO DATE (for the chief complaint(s)): Neuropathics: Neurontin (Gabapentin): Discontinued - Intolerance: dizzy NSAIDS: no nsaids on a blood thinner Muscle Relaxants: tizanidine beneficial Topicals: None Other Prescription or OTC Pain Medications: Tylenol (Acetaminophen): Discontinued - No Benefit Opioids: Tramadol: Discontinued - No Benefit Past Therapies Attended: Physical TherapyTreatment dates: Between 04/02/2023 and 04/29/2023. Data Reviewed Today: SOCIAL HISTORY No social history on file. Allergies: ALLERGIES Allergen Reactions Novocain [Procaine * Other: See Comments Blood pressure rises INTAKE PAIN ASSESSMENT 07/23/2023 07/26/2023 Are you having pain associated with your visit today? No Yes, Provider notified Pain Scales - Verbal (Numeric Rating or Visual Analog Scale) Pain Level - 10 Pain Location - Leg-Left Description - Burning Duration Amount of Time - - Duration Units - Months Frequency - Intermittent Intervention/Comfort measure - Medication;Reposition;Relaxation; Pillow support;Heat;Cold Comments - - Pain Assessment - - Compliance: PDMP website checked and validated on 07/26/2023 by Edwina Orosco APRN.HERPETOLOGIST All prescriptions have been APPROPRIATELY filled. No suspicious activity was identified. Recent Drug screens: No flowsheet data found. TERRA-7 Anxiety Score 10 Completed Date 07/26/2023 (All drug screens are appropriate unless indicated otherwise) Risk Assessment: TERRA-7: TERRA - 7 SCORES 07/26/2023 TERRA-7 Score 10 (0-4) minimal anxiety, (5-9) mild anxiety, (10-14) moderate anxiety, (15-21) severe anxiety PHQ-9: PHQ-9 01/10/2022 Score 8 (0-4) minimal depression, (5-9) mild depression, (10-14) moderate depression, (15-19) moderately severe depression, (20-27) severe depression Diagnostic Studies: Relevant Imagin07/16/2023 11:32 AM - Radiology, [facility] In Impression IMPRESSION: No acute fracture. Degenerative disease of the lumbar spine. Instantizer Operator: JESUS Transcribe (more content not included)... [facility] 07-26-2023 Miscellaneous Notes Patients daughter informed rx was sent to pharmacy. Shazia Marie The following approved medication requests have been transmitted electronically. Requested Prescriptions Signed Prescriptions Disp Refills traMADol (ULTRAM) 50 mg tablet 60 tablet 0 Sig: Take 1 tablet by mouth every 6 hours as needed for pain (on as needed for severe pain). Authorizing Provider: Yanni DAVIDSON PA-C Patient's daughter Antonella azevedo. States patient was seen by Pain Mgmt today, as referred by Jostin Davidson. Daughter states pain mgmt provider does not order any pain medication at first visit and was advised to contact Jostin Davidson for request for more tramadol for patient. Daughter asking if Jostin will reorder tramadol for patient to last until next pain mgmt appt on 09/06/23? Please call daughter Antonella with update. Becki Strickland RN documented in this encounter [facility] 07-26-2023 Note HNO ID: [id number] Author: Jorgito Zelaya LPN Service: ? Author Type: LICENSED NURSE Type: Progress Notes Filed: 07/26/2023 3:54 PM Note Text: Review of Systems Constitutional: Positive for activity change and chills. Negative for fever and unexpected weight change. Gastrointestinal: Negative for bowel retention or incontinence Genitourinary: Negative for difficulty urinating. Negative for bladder retention or incontinence Musculoskeletal: Positive for back pain, gait problem, neck pain and neck stiffness. Negative for arthralgias, joint swelling and myalgias. Neurological: Negative for weakness, numbness and headaches. Psychiatric/Behavioral: Positive for dysphoric mood. Negative for sleep disturbance and suicidal ideas. The patient is nervous/anxious. [facility] 07-26-2023 History of Present illness Narrative Images from the original note were not included. [facility] Today's Date: 07/26/2023 Last Visit: N/A Name: Tanya Sanchez : 1945 Purpose: New Patient Consultation Chief complaint: back and left hip pain with radiation down her left leg to her toes Referring Clinician: Yanni Davidson Pertinent Past Medical History: Seizure Disorder, Coronary Artery Disease (CAD), Hypertension (HTN), Atrial Fibrillation (with or without Atrial Flutter), , Gastroesophageal Reflux Disease (GERD), Chronic Kidney Disease (CKD) - Stage 3 , Hypothyroidism, , Anxiety (TERRA)HLD Pertinent Past Surgeries: none History of Present Illness (HPI): 07/26/2023 - Initial HPI (Obtained by Edwina Orosco CNP). DURATION AND ONSET: The pain complaint has been present for approximately years. The pain had a sudden onset. The mechanism of injury is known and is as follows: fell down a corn crib and she had pain after PRIOR TREATMENTS: Medications, Physical Therapy, Chiropractic Treatment Pain Description: Timing: intermittant Character: Burning Primary Location: low back into left hip Radiation: radiation down her left leg to her toes Exacerbating factors: walking Relieving factors: sitting Interferes with: physical activity, work, and household cleaning The patient denies red flags Patient is here with her daughter today complaining of back pain patient stating the pain is mostly on the left side in the lower back going into her hip and down her left leg to her toes. Patient states she has been to physical therapy and same medications and chiropractic treatments without help. Patient states she has tried and failed different medications for pain during negative side effects. Patient states she has taken tramadol which has helped with her pain.Patient was sent here to see what potentially can be done for her back pain. Patient has not had recent a recent MRI.Patient is here with her daughter and her daughter is helping with her explanation of pain. Current Pain Medications:none Neuropathics: none NSAIDS: Muscle Relaxants: Topicals: Other Prescription or OTC Pain Medications: Opioids (when applicable): Date last refilled: Quantity supplied: Quantity remaining: Last taken: Anti-depressants or Mood-Stabilizers: Buspar, Zoloft Anti-Coagulants: None Current Therapies Attended: No Current Therapies Treatment History: PAIN PROCEDURES: DATE PROCEDURE IMPROVEMENT To date, no interventional pain management procedures performed at this practice. MEDICATIONS Taken TO DATE (for the chief complaint(s)): Neuropathics: Neurontin (Gabapentin): Discontinued - Intolerance: dizzy NSAIDS: no nsaids on a blood thinner Muscle Relaxants: tizanidine beneficial Topicals: None Other Prescription or OTC Pain Medications: Tylenol (Acetaminophen): Discontinued - No Benefit Opioids: Tramadol: Discontinued - No Benefit Past Therapies Attended: Physical TherapyTreatment dates: Between 04/02/2023 and 04/29/2023. Data Reviewed Today: SOCIAL HISTORY No social history on file. Allergies: ALLERGIES Allergen Reactions Novocain [Procaine * Other: See Comments Blood pressure rises INTAKE PAIN ASSESSMENT 07/23/2023 07/26/2023 Are you having pain associated with your visit today? No Yes, Provider notified Pain Scales - Verbal (Numeric Rating or Visual Analog Scale) Pain Level - 10 Pain Location - Leg-Left Description - Burning Duration Amount of Time - - Duration Units - Months Frequency - Intermittent Intervention/Comfort measure - Medication;Reposition;Relaxation; Pillow support;Heat;Cold Comments - - Pain Assessment - - Compliance: PDMP website checked and validated on 07/26/2023 by Edwina Orosco APRN.HERPETOLOGIST All prescriptions have been APPROPRIATELY filled. No suspicious activity was identified. Recent Drug screens: No flowsheet data found. TERRA-7 Anxiety Score 10 Completed Date 07/26/2023 (All drug screens are appropriate unless indicated otherwise) Risk Assessment: TERRA-7: TERRA - 7 SCORES 07/26/2023 TERRA-7 Score 10 (0-4) minimal anxiety, (5-9) mild anxiety, (10-14) moderate anxiety, (15-21) severe anxiety PHQ-9: PHQ-9 01/10/2022 Score 8 (0-4) minimal depression, (5-9) mild depression, (10-14) moderate depression, (15-19) moderately severe depression, (20-27) severe depression Diagnostic Studies: Relevant Imagin07/16/2023 11:32 AM - Radiology, [facility] In Impression IMPRESSION: No acute fracture. Degenerative disease of the lumbar spine. Instantizer Operator: JESUS Transcribe Date/Time: Jul 16 2023 11:28A Dictated by : DEJUAN QUIROS MD This examination was interpreted and the report reviewed and electronically signed by: DEJUAN QUIROS MD on Jul 16 2023 11:29AM EST Results-Findings * * *Final Report* * * DATE OF EXAM: Jul 11 2023 6:13PM WOX [id number] - XR LUMBAR 3V AP/LAT/L5-S1 / PROCEDURE REASON: multiple diagnoses * * * * Physician Interpretation * * * * X-ray lumbosacral spine, AP, lateral and L5-S1 views Indication: Chronic low back pain Comparison: X-ray lumbar spine 02/20/2023 Counting reference: Lumbosacral junction. For the purposes of this report, L5S1 is considered the last lumbar type disc space and L4-5 is considered the level of the iliac crest. Generalized osteopenia. No acute fracture. Curvature of the lower thoracic spine towards the right. Minimal anterolisthesis of L4 on L5. There is degenerative disc disease at multiple levels of the lumbar spine with endplate sclerosis, intervertebral disc space narrowing and osteophyte formation. Sacroiliac degenerative disease, right greater than left. Vascular calcifications are noted. 06/22/2023 7:29 AM - Radiology, [facility] In Impression IMPRESSION: Degenerative changes Instantizer Operator: JESUS Transcribe Date/Time: Jun 22 2023 7:24A Dictated by : ANNELISE HENDERSON MD This examination was interpreted and the report reviewed and electronically signed by: ANNELISE HENDERSON MD on Jun 22 2023 7:27AM EST Results-Findings * * *Final Report* * * DATE OF EXAM: Jun 18 2023 5:09PM WOX [id number] - XR HIP SOLOMON 5V PEL+ AP/LAT EA HIP / PROCEDURE REASON: multiple diagnoses * * * * Physician Interpretation * * * * PROCEDURE: Pelvis and bilateral hips INDICATION: Chronic left hip pain .Chronic posterior left hip pain that has increased over time without injury TECHNIQUE: XR HIP SOLOMON 5V PEL+ AP/LAT EA HIP COMPARISON: None FINDINGS: Moderate bilateral hip joint space narrowing with minimal acetabular spur formation. Femoral heads are smooth. Bilateral SI joint osteoarthrosis, right greater than left and degenerative spurring at the symphysis pubis. Degenerative change at the lumbosacral junction. No fracture or dislocation. Electrodiagnostic Study (EMG): None Recent Labs: Creatinine Date Value Ref Range Status 07/23/2023 1.29 (H) 0.58 - 0.96 mg/dL Final No results found for: EGFR No results found for: PCGLUCOSE WBC Date Value Ref Range Status 07/23/2023 6.32 3.70 - 11.00 k/uL Final Hemoglobin Date Value Ref Range Status 07/23/2023 13.3 11.5 - 15.5 g/dL Final Hematocrit Date Value Ref Range Status 07/23/2023 39.3 36.0 - 46.0 % Final Platelet Count Date Value Ref Range Status 07/23/2023 193 150 - 400 k/uL Final Current Medications, Past Medical History, Past Surgical History, Family History, Social History and Review of Systems: On today's date, noted above, I have confirmed and edited as necessary, the PFSH and ROS obtained by others. Physical Exam: 07/26/23 1354 Pulse: 85 Resp: 20 SpO2: 99% Physical Exam Vitals reviewed. Constitutional: General: She is not in acute distress. Appearance: She is not ill-appearing. HENT: Head: Normocephalic and atraumatic. Eyes: Conjunctiva/sclera: Conjunctivae normal. Cardiovascular: Pulses: Normal pulses. Pulmonary: Effort: Pulmonary effort is normal. No respiratory distress. Musculoskeletal: Thoracic back: No tenderness or bony tenderness. No scoliosis. Lumbar back: Tenderness present. Decreased range of motion. Negative right straight leg raise test and negative left straight leg raise test. No scoliosis. Comments: Hip Flexion: Right- 5/5; Left- 5/5 Knee Extension: Right- 5/5; Left- 5/5 Dorsiflexion: Right- 5/5; Left- 5/5 Plantarflexion: Right- 5/5; Left- 5/5 Special Tests- Facet Loading: Right-Negative; Left Negative SI Compression:Negative MAXIMO:Right-Negative; Left Positive Skin: General: Skin is warm and dry. Neurological: Mental Status: She is alert and oriented to person, place, and time. Gait: Gait abnormal (antalgic). Tandem walk normal. Deep Tendon Reflexes: Reflexes are normal and symmetric. Reflex Scores: Patellar reflexes are 2+ on the right side and 2+ on the left side. Achilles reflexes are 2+ on the right side and 2+ on the left side. Psychiatric: Mood and Affect: Mood and affect normal. Behavior: Behavior normal. Behavior is cooperative. Comments: A&O X3 when asked, pt was slow to respond and had difficult time answering questions at times. IMPRESSION: 78 year old female presents with complaint(s) of Low back pain. Patient stating that tramadol was helping with the pain inform patient we do not prescribe opioids in the first visit and she will call her PCP for this medication. Will obtain an MRI of the lumbar spine as patient is complaining of radicular symptoms and at this point we do not have one available to see if there is potentially an injection Diagnoses: (M54.42, M54.41, G89.29) Chronic bilateral low back pain with bilateral sciatica PLAN: Tanya Sanchez would benefit from the following to reach personal goals for decreasing pain, improving function and work participation, and/or improving quality of life: Medications: No Changes - Continue Current Medications Interventional Procedures: NONE Studies: None MRI: Lumbar Spine Functional Protestant: NONE Referrals: No additional considerations at present Follow-up: 6 weeks with Physician or [facility] In Person Depending on response to the above plan, consider: TBD Patient Education, Compliance and Clinic Policies Reviewed and/or Discussed Today: None Attribution: In addition to reviewing the information noted above, some elements copied from my most recent clinical note(s), including the physical exam (completed in entirety today), and the impression and plan sections, have been updated where appropriate. All reflect current medical decision making from today's date. Edwina Orosco APRN.HERPETOLOGIST Pain [facility] Review of Systems Constitutional: Positive for activity change and chills. Negative for fever and unexpected weight change. Gastrointestinal: Negative for bowel retention or incontinence Genitourinary: Negative for difficulty urinating. Negative for bladder retention or incontinence Musculoskeletal: Positive for back pain, gait problem, neck pain and neck stiffness. Negative for arthralgias, joint swelling and myalgias. Neurological: Negative for weakness, numbness and headaches. Psychiatric/Behavioral: Positive for dysphoric mood. Negative for sleep disturbance and suicidal ideas. The patient is nervous/anxious. documented in this encounter [facility] 07-23-[address] [facility] 07-23-2023 Instructions Bal Denise MD - 07/23/2023 2:48 PM EST Stop potassium as well as furosemide and lisinopril. Check labs today. Call if any worsening shortness of breath or swelling. documented in this encounter [facility] 07-23-2023 History of Present illness Narrative Patient presents with: Hospital F/U HPI: Patient presents today for office visit for hospital follow up. Here today with [id number] Rosmery. [facility] 07/16-07/17. Had syncope. Saw Jostin Davidson on 07/16/23 for follow up. While here expressed that she passed out that morning and didn't remember. EMS was called and she was transported to [facility] ER. Limited records are available. We do not have a discharge summary yet etc. Apparently was orthostatic. Per family, lasix and lisinopril were stopped. She is on potassium still and discussed that I worry about it being too high. Had reported to staff she has not been eating or drinking well. Still fatigued. No nausea or vomiting. Is eating and drinking better. Weight is slightly down from last time. No fever. No bowel changes. No dysuria or cough. No chest pain or palpitations. Skin tear is about half the size it was. Is much improved from previous. No signs of infection. Brain CT showed chronic involutional changes of the brain. MEDICATIONS: Current Outpatient Medications Medication Sig levothyroxine (SYNTHROID) 100 mcg tablet Take 1 tablet by mouth daily before breakfast. For thyroid. nystatin (MYCOSTATIN) cream Apply 1 application to affected area twice daily. budesonide, enteric coated (ENTOCORT EC) 3 mg 24 hr capsule Take 3 capsules by mouth once daily. apixaban (ELIQUIS) 5 mg tab(s) Take 1 tablet by mouth twice daily. busPIRone (BUSPAR) 5 mg tablet Take 1 tablet by mouth three times daily. ferrous sulfate 325 mg (65 mg iron) tablet Take 1 tablet by mouth twice daily with meals. pantoprazole DR (PROTONIX) 40 mg tablet Take 1 tablet by mouth twice daily. potassium chloride (K-TAB) 10 mEq tablet Take 1 tablet by mouth daily with breakfast. sertraline (ZOLOFT) 100 mg tablet Take 1 tablet by mouth once daily. famotidine (PEPCID) 20 mg tablet Take 1 tablet by mouth at bedtime as needed. furosemide (LASIX) 40 mg tablet MELATONIN ORAL Take 10 mg by mouth. atorvastatin (LIPITOR) 20 mg tablet Take 1 tablet by mouth once daily. For cholesterol. lisinopril (PRINIVIL) 10 mg tablet Take 0.5 tablets by mouth once daily. Per Dr. Funk nitroglycerin sublingual (NITROQUICK) 0.4 mg SL tablet Dissolve 1 tablet under the tongue every 5 minutes as needed. gabapentin (NEURONTIN) 100 mg capsule Take 2 capsules by mouth two times a day for 90 days. (Patient not taking: Reported on 07/16/2023) No current facility-administered medications for this visit. ALLERGIES: ALLERGIES Allergen Reactions Novocain [Procaine * Other: See Comments Blood pressure rises PAST MEDICAL HISTORY Diagnosis Date Alzheimer's dementia without behavioral disturbance (HCC) Dermatitis GERD (gastroesophageal reflux disease) Hypothyroidism Pseudoseizures Thyroid condition PAST SURGICAL HISTORY Procedure Laterality Date COLONOSCOPY FLX DX W/COLLJ SPEC WHEN PFRMD 11/16/2019 Colonoscopy EGD N/A 08/27/2016 ESOPHAGOGASTRODUODENOSCOPY TRANSORAL DIAGNOSTIC 11/16/2019 EGD PAST SURGICAL HISTORY OF 2008 coronary artery bypass two FAMILY HISTORY Adopted: Yes Problem Relation Age of Onset other (alcholoism) Father Social History Tobacco Use Smoking status: Never Smokeless tobacco: Never Vaping Use Vaping Use: Never used Substance Use Topics Alcohol use: No Drug use: No Reviewed current medications, allergies, past medical history, surgical history, family history and social history today. REVIEW OF SYSTEMS All other reviewed and negative other than HPI. VITALS: BP 137/83 Pulse 70 Ht 165.1 cm (5' 5 ) Wt 106.6 kg (235 lb) BMI 39.11 kg/m Last 4 Encounter Wt Readings: Date: Wt: 07/16/2023 106.7 kg (235 lb 3.2 oz) 07/11/2023 111.6 kg (246 lb) 06/18/2023 110.2 kg (243 lb) 06/14/2023 108.4 kg (239 lb) PHYSICAL EXAMINATION: General appearance: Well appearing, alert, in no acute distress, well-hydrated, well nourished. Skin: skin tear appears much smaller than described. They feel it looks better also. No signs of infeciton. Head: Normocephalic, no masses, lesions, tenderness or abnormalities Lungs: Lungs clear to auscultation. No wheezing, rhonchi, rales Heart: RRR without murmur, gallop, or rubs. No ectopy Abdomen: Normal abdominal exam, Abdomen soft, non-tender. Bowel sounds normal. No masses, organomegaly Extremities: No deformities, edema, skin discoloration, clubbing or cyanosis. Good capillary refill. Musculoskeletal: No joint swelling, deformity, or tenderness Peripheral pulses: Normal ASSESSMENT/PLAN: 1. Syncope, unspecified syncope type - ICD9: 780.2, ICD10: R55 (primary diagnosis) - call if recurs. Continue off meds. Stop potassium since off of lasix. Follow edema and watch for fluid overload. Follow bp. Check labs. Get copy of discharge summary. - CBC + DIFF - BASIC METABOLIC PNL 2. Essential hypertension - ICD9: 401.9, ICD10: I10 - Controlled - Continue current medications 3. Atrial fibrillation, new onset (HCC) - ICD9: 427.31, ICD10: I48.91 - stable. 4. Coronary artery disease involving [place] coronary artery of [place] heart without angina pectoris - ICD9: 414.01, ICD10: I25.10 - stable. 5. Paroxysmal atrial fibrillation (HCC) - ICD9: 427.31, ICD10: I48.0 - stable. 6. Abdominal aortic aneurysm (AAA) without rupture, unspecified part (HCC) - ICD9: 441.4, ICD10: I71.40 - stable. 7. Orthostasis - ICD9: 458.0, ICD10: I95.1 - symptomatically improved. - CBC + DIFF - BASIC METABOLIC PNL 8. Noninfected skin tear of right lower extremity, subsequent encounter - ICD9: V58.89, ICD10: S81.811D - healing. Will follow. Bal Denise MD RTO four weeks. documented in this encounter [facility] 07-18-[address] [facility] 07-18-2023 Miscellaneous Notes Appointment that is scheduled is fine. Pt's daughter, Antonella advised of results and instructions. She verbalizes understanding. Pt was to f/u with Jostin in 5 days to recheck leg. Pt was sent to ER form ov and kept in [facility] overnight. Scheduled pt with Dr Denise for Hosp f/u and to recheck leg. Did not find any sooner appointments with Jostin. Please advise if anything needs scheduled differently. Rehana Snowden LPN Left message for patient to return call. Edwina Martino Ma ----- Message from Yanni Davidson PA-C sent at 07/17/2023 1:04 PM EST ----- Please advise patient has curvature of the lower thoracic spine to the right, some slippage of L4 on L5, disc space narrowing, osteophyte formation, sacroiliac degenerative disease making it hard for her to walk, right side greater than left. Patient has consult with pain management I think is probably the best direction. Thanks, Jostin Davidson PA-C documented in this encounter [facility] 07-18-2023 History of Present illness Narrative TRANSITION CARE MANAGEMENT (TCM) INITIAL CONTACT Provider Action/FYI: Recheck right lower leg also Initial contact with patient post discharge, spoke to daughterAntonella. Patient identified by name and . TRANSITION CARE MANAGEMENT: Date of Outreach: 07/18/2023 Outreach Attempt 1: Contact Made Date of Discharge 07/17/2023 Some recent data might be hidden SUMMARY: -Pt discharged from [facility] on 07/17/23. -Follow up appointment on 07/23/23. -Medication review done yes. -Admitted for: Syncope,orthostatic hypotension CONCERNS: None verbalized NEW MEDICATIONS: none MEDS HELD/DISCONTINUED: Holding lisinopril 10 mg and furosemide 40 mg BRIEF HOSPITAL COURSE: documented in this encounter [facility] 07-16-[address] [facility] 07-16-2023 History of Present illness Narrative 78 year old female with c/o her for follow up on wound care with skin tea right anterior calf with duoderm intact. Patient identifies new wound on left posterior calf which occurred this morning. She was checking outdoor temperature and got lightheaded, walked to cough and states she felt weak slid down the cough to the floor. Woke up what she feels was a short time later. No tongue biting, incontinence. Unwitnessed incident. Denies headache, visual disturbance, chest pain, palpitations. Scraped her left lateral leg on a coffee table. States she hasn't had much trouble with right calf wound. HISTORIES FAMILY HISTORY Adopted: Yes Problem Relation Age of Onset other (alcholoism) Father PAST MEDICAL HISTORY Diagnosis Date Alzheimer's dementia without behavioral disturbance (HCC) Dermatitis GERD (gastroesophageal reflux disease) Hypothyroidism Pseudoseizures Thyroid condition PAST SURGICAL HISTORY Procedure Laterality Date COLONOSCOPY FLX DX W/COLLJ SPEC WHEN PFRMD 11/16/2019 Colonoscopy EGD N/A 08/27/2016 ESOPHAGOGASTRODUODENOSCOPY TRANSORAL DIAGNOSTIC 11/16/2019 EGD PAST SURGICAL HISTORY OF 2008 coronary artery bypass two Social History Tobacco Use Smoking status: Never Smokeless tobacco: Never Vaping Use Vaping Use: Never used Substance Use Topics Alcohol use: No Drug use: No ACTIVE PROBLEM LIST Psychogenic Nonepileptic Seizure Hypothyroidism Gerd (Gastroesophageal Reflux Disease) Alzheimer's Dementia Without Behavioral Disturbance (Hcc) Carotid Stenosis, Asymptomatic Coronary Artery Disease Involving [place] Coronary Artery of [place] Heart Without Angina Pectoris Paroxysmal Atrial Fibrillation (Hcc) Ckd (Chronic Kidney Disease) Stage 3, Gfr 30-59 Ml/Min ([facility]) Morbid Obesity With Body Mass Index (Bmi) of 40.0 to 44.9 in Adult ([facility]) Abdominal Aortic Aneurysm (Aaa) Without Rupture ([facility]) Fatty Liver Bpv (Benign Positional Vertigo), Unspecified Laterality Collagenous Colitis Other Hyperlipidemia Essential Hypertension Chronic Depression Hypertensive Kidney Disease With Stage 3 Chronic Kidney Disease ([facility]) Abnormal Cardiovascular Stress Test Anemia, Unspecified Anterior Epistaxis Anxiety Cellulitis of Right Lower Limb Cellulitis, Unspecified Coagulation Defect, Unspecified (Hcc) Diaphragmatic Hernia Without Obstruction Or Gangrene Hiatal Hernia History of Atrial Fibrillation History of Coronary Artery Bypass Surgery Iron Deficiency 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 28 tablet 0 gabapentin (NEURONTIN) 100 mg capsule Take 2 capsules by mouth two times a day for 90 days. 120 capsule 2 levothyroxine (SYNTHROID) 100 mcg tablet Take 1 tablet by mouth daily before breakfast. For thyroid. 90 tablet 3 nystatin (MYCOSTATIN) cream Apply 1 application to affected area twice daily. 45 g 0 budesonide, enteric coated (ENTOCORT EC) 3 mg 24 hr capsule Take 3 capsules by mouth once daily. 90 capsule 5 apixaban (ELIQUIS) 5 mg tab(s) Take 1 tablet by mouth twice daily. 60 tablet 5 busPIRone (BUSPAR) 5 mg tablet Take 1 tablet by mouth three times daily. 90 tablet 11 ferrous sulfate 325 mg (65 mg iron) tablet Take 1 tablet by mouth twice daily with meals. [address] (PROTONIX) 40 mg tablet Take 1 tablet by mouth twice daily. 180 tablet 1 potassium chloride (K-TAB) 10 mEq tablet Take 1 tablet by mouth daily with breakfast. 30 tablet 11 sertraline (ZOLOFT) 100 mg tablet Take 1 tablet by mouth once daily. 90 tablet 3 famotidine (PEPCID) 20 mg tablet Take 1 tablet by mouth at bedtime as needed. 90 tablet 2 furosemide (LASIX) 40 mg tablet MELATONIN ORAL Take 10 mg by mouth. atorvastatin (LIPITOR) 20 mg tablet Take 1 tablet by mouth once daily. For cholesterol. 30 tablet 2 lisinopril (PRINIVIL) 10 mg tablet Take 0.5 tablets by mouth once daily. Per Dr. Funk nitroglycerin sublingual (NITROQUICK) 0.4 mg SL tablet Dissolve 1 tablet under the tongue every 5 minutes as needed. 1 Bottle of 25 1 No current facility-administered medications for this visit. BP Controlled (<130/80) Never done RSV Vaccine(1 - 1-dose 60+ series) Never done Bone Density Screening Never done EXAM: BP 95/60 Pulse 75 Ht 165.1 cm (5' 5 ) Wt 106.7 kg (235 lb 3.2 oz) SpO2 94% BMI 39.14 kg/m BP w/Orthostatic Vitals Date and Time Orthostatic BP Orthostatic Pulse BP Pulse BP Position BP Site BP Cuff Size 07/16/23 1004 -- -- 95/60 75 -- -- -- Got weak with standing, sat on a chair. BP on my check was 70/52, HR 84, she was pale. Assisted back on table and layed supine. EKG: NSR without injury pattern Prior to this exam as follows. Pleasant obese adult woman in no acute distress. Alert and oriented all spheres. Normal affect and cognition. Speech normal. No deficits to learning or comprehension. HEENT: NCAT. PERRLA. No scleral icterus or conjunctival injection. TM's clear. Nose and oropharynx free from injection or lesion. Oral membranes moist and pink. No cervical lymph nodes. Thyroid non-tender, no masses, or enlargement. Carotids pulses 2+/4+ without bruits. No JVD with HOB at 30 degrees. Head nontender. Neck with full ROM, non-tender on palpation neck, uppper chest, posterior chest. No pain with extemities. Skin warm, dry, pink to lips and nailbeds. Normal turgor. Respirations regular and unlabored. Chest is normal shape. Lungs are clear to all blas with good air exchange through out. HRRR without murmur or gallop. No lifts, heaves, or rubs. Extrem: no clubbing or cyanosis. Edema: 0-1/4+, doughy. Wound is improving, remains beefy red, seous discharge. There was a little boogie tissue on lateral edge that pulled off with forceps. Extremities are warm and pink with prompt capillary refill. Left lateral ankle with superficial small abrasion cleansed with sterile saline and bacitracin and non-adherent dressing applied. ASSESSMENT/PLAN: 1. Syncope and collapse - ICD9: 780.2, ICD10: R55 (primary diagnosis) Squad was called and transported to ED, report called to Dr. Micah Montiel. 2. Hypotension, unspecified hypotension type - ICD9: 458.9, ICD10: I95.9 Etiology unclear. 3. Skin tear of right lower leg without complication, subsequent encounter - ICD9: V58.89, 891.0, ICD10: S81.812D Debrided tissue, new duoderm applied. Yanni Davidson PA-C documented in this encounter [facility] 07-11-[address] [facility] 07-11-[address] [facility] 07-11-2023 Instructions Yanni Davidson PA-C - 07/11/2023 5:44 PM EDT Tramadol as directed per prescription for pain being careful to limit to 1-2 doses a day unless it is more severe pain. Do not drive or operate dangerous machinery while on this medication. It may cause drowsiness or impair judgment and cause increased risk for falls. This medication may be habit forming if used regularly, and may cause drowsiness, so use caution. This medication may cause constipation so increase fiber and exercise if possible. MiraLax if needed with 8oz of water daily as needed. Stimulant laxatives such as pericolace or Sennekot OTC may help if needed but should not be used over long periods. Arthritis tylenol at maximum dose is also acceptable with this medication. documented in this encounter [facility] 07-11-2023 History of Present illness Narrative 78 year old female with c/o left leg pain Gabapentin made her dizzy at 200mg, couldn't tolerate. Daughter got Life Alert for her . Gabapentin helped her sleep at night. During the day instable Very painful, not sitting but with walking. Daughter states Tizanidine did help some Taking Tylenol arthritis doesn't seems to hlp much. From last visit: Ongoing over last year, Sharp pain, started with sciatic. Constant 10/10 can hardly get out of bed States left leg is longer. Having trouble walking to the bathroom. Daughter says debilitating pain taking ibuprofen 3 tabs twice a day Also taking Tylenol too. Dr. Denise started on tizanidine Notes some bowel incontinence when she can't get to [place]. Has been in PT in past without any improvement. 02/20/2023 XR LS spine: COMPARED TO THE PREVIOUS EXAMINATION THE L5/S1 DISC SPACE IS DECREASED IN SIZE WHICH REMAIN PARTLY POSITIONAL. 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 FACET DEGENERATIVE CHANGES AND LUMBAR LORDOSIS IS UNCHANGED. NO CHANGE IN FUSIFORM ABDOMINAL AORTIC ANEURYSM AT THE L4 LEVEL. 01/17/2023 LS spine XR IMPRESSION: DEGENERATIVE DISC DISEASE AT T12/L1 AND L1/L2. GRADE 1 ANTEROLISTHESIS OF L4 ON L5 AND L5-S1 WITH FACET DEGENERATIVE CHANGES AT THESE LEVELS. ABDOMINAL AORTIC ECTASIA WITH FOCAL ANEURYSMAL DILATATION. 07/05/2023 MRI brain: * No evidence of an acute intracranial process or intracranial mass. * Moderate generalized volume loss. * Hippocampal volumes at the first percentile when compared to age matched normal controls by quantitative analysis. * Moderate white matter disease which is nonspecific but likely reflective of chronic microvascular ischemia. * No evidence of parenchymal microhemorrhages by MRI. 06/18/2023 XR hip bilateral HISTORIES FAMILY HISTORY Adopted: Yes Problem Relation Age of Onset other (alcholoism) Father PAST MEDICAL HISTORY Diagnosis Date Alzheimer's dementia without behavioral disturbance (HCC) Dermatitis GERD (gastroesophageal reflux disease) Hypothyroidism Pseudoseizures Thyroid condition PAST SURGICAL HISTORY Procedure Laterality Date COLONOSCOPY FLX DX W/COLLJ SPEC WHEN PFRMD 11/16/2019 Colonoscopy EGD N/A 08/27/2016 ESOPHAGOGASTRODUODENOSCOPY TRANSORAL DIAGNOSTIC 11/16/2019 EGD PAST SURGICAL HISTORY OF 2008 coronary artery bypass two Social History Tobacco Use Smoking status: Never Smokeless tobacco: Never Vaping Use Vaping Use: Never used Substance Use Topics Alcohol use: No Drug use: No ACTIVE PROBLEM LIST Psychogenic Nonepileptic Seizure Hypothyroidism Gerd (Gastroesophageal Reflux Disease) Alzheimer's Dementia Without Behavioral Disturbance (Hcc) Carotid Stenosis, Asymptomatic Coronary Artery Disease Involving [place] Coronary Artery of [place] Heart Without Angina Pectoris Paroxysmal Atrial Fibrillation (Hcc) Ckd (Chronic Kidney Disease) Stage 3, Gfr 30-59 Ml/Min (Hcc) Morbid Obesity With Body Mass Index (Bmi) of 40.0 to 44.9 in Adult (Hcc) Abdominal Aortic Aneurysm (Aaa) Without Rupture (Hcc) Fatty Liver Bpv (Benign Positional Vertigo), Unspecified Laterality Collagenous Colitis Other Hyperlipidemia Essential Hypertension Chronic Depression Hypertensive Kidney Disease With Stage 3 Chronic Kidney Disease (Hcc) Abnormal Cardiovascular Stress Test Anemia, Unspecified Anterior Epistaxis Anxiety Cellulitis of Right Lower Limb Cellulitis, Unspecified Coagulation Defect, Unspecified (Hcc) Diaphragmatic Hernia Without Obstruction Or Gangrene Hiatal Hernia History of Atrial Fibrillation History of Coronary Artery Bypass Surgery Iron Deficiency 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 120 capsule 2 levothyroxine (SYNTHROID) 100 mcg tablet Take 1 tablet by mouth daily before breakfast. For thyroid. 90 tablet 3 nystatin (MYCOSTATIN) cream Apply 1 application to affected area twice daily. 45 g 0 budesonide, enteric coated (ENTOCORT EC) 3 mg 24 hr capsule Take 3 capsules by mouth once daily. 90 capsule 5 apixaban (ELIQUIS) 5 mg tab(s) Take 1 tablet by mouth twice daily. 60 tablet 5 busPIRone (BUSPAR) 5 mg tablet Take 1 tablet by mouth three times daily. 90 tablet 11 ferrous sulfate 325 mg (65 mg iron) tablet Take 1 tablet by mouth twice daily with meals. [address] (PROTONIX) 40 mg tablet Take 1 tablet by mouth twice daily. 180 tablet 1 potassium chloride (K-TAB) 10 mEq tablet Take 1 tablet by mouth daily with breakfast. 30 tablet 11 sertraline (ZOLOFT) 100 mg tablet Take 1 tablet by mouth once daily. 90 tablet 3 famotidine (PEPCID) 20 mg tablet Take 1 tablet by mouth at bedtime as needed. 90 tablet 2 furosemide (LASIX) 40 mg tablet MELATONIN ORAL Take 10 mg by mouth. atorvastatin (LIPITOR) 20 mg tablet Take 1 tablet by mouth once daily. For cholesterol. 30 tablet 2 lisinopril (PRINIVIL) 10 mg tablet Take 0.5 tablets by mouth once daily. Per Dr. Funk nitroglycerin sublingual (NITROQUICK) 0.4 mg SL tablet Dissolve 1 tablet under the tongue every 5 minutes as needed. 1 Bottle of 25 1 No current facility-administered medications for this visit. RSV Vaccine(1 - 1-dose 60+ series) Never done Bone Density Screening Never done EXAM: BP 130/68 Pulse 76 Temp 36.5 C (97.7 F) Resp 16 Wt 111.6 kg (246 lb) SpO2 96% BMI 40.94 kg/m Pleasant obese adult woman in no acute distress. Alert and oriented all spheres. Normal affect and cognition. Speech normal. No deficits to learning or comprehension. Skin warm, dry, pink to lips and nailbeds. Normal turgor. Respirations regular and unlabored. Chest is normal shape. Lungs are clear to all blas with good air exchange through out. HRRR without murmur or gallop. No lifts, heaves, or rubs. Moderate levoscoliotic lumbar curve with significant left hip drop. Thought this was arthritis in left hip but not validated on xray to degree would cause such gait disturbance. Extrem: no clubbing or cyanosis. Edema: 1/4+ lower legs bilaterally. Removed an 8x8cm salonpas patch to reveal an 8cm x 8cm circular skin tear with clean appearing red tissue, no border erythema or streaks. Extremities are warm and pink with prompt capillary refill. ASSESSMENT/PLAN: 1. Chronic bilateral low back pain with bilateral sciatica - ICD9: 724.2, 724.3, 338.29, ICD10: M54.42, M54.41, G89.29 (primary diagnosis) Chronic low back pain - Ice for localized tenderness - Warm moist heat for 20 min three times a day - PT consult - Xrays- see orders - XR LUMBAR GENERAL 3V AP/LAT/L5-S1 - CONSULT TO PAIN MGT - TRAMADOL 50 MG TABLET 2. Skin tear of right lower leg without complication, initial encounter - ICD9: 891.0, ICD10: S81.811A Follow up in 5 days to recheck and change duoderm Some of this note may have been copied and pasted for the purpose of history context and comparison and has been adjusted for changes in prior data. Yanni Davidson PA-C documented in this encounter [facility] 07-08-[address] [facility] 07-05-[address] [facility] 07-04-2023 Miscellaneous Notes Call to Antonella. Asked if it was just that she was just out of the Tylenol. States that she wasn't out she was just taking regular instead of arthritis. Will keep office updated on symptoms. If that severe, come back in . Pt's daughter Antonella calls with pt on the other line. Reports pt still having pain in left leg, pt was seen for same 06/18/23. Pt states her leg is very painful, she is having difficulty walking. Pt states the pain is not worse than when she was seen in office for pain. Denies swelling. Pt was prescribed gabapentin 300mg tabs, pt states she can not tolerate 300mg, it makes her dizzy so she is taking 200mg tabs bid. Pt was given 100mg pills by pharm. Pt states she ran out of tylenol arthritis 'quite a few days ago', daughter states she was not aware of this & will pick up driver more today. Asking if there is anything else pt can do for pain? Pt has a FU appt 07/16/23. Uses [facility] Mary Workman LPN documented in this encounter [facility] 07-04-2023 Miscellaneous Notes [facility] called to get clarification that patient is no longer taking gabapentin 100 mg; only 300 mg. Please call them at [phone]. documented in this encounter [facility] 06-28-2023 Miscellaneous Notes Notified daughter. Should be ok. Call if any issues at site including increased redness or warmth. Daughter Antonella, reports a dog scratched patient pretty bad, tore her skin open bad, couldn't get bleeding to stop, so called the squad. ER gave patient a tetanus shot b/c patient could not remember when her last tetanus was. Per epic last tetanus was 10-10-22. Daughter concerned if this will hurt patient and asking doctor if she should be concerned. Please advise daughter. documented in this encounter [facility] 06-18-[address] [facility] 06-18-[address] [facility] 06-18-2023 Instructions Yanni Davidson PA-C - 06/18/2023 4:36 PM EDT Gabapentin (Patient Education - Adult Medication) You must carefully read the Consumer Information Use and Disclaimer below in order to understand and correctly use this information Pronunciation (GA ba pen alfredo) Brand Names: USGralise; Gralise Starter; Neurontin Brand Names: [place]ACT Gabapentin [DSC]; AG-Gabapentin; APO-Gabapentin; Auro-Gabapentin; BCI Gabapentin [DSC]; BIO-Gabapentin; DOM-Gabapentin; GD-Gabapentin; GLN-Gabapentin; JAMP-Gabapentin; Mar-Gabapentin; MYLAN-Gabapentin [DSC]; Neurontin; PHL-Gabapentin [DSC]; PMS-Gabapentin; Priva-Gabapentin; PRO-Gabapentin; RAN-Gabapentin; LYNNE-Gabapentin; TARO-Gabapentin; TEVA-Gabapentin; VAN-Gabapentin [DSC] What is this drug used for? It is used to treat seizures. It is used to treat painful nerve diseases. It may be given to you for other reasons. Talk with the doctor. What do I need to tell my doctor BEFORE I take this drug? If you have an allergy to gabapentin or any other part of this drug. If you are allergic to any drugs like this one, any other drugs, foods, or other substances. Tell your doctor about the allergy and what signs you had, like rash; hives; itching; shortness of breath; wheezing; cough; swelling of face, lips, tongue, or throat; or any other signs. If you have kidney disease or are on dialysis. This is not a list of all drugs or health problems that interact with this drug. Tell your doctor and pharmacist about all of your drugs (prescription or OTC, natural products, vitamins) and health problems. You must check to make sure that it is safe for you to take this drug with all of your drugs and health problems. Do not start, stop, or change the dose of any drug without checking with your doctor. What are some things I need to know or do while I take this drug? Tell all of your health care providers that you take this drug. This includes your doctors, nurses, pharmacists, and dentists. Avoid driving and doing other tasks or actions that call for you to be alert until you see how this drug affects you. This drug may affect certain lab tests. Tell all of your health care providers and lab workers that you take this drug. Have blood work checked as you have been told by the doctor. Talk with the doctor. Talk with your doctor before you drink alcohol or use other drugs and natural products that slow your actions. This drug is not the same as gabapentin enacarbil (Horizant ). Do not use in its place. Talk with the doctor. A severe and sometimes deadly reaction has happened. Most of the time, this reaction has signs like fever, rash, or swollen glands with problems in body organs like the liver, kidney, blood, heart, muscles and joints, or lungs. If you have questions, talk with the doctor. Do not stop taking this drug all of a sudden without calling your doctor. You may have a greater risk of side effects. If you need to stop this drug, you will want to slowly stop it as ordered by your doctor. If you are 65 or older, use this drug with care. You could have more side effects. Use with care in children. Talk with the doctor. Tell your doctor if you are or plan on getting . You will need to talk about the benefits and risks of using this drug while you are . Tell your doctor if you are breast-feeding. You will need to talk about any risks to your baby. What are some side effects that I need to call my doctor about right away? WARNING/CAUTION: Even though it may be rare, some people may have very bad and sometimes deadly side effects when taking a drug. Tell your doctor or get medical help right away if you have any of the following signs or symptoms that may be related to a very bad side effect: Signs of an allergic reaction, like rash; hives; itching; red, swollen, blistered, or peeling skin with or without fever; wheezing; tightness in the chest or throat; trouble breathing, swallowing, or talking; unusual hoarseness; or swelling of the mouth, face, lips, tongue, or throat. Signs of liver problems like dark urine, feeling tired, not hungry, upset stomach or stomach pain, light-colored stools, throwing up, or yellow skin or eyes. Signs of kidney problems like unable to pass urine, change in how much urine is passed, blood in the urine, or a big weight gain. Trouble controlling body movements, twitching, change in balance, trouble swallowing or speaking. Memory problems or loss. Change in eyesight. Feeling confused. Shakiness. Shortness of breath, a big weight gain, or swelling in the arms or legs. Feeling very tired or weak. Not able to control eye movements. If seizures are worse or not the same after starting this drug. Any unexplained bruising or bleeding. Swollen gland. Fever or chills. Sore throat. Muscle pain or weakness. Not able to focus. Very bad dizziness or passing out. Patients who take this drug may be at a greater risk of having thoughts or actions of suicide. The risk may be greater in people who have had these thoughts or actions in the past. Call the doctor right away if signs like low mood (depression), nervousness, restlessness, grouchiness, panic attacks, or changes in mood or actions are new or worse. Call the doctor right away if any thoughts or actions of suicide occur. What are some other side effects of this drug? All drugs may cause side effects. However, many people have no side effects or only have minor side effects. Call your doctor or get medical help if any of these side effects or any other side effects bother you or do not go away: Dizziness. Feeling sleepy. Upset stomach or throwing up. Diarrhea. Dry mouth. Feeling tired or weak. These are not all of the side effects that may occur. If you have questions about side effects, call your doctor. Call your doctor for medical advice about side effects. You may report side effects to your national health agency. How is this drug best taken? Use this drug as ordered by your doctor. Read all information given to you. Follow all instructions closely. All products: Keep taking this drug as you have been told by your doctor or other health care provider, even if you feel well. To gain the most benefit, do not miss doses. If you are taking an antacid that has aluminum or magnesium in it, take this drug at least 2 hours after taking the antacid. Gralise: Take with the evening meal. Swallow whole. Do not chew, break, or crush. All other products: Take with or without food. Take with food if it causes an upset stomach. Capsules: Swallow whole with a full glass of water. Tablets: You may break the tablet in half. Do not chew or crush. If you break the tablet in half, use the other half of the tablet for the next dose, as told by the doctor. Throw away half-tablets not used within 28 days. Liquid (solution): Measure liquid doses carefully. Use the measuring device that comes with this drug. If there is none, ask the pharmacist for a device to measure this drug. What do I do if I miss a dose? Take a missed dose as soon as you think about it. If it is close to the time for your next dose, skip the missed dose and go back to your normal time. Do not take 2 doses at the same time or extra doses. How do I store and/or throw out this drug? Liquid (solution): Store in a refrigerator. Do not freeze. All other products: Store at room temperature. Store in a dry place. Do not store in a bathroom. All dose forms: Keep all drugs in a safe place. Keep all drugs out of the reach of children and pets. Throw away unused or drugs. Do not flush down a toilet or pour down a drain unless you are told to do so. Check with your pharmacist if you have questions about the best way to throw out drugs. There may be drug take-back programs in your area. General drug facts If your symptoms or health problems do not get better or if they become worse, call your doctor. Do not share your drugs with others and do not take anyone else's drugs. Keep a list of all your drugs (prescription, natural products, vitamins, OTC) with you. Give this list to your doctor. Talk with the doctor before starting any new drug, including prescription or OTC, natural products, or vitamins. Some drugs may have another patient information leaflet. If you have any questions about this drug, please talk with your doctor, nurse, pharmacist, or other health care provider. If you think there has been an overdose, call your poison control center or get medical care right away. Be ready to tell or show what was taken, how much, and when it happened. Last Reviewed Date 2017-12-13 Tylenol Arthritis maximum 2 tablet every 8h Occasional ibuprofen or Aleve if needed. Trial tumeric 500mg caps twice a day. May also try any of these OTC: Blue Emu, Aspercream with Lidocaine, Green[place]ic Dream, Biofreeze topicals Try to avoid activities which increase pain. Position for comfort with pillows under or between legs to decrease stress on low back and hip when in bed. Sleeping conditions are very important to back health. You need to sleep on a surface that supports your hips in a neutral position. Sagging in the hip or shoulder areas will contribute to muscle irritation. Using a low footstool when sitting upright may also reduce low back pain. Try to arrange seating to allow support in the area where your back curves, especially while watching TV or playing video games. Sitting or standing with a hunched posture will cause or aggravate muscle pain in the neck and low back. Ice or moist heat or both may help with pain and stiffness. Apply for 10-15min as needed. May also use Ibuprofen 600mg q6-8h with food routinely until pain is fully resolved, then prn. documented in this encounter [facility] 06-18-2023 History of Present illness Narrative 77 year old female with c/o f/u chronic leg pain Ongoing over last year, Sharp pain, started with sciatic. Constant 10/10 can hardly get out of bed States left leg is longer. Having trouble walking to the bathroom. Daughter says debilitating pain taking ibuprofen 3 tabs twice a day Also taking Tylenol too. Dr. Denise started on tizanidine Notes some bowel incontinence when she can't get to [place]. Has been in PT in past without any improvement. 02/20/2023 XR LS spine: COMPARED TO THE PREVIOUS EXAMINATION THE L5/S1 DISC SPACE IS DECREASED IN SIZE WHICH REMAIN PARTLY POSITIONAL. 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 FACET DEGENERATIVE CHANGES AND LUMBAR LORDOSIS IS UNCHANGED. NO CHANGE IN FUSIFORM ABDOMINAL AORTIC ANEURYSM AT THE L4 LEVEL. 01/17/2023 LS spine XR IMPRESSION: DEGENERATIVE DISC DISEASE AT T12/L1 AND L1/L2. GRADE 1 ANTEROLISTHESIS OF L4 ON L5 AND L5-S1 WITH FACET DEGENERATIVE CHANGES AT THESE LEVELS. ABDOMINAL AORTIC ECTASIA WITH FOCAL ANEURYSMAL DILATATION. HISTORIES FAMILY HISTORY Adopted: Yes Problem Relation Age of Onset other (alcholoism) Father PAST MEDICAL HISTORY Diagnosis Date Alzheimer's dementia without behavioral disturbance (HCC) Dermatitis GERD (gastroesophageal reflux disease) Hypothyroidism Pseudoseizures Thyroid condition PAST SURGICAL HISTORY Procedure Laterality Date COLONOSCOPY FLX DX W/COLLJ SPEC WHEN PFRMD 11/16/2019 Colonoscopy EGD N/A 08/27/2016 ESOPHAGOGASTRODUODENOSCOPY TRANSORAL DIAGNOSTIC 11/16/2019 EGD PAST SURGICAL HISTORY OF 2008 coronary artery bypass two Social History Tobacco Use Smoking status: Never Smokeless tobacco: Never Vaping Use Vaping Use: Never used Substance Use Topics Alcohol use: No Drug use: No ACTIVE PROBLEM LIST Psychogenic Nonepileptic Seizure Hypothyroidism Gerd (Gastroesophageal Reflux Disease) Alzheimer's Dementia Without Behavioral Disturbance (Hcc) Carotid Stenosis, Asymptomatic Coronary Artery Disease Involving [place] Coronary Artery of [place] Heart Without Angina Pectoris Paroxysmal Atrial Fibrillation (Hcc) Ckd (Chronic Kidney Disease) Stage 3, Gfr 30-59 Ml/Min (Hcc) Morbid Obesity With Body Mass Index (Bmi) of 40.0 to 44.9 in Adult (Hcc) Abdominal Aortic Aneurysm (Aaa) Without Rupture (Hcc) Fatty Liver Bpv (Benign Positional Vertigo), Unspecified Laterality Collagenous Colitis Other Hyperlipidemia Essential Hypertension Chronic Depression Hypertensive Kidney Disease With Stage 3 Chronic Kidney Disease (Hcc) Abnormal Cardiovascular Stress Test Anemia, Unspecified Anterior Epistaxis Anxiety Cellulitis of Right Lower Limb Cellulitis, Unspecified Coagulation Defect, Unspecified (Hcc) Diaphragmatic Hernia Without Obstruction Or Gangrene Hiatal Hernia History of Atrial Fibrillation History of Coronary Artery Bypass Surgery Iron Deficiency Iron Deficiency Anemia, Unspecified Fdc (Current) Use of Anticoagulants Lower Esophageal Ring Presence of Aortocoronary Bypass Graft Sprain of Hip Syncope and Collapse Sciatica of Left Side 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 15 tablet 0 levothyroxine (SYNTHROID) 100 mcg tablet Take 1 tablet by mouth daily before breakfast. For thyroid. 90 tablet 3 nystatin (MYCOSTATIN) cream Apply 1 application to affected area twice daily. 45 g 0 budesonide, enteric coated (ENTOCORT EC) 3 mg 24 hr capsule Take 3 capsules by mouth once daily. 90 capsule 5 apixaban (ELIQUIS) 5 mg tab(s) Take 1 tablet by mouth twice daily. 60 tablet 5 busPIRone (BUSPAR) 5 mg tablet Take 1 tablet by mouth three times daily. 90 tablet 11 ferrous sulfate 325 mg (65 mg iron) tablet Take 1 tablet by mouth twice daily with meals. [address] (PROTONIX) 40 mg tablet Take 1 tablet by mouth twice daily. 180 tablet 1 potassium chloride (K-TAB) 10 mEq tablet Take 1 tablet by mouth daily with breakfast. 30 tablet 11 sertraline (ZOLOFT) 100 mg tablet Take 1 tablet by mouth once daily. 90 tablet 3 famotidine (PEPCID) 20 mg tablet Take 1 tablet by mouth at bedtime as needed. 90 tablet 2 furosemide (LASIX) 40 mg tablet MELATONIN ORAL Take 10 mg by mouth. atorvastatin (LIPITOR) 20 mg tablet Take 1 tablet by mouth once daily. For cholesterol. 30 tablet 2 lisinopril (PRINIVIL) 10 mg tablet Take 0.5 tablets by mouth once daily. Per Dr. Funk nitroglycerin sublingual (NITROQUICK) 0.4 mg SL tablet Dissolve 1 tablet under the tongue every 5 minutes as needed. 1 Bottle of 25 1 No current facility-administered medications for this visit. BP Controlled (<130/80) Never done Bone Density Screening Never done BP 120/78 Pulse 86 Resp 16 Wt 110.2 kg (243 lb) SpO2 98% BMI 40.44 kg/m Pleasant obese elderly woman in no acute distress. Alert and oriented all spheres. Cheerful and joking. Normal affect and cognition. Speech normal. No deficits to learning or comprehension. Skin warm, dry, pink to lips and nailbeds. Normal turgor. Respirations regular and unlabored. Chest is normal shape. Lungs are clear to all blas with good air exchange through out. HRRR without murmur or gallop. No lifts, heaves, or rubs. Patient has significant deformity affecting the lower back with significant tilt in the left pelvis and hip suggestive of significant intra-articular hip arthritis. Patient has a significant waddle in her gait. Forward flexion to toes. Nontender in the mid back. Extrem: no clubbing or cyanosis. Edema: None. Extremities are warm and pink with prompt capillary refill. Dorsal pedal pulses are 2 out of 4 plus. Patient has sensation to warm and cool but unable to distinguish between sharp and dull, identifies vague sensation with above. Knee jerk and Achilles are both 0-1+. Patient is able to sustain extension of both great toes, 5/5+plus knee flexion, 4/5+ extension, 5/5+ hip flexion, 3/ 5 hip abduction left, 4/5+ right ASSESSMENT/PLAN: 1. Chronic left hip pain - ICD9: 719.45, 338.29, ICD10: M25.552, G89.29 (primary diagnosis) The patient's primary issue is likely [id number] hip arthritis. We will proceed with x-rays. - XR HIP BILATERAL 5V PEL/AP/LAT EACH HIP 2. Chronic bilateral low back pain with left-sided sciatica - ICD9: 724.2, 724.3, 338.29, ICD10: M54.42, G89.29 Patient does have evidence of facet arthritis in the lumbar spine, also spondylolisthesis which is not severe enough I think to be worrisome. I personally reviewed spine films, has significant spurring with possible foraminal stenosis L2-3 and L3-4 Discussed with patient and family x-ray findings are necessary regarding the hip first as I suspect this is what is causing the majority of her pain. We may end up doing additional studies identify spine related causes although her exam is more consistent with polyneuropathy or multilevel significant foraminal or spinal stenosis. May need to do MRI L-spine if not improving. In the interim, start gabapentin 100 mg 3 times daily and titrate to 300 mg 3 times daily, follow-up in 4 weeks and in the interim on progress. We will continue to titrate to pain relief if possible. Patient continues current medications as ordered. Encouraged use of Tylenol arthritis formula at maximum dosing for pain. See and discharge instructions for other options [id number]. Encouraged Salonpas patches in addition. Educated on new medication administration, warnings and cautions, common side effects, anticipated duration or therapy, and instructions on cessation management to avoid risks if stops medication. Patient choice was discussed in shared decision making. Yanni Davidson PA-C documented in this encounter [facility] 06-14-[address] [facility] 06-14-[address] [facility] 06-14-2023 Instructions Lilly Gudino APRN.RAYNE - 06/14/2023 9:45 AM EDT Hold famotidine while on tizanidine. documented in this encounter [facility] 06-14-2023 History of Present illness Narrative Chief Complaint No chief complaint on file. HPI Tanya Sanchez is a 77 year old female who presents here today for Above Complaints.. Patient presents for cellulitis follow up. Patient was seen 05/[address] Denise for cellulitis of left lower leg. Patient was treated first with keflex then with doxycycline. Patient reports symptoms have improved Past medical history, appointments, medications, allergies reviewed. Previous Medical History PAST MEDICAL HISTORY Diagnosis Date Alzheimer's dementia without behavioral disturbance (HCC) Dermatitis GERD (gastroesophageal reflux disease) Hypothyroidism Pseudoseizures Thyroid condition Previous Surgical History PAST SURGICAL HISTORY Procedure Laterality Date COLONOSCOPY FLX DX W/COLLJ SPEC WHEN PFRMD 11/16/2019 Colonoscopy EGD N/A 08/27/2016 ESOPHAGOGASTRODUODENOSCOPY TRANSORAL DIAGNOSTIC 11/16/2019 EGD PAST SURGICAL HISTORY OF 2007 coronary artery bypass two Family History FAMILY HISTORY Adopted: Yes Problem Relation Age of Onset other (alcholoism) Father Patient Allergies ALLERGIES Allergen Reactions Novocain [Procaine * Other: See Comments Blood pressure rises Current Medications Current Outpatient Medications on File Prior to Visit Medication Sig levothyroxine (SYNTHROID) 100 mcg tablet Take 1 tablet by mouth daily before breakfast. For thyroid. nystatin (MYCOSTATIN) cream Apply 1 application to affected area twice daily. budesonide, enteric coated (ENTOCORT EC) 3 mg 24 hr capsule Take 3 capsules by mouth once daily. apixaban (ELIQUIS) 5 mg tab(s) Take 1 tablet by mouth twice daily. busPIRone (BUSPAR) 5 mg tablet Take 1 tablet by mouth three times daily. ferrous sulfate 325 mg (65 mg iron) tablet Take 1 tablet by mouth twice daily with meals. pantoprazole DR (PROTONIX) 40 mg tablet Take 1 tablet by mouth twice daily. potassium chloride (K-TAB) 10 mEq tablet Take 1 tablet by mouth daily with breakfast. sertraline (ZOLOFT) 100 mg tablet Take 1 tablet by mouth once daily. famotidine (PEPCID) 20 mg tablet Take 1 tablet by mouth at bedtime as needed. furosemide (LASIX) 40 mg tablet MELATONIN ORAL Take 10 mg by mouth. atorvastatin (LIPITOR) 20 mg tablet Take 1 tablet by mouth once daily. For cholesterol. lisinopril (PRINIVIL) 10 mg tablet Take 0.5 tablets by mouth once daily. Per Dr. Funk nitroglycerin sublingual (NITROQUICK) 0.4 mg SL tablet Dissolve 1 tablet under the tongue every 5 minutes as needed. No current facility-administered medications on file prior to visit. Social History Social History Tobacco Use Smoking status: Never Smokeless tobacco: Never Vaping Use Vaping Use: Never used Substance Use Topics Alcohol use: No Drug use: No Review of Symptoms REVIEW OF SYSTEMS SEE HPI EXAM: BP 130/74 Pulse 80 Resp 16 Wt 108.4 kg (239 lb) SpO2 98% BMI 39.77 kg/m General Appearance: Well appearing, alert, in no acute distress, well-hydrated, well nourished.. Skin: Positives: Bilateral legs rough and discolored red/purple. No erythema, swelling or warmth noted. Extremities: Edema: Non pitting edema to bilateral lower extremities. Health Maintenance List BP Controlled (<130/80) Never done Bone Density Screening Never done Influenza Vaccine(1) due on 03/08/2024 Hepatitis C Screening due on 05/27/2024 Shingrix Vaccine(1 of 2) due on 05/27/2024 Covid-19 Vaccine(1) due on 05/27/2024 Pneumococcal Vaccine: 65+(1 - PCV) due on 05/27/2024 LDL Cholesterol due on 04/12/2024 Serum Creatinine due on 04/12/2024 Hemoglobin/Hematocrit due on 05/20/2024 Annual PCP Team Chronic Disease Visit due on 06/05/2024 Colorectal Cancer Screening due on 11/15/2024 Diabetes Screening due on 04/12/2026 Lipid Screening due on 04/12/2028 DTaP,Tdap,Td Vaccine(2 - Td or Tdap) due on 06/18/2032 Advance Directive Discussion Completed Mammogram Screening Discontinued ASSESSMENT/PLAN: 1. Pain in left lower leg - ICD9: 729.5, ICD10: M79.662 - TIZANIDINE 2 MG CAPSULE Patient and family instructed to hold famotidine for next couple days while on tizanidine. Lilly Gudino APRN.HERPETOLOGIST documented in this encounter [facility] 06-05-[address] [facility] 05-27-[address] [facility] 05-25-2023 Miscellaneous Notes Phoned daughter, and given provider's message's below with verbalized understanding. Us is ok. See below Results under scanned documents Verify for me results at [facility] Cannot use nsaids, can add tylenol prn Patient's daughter calls and states that patient had ultrasound on leg done on Saturday at [facility]. Daughter asking about the results for this? Daughter states that patient is a lot of pain with leg. Daughter asking if provider can prescribe anything for this pain? Daughter asking about anti-inflammatory that can be prescribed? If something can be prescribed please send to [facility]. Please review and advise, Saida Conroy RN documented in this encounter [facility] 05-20-[address] [facility] 05-20-2023 Miscellaneous Notes Patient's daughter calling to ask if patient was to receive script for a cream for yeast infection in her abdominal fold? If so, please send to [facility]. Hannah Amor RN documented in this encounter [facility] 05-20-[address] [facility] 05-20-2023 History of Present illness Narrative Patient presents with: Edema HPI: Patient presents today for office visit for swelling and redness of B/L legs. Left is worse as far as painful. She previously saw Dr. Dalal. Placed on keflex. It did improve. Now seems to be worsening. No fever or chills. No drainage. No new scratches or trauma. She admits to sometimes let her dog lick them. Completed therapy for her back. Does exercises when she recalls which does help. Complaints of red and painful skin in pelvic region for a few days. MEDICATIONS: Current Outpatient Medications Medication Sig budesonide, enteric coated (ENTOCORT EC) 3 mg 24 hr capsule Take 3 capsules by mouth once daily. apixaban (ELIQUIS) 5 mg tab(s) Take 1 tablet by mouth twice daily. busPIRone (BUSPAR) 5 mg tablet Take 1 tablet by mouth three times daily. levothyroxine (SYNTHROID) 112 mcg tablet Take 1 tablet by mouth daily before breakfast. For thyroid. ferrous sulfate 325 mg (65 mg iron) tablet Take 1 tablet by mouth twice daily with meals. pantoprazole DR (PROTONIX) 40 mg tablet Take 1 tablet by mouth twice daily. potassium chloride (K-TAB) 10 mEq tablet Take 1 tablet by mouth daily with breakfast. sertraline (ZOLOFT) 100 mg tablet Take 1 tablet by mouth once daily. famotidine (PEPCID) 20 mg tablet Take 1 tablet by mouth at bedtime as needed. furosemide (LASIX) 40 mg tablet MELATONIN ORAL Take 10 mg by mouth. atorvastatin (LIPITOR) 20 mg tablet Take 1 tablet by mouth once daily. For cholesterol. lisinopril (PRINIVIL) 10 mg tablet Take 0.5 tablets by mouth once daily. Per Dr. Funk nitroglycerin sublingual (NITROQUICK) 0.4 mg SL tablet Dissolve 1 tablet under the tongue every 5 minutes as needed. tiZANidine (ZANAFLEX) 4 mg tablet Take 1 tablet by mouth every 8 hours as needed (muscle spasms). (Patient not taking: Reported on 04/30/2023) albuterol HFA (PROVENTIL HFA,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 Notes that she visits her every day along with her neighbor and is not experiencing any significant safety concerns. Patient's last fall was over a year ago, notes that she got her walker recently to prevent any further falls. Patient is not driving. She is able to cook for self, no fires. Able to bathe herself and do other ADLs. Daughter is concerned about possible hearing loss contributing to her symptoms, will order audiology testing although patient states she will not wear hearing aids if needed. Additionally, do not see history of B12 level. Will order B12 and MMA to evaluate for any vitamin deficiency contributing patient's symptoms. Previous folate in 2018 was normal. 7. Cellulitis of left lower extremity - ICD9: 682.6, ICD10: L03.116 Patient does have concerning lesion to the left lower extremity, concerning for cellulitis. Patient has 2 abrasions over the area. Discussed with daughter at length my concerns for infection, daughter agrees understands. Will follow with primary care for further evaluation and possible treatment of this. Patient without any tachycardia, tachypnea, or fever at this time. Area does appear warm, encouraged patient and family to trace the area and assess for any spreading. Discussed signs and notes that would warrant emergent evaluation, patient and daughter agree. Patient and daughter agreeable to treatment plan of care at this time, all questions were answered. Patient to follow-up in 2 months or sooner should any symptoms change or worsen. Ana Tucker PA-C I spent a total of 60 minutes on the date of the service which included preparing to see the patient, [id number] patient care, completing clinical documentation, obtaining and/or reviewing separately obtained history, performing a medically appropriate examination, counseling and educating the patient/family/caregiver, and ordering medications, tests, or procedures. This document has been created with the use of voice recognition technology. It may contain inaccuracies: (e.g. misspellings, inaccurate syntax or word sense) that have escaped review. documented in this encounter [facility] 04-29-[address] [facility] 04-29-2023 History of Present illness Narrative Episode Visit Count: 5 Therapist That Will Accept/Oversee The Plan Of Care: Connor Wolfe PT Start of Care Date: 04/02/23 Onset Date: 10/03/22 Plan of Care Certification Date: 04/02/23 Next Certification Due Date: 04/30/23 Patient Identified by Name and Date of : Yes REHABILITATION AND SPORTS THERAPY PHYSICAL THERAPY DISCONTINUANCE OF CARE PLAN OF CARE UPDATE: Assessment: Tanya Sanchez is discontinued from Physical Therapy services due to maximal benefit. and Patient/Clinician mutual decision to discontinue current plan of care.. Patient was seen for 5 visits from Start of Care Date: 04/02/23 to 04/29/2023 and treatment included: Therapeutic exercise, Neuromuscular re-education, Self-fdc management, Gait training, Patient/Family/Caregiver Education, Body mechanics training, and General conditioning. Updated: 04/29/23 Goals for Episode of Care: created on 04/02/23 through 04/30/23 Independent in home exercises. - MET Patient will decrease pain rating by 2 points to meet minimal clinical important difference for numeric pain rating scale. - MET Stand / Walk for longer periods, without pain/symptoms. - Partially MET Patient will increase strength of core and postural muscles to WFL to allow for improve gait mechanics/gait pattern and improve ability to complete ADLs. - Partially MET Patient Goals: decrease pain so that she can walk to grocery store - Partially MET SUBJECTIVE: Pt and her daughter report that she has a rollator at home but she refuses to use it. She has had 4 bad falls but continues to refuse to use rollator. Overall, she reports that she is better since starting PT with less pain in left low back and L hip. She reports compliance with HEP 1x day. She denies any noticeable change in her standing and walking tolerance. Daughter reports that patient's tolerance for grocery shopping is improved. She denies any pain in left low back and hip region.. Pain: Pain Pain Level: 0 Pain Location: Low Back/Lumbar Spine- Midline, Low Back/Lumbar Spine - Left, Buttocks - Left, Hip - Left Description: (no pain to start today) Frequency: Intermittent Post Treatment Pain Post Treatment Pain Level: No Change PROMIS Scales Higher is Better 04/02/2023 Phys Func - Score 35 (moderate dysfunction) Phys Func - Percentile 7 % Self-Eff Symptom - Score 34 (Low) Self-Eff Symptom - Percentile 5 % T-scores: mean of general population = 50. 5 points is clinically meaningfully difference Percentiles provide an indication of how the patient's score ranks in relation to the general population. Higher percentile rankings indicate better function/quality of life. 50th percentile is the average of the general population and indicates half of respondents had a worse score. OBJECTIVE MEASURES WITH LEVEL OF FUNCTION: Gait Gait Observation: Antalgic secondary to L lower leg pain but not because of familiar pain that triggered the PT referral. L low back and L buttock pain is fully resolved according to pt. Balance Dynamic Standing Balance: Comments Dynamic Standing Balance Comments: Pt balance is still impaired by her L lower leg pain and she would benefit significantly from using her rollator because fall risk is still significant despite the significant improvement in low back and hip pain on left. TREATMENT: Therapeutic Exercise: 1: HEP was thoroughly reviewed and continuation encouraged to tolerance. 2: Re-assessment results were shared with pt and used as rationale for d/c recommendations. Skilled Intervention: Patient was educated in proper exercise technique and purpose for exercises. Skilled judgment was provided in selection of appropriate interventions. Correct performance of therapeutic exercises was facilitated with verbal and visual cuing. Patient education as noted. Self-Fdc Management: 1: Pt's fall risk was emphasized to her and used as rationale for rollator recommendation. She was repeatedly advised that she should be using the rollator she has at home. Pt was educated on the dangers of furniture walking and the benefits using rollator. Pt's daughter agreed with therapist and emphasized the importance of rollator use at home Skilled Intervention: Skilled judgment in the selection of proper modification for activity of daily living/home management based on clinical presentation, deficits, and needs. Reviewed patient specific diagnosis in relation to activities of daily living/home management. Billing Therapeutic Exercise Treatment Minutes: 5 Self-Care/Home Management Treatment Minutes: 16 Total Treatment Time Minutes (timed/untimed): 21 Session Start Time : 1036 Session Stop Time : 1057 Connor Wolfe PT documented in this encounter [facility] 04-24-[address] [facility] 04-24-2023 Note HNO ID: [id number] Author: Bal Denise MD Service: ? Author Type: Physician Type: Progress Notes Filed: 04/24/2023 12:33 PM Note Text: Hopefully with the therapy, that will take care of it and won't need either mcfp meds or pain management. [facility] 04-24-[address] [facility] 04-24-2023 History of Present illness Narrative Talked to daughter. They will finish up with PT and see what the rest of the plan is. Also will use tizanidine sparingly. Daughter states that her mother feels the tizanidine if very helpful for her pain. I noted that we are hoping the PT makes it so she doesn't need anything for pain. Daughter agrees. Hopefully with the therapy, that will take care of it and won't need either mcfp meds or pain management. CDM Telephonic Outreach Provider Myles/Bal Carty MD Patient's daughter Antonella reports patient having pain and recently received another prescription for tizanidine which helps the patient - asking for longer term prescription or should patient be referred to pain management? Please have your staff reach out to the patient with further orders/instructions. Thank you, Lizette Dykes RN Application Support Consultant Goals, ADLs and Falls assessments updated. Spoke with Tanya Sanchez's daughter Antonella and validated involvement in patient's care. Patient got carotid ultrasound 48 hour heart monitor yesterday 10/11 outside [facility] CARD order. 05/31/23 NEURO appointment for dementia Physical Therapy visits help somewhat. Contacted for: Routine Telephonic Outreach Contact made with patient: Yes Patient identified by name and date of . Discussed care with daughter Are you experiencing any new or worsening symptoms you need to talk about today? Yes Based on health assessment and treatment teacher, the following disposition is advised: No symptoms or symptoms present, not severe. Routed to: No Action Needed TERESA Education Provided this Outreach: No Lizette Dykes RN April 24, 2023 12:21 PM documented in this encounter [facility] 04-22-[address] [facility] 04-22-2023 History of Present illness Narrative Radiology Service Progress Note PATIENT NAME: Tanya Sanchez DATE OF SERVICE: April 22, 2023 TIME: 1:51 PM PATIENT IDENTITY VERIFICATION COMPLETED USING TWO (2) IDENTIFIERS: Name and Date of confirmed by patient verbally. FALL SCREENING: Has the patient had 2 falls in the last year or 1 fall with injury or currently using an Ambulatory Assistive Device (Walker, Cane, Wheelchair, Crutches, etc.)? No PATIENT GENDER DATA: Female. status: : No status: NO. PATIENT RELEVANT IMPLANT DATA REVIEWED: Not Applicable RADIOLOGY DEPARTMENT: Ultrasound PERIPHERAL IV DATA: Not applicable SIGNED BY: Kellen Gann RDMS April 22, 2023 1:51 PM documented in this encounter [facility] 04-22-[address] [facility] 04-22-2023 Miscellaneous Notes Antonella notified. Naseem Campbell LPN Rx sent Patient's daughter Antonella Allen calling and states patient has started physical therapy and her legs have been hurting her. Daughter asking if Dr. Denise would renew pt's script for a another short term supply of tizanidine? Pended for review. Please call daughter Antonella with any updates. Thank you. documented in this encounter [facility] 04-22-2023 History of Present illness Narrative Episode Visit Count: 4 Therapist That Will Accept/Oversee The Plan Of Care: Connor Wolfe PT Start of Care Date: 04/02/23 Onset Date: 10/03/22 Plan of Care Certification Date: 04/02/23 Next Certification Due Date: 04/30/23 Patient Identified by Name and Date of : Yes REHABILITATION AND SPORTS THERAPY PHYSICAL THERAPY TREATMENT NOTE ASSESSMENT: Tanya Sanchez tolerated the session with fatigue and expected muscle soreness. She demonstrated improvements in supine isometric abdominals with prolonged hold. The patient will continue to benefit from ongoing skilled physical therapy to progress toward set goals. PLAN FOR NEXT VISIT: Continue with postural stretching and strengthening and core stabilization and strengthening exercises. Consider seated isometric abdominals due to pt's limited tolerance for laying on hard surface. SUBJECTIVE: Pt reports that mornings when she gets up she could scream due to the back pain. Pt reports this is not a good day for pain for her. Pt states only completing HEP at night time before bed. Pain: Pain Pain Level: 3 Pain Location: Low Back/Lumbar Spine- Midline Post Treatment Pain Post Treatment Pain Level: No Change Post Treatment Pain Location: Low Back/Lumbar Spine- Midline OBJECTIVE MEASURES WITH LEVEL OF FUNCTION: Good core activation noted with seated perturbations with GTB. TREATMENT: Therapeutic Exercise: 1: Sci[employer] StepOne seat #13 x5 minutes to utilize her directional preference of flexion therex (pt provided an update on her condition and therapist discussed trying stretches when she is having more pain, instead of just completing at night time.) 2: supine B SKTC 3x30 seconds each 3: supine DKTC 3x30 secons 4: supine DKTC 3x30 secons 5: supine isometric abdominal exercise via shoulder extension 10 second holds 2x10 6: Seated GTB perturbations 3x15 each forward, R, and L Skilled Intervention: Patient was educated in proper exercise technique and purpose for exercises. Skilled judgment was provided in selection of appropriate interventions. Correct performance of therapeutic exercises was facilitated with verbal and visual cuing. Billing Therapeutic Exercise Treatment Minutes: 45 Total Treatment Time Minutes (timed/untimed): 45 Session Start Time : 1028 Session Stop Time : 1113 VALERY Hwang PT documented in this encounter [facility] 04-15-[address] [facility] 04-15-2023 Miscellaneous Notes Called and spoke with daughterMargret. She wrote down new directions and verbalized understanding. Shaz[facility] Marie Labs show thyroid is still too much. Was supposed to be taking 125 daily except 112 on Sat and Sun. Change it to daily 112 mcg a day. Check tsh in six weeks. documented in this encounter [facility] 04-12-[address] [facility] 04-12-2023 History of Present illness Narrative Patient presents with: Follow Up HPI: Patient presents today for office visit for acute visit. Complains of dizziness and headache. This was about three days ago. This sounds as if it is the same issues we have had before with no new changes. Has pain on the back of her head. Has had multiple falls through the years none recently. We discussed using cane or walker. Someone had to help her get into the house. Has happened intermittently. She does not recall the incidents due to her memory. Her daughter accompanies her. Was told history by the neighbor. Apparently was feeling vertigo. Has been that way for some time. She feels the headache is more top of the head or occiput. No definite chest pain or shortness of breath. Did have some palpitations yesterday. No recent syncope. 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 Has had ablation of a fib at [place]. Is overdue to see both [facility] and neuro. No seizures. No definite recurrent seizure. She feels fine today. Is not the worst headache she has had. This is not new. It is the same issues she has had before. Due for repeat AAA eval soon No changes in bowels or stomach. MEDICATIONS: Current Outpatient Medications Medication Sig busPIRone (BUSPAR) 5 mg tablet Take 1 tablet by mouth three times daily. tiZANidine (ZANAFLEX) 4 mg tablet Take 1 tablet by mouth every 8 hours as needed (muscle spasms). levothyroxine (SYNTHROID) 112 mcg tablet Take 1 tablet by mouth daily before breakfast. For thyroid. levothyroxine (SYNTHROID) 125 mcg tablet Take 1 tablet by mouth daily before breakfast. Except 112 mcg a day on Sat and Saturday ferrous sulfate 325 mg (65 mg iron) tablet Take 1 tablet by mouth twice daily with meals. pantoprazole DR (PROTONIX) 40 mg tablet Take 1 tablet by mouth twice daily. potassium chloride (K-TAB) 10 mEq tablet Take 1 tablet by mouth daily with breakfast. sertraline (ZOLOFT) 100 mg tablet Take 1 tablet by mouth once daily. famotidine (PEPCID) 20 mg tablet Take 1 tablet by mouth at bedtime as needed. budesonide, enteric coated (ENTOCORT EC) 3 mg 24 hr capsule Take 3 capsules by mouth once daily. apixaban (ELIQUIS) 5 mg tab(s) Take 1 tablet by mouth twice daily. albuterol HFA (PROVENTIL HFA, VENTOLIN HFA) 90 mcg/actuation inhaler Inhale 2 Puffs as instructed every 4 hours as needed for wheezing/shortness of breath. omeprazole (PRILOSEC) 40 mg capsule Take 1 capsule by mouth once daily. furosemide (LASIX) 40 mg tablet MELATONIN ORAL Take 10 mg by mouth. Cyanocobalamin (VITAMIN B-12) 50 mcg tab Take 1 tablet by mouth once daily. qsbcqaxm-rjxm-ZJ-calcium-mins (ONE-A-DAY WOMENS FORMULA) 18 mg iron-400 mcg-500 mg Ca tab Take 1 tablet by mouth once daily. atorvastatin (LIPITOR) 20 mg tablet Take 1 tablet by mouth once daily. For cholesterol. lisinopril (PRINIVIL) 10 mg tablet Take 0.5 tablets by mouth once daily. Per Dr. Funk metoprolol tartrate, short acting, (LOPRESSOR) 50 mg tablet Take 1 tablet by mouth twice daily. Per Dr. Funk cholecalciferol (VITAMIN D3) 50 mcg (2,000 unit) tablet Take 2,000 Units by mouth once daily. nitroglycerin sublingual (NITROQUICK) 0.4 mg SL tablet Dissolve 1 tablet under the tongue every 5 minutes as needed. aspirin, enteric coated (ASPIRIN, ENTERIC COATED) 81 mg EC tablet Take 81 mg by mouth once daily. No current facility-administered medications for this visit. ALLERGIES: ALLERGIES Allergen Reactions Novocain [Procaine * Other: See Comments Blood pressure rises PAST MEDICAL HISTORY Diagnosis Date Alzheimer's dementia without behavioral disturbance (HCC) Dermatitis GERD (gastroesophageal reflux disease) Hypothyroidism Pseudoseizures Thyroid condition PAST SURGICAL HISTORY Procedure Laterality Date COLONOSCOPY FLX DX W/COLLJ SPEC WHEN PFRMD 11/16/2019 Colonoscopy EGD N/A 08/27/2016 ESOPHAGOGASTRODUODENOSCOPY TRANSORAL DIAGNOSTIC 11/16/2019 EGD PAST SURGICAL HISTORY OF 2007 coronary artery bypass two FAMILY HISTORY Adopted: Yes Problem Relation Age of Onset other (alcholoism) Father Social History Tobacco Use Smoking status: Never Smokeless tobacco: Never Vaping Use Vaping Use: Never used Substance Use Topics Alcohol use: No Drug use: No Reviewed current medications, allergies, past medical history, surgical history, family history and social history today. REVIEW OF SYSTEMS All other reviewed and negative other than HPI. HEALTH MAINTENANCE: Reviewed health maintenance issues today and recommended the following in detail. COVID-19 VACCINE(1) Never done HEPATITIS C SCREENING Never done SHINGRIX VACCINE(1 of 2) Never done BONE DENSITY Never done PNEUMOCOCCAL: 65+(1 - PCV) Never done LDL CHOLESTEROL due on 03/22/2022 VITALS: BP 104/62 Pulse 70 Wt 111.1 kg (245 lb) SpO2 97% BMI 40.77 kg/m Last 4 Encounter Wt Readings: Date: Wt: 04/03/2023 110.8 kg (244 lb 3.2 oz) 02/20/2023 110.7 kg (244 lb) 01/14/2023 113.4 kg (250 lb) 10/08/2022 108.9 kg (240 lb) PHYSICAL EXAMINATION: General appearance: Well appearing, alert, in no acute distress, well-hydrated, well nourished. Skin: Skin color, texture, turgor normal, no suspicious rashes or lesions Head: Normocephalic, no masses, lesions, tenderness or abnormalities Lungs: Lungs clear to auscultation. No wheezing, rhonchi, rales Heart: RRR without murmur, gallop, or rubs. No ectopy Abdomen: Normal abdominal exam, Abdomen soft, non-tender. Bowel sounds normal. No masses, organomegaly Extremities: No deformities, edema, skin discoloration, clubbing or cyanosis. Good capillary refill. Musculoskeletal: No joint swelling, deformity, or tenderness Peripheral pulses: Normal Neuro: Negative. ASSESSMENT/PLAN: 1. Essential hypertension - ICD9: 401.9, ICD10: I10 (primary diagnosis) - Controlled - Continue current medications 2. Other hyperlipidemia - ICD9: 272.4, ICD10: E78.49 - COMP METABOLIC PANEL - LIPID PANEL, NONFASTING 3. Hypertensive kidney disease with stage 3 chronic kidney disease, unspecified whether stage 3a or 3b CKD (HCC) - ICD9: 403.90, 585.3, ICD10: I12.9, N18.30 - Controlled - Continue current medications 4. Coronary artery disease involving mcgrath coronary artery of mcgrath heart without angina pectoris - ICD9: 414.01, ICD10: I25.10 - continue current. 5. Paroxysmal atrial fibrillation (HCC) - ICD9: 427.31, ICD10: I48.0 - CONSULT TO CARDIOLOGY 6. Abdominal aortic aneurysm (AAA) without rupture, unspecified part (HCC) - ICD9: 441.4, ICD10: I71.40 - US ABD AORTA 7. Collagenous colitis - ICD9: 558.9, ICD10: K52.831 - follow labs . 8. Lower esophageal ring - ICD9: 750.3, ICD10: K22.2 - stable. 9. Iron deficiency - ICD9: 280.9, ICD10: E61.1 - CBC + DIFF 10. Hypothyroidism, unspecified type - ICD9: 244.9, ICD10: E03.9 - TSH BLD 11. Psychogenic nonepileptic seizure - ICD9: 300.11, ICD10: F44.5 - stable. 12. Alzheimer's dementia without behavioral disturbance (HCC) - ICD9: 331.0, 294.10, ICD10: G30.9, F02.80 - CONSULT TO NEUROLOGY 13. Asymptomatic bilateral carotid artery stenosis - ICD9: 433.10, 433.30, ICD10: I65.23 Stable., - follow labs. 14. Anxiety - ICD9: 300.00, ICD10: F41.9 - no change. 15. Asymptomatic stenosis of posterior cerebral artery - ICD9: 434.90, ICD10: I66.29 - is unchanged in symptoms. Overdue for labs. - CONSULT TO NEUROLOGY 16. Vertigo - ICD9: 780.4, ICD10: R42 - CONSULT TO CARDIOLOGY - CONSULT TO NEUROLOGY - ECG COMPLETE 17. History of syncope - ICD9: V15.89, ICD10: Z87.898 - CONSULT TO CARDIOLOGY - CONSULT TO NEUROLOGY - ECG COMPLETE 18. Hyperglycemia - ICD9: 790.29, ICD10: R73.9 - HGB A1C Bal Denise MD documented in this encounter [facility] 04-10-2023 Miscellaneous Notes Patient's daughter, Antonella calling with request for MRI head that she says was discussed at for patient's complaint of headaches. She also says patient has had a couple of recent episodes of dizziness as reported to daughter by patient's neighbor. Most recent episode was yesterday. She says patient's neighbor told Antonella that patient was staggering and needed help getting into her house. The daughter said the episode didn't last long and resolved after the neighbor helped patient into the house. Patient has had no further dizziness. Daughter states there are no other symptoms except patient has been having headaches on both sides of her head which she says PCP is aware of. Advised daughter appointment needed. Scheduled with PCP on Thursday 04/12. Offered appointment tomorrow but daughter declined. Hannah Amor RN documented in this encounter [facility] 04-08-[address] [facility] 04-08-2023 History of Present illness Narrative Episode Visit Count: 2 Therapist That Will Accept/Oversee The Plan Of Care: Connor Wolfe PT Start of Care Date: 04/02/23 Onset Date: 10/03/22 Plan of Care Certification Date: 04/02/23 Next Certification Due Date: 04/30/23 Patient Identified by Name and Date of : Yes REHABILITATION [facility] SPORTS THERAPY PHYSICAL THERAPY TREATMENT NOTE ASSESSMENT: Tanya Sanchez tolerated the session with decreased endurance, fatigue, and expected muscle soreness. She demonstrated difficulty with hooklying TA activation due to fatiuge. The patient will continue to benefit from ongoing skilled physical therapy to progress toward set goals. PLAN FOR NEXT VISIT: Continue with core stabilization in hooklying. Consider adding scapular retractions. Asses response to manual lumbar traction, use pillow on thighs with next use of traction. SUBJECTIVE: Patient Reason for Visit: Pt reports that her back isn't too bad today. Pt reports that her spine hurt so bad in the middle of one night (can't remember which night) that she had to get up and move. Pt reports pain down her left leg, couldn't hardly walk this morning. Pt states most of pain is in lower portion of the leg. Pt has scabbing/wounds and redness on LLE and states her foot has been red since her dog scratched her leg about 2 weeks ago. Pain: Pain Pain Level: ( unbearable , not numerically rated) Pain Location: Low Back/Lumbar Spine - Left, Leg - Left Post Treatment Pain Post Treatment Pain Location: Low Back/Lumbar Spine - Left, Leg - Left Post Treatment Pain Description: Sore OBJECTIVE MEASURES WITH LEVEL OF FUNCTION: Difficulty with supine to sitting EOB. TREATMENT: Therapeutic Exercise: 1: supine L SKTC 3x30 seconds 2: supine DKTC 3x30 seconds 3: Hooklying TA activation via shoulder extension 1x10 with 2 second hold ( I can really feel it ) Skilled Intervention: Patient was educated in proper exercise technique and purpose for exercises. Skilled judgment was provided in selection of appropriate interventions. Correct performance of therapeutic exercises was facilitated with verbal and visual cuing. Manual Therapy: 1: manual lumbar traction with BLE elevated on physio ball( stool being used by other clinican) with caudal pull to tolerance. Skilled Intervention: Manual skills to improve joint mobility, ROM, and decrease pain. Utilized anatomy knowledge of the therapist, and assessment of patient's response to intervention. Billing Therapeutic Exercise Treatment Minutes: 30 Manual TherapyTreatment Minutes: 10 Total Treatment Time Minutes (timed/untimed): 40 Session Start Time : 1235 Session Stop Time : 1315 VALERY Hwang PT documented in this encounter [facility] 04-03-[address] [facility] 04-03-2023 History of Present illness Narrative Patient presents with: Follow Up HPI: Patient presents today for office visit for 6wk follow up for anxiety. Accompanied by her daughter. Sleeping good. Not crying as much. Gotten better. Daughter agrees. Emotions are up and down. Mind still races. When asked if she worries a lot she states she can't remember. Daughter nodded with her head, yes, she worries a lot. Memory loss. Still with decreased appetite Started drinking organic nutrition shakes. Still taking Sertraline along with Buspirone that was added at last OV. No side effects that she's aware of. Ok with ADL's Bp is a little lower today but is asymptomatic. No chest pain or shortness of breath. We will be due for follow up on AAA in the fall. She has actually started physical therapy! Symptoms are improving. Xray: IMPRESSION: COMPARED TO THE PREVIOUS EXAMINATION THE L5/S1 DISC SPACE IS DECREASED IN SIZE WHICH REMAIN PARTLY POSITIONAL. 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 FACET DEGENERATIVE CHANGES AND LUMBAR LORDOSIS IS UNCHANGED. NO CHANGE IN FUSIFORM ABDOMINAL AORTIC ANEURYSM AT THE L4 LEVEL. MEDICATIONS: Current Outpatient Medications Medication Sig tiZANidine (ZANAFLEX) 4 mg tablet Take 1 tablet by mouth every 8 hours as needed (muscle spasms). levothyroxine (SYNTHROID) 112 mcg tablet Take 1 tablet by mouth daily before breakfast. For thyroid. levothyroxine (SYNTHROID) 125 mcg tablet Take 1 tablet by mouth daily before breakfast. Except 112 mcg a day on Sat and Saturday busPIRone (BUSPAR) 5 mg tablet Take 1 tablet by mouth twice daily. ferrous sulfate 325 mg (65 mg iron) tablet Take 1 tablet by mouth twice daily with meals. pantoprazole DR (PROTONIX) 40 mg tablet Take 1 tablet by mouth twice daily. potassium chloride (K-TAB) 10 mEq tablet Take 1 tablet by mouth daily with breakfast. sertraline (ZOLOFT) 100 mg tablet Take 1 tablet by mouth once daily. famotidine (PEPCID) 20 mg tablet Take 1 tablet by mouth at bedtime as needed. budesonide, enteric coated (ENTOCORT EC) 3 mg 24 hr capsule Take 3 capsules by mouth once daily. apixaban (ELIQUIS) 5 mg tab(s) Take 1 tablet by mouth twice daily. albuterol HFA (PROVENTIL HFA, VENTOLIN HFA) 90 mcg/actuation inhaler Inhale 2 Puffs as instructed every 4 hours as needed for wheezing/shortness of breath. omeprazole (PRILOSEC) 40 mg capsule Take 1 capsule by mouth once daily. furosemide (LASIX) 40 mg tablet MELATONIN ORAL Take 10 mg by mouth. Cyanocobalamin (VITAMIN B-12) 50 mcg tab Take 1 tablet by mouth once daily. lncxoswg-axmo-DA-calcium-mins (ONE-A-DAY WOMENS FORMULA) 18 mg iron-400 mcg-500 mg Ca tab Take 1 tablet by mouth once daily. atorvastatin (LIPITOR) 20 mg tablet Take 1 tablet by mouth once daily. For cholesterol. lisinopril (PRINIVIL) 10 mg tablet Take 0.5 tablets by mouth once daily. Per Dr. Funk metoprolol tartrate, short acting, (LOPRESSOR) 50 mg tablet Take 1 tablet by mouth twice daily. Per Dr. Funk cholecalciferol (VITAMIN D3) 50 mcg (2,000 unit) tablet Take 2,000 Units by mouth once daily. nitroglycerin sublingual (NITROQUICK) 0.4 mg SL tablet Dissolve 1 tablet under the tongue every 5 minutes as needed. aspirin, enteric coated (ASPIRIN, ENTERIC COATED) 81 mg EC tablet Take 81 mg by mouth once daily. No current facility-administered medications for this visit. ALLERGIES: ALLERGIES Allergen Reactions Novocain [Procaine * Other: See Comments Blood pressure rises PAST MEDICAL HISTORY Diagnosis Date Alzheimer's dementia without behavioral disturbance (HCC) Dermatitis GERD (gastroesophageal reflux disease) Hypothyroidism Pseudoseizures Thyroid condition PAST SURGICAL HISTORY Procedure Laterality Date COLONOSCOPY FLX DX W/COLLJ SPEC WHEN PFRMD 11/16/2019 Colonoscopy EGD N/A 08/27/2016 ESOPHAGOGASTRODUODENOSCOPY TRANSORAL DIAGNOSTIC 11/16/2019 EGD PAST SURGICAL HISTORY OF 2008 coronary artery bypass two FAMILY HISTORY Adopted: Yes Problem Relation Age of Onset other (alcholoism) Father Social History Tobacco Use Smoking status: Never Smokeless tobacco: Never Vaping Use Vaping Use: Never used Substance Use Topics Alcohol use: No Drug use: No Reviewed current medications, allergies, past medical history, surgical history, family history and social history today. REVIEW OF SYSTEMS All other reviewed and negative other than HPI. VITALS: BP 98/58 Pulse 77 Ht 165.1 cm (5' 5 ) Wt 110.8 kg (244 lb 3.2 oz) SpO2 95% BMI 40.64 kg/m Last 4 Encounter Wt Readings: Date: Wt: 04/03/2023 110.8 kg (244 lb 3.2 oz) 02/20/2023 110.7 kg (244 lb) 01/14/2023 113.4 kg (250 lb) 10/08/2022 108.9 kg (240 lb) PHYSICAL EXAMINATION: General appearance: Well appearing, alert, in no acute distress, well-hydrated, well nourished. Skin: Skin color, texture, turgor normal, no suspicious rashes or lesions Head: Normocephalic, no masses, lesions, tenderness or abnormalities Lungs: Lungs clear to auscultation. No wheezing, rhonchi, rales Heart: RRR without murmur, gallop, or rubs. No ectopy Abdomen: Normal abdominal exam, Abdomen soft, non-tender. Bowel sounds normal. No masses, organomegaly Extremities: No deformities, edema, skin discoloration, clubbing or cyanosis. Good capillary refill. Musculoskeletal: No joint swelling, deformity, or tenderness ASSESSMENT/PLAN: 1. Left sided sciatica - ICD9: 724.3, ICD10: M54.32 (primary diagnosis) - continue therapy. 2. Anxiety - ICD9: 300.00, ICD10: F41.9 - increase meds. - BUSPIRONE 5 MG TABLET 3. Essential hypertension - ICD9: 401.9, ICD10: I10 - Controlled - Continue current medications Bal Denise MD documented in this encounter [facility] 04-03-[address] 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 [facility] [facility]06-26-2023 Miscellaneous Notes* Telephone Encounter - Maria Guadalupe Delgado RN - 03/04/2023 11:36 AM EDT Pt's daughter Margret calling for refills. States pt is out of these. She has been taking for leg cramps. States the medication has been helping. Pt thought she was supposed to be taking daily until she finished them. Asked Pts daughter if Pt had started PT and she said she hasn't and she doesn't think she is going to. Let Pts daughter know that the Tizanidine was PRN for muscle spasms. She statesshe will let Pt know that and poli it in red on the bottle. Patient has been identified by name and date of : Yes, Provider Dr. Denise Date 03/04/23 Time 1135 Daughter Margret phones for refill(s): Requested Prescriptions Pending Prescriptions Disp Refills tiZANidine (ZANAFLEX) 4 mg tablet 15 tablet 0 Sig: Take 1 tablet by mouth every 8 hours as needed (muscle spasms). Date of last office visit in primary care: 02/20/23 Future visit: 04/03/23 Last 2 Encounter Wt Readings: Date: Wt: 02/20/2023 110.7 kg (244 lb) 01/14/2023 113.4 kg (250 lb) Previous labs/tests for medication: Blood Pressure: BUN (mg/dL) Date Value 01/15/2023 15 10/12/2021 17 Sodium (mmol/L) Date Value 01/15/2023 142 10/12/2021 141 Last 1 Encounter BP Readings: Date: BP: 02/20/2023 130/80 Liver Function: ALT (U/L) Date Value 01/15/2023 31 10/12/2021 22 AST (U/L) Date Value 01/15/2023 24 10/12/2021 22 Please advise. Thank you. Maria Guadalupe Delgado RN [facility] Miscellaneous Notes* Telephone Encounter - Nazanin Turk LPN - 02/22/2023 9:17 AM EDT Patient has been identified by name and date of : Patient phones for refill(s): Requested Prescriptions Pending Prescriptions Disp Refills levothyroxine (SYNTHROID) 112 mcg tablet 30 tablet 5 Sig: Take 1 tablet by mouth daily before breakfast. For thyroid. Date of last office visit in primary care: 02/20/23 Last 2 Encounter Wt Readings: Date: Wt: 02/20/2023 110.7 kg (244 lb) 01/14/2023 113.4 kg (250 lb) Previous labs/tests for medication: Not applicable Please advise. Thank you. Nazanin Turk LPN [facility] Miscellaneous Notes* Telephone Encounter - Hannah Amor RN - 02/21/2023 2:04 PM EDT Spoke with patient's daughter, Antonella. Given message from provider's office. Patient's daughter verbalizes understanding. She will check her mother's meds tonite and call back if new script needed. Hannah Amor RN * Telephone Encounter - Shazia Marie - 02/21/2023 10:35 AM EDT Message left for return call for results. Shazia Marie * Telephone Encounter - Bal Denise MD - 02/21/2023 7:51 AM EDT Potassium is ok. Thyroid is now a little too much. 125 is too high. 112 is too low. Will have to try for somewhere in between. Does she still have 112 at home. Let me know if needs a new script for these Lets do 125mcg a day, except 112 on Sat and Saturday Recheck tsh in six weeks. [facility] [facility] [facility] [facility] Miscellaneous Notes* Telephone Encounter - Becki Strickland RN - 02/13/2023 2:51 PM EDT Medication refill requested by Pharmacy Please review and advise. Requested Prescriptions Pending Prescriptions Disp Refills ferrous sulfate 325 mg (65 mg iron) tablet 60 tablet 5 Sig: Take 1 tablet by mouth twice daily with meals. pantoprazole DR (PROTONIX) 40 mg tablet 180 tablet 1 Sig: Take 1 tablet by mouth twice daily. Last encounter with this provider: 01/14/2023 Next appt: Visit date not found Last 1 Encounter BP Readings: Date: BP: 01/14/2023 136/80 WBC (k/uL) Date Value 01/15/2023 4.57 Hemoglobin (g/dL) Date Value 01/15/2023 13.4 Platelet Count (k/uL) Date Value 01/15/2023 184 Glucose (mg/dL) Date Value 01/15/2023 96 BUN (mg/dL) Date Value 01/15/2023 15 Creatinine (mg/dL) Date Value 01/15/2023 1.24 (H) Sodium (mmol/L) Date Value 01/15/2023 142 Potassium (mmol/L) Date Value 01/15/2023 3.6 (L) Calcium, Total (mg/dL) Date Value 01/15/2023 9.7 Alkaline Phosphatase (U/L) Date Value 01/15/2023 104 Bilirubin, Total (mg/dL) Date Value 01/15/2023 0.6 AST (U/L) Date Value 01/15/2023 24 ALT (U/L) Date Value 01/15/2023 31 Cholesterol, Total (mg/dL) Date Value 03/22/2021 184 Triglyceride (mg/dL) Date Value 03/22/2021 151 (H) TSH (mIU/L) Date Value 01/15/2023 6.770 (H) Current Outpatient Medications on File Prior to Visit Medication Sig levothyroxine (SYNTHROID) 125 mcg tablet Take 1 tablet by mouth daily before breakfast. For thyroid. potassium chloride (K-TAB) 10 mEq tablet Take 1 tablet by mouth daily with breakfast. sertraline (ZOLOFT) 100 mg tablet Take 1 tablet by mouth once daily. tiZANidine (ZANAFLEX) 4 mg tablet Take 1 tablet by mouth every 8 hours as needed (muscle spasms). famotidine (PEPCID) 20 mg tablet Take 1 tablet by mouth at bedtime as needed. budesonide, enteric coated (ENTOCORT EC) 3 mg 24 hr capsule Take 3 capsules by mouth once daily. apixaban (ELIQUIS) 5 mg tab(s) Take 1 tablet by mouth twice daily. albuterol HFA (PROVENTIL HFA, VENTOLIN HFA) 90 mcg/actuation inhaler Inhale 2 Puffs as instructed every 4 hours as needed for wheezing/shortness of breath. pantoprazole DR (PROTONIX) 40 mg tablet Take 1 tablet by mouth twice daily. ferrous sulfate 325 mg (65 mg iron) tablet Take 1 tablet by mouth twice daily with meals. omeprazole (PRILOSEC) 40 mg capsule Take 1 capsule by mouth once daily. cholestyramine (QUESTRAN) 4 gram packet Take 1 Packet by mouth three times daily with meals. furosemide (LASIX) 40 mg tablet MELATONIN ORAL Take 10 mg by mouth. Cyanocobalamin (VITAMIN B-12) 50 mcg tab Take 1 tablet by mouth once daily. byueqvcz-vyqu-KI-calcium-mins (ONE-A-DAY WOMENS FORMULA) 18 mg iron-400 mcg-500 mg Ca tab Take 1 tablet by mouth once daily. atorvastatin (LIPITOR) 20 mg tablet Take 1 tablet by mouth once daily. For cholesterol. lisinopril (PRINIVIL) 10 mg tablet Take 0.5 tablets by mouth once daily. Per Dr. Funk metoprolol tartrate, short acting, (LOPRESSOR) 50 mg tablet Take 1 tablet by mouth twice daily. PerDr. Funk cholecalciferol (VITAMIN D3) 50 mcg (2,000 unit) tablet Take 2,000 Units by mouth once daily. nitroglycerin sublingual (NITROQUICK) 0.4 mg SL tablet Dissolve 1 tablet under the tongue every 5 minutes as needed. aspirin, enteric coated (ASPIRIN, ENTERIC COATED) 81 mg EC tablet Take 81 mg by mouth once daily. Becki Strickland RN documented in this encounterOhio [facility] [facility] Miscellaneous Notes* Telephone Encounter - Maria Guadalupe Delgado RN - 01/16/2023 10:09 AM EDT Pts daughter called and is notified of providers results and instructions. Pt voices understanding. Maria Guadalupe Delgado RN * Telephone Encounter - Oksana Quinonez Ma - 01/16/2023 8:28 AM EDT Left message for patient to call office back Oksana Quinonez Ma * Telephone Encounter - Bal Denise MD - 01/16/2023 7:58 AM EDT Labs ok except Thyroid is low. Increase synthroid, new dose sent. Recheck tsh in four to six weeks. Potassium is low, need to add potassium to her water pill. Recheck labs when we check above. documented in this encounterOhio [facility]05[facility] [facility] Miscellaneous Notes * Telephone Encounter - Naseem Campbell LPN - 01/14/2023 3:33 PM EDT GAEL 01/14/23 NOV no upcoming appt * Telephone Encounter - Jesenia De Souza Pss - 01/14/2023 3:25 PM EDT Patient has been identified by name and date of : Yes Requested Prescriptions Pending Prescriptions Disp Refills tiZANidine (ZANAFLEX) 4 mg tablet 15 tablet 0 Sig: Take 1 tablet by mouth every 8 hours as needed (muscle spasms). famotidine (PEPCID) 20 mg tablet 90 tablet 2 Sig: Take 1 tablet by mouth at bedtime as needed. RX INSTRUCTIONS: Patient aware RX will be sent to pharmacy. No need to notify patient. Jesenia De Souza Pss documented in this encounterOhio [facility]05-08-2023 Instructions* Patient Instructions* Bal Denise MD - 01/14/2023 2:54 PM EDT Take pepcid Take zanalex See dentist Consider physical therapy. documented in [facility] encounter[facility] History of Present illness Narrative* Bal Denise MD - 01/14/2023 2:24 PM EDT Patient presents with: Pain HPI: Patient presents today for office visit for complaints of jaw, B/L ear, left hip and abdominalpain. Has a clicking in her jaw and describes weird feeling in right ear. Taking Tylenol otc with not much relief. Has abdominal hernia. Complaints of pain with that. Called daughter a couple weeks ago and stated she doesn't know what to do anymore because the pain is so bad and all the time. Denies nausea or vomiting. Intermittent diarrhea. Denies bloody or black stool. Feeling fatigued. Refers to just wanting to sleep. Jaw clicking . She wears dentures but is not wearing them. Suggested she see dentist. She refuses. It is worse when moving her jaw. Ear seems to be related to the jaw. No fever or chills. No cough. She is referring to her hiatal hernia. She is still taking prilosec. She is unsure if taking her pepcid. Discussed see gi again. Had egd done by Dr. Keyes in [facility]. She declines. Complains of left hip pain. Stretches from the left buttock to the calf. She is seeing chiropractor. No xrays. Does have a leg length discrepency. Has been bothering her for years but worse over the last few weeks. No focal numbness or weakness. No issues with bowel or bladder control. Complains of fatigue. Has been for years. Moods are up and down. She is still talking her sertraline. Her daughter feels it needs increased. No suicidal ideation. No new chest pain or shortness of breath. MEDICATIONS: Current Outpatient Medications Medication Sig budesonide, enteric coated (ENTOCORT EC) 3 mg 24 hr capsule Take 3 capsules by mouth once daily. apixaban (ELIQUIS) 5 mg tab(s) Take 1 tablet by mouth twice daily. sertraline (ZOLOFT) 50 mg tablet Take 1 tablet by mouth once daily. albuterol HFA (PROVENTIL HFA, VENTOLIN HFA) 90 mcg/actuation inhaler Inhale 2 Puffs as instructed every 4 hours as needed for wheezing/shortness of breath. levothyroxine (SYNTHROID) 112 mcg tablet Take 1 tablet by mouth daily before breakfast. For thyroid. pantoprazole DR (PROTONIX) 40 mg tablet Take 1 tablet by mouth twice daily. ferrous sulfate 325 mg (65 mg iron) tablet Take 1 tablet by mouth twice daily with meals. famotidine (PEPCID) 20 mg tablet Take 1 tablet by mouth at bedtime as needed. omeprazole (PRILOSEC) 40 mg capsule Take 1 capsule by mouth once daily. tiZANidine (ZANAFLEX) 4 mg tablet Take 1 tablet by mouth every 8 hours as needed (muscle spasms). cholestyramine (QUESTRAN) 4 gram packet Take 1 Packet by mouth three times daily with meals. furosemide (LASIX) 40 mg tablet MELATONIN ORAL Take 10 mg by mouth. Cyanocobalamin (VITAMIN B-12) 50 mcg tab Take 1 tablet by mouth once daily. lhqpnivh-span-ON-calcium-mins (ONE-A-DAY WOMENS FORMULA) 18 mg iron-400 mcg-500 mg Ca tab Take 1 tablet by mouth once daily. atorvastatin (LIPITOR) 20 mg tablet Take 1 tablet by mouth once daily. For cholesterol. lisinopril (PRINIVIL) 10 mg tablet Take 0.5 tablets by mouth once daily. Per Dr. Funk metoprolol tartrate, short acting, (LOPRESSOR) 50 mg tablet Take 1 tablet by mouth twice daily. PerDr. Funk cholecalciferol (VITAMIN D3) 50 mcg (2,000 unit) tablet Take 2,000 Units by mouth once daily. nitroglycerin sublingual (NITROQUICK) 0.4 mg SL tablet Dissolve 1 tablet under the tongue every 5 minutes as needed. aspirin, enteric coated (ASPIRIN, ENTERIC COATED) 81 mg EC tablet Take 81 mg by mouth once daily. Current Facility-Administered Medications Medication Dose Route Frequency loperamide 2 mg cap(s) (IMODIUM) 2 mg ORAL q 6 H PRN ALLERGIES: ALLERGIES Allergen Reactions Novocain [Procaine * Other: See Comments Blood pressure rises PAST MEDICAL HISTORY Diagnosis Date Alzheimer's dementia without behavioral disturbance (HCC) Dermatitis GERD (gastroesophageal reflux disease) Hypothyroidism Pseudoseizures Thyroid condition PAST SURGICAL HISTORY Procedure Laterality Date COLONOSCOPY FLX DX W/COLLJ SPEC WHEN PFRMD 11/16/2019 Colonoscopy EGD N/A 08/27/2016 ESOPHAGOGASTRODUODENOSCOPY TRANSORAL DIAGNOSTIC 11/16/2019 EGD PAST SURGICAL HISTORY OF 2007 coronary artery bypass two FAMILY HISTORY Adopted: Yes Problem Relation Age of Onset other (alcholoisyanni) Father Social History Tobacco Use Smoking status: Never Smokeless tobacco: Never Vaping Use Vaping Use: Never used Substance Use Topics Alcohol use: No Drug use: No Reviewed current medications, allergies, past medical history, surgical history, family history andsocial history today. REVIEW OF SYSTEMS All other reviewed and negative other than HPI. VITALS: BP 136/80 Pulse 75 Ht 165.1 cm (5' 5 ) Wt 113.4 kg (250 lb) SpO2 96% BMI 41.60 kg/m Last 4 Encounter Wt Readings: Date: Wt: 10/08/2022 108.9 kg (240 lb) 06/27/2022 109.6 kg (241 lb 9.6 oz) 06/18/2022 108 kg (238 lb) 06/11/2022 108.9 kg (240 lb) PHYSICAL EXAMINATION: General appearance: Well appearing, alert, in no acute distress, well-hydrated, well nourished. Skin: Skin color, texture, turgor normal, no suspicious rashes or lesions Head: Normocephalic, no masses, lesions, tenderness or abnormalities Eyes: Anicteric sclera. Pupils are equally round and reactive to light. Extraocular movements are intact. Ears: External ears normal, canals clear Nose/Sinuses: Nares normal, septum midline, mucosa normal, no drainage or sinus tenderness Oropharynx: crepitus in jaw. Recommended see dentist Neck: Supple, no adenopathy; thyroid symmetric, normal size, no bruits BACK: Normal curvature of spine. No spine tenderness. Straight leg test negative. Deep tendon reflexes 2+/4 at patellas. Normal lower extremity strength. Negative figure four Lungs: Lungs clear to auscultation. No wheezing, rhonchi, rales Heart: RRR without murmur, gallop, or rubs. No ectopy Abdomen: Normal abdominal exam, Abdomen soft, non-tender. Bowel sounds normal. No masses, organomegaly Extremities: No deformities, edema, skin discoloration, clubbing or cyanosis. Good capillary refill. ASSESSMENT/PLAN: 1. Left sided sciatica - ICD9: 724.3, ICD10: M54.32 (primary diagnosis) - use her zanaflex. Recommended physical therapy - XR LUMBAR GENERAL 3V AP/LAT/L5-S1 2. 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 GERD without esophagitis - ICD9: 530.81, ICD10: K21.9 - add pepcid. 4. Hiatal hernia - ICD9: 553.3, ICD10: K44.9 5. Fatigue, unspecified type - ICD9: 780.79, ICD10: R53.83 - increase meds. Follow up in one month - TSH BLD - CBC + DIFF - COMP METABOLIC PANEL - SERTRALINE 100 MG TABLET 6. Anxiety with depression - ICD9: 300.4, ICD10: F41.8 - SERTRALINE 100 MG TABLET Bal Denise MD documented in this encounterOhio [facility] History of Present illness Narrative* Lizette Dykes RN - 03/19/2023 11:37 AM EDT [facility] Telephonic Outreach Provider Action/FYI Daughter Antonella trying to convince patient to go to Physical Therapy for sciatica Started Buspirone - patient feeling less anxiety. Reminded patient about [facility] at Home Nurse Line. Antonella moving out of state, contact Susan starting in April Contacted for: Routine Telephonic Outreach Contact made with patient: Yes Patient identified by name and date of . Discussed care with daughter Are you experiencing any new or worsening symptoms you need to talk about today? Yes Based on health assessment and treatment teacher, the following disposition is advised: No symptoms or symptoms present, not severe. Routed to: No Action Needed TERESA Education Provided this Outreach: No Lizette Dykes RN March 19, 2023 2:06 PM * Lizette Dykes RN - 03/19/2023 8:19 AM EDT [facility] Telephonic Outreach Provider Action/FYI Contacted for: Routine Telephonic Outreach Contact made with patient: No, left message. Lizette Dykes RN March 19, 2023 11:36 AM Antonella asked for call back in an hour documented in this encounterOhio State [facility]ing [facility]05-01-2023 History of Present illness Narrative* Lizette Dykes RN - 05/20/2023 4:56 PM EDT Care Coordination Deferred Outreach Provider Action / FYI: Deferred outreach to patient at this time due to: Visit with provider today Next Outreach date: 06/12/23 after 2 appointments with MD Lizette Jarquin RN May 20, 2023 4:56 PM documented in this encounterOhio [facility]05-01-2023 History of Present illness Narrative* Lizette Dykes RN - 06/14/2023 9:10 AM EDT Care Coordination Deferred Outreach Provider Action / FYI: At next [facility] Telephonic Outreach follow up on: Last [facility] CDM contact 04/24/23 Katie Dykes RN. Multiple FAMP and NEURO visits since then. Deferred outreach to patient at this time due to: Visit with provider today Next Outreach date: 07/03/23 after FAMP and NEURO visits Lizette Dykes RN June 14, 2023 9:10 AM documented in this encounterOhio [facility]05-01-[facility]23 History of Present illness Narrative* Lizette Dykes RN - 07/08/2023 1:51 PM EDT CD Telephonic Outreach Provider Action/FYI At next [facility] Telephonic Outreach follow up on: Daughter Antonella relayed the following update: 06/28/23 outside [facility] Emergency Department visit for dog scratch /skin tear - skin still healing. Reminded of [facility] @ [facility]. Leg pain interferes with ability to walk - multiple diagnostics and provider appointments. Patient not tolerating higher dose of gabapentin - 07/11/23 FAMP follow up appointment with AIDE Davidson Contacted for: Routine Telephonic Outreach Contact made with patient: Yes Patient identified by name and date of . Discussed care with daughter Are you experiencing any new or worsening symptoms you need to talk about today? Yes Based on health assessment and treatment teacher, the following disposition is advised: No symptoms or symptoms present, not severe. Routed to: No Action Needed TERESA Education Provided this Outreach: No Lizette Dykes RN July 08, 2023 3:25 PM documented in this encounterOhio State [facility]ing [facility]04-10-[address] [facility]20[facility] History of Present illness Narrative* Lizette Dykes RN - 12/17/2022 8:38 AM EDT [facility]IGHT [facility] TELEPHONIC OUTREACH Provider Action/FYI: Spoke with patient's daughter Antonella and validated involvement in this patient's care. 11/21/22 Bal Denise MD appointment canceled and not rescheduled - patient does not want to reschedule at this time. Patient is drinking less coffee and more water. No other concerns or questions today. Contact made with patient: Yes Patient identified by name and . Discussed care with daughter It s nice talking to you again. As a reminder, this is our bi-weekly check-in where I will be asking you questions about your health. This will only take a few minutes of your time. Is this a good time? Yes Symptoms What Chronic Disease(s) does the patient have: CKD Do you check your blood pressures at home? No Do you have new or worse shortness of breath with activity? No Do you feel like you are dehydrated for any reason, including not being able to eat or drink normally, or having less urine/much darker urine than normal for you? No Do you check your daily weight at home? No Are you having any other symptoms that your PCP needs to know about? No Symptoms: Symptom Escalation TERESA Education Ordered -: No The patient required an escalation for symptom(s)? No Medications Do you have any questions about taking your medication or which medications you should be on? No Do you need any medication refills at this time, including any of the medications you might take only when needed? No Social We would like to make sure you have what you need so that your basic needs are met- including your personal safety, food, housing, transportation and medications? Would you like to speak with a social work steam service inspector to help give you support for any of these needs? No It can be normal to feel anxious or down during a time like this. Would you like to talk to a mental health professional about how you have been feeling? No Closing Thank you for taking the time to talk with me today. We want to work with you to ensure that we arekeeping your medical condition(s) well-controlled and to keep you healthy and out of the doctor's office or hospital. It s also not too late for me to sign you up for automated weekly questionnaires through [employer]. This is an easy way for us to stay connected each week. Are you interested? No, I understand. We can always sign you up in the future if you change your mind. Just as a reminder, will continue to call you every other week to check in on your health. Our calls should take 10-15 minutes or less. Remember, if you have concerns in between our calls, please call your PCP's office right away. Thank you. Enter next patient outreach date for two weeks on the same day of the week as today in the Track PtOutreach and End outreach. * Lizette Dykes RN - 12/14/2022 4:02 PM EDT INSIGHT CDM TELEPHONIC OUTREACH Provider Action/I: Contact made with patient: No - Left message Rosario my name is Lizette Dykes RN your Investigator Cash [facility] [facility] I am calling today for your bi-weekly check in. I am sorry I missed your call. I will reach out to you again tomorrow. (if the third call I will reach out to you again next week) Enter next patient outreach date for the following using the Track Pt Outreach. End outreach. documented in this encounterOhio State [facility]ing [facility]04-07-[address] [facility]04-04-[address] 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 N/A Reason for Outreach HCC or suspected condition Payer: Payor: [employer] / Plan: [employer] HMO / Product Type: HMO / Care Gap Reviewed:: Annual Wellness visit Reminder: Reminder note to check Health Maintenance for items below Health Maintenance items due: COVID-19 VACCINE(1) Never done HEPATITIS C SCREENING Never done SHINGRIX VACCINE(1 of 2) Never done BONE DENSITY Never done PNEUMOCOCCAL: 65+(1 - PCV) Never done LDL CHOLESTEROL due on 03/22/2022 Navigation Signature: Crys cOonnell MA December 11, 2022 12:43 PM documented in this encounterOhio State [facility]ing [facility]03-10-2023 Miscellaneous Notes* Telephone Encounter - Saida Conroy RN - 11/16/2022 9:45 AM EST Last Office Visit: 10/08/2022 Future Office Visit: 11/21/2022 Requested Prescriptions Pending Prescriptions Disp Refills budesonide, enteric coated (ENTOCORT EC) 3 mg 24 hr capsule 90 capsule 5 Sig: Take 3 capsules by mouth once daily. apixaban (ELIQUIS) 5 mg tab(s) 60 tablet 5 Sig: Take 1 tablet by mouth twice daily. sertraline (ZOLOFT) 50 mg tablet 30 tablet 3 Sig: Take 1 tablet by mouth once daily. Date of Last Labs: 05/11/2022 documented in this encounterOhio State [facility]ing Hospital02-23-[address] [facility]02-23-[address] [facility]02-23-2023 History of Present illness Narrative* Luis Jin - 11/01/2022 1:08 PM EST Tanya Sanchez is identified through a medication adherence outreach initiative based on pharmacy claims data from Medicare (insurer) for Statin medication(s). Patient is reviewed 11/01/22 due to medication adherence concerns with the following medications (name, strength, sig): lipitor 20-mg. Per data/report, last fill date and days supply: 10/24/22 28 day tablet Per reconcile dispense, last fill date and days supply: 10/24/22 28 day tablet Contacted patient: Spoke to patient Patient is identified by Name and . Discussion on adherence consisted of - Patient has filled prescription on 10/24/2022 Any need for new prescription (I.e. out of refills on most recent prescription) YES/NO/Active: no The Patient verbalizes understanding and denies further questions/concerns at this time. Outcome of review/outreach: (choose outcome source and status) - Filled before Next fill date per reconcile dispense and per call to patient/caregiver Luis Jin * Lokesh Wolfe RPh - 11/01/2022 1:08 PM EST The patient's case was discussed with the student who saw the patient with me. Spencer elements of history confirmed during visit. Agree with findings and plan as outlined by the student. My additions to the note are underlined. Lokesh Wolfe, PharmD, MEd, BCPS, CDCES documented in this encounterOhio State [facility]ing Hospital02-15-2023 Miscellaneous Notes* Telephone Encounter - Maria Guadalupe Delgado RN - 10/24/2022 10:23 AM EST December nurse PRUITT with [employer] called to let provider know that Pt care plans are available on the [employer] provider portal. She states they are going to have a patient lounge on November 08 at 4 pm telephonically. If provider would like to attend you can call [phone] opt. 1 or through e-mail at [email or web address]. documented in this encounterOhio State Harding Hospital02-13-[address] [facility]02-13-2023 History of Present illness Narrative* Lizette Dykes RN - 10/22/2022 1:35 PM EST INSIGHT CD TELEPHONIC OUTREACH Provider Action/FYI: Spoke with patient's daughter Antonella and validated involvement in this patient's care. Patient completed antibiotics, patient took part of prednisone and only used inhaler a few times. Patient doesn't like taking medicine. Wound healed - no further appointments with wound clinic. Has [facility]ENE follow up appointment 12/07/22 - has CARD in January. 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 PER DISCUSSION WITH DTR , NEXT CDM OUTREACH AFTER 12/07/22 IRENE APPOINTMENT Since previous CDM Telephonic Outreach: 10/08/22 Bal Denise MD visit for cough/bronchitis Prescribed prednisone, albuterol inhaler and doxycycline Chest xray OK, negative for covid and flu Appointments for Next 60 Days Date Time Provider Location Dept Phone 11/21/2022 11:00 AM BAL DENISE [facility] [phone] Contact made with patient: Yes Patient identified by name and . Discussed care with daughter It s nice talking to you again. As a reminder, this is our bi-weekly check-in where I will be asking you questions about your health. This will only take a few minutes of your time. Is this a good time? Yes Symptoms What Chronic Disease(s) does the patient have: CKD Do you check your blood pressures at home? No Do you have new or worse shortness of breath with activity? No Do you feel like you are dehydrated for any reason, including not being able to eat or drink normally, or having less urine/much darker urine than normal for you? No Do you check your daily weight at home? No Are you having any other symptoms that your PCP needs to know about? No Symptoms: Symptom Escalation TERESA Education Ordered -: No The patient required an escalation for symptom(s)? No Medications Do you have any questions about taking your medication or which medications you should be on? No Do you need any medication refills at this time, including any of the medications you might take only when needed? No Social We would like to make sure you have what you need so that your basic needs are met- including your personal safety, food, housing, transportation and medications? Would you like to speak with a social work steam service inspector to help give you support for any of these needs? No It can be normal to feel anxious or down during a time like this. Would you like to talk to a mental health professional about how you have been feeling? No Closing Thank you for taking the time to talk with me today. We want to work with you to ensure that we arekeeping your medical condition(s) well-controlled and to keep you healthy and out of the doctor's office or hospital. It s also not too late for me to sign you up for automated weekly questionnaires through [employer]. This is an easy way for us to stay connected each week. Are you interested? No, I understand. We can always sign you up in the future if you change your mind. Just as a reminder, will continue to call you every other week to check in on your health. Our calls should take 10-15 minutes or less. Remember, if you have concerns in between our calls, please call your PCP's office right away. Thank you. Enter next patient outreach date for two weeks on the same day of the week as today in the Track PtOutreach and End outreach. documented in this encounterOhio State [facility]ing Hospital01-31-2023 Miscellaneous Notes* Telephone Encounter - Yanni Loo RN - 10/09/2022 9:11 AM EST Notified daughter, Antonella, of provider's message. * Telephone Encounter - Bal Denise MD - 10/09/2022 7:53 AM EST Family cannot access her my chart. Let them know her covid and flu results are negative. documented in this encounterOhio State Harding Hospital01-30-2023 History of Past illness Narrative* Problem Noted Date Diagnosed Date Resolved Date Chest pain 10/08/2022 04/12/2023 Shortness of breath 10/08/2022 04/12/20 23 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 09/09/2022 04/12/2023 Fatigue 03/26/2022 04/12/2023 Obesity, Class II, BMI 35-39.9 09/15/2019 06/23/2020 Thyroid condition 09/18/2021 documented as of this encounter (statuses as of 04/15/2023) [facility] of Past illness Narrative* Problem Noted Date Diagnosed Date Resolved Date Chest pain 10/08/2022 04/12/2023 Shortness of breath 10/08/2022 04/12/20 23 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 09/09/2022 04/12/2023 Fatigue 03/26/2022 04/12/2023 Obesity, Class II, BMI 35-39.9 09/15/2019 06/23/2020 Thyroid condition 09/18/2021 documented as of this encounter (statuses as of 04/22/2023) [facility] of Past illness Narrative* Problem Noted Date Diagnosed Date Resolved Date Chest pain 10/08/2022 04/12/2023 Shortness of breath 10/08/2022 04/12/20 23 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 09/09/2022 04/12/2023 Fatigue 03/26/2022 04/12/2023 Obesity, Class II, BMI 35-39.9 09/15/2019 06/23/2020 Thyroid condition 09/18/2021 documented as of this encounter (statuses as of 04/23/2023) [facility] of [facility] Narrative* Problem Noted Date Diagnosed Date Resolved Date Chest pain 10/08/2022 04/12/2023 Shortness of breath 10/08/2022 04/12/20 23 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 09/09/2022 04/12/2023 Fatigue 03/26/2022 04/12/2023 Obesity, Class II, BMI 35-39.9 09/15/2019 06/23/2020 Thyroid condition 09/18/2021 documented as of this encounter (statuses as of 04/25/2023) [facility] of [facility] Narrative* Problem Noted Date Diagnosed Date Resolved Date Chest pain 10/08/2022 04/12/2023 Shortness of breath 10/08/2022 04/12/20 23 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 09/09/2022 04/12/2023 Fatigue 03/26/2022 04/12/2023 Obesity, Class II, BMI 35-39.9 09/15/2019 06/23/2020 Thyroid condition 09/18/2021 documented as of this encounter (statuses as of 04/29/2023) [facility] Narrative* Problem Noted Date Diagnosed Date Resolved Date Chest pain 10/08/2022 04/12/2023 Shortness of breath 10/08/2022 04/12/20 23 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 09/09/2022 04/12/2023 Fatigue 03/26/2022 04/12/2023 Obesity, Class II, BMI 35-39.9 09/15/2019 06/23/2020 Thyroid condition 09/18/2021 documented as of this encounter (statuses as of 04/30/2023) [facility] Narrative* Problem Noted Date Diagnosed Date Resolved Date Chest pain 10/08/2022 04/12/2023 Shortness of breath 10/08/2022 04/12/20 23 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 09/09/2022 04/12/2023 Fatigue 03/26/2022 04/12/2023 Obesity, Class II, BMI 35-39.9 09/15/2019 06/23/2020 Thyroid condition 09/18/2021 documented as of this encounter (statuses as of 05/01/2023) [facility] Narrative* Problem Noted Date Diagnosed Date Resolved Date Chest pain 10/08/2022 04/12/2023 Shortness of breath 10/08/2022 04/12/20 23 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 09/09/2022 04/12/2023 Fatigue 03/26/2022 04/12/2023 Obesity, Class II, BMI 35-39.9 09/15/2019 06/23/2020 Thyroid condition 09/18/2021 documented as of this encounter (statuses as of 05/21/2023) [facility] Narrative* Problem Noted Date Diagnosed Date Resolved Date Chest pain 10/08/2022 04/12/2023 Shortness of breath 10/08/2022 04/12/20 23 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 09/09/2022 04/12/2023 Fatigue 03/26/2022 04/12/2023 Obesity, Class II, BMI 35-39.9 09/15/2019 06/23/2020 Thyroid condition 09/18/2021 documented as of this encounter (statuses as of 05/21/2023) [facility] Narrative* Problem Noted Date Diagnosed Date Resolved Date Chest pain 10/08/2022 04/12/2023 Shortness of breath 10/08/2022 04/12/20 23 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 09/09/2022 04/12/2023 Fatigue 03/26/2022 04/12/2023 Obesity, Class II, BMI 35-39.9 09/15/2019 06/23/2020 Thyroid condition 09/18/2021 documented as of this encounter (statuses as of 05/21/2023) [facility] Narrative* Problem Noted Date Diagnosed Date Resolved Date Chest pain 10/08/2022 04/12/2023 Shortness of breath 10/08/2022 04/12/20 23 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 09/09/2022 04/12/2023 Fatigue 03/26/2022 04/12/2023 Obesity, Class II, BMI 35-39.9 09/15/2019 06/23/2020 Thyroid condition 09/18/2021 documented as of this encounter (statuses as of 05/25/2023) [facility] Narrative* Problem Noted Date Diagnosed Date Resolved Date Chest pain 10/08/2022 04/12/2023 Shortness of breath 10/08/2022 04/12/20 23 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 09/09/2022 04/12/2023 Fatigue 03/26/2022 04/12/2023 Obesity, Class II, BMI 35-39.9 09/15/2019 06/23/2020 Thyroid condition 09/18/2021 documented as of this encounter (statuses as of 06/15/2023) [facility] Narrative* Problem Noted Date Diagnosed Date Resolved Date Chest pain 10/08/2022 04/12/2023 Shortness of breath 10/08/2022 04/12/20 23 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 09/09/2022 04/12/2023 Fatigue 03/26/2022 04/12/2023 Obesity, Class II, BMI 35-39.9 09/15/2019 06/23/2020 Thyroid condition 09/18/2021 documented as of this encounter (statuses as of 06/15/2023) [facility]-30[facility]23 History of Past illness Narrative* Problem Noted Date Diagnosed Date Resolved Date Chest pain 10/08/2022 04/12/2023 Shortness of breath 10/08/2022 04/12/20 23 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 09/09/2022 04/12/2023 Fatigue 03/26/2022 04/12/2023 Obesity, Class II, BMI 35-39.9 09/15/2019 06/23/2020 Thyroid condition 09/18/2021 documented as of this encounter (statuses as of 06/19/2023) [facility] History of Past illness Narrative* Problem Noted Date Diagnosed Date Resolved Date Chest pain 10/08/2022 04/12/2023 Shortness of breath 10/08/2022 04/12/20 23 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 09/09/2022 04/12/2023 Fatigue 03/26/2022 04/12/2023 Obesity, Class II, BMI 35-39.9 09/15/2019 06/23/2020 Thyroid condition 09/18/2021 documented as of this encounter (statuses as of 06/28/2023) [facility] History of Past illness Narrative* Problem Noted Date Diagnosed Date Resolved Date Chest pain 10/08/2022 04/12/2023 Shortness of breath 10/08/2022 04/12/20 23 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 09/09/2022 04/12/2023 Fatigue 03/26/2022 04/12/2023 Obesity, Class II, BMI 35-39.9 09/15/2019 06/23/2020 Thyroid condition 09/18/2021 documented as of this encounter (statuses as of 07/05/2023) [facility] History of Past illness Narrative* Problem Noted Date Diagnosed Date Resolved Date Chest pain 10/08/2022 04/12/2023 Shortness of breath 10/08/2022 04/12/20 23 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 09/09/2022 04/12/2023 Fatigue 03/26/2022 04/12/2023 Obesity, Class II, BMI 35-39.9 09/15/2019 06/23/2020 Thyroid condition 09/18/2021 documented as of this encounter (statuses as of 07/05/2023) [facility] History of Past illness Narrative* Problem Noted Date Diagnosed Date Resolved Date Chest pain 10/08/2022 04/12/2023 Shortness of breath 10/08/2022 04/12/20 23 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 09/09/2022 04/12/2023 Fatigue 03/26/2022 04/12/2023 Obesity, Class II, BMI 35-39.9 09/15/2019 06/23/2020 Thyroid condition 09/18/2021 documented as of this encounter (statuses as of 07/05/2023) [facility] History of Past illness Narrative* Problem Noted Date Diagnosed Date Resolved Date Chest pain 10/08/2022 04/12/2023 Shortness of breath 10/08/2022 04/12/20 23 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 09/09/2022 04/12/2023 Fatigue 03/26/2022 04/12/2023 Obesity, Class II, BMI 35-39.9 09/15/2019 06/23/2020 Thyroid condition 09/18/2021 documented as of this encounter (statuses as of 07/09/2023) [facility] History of Past illness Narrative* Problem Noted Date Diagnosed Date Resolved Date Chest pain 10/08/2022 04/12/2023 Shortness of breath 10/08/2022 04/12/20 23 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 09/09/2022 04/12/2023 Fatigue 03/26/2022 04/12/2023 Obesity, Class II, BMI 35-39.9 09/15/2019 06/23/2020 Thyroid condition 09/18/2021 documented as of this encounter (statuses as of 07/13/2023) [facility] History of Past illness Narrative* Problem Noted Date Diagnosed Date Resolved Date Chest pain 10/08/2022 04/12/2023 Shortness of breath 10/08/2022 04/12/20 23 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 09/09/2022 04/12/2023 Fatigue 03/26/2022 04/12/2023 Obesity, Class II, BMI 35-39.9 09/15/2019 06/23/2020 Thyroid condition 09/18/2021 documented as of this encounter (statuses as of 07/14/2023) [facility] History of Past illness Narrative* Problem Noted Date Diagnosed Date Resolved Date Chest pain 10/08/2022 04/12/2023 Shortness of breath 10/08/2022 04/12/20 23 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 09/09/2022 04/12/2023 Fatigue 03/26/2022 04/12/2023 Obesity, Class II, BMI 35-39.9 09/15/2019 06/23/2020 Thyroid condition 09/18/2021 documented as of this encounter (statuses as of 07/18/2023) [facility] History of Past illness Narrative* Problem Noted Date Diagnosed Date Resolved Date Chest pain 10/08/2022 04/12/2023 Shortness of breath 10/08/2022 04/12/20 23 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 09/09/2022 04/12/2023 Fatigue 03/26/2022 04/12/2023 Obesity, Class II, BMI 35-39.9 09/15/2019 06/23/2020 Thyroid condition 09/18/2021 documented as of this encounter (statuses as of 07/18/2023) [facility] History of Past illness Narrative* Problem Noted Date Diagnosed Date Resolved Date Chest pain 10/08/2022 04/12/2023 Shortness of breath 10/08/2022 04/12/20 23 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 09/09/2022 04/12/2023 Cellulitis, unspecified 04/02/202207/10 Fatigue 03/26/2022 04/12/2023 Obesity, Class II, BMI 35-39.9 09/15/2019 06/23/2020 Thyroid condition 09/18/2021 documented as of this encounter (statuses as of 07/24/2023) [facility] History of Past illness Narrative* Problem Noted Date Diagnosed Date Resolved Date Chest pain 10/08/2022 04/12/2023 Shortness of breath 10/08/2022 04/12/20 23 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 09/09/2022 04/12/2023 Cellulitis, unspecified 04/02/202207/10 Fatigue 03/26/2022 04/12/2023 Obesity, Class II, BMI 35-39.9 09/15/2019 06/23/2020 Thyroid condition 09/18/2021 documented as of this encounter (statuses as of 07/26/2023) [facility] History of Past illness Narrative* Problem Noted Date Diagnosed Date Resolved Date Chest pain 10/08/2022 04/12/2023 Shortness of breath 10/08/2022 04/12/20 23 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 09/09/2022 04/12/2023 Cellulitis, unspecified 04/02/202207/10 Fatigue 03/26/2022 04/12/2023 Obesity, Class II, BMI 35-39.9 09/15/2019 06/23/2020 Thyroid condition 09/18/2021 documented as of this encounter (statuses as of 07/26/2023) [facility] History of Past illness Narrative* Problem Noted Date Diagnosed Date Resolved Date Chest pain 10/08/2022 04/12/2023 Shortness of breath 10/08/2022 04/12/20 23 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 09/09/2022 04/12/2023 Cellulitis, unspecified 04/02/202207/10 Fatigue 03/26/2022 04/12/2023 Obesity, Class II, BMI 35-39.9 09/15/2019 06/23/2020 Thyroid condition 09/18/2021 documented as of this encounter (statuses as of 07/30/2023) [facility] History of Past illness Narrative* Problem Noted Date Diagnosed Date Resolved Date Chest pain 10/08/2022 04/12/2023 Shortness of breath 10/08/2022 04/12/20 23 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 09/09/2022 04/12/2023 Cellulitis, unspecified 04/02/202207/10 Fatigue 03/26/2022 04/12/2023 Obesity, Class II, BMI 35-39.9 09/15/2019 06/23/2020 Thyroid condition 09/18/2021 documented as of this encounter (statuses as of 07/31/2023) [facility] History of Past illness Narrative* Problem Noted Date Diagnosed Date Resolved Date Chest pain 10/08/2022 04/12/2023 Shortness of breath 10/08/2022 04/12/20 23 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 09/09/2022 04/12/2023 Cellulitis, unspecified 04/02/202207/10 Fatigue 03/26/2022 04/12/2023 Obesity, Class II, BMI 35-39.9 09/15/2019 06/23/2020 Thyroid condition 09/18/2021 documented as of this encounter (statuses as of 08/02/2023) [facility] History of Past illness Narrative* Problem Noted Date Diagnosed Date Resolved Date Chest pain 10/08/2022 04/12/2023 Shortness of breath 10/08/2022 04/12/20 23 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 09/09/2022 04/12/2023 Cellulitis, unspecified 04/02/202207/10 Fatigue 03/26/2022 04/12/2023 Obesity, Class II, BMI 35-39.9 09/15/2019 06/23/2020 Thyroid condition 09/18/2021 documented as of this encounter (statuses as of 08/05/2023) [facility] History of Past illness Narrative* Problem Noted Date Diagnosed Date Resolved Date Chest pain 10/08/2022 04/12/2023 Shortness of breath 10/08/2022 04/12/20 23 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 09/09/2022 04/12/2023 Cellulitis, unspecified 04/02/202207/10 Fatigue 03/26/2022 04/12/2023 Obesity, Class II, BMI 35-39.9 09/15/2019 06/23/2020 Thyroid condition 09/18/2021 documented as of this encounter (statuses as of 08/07/2023) [facility] History of Past illness Narrative* Problem Noted Date Diagnosed Date Resolved Date Chest pain 10/08/2022 04/12/2023 Shortness of breath 10/08/2022 04/12/20 23 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 09/09/2022 04/12/2023 Cellulitis, unspecified 04/02/202207/10 Fatigue 03/26/2022 04/12/2023 Obesity, Class II, BMI 35-39.9 09/15/2019 06/23/2020 Thyroid condition 09/18/2021 documented as of this encounter (statuses as of 08/13/2023) [facility] History of Past illness Narrative* Problem Noted Date Diagnosed Date Resolved Date Chest pain 10/08/2022 04/12/2023 Shortness of breath 10/08/2022 04/12/20 23 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 09/09/2022 04/12/2023 Cellulitis, unspecified 04/02/202207/10 Fatigue 03/26/2022 04/12/2023 Obesity, Class II, BMI 35-39.9 09/15/2019 06/23/2020 Thyroid condition 09/18/2021 documented as of this encounter (statuses as of 08/22/2023) [facility] History of Past illness Narrative* Problem Noted Date Diagnosed Date Resolved Date Chest pain 10/08/2022 04/12/2023 Shortness of breath 10/08/2022 04/12/20 23 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 Patient verbalizes understanding. Edwina Martino Ma * Telephone Encounter - Bal Denise MD - 10/08/2022 11:21 AM EST They do not have access to her my chart. Call her daughter and let her know chest xray was ok. [facility] [facility] [facility] History of Present illness Narrative* Bal Denise MD - 10/08/2022 8:11 AM EST Patient presents with: Cough HPI: Patient presents today for office visit for cough that started on 10/04/22. Slept withthe window open on Saturday night and woke up with a cough. Non-productive. Has rattling in chest with wheezing. Coughing is constant. No worse at night than during the day. States abdomen hurts from coughing so hard. Started on . Denies chest pain and shortness of breath. No fever or chills. Cough is nonproductive. Stomach is sore from cough. No vomiting or new diarrhea. No covid or flu vaccines. Using tylenol or otc cough meds. MEDICATIONS: Current Outpatient Medications Medication Sig levothyroxine (SYNTHROID) 112 mcg tablet Take 1 tablet by mouth daily before breakfast. For thyroid. pantoprazole DR (PROTONIX) 40 mg tablet Take 1 tablet by mouth twice daily. ferrous sulfate 325 mg (65 mg iron) tablet Take 1 tablet by mouth twice daily with meals. sertraline (ZOLOFT) 50 mg tablet Take 1 tablet by mouth once daily. apixaban (ELIQUIS) 5 mg tab(s) Take 1 tablet by mouth twice daily. budesonide, enteric coated (ENTOCORT EC) 3 mg 24 hr capsule Take 3 capsules by mouth once daily. famotidine (PEPCID) 20 mg tablet Take 1 tablet by mouth at bedtime as needed. omeprazole (PRILOSEC) 40 mg capsule Take 1 capsule by mouth once daily. tiZANidine (ZANAFLEX) 4 mg tablet Take 1 tablet by mouth every 8 hours as needed (muscle spasms). cholestyramine (QUESTRAN) 4 gram packet Take 1 Packet by mouth three times daily with meals. furosemide (LASIX) 40 mg tablet MELATONIN ORAL Take 10 mg by mouth. Cyanocobalamin (VITAMIN B-12) 50 mcg tab Take 1 tablet by mouth once daily. gjiytkus-cqih-IC-calcium-mins (ONE-A-DAY WOMENS FORMULA) 18 mg iron-400 mcg-500 mg Ca tab Take 1 tablet by mouth once daily. atorvastatin (LIPITOR) 20 mg tablet Take 1 tablet by mouth once daily. For cholesterol. lisinopril (PRINIVIL) 10 mg tablet Take 0.5 tablets by mouth once daily. Per Dr. Funk metoprolol tartrate, short acting, (LOPRESSOR) 50 mg tablet Take 1 tablet by mouth twice daily. PerDr. Funk cholecalciferol (VITAMIN D3) 50 mcg (2,000 unit) tablet Take 2,000 Units by mouth once daily. nitroglycerin sublingual (NITROQUICK) 0.4 mg SL tablet Dissolve 1 tablet under the tongue every 5 minutes as needed. aspirin, enteric coated (ASPIRIN, ENTERIC COATED) 81 mg EC tablet Take 81 mg by mouth once daily. Current Facility-Administered Medications Medication Dose Route Frequency loperamide 2 mg cap(s) (IMODIUM) 2 mg ORAL q 6 H PRN ALLERGIES: ALLERGIES Allergen Reactions Novocain [Procaine * Other: See Comments Blood pressure rises PAST MEDICAL HISTORY Diagnosis Date Alzheimer's dementia without behavioral disturbance (HCC) Dermatitis GERD (gastroesophageal reflux disease) Hypothyroidism Pseudoseizures (HCC) Thyroid condition PAST SURGICAL HISTORY Procedure Laterality Date COLONOSCOPY FLX DX W/COLLJ SPEC WHEN PFRMD 11/16/2019 Colonoscopy EGD N/A 08/27/2016 ESOPHAGOGASTRODUODENOSCOPY TRANSORAL DIAGNOSTIC 11/16/2019 EGD PAST SURGICAL HISTORY OF 2007 coronary artery bypass two FAMILY HISTORY Adopted: Yes Problem Relation Age of Onset other (alcholoism) Father Social History Tobacco Use Smoking status: Never Smokeless tobacco: Never Vaping Use Vaping Use: Never used Substance Use Topics Alcohol use: No Drug use: No Reviewed current medications, allergies, past medical history, surgical history, family history andsocial history today. REVIEW OF SYSTEMS All other reviewed and negative other than HPI. VITALS: BP 110/66 Pulse 71 Temp 36.6 C (97.8 F) Ht 165.1 cm (5' 5 ) Wt 108.9 kg (240 lb) SpO2 98% BMI 39.94 kg/m Last 4 Encounter Wt Readings: Date: Wt: 06/27/2022 109.6 kg (241 lb 9.6 oz) 06/18/2022 108 kg (238 lb) 06/11/2022 108.9 kg (240 lb) 05/23/2022 107.1 kg (236 lb 3.2 oz) PHYSICAL EXAMINATION: General appearance: Well appearing, alert, in no acute distress, well-hydrated, well nourished. Skin: Skin color, texture, turgor normal, no suspicious rashes or lesions Head: Normocephalic, no masses, lesions, tenderness or abnormalities Eyes: Anicteric sclera. Pupils are equally round and reactive to light. Extraocular movements are intact. Ears: External ears normal, canals clear Nose/Sinuses: Nares normal, septum midline, mucosa normal, no drainage or sinus tenderness Oropharynx: Lips, mucosa, and tongue normal, teeth and gums normal, oropharynx normal Neck: Supple, no adenopath Lungs: bilateral rhonchi. Moving air well. Audible cough. Heart: RRR without murmur, gallop, or rubs. No ectopy Abdomen: Normal abdominal exam, Abdomen soft, non-tender. Bowel sounds normal. No masses, organomegaly Extremities: No deformities, edema, skin discoloration, clubbing or cyanosis. Good capillary refill. ASSESSMENT/PLAN: 1. Bronchitis - ICD9: 490, ICD10: J40 (primary diagnosis) - Discussed risks and benefits of new medication with the patient. Advised them to call if any sideeffects or questions. Red flags for re-assessment reviewed with patient in detail. Call if symptoms worsen at all or if not better in one to two weeks Reviewed diagnosis and treatment options in detail. Questions were answered. Patient expressed understanding of treatment plan. - COVID WITH FLUA+B, ROUTINE - XR CHEST 2V FRONTAL/LAT - ALBUTEROL SULFATE HFA 90 MCG/ACTUATION AEROSOL INHALER - INHALATIONAL SPACING DEVICE - PREDNISONE 20 MG TABLET - DOXYCYCLINE MONOHYDRATE 100 MG TABLET 2. Alzheimer's dementia without behavioral disturbance (HCC) - ICD9: 331.0, 294.10, ICD10: G30.9, F02.80 3. Paroxysmal atrial fibrillation (HCC) - ICD9: 427.31, ICD10: I48.0 4. Chronic kidney disease, stage 3a (HCC) - ICD9: 585.3, ICD10: N18.31 5. Major depressive disorder, single episode, moderate (HCC) - ICD9: 296.22, ICD10: F32.1 6. Acute cough - ICD9: 786.2, ICD10: R05. - COVID WITH FLUA+B, ROUTINE - XR CHEST 2V FRONTAL/LAT - ALBUTEROL SULFATE HFA 90 MCG/ACTUATION AEROSOL INHALER - INHALATIONAL SPACING DEVICE - PREDNISONE 20 MG TABLET - DOXYCYCLINE MONOHYDRATE 100 MG TABLET Bal Denise MD documented [facility] [facility] History of Present illness Narrative* Lizette Dykes RN - 09/25/2022 4:00 PM EST [facility] TELEPHONIC OUTREACH Provider Action/FYI: Spoke with patient's daughter Antonella and validated involvement in this patient's care. EGD with biopsy done today - went well. Wound clinic next week - may be finished after 2 more visits. Appointments for Next 60 Days Date Time Provider Location Dept Phone 11/21/2022 11:00 AM BAL DENISE [facility] [phone] Contact made with patient: Yes Patient identified by name and . Discussed care with daughter It s nice talking to you again. As a reminder, this is our bi-weekly check-in where I will be asking you questions about your health. This will only take a few minutes of your time. Is this a good time? Yes Symptoms What Chronic Disease(s) does the patient have: CKD Do you check your blood pressures at home? No Do you have new or worse shortness of breath with activity? No Do you feel like you are dehydrated for any reason, including not being able to eat or drink normally, or having less urine/much darker urine than normal for you? No Do you check your daily weight at home? No Are you having any other symptoms that your PCP needs to know about? No Symptoms: Symptom Escalation TERESA Education Ordered -: Yes The patient required an escalation for symptom(s)? No Medications Do you have any questions about taking your medication or which medications you should be on? No Do you need any medication refills at this time, including any of the medications you might take only when needed? No Social We would like to make sure you have what you need so that your basic needs are met- including your personal safety, food, housing and medications? Would you like to speak with a social work steam service inspector to help give you support for any of these needs? No It can be normal to feel anxious or down during a time like this. Would you like to talk to a mental health professional about how you have been feeling? No Closing Thank you for taking the time to talk with me today. We want to work with you to ensure that we arekeeping your medical condition(s) well-controlled and to keep you healthy and out of the doctor's office or hospital. It s also not too late for me to sign you up for automated weekly questionnaires through [employer]. This is an easy way for us to stay connected each week. Are you interested? No, I understand. We can always sign you up in the future if you change your mind. Just as a reminder, will continue to call you every other week to check in on your health. Our calls should take 10-15 minutes or less. Remember, if you have concerns in between our calls, please call your PCP's office right away. Thank you. Enter next patient outreach date for two weeks on the same day of the week as today in the Track PtOutreach and End outreach. documented in this [facility] Miscellaneous Notes* Telephone Encounter - Saida Conroy RN - 09/24/2022 8:58 AM EST Last Office Visit: 07/18/2022 Future Office Visit: 11/21/2022 Requested Prescriptions Pending Prescriptions Disp Refills levothyroxine (SYNTHROID) 112 mcg tablet 30 tablet 5 Sig: Take 1 tablet by mouth daily before breakfast. For thyroid. Date of Last Labs: 05/11/2022 documented in this [facility] History of Present illness Narrative* Lizette Dykes RN - 08/28/2022 2:45 PM EST [facility] TELEPHONIC OUTREACH Provider Action/FYI: Spoke with patient's daughter Antonella and validated involvement in this patient's care. Patient has been going to Wound center weekly - leg almost healed. Patient reports weakness and depression gets worse in Winter. Patient has counselor - currently taking a break will get back in touch if needed, has declined Antonella's offer to schedule sooner appointment with Dr Denise. Contact made with patient: Yes Patient identified by name and . Discussed care with daughter It s nice talking to you again. As a reminder, this is our bi-weekly check-in where I will be asking you questions about your health. This will only take a few minutes of your time. Is this a good time? Yes Symptoms What Chronic Disease(s) does the patient have: CKD Do you check your blood pressures at home? No Do you have new or worse shortness of breath with activity? No Do you feel like you are dehydrated for any reason, including not being able to eat or drink normally, or having less urine/much darker urine than normal for you? No Do you check your daily weight at home? No Are you having any other symptoms that your PCP needs to know about? No Symptom Escalation The patient required an escalation for symptom(s)? No Medications Do you have any questions about taking your medication or which medications you should be on? No Do you need any medication refills at this time, including any of the medications you might take only when needed? No Social We would like to make sure you have what you need so that your basic needs are met- including your personal safety, food, housing and medications? Would you like to speak with a social work steam service inspector to help give you support for any of these needs? No It can be normal to feel anxious or down during a time like this. Would you like to talk to a mental health professional about how you have been feeling? No Closing Thank you for taking the time to talk with me today. We want to work with you to ensure that we arekeeping your medical condition(s) well-controlled and to keep you healthy and out of the doctor's office or hospital. It s also not too late for me to sign you up for automated weekly questionnaires through [employer]. This is an easy way for us to stay connected each week. Are you interested? No, I understand. We can always sign you up in the future if you change your mind. Just as a reminder, will continue to call you every other week to check in on your health. Our calls should take 10-15 minutes or less. Remember, if you have concerns in between our calls, please call your PCP's office right away. Thank you. Enter next patient outreach date for two weeks on the same day of the week as today in the Track PtOutreach and End outreach. documented in this [facility]12-19-2022 Miscellaneous Notes* Telephone Encounter - Saida Conroy RN - 08/27/2022 10:03 AM EST Last Office Visit: 07/18/2022 Future Office Visit: 11/21/2022 Requested Prescriptions Pending Prescriptions Disp Refills pantoprazole DR (PROTONIX) 40 mg tablet 180 tablet 1 Sig: Take 1 tablet by mouth twice daily. ferrous sulfate 325 mg (65 mg iron) tablet 60 tablet 5 Sig: Take 1 tablet by mouth twice daily with meals. Date of Last Labs: 05/11/2022 documented in this [facility]11-09-2022 Miscellaneous Notes* Telephone Encounter - Naseem Cmapbell LPN - 07/18/2022 1:01 PM EST Referral faxed to Wound Center. Naseem Campbell LPN * Telephone Encounter - Anastasiya Lua APRN.CNP - 07/18/2022 12:40 PM EST [facility] [place] documented in this [facility]11-09-2022 History of Present illness Narrative* Anastasiya Lua APRN.CNP - 07/18/2022 10:51 AM EST This is a 77 year old female who presents today with: Patient presents with: Recheck: 1 week follow up; c/o burning sensation HISTORY OF PRESENT ILLNESS: Tanya Sanchez is a 77 year old female. Patient presents with: Recheck: 1 week follow up; c/o burning sensation Pt presents today for wound check. She previously was treated for cellulitis of the RLE. We have been watching the open area on the RLE for healing. She does admit to picking. She has been getting some burning of the right foot/ankle. She does keep the area covered at times. 2cm X 1.5 cm. PAST MEDICAL HISTORY: PAST MEDICAL HISTORY Diagnosis Date Alzheimer's dementia without behavioral disturbance (HCC) Dermatitis GERD (gastroesophageal reflux disease) Hypothyroidism Pseudoseizures (HCC) Thyroid condition PAST SURGICAL HISTORY Procedure Laterality Date COLONOSCOPY FLX DX W/COLLJ SPEC WHEN PFRMD 11/16/2019 Colonoscopy EGD N/A 08/27/2016 ESOPHAGOGASTRODUODENOSCOPY TRANSORAL DIAGNOSTIC 11/16/2019 EGD PAST SURGICAL HISTORY OF 2007 coronary artery bypass two ALLERGIES Novocain [Procaine Hcl] MEDICATIONS Current Outpatient Medications Medication Sig apixaban (ELIQUIS) 5 mg tab(s) Take 1 tablet by mouth twice daily. budesonide, enteric coated (ENTOCORT EC) 3 mg 24 hr capsule Take 3 capsules by mouth once daily. sertraline (ZOLOFT) 50 mg tablet Take 1 tablet by mouth once daily. pantoprazole DR (PROTONIX) 40 mg tablet Take 1 tablet by mouth twice daily. ferrous sulfate 325 mg (65 mg iron) tablet Take 1 tablet by mouth twice daily with meals. levothyroxine (SYNTHROID) 112 mcg tablet Take 1 tablet by mouth daily before breakfast. For thyroid. famotidine (PEPCID) 20 mg tablet Take 1 tablet by mouth at bedtime as needed. omeprazole (PRILOSEC) 40 mg capsule Take 1 capsule by mouth once daily. tiZANidine (ZANAFLEX) 4 mg tablet Take 1 tablet by mouth every 8 hours as needed (muscle spasms). cholestyramine (QUESTRAN) 4 gram packet Take 1 Packet by mouth three times daily with meals. furosemide (LASIX) 40 mg tablet MELATONIN ORAL Take 10 mg by mouth. Cyanocobalamin (VITAMIN B-12) 50 mcg tab Take 1 tablet by mouth once daily. sfigdmeo-qfwh-MZ-calcium-mins (ONE-A-DAY WOMENS FORMULA) 18 mg iron-400 mcg-500 mg Ca tab Take 1 tablet by mouth once daily. atorvastatin (LIPITOR) 20 mg tablet Take 1 tablet by mouth once daily. For cholesterol. lisinopril (PRINIVIL) 10 mg tablet Take 0.5 tablets by mouth once daily. Per Dr. Funk metoprolol tartrate, short acting, (LOPRESSOR) 50 mg tablet Take 1 tablet by mouth twice daily. PerDr. Funk cholecalciferol (VITAMIN D3) 50 mcg (2,000 unit) tablet Take 2,000 Units by mouth once daily. nitroglycerin sublingual (NITROQUICK) 0.4 mg SL tablet Dissolve 1 tablet under the tongue every 5 minutes as needed. aspirin, enteric coated (ASPIRIN, ENTERIC COATED) 81 mg EC tablet Take 81 mg by mouth once daily. Current Facility-Administered Medications Medication Dose Route Frequency loperamide 2 mg cap(s) (IMODIUM) 2 mg ORAL q 6 H PRN FAMILY HISTORY Adopted: Yes Problem Relation Age of Onset other (alcholoism) Father Social History Tobacco Use Smoking status: Never Smokeless tobacco: Never Vaping Use Vaping Use: Never used Substance Use Topics Alcohol use: No Drug use: No EXAM: BP 110/82 Pulse 83 Resp 18 SpO2 95% PHYSICAL EXAM: General Appearance: Well appearing, alert, in no acute distress, well-hydrated, well nourished.. Skin: Skin color, texture, turgor normal, no suspicious rashes or lesions. Continues w/ 2cm X 1.5 cm darkly scabbed wound of the lateral RLE. No redness. No s/s of infection. Head: Normocephalic, no masses, lesions, tenderness or abnormalities. Eyes: Anicteric sclera. Extraocular movements are intact. . Neurologic: Gait normal. ASSESSMENT/PLAN: 1. Open wound of right lower extremity, subsequent encounter - ICD9: V58.89, 891.0, ICD10: S81.801D Wound is still present. Will go ahead and refer to wound/skin care. Concern this may need debrided further healing. She is aware that if she doesn't hear re: scheduling by next week to let provider know. She is also aware that if she develops any s/s of infection, she should let provider know BRODY. - CONSULT TO SKIN CARE TEAM Discussed treatment plan and patient voices understanding. Patient's questions answered appropriately. Medications and potential side effects were discussed and patient voices understanding. Return to the office as scheduled or as needed for worsening/no improvement. Anastasiya Lua APRN.HERPETOLOGIST documented in this encounter[facility] Instructions* Patient Instructions* Anastasiya Lua APRN.CNP - 07/04/2022 10:02 AM EDT Continue antibiotic cream to the area. If there is any worsening redness/pain, let us know. Otherwise, recheck in 2 weeks. documented in this encounterOhio [facility]10-26-2022 History of Present illness Narrative* Anastasiya Lua APRN.CNP - 07/04/2022 9:50 AM EDT This is a 77 year old female who presents today with: Patient presents with: Recheck: 1 week follow up- R lower leg HISTORY OF PRESENT ILLNESS: Tanya Sanchez is a 77 year old female. Patient presents with: Recheck: 1 week follow up- R lower leg Pt presents today for a recheck of the right lower leg cellulitis. She was started on clindamycin on 06/18 d/t cellulitis that started after an injury to the leg. She has been having weekly checks to monitor for improvement. She is finished with the antibiotic. The area is not painful. No fever/chills. Occasionally will apply some antibiotic ointment to the area. PAST MEDICAL HISTORY: PAST MEDICAL HISTORY Diagnosis Date Alzheimer's dementia without behavioral disturbance (HCC) Dermatitis GERD (gastroesophageal reflux disease) Hypothyroidism Pseudoseizures (HCC) Thyroid condition PAST SURGICAL HISTORY Procedure Laterality Date COLONOSCOPY FLX DX W/COLLJ SPEC WHEN PFRMD 11/16/2019 Colonoscopy EGD N/A 08/27/2016 ESOPHAGOGASTRODUODENOSCOPY TRANSORAL DIAGNOSTIC 11/16/2019 EGD PAST SURGICAL HISTORY OF 2008 coronary artery bypass two ALLERGIES Novocain [Procaine Hcl] MEDICATIONS Current Outpatient Medications Medication Sig clindamycin (CLEOCIN) 150 mg capsule Take 1 capsule by mouth four times daily. apixaban (ELIQUIS) 5 mg tab(s) Take 1 tablet by mouth twice daily. budesonide, enteric coated (ENTOCORT EC) 3 mg 24 hr capsule Take 3 capsules by mouth once daily. sertraline (ZOLOFT) 50 mg tablet Take 1 tablet by mouth once daily. pantoprazole DR (PROTONIX) 40 mg tablet Take 1 tablet by mouth twice daily. ferrous sulfate 325 mg (65 mg iron) tablet Take 1 tablet by mouth twice daily with meals. levothyroxine (SYNTHROID) 112 mcg tablet Take 1 tablet by mouth daily before breakfast. For thyroid. famotidine (PEPCID) 20 mg tablet Take 1 tablet by mouth at bedtime as needed. omeprazole (PRILOSEC) 40 mg capsule Take 1 capsule by mouth once daily. tiZANidine (ZANAFLEX) 4 mg tablet Take 1 tablet by mouth every 8 hours as needed (muscle spasms). cholestyramine (QUESTRAN) 4 gram packet Take 1 Packet by mouth three times daily with meals. furosemide (LASIX) 40 mg tablet MELATONIN ORAL Take 10 mg by mouth. Cyanocobalamin (VITAMIN B-12) 50 mcg tab Take 1 tablet by mouth once daily. xbixzytt-kjym-SM-calcium-mins (ONE-A-DAY WOMENS FORMULA) 18 mg iron-400 mcg-500 mg Ca tab Take 1 tablet by mouth once daily. atorvastatin (LIPITOR) 20 mg tablet Take 1 tablet by mouth once daily. For cholesterol. lisinopril (PRINIVIL) 10 mg tablet Take 0.5 tablets by mouth once daily. Per Dr. Funk metoprolol tartrate, short acting, (LOPRESSOR) 50 mg tablet Take 1 tablet by mouth twice daily. PerDr. Funk cholecalciferol (VITAMIN D3) 50 mcg (2,000 unit) tablet Take 2,000 Units by mouth once daily. nitroglycerin sublingual (NITROQUICK) 0.4 mg SL tablet Dissolve 1 tablet under the tongue every 5 minutes as needed. aspirin, enteric coated (ASPIRIN, ENTERIC COATED) 81 mg EC tablet Take 81 mg by mouth once daily. Current Facility-Administered Medications Medication Dose Route Frequency loperamide 2 mg cap(s) (IMODIUM) 2 mg ORAL q 6 H PRN FAMILY HISTORY Adopted: Yes Problem Relation Age of Onset other (alcholoism) Father Social History Tobacco Use Smoking status: Never Smokeless tobacco: Never Vaping Use Vaping Use: Never used Substance Use Topics Alcohol use: No Drug use: No EXAM: BP 122/82 Pulse 71 Resp 18 SpO2 94% PHYSICAL EXAM: General Appearance: Well appearing, alert, in no acute distress, well-hydrated, well nourished.. Skin: Skin color, texture, turgor normal, no suspicious rashes or lesions. 2.7 cm X 1.7 cm round area with eschar around boarder -- 1.5 cm superficial open in the center. No drainage. Head: Normocephalic, no masses, lesions, tenderness or abnormalities. Eyes: Anicteric sclera. Extraocular movements are intact. . Lungs: Lungs clear to auscultation. No wheezing, rhonchi, rales.. Heart: RRR without murmur, gallop, or rubs. No ectopy. Neurologic: Gait normal. ASSESSMENT/PLAN: 1. Open wound of right lower extremity, subsequent encounter - ICD9: V58.89, 891.0, ICD10: S81.801D Does not appear to be infected. Encouraged to continue to apply antibiotic ointment. If she gets any redness/swelling, she should notify provider. Plan to recheck in 2 weeks. Concern that area may need to be debrided if eschar continues. Discussed treatment plan and patient voices understanding. Patient's questions answered appropriately. Medications and potential side effects were discussed and patient voices understanding. Return to the office as scheduled or as needed for worsening/no improvement. Anastasiya Lua APRN.HERPETOLOGIST The patient indicates understanding of these issues and agrees with the plan. documented in this encounterOhio [facility]10-19-2022 History of Present illness Narrative* Bal Denise MD - 06/27/2022 8:17 AM EDT Chief Complaint Patient presents with: Follow Up HPI Tanya Sanchez is a 77 year old female who presents here today for a 1 week follow up. Pt here today for a 1 week recheck for right leg cellulitis. Doing much better. No redness or warmth. No fever. No red streaks. Tolerating antibiotics. Has a large area of scab/eschar where skin flap had been but is slightly smaller. Past medical history, appointments, medications, allergies reviewed. Previous Medical History PAST MEDICAL HISTORY Diagnosis Date Alzheimer's dementia without behavioral disturbance (HCC) Dermatitis GERD (gastroesophageal reflux disease) Hypothyroidism Pseudoseizures (HCC) Thyroid condition Previous Surgical History PAST SURGICAL HISTORY Procedure Laterality Date COLONOSCOPY FLX DX W/COLLJ SPEC WHEN PFRMD 11/16/2019 Colonoscopy EGD N/A 08/27/2016 ESOPHAGOGASTRODUODENOSCOPY TRANSORAL DIAGNOSTIC 11/16/2019 EGD PAST SURGICAL HISTORY OF 2007 coronary artery bypass two Family History FAMILY HISTORY Adopted: Yes Problem Relation Age of Onset other (alcholoism) Father Patient Allergies ALLERGIES Allergen Reactions Novocain [Procaine * Other: See Comments Blood pressure rises Current Medications Current Outpatient Medications on File Prior to Visit Medication Sig clindamycin (CLEOCIN) 150 mg capsule Take 1 capsule by mouth four times daily. apixaban (ELIQUIS) 5 mg tab(s) Take 1 tablet by mouth twice daily. budesonide, enteric coated (ENTOCORT EC) 3 mg 24 hr capsule Take 3 capsules by mouth once daily. sertraline (ZOLOFT) 50 mg tablet Take 1 tablet by mouth once daily. pantoprazole DR (PROTONIX) 40 mg tablet Take 1 tablet by mouth twice daily. ferrous sulfate 325 mg (65 mg iron) tablet Take 1 tablet by mouth twice daily with meals. levothyroxine (SYNTHROID) 112 mcg tablet Take 1 tablet by mouth daily before breakfast. For thyroid. famotidine (PEPCID) 20 mg tablet Take 1 tablet by mouth at bedtime as needed. (Patient not taking: No sig reported) omeprazole (PRILOSEC) 40 mg capsule Take 1 capsule by mouth once daily. tiZANidine (ZANAFLEX) 4 mg tablet Take 1 tablet by mouth every 8 hours as needed (muscle spasms). cholestyramine (QUESTRAN) 4 gram packet Take 1 Packet by mouth three times daily with meals. furosemide (LASIX) 40 mg tablet MELATONIN ORAL Take 10 mg by mouth. Cyanocobalamin (VITAMIN B-12) 50 mcg tab Take 1 tablet by mouth once daily. hmetdpdi-uedi-WM-calcium-mins (ONE-A-DAY WOMENS FORMULA) 18 mg iron-400 mcg-500 mg Ca tab Take 1 tablet by mouth once daily. atorvastatin (LIPITOR) 20 mg tablet Take 1 tablet by mouth once daily. For cholesterol. lisinopril (PRINIVIL) 10 mg tablet Take 0.5 tablets by mouth once daily. Per Dr. Funk metoprolol tartrate, short acting, (LOPRESSOR) 50 mg tablet Take 1 tablet by mouth twice daily. PerDr. Good cholecalciferol (VITAMIN D3) 50 mcg (2,000 unit) tablet Take 2,000 Units by mouth once daily. nitroglycerin sublingual (NITROQUICK) 0.4 mg SL tablet Dissolve 1 tablet under the tongue every 5 minutes as needed. aspirin, enteric coated (ASPIRIN, ENTERIC COATED) 81 mg EC tablet Take 81 mg by mouth once daily. Current Facility-Administered Medications on File Prior to Visit Medication loperamide 2 mg cap(s) (IMODIUM) Social History Social History Tobacco Use Smoking status: Never Smokeless tobacco: Never Vaping Use Vaping Use: Never used Substance Use Topics Alcohol use: No Drug use: No Review of Symptoms REVIEW OF SYSTEMS As above. EXAM: BP 122/74 (BP Site: Right Arm, BP Position: Sitting, BP Cuff Size: Regular Adult) Pulse 78 Resp16 Wt 109.6 kg (241 lb 9.6 oz) BMI 40.20 kg/m General Appearance: Well appearing, alert, in no acute distress, well-hydrated, well nourished.. Skin: redness is much better. No warmth. No read streaks. Has a 2 X 3 cm area of scab/eschar to watch. Minimal edema. . ASSESSMENT/PLAN: 1. Cellulitis of skin - ICD9: 682.9, ICD10: L03.90 (primary diagnosis) - continue antibiotics. Elevate leg prn. Red flags for re-assessment reviewed with patient in detail. 2. Open wound of right lower extremity, subsequent encounter - ICD9: V58.89, 891.0, ICD10: S81.801D - follow up in one to two weeks to re evaluate and make sure wound care is not needed. Bal Denise MD RTO above with Anastasiya or sharrin. documented in this encounterOhio [facility]10-[facility]-2022 History of Present illness Narrative* Bal Denise MD - 06/18/2022 7:04 PM EDT Patient presents with: Follow Up: UC right lower leg c/o burning and redness is bigger now HPI: Patient presents today for office visit for follow up. See urgent care from 10/3: 1. Skin tear of lower leg without complication, right, initial encounter - ICD9: 891.0, ICD10: S81.811A Wound washed with saline on gauze. Skin flap unfolded and placed in position over the wound. Dressed with bacitracin on adhesive gauze. Change dressing daily. Follow up with signs of infection such as increasing redness, pain, swelling, purulent drainage, orfever/malaise. Happened on the 2nd and was seen on the third has had increasing redness and warmth. Their is an eschar on the area. No fever or chills. Does burn. No drainage. Is not up to date with tdap. MEDICATIONS: Current Outpatient Medications Medication Sig apixaban (ELIQUIS) 5 mg tab(s) Take 1 tablet by mouth twice daily. budesonide, enteric coated (ENTOCORT EC) 3 mg 24 hr capsule Take 3 capsules by mouth once daily. sertraline (ZOLOFT) 50 mg tablet Take 1 tablet by mouth once daily. pantoprazole DR (PROTONIX) 40 mg tablet Take 1 tablet by mouth twice daily. ferrous sulfate 325 mg (65 mg iron) tablet Take 1 tablet by mouth twice daily with meals. levothyroxine (SYNTHROID) 112 mcg tablet Take 1 tablet by mouth daily before breakfast. For thyroid. famotidine (PEPCID) 20 mg tablet Take 1 tablet by mouth at bedtime as needed. (Patient not taking: No sig reported) omeprazole (PRILOSEC) 40 mg capsule Take 1 capsule by mouth once daily. tiZANidine (ZANAFLEX) 4 mg tablet Take 1 tablet by mouth every 8 hours as needed (muscle spasms). cholestyramine (QUESTRAN) 4 gram packet Take 1 Packet by mouth three times daily with meals. furosemide (LASIX) 40 mg tablet MELATONIN ORAL Take 10 mg by mouth. Cyanocobalamin (VITAMIN B-12) 50 mcg tab Take 1 tablet by mouth once daily. gndgmfab-lcrm-BB-calcium-mins (ONE-A-DAY WOMENS FORMULA) 18 mg iron-400 mcg-500 mg Ca tab Take 1 tablet by mouth once daily. atorvastatin (LIPITOR) 20 mg tablet Take 1 tablet by mouth once daily. For cholesterol. lisinopril (PRINIVIL) 10 mg tablet Take 0.5 tablets by mouth once daily. Per Dr. Funk metoprolol tartrate, short acting, (LOPRESSOR) 50 mg tablet Take 1 tablet by mouth twice daily. PerDr. Funk cholecalciferol (VITAMIN D3) 50 mcg (2,000 unit) tablet Take 2,000 Units by mouth once daily. nitroglycerin sublingual (NITROQUICK) 0.4 mg SL tablet Dissolve 1 tablet under the tongue every 5 minutes as needed. aspirin, enteric coated (ASPIRIN, ENTERIC COATED) 81 mg EC tablet Take 81 mg by mouth once daily. Current Facility-Administered Medications Medication Dose Route Frequency loperamide 2 mg cap(s) (IMODIUM) 2 mg ORAL q 6 H PRN ALLERGIES: ALLERGIES Allergen Reactions Novocain [Procaine * Other: See Comments Blood pressure rises PAST MEDICAL HISTORY Diagnosis Date Alzheimer's dementia without behavioral disturbance (HCC) Dermatitis GERD (gastroesophageal reflux disease) Hypothyroidism Pseudoseizures (HCC) Thyroid condition PAST SURGICAL HISTORY Procedure Laterality Date COLONOSCOPY FLX DX W/COLLJ SPEC WHEN PFRMD 11/16/2019 Colonoscopy EGD N/A 08/27/2016 ESOPHAGOGASTRODUODENOSCOPY TRANSORAL DIAGNOSTIC 11/16/2019 EGD PAST SURGICAL HISTORY OF 2007 coronary artery bypass two FAMILY HISTORY Adopted: Yes Problem Relation Age of Onset other (alcholoism) Father Social History Tobacco Use Smoking status: Never Smokeless tobacco: Never Vaping Use Vaping Use: Never used Substance Use Topics Alcohol use: No Drug use: No Reviewed current medications, allergies, past medical history, surgical history, family history andsocial history today. REVIEW OF SYSTEMS All other reviewed and negative other than HPI. VITALS: BP 132/82 Pulse 88 Wt 108 kg (238 lb) BMI 39.61 kg/m Last 4 Encounter Wt Readings: Date: Wt: 06/18/2022 108 kg (238 lb) 06/11/2022 108.9 kg (240 lb) 05/23/2022 107.1 kg (236 lb 3.2 oz) 03/19/2022 111.7 kg (246 lb 3.2 oz) PHYSICAL EXAMINATION: General appearance: Well appearing, alert, in no acute distress, well-hydrated, well nourished. Skin: surrounding redness and warmth. Area of eschar measuring about 1 cm. Extremities: No deformities, edema, skin discoloration, clubbing or cyanosis. Good capillary refill. ASSESSMENT/PLAN: 1. Cellulitis of skin - ICD9: 682.9, ICD10: L03.90 (primary diagnosis) - Begin treatment with Clindamycin - No lymphangetic streaking, this was defined for patient to watch for and to seek medical care immediately if appears - Area of cellulitis defined with pen, seek further attention if this area continues to enlarge - Follow up for recheck in two days - CLINDAMYCIN HCL 150 MG CAPSULE 2. Skin tear of lower leg without complication, right, subsequent encounter - ICD9: V58.89, 891.0, ICD10: S81.811D - CLINDAMYCIN HCL 150 MG CAPSULE 3. Need for vaccination - ICD9: V05.9, ICD10: Z23 - TDAP VACCINE AGE 7+ IM - Discussed risks and benefits of new medication with the patient. Advised them to call if any sideeffects or questions. Medical Decision Making: Problems: Moderate: New problem with uncertain prognosis Risk: Moderate: Drug management Medical Decision Making Level: 4 - Moderate Bal Denise MD documented in this encounterOhio [facility]10-[facility]22 History of Present illness Narrative* Vince Sheridan MD - 06/11/2022 5:44 PM EDT Patient presents with: Trauma: Cut right leg on bed railing x 1 day HPI: Skin Lesion: Location: Duration: Cut her right lower leg on her bed frame yesterday. Pruritis/Pain: Tender Change: No Drainage/blister/pustule/ulceration: Bleeding Treatment: peroxide and neosporin Concerned because she had cellulitis in this leg previously. MEDICATIONS: apixaban (ELIQUIS) 5 mg tab(s)^Take 1 tablet by mouth twice daily.^Disp: 60 tablet^Rfl: 5 budesonide, enteric coated (ENTOCORT EC) 3 mg 24 hr capsule^Take 3 capsules by mouth once daily.^Disp: 90 capsule^Rfl: 5 sertraline (ZOLOFT) 50 mg tablet^Take 1 tablet by mouth once daily.^Disp: 30 tablet^Rfl: [address] (PROTONIX) 40 mg tablet^Take 1 tablet by mouth twice daily.^Disp: 180 tablet^Rfl: 1 ferrous sulfate 325 mg (65 mg iron) tablet^Take 1 tablet by mouth twice daily with meals.^Disp: 60 tablet^Rfl: 5 levothyroxine (SYNTHROID) 112 mcg tablet^Take 1 tablet by mouth daily before breakfast. For thyroid.^Disp: 30 tablet^Rfl: 5 omeprazole (PRILOSEC) 40 mg capsule^Take 1 capsule by mouth once daily.^Disp: 90 capsule^Rfl: 1 tiZANidine (ZANAFLEX) 4 mg tablet^Take 1 tablet by mouth every 8 hours as needed (muscle spasms).^Disp: 15 tablet^Rfl: 0 furosemide (LASIX) 40 mg tablet^^Disp: ^Rfl: MELATONIN ORAL^Take 10 mg by mouth.^Disp: ^Rfl: Cyanocobalamin (VITAMIN B-12) 50 mcg tab^Take 1 tablet by mouth once daily.^Disp: ^Rfl: qpecelya-ofyj-II-calcium-mins (ONE-A-DAY WOMENS FORMULA) 18 mg iron-400 mcg-500 mg Ca tab^Take 1 tablet by mouth once daily.^Disp: 30 tablet^Rfl: 5 atorvastatin (LIPITOR) 20 mg tablet^Take 1 tablet by mouth once daily. For cholesterol.^Disp: 30 tablet^Rfl: 2 lisinopril (PRINIVIL) 10 mg tablet^Take 0.5 tablets by mouth once daily. Per Dr. Funk^Disp: ^Rfl: metoprolol tartrate, short acting, (LOPRESSOR) 50 mg tablet^Take 1 tablet by mouth twice daily. PerDr. Funk^Disp: 60 tablet^Rfl: cholecalciferol (VITAMIN D3) 50 mcg (2,000 unit) tablet^Take 2,000 Units by mouth once daily.^Disp:^Rfl: nitroglycerin sublingual (NITROQUICK) 0.4 mg SL tablet^Dissolve 1 tablet under the tongue every 5 minutes as needed.^Disp: 1 Bottle of 25^Rfl: 1 aspirin, enteric coated (ASPIRIN, ENTERIC COATED) 81 mg EC tablet^Take 81 mg by mouth once daily.^Disp: ^Rfl: famotidine (PEPCID) 20 mg tablet^Take 1 tablet by mouth at bedtime as needed.^Disp: 30 tablet^Rfl: 1 (Patient not taking: No sig reported) cholestyramine (QUESTRAN) 4 gram packet^Take 1 Packet by mouth three times daily with meals.^Disp: 90 Packet^Rfl: 1 ALLERGIES: ALLERGIES Allergen Reactions Novocain [Procaine * Other: See Comments Blood pressure rises VITALS: BP 100/68 Pulse 75 Temp 36.7 C (98.1 F) Resp 21 Wt 108.9 kg (240 lb) SpO2 98% BMI 39.94kg/m PE: Pleasant, in no acute distress. Accompanied by her daughter. Leg: right. 3cm skin tear lateral lower 1/3 of the lower leg. ASSESSMENT/PLAN: 1. Skin tear of lower leg without complication, right, initial encounter - ICD9: 891.0, ICD10: S81.811A Wound washed with saline on gauze. Skin flap unfolded and placed in position over the wound. Dressed with bacitracin on adhesive gauze. Change dressing daily. Follow up with signs of infection such as increasing redness, pain, swelling, purulent drainage, orfever/malaise. Vince Sheridan MD documented in this encounterOhio [facility]10-[facility]-2022 Miscellaneous Notes* Telephone Encounter - Maria Guadalupe Delgado RN - 06/11/2022 3:07 PM EDT Pts daughter called in and reports Pt had cut her leg on her bed. She states it wasn't deep but it was open and some of the skin was pushed up inside. Daughter states she used peroxide on it, then Neosporin, and a Band-Aid. She reports is was bleeding some and was red. Ask her if the leg was red, warm, had a red streak, or bleeding. She didn't know as she wasn't with her mother. Told her since it's red and she's on Coumadin she should be seen sooner rather than later. She is going to bring her mother into the [facility] to be seen. documented in this encounterOhio [facility]09-28-2022 Miscellaneous Notes* Telephone Encounter - Maria Guadalupe Delgado RN - 06/06/2022 11:42 AM EDT Patient has been identified by name and date of : Yes Pharmacy phones for refill(s): Requested Prescriptions Pending Prescriptions Disp Refills apixaban (ELIQUIS) 5 mg tab(s) 60 tablet 5 Sig: Take 1 tablet by mouth twice daily. budesonide, enteric coated (ENTOCORT EC) 3 mg 24 hr capsule 90 capsule 5 Sig: Take 3 capsules by mouth once daily. Date of last office visit in primary care: 05/23/22 Future visit: 11/21/22 Last 2 Encounter Wt Readings: Date: Wt: 05/23/2022 107.1 kg (236 lb 3.2 oz) 03/19/2022 111.7 kg (246 lb 3.2 oz) Previous labs/tests for medication: Coumadin: No results found for: INR Blood Counts: WBC (k/uL) Date Value 05/11/2022 6.09 10/12/2021 6.88 RBC (m/uL) Date Value 05/11/2022 4.45 10/12/2021 4.55 Hematocrit (%) Date Value 05/11/2022 37.8 10/12/2021 39.2 Hemoglobin (g/dL) Date Value 05/11/2022 11.7 10/12/2021 12.6 Platelet Count (k/uL) Date Value 05/11/2022 199 10/12/2021 212 Please advise. Thank you. Maria Guadalupe Delgado, RN documented in this encounterOhio State Harding Hospital09-19-2022 History of Present illness Narrative* Magaly Preciado MD - 05/28/2022 12:09 PM EDT Virtualist Distance Health Note (Community monitoring/CC HC/H@[facility] escalations) Adult seen for Monitoring Track: Healthy at Home [facility] Contacted by phone, Jonel, Google Duo, Zoom, Doximity, other: phone History of present illness: Spoke with daughter. Pain in back of her head, fell 2 months ago (blacked out and fell on to the floor). On blood thinners. Denies neck pain. Patient refuses to go to an appointment or hospital today. Past medical history, past surgical history, family history and social history reviewed and updatedas indicated in EMR. REVIEW OF SYSTEMS: Review of Systems VITAL SIGNS: (if available) There were no vitals taken for this visit. Physical Exam (if video visit was performed) Physical Exam awake and alert, speaking Assessment/Plan: headache Disposition: Patient instructed to go to the ED; refuses ED or appt so JONATHAN will try go get her PCP appt tomorrow. A total of 12 minutes was spent providing medical care using telemedicine. [facility]19 association Signed in as Primary Virtualist, Secondary Virtualist, or [facility] Telehealth provider: Secondary SIGNATURE: Magaly Preciado MD PATIENT NAME: Tanya Sanchez DATE: May 28, 2022 documented in this encounterOhio State Harding Hospital09-19-2022 Miscellaneous Notes* Telephone Encounter - Stacy Moreno RN - 05/28/2022 11:17 AM EDT [facility] AT HOME OUTREACH Provider Action/FYI: Patient's daughter Antonella Villa calling for patient who is having mild pain in back of her head when she touches or presses on it. Patient's daughter/patient reports pain is in the same place where patient hit her head 2 months ago after blacking out while standing, and fell onto carpeted bedroom floor.Not sure if patient may have hit her head on the door knob or dresser before landing on the floor as well. Denies other Sx. Reports skin intact but did have bump on her head after fall. Patient never followed up with ED or provider after fall, and did not mention at 05-23-22 PCP visit. Patient is currently taking blood thinners including Eliquis and ASA. Warm transfer to virtualist Dr. Preciado who wants patient to go to the ED or see PCP today, but patient refusing. Dr. Preciado then advising PCP appointment tomorrow. Warm transfer to Shobha in Navigation. PCP appointment available at 6 pm today but patient refusing. No PCP appointments available tomorrow. This RN able to convince patient to go to ED for assessment and CT scan, with patient in agreement,and patient's daughter to take patient to [facility]. Patient's daughter to also make sure that [facility] follows up with Dr. Denise and patient's records made available. Rosario, you've reached [facility] at Home, my name is Stacy Moreno RN, I'm a registered nurse, and we are on a recorded line. Patient identified by name and date of Spoke with patient and daughter Verify that the patient is a [facility] patient: Yes Are you having any symptoms today? Yes - Go to [facility] Protocol Symptoms present: Pain to back of head when touches it. Blacked out while standing in the kitchen and fell x 2 mos ago, and may have hit door knob or dresser before landing on carpet of bedroom. Based on what you've told me, I do recommend that you: Warm hand off to Virtualist Hand off to Navigator pool: Route after 5pm to H@H Navigation pool Route to [facility] Investigator Cash Shortage Do you understand my recommendations? (After patient verifies understanding) If you develop any newsymptoms, your condition worsens, then GO TO THE EMERGENCY ROOM OR CALL 911. If you have any questions, please call us back. Reason for Disposition Taking Coumadin (warfarin) or other strong blood thinner, or known bleeding disorder (e.g., thrombocytopenia) Answer Assessment - Initial Assessment Questions 1. MECHANISM: Standing in kitchen 2 months ago and blacked out and fell backward, and may have hit either her door or dresser, and then landed on carpeting of bedroom floor. 2. ONSET: Fall happened 2 months ago but did not follow up or see PCP. Did not mention to PCP at last appointment 05-23-22. 3. NEUROLOGIC SYMPTOMS: Blacked out before the fall. Currently having only pain to back of head when she touches it. 4. MENTAL STATUS: Alert and oriented 5. LOCATION: Back of the head 6. SCALP APPEARANCE: Scalp intact 7. SIZE: No bumps currently but did have one after the fall. 8. PAIN: Mild pain when touches or presses on the area. 9. TETANUS: No breaks in the skin. Not sure. 10. OTHER SYMPTOMS: Denies any other symptoms. 11. : N/A. Post-menopausal Protocols used: Head [id number] documented in this encounterOhio State Harding Hospital09-19-2022 History of Present illness Narrative* Martina Jacques RDMS - 05/28/2022 8:30 AM EDT Radiology Service Progress Note PATIENT NAME: Tanya Sanchez DATE OF SERVICE: May 28, 2022 TIME: 8:44 AM PATIENT IDENTITY VERIFICATION COMPLETED USING TWO (2) IDENTIFIERS: Name and Date of confirmedby patient verbally. FALL SCREENING: Has the patient had 2 falls in the last year or 1 fall with injury or currently using an Ambulatory Assistive Device (Walker, Cane, Wheelchair, Crutches, etc.)? No PATIENT GENDER DATA: Female. status: : No status: NO. PATIENT RELEVANT IMPLANT DATA REVIEWED: Not Applicable RADIOLOGY DEPARTMENT: Ultrasound PERIPHERAL IV DATA: Not applicable SIGNED BY: Martina Jacques RDMS RVT May 28, 2022 8:44 AM documented in this encounterOhio State Harding Hospital08-23-2022 Miscellaneous Notes* Telephone Encounter - Shanique Bell LPN - 05/01/2022 3:17 PM EDT Rachelle from [facility] calling asking for copy of discharge information from [facility] admission for 03/09/2022 to be faxed to [phone]. Printed and faxed as requested. documented in this encounterOhio State Harding Hospital08-09-2022 Miscellaneous Notes* Telephone Encounter - Saida Conroy RN - 04/17/2022 11:41 AM EDT Last Office Visit: 03/19/2022 Future Office Visit: 04/27/2022 Last Medication Refill: sertraline 12/12/2021 30 tab 3 refill Date of Last Labs: 03/19/2022 documented in this encounterOhio State Harding Hospital07-14-2022 Miscellaneous Notes* Telephone Encounter - Maria Guadalupe Delgado RN - 03/22/2022 3:42 PM EDT Pts daughter called and is notified of providers message and instructions. She voices understanding. She states she will call her mother and if she wants to make an appointment she will call back in,otherwise sh will go to the . Maria Guadalupe Delgado RN * Telephone Encounter - Bal Denise MD - 03/22/2022 1:02 PM EDT Would need seen here or urgent care. * Telephone Encounter - Maria Guadalupe Delgado RN - 03/22/2022 12:06 PM EDT Pts daughter called in and reports that Pt has been on antibiotics and now she is complaining of a scant amount of blood on her pad and vaginal itching. She thinks she may have a UTI. She is asking if provider would send something in the [facility] for Pt. Please call and advise. documented in this encounterOhio State Harding Hospital07-13-2022 Miscellaneous Notes* Telephone Encounter - Oksana Quinonez Ma - 03/21/2022 8:49 AM EDT Please resend rx this was given when in hospital Oksana Quinonez Ma * Telephone Encounter - Leonor Lira - 03/21/2022 8:35 AM EDT [facility] calling about medication pantoprazole DR (PROTONIX) 40 mg tablet. Medication has been sent to the wrong pharmacy. Medication was sent to [facility], but should have been sent to [facility]. Please make changes and submit to [employer]. documented in this encounterOhio State Harding Hospital07-12-2022 Miscellaneous Notes* Telephone Encounter - Jodi Black LPN - 03/20/2022 10:48 AM EDT Pt's daughter notified of results and dr's message. Jodi Black LPN * Telephone Encounter - Nicol Neri LPN - 03/20/2022 9:23 AM EDT Left message to return call * Telephone Encounter - Bal Denise MD - 03/20/2022 9:17 AM EDT Labs show anema is improving. Add iron. rx sent. Recheck labs in one month documented in this encounterOhio State Harding Hospital07-11-2022 History of Present illness Narrative* Bal Denise MD - 03/19/2022 9:20 AM EDT No chief complaint on file. HPI: Patient presents today for office visit for hospital follow up. Not TCM. Limited records and did not bring in med list. Was admitted to [facility] with A fib. She is accompanied by her daughter and neither is fully aware of all the details. ? Had some type of ablation. Her groin incisions are well healed. No chest pain or palpitation. No shortness of breath. No syncope. Went home and had swelling and redness to her right leg. Needed help with ambulation. Records are limited from [facility]. Denies black and bloody stools. Was very fatigued. Had egd and found ulcer that was bleeding. Did have a blood transfusion. Just finished antibiotics. Leg is back to normal. Still taking her PPI. She is not sure if she is to follow with cardiology Has no follow up with cardiology set up as well. Declines returning to [facility]. No gi upset. No changes in the bowels. No black or bloody stools. They did not put her on ir. See previous: Discharge Plan Admission Admit Date/Time: 03/10/22 10:57 Primary Reason for Your Visit: Right leg cellulitis, Anemia/GI bleed Attending Provider: Tommy Draper Primary Care Provider: Bal Denise Consulting Providers: Martina Purcell FINANCIAL REPORTING ACCOUNTANT ; Myrna Chan Discharge Orders/Prescriptions Prescriptions: New amoxicillin-pot clavulanate 875-125 mg tablet 1 tab PO BID 4 Days Qty: 8 0RF pantoprazole [Protonix] 40 mg tablet,delayed release (DR/EC) 40 mg PO BID Qty: 60 0RF Continued metoprolol tartrate 25 mg tablet 25 mg PO BID Qty: 60 11RF lisinopril 10 mg tablet 10 mg PO DAILY Qty: 90 3RF levothyroxine 112 MCG tablet 112 mcg PO DAILY budesonide 3 MG capsule,delayed,extend.release 9 mg PO DAILY sertraline 50 MG tablet 50 mg PO DAILY cholestyramine (with sugar) [Questran] 4 gram powder in packet 1 ea PO TID benzonatate [Tessalon Perles] 100 mg Capsule 100 mg PO TID PRN (Reason: Cough) nitroglycerin [Nitrostat] 0.4 mg Tablet, Sublingual 0.4 mg SUBLINGUAL Q5M PRN (Reason: chest pain) ondansetron 4 mg tablet,disintegrating 4 mg PO Q8H PRN PRN (Reason: Nausea) Qty: 10 0RF atorvastatin 20 mg tablet 20 mg PO DAILY Qty: 90 3RF furosemide 40 mg tablet See Rx Instructions .ROUTE .COMPLEX Qty: 28 11RF Dose Instruction: TAKE 1 TABLET BY MOUTH DAILY Rx Instructions: TAKE 1 TABLET BY MOUTH DAILY Held aspirin 81 MG tablet,chewable 81 mg PO DAILY Hold Instructions: Resume on 03/16/22. apixaban 5 mg tablet 5 mg PO BID Qty: 60 11RF Hold Instructions: Resume on 03/16/22. Rx Instructions: TAKE 1 TABLET BY MOUTH TWICE A DAY Discontinued omeprazole 40 MG capsule,delayed release(DR/EC) 40 mg PO DAILY famotidine [Pepcid] 20 mg Tablet 20 mg PO DAILY prednisone 20 mg Tablet 20 mg PO DAILY Referrals / Follow Up: Friend,DO Edvin [STAFF PHYSICIAN] - Within 2 Weeks Bal Denise [Primary Care Provider] - In 1 Week Juju Ch PA [PHYSICIAN COMPENSATION/BENEFITS SPECIALIST] - See Referral Note (As scheduled 04/06/2022) Disposition Disposition (needs filled in before D/C Order can be placed): Home, Self Care EGD: Impression: - Normal upper third of esophagus and middle third of esophagus. - Mild Schatzki ring. - Large hiatal hernia. - Oozing gastric ulcer with a visible vessel. Injected. Treated with a heater probe. Clips were placed. - Normal first portion of the duodenum. - No specimens collected. Recommendation: - [facility]. - Give Protonix (pantoprazole): initiate therapy with 80 mg IV bolus, then 8 mg/hr IV by continuous infusion today. MEDICATIONS: Current Outpatient Medications Medication Sig levothyroxine (SYNTHROID) 112 mcg tablet Take 1 tablet by mouth daily before breakfast. For thyroid. famotidine (PEPCID) 20 mg tablet Take 1 tablet by mouth at bedtime as needed. omeprazole (PRILOSEC) 40 mg capsule Take 1 capsule by mouth once daily. sertraline (ZOLOFT) 50 mg tablet Take 1 tablet by mouth once daily. budesonide, enteric coated (ENTOCORT EC) 3 mg 24 hr capsule Take 3 capsules by mouth once daily. tiZANidine (ZANAFLEX) 4 mg tablet Take 1 tablet by mouth every 8 hours as needed (muscle spasms). cholestyramine (QUESTRAN) 4 gram packet Take 1 Packet by mouth three times daily with meals. furosemide (LASIX) 40 mg tablet MELATONIN ORAL Take 10 mg by mouth. Cyanocobalamin (VITAMIN B-12) 50 mcg tab Take 1 tablet by mouth once daily. wfxcsryy-dfyf-OI-calcium-mins (ONE-A-DAY WOMENS FORMULA) 18 mg iron-400 mcg-500 mg Ca tab Take 1 tablet by mouth once daily. apixaban (ELIQUIS) 5 mg tab(s) Take 1 tablet by mouth twice daily. atorvastatin (LIPITOR) 20 mg tablet Take 1 tablet by mouth once daily. For cholesterol. lisinopril (PRINIVIL) 10 mg tablet Take 0.5 tablets by mouth once daily. Per Dr. Funk metoprolol tartrate, short acting, (LOPRESSOR) 50 mg tablet Take 1 tablet by mouth twice daily. PerDr. Funk cholecalciferol (VITAMIN D-3) 2,000 unit tablet Take 2,000 Units by mouth once daily. nitroglycerin sublingual (NITROQUICK) 0.4 mg SL tablet Dissolve 1 tablet under the tongue every 5 minutes as needed. aspirin, enteric coated (ASPIRIN, ENTERIC COATED) 81 mg EC tablet Take 81 mg by mouth once daily. Current Facility-Administered Medications Medication Dose Route Frequency loperamide 2 mg cap(s) (IMODIUM) 2 mg ORAL q 6 H PRN perflutren lipid microspheres 1.3 mL in NaCl (PF) 0.9% 10 mL injection (DEFINITY) INTRAVENOUS DIRECTED PRN sodium chloride 0.9 % (flush) 10 mL (BD POSIFLUSH) 10 mL INTRAVENOUS DIRECTED PRN ALLERGIES: ALLERGIES Allergen Reactions Novocain [Procaine * Other: See Comments Blood pressure rises PAST MEDICAL HISTORY Diagnosis Date Alzheimer's dementia without behavioral disturbance (HCC) Dermatitis GERD (gastroesophageal reflux disease) Hypothyroidism Pseudoseizures (HCC) Thyroid condition PAST SURGICAL HISTORY Procedure Laterality Date COLONOSCOPY FLX DX W/COLLJ SPEC WHEN PFRMD 11/16/2019 Colonoscopy EGD N/A 08/27/2016 ESOPHAGOGASTRODUODENOSCOPY TRANSORAL DIAGNOSTIC 11/16/2019 EGD PAST SURGICAL HISTORY OF 2007 coronary artery bypass two FAMILY HISTORY Adopted: Yes Problem Relation Age of Onset other (alcholoism) Father Social History Tobacco Use Smoking status: Never Smoker Smokeless tobacco: Never Used Vaping Use Vaping Use: Never used Substance Use Topics Alcohol use: No Drug use: No Reviewed current medications, allergies, past medical history, surgical history, family history andsocial history today. REVIEW OF SYSTEMS All other reviewed and negative other than HPI. VITALS: BP 122/72 Pulse 61 Temp 36.7 C (98.1 F) (Left Tympanic) Resp 18 Wt 111.7 kg (246 lb 3.2 oz) SpO2 97% BMI 40.97 kg/m Last 4 Encounter Wt Readings: Date: Wt: 12/08/2021 112.9 kg (249 lb) 10/26/2021 116.1 kg (256 lb) 10/12/2021 116.1 kg (256 lb) 09/18/2021 117 kg (258 lb) PHYSICAL EXAMINATION: General appearance: Well appearing, alert, in no acute distress, well-hydrated, well nourished. Skin: Skin color, texture, turgor normal, no suspicious rashes or lesions Head: Normocephalic, no masses, lesions, tenderness or abnormalities Lungs: Lungs clear to auscultation. No wheezing, rhonchi, rales Heart: RRR without murmur, gallop, or rubs. No ectopy Abdomen: Normal abdominal exam, Abdomen soft, non-tender. Bowel sounds normal. No masses, organomegaly Extremities: trace edema. Skin still slightly pink on right leg but markedly better per patient anddaugher. Musculoskeletal: No joint swelling, deformity, or tenderness Peripheral pulses: Normal ASSESSMENT/PLAN: 1. Acute gastric ulcer without hemorrhage or perforation - ICD9: 531.30, ICD10: K25.3 (primary diagnosis) - get old records from both hospitalizations to review. - Red flags for re-assessment reviewed with patient in detail. - check labs and arrange follow up with gi. - CONSULT TO GASTROENTEROLOGY 2. Cellulitis of right lower extremity - ICD9: 682.6, ICD10: L03.115 - Add one more week of antibiotics. Call if symptoms worsen at all or if not better in one to two weeks - AMOXICILLIN 875 MG-POTASSIUM CLAVULANATE 125 MG TABLET 3. Anemia, unspecified type - ICD9: 285.9, ICD10: D64.9 - follow labs. ? Need iron. - CBC + DIFF 4. Paroxysmal atrial fibrillation (HCC) - ICD9: 427.31, ICD10: I48.0 - see cardiology . Check recors. - CONSULT TO CARDIOLOGY 5. Stage 3 chronic kidney disease, unspecified whether stage 3a or 3b CKD (HCC) - ICD9: 585.3, ICD10: N18.30 - BASIC METABOLIC PNL Bal Denise RTO in 4 weeks and prn. documented in this encounterOhio State Harding Hospital07-08-2022 History of Present illness Narrative* Dominga Dunn RN - 03/16/2022 4:12 PM EDT [facility] Enrollment Provider Action/I: - ckd, htn Patient referred by: [facility] John Contact made with patient: No - Unable to leave message: (Keep encounter open and attempt 2nd outreach in two business days from today). END OUTREACH * Dominga Dunn RN - 03/14/2022 5:50 PM EDT [facility] Enrollment Provider Action/FYI: - ckd, htn Patient referred by: [facility] John Contact made with patient: No - Left Message: Hi my name is Dominga Dunn RN and I am calling from the [facility] on behalf of your PCP, Bal Denise MD. We are excited to share with you a new program to help you manage your health. Please call me back at [phone] between the hours of 8am-5pm Saturday- Saturday. You will receive another phone call from me within the next two business days.I hope you can take the time to speak with me. (Keep encounter open and attempt 2nd outreach in two business days from today) END OUTREACH documented in this encounterOhio State Harding Hospital07-08-2022 Evaluation note* Diagnosis Stage 3 chronic kidney disease, unspecified whether stage 3a or 3b CKD (HCC)- Primary documented in this encounter [facility]07-01-2022 Miscellaneous Notes* Telephone Encounter - Bal Denise MD - 03/09/2022 8:40 AM EDT agree * Telephone Encounter - Maria Guadalupe Delgado RN - 03/09/2022 8:27 AM EDT Protocol recommends got to the ER now. Pts daughter reports it take three people to help getting her up to move her to the bathroom. The daughter is going to call the EMS to come bring her mother to the ER. Care plan reviewed with patient. Patient and daughter voices understanding. Advised patient that if symptoms get worse to call 911 immediately. Reason for Disposition Unable to walk Answer Assessment - Initial Assessment Questions 1. ONSET: Right after she had gotten up from Ablation going up through groin for Afib. 2. LOCATION: The whole R leg, groin, and R hip. 3. PAIN: (Scale 1-10; or mild, moderate, severe) - MILD (1-3): doesn't interfere with normal activities - MODERATE (4-7): interferes with normal activities (e.g., work or school) or awakens from sleep, limping - SEVERE (8-10): excruciating pain, unable to do any normal activities, unable to walk The Pt rates the pain a 10/10 when she tries to life the leg up. Pt cannot walk on R leg. Pain is constant worse when moving. Pt reports her brain wasn't working and could not describe the pain. 4. WORK OR EXERCISE: Pt had an ablation the the groin. 5. CAUSE: Ablation. Pt had the procedure on Saturday and came home yesterday. 6. OTHER SYMPTOMS: Pt denies chest pain, back pain, breathing difficulty, fever, numbness, and tingling. Daughter reports swelling and warmth to R calf. 7. : Postmenopausal. Protocols used: LEG [id number]-BY documented in this encounterOhio State Harding Hospital06-30-2022 Hospital Discharge instructions Patient Education 03/08/2022 10:05:57 3-- EP Study/Ablation (06/2018) (CUSTOM) ELECTROPHYSIOLOGY STUDY/ABLATION Discharge Instructions DIET INSTRUCTIONS Resume diet as prior to procedure ACTIVITIES Do not drive FOR 24 HOURS No heavy lifting GREATER THAN 25 POUNDS or pushing or straining FOR 3 days BATHING/SHOWERING May tub bathe in 4 days Do not sit in hot tub, whirlpool, or swim for 4 days May shower today WOUND CARE You may go home with a Band-Aid over your procedure site. Keep this Band-Aid on for the next 24 hours and then remove it leaving the site open to air. Some degree of bruising and tenderness is normal around the procedure site. It will take a while for any bruising to completely resolve. Keep your site clean and dry. You need to report the following to your nuclear medicine specialist: Any draining or oozing from the site Any swelling at the site Any increased pain or tenderness at the site Any numbness in your leg where the procedure was done Any sign of infection WATCH FOR SIGNS OF INFECTION: Elevated temperature above 100.5 Redness or swelling Increased pain Foul odor or drainage. If you have any questions, please call your doctor at the number listed on your follow up instructions. Follow all instructions given to you by your physician. Document Released: 08/26/2006 Document Revised: 08/12/2013 Document Reviewed: 08/27/2014 ExitCare Patient Information 2015 [employer]. This information is not intended to replace advicegiven to you by your health care provider. Make sure you discuss any questions you have with your health care provider. Follow Up Care 02/23/2022 09:09:57 With:PREET MARTINEZ MD Address: [address], [place], [facility] [address] [place] [address]- [phone] When:06/14/2022 11:30:00 [facility] 06-30-2022 Summary of episode note Discharge Instructions Thank you for allowing [facility] to assist you with your healthcare needs. The following is importantdischarge information regarding your hospital visit. Your Care Team BAL DENISE MD What to do next Scheduled Follow-Up Appointments Appointment Type When Where Contact InformationCV OV 06/14/2022 11:30 AM EDT [facility] Follow Up Appointments Follow Up with PREET MARTINEZ MD When 06/14/2022 11:30 AM EDT Where: [address] [place], [facility] [address] [place] [address]- [phone] The Following Activity and Diet Have Been Ordered for You Discharge Activity - Ordered -- May Shower, No heavy lifting for 3 days (nothing > 25 lbs), 03/08/22 8:56:00 EDT No qualifying data available. Allergies Novocaine Medications Please ask your primary doctor or pharmacist before taking any other medication not listed, including over the counter drugs, herbal medications, vitamins and or supplements as they may interact withyour home medications. What How Much When Instructions Last Dose Unchanged apixaban (Eliquis 5 mg oral tablet) 1 tab(s) by mouth Two (2) times a day Unchanged aspirin (Aspir-Low 81 mg oral delayed release tablet) 1 tab(s) by mouth Once a day Unchanged atorvastatin (atorvastatin 20 mg oral tablet) 1 tab(s) by mouth Once a day Unchanged budesonide (budesonide 3 mg oral delayed release capsule) 1 cap by mouth Once a day (in the morning) Unchanged furosemide (furosemide 40 mg oral tablet) 1 tab(s) by mouth Once a day Unchanged levothyroxine (levothyroxine 112 mcg (0.112 mg) oral tablet) 1 tab(s) by mouth Once a day Unchanged lisinopril (lisinopril 10 mg oral tablet) 1 tab(s) by mouth Once a day Unchanged metoprolol (metoprolol tartrate 25 mg oral tablet) 1 tab(s) by mouth Two (2) times a day Unchanged nitroGLYcerin (nitroglycerin 0.4 mg sublingual tablet) 1 tab(s) under the tongue Every 5 minutes as needed for for chest pain Unchanged omeprazole (NF) (PriLOSEC 40 mg oral delayed release capsule (NF)) 1 cap by mouth Once a day 0400 Unchanged sertraline (sertraline 50 mg oral tablet) 1 tab(s) by mouth Once a day Please take this list to your next doctor s visit. Bring all medications you take, including over the counter medications, herbals and other supplements with you to your doctor s visit. Patients and families are reminded to discard old lists and to update any records with all medication providers or retail pharmacies. Education Materials ELECTROPHYSIOLOGY STUDY/ABLATION Discharge Instructions DIET INSTRUCTIONS Resume diet as prior to procedure ACTIVITIES Do not drive FOR 24 HOURS No heavy lifting GREATER THAN 25 POUNDS or pushing or straining FOR 3 days BATHING/SHOWERING May tub bathe in 4 days Do not sit in hot tub, whirlpool, or swim for 4 days May shower today WOUND CARE You may go home with a Band-Aid over your procedure site. Keep this Band-Aid on for the next 24 hours and then remove it leaving the site open to air. Some degree of bruising and tenderness is normal around the procedure site. It will take a while for any bruising to completely resolve. Keep your site clean and dry. You need to report the following to your nuclear medicine specialist: Any draining or oozing from the site Any swelling at the site Any increased pain or tenderness at the site Any numbness in your leg where the procedure was done Any sign of infection WATCH FOR SIGNS OF INFECTION: Elevated temperature above 100.5 Redness or swelling Increased pain Foul odor or drainage. If you have any questions, please call your doctor at the number listed on your follow up instructions. Follow all instructions given to you by your physician. Document Released: 08/26/2006 Document Revised: 08/12/2013 Document Reviewed: 08/27/2014 ExitCare Patient Information 2015 [employer]. This information is not intended to replace advicegiven to you by your health care provider. Make sure you discuss any questions you have with your health care provider. Additional Information VACCINATE! IT SAVES LIVES! Members of the community who have not yet received the COVID-19 vaccine and would like to receive it can visit one of [facility] vaccine clinics. There are many vaccine clinic locations within the [facility]. For locations and available times, please visit [email or web address] It is important to note that some COVID mobile vaccine clinics are held outdoors and may be canceled in rainy or stormy conditions. To learn more about pediatric vaccinations (ages 5-11), we invite you to visit the [facility] webpage. [email or web address] learn more about the COVID-19 vaccine, we invite you to visit the [facility] website for a list of frequently asked questions. [email or web address] [facility] Patient Portal Access Instructions: Stay connected with your healthcare team and access your personal medical information anytime with the [facility] Patient Portal.If you would like a full copy of your medical records, please contact the [facility] Medical Records Department, Saturday through Saturday between 8a.m. and 4:30p.m. Please follow the directions below to access the portal: 1.Access the email account you provided upon registration to the [facility].2.Look for an invitation email from [facility].3.Open the email and access the invitation link: Accept Invitation to [facility]4.Fill in the required blas to create your account. Sign into www.Undo [employer] with your username and password that you created in the above steps to stay up to date. You can then view a summary of results, a summary of your visits, and the ability to download your summaries to your computer or send the information securely to a physician. Remember that your healthcare information is confidential, so carefully consider who you will allow to register on the [facility] Patient Portal for access to your information. You can also access the [facility] Patient Portal on the [employer]. Simply click on Health Records under [employer] and then click on the Spunk[employer] logo. HOW TO SAFELY DISPOSE OF PRESCRIPTION MEDICATIONS Please use one of the following methods to safely dispose of your unused medications. 1.Use a drug disposal kit: the drug disposal pouch allows you to safely discard your old and unuseddrugs. Ask your nurse to give you one when you are discharged.2.Visit a local take-back location: Many local pharmacies and police departments have programs that collect old and unwanted prescriptiondrugs. Call your local pharmacy or go to [email or web address] [email or web address]/[email or web address] to find one close to you.3.Make use of household items: Use cat litter or old coffee grounds to dispose medications if other options arenot available. Mix your drugs with these household products, seal them in an airtight container andthrow it into the garbage. Call [facility]: [phone] to be sure your drugs can be disposed of in this way. Some medicines may require a different approach.4.Never flush your medications down the toilet. IF YOU HAVE BEEN PRESCRIBED AN OPIOID FOR PAIN If you have been prescribed an opioid (such as hydrocodone, oxycodone or morphine), it is critical to understand the possible side effects and risks of opioid pain medications. Even when taken as directed, opioids can have several side effects including: Tolerance, meaning you might need to take more of a medication for the same pain relief. Nausea, vomiting and/or constipation. Sleepiness, dizziness, dry mouth, confusion, depression or itching. Physical dependence, meaning you have withdrawal symptoms when a medication is stopped, can develop within a few days. KNOW YOUR RESPONSIBILITIES It is important to know exactly how much and how often to take the opioid pain medications you are prescribed. Never take opioids in higher amounts or more often than prescribed. Do not combine opioids with alcohol or other drugs that cause drowsiness, such as benzodiazepines, also known as benzos, including diazepam and alprazolam, muscle relaxants or sleep aids. Never sell or share prescription opioids. This is illegal. Store opioids in a secure place and out of reach of others (including children, family, friends and visitors). The last page of this document has been signed and retained as a CHART COPY. Signatures Patient Education Materials 3-- EP Study/Ablation (06/2018) (CUSTOM) Medication Leaflets My discharge plan and instructions have been reviewed and explained to me and I,TANYA SANCHEZ understand my current condition and have read and understand these discharge instructions. I have received a written copy of the plan/instructions. If I have questions, I am aware that I should contact my d octor. Patient/Department Head Signature: Date/Time: Relationship to Patient: Witness Name/Signature: Date/Time: [id number] Anesthesiology Progress note Pt taken to EP2. After moved to bed, while attaching EKG, BP and pulse oximetry the pt became unresponsive and experienced tonic clonic movement of the head and left arm lasting approximately 3-5 min. Pt was postictal and then became responsive. Dr Martinez notified and stated he wished to proceed with GA Digitally Signed by BECKI HANSEN DO on 03/07/2022 08:54 AM [facility] [id number] Anesthesiology Consult note Patient: TANYA SANCHEZ Age: 76 years Sex: Female : 1945 Associated Diagnoses: None Author: BECKI HANSEN DO Preoperative Information Greater than 6 hours Anesthesia history Patient's history: negative. Family's history: negative. Review of Systems Ear/Nose/Mouth/Throat: Negative except as documented in history of present illness. Respiratory: Negative except as documented in history of present illness. Cardiovascular: Negative except as documented in history of present illness. Gastrointestinal: Negative except as documented in history of present illness. Genitourinary: Negative except as documented in history of present illness. Endocrine: Negative except as documented in history of present illness. Musculoskeletal: Negative except as documented in history of present illness. Integumentary: Negative except as documented in history of present illness. Neurologic: Negative except as documented in history of present illness. Health Status Allergies: Allergic Reactions (Selected) Severity Not Documented Novocaine- No reactions were documented., Allergies (1) ActiveReaction NovocaineNone Documented Current medications: (Selected) Inpatient Medications Ordered NS 1,000 mL: Start: 03/07/22 5:00:00 EDT, 19 hour(s), Stop date 03/07/22 23:59:00 EDT, Rate: 20 mL/hr, 03/07/22 5:00:00 EDT lidocaine 1% preservative-free injectable solution: Start: 03/07/22 5:00:00 EDT, Dose = 2.5 mg, = 0.25 mL, Intradermal, prep pharm, 13 hour(s), Stop: 03/07/22 17:59:00 EDT, 0, 03/07/22 5:00:00 EDT Prescriptions Prescribed PriLOSEC 40 mg oral delayed release capsule (NF): Dose : 40 mg = 1 cap(s), Oral, qDay, # 30 cap(s),0 Refill(s) Documented Medications Documented Aspir-Low 81 mg oral delayed release tablet: Dose : 81 mg = 1 tab(s), Oral, qDay, # 90 tab(s), 0 Refill(s) Eliquis 5 mg oral tablet: Dose : 5 mg = 1 tab(s), Oral, BID, 0 Refill(s), 103.8 atorvastatin 20 mg oral tablet: Dose : 20 mg = 1 tab(s), Oral, qDay, # 30 tab(s), 0 Refill(s) budesonide 3 mg oral delayed release capsule: Dose : 3 mg = 1 cap(s), Oral, qAM, 0 Refill(s) furosemide 40 mg oral tablet: Dose : 40 mg = 1 tab(s), Oral, qDay, # 30 tab(s), 0 Refill(s) levothyroxine 112 mcg (0.112 mg) oral tablet: Dose : 112 mcg = 1 tab(s), Oral, qDay, # 30 tab(s), 0Refill(s) lisinopril 10 mg oral tablet: Dose : 10 mg = 1 tab(s), Oral, qDay, # 30 tab(s), 0 Refill(s) metoprolol tartrate 25 mg oral tablet: Dose : 25 mg = 1 tab(s), Oral, BID, 0 Refill(s) nitroglycerin 0.4 mg sublingual tablet: Dose : 0.4 mg = 1 tab(s), Sublingual, q5min, PRN for chest pain, # 25 tab(s), 0 Refill(s) sertraline 50 mg oral tablet: Dose : 50 mg = 1 tab(s), Oral, qDay, # 30 tab(s), 0 Refill(s), Medications (2) Active Scheduled: (1) lidocaine 1% (MPF) 2 mL vial pf 2.5 mg 0.25 mL, Intradermal, prep pharm Continuous: (1) NS (0.9% nacl) 1,000 mL 1,000 mL, Intravenous, 20 mL/hr PRN: (0) Problem list: Medical Anxiety / SNOMED CT 67143821 / Confirmed Dementia / SNOMED CT 81493202 / Confirmed GERD - Gastro-esophageal reflux disease / SNOMED CT 7145257229 / Confirmed Hypertension / SNOMED CT 30972798 / Confirmed Hypothyroid / SNOMED CT 27476910 / Confirmed Paroxysmal atrial fibrillation / SNOMED CT 232208235 / Confirmed Pseudoseizures / SNOMED CT 857587193 / Confirmed Seizures / SNOMED CT 139713890 / Confirmed Syncope / SNOMED CT 953359502 / Confirmed, Active Problems (9) Anxiety Dementia GERD - Gastro-esophageal reflux disease Hypertension Hypothyroid Paroxysmal atrial fibrillation Pseudoseizures Seizures Syncope Histories Past Medical History: Active Seizures ([id number]) Comments: 06/10/2016 EDT 14:32 EDT - Ismael RN Emmy Yanni pseudo seizures Hypothyroid ([id number]) Family History: Patient was adopted. Procedure history: Echocardiogram ([id number]) in the month of 02/2022 at 76 Years. Comments: 02/20/2022 14:04 EDT - CardShari Mikey TAVAREZ E F 60 % Bypass ([id number]). Cataract ([id number]). Social History Social & Psychosocial Habits Alcohol 02/21/2022 Use: Never Employment/School 02/22/2022 Status: Retired Substance Abuse 03/07/2022 Use: Never Tobacco 02/21/2022 Tobacco Use: Never (less than 100 in l Home/Environment 02/22/2022 Marital Status of Patient if Patient Independent Adult: Unmarried Nutrition/Health 02/21/2022 Caffeine intake amount: 6 cups qd . Physical Examination General: Alert and oriented. Airway: Normal temporomandibular joint mobility, Normal mouth, Normal throat, Normal neck range of motion, Trachea midline. Mallampati classification: II (soft palate, fauces, uvula visible). Head: Normocephalic. Dentition Evaluation: Intact, Own teeth, Denies loose/chipped teeth. Neck: Supple. Respiratory: Lungs are clear to auscultation, Respirations are non-labored. Cardiovascular: Normal rate, Regular rhythm, No murmur. Heart Sounds: Normal. Gastrointestinal: Soft. Musculoskeletal Normal range of motion. Integumentary: Intact, Warm, Dry. Neurologic: Alert, Oriented. Review / Management Results review: Lab results 03/07/2022 6:36 EDT Sodium Chloride 0.9% Begin Bag 1,000 mL mL 03/07/2022 6:25 EDT Allergies Yes Consent Form Signed Yes Patient Dressed In Hospital gown History & Physical Update On Chart Yes History & Physical On Chart Yes Obstructive Sleep Apnea Assess Completed Yes NPO Status Maintained Allergy Band on and Verified Yes Patient ID Band on and Verified Yes Last Fluid Intake 03/06/2022 20:00 Last Food Intake 03/06/2022 20:00 Last Void 03/07/2022 6:25 03/07/2022 6:17 EDT Designated Person #1 We May Share JACKSON Ramandeep Jade [phone] Designated Person #1 Relationship Daughter Privacy Restrictions Requested None Height 162.6 cm Admission Weight 112.7 kg Weight Method Actual [place] Body Weight 54.74 kg Body Mass Index 42.63 kg/m2 Body Mass Index 42.63 kg/m2 Temperature Temporal Artery 36.1 DegC Apical Heart Rate 65 bpm Respiratory Rate 18 br/min Systolic BP Left Arm 134 mmHg Diastolic BP Left Arm 88 mmHg Primary Pain Intensity 0 Primary Pain Nonverbal Response Nods No Pain Scale Type 0-10 Pain scale Nail Bed Color Turney Capillary Refill < 2 seconds Jugular Venous Distention Absent at 45 degrees Dorsalis Pedis Pulse, Left 1+ Thready Dorsalis Pedis Pulse, Right 1+ Thready Posttibial Pulse, Left 1+ Thready Posttibial Pulse, Right 1+ Thready Bilateral Ankle Edema 2+ mild/4mm Right Pedal Edema 2+ mild/4mm Respirations Unlabored Respiratory Pattern Regular Breath Sounds Auscultated Anterior and posterior All Lobes Breath Sounds Clear, Diminished Cough and Deep Breathe Done Cough None Oxygen Therapy Room air Oxygen Saturation 98 % Tracheal Position Midline Abdomen Description Non-distended, Soft Abdomen Palpation Non-Tender Bowel Sounds All Quadrants Present Urinary Elimination Voiding, no difficulties Status N/A Facial Movement Symmetric resting/crying All Extremity Description Turney Skin Temperature Warm Temperature All Extremities Warm Skin Description Turney, Dry Skin Integrity Intact Skin Turgor Non-Elastic Mucous Membrane Color Turney Mucous Membrane Description Moist Neurological Language Able to speak clearly Neurological Symptoms Patient denies Gait Unsteady Extremity Movement Equal Swallowing Difficulty None Characteristics of Communication Appropriate Characteristics of Speech Clear Facial Symmetry Symmetric Level of Consciousness Alert Aspiration Risk None YASMIN Yes Left Pupil Description Regular, Round Right Pupil Description Regular, Round Left Pupil Reaction Brisk Right Pupil Reaction Brisk Pupil Size, Left 3 mm Pupil Size, Right 3 mm Strength All Extremities Moderate CN V Facial Sensation Corneal reflex present CN VII Facial Expression and Symmetry Facial movement symmetrical CN IX, X Swallowing, Gag Reflex Swallowing present Affect/Behavior Appropriate, Calm, Cooperative Orientation Oriented x 4, Forgetful, Other: very forgetful with short term (Modified) Sensory Deficits None Sleep Apnea Snore No Sleep Apnea Tired No Sleep Apnea Obstruction No Sleep Apnea Pressure Yes Sleep Apnea BMI No Sleep Apnea Age Yes Sleep Apnea Neck No Sleep Apnea Gender No Sleep Apnea Score 2 High Risk for Sleep Apnea No Diagnosed With Sleep Apnea No Advanced Directives No - refuses information Infectious Disease Symptoms Patient states no symptoms Infectious Disease Recent Exposure No Alcohol and Drug Use No Employee of Institutional Living No Health Care Employee No History of Exposure to TB No History of Positive Chest X-Ray for TB No History of Positive TB Skin Test No Homeless No Known Immunosuppression No Recent Immigrant No Resident of Institutional Living No Bloody Sputum No Fatigue No Fever No Loss of Appetite No Night Sweats No Persistent Cough > 3 Weeks No Weight Loss No Safety Brochure Information Reviewed Yes Charline Isabel Video Viewed Patient refused Individuals Taught Patient, Daughter Learning Readiness Willing to learn Barriers to Learning Memory problems Teaching Method Explanation, Printed materials, Teach-back Teaching Evaluation Verbalizes/Nonverbally indicates understanding Preferred Written Language French Preferred Spoken Language French Pre Procedure/Surgery Education Date/Time of procedure/surgery, NPO Incision/Wound Care Education Hand hygiene Post op Activity Education Bedrest Procedure/Surgery Testing Education Lab tests Information Given by Patient Patient's Current Physicians Dr Fajardo PCP ? Discharge To, Anticipated Home independently Standard Safety ID band on, Allergy Band on, Call device within reach, Bed in low position, Wheels locked, Upper/Half-Length side-rails up, Phone within reach, personal items within reach, Visitor atbedside, Safety level maintained, Hazards removed from floor, Non-Slip footwear High Risk Safety Identified as high risk, Fall ID band on, Room located near nursing station, Bed alert on, High risk door magnet present Prev Test Positive/Diagnosis w/COVID-19 Yes Previous COVID-19 Positive Date 2020 Current Quarantine/Isolated any Illness No Any Contact with Sick Animals/Birds No Traveled Anywhere in Last 30 Days No Lost Weight Unintentionally Recently Yes, 2-13 lb weight loss Eat Poorly Due to Decreased Appetite Yes Total MST Score 2 N/A Personal Devices, Patient Valuables None Anesthesia/Transfusions Prior anesthesia Admission Note-Nursing Same Day Patient History 03/07/2022 5:00 EDT Electrocardiogram - EKG - CV Ordered (In Progress) . Assessment and Plan [place] [employer] Anesthesiologists (ASA) physical status classification: Class IV. Anesthetic Preoperative Plan Premedication: intravenous. Anesthetic technique: General. Induction: intravenously. Maintenance airway: Oral endotracheal tube. Special techniques: Warming device. Special Monitoring: Arterial line. Postoperative pain management: Per surgeon. Risks discussed: nausea, vomiting, headache, sore throat, dental injury, hypotension, allergic reaction, serious complications. Informed consent: signed by patient. Beta Dory: Beta Dory Taken Within 24 Hrs: Yes. Digitally Signed by BECKI HANSEN DO on 03/07/2022 06:43 AM Digitally Signed by BECKI HANSEN DO on 03/07/2022 06:44 AM [facility] [id number] Nurse Progress note Patient did not bring in home medication list. Patient is a poor historian with short term memory. Called patients daughter at home and reviewed home medications and last dose date and time with daughter who had medication list and bottles in front of her. Digitally Signed by RADHA Feldman on 03/07/2022 06:43 AM [facility] [id number] Miscellaneous Notes* Telephone Encounter - Kathy Pennington LPN - 02/16/2022 10:39 AM EDT Patient appointment was rescheduled. Kathy Pennington LPN * Telephone Encounter - Kathy Pennington LPN - 01/04/2022 5:19 PM EDT Unable to reach patient's daughter. Kathy Pennington LPN * Telephone Encounter - Kathy Pennington LPN - 01/04/2022 5:18 PM EDT ----- Message from Bal Morales Jr., MD sent at 01/03/2022 5:28 PM EDT ----- Please try to get pt sooner appt. [facility] as noted. Request made for [facility] appt. Bal Morales MD documented in [facility] Miscellaneous Notes* Telephone Encounter - [place] [facility] [place]15/[place] 2:30 PM EDT Patient has been identified by name and date of : Yes Pending Prescriptions Disp Refills LEVOTHYROXINE 112 MCG TABLET 30 tablet 5 Sig: Take 1 tablet by mouth daily before breakfast. For thyroid. LOTUS: No FAMOTIDINE 20 MG TABLET 30 tablet 1 Sig: Take 1 tablet by mouth at bedtime as needed. LOTUS: No OMEPRAZOLE 40 MG CAPSULE,DELAYED RELEASE 90 capsule 1 Sig: Take 1 capsule by mouth once daily. LOTUS: No GAEL-10/26/21 Labs-10/12/21 NOV-03/22/22 RX INSTRUCTIONS: Pharmacy initiated this request. No need to notify patient. Angelique Murphy [facility] documented in this encounterOhio [facility]05-04-2022 History of Present illness Narrative* Melvina Johnson APRN.HERPETOLOGIST - 01/10/2022 5:15 PM EDT Images from the original note were not included. [facility] [place] Follow-up Virtual Visit Follow-up note January 10, 2022 HPI: Ms. Sanchez presents today for a follow-up visit. Per her previous visit with Dr. Morales on 12/08/21: ASSESSMENT/PLAN: 1. Vertigo - ICD9: 780.4, ICD10: R42 (primary diagnosis) 2. Lightheadedness - ICD9: 780.4, ICD10: R42 3. History of coronary artery disease - ICD9: V12.59, ICD10: Z86.79 Difficult to determine etiology of events that have been referred to as dizziness and lightheadedness, due to patient being a poor historian (as well as family). Today describes spinning sensations consistent with vertigo but on review of medical records, events have been discussed as lightheadedness with blacking out . Non-focal neuro exam except sensory deficits below ankles as above that may be due to significant pedal edema. Episodes described today are not associated with any other focal neuro deficit. No nystagmus on exam to suggest peripheral or vestibular cause. Ddx at this time, from neuro standpoint, given history would include possible VBI given or stroke given CV risk factors including Afib, HTN, HLD. However, if this is not vertigo but rather lightheadedness or presyncope/syncope, need to consider cardiac etiology given known history of afib and CAD. Discussed ddx with pt and her daughter. Plan as follows: -MRI brain and MRA head and neck to evaluate for stroke resulting in symptoms of vertigo as well asVBI. -14 day Event monitor to evaluate for cardiac arrhythmia. -Recommend cardiology evaluation given years since last follow up. Referral placed as pt wanting totransition to new analyst programmer. -Orthostatics negative in office today, but will repeat on follow up with consideration for tilt table if positive. 4. Pseudoseizure - ICD9: 300.11, ICD10: F44.5 Limited history regarding events. EEG in 2019 normal. I have no prior records. 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 Will attempt to get outside records. If not available and episodes continue to occur, then consider referral to epilepsy for EMU admit. 5. Memory problem - ICD9: 780.93, ICD10: R41.3 Patient will not cooperate with MOCA. Poor historian. Vit B12 and TSH in recent years unremarkable.Will attempt to get more details next visit. Consider referral to neuropscy or center for brain health for cognitive assessment. Still having some dizziness but she states that she is in so much pain that she cannot even stand up. Having pain in her abdomen. Her daughter reports she has an appointment in February or March for this issue. States she walked down to pay her rent and could barely make it home because she was out of breath. States the pain was very severe after this. Pt states one time she stood up and felt off balance and fell against the window. Having difficultyremembering things. Had an event possibly one week ago where she had an episode. When asked aboutthe episode and what happened she states I have no clue. She was seen by [facility] last Saturday. Will be changing one pill. Pt's daughter states she was told the heart rate may change and may help with dizziness. Her daughter states they wanted her to take half the dosage, however, the patient states she cannot cut them in half and she is waiting on new medications. Her daughter states that cardiology did address and review the results of the heart monitor. Her daughter states that cardiology suggested the patient have a study completed for sleep apnea given drops in heart rate. Daughter states she stops breathing in the middle night. She is unsure if she snores. Does not wake in the middle of the night due to gasping for air. Chronically feels tired during the day. Her daughter states she will not wear a CPAP and the patient herself agrees. She states she does not want to go to the hospital for a sleep study but may agree to staying overnight at a hotel. Has only been drinking Ensure and not eating because she is having difficulty swallowing, has abdominal pain, and the Ensure makes her sick. Pt's daughter asking about nutrition. Still having episodes where her body freezes up and she cannot talk. Last episode possible a coupleof weeks ago but patient's daughter unsure. Pt does not want to go to the hospital. Pseudoseizures dx 20 years ago. No changes in memory since previous appointment. Has difficulty remembering events and what has happened recently. The patient herself states she does not want to do memory testing. Reviewed test results. PAST MEDICAL HISTORY Diagnosis Date Alzheimer's dementia without behavioral disturbance (HCC) Dermatitis GERD (gastroesophageal reflux disease) Hypothyroidism Pseudoseizures (HCC) Thyroid condition PAST SURGICAL HISTORY Procedure Laterality Date COLONOSCOPY FLX DX W/COLLJ SPEC WHEN PFRMD 11/16/2019 Colonoscopy EGD N/A 08/27/2016 ESOPHAGOGASTRODUODENOSCOPY TRANSORAL DIAGNOSTIC 11/16/2019 EGD PAST SURGICAL HISTORY OF 2007 coronary artery bypass two Current Outpatient Medications on File Prior to Visit Medication Sig famotidine (PEPCID) 20 mg tablet Take 1 tablet by mouth at bedtime as needed. sertraline (ZOLOFT) 50 mg tablet Take 1 tablet by mouth once daily. budesonide, enteric coated (ENTOCORT EC) 3 mg 24 hr capsule Take 3 capsules by mouth once daily. levothyroxine (SYNTHROID) 112 mcg tablet Take 1 tablet by mouth daily before breakfast. For thyroid. omeprazole (PRILOSEC) 40 mg capsule Take 1 capsule by mouth once daily. tiZANidine (ZANAFLEX) 4 mg tablet Take 1 tablet by mouth every 8 hours as needed (muscle spasms). cholestyramine (QUESTRAN) 4 gram packet Take 1 Packet by mouth three times daily with meals. furosemide (LASIX) 40 mg tablet MELATONIN ORAL Take 10 mg by mouth. Cyanocobalamin (VITAMIN B-12) 50 mcg tab Take 1 tablet by mouth once daily. nhiqplxc-sxhh-TT-calcium-mins (ONE-A-DAY WOMENS FORMULA) 18 mg iron-400 mcg-500 mg Ca tab Take 1 tablet by mouth once daily. apixaban (ELIQUIS) 5 mg tab(s) Take 1 tablet by mouth twice daily. atorvastatin (LIPITOR) 20 mg tablet Take 1 tablet by mouth once daily. For cholesterol. lisinopril (PRINIVIL) 10 mg tablet Take 0.5 tablets by mouth once daily. Per Dr. Funk metoprolol tartrate, short acting, (LOPRESSOR) 50 mg tablet Take 1 tablet by mouth twice daily. PerDr. Funk cholecalciferol (VITAMIN D-3) 2,000 unit tablet Take 2,000 Units by mouth once daily. nitroglycerin sublingual (NITROQUICK) 0.4 mg SL tablet Dissolve 1 tablet under the tongue every 5 minutes as needed. aspirin, enteric coated (ASPIRIN, ENTERIC COATED) 81 mg EC tablet Take 81 mg by mouth once daily. Current Facility-Administered Medications on File Prior to Visit Medication loperamide 2 mg cap(s) (IMODIUM) perflutren lipid microspheres 1.3 mL in NaCl (PF) 0.9% 10 mL injection (DEFINITY) sodium chloride 0.9 % (flush) 10 mL (BD POSIFLUSH) Social History Tobacco Use Smoking status: Never Smoker Smokeless tobacco: Never Used Vaping Use Vaping Use: Never used Substance Use Topics Alcohol use: No Drug use: No ALLERGIES Allergen Reactions Novocain [Procaine * Other: See Comments Blood pressure rises Review of Systems: Cardiopulmonary: denies chest pain, palpitations Respiratory: denies shortness of breath GI/: denies recent + nausea, vomiting, diarrhea, constipation, incontinence, + abdominal pain Neuro: denies tremors, loss of feeling, + dizziness, seizure, blackout, paresthesia, facial paresthesia, facial weakness, difficulty in speech, slurring of words, dysarthria, dysphagia, memory loss, headache, vision changes, loss of hearing unless otherwise noted in HPI. Physical Exam: Patient is alert and in no distress. Dress is appropriate. Mood is appropriate Breathing appears regular and unstressed Neurologic examination: Limited exam due to virtual platform. No formal MMSE performed. CN: extraocular movements intact with no nystagmus, face is symmetric with no facial droop, hearingintact bilaterally, shoulder shrug is symmetric. Motor exam shows 5/5 strength symmetric through the upper and lower extremities in all groups observed. RODRI sensory exam due to VV. Coordination: No dysmetria on finger to nose. No tremors noted. No drift seen. Gait normal in stance and pattern. Labs/studies: Outpatient Cardiac Monitoring 12/29/21: Patient had a min HR of 34 bpm, max HR of 187 bpm, and avg HR of 84 bpm. Predominant underlying rhythm was Atrial Fibrillation. 11 Supraventricular Tachycardia runs occurred, the run with the fastest interval lasting 8 beats with a max rate of 152 bpm, the longest lasting 10 beats with an avg rate of 111 bpm. Atrial Fibrillation occurred (62% burden), ranging from 56-187 bpm (avg of 97 bpm), the longest lasting 16 hours 43 mins with an avg rate of 89 bpm. 1 Pause occurred lasting 3.3 secs (18 bpm). Isolated SVEs were rare (<1.0%), SVE Couplets were rare (<1.0%), and SVE Triplets were rare (<1.0%). Isolated VEs were rare (<1.0%, 349), VE Couplets were rare (<1.0%, 1753), and VE Triplets were rare (<1.0%, 61). Ventricular Bigeminy and Trigeminy were present. MD notification criteria for Rapid Atrial Fibrillation met - notified Reba Mcnally on 29 Dec 2021 at 08:[address] (ER). MRI Report MRI BRAIN WO IVCON Exam End: 12/28/2021 10:22 AM (Final result) Narrative: * * *Final Report* * * DATE OF EXAM: Dec 28 2021 10:10AM [facility] 0294 - MRI BRAIN WO IVCON / PROCEDURE REASON: Vertigo * * * * Physician Interpretation * * * * COMPARISONS: Head CT from 10/12/2021. HISTORY: Vertigo. TECHNIQUE: MRI brain without contrast. MRA neck carotids. MRA [place]. MQ: [id number] RESULT: MRI BRAIN: Acute abnormality: None. No restricted diffusion concerning for acute ischemia. No abnormal susceptibility concerning for acute hemorrhage. No evidence for acute intracranial abnormality. This allowing for change in modality stable senescent volume loss, microvascular ischemia, accentuation of CSF spaces and ventricular dilation. No infarct/hemorrhage, mass effect or collections. Normal bones & skull base. MRA NECK CAROTIDS AND MRA [place]: Irregularity of vessels suggesting atherosclerosis. Most significant disease is identified at bilateral TELETYPE TECHNICIAN with high-grade stenosis at proximal left P2 segment and long segment nonvisualization of vessel at distal P1 and proximal P2 right TELETYPE TECHNICIAN. This likely represents atherosclerotic disease and may be further characterized by clinical correlation and CTA if indicated. This is unlikely to cause patient's symptoms of vertigo. Origins of bilateral ICA reveal 0% narrowing (by NASCET). Otherwise remaining extracranial as well as intracranial carotids, vertebrobasilar and cerebral arteries are normal in course, caliber and branching pattern without hemodynamically significant vascular disease. Impression: IMPRESSION: 1. Age-appropriate unremarkable MRI brain. 2. 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 3. Patent remaining extra/intracranial MRA. Instantizer Operator: JESUS Transcribe Date/Time: Dec 28 2021 11:13A Dictated by : MIGUELANGEL KOHLI MD This examination was interpreted and the report reviewed and electronically signed by: MIGUELANGEL KOHLI MD on Dec 28 2021 11:17AM EST Complete Results Component Latest Ref Rng & Units 10/12/2021 WBC 3.70 - 11.00 k/uL 6.88 RBC 3.90 - 5.20 m/uL 4.55 Hemoglobin 11.5 - 15.5 g/dL 12.6 Hematocrit 36.0 - 46.0 % 39.2 MCV 80.0 - 100.0 fL 86.2 MCH 26.0 - 34.0 pG 27.7 MCHC 30.5 - 36.0 g/dL 32.1 RDW-CV 11.5 - 15.0 % 13.5 Platelet Count 150 - 400 k/uL 212 MPV 9.0 - 12.7 fL 10.7 Neut% % 62.0 Abs Neut (ANC) 1.45 - 7.50 k/uL 4.24 Lymph% % 25.1 Abs Lymph 1.00 - 4.00 k/uL 1.73 Hooker% % 11.3 Abs Hooker <0.87 k/uL 0.78 Eosin% % 1.3 Abs Eosin <0.46 k/uL 0.09 Baso% % 0.3 Abs Baso <0.11 k/uL <0.03 Nucleated Reds 0 /100 WBC 0.0 Absolute nRBC <0.01 k/uL <0.01 Diff Type Auto Diff Protein, Total 6.3 - 8.0 g/dL 6.9 Albumin 3.9 - 4.9 g/dL 4.1 Calcium 8.5 - 10.2 mg/dL 9.8 Bilirubin, Total 0.2 - 1.3 mg/dL 0.5 Alkaline Phosphatase 34 - 123 U/L 114 AST 13 - 35 U/L 22 Glucose 74 - 99 mg/dL 100 (H) BUN 7 - 21 mg/dL 17 Creatinine 0.58 - 0.96 mg/dL 1.38 (H) Sodium 136 - 144 mmol/L 141 Potassium 3.7 - 5.1 mmol/L 4.2 Chloride 97 - 105 mmol/L 101 CO2 22 - 30 mmol/L 28 Anion Gap 9 - 18 mmol/L 12 ALT 7 - 38 U/L 22 eGFR- 45 eGFR-All Other Races . 37 Assessment/Plan: R42 Vertigo (primary encounter diagnosis) R42 Lightheadedness Z86.79 History of coronary artery disease Comment: Patient previously seen for dizziness which patient describes as a lightheaded feeling. Previously reported spinning sensations, however, today she reports an episode where she stood up and felt lightheaded, falling into the wall. Unable to assess orthostatic VS today due to virtual platform, however, remaining exam unremarkable within limitations. Given description of events, concern for possible VBI, stroke, or syncope and further workup completed. MRI of brain and MRA of head and neck completed noting only high grade TELETYPE TECHNICIAN narrowing but no findings to correlate with patient's symptoms. Note, she is currently taking Eliquis, lipitor, and ASA. Discussed importance of medication compliance, healthy diet, and BP/lipid management. Outpatient youth nutritional monitor also ordered with finding of Afib RVR, one pause, and SVT. Patient has since had follow up with her analyst programmer and medication adjustments were made. She will continue to follow with her analyst programmer regarding medications. Aspreviously noted, unable to complete orthostatic VS at time of today's appointment, however, will re assess at time of follow up and if patient still experiencing lightheadedness or positive orthostatics, may consider tilt table testing. R56.9 Pseudoseizures (HCC) Comment: Hx of events suggestive of PNES. Episodes involve sudden freezing and pt becomes nonverbal. Her daughter reports last episode was a few weeks ago. Past records not available at time of appointment today. As records unavailable and episodes continue to occur, will place referral to epilepsyclinic. R41.3 Memory problem Comment: Patient reports no further changes in memory since previous appointment. Unable to complete MOCA due to virtual platform and patient does not desire to complete memory testing. Discussed neurocognitive battery testing, however, patient again declines as she states she is not interested in further evaluation at this time. R10.9 Abdominal pain, unspecified abdominal location Comment: Patient reporting significant abdominal pain. Pain present when standing or walking and per patient can become severe causing SOB. Also noting difficulty swallowing. Pt reports poor diet, only drinking Ensure on occasion. Per patient's daughter she has an appointment to review sx in February/March, however, recommend they contact PCP for sooner appointment as lack of nutrition/hydration can lead to decreased blood pressure and lightheadedness. [facility] on 01/10/22 HOME SLEEP APNEA TEST (HSAT) CONSULT TO NEUROLOGY Melvina Johnson APRN.RAYNE I spent a total of 45 minutes on the date of the service which included preparing to see the patient, [id number] patient care, completing clinical documentation, obtaining and/or reviewing separately obtained history, performing a medically appropriate examination, counseling and educating the pat ient/family/caregiver and ordering medications, tests, or procedures. [facility] History of Present illness Narrative* Lizette Dykes RN - 05/09/2022 2:49 PM EDT Images from the original note were not included. [facility]ight CDM Enrollment Provider Action/FYI: Community Monitoring PSS Pool: Please assist patient with scheduling a follow up appointment with Bal Denise MD (last visit 03/19/22 - patient to get labs drawn and Return to Care in 4 weeks - was scheduled for 04/27/22 but this appointment had to be CANCELLED due to provider unavailable) [facility] [phone] TOMORROW 05/10/22. Thank you Spoke with patient's daughter Antonella and validated involvement in this patient's care. Agreed to phone call follow ups. Instructed on ordered labs and need for follow up appointment . Antonella will discuss with patient and agreed to have production planner scheduler call tomorrow. Patient goes to counseling and has life alert (hx of fall this year, on anticoagulation). Enroll in inSight with [facility] [phone] Last Bal Denise MD visit 03/19/22 Hospital follow up from [facility] - ablation Consult: IRENE and CARD BMP, CBC and Return to Care in 4 weeks - had to be rescheduled Patient referred by: [facility] John Contact made with patient: Yes - Patient identified by name and . Discussed care with daughter Rosario this is Lizette Dykes RN and I am calling from Bal Denise MD office at the [facility]. I am a RN Investigator Cash Shortage with our inSight Chronic Disease Management program. Bal Denise MD wanted me to reach out to help you manage your health at home. Our goal is to keep you well at home. We want to help you manage your chronic disease by providing a safety net of resources around you, getting you the care you need in a timely manner, and hopefully keep you out of the ED and hospital. I will send you a few questions once a week through your [employer] account. It will automaticallyshow up for you to complete. There are simple questions that will help us identify if you have any concerns or symptoms and I will call you to help get what you need. We will be able to connect you, review your symptoms, do an on demand visit, or communicate with Bal Denise MD if needed. I am going to sign you up for the program now. Enrollment Questions: Let's get you enrolled in the program. Yes, Do you have regular access to a computer/smartphone? No, Are you offering patient a biweekly phone call? yes/no: Yes. Goal Setting: I would like to take some time today to discuss your personal health goals. Yes, patient has goals. Capture the goal the patient wants to accomplish: Active Goals - Current status as of 05/09/2022 at 3:26 PM Patient Stated Avoid hospitalizations, and maintain current independence (pt-stated) . Does the goal align with programs offered at the [facility]? No Patient accepts telephonic outreach Thank you for your time today. I am excited to work together in managing your health! I will check back within in two weeks to see how things are going. If questions or concerns arise betweenphone calls, please reach out to your PCP s office. (Place in active status for inSight and place na me in care team and update next patient outreach data to next business day two weeks from today s date) Most people know what to do to become healthier, yet struggle to put it into action on their own.Itcan be hard to maintain a healthy lifestyle, especially when life is so stressful. Can we connect you with a [facility] Torch Straightener And Heater to find a program that could help you meet your goals? No Closing: Patient accepts telephonic outreach Thank you for your time today. I am excited to work together inmanaging your health! I will check back within in two weeks to see how things are going. If questions or concerns arise between phone calls, please reach out to your PCP s office. (Place in active status for inSight and place name in care team and update next patient outreach data to next business d ay two weeks from today s date) documented in this [facility] History of Present illness Narrative* Lizette Dykes RN - 05/29/2022 8:22 AM EDT inSight CDM Escalation Follow Up Action/FYI: Did not go to Emergency Department, daughter Antonella will check on patient today and will call [facility] [phone] for worsening or new symptoms or if needs appointment with Bal Denise MD Contact made with patient: Patient identified by name and Discussed care with daughter Patient Escalated to Virtualist on: 05/28/22 Reason for Escalation: For fall 2 months ago with LOC, on blood thinners Virtualist Intervention: Patient instructed to go to the ED; refuses ED or appt so JONATHAN will try go get her PCP appt tomorrow. [facility] RN discussed going to Emergency Department with daughter and patient - they agreed to go to [facility]. Disposition: Patient stable no further interventions documented in this [facility] History of Present illness Narrative* Lizette Dykes RN - 06/20/2022 12:11 PM EDT INSIGHT CDM TELEPHONIC OUTREACH Provider Action/FYI: inSight outreach deferred - Bal Denise MD appointment today Next inSight outreach in 2 weeks Appointments for Next 60 Days Date Time Provider Location Dept Phone 06/20/2022 8:20 AM BAL DENISE [facility] [phone] 06/27/2022 8:20 AM BAL DENISE [facility] [phone] Contact made with patient: n/a documented in this [facility]04-26-2022 Miscellaneous Notes* Telephone Encounter - Liz Esparza - 01/02/2022 1:33 PM EDT This staff LVM for patient checking on her after ER visit. documented in this [facility]04-22-2022 Miscellaneous Notes* Telephone Encounter - Liz Esparza - 12/29/2021 1:47 PM EDT Cardiology consult placed by Dr. Morales documented in this [facility]04-01-2022 Nurse Note* Kathy Pennington LPN - 12/08/2021 11:19 AM EDT EVENT MONITOR DISPOSABLE PATCH INSTRUCTIONS Patient Name: Tanya Sanchez [facility] Number: [id number] Skin prepped and cleansed with alcohol Patch secured to prepped area Monitor Activated Serial #: [id number] Patient Instructed: 1.) Prescribed order timeframe 2.) Bathing guidelines 3.) Usage of event button and diary documentation 4.) Return of monitor at the end of prescribed order 5.) Call with problems [phone] or [phone] ext. [phone] Patient expresses a good understanding of instructions Kathy Pennington LPN documented [facility] History of Present illness Narrative* Bal Morales Jr., MD - 12/08/2021 8:55 AM EDT NEW PATIENT (CONSULT) HISTORY AND PHYSICAL EXAM PRIMARY CARE PHYSICIAN: Bal Denise MD REASON FOR CONSULT: Vertigo REFERRING PHYSICIAN: Erich Mccullough MD CHIEF COMPLAINT: Dizziness Consultation requested by Erich Mccullough MD for an opinion regarding chief complaint of No chief complaint on file. and my final recommendations will be communicated back to the requesting physician by way of sharedmedical record or letter via US mail. 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 Recently seen in ER on 10/12/21 and per report: Patient presenting for evaluation secondary to headaches, frequent falls, episodes of blacking out,and dizziness. Patient reports that she has been having these symptoms for quite some time. She reports that she hit her head on something sharp years ago, and since then she has been having issues with dizziness. She describes the dizziness as a lightheadedness on standing and has issues with blacking out frequently. Patient states that she has been seen multiple times for this in the past at outside facilities, and has had negative work-ups. Patient reports that her daughter convinced her to come to the emergency department today to get a second opinion. Patient denies any new symptoms suchas fever cough nausea vomiting diarrhea dysuria. She denies any visual changes numbness weakness orspeech difficulty associated with it. Patient has a underlying history of Alzheimer's dementia, pseudoseizures, and hypothyroidism. Patient and daughter present - neither know why present today. Pt with poor eye contact, and focused on trimming fingernails more than appointment. Symptoms occur almost once per week - I hit the wall and I stumbles around a lot . States symptoms present for years. They report no prior workup. States head starts spinning and yesterday it was real bad . If sits down spinning sensation will go away. No associated headache, but then states honestly I do not know . Symptoms often occur in association with position change, but can also be present while up on feet for some time ambulating. No hearing changes. However, does state yes to ear pain but when asked to describe states pulling a blank right now . Then states she has lock jaw while hold right jaw and it hurts a lot and does not eat as a result. Overall poor historian. States she has passed out with the spells. Review of records show normal EEG in 2019. However, states she has pseudoseizures , in which she is standing and suddenly cannot move or talk, then starts shaking, no tongue bite or bladder incontinence, is helped to a chair, last couple minutes. Reports that after episodes she is exhausted and done for the day. States diagnosis was in [place]. When asked about details of events, patient and family as well say they cannot tell me due to poor memory. CT brain in 10/12/21 showed no evidence of acute change or definite etiology of symptoms and per rad report: Acute change: No evidence of an acute infarct or other acute parenchymal process. Hemorrhage: No evidence of acute intracranial hemorrhage. ECASS hemorrhagic transformation score: Not Applicable Mass Lesion / Mass Effect: There is no evidence of an intracranial mass or extraaxial fluid collection. No significant mass effect. Chronic change: Scattered patchy foci of low attenuation are present within supratentorial white matter which is a nonspecific finding but likely represents mild microvascular ischemia. Parenchyma: There is no significant volume loss. The brain parenchyma is otherwise within normal limits for age. Ventricles: The ventricles are within normal limits of size and configuration for age. Paranasal sinuses and skull base: The visualized paranasal sinuses are grossly clear. The skull base and imaged soft tissues are unremarkable. Statistics Intern (topogram) images: No additional findings. States last episode of event was 2 weeks ago when went to chiropractor, and started shaking really bad. EMS was not called. Review of labs show slowly progressive worsening renal function over time. Regarding memory, states she can say one word, then begin to start saying something and forgets what she is saying. Pt does not drive. Losing things around the house but does not provide specifics. Son staying with pt. When asked about head trauma, states she fell on her head years ago (slipped on ice). Then states she has done this 3 different times. Pt with known afib and bradycardia on visit, but when asked who is following her for cardiac conditions she states I have no clue . Then states years ago was following with Dr. Funk. REVIEW OF SYSTEMS GENERAL:No malaise or fevers. HEENT:Negative for frequent or significant headaches, No changes in hearing or vision, no nose bleeds or other nasal problems NECK:Negative for lumps, goiter, pain and significant neck swelling RESPIRATORY: +Non productive cough and + SOB. CARDIOVASCULAR: Occasional CP. +Palpitations. GASTROINTESTINAL: Chronic abdominal pain due to hernia. MUSCULOSKELETAL: Chronic no specific diffuse joint pain. NEUROLOGIC:Negative for focal numbness or weakness, headaches and dizziness or syncope, vision changes, speech/language changes, changes in gait or falls -- besides those complaints as above in HPI. SKIN:Negative for lesions, rash, and itching. HEMATOLOGIC/LYMPHATIC/IMMUNOLOGIC:Negative for prolonged bleeding, bruising easily or swollen nodes. ENDOCRINE: Negative for cold or heat intolerance, polyuria, polydipsia and goiter. LAB/IMAGING: Reviewed and include: WBC (k/uL) Date Value 10/12/2021 6.88 RBC (m/uL) Date Value 10/12/2021 4.55 Hemoglobin (g/dL) Date Value 10/12/2021 12.6 Hematocrit (%) Date Value 10/12/2021 39.2 MCV (fL) Date Value 10/12/2021 86.2 MCH (pG) Date Value 10/12/2021 27.7 MCHC (g/dL) Date Value 10/12/2021 32.1 RDW-CV (%) Date Value 10/12/2021 13.5 Platelet Count (k/uL) Date Value 10/12/2021 212 MPV (fL) Date Value 10/12/2021 10.7 Glucose (mg/dL) Date Value 10/12/2021 100 (H) BUN (mg/dL) Date Value 10/12/2021 17 Creatinine (mg/dL) Date Value 10/12/2021 1.38 (H) Sodium (mmol/L) Date Value 10/12/2021 141 Potassium (mmol/L) Date Value 10/12/2021 4.2 Chloride (mmol/L) Date Value 10/12/2021 101 CO2 (mmol/L) Date Value 10/12/2021 28 Protein, Total (g/dL) Date Value 10/12/2021 6.9 Albumin (g/dL) Date Value 10/12/2021 4.1 Calcium (mg/dL) Date Value 10/12/2021 9.8 Alkaline Phosphatase (U/L) Date Value 10/12/2021 114 Bilirubin, Total (mg/dL) Date Value 10/12/2021 0.5 AST (U/L) Date Value 10/12/2021 22 ALT (U/L) Date Value 10/12/2021 22 MEDICATIONS: famotidine (PEPCID) 20 mg tablet Take 1 tablet by mouth at bedtime as needed. levothyroxine (SYNTHROID) 112 mcg tablet Take 1 tablet by mouth daily before breakfast. For thyroid. sertraline (ZOLOFT) 50 mg tablet Take 1 tablet by mouth once daily. omeprazole (PRILOSEC) 40 mg capsule Take 1 capsule by mouth once daily. budesonide, enteric coated (ENTOCORT EC) 3 mg 24 hr capsule Take 3 capsules by mouth once daily. tiZANidine (ZANAFLEX) 4 mg tablet Take 1 tablet by mouth every 8 hours as needed (muscle spasms). cholestyramine (QUESTRAN) 4 gram packet Take 1 Packet by mouth three times daily with meals. furosemide (LASIX) 40 mg tablet MELATONIN ORAL Take 10 mg by mouth. Cyanocobalamin (VITAMIN B-12) 50 mcg tab Take 1 tablet by mouth once daily. uqsmpldg-vwem-SQ-calcium-mins (ONE-A-DAY WOMENS FORMULA) 18 mg iron-400 mcg-500 mg Ca tab Take 1 tablet by mouth once daily. apixaban (ELIQUIS) 5 mg tab(s) Take 1 tablet by mouth twice daily. atorvastatin (LIPITOR) 20 mg tablet Take 1 tablet by mouth once daily. For cholesterol. lisinopril (PRINIVIL) 10 mg tablet Take 0.5 tablets by mouth once daily. Per Dr. Funk metoprolol tartrate, short acting, (LOPRESSOR) 50 mg tablet Take 1 tablet by mouth twice daily. PerDr. Funk cholecalciferol (VITAMIN D-3) 2,000 unit tablet Take 2,000 Units by mouth once daily. nitroglycerin sublingual (NITROQUICK) 0.4 mg SL tablet Dissolve 1 tablet under the tongue every 5 minutes as needed. aspirin, enteric coated (ASPIRIN, ENTERIC COATED) 81 mg EC tablet Take 81 mg by mouth once daily. HISTORIES PAST MEDICAL HISTORY Diagnosis Date Alzheimer's dementia without behavioral disturbance (HCC) Dermatitis GERD (gastroesophageal reflux disease) Hypothyroidism Pseudoseizures (HCC) Thyroid condition FAMILY HISTORY Adopted: Yes Problem Relation Age of Onset other (georginaholoisyanni) Father SOCIAL HISTORY Social History Tobacco Use Smoking status: Never Smoker Smokeless tobacco: Never Used Vaping Use Vaping Use: Never used Substance Use Topics Alcohol use: No Drug use: No PHYSICAL EXAMINATION Blood pressure 110/62, pulse (!) 57, temperature 36.4 C (97.6 F), resp. rate 18, weight 112.9 kg (249 lb), SpO2 99 %. GENERAL EXAM: General appearance: NAD, pleasant. HEENT: NC/AT, nasal congestion absent, no oral lesions, membranes moist. [place] exam limited due to wax build up. NECK: No masses, supple. Lungs: CTA bilaterally. CV: Artemio. No carotid bruits. Extr: 2+ pedal edema. No evidence of fasciculations. Extremity pulses palpable and normal. Skin: Cool to touch. NEUROLOGICAL EXAM: General: Awake, alert, oriented x3 (person,place,time), speech fluent, no dysarthria; comprehension, naming, repetition intact. Will not cooperate with MOCA. CN: PERRL, fundi with no evidence of papilledema, EOMI and without nystagmus, VFF to confrontation,facial sensation and strength are normal and symmetric, hearing is intact to finger rub bilaterally, palate and tongue movements are intact and symmetric. SCM and trapezius strength normal. Motor: Normal tone, bulk and strength (5/5) bilaterally (throughout extremities x4). Reflexes: 1/4 and symmetric, plantar stimulation is mute. Coordination: FNF, TAHNH, HTS intact. No tremors. Sensation: Light touch and vibraion diminished in feet in stocking pattern. No evidence of neglect. Gait: Mild wide based but stable. Romberg normal. Assessment and Plan: ASSESSMENT/PLAN: 1. Vertigo - ICD9: 780.4, ICD10: R42 (primary diagnosis) 2. Lightheadedness - ICD9: 780.4, ICD10: R42 3. History of coronary artery disease - ICD9: V12.59, ICD10: Z86.79 Difficult to determine etiology of events that have been referred to as dizziness and lightheadedness, due to patient being a poor historian (as well as family). Today describes spinning sensations consistent with vertigo but on review of medical records, events have been discussed as lightheadedness with blacking out . Non-focal neuro exam except sensory deficits below ankles as above that may be due to significant pedal edema. Episodes described today are not associated with any other focal neuro deficit. No nystagmus on exam to suggest peripheral or vestibular cause. Ddx at this time, from neuro standpoint, given history would include possible VBI given or stroke given CV risk factors including Afib, HTN, HLD. However, if this is not vertigo but rather lightheadedness or presyncope/syncope, need to consider cardiac etiology given known history of afib and CAD. Discussed ddx with pt and her daughter. Plan as follows: -MRI brain and MRA head and neck to evaluate for stroke resulting in symptoms of vertigo as well asVBI. -14 day Event monitor to evaluate for cardiac arrhythmia. -Recommend cardiology evaluation given years since last follow up. Referral placed as pt wanting totransition to new analyst programmer. -Orthostatics negative in office today, but will repeat on follow up with consideration for tilt table if positive. 4. Pseudoseizure - ICD9: 300.11, ICD10: F44.5 Limited history regarding events. EEG in 2019 normal. I have no prior records. 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 Will attempt to get outside records. If not available and episodes continue to occur, then consider referral to epilepsy for EMU admit. 5. Memory problem - ICD9: 780.93, ICD10: R41.3 Patient will not cooperate with MOCA. Poor historian. Vit B12 and TSH in recent years unremarkable.Will attempt to get more details next visit. Consider referral to neuropscy or center [facility] for cognitive assessment. Bal Morales MD I spent a total of 65 minutes on the date of the service which included preparing to see the patient, [id number] patient care, completing clinical documentation, obtaining and/or reviewing separately obtained history, performing a medically appropriate examination, counseling and educating the pat ient/family/caregiver, ordering medications, tests, or procedures, independently interpreting results (not separately reported) and communicating results to the patient/family/caregiver. [facility] Miscellaneous Notes* Telephone Encounter - Bharti Pickett LPN - 12/01/2021 12:52 PM EDT Copy for chart. Daughter notified and will pick up driver copy in medical records. * Telephone Encounter - Edwina Martino Ma - 12/01/2021 9:00 AM EDT Form placed on provider desk for signature. * Telephone Encounter - Bal Denise MD - 11/30/2021 4:45 PM EDT Do we have dnr form * Telephone Encounter - Loyda Moffett RN - 11/30/2021 3:15 PM EDT Daughter (Antonella) calls to report that the aide coming in to see patient with [facility] was discussing code status with patient. Patient reports that she wants to be a DNRCC and Antonella reports that [place] is requesting a DNR form be completed by provider to have in the home. Antonella said to please call her with any questions at [phone]. Please review and advise, Loyda Moffett RN documented in [facility] History of Past illness Narrative* Problem Noted Date Resolved Date Obesity, Class II, BMI 35-39.9 09/15/2019 1 Thyroid condition 09/18/2021 documented as of this encounter (statuses as of 12/01/2021) [facility] of [facility] Narrative* Problem Noted Date Resolved Date Obesity, Class II, BMI 35-39.9 09/15/2019 1 Thyroid condition 09/18/2021 documented as of this encounter (statuses as of 12/08/2021) [address] History of Past illness Narrative* Problem Noted Date Resolved Date Obesity, Class II, BMI 35-39.9 09/15/2019 1 Thyroid condition 09/18/2021 documented as of this encounter (statuses as of 12/29/2021) [address] History of Past illness Narrative* Problem Noted Date Resolved Date Obesity, Class II, BMI 35-39.9 09/15/2019 1 Thyroid condition 09/18/2021 documented as of this encounter (statuses as of 01/02/2022) [address] History of Past illness Narrative* Problem Noted Date Resolved Date Obesity, Class II, BMI 35-39.9 09/15/2019 1 Thyroid condition 09/18/2021 documented as of this encounter (statuses as of 01/16/2022) [address] History of Past illness Narrative* Problem Noted Date Resolved Date Obesity, Class II, BMI 35-39.9 09/15/2019 1 Thyroid condition 09/18/2021 documented as of this encounter (statuses as of 01/29/2022) [address] History of Past illness Narrative* Problem Noted Date Resolved Date Obesity, Class II, BMI 35-39.9 09/15/2019 1 Thyroid condition 09/18/2021 documented as of this encounter (statuses as of 02/16/2022) [address] History of Past illness Narrative* Problem Noted Date Resolved Date Obesity, Class II, BMI 35-39.9 09/15/2019 1 Thyroid condition 09/18/2021 documented as of this encounter (statuses as of 02/16/2022) [address] History of Past illness Narrative* Problem Noted Date Resolved Date Obesity, Class II, BMI 35-39.9 09/15/2019 1 Thyroid condition 09/18/2021 documented as of this encounter (statuses as of 03/09/2022) [facility] Narrative* Problem Noted Date Resolved Date Obesity, Class II, BMI 35-39.9 09/15/2019 1 Thyroid condition 09/18/2021 documented as of this encounter (statuses as of 03/16/2022) [facility] Narrative* Problem Noted Date Resolved Date Obesity, Class II, BMI 35-39.9 09/15/2019 1 Thyroid condition 09/18/2021 documented as of this encounter (statuses as of 03/19/2022) [facility] Narrative* Problem Noted Date Resolved Date Obesity, Class II, BMI 35-39.9 09/15/2019 1 Thyroid condition 09/18/2021 documented as of this encounter (statuses as of 03/20/2022) [facility] Narrative* Problem Noted Date Resolved Date Obesity, Class II, BMI 35-39.9 09/15/2019 1 Thyroid condition 09/18/2021 documented as of this encounter (statuses as of 03/21/2022) [facility] Narrative* Problem Noted Date Resolved Date Obesity, Class II, BMI 35-39.9 09/15/2019 1 Thyroid condition 09/18/2021 documented as of this encounter (statuses as of 03/22/2022) [facility] Narrative* Problem Noted Date Resolved Date Obesity, Class II, BMI 35-39.9 09/15/2019 1 Thyroid condition 09/18/2021 documented as of this encounter (statuses as of 04/20/2022) [facility] Narrative* Problem Noted Date Resolved Date Obesity, Class II, BMI 35-39.9 09/15/2019 1 Thyroid condition 09/18/2021 documented as of this encounter (statuses as of 05/01/2022) [facility] Narrative* Problem Noted Date Resolved Date Obesity, Class II, BMI 35-39.9 09/15/2019 1 Thyroid condition 09/18/2021 documented as of this encounter (statuses as of 05/04/2022) [address] History of Past illness Narrative* Problem Noted Date Resolved Date Obesity, Class II, BMI 35-39.9 09/15/2019 1 Thyroid condition 09/18/2021 documented as of this encounter (statuses as of 05/09/2022) [address] History of Past illness Narrative* Problem Noted Date Resolved Date Obesity, Class II, BMI 35-39.9 09/15/2019 1 Thyroid condition 09/18/2021 documented as of this encounter (statuses as of 05/28/2022) [address] History of Past illness Narrative* Problem Noted Date Resolved Date Obesity, Class II, BMI 35-39.9 09/15/2019 1 Thyroid condition 09/18/2021 documented as of this encounter (statuses as of 05/28/2022) [address] History of Past illness Narrative* Problem Noted Date Resolved Date Obesity, Class II, BMI 35-39.9 09/15/2019 1 Thyroid condition 09/18/2021 documented as of this encounter (statuses as of 05/29/2022) [address] History of Past illness Narrative* Problem Noted Date Resolved Date Obesity, Class II, BMI 35-39.9 09/15/2019 1 Thyroid condition 09/18/2021 documented as of this encounter (statuses as of 05/30/2022) [address] History of Past illness Narrative* Problem Noted Date Resolved Date Obesity, Class II, BMI 35-39.9 09/15/2019 1 Thyroid condition 09/18/2021 documented as of this encounter (statuses as of 06/06/2022) [address] History of Past illness Narrative* Problem Noted Date Resolved Date Obesity, Class II, BMI 35-39.9 09/15/2019 1 Thyroid condition 09/18/2021 documented as of this encounter (statuses as of 06/12/2022) [facility]* Problem Noted Date Resolved Date Obesity, Class II, BMI 35-39.9 09/15/2019 1 Thyroid condition 09/18/2021 documented as of this encounter (statuses as of 06/19/2022) [address] History of Past illness Narrative* Problem Noted Date Resolved Date Obesity, Class II, BMI 35-39.9 09/15/2019 1 Thyroid condition 09/18/2021 documented as of this encounter (statuses as of 06/20/2022) [facility]* Problem Noted Date Resolved Date Obesity, Class II, BMI 35-39.9 09/15/2019 1 Thyroid condition 09/18/2021 documented as of this encounter (statuses as of 06/27/2022) [facility] N[facility]* Problem Noted Date Resolved Date Obesity, Class II, BMI 35-39.9 09/15/2019 1 Thyroid condition 09/18/2021 documented as of this encounter (statuses as of 07/04/2022) [facility]* Problem Noted Date Resolved Date Obesity, Class II, BMI 35-39.9 09/15/2019 1 Thyroid condition 09/18/2021 documented as of this encounter (statuses as of 07/18/2022) [facility]* Problem Noted Date Resolved Date Obesity, Class II, BMI 35-39.9 09/15/2019 1 Thyroid condition 09/18/2021 documented as of this encounter (statuses as of 07/18/2022) [facility]* Problem Noted Date Resolved Date Obesity, Class II, BMI 35-39.9 09/15/2019 1 Thyroid condition 09/18/2021 documented as of this encounter (statuses as of 08/27/2022) [address] History of Past illness Narrative* Problem Noted Date Resolved Date Obesity, Class II, BMI 35-39.9 09/15/2019 1 Thyroid condition 09/18/2021 documented as of this encounter (statuses as of 08/28/2022) [address] History of Past illness Narrative* Problem Noted Date Resolved Date Obesity, Class II, BMI 35-39.9 09/15/2019 1 Thyroid condition 09/18/2021 documented as of this encounter (statuses as of 09/09/2022) [address]2020 History of Past illness Narrative* Problem Noted Date Resolved Date Obesity, Class II, BMI 35-39.9 09/15/2019 1 Thyroid condition 09/18/2021 documented as of this encounter (statuses as of 09/24/2022) [address] History of Past illness Narrative* Problem Noted Date Resolved Date Obesity, Class II, BMI 35-39.9 09/15/2019 1 Thyroid condition 09/18/2021 documented as of this encounter (statuses as of 09/25/2022) [address] History of Past illness Narrative* Problem Noted Date Resolved Date Obesity, Class II, BMI 35-39.9 09/15/2019 1 Thyroid condition 09/18/2021 documented as of this encounter (statuses as of 10/08/2022) [facility]* Problem Noted Date Resolved Date Obesity, Class II, BMI 35-39.9 09/15/2019 1 Thyroid condition 09/18/2021 documented as of this encounter (statuses as of 10/08/2022) [facility]* Problem Noted Date Resolved Date Obesity, Class II, BMI 35-39.9 09/15/2019 1 Thyroid condition 09/18/2021 documented as of this encounter (statuses as of 10/09/2022) [address]2020 History of Past illness Narrative* Problem Noted Date Resolved Date Obesity, Class II, BMI 35-39.9 09/15/2019 1 Thyroid condition 09/18/2021 documented as of this encounter (statuses as of 10/22/2022) [address]2020 History of Past illness Narrative* Problem Noted Date Resolved Date Obesity, Class II, BMI 35-39.9 09/15/2019 1 Thyroid condition 09/18/2021 documented as of this encounter (statuses as of 11/01/2022) [address]2020 History of Past illness Narrative* Problem Noted Date Resolved Date Obesity, Class II, BMI 35-39.9 09/15/2019 1 Thyroid condition 09/18/2021 documented as of this encounter (statuses as of 11/01/2022) [address]2020 History of Past illness Narrative* Problem Noted Date Resolved Date Obesity, Class II, BMI 35-39.9 09/15/2019 1 Thyroid condition 09/18/2021 documented as of this encounter (statuses as of 11/16/2022) [address]2020 History of Past illness Narrative* Problem Noted Date Resolved Date Obesity, Class II, BMI 35-39.9 09/15/2019 1 Thyroid condition 09/18/2021 documented as of this encounter (statuses as of 12/11/2022) [address] History of Past illness Narrative* Problem Noted Date Resolved Date Obesity, Class II, BMI 35-39.9 09/15/2019 1 Thyroid condition 09/18/2021 documented as of this encounter (statuses as of 12/17/2022) [address] History of Past illness Narrative* Problem Noted Date Resolved Date Obesity, Class II, BMI 35-39.9 09/15/2019 1 Thyroid condition 09/18/2021 documented as of this encounter (statuses as of 01/15/2023) [address] History of Past illness Narrative* Problem Noted Date Resolved Date Obesity, Class II, BMI 35-39.9 09/15/2019 1 Thyroid condition 09/18/2021 documented as of this encounter (statuses as of 01/15/2023) [address] History of Past illness Narrative* Problem Noted Date Resolved Date Obesity, Class II, BMI 35-39.9 09/15/2019 1 Thyroid condition 09/18/2021 documented as of this encounter (statuses as of 01/16/2023) [facility]* Problem Noted Date Resolved Date Obesity, Class II, BMI 35-39.9 09/15/2019 1 Thyroid condition 09/18/2021 documented as of this encounter (statuses as of 02/13/2023) [facility]* Problem Noted Date Resolved Date Obesity, Class II, BMI 35-39.9 09/15/2019 1 Thyroid condition 09/18/2021 documented as of this encounter (statuses as of 02/21/2023) [facility]* Problem Noted Date Resolved Date Obesity, Class II, BMI 35-39.9 09/15/2019 1 Thyroid condition 09/18/2021 documented as of this encounter (statuses as of 02/22/2023) [facility]* Problem Noted Date Resolved Date Obesity, Class II, BMI 35-39.9 09/15/2019 1 Thyroid condition 09/18/2021 documented as of this encounter (statuses as of 03/04/2023) [facility]* Problem Noted Date Diagnosed Date Resolved Date Obesity, Class II, BMI 35-39.9 09/15/2019 06/23/2020 Thyroid condition 09/18/2021 documented as of this encounter (statuses as of 03/20/2023) [facility]* Problem Noted Date Diagnosed Date Resolved Date Obesity, Class II, BMI 35-39.9 09/15/2019 06/23/2020 Thyroid condition 09/18/2021 documented as of this encounter (statuses as of 04/03/2023) [address] History of Past illness Narrative* Problem Noted Date Diagnosed Date Resolved Date Obesity, Class II, BMI 35-39.9 09/15/2019 06/23/2020 Thyroid condition 09/18/2021 documented as of this encounter (statuses as of 04/09/2023) [facility] Appointment Date:06/14/2022 11:30:00 AM Scheduled Provider: Location:[facility] Appointment Type:[facility] Evaluation note* Diagnosis Vertigo- Primary Dizziness and giddiness Lightheadedness Dizziness and giddiness History of coronary artery disease Personal history of other diseases of circulatory system Pseudoseizure Other convulsions Memory problem Memory loss [facility] Diagnosis Vertigo- Primary Dizziness and giddiness Lightheadedness Dizziness and giddiness History of coronary artery disease Personal history of other diseases of circulatory system Pseudoseizures (HCC) Other convulsions Memory problem Memory loss Abdominal pain, unspecified abdominal location [facility]* Diagnosis Encounter for screening mammogram for breast cancer [facility]* Diagnosis Thyroid condition Unspecified disorder of thyroid Hypothyroidism, unspecified type GERD without esophagitis Esophageal reflux [facility]* Diagnosis Acute gastric ulcer without hemorrhage or perforation- Primary Acute gastric ulcer without mention of hemorrhage, perforation, or obstruction Cellulitis of right lower extremity Cellulitis and abscess of leg, except foot Anemia, unspecified type Paroxysmal atrial fibrillation (HCC) Atrial fibrillation Stage 3 chronic kidney disease, unspecified whether stage 3a or 3b CKD (HCC) [facility]* Diagnosis Anemia, unspecified type- Primary [facility]* Diagnosis Anxiety with depression [facility]* Diagnosis CKD (chronic kidney disease) stage 1, GFR 90 ml/min or greater- Primary Chronic kidney disease, Stage I [facility]* Diagnosis Headache, unspecified headache type- Primary [facility]* Diagnosis Abdominal aortic aneurysm (AAA) without rupture [facility]* Diagnosis Essential hypertension Unspecified essential hypertension Atrial fibrillation, new onset (HCC) Atrial fibrillation Collagenous colitis Other and unspecified noninfectious gastroenteritis and colitis [facility]* Diagnosis Skin tear of lower leg without complication, right, initial encounter- Primary [facility]* Diagnosis Cellulitis of skin- Primary Cellulitis and abscess of unspecified site Skin tear of lower leg without complication, right, subsequent encounter Need for vaccination Need for prophylactic vaccination and inoculation against unspecified single disease [facility] Diagnosis Cellulitis of skin- Primary Cellulitis and abscess of unspecified site Open wound of right lower extremity, subsequent [facility] Open wound of right lower extremity, subsequent encounter- Primary [facility] Diagnosis Open wound of right lower extremity, subsequent encounter- Primary [facility] Diagnosis Anemia, unspecified type [facility] Diagnosis Thyroid condition Unspecified disorder of thyroid Hypothyroidism, unspecified type [facility]* Diagnosis CKD (chronic kidney disease) stage 1, GFR 90 ml/min or greater- Primary Chronic kidney disease, Stage I [facility]* Diagnosis Bronchitis- Primary Bronchitis, not specified as acute or chronic Alzheimer's dementia without behavioral disturbance (HCC) Alzheimer's disease Paroxysmal atrial fibrillation (HCC) Atrial fibrillation Chronic kidney disease, stage 3a (HCC) Major depressive disorder, single episode, moderate (HCC) Major depressive disorder, single episode, moderate Acute cough [facility] Diagnosis Collagenous colitis Other and unspecified noninfectious gastroenteritis and colitis Essential hypertension Unspecified essential hypertension Atrial fibrillation, new onset (HCC) Atrial fibrillation Anxiety with depression [facility] Diagnosis Rib pain Chest pain, unspecified Hip pain Pain in joint, pelvic region and thigh Acute left ankle pain Foot pain, left Pain in limb GERD without esophagitis Esophageal reflux [facility]* Diagnosis Left sided sciatica- Primary Sciatica TMJ dysfunction Temporomandibular joint disorders, unspecified GERD without esophagitis Esophageal reflux Hiatal hernia Diaphragmatic hernia without mention of obstruction or gangrene Fatigue, unspecified type Anxiety with depression [facility] Diagnosis Hypokalemia- Primary Hypopotassemia Thyroid condition Unspecified disorder of thyroid Hypothyroidism, unspecified type [facility]* Diagnosis Anemia, unspecified type [facility] Diagnosis Hypothyroidism, acquired- Primary Unspecified hypothyroidism Thyroid condition Unspecified disorder of thyroid Hypothyroidism, unspecified type documented in this encounter [place] note* Diagnosis Thyroid condition Unspecified disorder of thyroid Hypothyroidism, unspecified type documented in this encounter [place] note* Diagnosis Rib pain Chest pain, unspecified Hip pain Pain in joint, pelvic region and thigh Acute left ankle pain Foot pain, left Pain in limb documented in this encounter [place] note* Diagnosis Left sided sciatica- Primary Sciatica Anxiety Anxiety state, unspecified Essential hypertension Unspecified essential hypertension documented in this encounter [place] note* Diagnosis Left sided sciatica- Primary Sciatica [facility] Diagnosis Essential hypertension- Primary Unspecified essential hypertension Other hyperlipidemia Hypertensive kidney disease with stage 3 chronic kidney disease, unspecified whether stage 3a or 3b CKD (HCC) Coronary artery disease involving mcgrath coronary artery of mcgrath heart without angina pectoris Paroxysmal atrial fibrillation (HCC) Atrial fibrillation Abdominal aortic aneurysm (AAA) without rupture, unspecified part (HCC) Collagenous colitis Other and unspecified noninfectious gastroenteritis and colitis Lower esophageal ring Congenital tracheoesophageal fistula, esophageal atresia and stenosis Iron deficiency Iron deficiency anemia, unspecified Hypothyroidism, unspecified type Psychogenic nonepileptic seizure Alzheimer's dementia without behavioral disturbance (HCC) Alzheimer's disease Asymptomatic bilateral carotid artery stenosis Occlusion and stenosis of carotid artery without mention of cerebral infarction Anxiety Anxiety state, unspecified Asymptomatic stenosis of posterior cerebral artery Vertigo Dizziness and giddiness History of syncope Other specified personal history presenting hazards to health Hyperglycemia Other abnormal glucose documented in this encounter [place] note* Diagnosis Hypothyroidism, unspecified type- Primary documented in this encounter [place] note* Diagnosis Rib pain Chest pain, unspecified Hip pain Pain in joint, pelvic region and thigh Acute left ankle pain Foot pain, left Pain in limb documented in this encounter [place] note* Diagnosis Sciatica of left side- Primary Sciatica [facility]* Diagnosis Sciatica of left side- Primary Sciatica documented in this encounter [place] note* Diagnosis Vertigo- Primary Dizziness and giddiness Alzheimer's dementia without behavioral disturbance (HCC) Alzheimer's disease History of syncope Other specified personal history presenting hazards to health Memory loss Hearing loss, unspecified hearing loss type, unspecified laterality Dementia without behavioral disturbance (HCC) Dementia, unspecified, without behavioral disturbance Cellulitis of left lower extremity Cellulitis and abscess of leg, except foot [facility] Diagnosis Cellulitis of skin- Primary Cellulitis and abscess of unspecified site [facility] Diagnosis Jannie infection- Primary Candidiasis of unspecified site [facility]* Diagnosis Cellulitis of lower leg- Primary Cellulitis and abscess of leg, except foot Localized edema Edema Essential hypertension Unspecified essential hypertension [facility] Diagnosis Pain in left lower leg- Primary [facility] Diagnosis Chronic left hip pain- Primary Pain in joint, pelvic region and thigh Chronic bilateral low back pain with left-sided sciatica [facility]* Diagnosis Alzheimer's dementia without behavioral disturbance (HCC)- Primary Alzheimer's disease [facility]* Diagnosis Chronic bilateral low back pain with bilateral sciatica- Primary Skin tear of right lower leg without complication, initial encounter [facility]* Diagnosis Abdominal aortic aneurysm (AAA) without rupture, unspecified part (HCC) [facility]* Diagnosis Syncope and collapse- Primary Hypotension, unspecified hypotension type Skin tear of right lower leg without complication, subsequent encounter Multiple abrasions Abrasion or friction burn of other, multiple, and unspecified sites, without mention of infection [facility] Diagnosis Syncope, unspecified syncope type- Primary Essential hypertension Unspecified essential hypertension Atrial fibrillation, new onset (HCC) Atrial fibrillation Coronary artery disease involving mcgrath coronary artery of mcgrath heart without angina pectoris Paroxysmal atrial fibrillation (HCC) Atrial fibrillation Abdominal aortic aneurysm (AAA) without rupture, unspecified part (HCC) Orthostasis Orthostatic hypotension Noninfected skin tear of right lower extremity, subsequent encounter [facility]* Diagnosis Chronic bilateral low back pain with bilateral sciatica [facility]* Diagnosis Spinal stenosis of lumbar region with neurogenic claudication- Primary Spinal stenosis, lumbar region, with neurogenic claudication Chronic bilateral low back pain with bilateral sciatica Lumbar radiculopathy Thoracic or lumbosacral neuritis or radiculitis, unspecified [facility]* Diagnosis Anemia, unspecified type [facility]* Diagnosis Sepsis, due to unspecified organism, unspecified whether acute organ dysfunction present (HCC)- Primary Essential hypertension Unspecified essential hypertension Other hyperlipidemia Urinary tract infection without hematuria, site unspecified documented in this encounter [place] note* Diagnosis Hyperglycemia- Primary Other abnormal glucose documented in this encounter [place] note* Diagnosis Chronic bilateral low back pain with bilateral sciatica- Primary Coronary artery disease involving mcgrath coronary artery of mcgrath heart without angina pectoris Paroxysmal atrial fibrillation (HCC) Atrial fibrillation Essential hypertension Unspecified essential hypertension History of atrial fibrillation Personal history of other diseases of circulatory system documented in this encounter [place] note* Diagnosis Sepsis, due to unspecified organism, unspecified whether acute organ dysfunction present (HCC)- Primary Chronic bilateral low back pain with bilateral sciatica documented in this encounter [facility] course Narrative No data available for this section [facility] Note* PREET MARTINEZ MD: SIGN, VERIFY Event Display: Ablation RF-CARTO - CV Authored Date: [facility] Reason for referral (narrative)* Diagnostic Procedure Only (Routine) - Pending Review Specialty Diagnoses / Procedures Referred By Savannah tena Referred To Contact [facility] Diagnoses Encounter for screening mammogram for breast cancer Procedures GILBERT SCREENING SCREENING MAMMOGRAPHY BI 2-[place] [address] [place] [id number] [facility] [address] [place] [phone] Referral ID Status Reason Start Date Expiration Date Visits Requested Visits Authorized [id number] Pending Review Auto-Generat ed Referral 01/24/2022 02/23/2023 1 1 [facility] Diagnostic Procedure Only (Routine) - Closed Specialty Diagnoses / Procedures Referred By Savannah tena Referred To Contact US IMAGING Diagnoses Abdominal aortic aneurysm (AAA) without rupture Procedures US DOPPLER AORTA DUP-SCAN ARTL ANA ABDL/PEL/SCROT&/RPR ORGN LMT Bal Denise MD [address] [place] [address] [facility] Referral ID Status Reason Start Date Expiration Date V isits Requested Visits Authorized [id number] Closed Auto-Generate d Referral 05/23/2022 06/22/2023 1 1 * Diagnostic Procedure Only (Routine) - Closed Specialty Diagnoses / Procedures Referred By Contac t Referred To Contact US IMAGING Diagnoses Abdominal aortic aneurysm (AAA) without rupture Procedures US ABD AORTA US RETROPERITONEAL REAL [place] W/[place] [address] [place] [address] [facility] Referral ID Status Reason Start Date Expiration Date V isits Requested Visits Authorized [id number] Closed Auto-Generate d Referral 05/23/2022 06/22/2023 1 1 [facility] for referral (narrative)* Diagnostic Procedure Only (Routine) - Pending Review Specialty Diagnoses / Procedures Referred By Contac t Referred To Contact XR IMAGING Diagnoses Left sided sciatica Procedures XR LUMBAR GENERAL 3V AP/LAT/L5-S1 RADEX SPINE LUMBOSACRAL 2/3 VIEWS Bal Denise MD [address] [place] [address] X[facility] Referral ID Status Reason Start Date Expiration Date Visits Requested Visits Authorized [id number] Pending Review Auto-Generat ed Referral 01/14/2023 02/13/2024 1 1 [facility] for referral (narrative)* Outpatient Procedure (Routine) - Pending Review Specialty Diagnoses / Procedures Referred By Contac t Referred To Contact [facility] Diagnoses Asymptomatic bilateral carotid artery stenosis Procedures US CAROTID ARTERIES [facility] DUPLEX SCAN EXTRACRANIAL ART COMPL BI STUDY Bal Denise MD [address] [place] [address] [facility] [address] [address] Referral ID Status Reason Start Date Expiration Date Visits Requested Visits Authorized [id number] Pending Review Auto-Generat ed Referral 04/12/2023 04/11/2024 1 1 * Outpatient Procedure (Routine) - Closed Specialty Diagnoses / Procedures Referred By Contac t Referred To [facility] Diagnoses Vertigo History of syncope Procedures ECG COMPLETE ECG ROUTINE ECG W/LEAST 12 LDS W/I&R Bal Denise MD [address] [place] [address] [facility] [place] [address] [place] [address] Referral ID Status Reason Start Date Expiration Date V isits Requested Visits Authorized [id number] Closed Auto-Generate d Referral 04/12/2023 04/11/2024 1 1 * Diagnostic Procedure Only (Routine) - Pending Review Specialty Diagnoses / Procedures Referred By Contac t Referred To Contact US IMAGING Diagnoses Abdominal aortic aneurysm (AAA) without rupture, unspecified part (HCC) Procedures US ABD AORTA US RETROPERITONEAL REAL TIME W/IMAGE LIMITED Bal Denise MD [address] [place] [address] [facility] Referral ID Status Reason Start Date Expiration Date Visits Requested Visits Authorized [id number] Pending Review Auto-Generat ed Referral 04/12/2023 05/11/2024 1 1 * Consult, Test, Treat (Routine) - Pending Review Specialty Diagnoses / Procedures Referred By Contac t Referred To Contact Neurology Diagnoses Alzheimer's dementia without behavioral disturbance (HCC) Asymptomatic stenosis of posterior cerebral artery Vertigo History of syncope Procedures CONSULT TO NEUROLOGY OFFICE/OUTPATIENT NEW HIGH MDM 60-74 MINUTES Bal Denise MD [address] [place] [address] Referral ID Status Reason Start Date Expiration Date Visits Requested Visits Authorized [id number] Pending Review PCP Requested Referral 04/12/2023 04/11/2024 1 1 * Consult, Test, Treat (Routine) - Pending Review Specialty Diagnoses / Procedures Referred By Contac t Referred To Contact Cardiology Diagnoses Paroxysmal atrial fibrillation (HCC) Vertigo History of syncope Procedures CONSULT TO CARDIOLOGY OFFICE/OUTPATIENT NEW HIGH MDM 60-74 MINUTES Bal Denise MD [address] [place] [address] Referral ID Status Reason Start Date Expiration Date Visits Requested Visits Authorized [id number] Pending Review PCP Requested Referral 04/12/2023 04/11/2024 1 1 [facility] for referral (narrative)* Outpatient Procedure (Urgent) - Pending Review Specialty Diagnoses / Procedures Referred By Contac t Referred To [facility] Diagnoses Localized edema Procedures US LEG VEIN DVT [facility] DUP-SCAN XTR VEINS COMPLETE BILATERAL STUDY Bal Denise MD [address] [place] [address] [facility] [place] [address] [place] [address] Referral ID Status Reason Start Date Expiration Date Visits Requested Visits Authorized [id number] Pending Review Auto-Generat ed Referral 05/20/2023 05/19/2024 1 1 [facility] for referral (narrative)* Diagnostic Procedure Only (Routine) - Closed Specialty Diagnoses / Procedures Referred By Contac t Referred To Contact XR IMAGING Diagnoses Chronic left hip pain Procedures XR HIP BILATERAL 5V PEL/AP/LAT EACH HIP RADEX HIPS BILATERAL WITH PELVIS MINIMUM 5 VIEWS Yanni Davidson PA-C [address] [place] [address] [place] [id number] Referral ID Status Reason Start Date Expiration Date V isits Requested Visits Authorized [id number] Closed Auto-Generate d Referral 06/18/2023 07/17/2024 1 1 [facility] Diagnostic Procedure Only (Routine) - Closed Specialty Diagnoses / Procedures Referred By Contac t Referred To Contact US IMAGING Diagnoses Abdominal aortic aneurysm (AAA) without rupture, unspecified part (HCC) Procedures US ABD AORTA US RETROPERITONEAL REAL TIME W/IMAGE LIMITED Bal Denise MD [address] [place] [address] [place] [address] Referral ID Status Reason Start Date Expiration Date V isits Requested Visits Authorized [id number] Closed Auto-Generate d Referral 04/12/2023 05/11/2024 1 1 [facility] Summary Purpose Family History No Family History Records FoundNo Family History Records FoundNo Family History Records FoundNo Family History Records Found Advance Directives No Advanced Directives Records FoundDocuments on File Type Date Recorded Patient Department Head Expl anation Advance Directive(s) 10/12/2021 12:38 PM Advance Directive(s) 11/16/2019 9:53 AM Advance Directive(s) 08/27/2016 1:16 PM Advance Directive(s) 08/24/2016 8:38 AM Documents on File Type Date Recorded Patient Department Head Expl anation Advance Directive(s) 10/12/2021 12:38 PM Advance Directive(s) 11/16/2019 9:53 AM Advance Directive(s) 08/27/2016 1:16 PM Advance Directive(s) 08/24/2016 8:38 AM Reason for Referral Specialty Diagnoses / Procedures Referred By Contac t Referred To Contact Cardiology Diagnoses Lightheadedness History of coronary artery disease Procedures CONSULT TO CARDIOLOGY OFFICE/OUTPATIENT NEW HIGH MDM 60-74 MINUTES Bal Morales Jr., MD [address] [facility] [address] [place] [address] Referral ID Status Reason Start Date Expiration Date Visits Requested Visits Authorized [id number] Pending Review PCP Requested Referral 12/08/2021 12/08/2022 1 1 Specialty Diagnoses / Procedures Referred By Contac t Referred To Contact MR IMAGING Diagnoses Vertigo Procedures MRA CAROTID WO IVCON MRA, NECK; W/O CONTRAST Bal Morales Jr., MD [address] [place] [address] Mr Imaging Referral ID Status Reason Start Date Expiration Date Visits Requested Visits Authorized [id number] Authorized Auto-Generat ed Referral 12/08/2021 01/07/2023 1 1 Specialty Diagnoses / Procedures Referred By Contac t Referred To Contact MR IMAGING Diagnoses Vertigo Procedures MRA BRAIN WO IVCON MRA, HEAD W/O CONTRAST Bal Morales Jr., MD [address] [place] [address] Mr Imaging Referral ID Status Reason Start Date Expiration Date Visits Requested Visits Authorized [id number] Authorized Auto-Generat ed Referral 12/08/2021 01/07/2023 1 1 Specialty Diagnoses / Procedures Referred By Contac t Referred To Contact MR IMAGING Diagnoses Vertigo Procedures MRI BRAIN WO IVCON MRI BRAIN BRAIN STEM W/O CONTRAST MATERIAL Bal Morales Jr., MD [address] [place] [address] Mr Imaging Referral ID Status Reason Start Date Expiration Date Visits Requested Visits Authorized [id number] Authorized Auto-Generat ed Referral 12/08/2021 01/07/2023 1 1 Specialty Diagnoses / Procedures Referred By Contac t Referred To Contact Neurology Diagnoses Pseudoseizures (HCC) Procedures CONSULT TO NEUROLOGY OFFICE/OUTPATIENT NEW HIGH MDM 60-74 MINUTES Melvina Johnson, HIDE SHAKER.HERPETOLOGIST [address] [place] [address] Referral ID Status Reason Start Date Expiration Date Visits Requested Visits Authorized [id number] Pending Review PCP Requested Referral 01/15/2022 01/15/2023 1 1 Specialty Diagnoses / Procedures Referred By Contac t Referred To Contact [facility] Diagnoses Memory problem Procedures HOME SLEEP APNEA TEST (HSAT) SLEEP STD AIRFLOW HRT RATE&O2 SAT EFFORT UNATT Melvina Johnson, KVNG.HERPETOLOGIST [address] [place] [address] [facility] [place] [address] [place] [address] Referral ID Status Reason Start Date Expiration Date Visits Requested Visits Authorized [id number] Pending Review Auto-Generat ed Referral 01/15/2022 01/15/2023 1 1 Specialty Diagnoses / Procedures Referred By Contac t Referred To Contact Gastroenterology Diagnoses Acute gastric ulcer without hemorrhage or perforation Procedures CONSULT TO GASTROENTEROLOGY Bal Denise MD [address] [place] [address] Referral ID Status Reason Start Date Expiration Date Visits Requested Visits Authorized [id number] Ref Not Required PCP Requested Referral 03/19/2022 03/19/2023 1 1 Specialty Diagnoses / Procedures Referred By Contac t Referred To Contact Cardiology Diagnoses Paroxysmal atrial fibrillation (HCC) Procedures CONSULT TO CARDIOLOGY Bal Denise MD [address] [place] [address] Referral ID Status Reason Start Date Expiration Date Visits Requested Visits Authorized [id number] Ref Not Required PCP Requested Referral 03/19/2022 03/19/2023 1 1 Specialty Diagnoses / Procedures Referred By Contac t Referred To Contact Diagnoses Hearing loss, unspecified hearing loss type, unspecified laterality Procedures HEARING TEST/AUDIOGRAM COMPRE AUDIOMETRY THRESHOLD EVAL SP RECOGNIJ Ana Tucker PA-C [address] [place] [address] [facility] [address] [place] [address] Referral ID Status Reason Start Date Expiration Date Visits Requested Visits Authorized [id number] Authorized Auto-Generat ed Referral 04/30/2023 07/29/2023 1 1 Specialty Diagnoses / Procedures Referred By Contac t Referred To Contact MR IMAGING Diagnoses Vertigo Memory loss Procedures MRI BRAIN WO IVCON MRI BRAIN BRAIN STEM W/O CONTRAST MATERIAL Ana Tucker PA-C [address] [place] [address] [place] [id number] Referral ID Status Reason Start Date Expiration Date Visits Requested Visits Authorized [id number] Authorized Auto-Generat ed Referral 04/30/2023 05/29/2024 1 1 Specialty Diagnoses / Procedures Referred By Contac t Referred To Contact MR IMAGING Diagnoses Alzheimer's dementia without behavioral disturbance (HCC) Procedures MRI 3D POST PROCESSING 3D RENDERING W/INTERP&POSTPROC DIFF WORK STATION Ana Tucker PA-C [address] [place] [address] [place] [address] Referral ID Status Reason Start Date Expiration Date V isits Requested Visits Authorized [id number] Closed Auto-Generate d Referral 07/05/2023 08/03/2024 1 1 Specialty Diagnoses / Procedures Referred By Contac t Referred To Contact Pain Management Diagnoses Chronic bilateral low back pain with bilateral sciatica Procedures CONSULT TO PAIN MGT OFFICE/OUTPATIENT [facility] MDM 60-74 MINUTES Yanni Davidson PA-C [address] [place] [address] Referral ID Status Reason Start Date Expiration Date Visits Requested Visits Authorized [id number] Pending Review PCP Requested Referral 07/11/2023 07/10/2024 1 1 Specialty Diagnoses / Procedures Referred By Contac t Referred To Contact XR IMAGING Diagnoses Chronic bilateral low back pain with bilateral sciatica Procedures XR LUMBAR GENERAL 3V AP/LAT/L5-S1 RADEX SPINE LUMBOSACRAL 2/3 VIEWS Yanni Davidson PA-C [address] [place] [address] [place] [address] Referral ID Status Reason Start Date Expiration Date V isits Requested Visits Authorized [id number] Closed Auto-Generate d Referral 07/11/2023 08/09/2024 1 1 Specialty Diagnoses / Procedures Referred By Contac t Referred To Contact Diagnoses Chronic bilateral low back pain with bilateral sciatica Yanni Davidson PA-C [address] [place] [address] Referral ID Status Reason Start Date Expiration Date Visits Re quested Visits Authorized [id number] Closed 1 1 Specialty Diagnoses / Procedures Referred By Contac t Referred To Contact MR IMAGING Diagnoses Spinal stenosis of lumbar region with neurogenic claudication Procedures MRI LUMBAR SPINE WO IVCON MRI SPINAL CANAL LUMBAR W/O CONTRAST MATERIAL Edwina Orosco APRN.HERPETOLOGIST [address] [place] [address] [place] [id number] Referral ID Status Reason Start Date Expiration Date Visits Requested Visits Authorized [id number] Authorized Auto-Generat ed Referral 3 08/24/2024 1 1 Additional Source Comments INFORMATION SOURCE (unrecogn ized section and content) DATE CREATED AUTHOR AUTHOR'S ORGANIZ ATION 03/30/2022 [facility] ([place]) DATE CREATED AUTHOR AUTHOR'S ORGANIZ ATION 09/21/[address] [facility] DATE CREATED AUTHOR AUTHOR'S ORGANIZ ATION 09/28/2023 [facility] Source Comments (unrecognize d section and content) In the event this informatio n is protected by the Federal Confidentiality of Alcohol and Drug Abuse Patient Records regulations: The Federal rules restrict any use of the information to criminally investigate or prosecute any alcohol or drug abuse patient.[facility] the event this information is protected by the Federal Confidentiality of Alcohol and Drug Abuse Patient Records regulations: The Federal rules restrict any use of the information to criminally investigate or prosecute any alcohol or drug abuse patient.[facility] HospitalIn the event this information is protected by the Federal Confidentiality of Alcohol and Drug Abuse Patient Records regulations: The Federal rules restrict any use of the information to criminally investigate or prosecute any alcohol or drug abuse patient.[facility] HospitalIn the event this information is protected by the Federal Confidentiality of Alcohol and Drug Abuse Patient Records regulations: The Federal rules restrict any use of the information to criminally investigate or prosecute any alcohol or drug abuse patient.[facility] HospitalIn the event this information is protected by the Federal Confidentiality of Alcohol and Drug Abuse Patient Records regulations: The Federal rules restrict any use of the information to criminally investigate or prosecute any alcohol or drug abuse patient.[facility] HospitalIn the event this information is protected by the Federal Confidentiality of Alcohol and Drug Abuse Patient Records regulations: The Federal rules restrict any use of the information to criminally investigate or prosecute any alcohol or drug abuse patient.[facility] HospitalIn the event this information is protected by the Federal Confidentiality of Alcohol and Drug Abuse Patient Records regulations: The Federal rules restrict any use of the information to criminally investigate or prosecute any alcohol or drug abuse patient.[facility] HospitalIn the event this information is protected by the Federal Confidentiality of Alcohol and Drug Abuse Patient Records regulations: The Federal rules restrict any use of the information to criminally investigate or prosecute any alcohol or drug abuse patient.[facility] HospitalIn the event this information is protected by the Federal Confidentiality of Alcohol and Drug Abuse Patient Records regulations: The Federal rules restrict any use of the information to criminally investigate or prosecute any alcohol or drug abuse patient.[facility] HospitalIn the event this information is protected by the Federal Confidentiality of Alcohol and Drug Abuse Patient Records regulations: The Federal rules restrict any use of the information to criminally investigate or prosecute any alcohol or drug abuse patient.[facility] HospitalIn the event this information is protected by the Federal Confidentiality of Alcohol and Drug Abuse Patient Records regulations: The Federal rules restrict any use of the information to criminally investigate or prosecute any alcohol or drug abuse patient.[facility] HospitalIn the event this information is protected by the Federal Confidentiality of Alcohol and Drug Abuse Patient Records regulations: The Federal rules restrict any use of the information to criminally investigate or prosecute any alcohol or drug abuse patient.[facility] HospitalIn the event this information is protected by the Federal Confidentiality of Alcohol and Drug Abuse Patient Records regulations: The Federal rules restrict any use of the information to criminally investigate or prosecute any alcohol or drug abuse patient.[facility] HospitalIn the event this information is protected by the Federal Confidentiality of Alcohol and Drug Abuse Patient Records regulations: The Federal rules restrict any use of the information to criminally investigate or prosecute any alcohol or drug abuse patient.[facility] HospitalIn the event this information is protected by the Federal Confidentiality of Alcohol and Drug Abuse Patient Records regulations: The Federal rules restrict any use of the information to criminally investigate or prosecute any alcohol or drug abuse patient.[facility] HospitalIn the event this information is protected by the Federal Confidentiality of Alcohol and Drug Abuse Patient Records regulations: The Federal rules restrict any use of the information to criminally investigate or prosecute any alcohol or drug abuse patient.[facility] HospitalIn the event this information is protected by the Federal Confidentiality of Alcohol and Drug Abuse Patient Records regulations: The Federal rules restrict any use of the information to criminally investigate or prosecute any alcohol or drug abuse patient.[facility] HospitalIn the event this information is protected by the Federal Confidentiality of Alcohol and Drug Abuse Patient Records regulations: The Federal rules restrict any use of the information to criminally investigate or prosecute any alcohol or drug abuse patient.[facility] HospitalIn the event this information is protected by the Federal Confidentiality of Alcohol and Drug Abuse Patient Records regulations: The Federal rules restrict any use of the information to criminally investigate or prosecute any alcohol or drug abuse patient.[facility] HospitalIn the event this information is protected by the Federal Confidentiality of Alcohol and Drug Abuse Patient Records regulations: The Federal rules restrict any use of the information to criminally investigate or prosecute any alcohol or drug abuse patient.[facility] HospitalIn the event this information is protected by the Federal Confidentiality of Alcohol and Drug Abuse Patient Records regulations: The Federal rules restrict any use of the information to criminally investigate or prosecute any alcohol or drug abuse patient.[facility] HospitalIn the event this information is protected by the Federal Confidentiality of Alcohol and Drug Abuse Patient Records regulations: The Federal rules restrict any use of the information to criminally investigate or prosecute any alcohol or drug abuse patient.[facility] HospitalIn the event this information is protected by the Federal Confidentiality of Alcohol and Drug Abuse Patient Records regulations: The Federal rules restrict any use of the information to criminally investigate or prosecute any alcohol or drug abuse patient.[facility] HospitalIn the event this information is protected by the Federal Confidentiality of Alcohol and Drug Abuse Patient Records regulations: The Federal rules restrict any use of the information to criminally investigate or prosecute any alcohol or drug abuse patient.[facility] HospitalIn the event this information is protected by the Federal Confidentiality of Alcohol and Drug Abuse Patient Records regulations: The Federal rules restrict any use of the information to criminally investigate or prosecute any alcohol or drug abuse patient.[facility] HospitalIn the event this information is protected by the Federal Confidentiality of Alcohol and Drug Abuse Patient Records regulations: The Federal rules restrict any use of the information to criminally investigate or prosecute any alcohol or drug abuse patient.[facility] HospitalIn the event this information is protected by the Federal Confidentiality of Alcohol and Drug Abuse Patient Records regulations: The Federal rules restrict any use of the information to criminally investigate or prosecute any alcohol or drug abuse patient.[facility] HospitalIn the event this information is protected by the Federal Confidentiality of Alcohol and Drug Abuse Patient Records regulations: The Federal rules restrict any use of the information to criminally investigate or prosecute any alcohol or drug abuse patient.[facility] HospitalIn the event this information is protected by the Federal Confidentiality of Alcohol and Drug Abuse Patient Records regulations: The Federal rules restrict any use of the information to criminally investigate or prosecute any alcohol or drug abuse patient.[facility] HospitalIn the event this information is protected by the Federal Confidentiality of Alcohol and Drug Abuse Patient Records regulations: The Federal rules restrict any use of the information to criminally investigate or prosecute any alcohol or drug abuse patient.[facility] HospitalIn the event this information is protected by the Federal Confidentiality of Alcohol and Drug Abuse Patient Records regulations: The Federal rules restrict any use of the information to criminally investigate or prosecute any alcohol or drug abuse patient.[facility] HospitalIn the event this information is protected by the Federal Confidentiality of Alcohol and Drug Abuse Patient Records regulations: The Federal rules restrict any use of the information to criminally investigate or prosecute any alcohol or drug abuse patient.[facility] HospitalIn the event this information is protected by the Federal Confidentiality of Alcohol and Drug Abuse Patient Records regulations: The Federal rules restrict any use of the information to criminally investigate or prosecute any alcohol or drug abuse patient.[facility] HospitalIn the event this information is protected by the Federal Confidentiality of Alcohol and Drug Abuse Patient Records regulations: The Federal rules restrict any use of the information to criminally investigate or prosecute any alcohol or drug abuse patient.[facility] HospitalIn the event this information is protected by the Federal Confidentiality of Alcohol and Drug Abuse Patient Records regulations: The Federal rules restrict any use of the information to criminally investigate or prosecute any alcohol or drug abuse patient.[facility] HospitalIn the event this information is protected by the Federal Confidentiality of Alcohol and Drug Abuse Patient Records regulations: The Federal rules restrict any use of the information to criminally investigate or prosecute any alcohol or drug abuse patient.[facility] HospitalIn the event this information is protected by the Federal Confidentiality of Alcohol and Drug Abuse Patient Records regulations: The Federal rules restrict any use of the information to criminally investigate or prosecute any alcohol or drug abuse patient.[facility] HospitalIn the event this information is protected by the Federal Confidentiality of Alcohol and Drug Abuse Patient Records regulations: The Federal rules restrict any use of the information to criminally investigate or prosecute any alcohol or drug abuse patient.[facility] HospitalIn the event this information is protected by the Federal Confidentiality of Alcohol and Drug Abuse Patient Records regulations: The Federal rules restrict any use of the information to criminally investigate or prosecute any alcohol or drug abuse patient.[facility] HospitalIn the event this information is protected by the Federal Confidentiality of Alcohol and Drug Abuse Patient Records regulations: The Federal rules restrict any use of the information to criminally investigate or prosecute any alcohol or drug abuse patient.[facility] HospitalIn the event this information is protected by the Federal Confidentiality of Alcohol and Drug Abuse Patient Records regulations: The Federal rules restrict any use of the information to criminally investigate or prosecute any alcohol or drug abuse patient.[facility] HospitalIn the event this information is protected by the Federal Confidentiality of Alcohol and Drug Abuse Patient Records regulations: The Federal rules restrict any use of the information to criminally investigate or prosecute any alcohol or drug abuse patient.[facility] HospitalIn the event this information is protected by the Federal Confidentiality of Alcohol and Drug Abuse Patient Records regulations: The Federal rules restrict any use of the information to criminally investigate or prosecute any alcohol or drug abuse patient.[facility] HospitalIn the event this information is protected by the Federal Confidentiality of Alcohol and Drug Abuse Patient Records regulations: The Federal rules restrict any use of the information to criminally investigate or prosecute any alcohol or drug abuse patient.[facility] HospitalIn the event this information is protected by the Federal Confidentiality of Alcohol and Drug Abuse Patient Records regulations: The Federal rules restrict any use of the information to criminally investigate or prosecute any alcohol or drug abuse patient.[facility] HospitalIn the event this information is protected by the Federal Confidentiality of Alcohol and Drug Abuse Patient Records regulations: The Federal rules restrict any use of the information to criminally investigate or prosecute any alcohol or drug abuse patient.[facility] HospitalIn the event this information is protected by the Federal Confidentiality of Alcohol and Drug Abuse Patient Records regulations: The Federal rules restrict any use of the information to criminally investigate or prosecute any alcohol or drug abuse patient.[facility] HospitalIn the event this information is protected by the Federal Confidentiality of Alcohol and Drug Abuse Patient Records regulations: The Federal rules restrict any use of the information to criminally investigate or prosecute any alcohol or drug abuse patient.[facility] HospitalIn the event this information is protected by the Federal Confidentiality of Alcohol and Drug Abuse Patient Records regulations: The Federal rules restrict any use of the information to criminally investigate or prosecute any alcohol or drug abuse patient.[facility] HospitalIn the event this information is protected by the Federal Confidentiality of Alcohol and Drug Abuse Patient Records regulations: The Federal rules restrict any use of the information to criminally investigate or prosecute any alcohol or drug abuse patient.[facility] HospitalIn the event this information is protected by the Federal Confidentiality of Alcohol and Drug Abuse Patient Records regulations: The Federal rules restrict any use of the information to criminally investigate or prosecute any alcohol or drug abuse patient.[facility] HospitalIn the event this information is protected by the Federal Confidentiality of Alcohol and Drug Abuse Patient Records regulations: The Federal rules restrict any use of the information to criminally investigate or prosecute any alcohol or drug abuse patient.[facility] HospitalIn the event this information is protected by the Federal Confidentiality of Alcohol and Drug Abuse Patient Records regulations: The Federal rules restrict any use of the information to criminally investigate or prosecute any alcohol or drug abuse patient.[facility] HospitalIn the event this information is protected by the Federal Confidentiality of Alcohol and Drug Abuse Patient Records regulations: The Federal rules restrict any use of the information to criminally investigate or prosecute any alcohol or drug abuse patient.[facility] HospitalIn the event this information is protected by the Federal Confidentiality of Alcohol and Drug Abuse Patient Records regulations: The Federal rules restrict any use of the information to criminally investigate or prosecute any alcohol or drug abuse patient.[facility] HospitalIn the event this information is protected by the Federal Confidentiality of Alcohol and Drug Abuse Patient Records regulations: The Federal rules restrict any use of the information to criminally investigate or prosecute any alcohol or drug abuse patient.[facility] HospitalIn the event this information is protected by the Federal Confidentiality of Alcohol and Drug Abuse Patient Records regulations: The Federal rules restrict any use of the information to criminally investigate or prosecute any alcohol or drug abuse patient.[facility] HospitalIn the event this information is protected by the Federal Confidentiality of Alcohol and Drug Abuse Patient Records regulations: The Federal rules restrict any use of the information to criminally investigate or prosecute any alcohol or drug abuse patient.[facility] HospitalIn the event this information is protected by the Federal Confidentiality of Alcohol and Drug Abuse Patient Records regulations: The Federal rules restrict any use of the information to criminally investigate or prosecute any alcohol or drug abuse patient.[facility] HospitalIn the event this information is protected by the Federal Confidentiality of Alcohol and Drug Abuse Patient Records regulations: The Federal rules restrict any use of the information to criminally investigate or prosecute any alcohol or drug abuse patient.[facility] HospitalIn the event this information is protected by the Federal Confidentiality of Alcohol and Drug Abuse Patient Records regulations: The Federal rules restrict any use of the information to criminally investigate or prosecute any alcohol or drug abuse patient.[facility] HospitalIn the event this information is protected by the Federal Confidentiality of Alcohol and Drug Abuse Patient Records regulations: The Federal rules restrict any use of the information to criminally investigate or prosecute any alcohol or drug abuse patient.[facility] HospitalIn the event this information is protected by the Federal Confidentiality of Alcohol and Drug Abuse Patient Records regulations: The Federal rules restrict any use of the information to criminally investigate or prosecute any alcohol or drug abuse patient.[facility] HospitalIn the event this information is protected by the Federal Confidentiality of Alcohol and Drug Abuse Patient Records regulations: The Federal rules restrict any use of the information to criminally investigate or prosecute any alcohol or drug abuse patient.[facility] HospitalIn the event this information is protected by the Federal Confidentiality of Alcohol and Drug Abuse Patient Records regulations: The Federal rules restrict any use of the information to criminally investigate or prosecute any alcohol or drug abuse patient.[facility] HospitalIn the event this information is protected by the Federal Confidentiality of Alcohol and Drug Abuse Patient Records regulations: The Federal rules restrict any use of the information to criminally investigate or prosecute any alcohol or drug abuse patient.[facility] HospitalIn the event this information is protected by the Federal Confidentiality of Alcohol and Drug Abuse Patient Records regulations: The Federal rules restrict any use of the information to criminally investigate or prosecute any alcohol or drug abuse patient.[facility] HospitalIn the event this information is protected by the Federal Confidentiality of Alcohol and Drug Abuse Patient Records regulations: The Federal rules restrict any use of the information to criminally investigate or prosecute any alcohol or drug abuse patient.[facility] HospitalIn the event this information is protected by the Federal Confidentiality of Alcohol and Drug Abuse Patient Records regulations: The Federal rules restrict any use of the information to criminally investigate or prosecute any alcohol or drug abuse patient.[facility] HospitalIn the event this information is protected by the Federal Confidentiality of Alcohol and Drug Abuse Patient Records regulations: The Federal rules restrict any use of the information to criminally investigate or prosecute any alcohol or drug abuse patient.[facility] HospitalIn the event this information is protected by the Federal Confidentiality of Alcohol and Drug Abuse Patient Records regulations: The Federal rules restrict any use of the information to criminally investigate or prosecute any alcohol or drug abuse patient.[facility] HospitalIn the event this information is protected by the Federal Confidentiality of Alcohol and Drug Abuse Patient Records regulations: The Federal rules restrict any use of the information to criminally investigate or prosecute any alcohol or drug abuse patient.[facility] HospitalIn the event this information is protected by the Federal Confidentiality of Alcohol and Drug Abuse Patient Records regulations: The Federal rules restrict any use of the information to criminally investigate or prosecute any alcohol or drug abuse patient.[facility] HospitalIn the event this information is protected by the Federal Confidentiality of Alcohol and Drug Abuse Patient Records regulations: The Federal rules restrict any use of the information to criminally investigate or prosecute any alcohol or drug abuse patient.[facility] HospitalIn the event this information is protected by the Federal Confidentiality of Alcohol and Drug Abuse Patient Records regulations: The Federal rules restrict any use of the information to criminally investigate or prosecute any alcohol or drug abuse patient.[facility] HospitalIn the event this information is protected by the Federal Confidentiality of Alcohol and Drug Abuse Patient Records regulations: The Federal rules restrict any use of the information to criminally investigate or prosecute any alcohol or drug abuse patient.[facility] HospitalIn the event this information is protected by the Federal Confidentiality of Alcohol and Drug Abuse Patient Records regulations: The Federal rules restrict any use of the information to criminally investigate or prosecute any alcohol or drug abuse patient.[facility] HospitalIn the event this information is protected by the Federal Confidentiality of Alcohol and Drug Abuse Patient Records regulations: The Federal rules restrict any use of the information to criminally investigate or prosecute any alcohol or drug abuse patient.[facility] HospitalIn the event this information is protected by the Federal Confidentiality of Alcohol and Drug Abuse Patient Records regulations: The Federal rules restrict any use of the information to criminally investigate or prosecute any alcohol or drug abuse patient.[facility] HospitalIn the event this information is protected by the Federal Confidentiality of Alcohol and Drug Abuse Patient Records regulations: The Federal rules restrict any use of the information to criminally investigate or prosecute any alcohol or drug abuse patient.[facility] HospitalIn the event this information is protected by the Federal Confidentiality of Alcohol and Drug Abuse Patient Records regulations: The Federal rules restrict any use of the information to criminally investigate or prosecute any alcohol or drug abuse patient.[facility] HospitalIn the event this information is protected by the Federal Confidentiality of Alcohol and Drug Abuse Patient Records regulations: The Federal rules restrict any use of the information to criminally investigate or prosecute any alcohol or drug abuse patient.[facility] HospitalIn the event this information is protected by the Federal Confidentiality of Alcohol and Drug Abuse Patient Records regulations: The Federal rules restrict any use of the information to criminally investigate or prosecute any alcohol or drug abuse patient.[facility] HospitalIn the event this information is protected by the Federal Confidentiality of Alcohol and Drug Abuse Patient Records regulations: The Federal rules restrict any use of the information to criminally investigate or prosecute any alcohol or drug abuse patient.[facility] HospitalIn the event this information is protected by the Federal Confidentiality of Alcohol and Drug Abuse Patient Records regulations: The Federal rules restrict any use of the information to criminally investigate or prosecute any alcohol or drug abuse patient.[facility] HospitalIn the event this information is protected by the Federal Confidentiality of Alcohol and Drug Abuse Patient Records regulations: The Federal rules restrict any use of the information to criminally investigate or prosecute any alcohol or drug abuse patient.[facility] HospitalIn the event this information is protected by the Federal Confidentiality of Alcohol and Drug Abuse Patient Records regulations: The Federal rules restrict any use of the information to criminally investigate or prosecute any alcohol or drug abuse patient.[facility] HospitalIn the event this information is protected by the Federal Confidentiality of Alcohol and Drug Abuse Patient Records regulations: The Federal rules restrict any use of the information to criminally investigate or prosecute any alcohol or drug abuse patient.[facility] HospitalIn the event this information is protected by the Federal Confidentiality of Alcohol and Drug Abuse Patient Records regulations: The Federal rules restrict any use of the information to criminally investigate or prosecute any alcohol or drug abuse patient.[facility] HospitalIn the event this information is protected by the Federal Confidentiality of Alcohol and Drug Abuse Patient Records regulations: The Federal rules restrict any use of the information to criminally investigate or prosecute any alcohol or drug abuse patient.[facility] HospitalIn the event this information is protected by the Federal Confidentiality of Alcohol and Drug Abuse Patient Records regulations: The Federal rules restrict any use of the information to criminally investigate or prosecute any alcohol or drug abuse patient.[facility] Reason for Visit (unrecogniz ed section and content) Specialty Diagnoses / Procedures Referred By Savannah tena Referred To Contact [facility] Diagnoses Left sided sciatica Procedures CONSULT TO PHYSICAL THERAPY PHYSICAL THERAPY EVALUATION HIGH COMPLEX 45 MINS THERAPEUTIC EXERCISES RE, EA 15 MIN. Bal Denise MD [address] [place] [address] [facility] [place] [address] [place] [address] Referral ID Status Reason Start Date Expiration Date Visits Requested Visits Authorized [id number] Authorized Auto-Generat ed Referral 09/09/2022 09/08/2023 20 20 Reason Comments Patient Update Reason Comments New Neur Headache Consult Vertigo and headaches Reason Comments Appointment staff left VM inform ing pt with cardiology consult placed by Dr. Morales Reason Comments Opened In Error Reason Comments Vertigo Reason Comments OV follow up rescheduled Reason Comments Refill Request Reason Comments Right leg pain Reason Onset Date Comments chronic disease management 03/14/2022 insig ht enrollment Reason Comments ER F/U [facility] 7/-cellulitis Reason Comments Results Reason Comments Medication Problem Reason Comments Patient Update Medication Request Reason Onset Date Comments Refill Request 04/17/2022 Reason Comments Direction Home requesting records Reason Onset Date Comments community monitoring outreach 05/04/2022 In Sight enrollment & [facility] [phone] Reason Onset Date Comments Community Monitoring Outreach 05/09/2022 in Sight enrollment with [facility] introduction Reason Comments Escalation of Care Reason Comments Head Injury Reason Comments Radiology US Specialty Diagnoses / Procedures Referred By Savannah t Referred To Contact [facility] Diagnoses Abdominal aortic aneurysm (AAA) without rupture Procedures US ABD AORTA US RETROPERITONEAL REAL TIME W/IMAGE LIMITED Bal Denise MD [address] [place] [address] [facility] Referral ID Status Reason Start Date Expiration Date V isits Requested Visits Authorized [id number] Closed Auto-Generate d Referral 05/23/2022 06/22/2023 1 1 Reason Onset Date Comments community monitoring outreach 05/29/2022 in Sight escalation follow up Reason Onset Date Comments Refill Request 06/06/2022 Reason Comments Trauma Cut right leg on bed railing x 1 day Reason Comments Follow Up UC right lower leg c /o burning and redness is bigger now Reason Onset Date Comments Community Monitoring Outreach 06/20/2022 in Sight check in call deferred Reason Comments Follow Up Reason Comments Recheck 1 week follow up- R lower leg Reason Comments Recheck 1 week follow up; c/ o burning sensation Reason Comments Consult Reason Onset Date Comments Refill Request 08/27/2022 Reason Onset Date Comments [facility] 08/28/2022 Check in call Reason Comments Patient Update Appointment Reason Onset Date Comments Refill Request 09/24/2022 Reason Onset Date Comments [facility] 09/25/2022 Check in call Reason Comments Cough Reason Onset Date Comments [facility] 10/22/2022 Check in call Reason Onset Date Comments Refill Request 11/16/2022 Reason Onset Date Comments Population Health Navigation Outreach 12/11/2022 [place] [facility] Reason Onset Date Comments [facility] 12/14/2022 Check in call Reason Comments Pain Reason Onset Date Comments Refill Request 02/13/2023 Reason Onset Date Comments Refill Request 02/22/2023 Reason Onset Date Comments Refill Request 03/04/2023 Reason Onset Date Comments [facility] 03/19/2023 Check in call Reason Comments Physical Therapy Reason Comments Follow Up Reason Comments Medication Request Reason Onset Date Comments [facility] 04/24/2023 Check in call Reason Comments New Patient Evaluation Specialty Diagnoses / Procedures Referred By Savannah tena Referred To Contact Neurology Diagnoses Alzheimer's dementia without behavioral disturbance (HCC) Asymptomatic stenosis of posterior cerebral artery Vertigo History of syncope Procedures CONSULT TO NEUROLOGY OFFICE/OUTPATIENT NEW HIGH [facility] 60-74 MINUTES Bal Denise MD [address] [place] [address] Referral ID Status Reason Start Date Expiration Date Visits Requested Visits Authorized [id number] Pending Review PCP Requested Referral 04/12/2023 04/11/2024 1 1 Reason Comments Edema Patient reports redn ess and swelling to left LE. Reports painful the entire time as well making ambulating difficult as pain radiating into foot. Reason Comments Patient Question Reason Onset Date Comments [facility] 05/20/2023 Deferred Reason Comments Edema Reason Onset Date Comments [facility] 06/14/2023 Outreach deferre d Reason Comments Follow Up Cellulitis Reason Comments Follow Up Left leg pain. Reason Comments Leg pain Reason Comments Rx clarification Reason Onset Date Comments CDM 07/08/2023 Check in call Reason Comments Leg Pain left ER F/U Dog scratch to right leg Reason Comments Radiology US Specialty Diagnoses / Procedures Referred By Contac t Referred To Contact US IMAGING Diagnoses Abdominal aortic aneurysm (AAA) without rupture, unspecified part (HCC) Procedures US ABD AORTA US RETROPERITONEAL REAL TIME W/IMAGE LIMITED Bal Denise MD [address] [place] [address] [place] [address] Referral ID Status Reason Start Date Expiration Date V isits Requested Visits Authorized [id number] Closed Auto-Generate d Referral 04/12/2023 05/11/2024 1 1 Reason Comments Hospital F/U Reason Comments Medication Request Reason Comments New Patient New Patient referred by Vimal Davidson Hip Pain Left Hip Leg Pain Left Pain (foot) Left Specialty Diagnoses / Procedures Referred By Contac t Referred To Contact Pain Management Diagnoses Chronic bilateral low back pain with bilateral sciatica Procedures CONSULT TO PAIN MGT OFFICE/OUTPATIENT NEW HIGH MDM 60-74 MINUTES Yanni Davidson PA-C [address] [place] [address] Referral ID Status Reason Start Date Expiration Date Visits Requested Visits Authorized [id number] Pending Review PCP Requested Referral 07/11/2023 07/10/2024 1 1 Reason Onset Date Comments Refill Request 07/29/2023 Reason Onset Date Comments Refill Request 07/01/2023 Refill Request 07/30/2023 Reason Comments Hospital F/U Discharged on 07/29 from [facility] for sepsis r/t UTI Reason Onset Date Comments cdm 08/07/2023 Telephonic outre ach Reason Onset Date Comments Transition Of Care 07/18/2023 [facility] 07/17/23 Care Teams (unrecognized sec tion and content) Cloth Weigher Relationship Specialty Start Date End Date Bal Denise MD [address] [place] [address] PCP - General Family Practice 12/18/17 Jeffery Funk [address] [address] Cardiology 07/02/18 Picher Neurology Physician Neurology 07/02/18 [facility] 07/02/18 Cloth Weigher Relationship Specialty Start Date End Date Bal Denise MD [address] [place] [address] PCP - General Family Practice 12/18/17 Good, Ludlow S [address] [place] [address] Cardiology 07/02/18 Picher Neurology Physician Neurology 07/02/18 [facility] 07/02/18 Cloth Weigher Relationship Specialty Start Date End Date Bal Denise MD [address] [place] [address] PCP - General Family Practice 12/18/17 Good, Jeffery S [address] [address] Cardiology 07/02/18 Picher Neurology Physician Neurology 07/02/18 [facility] 07/02/18 Cloth Weigher Relationship Specialty Start Date End Date Bal Denise MD [address] [place] [address] PCP - General Family Practice 12/18/17 Good, Jeffery S [address] [address] Cardiology 07/02/18 Picher Neurology Physician Neurology 07/02/18 [facility] 07/02/18 Cloth Weigher Relationship Specialty Start Date End Date Bal Denise MD [address] [facility] [place] [address] PCP - General Family Practice 12/18/17 Good, Ludlow S [address] [place] [address] Cardiology 07/02/18 Picher Neurology Physician Neurology 07/02/18 [facility] 07/02/18 Cloth Weigher Relationship Specialty Start Date End Date Bal Denise MD [address] [place] [address] PCP - General Family Practice 12/18/17 Good, Ludlow S [address] [place] [address] Cardiology 07/02/18 Picher Neurology Physician Neurology 07/02/18 [facility] 07/02/18 Cloth Weigher Relationship Specialty Start Date End Date Bal Denise MD [address] [place] [address] PCP - General Family Practice 12/18/17 Good, Jeffery S [address] [place] [address] Cardiology 07/02/18 Picher Neurology Physician Neurology 07/02/18 [facility] 07/02/18 Cloth Weigher Relationship Specialty Start Date End Date Bal Denise MD [address] [place] [address] PCP - General Family Practice 12/18/17 Good, Jeffery S [address] [place] [address] Cardiology 07/02/18 Picher Neurology Physician Neurology 07/02/18 [facility] 07/02/18 Cloth Weigher Relationship Specialty Start Date End Date Bal Denise MD [address] [facility] [place] [address] PCP - General Family Practice 12/18/17 Good, Jeffery S [address] [place] [address] Cardiology 07/02/18 Picher Neurology Physician Neurology 07/02/18 [facility] 07/02/18 Cloth Weigher Relationship Specialty Start Date End Date Bal Denise MD [address] [place] [address] PCP - General Family Practice 12/18/17 Good, Ludlow S [address] [place] [address] Cardiology 07/02/18 Picher Neurology Physician Neurology 07/02/18 [facility] 07/02/18 Cloth Weigher Relationship Specialty Start Date End Date Bal Denise MD [address] [facility] [place] [address] PCP - General Family Practice 12/18/17 Good, Ludlow S [address] [place] [address] Cardiology 07/02/18 Picher Neurology Physician Neurology 07/02/18 [facility] 07/02/18 Cloth Weigher Relationship Specialty Start Date End Date Bal Denise MD [address] [facility] [place] [address] PCP - General Family Practice 12/18/17 Good, Ludlow S [address] [address] Cardiology 07/02/18 Picher Neurology Physician Neurology 07/02/18 [facility] 07/02/18 Cloth Weigher Relationship Specialty Start Date End Date Bal Denise MD [address], [place] [address]39[address] [phone] PCP - General Family Practice 12/18/17 Good, Jeffery S [address] [address] Cardiology 07/02/18January, Lizette Johnson RN [address] [place], [place] [phone] Application Support Consultant Unspecified 05/09/22 Picher Neurology Physician Neurology 07/02/18 [facility] 07/02/18 Cloth Weigher Relationship Specialty Start Date End Date Bal Denise MD [address], [place] [id number] PCP - General Family Practice 12/18/17 Good, Jeffery S [address] [address] Cardiology 07/02/18January, Lizette Johnson RN [address] [place] [address] Application Support Consultant Unspecified 05/09/22 Picher Neurology Physician Neurology 07/02/18 [facility] 07/02/18 Cloth Weigher Relationship Specialty Start Date End Date Bal Denise MD [address], [place] [id number] [phone] PCP - General Family Practice 12/18/17 Good, Ludlow S [address] [place] [address] Cardiology 07/02/18January, Lizette Johnson RN [address] [place], [place] [phone] Application Support Consultant Unspecified 05/09/22 Picher Neurology Physician Neurology 07/02/18 [facility] 07/02/18 Cloth Weigher Relationship Specialty Start Date End Date Bal Denise MD [address], [place] [address]36[address] PCP - General Family Practice 12/18/17 Good, Jeffery S [address] [place] [address] Cardiology 07/02/18January, Lizette Johnson RN [address] [place], [place] [phone] Application Support Consultant Unspecified 05/09/22 Picher Neurology Physician Neurology 07/02/18 [facility] 07/02/18 Cloth Weigher Relationship Specialty Start Date End Date Bal Denise MD [address] [place] [address] PCP - General Family Medicine 12/18/17 Good, Jeffery S [address] [place] [address] Cardiology 07/02/18January, Lizette Johnson RN [address] [place] [address] Application Support Consultant Unspecified 05/09/22 Picher Neurology Physician Neurology 07/02/18 [facility] 07/02/18 Cloth Weigher Relationship Specialty Start Date End Date Bal Denise MD [address] [facility] [place] [address] PCP - General Family Medicine 12/18/17 Good, Jeffery S [address] [address] Cardiology 07/02/18January, Lizette Johnson RN [address] [place], [place] [phone] Application Support Consultant Unspecified 05/09/22 Picher Neurology Physician Neurology 07/02/18 [facility] 07/02/18 Cloth Weigher Relationship Specialty Start Date End Date Bal Denise MD [address] [place] [address] PCP - General Family Medicine 12/18/17 Good, Jeffery S [address] [address] Cardiology 07/02/18January, Lizette Johnson RN [address] [place], [place] [phone] Application Support Consultant Unspecified 05/09/22 Picher Neurology Physician Neurology 07/02/18 [facility] 07/02/18 Cloth Weigher Relationship Specialty Start Date End Date Bal Denise MD [address] [place] [address] PCP - General Family Medicine 12/18/17 Good, Ludlow S [address] [address] Cardiology 07/02/18January, Lizette Johnson RN [address] [place] [address] Application Support Consultant Unspecified 05/09/22 Picher Neurology Physician Neurology 07/02/18 [facility] 07/02/18 Cloth Weigher Relationship Specialty Start Date End Date Bal Denise MD [address] [facility] [place] [address] PCP - General Family Medicine 12/18/17 Good, Jeffery S [address] [place] [address] Cardiology 07/02/18January, Lizette Johnson RN [address] [place] [address] Application Support Consultant Unspecified 05/09/22 Picher Neurology Physician Neurology 07/02/18 [facility] 07/02/18 Cloth Weigher Relationship Specialty Start Date End Date Bal Denise MD [address] [facility] [place] [address] PCP - General Family Medicine 12/18/17 Good, Jeffery S [address] [place] [address] Cardiology 07/02/18January, Lizette Johnson RN [address] [place] [address] Application Support Consultant Unspecified 05/09/22 Picher Neurology Physician Neurology 07/02/18 [facility] 07/02/18 Cloth Weigher Relationship Specialty Start Date End Date Bal Denise MD [address] [facility] [place] [address] PCP - General Family Medicine 12/18/17 Good, Ludlow S [address] [place] [address] Cardiology 07/02/18January, Lizette Johnson RN [address] [place] [address] Application Support Consultant Unspecified 05/09/22 Picher Neurology Physician Neurology 07/02/18 [facility] 07/02/18 Cloth Weigher Relationship Specialty Start Date End Date Bal Denise MD [address] [place] [address] PCP - General Family Medicine 12/18/17 Good, Jeffery S [address] [place] [address] Cardiology 07/02/18January, Lizette Johnson RN [address] [place] [address] Application Support Consultant Unspecified 05/09/22 Picher Neurology Physician Neurology 07/02/18 [facility] 07/02/18 Cloth Weigher Relationship Specialty Start Date End Date Bal Denise MD [address] [place] [address] PCP - General Family Medicine 12/18/17 Good, Jeffery S [address] [address] [place] [address] Cardiology 07/02/18January, Lizette Johnson RN [address] [place] [address] Application Support Consultant Unspecified 05/09/22 Picher Neurology Physician Neurology 07/02/18 [facility] 07/02/18 Cloth Weigher Relationship Specialty Start Date End Date Bal Denise MD [address] [place] [address] PCP - General Family Medicine 12/18/17 Good, Jeffery S [address] [address] [place] [address] Cardiology 07/02/18January, Lizette Johnson RN [address] [place], [place] [phone] Application Support Consultant Unspecified 05/09/22 Picher Neurology Physician Neurology 07/02/18 [facility] 07/02/18 Cloth Weigher Relationship Specialty Start Date End Date Bal Denise MD [address], [place] 587471 PCP - General Family Medicine 12/18/17 Good, Ludlow S [address] [address] Cardiology 07/02/18January, Lizette Johnson RN [address] [place] [address] Application Support Consultant Unspecified 05/09/22 Picher Neurology Physician Neurology 07/02/18 [facility] 07/02/18 Cloth Weigher Relationship Specialty Start Date End Date Bal Denise MD [address], [place] [address]3441 PCP - General Family Medicine 12/18/17 Good, Jeffery S [address] [address] Cardiology 07/02/18January, Lizette Johnson RN [address] [place] [address] Application Support Consultant Unspecified 05/09/22 Picher Neurology Physician Neurology 07/02/18 [facility] 07/02/18 Cloth Weigher Relationship Specialty Start Date End Date Bal Denise MD [address] [place] [address] PCP - General Family Medicine 12/18/17 Good, Jeffery S [address] [place] [address] Cardiology 07/02/18January, Lizette Johnson RN [address] [place], [place] [phone] Application Support Consultant Unspecified 05/09/22 Picher Neurology Physician Neurology 07/02/18 [facility] 07/02/18 Cloth Weigher Relationship Specialty Start Date End Date Bal Denise MD [address], [place] 082381 PCP - General Family Medicine 12/18/17 Good, Ludlow S [address] [place] [address] Cardiology 07/02/18January, Lizette Johnson RN [address] [place] [address] Application Support Consultant Unspecified 05/09/22 Picher Neurology Physician Neurology 07/02/18 [facility] 07/02/18 Cloth Weigher Relationship Specialty Start Date End Date Bal Denise MD [address] [place] [address] PCP - General Family Medicine 12/18/17 Good, Jeffery S [address] [place] [address] Cardiology 07/02/18January, Lizette Johnson RN [address] [place] [address] Application Support Consultant Unspecified 05/09/22 Picher Neurology Physician Neurology 07/02/18 [facility] 07/02/18 Cloth Weigher Relationship Specialty Start Date End Date Bal Denise MD [address] [place] [address] PCP - General Family Medicine 12/18/17 Good, Ludlow S [address] [place] [address] Cardiology 07/02/18January, Lizette Johnson RN [address] [place], [place] [phone] Application Support Consultant Unspecified 05/09/22 Picher Neurology Physician Neurology 07/02/18 [facility] 07/02/18 Cloth Weigher Relationship Specialty Start Date End Date Bal Denise MD [address] [place] [address] PCP - General Family Medicine 12/18/17 Good, Jeffery S [address] [place] [address] Cardiology 07/02/18January, Lizette Johnson RN [address] [place], [place] [phone] Application Support Consultant Unspecified 05/09/22 Picher Neurology Physician Neurology 07/02/18 [facility] 07/02/18 Cloth Weigher Relationship Specialty Start Date End Date Bal Denise MD [address] [place] [address] PCP - General Family Medicine 12/18/17 Good, Ludlow S [address] [facility] [address] [place] [address] Cardiology 07/02/18January, Lizette Johnson RN [address] [place] [address] Application Support Consultant Unspecified 05/09/22 Picher Neurology Physician Neurology 07/02/18 [facility] 07/02/18 Cloth Weigher Relationship Specialty Start Date End Date Bal Denise MD [address] [facility] [place] [address] PCP - General Family Medicine 12/18/17 GoodRylan grantril S [address] [address] Cardiology 07/02/18January, Lizette Johnson RN [address] [place], [place] [phone] Application Support Consultant Unspecified 05/09/22 Picher Neurology Physician Neurology 07/02/18 [facility] 07/02/18 Cloth Weigher Relationship Specialty Start Date End Date Bal Denise MD [address] [place] [address] PCP - General Family Medicine 12/18/17 Good, Ludlow S [address] [address] Cardiology 07/02/18January, Lizette Johnson RN [address] [place] [address] Application Support Consultant Unspecified 05/09/22 Picher Neurology Physician Neurology 07/02/18 [facility] 07/02/18 Cloth Weigher Relationship Specialty Start Date End Date Bal Denise MD [address] [place] [address] PCP - General Family Medicine 12/18/17 Good, Ludlow S [address] [address] Cardiology 07/02/18January, Lizette Johnson RN [address] [place] [address] Application Support Consultant Unspecified 05/09/22 Picher Neurology Physician Neurology 07/02/18 [facility] 07/02/18 Cloth Weigher Relationship Specialty Start Date End Date Bal Denise MD [address], [place] 6834[address] PCP - General Family Medicine 12/18/17 Jeffery Funk [address] [id number] Cardiology 07/02/18January, Lizette Johnson RN [address] [place] [address] Application Support Consultant Unspecified 05/09/22 Picher Neurology Physician Neurology 07/02/18 [facility] 07/02/18 Cloth Weigher Relationship Specialty Start Date End Date Bal Denise MD [address], [place] [id number] PCP - General Family Medicine 12/18/17 Jeffery Funk [address] [id number] Cardiology 07/02/18January, Lizette Johnson RN [address] [place], [place] [phone] Application Support Consultant Unspecified 05/09/22 Picher Neurology Physician Neurology 07/02/18 [facility] 07/02/18 Cloth Weigher Relationship Specialty Start Date End Date Bal Denise MD [address], [place] [id number] PCP - General Family Medicine 12/18/17 Good, Jeffery S [address] [place], [place] [address] [phone] Cardiology 07/02/18January, Lizette Johnson RN [address] [place], [place] [phone] Application Support Consultant Unspecified 05/09/22 Picher Neurology Physician Neurology 07/02/18 [facility] 07/02/18 Cloth Weigher Relationship Specialty Start Date End Date Bal Denise MD [address], [place] [id number] PCP - General Family Medicine 12/18/17 Good, Ludlow S [address] [place], [place] [phone] Cardiology 07/02/18January, Lizette Johnson RN [address] [place] [address] Application Support Consultant Unspecified 05/09/22 Picher Neurology Physician Neurology 07/02/18 [facility] 07/02/18 Cloth Weigher Relationship Specialty Start Date End Date Bal Denise MD [address], [place] [id number] PCP - General Family Medicine 12/18/17 Good, Ludlow S [address] [place], [place] [phone] Cardiology 07/02/18January, Lizette Johnson RN [address] [place] [address] Application Support Consultant Unspecified 05/09/22 Picher Neurology Physician Neurology 07/02/18 [facility] 07/02/18 Cloth Weigher Relationship Specialty Start Date End Date Bal Denise MD [address], [place] [id number] PCP - General Family Medicine 12/18/17 Good, Ludlow S [address] [address] Cardiology 07/02/18January, Lizette Johnson RN [address] [place], [place] [phone] Application Support Consultant Unspecified 05/09/22 Picher Neurology Physician Neurology 07/02/18 [facility] 07/02/18 Cloth Weigher Relationship Specialty Start Date End Date Bal Denise MD [address] [place] [address] PCP - General Family Medicine 12/18/17 Good, Ludlow S [address] [address] Cardiology 07/02/18January, Lizette Johnson RN [address] [place] [address] Application Support Consultant Unspecified 05/09/22 Picher Neurology Physician Neurology 07/02/18 [facility] 07/02/18 Cloth Weigher Relationship Specialty Start Date End Date Bal Denise MD [address], [place] [phone] PCP - General Family Medicine 12/18/17 Good, Jeffery S [address] [address] Cardiology 07/02/18January, Lizette Johnson RN [address] [place], [place] [phone] Application Support Consultant Unspecified 05/09/22 Picher Neurology Physician Neurology 07/02/18 [facility] 07/02/18 Cloth Weigher Relationship Specialty Start Date End Date Bal Denise MD [address] [place] [address] PCP - General Family Medicine 12/18/17 Jeffery Funk [address] [place] [address] Cardiology 07/02/18January, Lizette Johnson RN [address] [place] [address] Application Support Consultant Unspecified 05/09/22 Picher Neurology Physician Neurology 07/02/18 [facility] 07/02/18 Cloth Weigher Relationship Specialty Start Date End Date Bal Denise MD [address] [place] [address] PCP - General Family Medicine 12/18/17 Jeffery Funk [address] [address] Cardiology 07/02/18January, Lizette Johnson RN [address] [place] [address] Application Support Consultant Unspecified 05/09/22 Picher Neurology Physician Neurology 07/02/18 [facility] 07/02/18 Cloth Weigher Relationship Specialty Start Date End Date Bal Denise MD [address] [facility] [place] [address] PCP - General Family Medicine 12/18/17 Jeffery Funk MD [address] [place] [address] Cardiology 07/02/18January, Lizette Johnson RN [address] [place], [place] [phone] Application Support Consultant Unspecified 05/09/22 [facility] Neurology Physician Neurology 07/02/18 [facility] 07/02/18 Cloth Weigher Relationship Specialty Start Date End Date Bal Denise MD [address] [place] [address] PCP - General Family Medicine 12/18/17 Jeffery Funk MD [address] [address] Cardiology 07/02/18January, Lizette Johnson RN [address] [place] [address] Application Support Consultant Unspecified 05/09/22 Picher Neurology Physician Neurology 07/02/18 [facility] 07/02/18 Cloth Weigher Relationship Specialty Start Date End Date Bal Denise MD [address], [place] [address] PCP - General Family Medicine 12/18/17 Jeffery Funk MD [address] [place] [address] Cardiology 07/02/18JanuaryLizette RN [address] [place], [place] [phone] Application Support Consultant Unspecified 05/09/22 Picher Neurology Physician Neurology 07/02/18 [facility] 07/02/18 Cloth Weigher Relationship Specialty Start Date End Date Bal Denise MD [address], [place] [id number] PCP - General Family Medicine 12/18/17 Jeffery Funk MD [address] [place] [phone] Cardiology 07/02/18January, Lizette Johnson RN [address] [place] [address] Application Support Consultant Unspecified 05/09/22 Picher Neurology Physician Neurology 07/02/18 [facility] 07/02/18 Cloth Weigher Relationship Specialty Start Date End Date Bal Denise MD [address], [place] [id number] PCP - General Family Medicine 12/18/17 Jeffery Funk MD [address] [phone] Cardiology 07/02/18January, Lizette Johnson RN [address] [place] [address] Application Support Consultant Unspecified 05/09/22 Picher Neurology Physician Neurology 07/02/18 [facility] 07/02/18 Cloth Weigher Relationship Specialty Start Date End Date Bal Denise MD [address], [place] [phone] PCP - General Family Medicine 12/18/17 Jeffery Funk MD [address] [place], [place] [address] Cardiology 07/02/18January, Lizette Johnson RN [address] [place] [address] Application Support Consultant Unspecified 05/09/22 Picher Neurology Physician Neurology 07/02/18 [facility] 07/02/18 Cloth Weigher Relationship Specialty Start Date End Date Bal Denise MD [address], [place] [phone] PCP - General Family Medicine 12/18/17 Jeffery Funk MD [address] [place] [address] Cardiology 07/02/18January, Lizette Johnson RN [address] [place] [address] Application Support Consultant Unspecified 05/09/22 Picher Neurology Physician Neurology 07/02/18 [facility] 07/02/18 Cloth Weigher Relationship Specialty Start Date End Date Bal Denise MD [address], [place] [phone] PCP - General Family Medicine 12/18/17 Jeffery Funk MD [address] [place], [place] [id number] Cardiology 07/02/18January, Lizette Johnson RN [address] [place] [address] Application Support Consultant Unspecified 05/09/22 Picher Neurology Physician Neurology 07/02/18 [facility] 07/02/18 Cloth Weigher Relationship Specialty Start Date End Date Bal Denise MD [address], [place] [id number] PCP - General Family Medicine 12/18/17 Jeffrey Funk MD [address] [phone] Cardiology 07/02/18January, Lizette Johnson RN [address] [place] [address] Application Support Consultant Unspecified 05/09/22 Picher Neurology Physician Neurology 07/02/18 [facility] 07/02/18 Cloth Weigher Relationship Specialty Start Date End Date Bal Denise MD [address], [place] [phone] PCP - General Family Medicine 12/18/17 Jeffery Funk MD [address] [phone] Cardiology 07/02/18January, Lizette Johnson RN [address] [place] [address] Application Support Consultant Unspecified 05/09/22 Picher Neurology Physician Neurology 07/02/18 [facility] 07/02/18 Cloth Weigher Relationship Specialty Start Date End Date Bal Denise MD [address], [place] [id number] PCP - General Family Medicine 12/18/17 Jeffery Funk MD [address] [place] [phone] Cardiology 07/02/18January, Lizette Johnson RN [address] [place] [address] Application Support Consultant Unspecified 05/09/22 Picher Neurology Physician Neurology 07/02/18 [facility] 07/02/18 Cloth Weigher Relationship Specialty Start Date End Date Bal Denise MD [address], [place] [phone] PCP - General Family Medicine 12/18/17 Jeffery Funk MD [address] [id number] Cardiology 07/02/18January, Lizette Johnson RN [address] [place] [address] Application Support Consultant Unspecified 05/09/22 Picher Neurology Physician Neurology 07/02/18 [facility] 07/02/18 Cloth Weigher Relationship Specialty Start Date End Date Bal Denise MD [address], [place] [id number] PCP - General Family Medicine 12/18/17 Jeffery Funk MD [address] [id number]- Cardiology 07/02/18January, Lizette Johnson RN [address] [place] [address] Application Support Consultant Unspecified 05/09/22 Picher Neurology Physician Neurology 07/02/18 [facility] 07/02/18 Cloth Weigher Relationship Specialty Start Date End Date Bal Denise MD [address], [place] 280961 PCP - General Family Medicine 12/18/17 Jeffery Funk MD [address] [place], [place] [address] Cardiology 07/02/18January, Lizette Johnson RN [address] [place] [address] Application Support Consultant Unspecified 05/09/22 Picher Neurology Physician Neurology 07/02/18 [facility] 07/02/18 Cloth Weigher Relationship Specialty Start Date End Date Bal Denise MD [address] [place] [address] PCP - General Family Medicine 12/18/17 Jeffery Funk MD [address] [address] Cardiology 07/02/18January, Lizette Johnson RN [address] [place] [address] Application Support Consultant Unspecified 05/09/22 Picher Neurology Physician Neurology 07/02/18 [facility] 07/02/18 Cloth Weigher Relationship Specialty Start Date End Date Bal Denise MD [address], [place] [phone] PCP - General Family Medicine 12/18/17 Jeffery Funk MD [address] [place], [place] [phone] Cardiology 07/02/18January, Lizette Johnson RN [address] [place] [address] Application Support Consultant Unspecified 05/09/22 Picher Neurology Physician Neurology 07/02/18 [facility] 07/02/18 Cloth Weigher Relationship Specialty Start Date End Date Bal Denise MD [address], [place] [phone] PCP - General Family Medicine 12/18/17 Jeffery Funk MD [address] [place] [phone] Cardiology 07/02/18January, Lizette Johnosn RN [address] [place] [address] Application Support Consultant Unspecified 05/09/22 Picher Neurology Physician Neurology 07/02/18 [facility] 07/02/18 Cloth Weigher Relationship Specialty Start Date End Date Bal Denise MD [address], [place] [phone] PCP - General Family Medicine 12/18/17 Jeffery Funk MD [address] [place], [place] [phone] Cardiology 07/02/18January, Lizette Johnson RN [address] [place] [address] Application Support Consultant Unspecified 05/09/22 Picher Neurology Physician Neurology 07/02/18 [facility] 07/02/18 Care Team (unrecognized sect ion and content) Care Team Personnel Name: BAL DENISE MD Member Role: Primary Care Physician Address: Address: [facility] [address] Care Team Related Persons Name: GENE JADE FOR RECORDS PERTAINING TO PATIENTS WHO ARE OR HAVE BEEN ENROLLED IN A CHEMICAL DEPENDENCY/SUBSTANCEABUSE PROGRAM, SOME INFORMATION MAY BE OMITTED. This clinical summary was aggregated from multiple sources. Caution should be exercised in using it in the provision of clinical care. This summary normalizes information from multiple sources, and as a consequence, information in this document may materially change the coding, format and clinical context of patient data. In addition, data may be omitted in some cases. CLINICAL DECISIONS SHOULD BE BASED ON THE PRIMARY CLINICAL RECORDS. [employer] provides no warranty or guarantee of the accuracy or completeness of information in this document.
[2023-10-01 18:57] LABS: POSITIVE COUNT NO; POSITIVE DIFFERENTIAL NO; POSITIVE MORPHOLOGY NO
--- NOTE | 2023-10-01 19:00 | RAD_ITS ---
STUDY: X-RAY - PELVIS AND BILATERAL HIPS REASON FOR EXAM: Female, 78 years old. pain TECHNIQUE: AP view of the pelvis.? 2 views of the right hip, and 2 views of the left hip were obtained. COMPARISON: None. FINDINGS: There is a non-specific bowel gas pattern. Normal visualized soft tissue structures. There is diffuse demineralization of the osseous structures. There is narrowing with cortical sclerosis and osteophyte formation of the sacroiliac joint consistent with degenerative osteoarthritic changes. Normal bilateral superior and inferior pubic rami. Normal pubic symphysis. Normal bilateral ischial tuberosities. Normal visualized right femoral head. Normal right acetabulum. There is moderate articular joint space narrowing of the right hip. Normal visualized left femoral head. Normal left acetabulum. There is moderate articular joint space narrowing of the left hip. 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 No demonstrated fracture or suspicious osseous lesion. However, hip and pelvic fractures in patients of this age can be subtle, if there is strong clinical suspicion of a fracture, recommend further evaluation with CT Electronically Signed: Mode Prabhakar MD at 19:28 EST ,
--- NOTE | 2023-10-01 19:00 | RAD_ITS ---
STUDY: X-RAY CHEST REASON FOR EXAM: Female, 78 years old. Chest pain/pressure TECHNIQUE: Single AP portable view of the chest. COMPARISON: 07/26/2023 FINDINGS: Chronic interstitial changes in both lung blas without a superimposed acute pulmonary process. There is no demonstrated pleural abnormality. Sternal cerclage wires and vascular clips are present from a prior sternotomy and coronary artery bypass graft procedure (CABG). Normal mediastinum and ale. Normal visualized pulmonary arteries. Normal visualized aortic arch and descending thoracic aorta. Normal visualized thoracic spine. Normal visualized ribs, clavicles, and shoulders. There is no demonstrated abnormality of the visualized soft tissue structures of the upper abdomen. RAD/Chest 1 View (Portable) IMPRESSION: Chronic interstitial changes, no superimposed acute pulmonary process Electronically Signed: Mode Prabhakar MD at 19:27 EST ,
[2023-10-01 19:06] LABS: AST(SGOT) 19 U/L (15-37); Alanine Aminotransfer ALT/SGPT 25 U/L (13-56); Albumin, Serum 3.3 g/dL (3.2-5.0); Alkaline Phosphatase 103 U/L (45-117); Anion Gap 3 (5-15); BUN 14 mg/dL (7-18); BUN/Creat Ratio 11.2 RATIO (10-20); Calcium,Total 9.4 mg/dL (8.5-10.1); Chloride 108 mmol/L (98-107); Creatinine, Serum 1.25 mg/dL (0.55-1.02); EST Glomerular Filtration Rate 44 mL/min (>60); Est Glom Filt Rate - Afr Amer 54 mL/min (>60); Estimated Creatinine Clearance 46.41 ml/min; Globulin 3.3 g/dL (2.2-4.2); Glucose 113 mg/dL (74-106); Potassium 4.1 mmol/L (3.5-5.1); Protein, Total 6.6 g/dL (6.4-8.2); Sodium Level 141 mmol/L (136-145)
[2023-10-01 19:46] LABS: Bacteria 0 SEEN /hpf (None Seen); Mucous, Urine 0 SEEN /hpf (<or=2+); Red Blood Cells-Urine 0 SEEN /hpf (0-5)
[2023-10-01 19:53] LABS: Color, Urine Yellow (Yellow); Glucose, Dipstick Normal (Normal); Ketone-Dipstick Negative (Negative); Leukocyte Esterase-Dipstick Negative /ul (Negative); Nitrite-Dipstick Negative (Negative); Occult Blood-Urine Negative /ul (Negative); Protein-Dipstick Negative (Negative); Urine Bilirubin Dipstick Negative (Negative); Urine Clarity Sl. Cloudy (Clear); Urine Urobilinogen Normal (Normal)
[2023-10-01 20:03] LABS: Squamous Epithelial Cells - UA 0-5 SEEN /hpf (5-10); White Blood Cells 0-5 SEEN /hpf (0-5)
[2023-10-01 20:29] VITALS: BP 116/102; PULSE 72
== END 2023-10-01 20:35 | disposition home or self-care (01) ==
PROVIDERS: Emergency Provider Emergency Medicine; PCP Family Medicine; Visit Provider Emergency Medicine
DX: R55 Syncope and collapse (principal); I48.0 Paroxysmal atrial fibrillation; N18.32 Chronic kidney disease, stage 3b; S09.90XA Unspecified injury of head, initial encounter; M25.551 Pain in right hip; M25.552 Pain in left hip; Z79.01 Long term (current) use of anticoagulants; I25.10 Atherosclerotic heart disease of native coronary artery without angina pectoris; I12.9 Hypertensive chronic kidney disease with stage 1 through stage 4 chronic kidney disease, or unspecified chronic kidney disease; Z86.73 Personal history of transient ischemic attack (TIA), and cerebral infarction without residual deficits; K21.9 Gastro-esophageal reflux disease without esophagitis; Z79.899 Other long term (current) drug therapy; Z79.82 Long term (current) use of aspirin; F41.9 Anxiety disorder, unspecified; E03.9 Hypothyroidism, unspecified
CPT/HCPCS: 70450; 71045; 73521; 80053; 81001; 85025; 93005; 96374; 99284; A4216

== ENCOUNTER → 2023-10-14 | Outpatient (CLI) | payer MEDICARE, MEDICAID, SELFPAY ==
--- NOTE | 2023-10-14 11:09 | CDU_ITS ---
Reason For Study: Dizziness/Syncope Rt. Velocities/BP Lt. Velocities/BP Prox CCA 54/10 cm/sec. Prox CCA 58/14 cm/sec. Mid CCA 59/14 cm/sec. Mid CCA 54/11 cm/sec. Dist CCA 49/14 cm/sec. Dist CCA 50/11 cm/sec. Prox ICA 129/30 cm/sec. Prox ICA 125/32 cm/sec. Mid ICA 118/27 cm/sec. Mid ICA 93/23 cm/sec. Dist ICA 105/29 cm/sec. Dist ICA 76/27 cm/sec. Rt. ICA/CCA = 2.2. Lt. ICA/CCA = 2.3. Prox ECA 74/7 cm/sec. Prox ECA 62/7 cm/sec. Rt. Vert. 52/14 cm/sec. Lt. Vert. 37/10 cm/sec. Right Extracranial There is heterogeneous, irregular atherosclerotic plaque noted in the right common carotid artery. There is heterogeneous, irregular atherosclerotic plaque noted in the right internal carotid artery. There is intimal thickening but no significant atherosclerotic plaque noted in the right external carotid artery. Antegrade flow is noted in the right vertebral artery. Left Extracranial There is heterogeneous, irregular atherosclerotic plaque noted in the left common carotid artery. There is heterogeneous, irregular atherosclerotic plaque noted in the left internal carotid artery. The left internal carotid artery is very tortuous. There is intimal thickening but no significant atherosclerotic plaque noted in the left external carotid artery. Antegrade flow is noted in the left vertebral artery. Procedure Carotid Duplex [id number]. This is a Carotid Duplex examination using B-mode, color flow and specral Doppler. Exam performed in department. VL/Carotid Duplex Ultrasound Interpretation Summary Moderate (50-69%) stenosis right extracranial internal carotid. Moderate (50-69%) stenosis left extracranial internal carotid. Patent and antegrade vertebrals bilaterally. Ordering Physician: Kassi Lyle Referring Physician: Bal Benz Performed By: Jacqui Murcia, RDCS, RVT
== END | disposition home or self-care (01) ==
PROVIDERS: PCP Family Medicine; Referring Provider Nurse Practitioner Gerontology; Visit Provider Nurse Practitioner Gerontology
DX: R42 Dizziness and giddiness (principal); R55 Syncope and collapse
CPT/HCPCS: 93880

== ENCOUNTER 2023-11-01 17:59 | Emergency (ER) | payer MEDICARE, MEDICAID, SELFPAY ==
[2023-11-01 18:14] VITALS: BP 174/105; PULSE 74; RESP 18; TEMP 36.2; O2SAT 93
[2023-11-01 18:19] VITALS: BP 174/105; PULSE 74; RESP 18; TEMP 36.2; O2SAT 93
--- NOTE | 2023-11-01 19:26 | CT_ITS ---
EXAM: CT HEAD WITHOUT INTRAVENOUS CONTRAST CLINICAL INDICATION: FALL, BLOOD THINNERS TECHNIQUE: Multiple axial images were obtained of the head without intravenous contrast. This CT exam was performed using one or more of the following dose reduction techniques: automated exposure control, adjustment of the mA and/or kV according to patient size, and/or use of iterative reconstruction technique. COMPARISON: 10/01/2023 FINDINGS: BRAIN AND EXTRA-AXIAL SPACES: Crowding of the parenchyma at the vertex and disproportionate enlargement of the supratentorial ventricles and the sylvian fissures compared to the sulcal spaces. There is non-specific periventricular hypoattenuation which is most commonly related to chronic microvascular ischemic disease in a patient of this age. There is no mass, mass-effect, or shift of the midline structures. No evidence of acute infarct or acute intracranial hemorrhage. There is no evidence of pathologic extra-axial fluid. Patent basal cisterns. BONES/JOINTS: No significant abnormality. No discrete lytic or blastic abnormalities. VASCULATURE: Arteriosclerosis. SINUSES: No significant findings. MASTOID AIR CELLS: No significant effusion. ORBITS: Bilateral ocular lens extraction presumptively for the treatment of cataracts. Otherwise, no acute orbital pathology. CT/Brain/Head without Contrast IMPRESSION: Findings consistent with normal pressure hydrocephalus. Chronic microvascular ischemic changes. No acute pathology. Electronically Signed: Kihsan Sprague DO at 20:06 EST ,
--- NOTE | 2023-11-01 20:05 | EKG12_ITS ---
Test Reason : DYSRHYTHMIA Blood Pressure : / mmHG Vent. Rate : 068 BPM Atrial Rate : 068 BPM P-R Int : 178 ms QRS Dur : 090 ms QT Int : 418 ms P-R-T Axes : 020 009 036 degrees QTc Int : 444 ms Normal sinus rhythm Normal ECG Confirmed by JOSE TIRADO, MIKHAIL ([id number]), sports editor ENEIDA FREED ([id number]) on 11/04/2023 9:45:30 AM Referred By: Confirmed By:MIKHAIL GARCIA MD
--- NOTE | 2023-11-01 20:10 | EX.ED.GENINJ ---
HPI <Tiesha Dunbar RN - Last Filed: 11/01/23 23:46> History of Present Illness Chief Complaint: Fall Informant: patient Onset/Context/Timing Onset: Today (1800) Mechanism/Context: Fall (Fall onto grass) Location: Right face, right arm, right breast, right leg, left leg Current Severity: Gone Maximum Severity: Mild Associated Symptoms Associated Symptoms: Positive for Weakness; Negative for Parasthesias, Loss of function or Inability to ambulate Length of loss of consciousness: Patient reports she blacked out Narrative Narrative: Patient with past medical history significant for Alzheimer's, falls, atrial fibrillation on anticoagulants presents to the ED via EMS after sustaining a fall outside while walking her dog. Patient reports she was in the grass. Did not use any assistive devices. She said she blacked out . She cannot recall any of the events. Denies any dizziness, chest pain or palpitations. Reports neighbor called EMS. Of note patient seen 10/01/2023 for a fall status post syncopal episode. Had head CT at that time which was negative. Patient has had an additional fall between that visit and today. Following fall today, patient with ecchymosis to right side of face, right breast, right arm, and right thigh. Patient also with ecchymotic area to the lateral aspect of the left lower leg with a 1 cm skin tear. She also has multiple bruises on all extremities in various stages of healing. She reports this is from her blood thinner . Patient denies any pain at this time. She denies any dysuria, hematuria, or urinary frequency. Denies any recent illness. Upon daughter's arrival to patient room, she did indicate that patient had recently worn a Holter monitor for 2 weeks. She just received notice that the results of this were negative for dysrhythmias. Tetanus Immunization: <5 years Prior similar symptoms: Yes Recent Illness/Hospitalization: No PFSH <Tiesha Dunbar RN - Last Filed: 11/01/23 23:46> PFSH Medical History Acute gastric ulcer Alzheimer's dementia Anemia Anxiety Arthritis Atherosclerosis of coronary artery of [place] heart without angina pectoris Cardiology follow-up encounter Chronic anticoagulation Chronic cough Coagulopathy Difficulty swallowing Easy bruising Essential (primary) hypertension Excessive bleeding Fatty liver Gastric reflux GERD (gastroesophageal reflux disease) Hiatal hernia History of atrial fibrillation History of echocardiogram History of edema History of heart attack History of Holter monitoring History of IBS History of renal disease History of stress test HLD (hyperlipidemia) Hypertension Hypothyroidism Iron deficiency Low iron Non-smoker Obesity (BMI 30-39.9) Open wound Orthostatic hypotension Paroxysmal A-fib Paroxysmal atrial fibrillation Pseudoseizures Schatzki's ring Shortness of breath on exertion Stage 3b chronic kidney disease (CKD) Syncope Syncope TIA (transient ischemic attack) Wears dentures Wears glasses Home Medications budesonide 3 mg capsule,delayed,extended release 9 mg PO DAILY ASTHMA 06/08/20 [History Last Taken 07/16/23] ferrous sulfate 325 mg (65 mg iron) tablet 325 mg PO BID SUPPLEMENT 05/11/22 [History Last Taken 07/16/23] pantoprazole 40 mg tablet,delayed release 40 mg PO BID ACID REFLUX 05/11/22 [History Last Taken 07/16/23] loperamide 2 mg tablet (Imodium A-D) 2 mg PO Q4H PRN LOOSE STOOLS 07/06/22 [History Last Taken Unknown] atorvastatin 20 mg tablet 20 mg PO QHS CHOLESTEROL #90 tabs 04/09/23 [Rx Last Taken 07/15/23] acetaminophen 650 mg tablet,extended release (Tylenol Arthritis Pain) 650 mg PO Q12H PRN ARTHRITIS 07/16/23 [History Last Taken Unknown] apixaban 5 mg tablet 5 mg PO BID BLOOD THINNER 07/16/23 [History Last Taken 07/16/23] aspirin 81 mg tablet,delayed release 81 mg PO DAILY BLOOD THINNER 07/16/23 [History Last Taken 07/16/23] buspirone 5 mg tablet 5 mg PO TID ANXIETY 07/16/23 [History Last Taken 07/16/23] famotidine 20 mg tablet 20 mg PO QHS PRN ACID REFLUX 07/16/23 [History Last Taken Unknown] levothyroxine 100 mcg tablet 100 mcg PO DAILY THYROID 07/16/23 [History Last Taken 07/16/23] sertraline 100 mg tablet 100 mg PO QHS DEPRESSION 07/16/23 [History Last Taken 07/15/23] tramadol 50 mg tablet 50 mg PO Q6H PRN PAIN 07/16/23 [History Last Taken 07/16/23] Allergy/AdvReac Type Severity Reaction Status Date / Time procaine [From Novocain] AdvReac Other Verified 11/01/23 18:13 Family History Mother Heart disease Father Heart disease Alcoholism Surgical History H/O cardiac radiofrequency ablation H/O coronary artery bypass surgery (01/29/08) History of colonoscopy History of esophagogastroduodenoscopy (EGD) History of left heart catheterization (01/12/19) Status post ablation of atrial fibrillation Social History household members: none Smoking Status: Never smoker alcohol intake: never substance use type: does not use caffeine: Yes Type: coffee Number of servings: 6 ROS <Tiesha Dunbar RN - Last Filed: 11/01/23 23:46> ROS ED Constitutional Constitutional ED: Denies chills, fever(s) or sweats Eyes Eyes: Denies change in vision Cardiovascular Cardiovascular: Denies chest pain or palpitations Respiratory/Chest Respiratory/Chest: Denies cough or dyspnea Gastrointestinal Gastrointestinal: Denies abdominal pain, diarrhea, nausea or vomiting Genitourinary Genitourinary ED: Denies dysuria, hematuria or urinary frequency Musculoskeletal Musculoskeletal: Reports arthralgias and myalgias Integumentary Reports other Details: Centimeter skin tear to left lateral lower leg. Neurologic Neurologic: Reports weakness; Denies headache(s) Psychiatric Psychiatric: Denies anxiety or depression Hematologic/Lymphatic Hematologic/Lymphatic: Reports easy bleeding and easy bruising EXAM <Tiesha Dunbar RN - Last Filed: 11/01/23 23:46> Physical Exam Const Vital Signs: 11/01/23 18:14 11/01/23 18:19 11/01/23 20:32 Temperature 97.1 F L 97.1 F L Temperature Source Oral Temporal Pulse Rate 74 74 70 Respiratory Rate 18 18 22 H Respiratory Effort Blood Pressure 174/105 H 174/105 H 209/125 H Blood Pressure Mean 128 128 153 Pulse Ox 93 93 Oxygen Delivery Method Room Air Room Air 11/01/23 20:52 11/01/23 20:54 11/01/23 22:00 Temperature Temperature Source Pulse Rate 72 74 Respiratory Rate 21 H 18 Respiratory Effort Normal Non-Labored Blood Pressure 196/77 H 189/82 H Blood Pressure Mean 116 117 Pulse Ox Oxygen Delivery Method Room Air 11/01/23 23:54 Temperature 98.4 F Temperature Source Pulse Rate 72 Respiratory Rate 16 Respiratory Effort Blood Pressure 161/94 H Blood Pressure Mean 116 Pulse Ox 96 Oxygen Delivery Method Positive well nourished and well developed General Appearance ED: well developed and NAD Eyes PERRL and EOMs intact bilaterally Neck full ROM Chest Wall inspection of chest normal and palpation of chest normal Resp normal respiratory effort and clear to auscultation bilaterally Auscultation: Negative for rales, rhonchi or wheezes Cardio S1 normal heart sound and S2 normal heart sound Rate: regular rate GI normal to inspection, nondistended, normoactive bowel sounds and non-tender Palpation: soft Back/Spine normal to inspection Back/Spine Narrative: Chronic thoracic spine tenderness General Back: Negative for CVA tenderness Thoracic Spine / Upper Back: thoracic spinal tenderness Extremity full ROM Extremity Narrative: 3+ edema to bilateral lower extremities. Chronic tenderness to bilateral lower extremities General Extremety ED: Yes edema and tenderness General Extremity: edema Neuro oriented x3 Neuro Narrative: History of Alzheimer's [place] Coma Scale: document GCS findings Spontaneous Obeys Commands Oriented 15 Sensorium / Orientation: alert Motor Exam: strength 5/5 throughout Psych mental status grossly normal Skin Skin Narrative: See HPI. <Dr. Terra Torres MD - Last Filed: 11/02/23 01:32> Physical Exam Const Vital Signs: 11/01/23 18:14 11/01/23 18:19 11/01/23 20:32 Temperature 97.1 F L 97.1 F L Temperature Source Oral Temporal Pulse Rate 74 74 70 Respiratory Rate 18 18 22 H Respiratory Effort Blood Pressure 174/105 H 174/105 H 209/125 H Blood Pressure Mean 128 128 153 Pulse Ox 93 93 Oxygen Delivery Method Room Air Room Air 11/01/23 20:52 11/01/23 20:54 11/01/23 22:00 Temperature Temperature Source Pulse Rate 72 74 Respiratory Rate 21 H 18 Respiratory Effort Normal Non-Labored Blood Pressure 196/77 H 189/82 H Blood Pressure Mean 116 117 Pulse Ox Oxygen Delivery Method Room Air 11/01/23 23:54 Temperature 98.4 F Temperature Source Pulse Rate 72 Respiratory Rate 16 Respiratory Effort Blood Pressure 161/94 H Blood Pressure Mean 116 Pulse Ox 96 Oxygen Delivery Method Neuro Jenni Coma Scale: document GCS findings 15 MDM <Tiesha Dunbar RN - Last Filed: 11/01/23 23:46> [facility] Lab Data Labs: Laboratory Results - last 24 hr 11/01/23 11/01/23 20:29 20:30 WBC 8.3 RBC 4.13 L Hgb 12.6 Hct 39.3 MCV 95.2 MCH 30.5 MCHC 32.1 RDW Std Deviation 45.1 H RDW Coeff of Jessica 13.0 Plt Count 214 MPV 10.1 Immature Gran % (Auto) 0.200 Neut % (Auto) 71.7 H Lymph % (Auto) 17.6 L [place] % (Auto) 9.2 Eos % (Auto) 1.1 Baso % (Auto) 0.2 Absolute Neuts (auto) 5.9 Absolute Lymphs (auto) 1.45 Nucleated RBC % 0 Sodium 142 Potassium 3.9 Chloride 108 H Carbon Dioxide 29.0 Anion Gap 5 BUN 14 Creatinine 1.09 H Estim Creat Clear Calc 55.45 Est GFR (MDRD) Af Amer 63 Est GFR (MDRD) Non-Af 52 L BUN/Creatinine Ratio 12.8 Glucose 118 H Calcium 9.4 Urine Color Yellow Urine Clarity Clear Urine pH 6.0 Ur Specific [place] 1.010 Urine Protein Negative Urine Glucose (UA) Normal Urine Ketones Negative Urine Occult Blood Negative Urine Nitrite Negative Urine Bilirubin Negative Urine Urobilinogen Normal Ur Leukocyte Esterase 25 H Urine RBC 0 SEEN Urine WBC 0-5 SEEN Ur Squamous Epith Cells 0-5 SEEN Urine Bacteria 0 SEEN Urine Mucus 0 SEEN Radiography Diagnostic Testing: Clinical Impression(s) from Imaging Studies Brain CT 11/01/23 19:26 IMPRESSION: Findings consistent with normal pressure hydrocephalus. Chronic microvascular ischemic changes. No acute pathology. Electronically Signed: Kishan Sprague DO at 20:06 EST , Brain CT shows normal pressure hydrocephalus and chronic microvascular ischemic changes. Negative for acute hemorrhage. EKG Initial EKG: Interpretation: Sinus Rhythm and Non-Specific ST Changes Comments: Reviewed with Dr Torres, ED provider. EKG shows sinus rhythm with heart rate 68. No dysrhythmia or ischemia noted. Prior: Unchanged Differential Diagnosis Differential Diagnosis: Intercerebral hemorrhage Differential Diagnosis: Dysrhythmia Differential Diagnosis: Syncope Management Discussion w/another healthcare provider: Other (Dr. Torres, ED provider) Treatment and Re-Evaluation Narrative: Lab work and imaging reviewed. White blood cell count normal at 8.3, hemoglobin normal at 12.6, neutrophils slightly elevated at 71.7%. Chemistry shows slightly elevated chloride at 108, creatinine 1.09 which is actually lower than her last visit on 10/01/2023 in which it was 1.25, glucose elevated at 118. UA positive for leukocytes 25. No evidence of UTI. Brain CT shows normal pressure hydrocephalus and chronic microvascular ischemic changes. Negative for acute hemorrhage. Dr. Torres discussed the case with Dr. Quinn who is on-call for Dr. Benz as patient has had 3 falls in the past month and is on Eliquis. Patient also hypertensive and not on blood pressure medication. In reviewing past records, it was noted that patient was instructed by cardiology in September of this year to monitor her blood pressure for 1 to 2 weeks and report results to the bill recapitulation clerk. In speaking with the patient and her daughter, this has not been done. Dr. Quinn recommends blood pressure monitoring over the weekend and reporting results to her primary care provider and cardiology. He also recommends patient and family discussing frequency of falls and Eliquis with cardiology. Lab work and imaging reviewed with the patient and family. Patient family instructed to monitor and record her blood pressure over this weekend and call cardiology and her primary care provider with results. They have also been instructed to discuss frequency of falls and being on Eliquis with the bill recapitulation clerk as he is the one who had placed patient on Eliquis for paroxysmal A-fib. Reinforced need for using prescribed assistive devices at home. Patient and family agreeable with plan. Patient to be discharged home. <Dr. Terra Torres MD - Last Filed: 11/02/23 01:32> [facility] Narrative Medical decision making narrative: Patient placed on surveillance monitor. EKG obtained to evaluate for cardiac arrhythmia/ischemia. Labwork obtained to evaluate for leukocytosis, anemia, and electrolyte derangement. Urinalysis obtained to evaluate for infection/hematuria. Daughter at bedside states that she just had a 2-week surveillance monitor turned in. She received a call from cardiology today that there was no evidence of cardiac dysrhythmia. Lab Data Labs: Laboratory Results - last 24 hr 11/01/23 11/01/23 20:29 20:30 WBC 8.3 RBC 4.13 L Hgb 12.6 Hct 39.3 MCV 95.2 MCH 30.5 MCHC 32.1 RDW Std Deviation 45.1 H RDW Coeff of Jessica 13.0 Plt Count 214 MPV 10.1 Immature Gran % (Auto) 0.200 Neut % (Auto) 71.7 H Lymph % (Auto) 17.6 L [place] % (Auto) 9.2 Eos % (Auto) 1.1 Baso % (Auto) 0.2 Absolute Neuts (auto) 5.9 Absolute Lymphs (auto) 1.45 Nucleated RBC % 0 Sodium 142 Potassium 3.9 Chloride 108 H Carbon Dioxide 29.0 Anion Gap 5 BUN 14 Creatinine 1.09 H Estim Creat Clear Calc 55.45 Est GFR (MDRD) Af Amer 63 Est GFR (MDRD) Non-Af 52 L BUN/Creatinine Ratio 12.8 Glucose 118 H Calcium 9.4 Urine Color Yellow Urine Clarity Clear Urine pH 6.0 Ur Specific [place] 1.010 Urine Protein Negative Urine Glucose (UA) Normal Urine Ketones Negative Urine Occult Blood Negative Urine Nitrite Negative Urine Bilirubin Negative Urine Urobilinogen Normal Ur Leukocyte Esterase 25 H Urine RBC 0 SEEN Urine WBC 0-5 SEEN Ur Squamous Epith Cells 0-5 SEEN Urine Bacteria 0 SEEN Urine Mucus 0 SEEN Radiography Diagnostic Testing: Clinical Impression(s) from Imaging Studies Brain CT 11/01/23 19:26 IMPRESSION: Findings consistent with normal pressure hydrocephalus. Chronic microvascular ischemic changes. No acute pathology. Electronically Signed: Kishan Sprague DO at 20:06 EST , Treatment and Re-Evaluation Narrative: Lab work and imaging reviewed. White blood cell count normal at 8.3, hemoglobin normal at 12.6, neutrophils slightly elevated at 71.7%. Chemistry shows slightly elevated chloride at 108, creatinine 1.09 which is actually lower than her last visit on 10/01/2023 in which it was 1.25, glucose elevated at 118. UA positive for leukocytes 25. No evidence of UTI. Brain CT shows normal pressure hydrocephalus and chronic microvascular ischemic changes. Negative for acute hemorrhage. Dr. Torres discussed the case with Dr. Quinn who is on-call for Dr. Benz as patient has had 3 falls in the past month and is on Eliquis. Patient also hypertensive and not on blood pressure medication. In reviewing past records, it was noted that patient was instructed by cardiology in September of this year to monitor her blood pressure for 1 to 2 weeks and report results to the bill recapitulation clerk. In speaking with the patient and her daughter, this has not been done. Dr. Quinn recommends blood pressure monitoring over the weekend and reporting results to her primary care provider and cardiology. He also recommends patient and family discussing frequency of falls and Eliquis with cardiology. Lab work and imaging reviewed with the patient and family. Patient family instructed to monitor and record her blood pressure over this weekend and call cardiology and her primary care provider with results. They have also been instructed to discuss frequency of falls and being on Eliquis with the bill recapitulation clerk as he is the one who had placed patient on Eliquis for paroxysmal A-fib. Reinforced need for using prescribed assistive devices at home. Patient and family agreeable with plan. Patient to be discharged home. Patient seen and evaluated with [employer] student. I personally interviewed and examined the patient. I was involved in all aspects of patient's orders, interpretation of results, and treatment. Patient presents after fall. She reportedly was out walking her dog when she had a syncopal episode and fell. She reports that she has had multiple syncopal episodes with previous workups. Daughter states that she just had a 2-week Holter monitor/event monitor turned in and was reported to have no cardiac arrhythmias. Patient is currently on Eliquis. She denies complaints at this time. Head examination is unremarkable. Heart is regular rate and rhythm. Lung sounds are clear. Abdomen is soft and nontender. Neuro exam reveals no evidence of focal neurologic deficit. Skin examination feels small skin tear to left lower extremity. EKG is sinus rhythm at 68 bpm with no acute ischemia. CT scan of the head reveals findings consistent with normal pressure hydrocephalus. I did compare this to a CT read from 1 month ago and does not look significantly changed. CBC was normal white count 8.3 with normal hemoglobin. Chemistry studies unremarkable. Urinalysis reveals no evidence of acute infection. I did raise concern about patient being on anticoagulation as she has had 3 falls in the last month. She has multiple bruises on her extremities in different stages of healing. Family states that her doctors are not aware of her frequent falls. I spoke with Dr. Quinn, on-call for Dr. Benz. He asked that patient follow-up with her bill recapitulation clerk as they are managing her Eliquis, however he does voice concern about her remaining on Eliquis with her frequent falls. Patient's blood pressures have been elevated here. She denies history of hypertension and is not on any medication for blood pressure. I do have history of hypertension documented here. Patient was given a dose of hydralazine. She is a blood pressure cuff at home and we have asked her to keep a journal of her blood pressure readings through the weekend and follow-up with primary care physician next week. In reviewing the patient's most recent cardiology note it appears that she was instructed to do the same at her last cardiology visit. Patient be advised to follow-up with both cardiology as well as primary care physician. Discharge Plan Triage Chief Complaint: Fall ED Provider: Terra Torres Dx/Rx/DC Orders Clinical Impression: Coagulopathy, Skin tear, Hypertension, Fall Instructions: Falls Prevent Use Cane Walker, Blood Pressure Check Steps, ED Hypertension, Established, ED Skin Tear (Skin Avulsion), ED Fall Prevention Prescriptions: No Action pantoprazole 40 mg tablet,delayed release (DR/EC) 40 mg PO BID ferrous sulfate 325 mg (65 mg iron) tablet 325 mg PO BID budesonide 3 MG capsule,delayed,extend.release 9 mg PO DAILY loperamide [Imodium A-D] 2 mg Tablet 2 mg PO Q4H PRN (Reason: LOOSE STOOLS) Rx Instructions: administer after each loose stool until symptoms controlled; do not exceed 8 mg per 24 hrs buspirone 5 mg tablet 5 mg PO TID levothyroxine 100 mcg tablet 100 mcg PO DAILY tramadol 50 mg tablet 50 mg PO Q6H PRN (Reason: PAIN) Patient Comments: FILLED ON 07/11/23 AT [facility] A 7 DAY SUPPLY. Rx Instructions: TAKE ONE TABLET BY MOUTH EVERY 6 HOURS NEEDED FOR PAIN FOR UP TO 7 DAYS. sertraline 100 mg tablet 100 mg PO QHS acetaminophen [Tylenol Arthritis Pain] 650 mg tablet extended release 650 mg PO Q12H PRN (Reason: ARTHRITIS) apixaban 5 mg tablet 5 mg PO BID aspirin 81 mg tablet,delayed release (DR/EC) 81 mg PO DAILY famotidine 20 mg tablet 20 mg PO QHS PRN (Reason: ACID REFLUX ) atorvastatin 20 mg tablet 20 mg PO QHS Qty: 90 3RF Primary Care Provider: Bal Benz Referrals: Bal Benz MD [Primary Care Provider] - Activity Restrictions/Additional Instructions: Your lab work and imaging results are normal. Wash the skin tear with soap and water twice a day. Keep clean warm and dry. Monitor your blood pressure throughout the weekend and record the results on paper. Call Dr. Benz and your bill recapitulation clerk next week with your blood pressure results. Talk to your bill recapitulation clerk about your frequent falls and being on Eliquis. Use your walker or cane as prescribed. Follow-up with Dr. Benz in 1 week. Disposition Disposition: Home, Self Care Discharge Date/Time: 11/01/23 23:55
[2023-11-01 20:32] VITALS: BP 209/125; PULSE 70; RESP 22
[2023-11-01 20:37] LABS: Bacteria 0 SEEN /hpf (None Seen); Mucous, Urine 0 SEEN /hpf (<or=2+); Red Blood Cells-Urine 0 SEEN /hpf (0-5)
[2023-11-01 20:41] LABS: Color, Urine Yellow (Yellow); Glucose, Dipstick Normal (Normal); Ketone-Dipstick Negative (Negative); Leukocyte Esterase-Dipstick 25 /ul (Negative); Nitrite-Dipstick Negative (Negative); Occult Blood-Urine Negative /ul (Negative); Protein-Dipstick Negative (Negative); Urine Bilirubin Dipstick Negative (Negative); Urine Clarity Clear (Clear); Urine Urobilinogen Normal (Normal)
[2023-11-01 20:43] LABS: Absolute Lymphocyte Count 1.45 X10^3/uL (0.83-4.51); Absolute Neutrophil Count 5.9 X10^3/uL (2.0-7.7); Basophil# 0.02 X10^3/uL; Basophil% 0.2 % (0-1); Eosinophil# 0.09 X10^3/uL; Eosinophils% 1.1 % (0-5); Hematocrit 39.3 % (37-47); Hemoglobin 12.6 g/dL (12.0-15.0); Lymphocyte # 1.45 X10^3/ul (0.83-4.51); Lymphocyte % 17.6 % (19-41); Mean Corp Hgb Conc 32.1 g/dL (32-36); Mean Corpuscular Hgb 30.5 pg (27.0-32.0); Mean Corpuscular Volume 95.2 fL (81-99); Mean Platelet Vol. 10.1 fl (6.2-12.0); Monocyte# 0.76 X10^3/uL; Monocyte% 9.2 % (0-10); NRBC Flagged by Analyzer 0 % (0-5); Neutrophil # 5.92 X10^3/uL (2.7-7.7); Neutrophil % 71.7 % (47-70); Platelet Count 214 K/mm3 (150-450); RBC Distribution Width SD 45.1 fl (35.1-43.9); Red Blood Count 4.13 M/mm3 (4.2-5.4); White Blood Count 8.3 K/mm3 (4.4-11.0)
[2023-11-01] MEDS: hydrALAZINE 20 MG/ML Vial 10 MG IV (20:51)
[2023-11-01 20:54] VITALS: BP 196/77; PULSE 72; RESP 21; BMI 42.0
[2023-11-01 20:55] LABS: Anion Gap 5 (5-15); BUN 14 mg/dL (7-18); BUN/Creat Ratio 12.8 RATIO (10-20); Calcium,Total 9.4 mg/dL (8.5-10.1); Chloride 108 mmol/L (98-107); Creatinine, Serum 1.09 mg/dL (0.55-1.02); EST Glomerular Filtration Rate 52 mL/min (>60); Est Glom Filt Rate - Afr Amer 63 mL/min (>60); Estimated Creatinine Clearance 55.45 ml/min; Glucose 118 mg/dL (74-106); Potassium 3.9 mmol/L (3.5-5.1); Sodium Level 142 mmol/L (136-145)
--- OUTSIDE RECORDS SUMMARY | 2023-11-01 21:14 | XMS RPT_ITS | CCD ---
Author Name Unknown Address [address] [place] [address] Organization [facility] Care Team Providers Care Inspector Raw Quartz Name Role Phone Bal Denise MD Primary Care Provider Good, [place] S Unavailable BAL DENISE MD Primary Care Physician Bal Denise MD Primary Care Provider [phone] Good, [place] S Unavailable January Lizette GARCIA Unavailable Good, Jeffery S Unavailable January Lizette GARCIA Unavailable Bal Denise MD Primary Care Provider Bal Denise MD Primary Care Provider [phone] Good, Jeffery S Unavailable January Lizette GARCIA Unavailable Good, Jeffery S Unavailable January Lizette GARCIA Unavailable Good TIRADO Jeffery S Unavailable Yanni DAVIDSON Referring Unavailable EDWINA OROSCO Attending Unavailable BAL DENISE Primary Care Unavailable BAL DENISE Primary Care Unavailable EDWINA OROSCO Attending Unavailable BAL DENISE Primary Care Unavailable EDWINA OROSCO Attending Unavailable Yanni DAVIDSON Attending Unavailable BAL DENISE Primary Care Unavailable BAL DENISE Referring Unavailable BAL DENISE Primary Care Unavailable BAL DENISE Primary Care Unavailable HOWIE, BAL Johnson Attending Unavailable RAYMUNDO DALAL Attending Unavailab le HOWIE, BAL Johnson Primary Care Unavailable HOWIE, BAL Johnson Attending Unavailable HOWIE, BAL Johnson Primary Care Unavailable ANASTASIYA LUA Referring Unavailable HOWIE, BAL Johnson Primary Care Unavailable HOWIE, BAL Johnson Primary Care Unavailable Yanni DAVIDSON Attending Unavailable HOWIE, BAL Johnson Primary Care Unavailable Yanni DAVIDSON Referring Unavailable HOWIE, BAL Johnson Primary Care Unavailable HOWIE, BAL Johnson Primary Care Unavailable HOWIE, BAL Johnson Attending Unavailable HOWIE, BAL Johnson Referring Unavailable HOWIE, BAL Johnson Primary Care Unavailable HOWIE, BAL Johnson Primary Care Unavailable HOWIE, BAL Johnson Referring Unavailable CONNOR WOLFE Attending Unavailable HOWIE, BAL Johnson Referring Unavailable HOWIE, BAL Johnson Primary Care Unavailable CONNOR WOLFE Attending Unavailable HOWIE, BAL Johnson Referring Unavailable HOWIE, BAL Johnson Primary Care Unavailable HOWIE, BAL Johnson Referring Unavailable HOWIE, ABL Johnson Primary Care Unavailable HOWIE, BAL Johnson [...] Unavailable HOWIE, BAL Johnson Primary Care Unavailable EDWINA OROSCO Referring Unavailable HOWIE, BAL Johnson Primary Care Unavailable Yanni DAVIDSON Attending Unavailable HOWIE, BAL Johnson Primary Care Unavailable HOWIE, BAL Johnson Attending Unavailable ANASTASIYA LUA Attending Unavailable HOWIE, BAL Johnson Primary Care Unavailable HOWIE, BAL Johnson Referring Unavailable HOWIE, BAL Johnson Primary Care Unavailable HOWIE, BAL Johnson Referring Unavailable ANA TUCKER Attending Unavailable HOWIE, BAL Johnson Primary Care Unavailable RAYMUNDO DALAL Attending Unavailab le HOWIE, BAL Johnson Primary Care Unavailable ANA TUCKER Referring Unavailable HOWIE, BAL Johnson Primary Care Unavailable CONNOR WOLFE Attending Unavailable HOWIE, BAL Johnson Referring Unavailable HOWIE, BAL Johnson Primary Care Unavailable HOWIE, BAL Johnson Primary Care Unavailable HOWIE, BAL Johnson Attending Unavailable MARTINA SERRANO Referring Unavailable HOWIE, BAL Johnson Primary Care Unavailable HOWIE, BAL Johnson Primary Care Unavailable ANA TUCKER Attending Unavailable HOWIE, BAL Johnson Referring Unavailable HOWIE, BAL Johnson Primary Care Unavailable HOWIE, BAL J Attending Unavailable BAL DENISE Primary Care Unavailable BAL DENISE Referring Unavailable HOWIEBAL Primary Care Unavailable HOWIE, BAL Johnson Referring Unavailable HOWIE, BAL Johnson Primary Care Unavailable HOWIE, BAL Johnson Referring Unavailable HOWIE, BAL Johnson Primary Care Unavailable HOWIE, BAL Johnson Primary Care Unavailable BAL DENISE Attending Unavailable BAL DENISE Referring Unavailable HOWIE, BAL Johnson Primary Care Unavailable LILLY GUDINO Attending Unavailable HOWIE, BAL Johnson Primary Care Unavailable Yanni DAVIDSON Referring Unavailable HOWIE, BAL Johnson Primary Care Unavailable HOWIE, BAL Johnson Referring Unavailable HOWIEBAL Primary Care Unavailable HOWIE, BAL Johnson Primary Care Unavailable HOWIE, BAL Johnson Primary Care Unavailable HOWIE, BAL Johnson Referring Unavailable Allergies Allergy Classification Reported Allergen(s) Allergy Type Date of Onset Reaction(s) Facility (20 sources) Procaine; Translations: [PROCAINE HCL] Drug Allergy 08-23-2016 Other: See Comments [facility] Work Phone: (1 source) Procaine; Translations: [procaine] Drug Allergy [facility] Medications Current Medications Medication Drug Class(es) Dates Sig (Normalized) Sig (Original) busPIRone hydrochloride 5 mg oral tablet (20 sources) Start: 04-03-2023 End: 04-02-2024 take 1 tablet by mouth three times daily busPIRone (BUSPAR) 5 mg tablet Indications: Anxiety Take 1 tablet by mouth three times daily. 90 tablet 11 04/03/2023 04/02/2024 Active Completed/Discontinued Medications Medication Drug Class(es) Dates Sig (Normalized) Sig (Original) [id number] 200 actuat albuterol 0.09 mg/actuat metered dose [...] unspecified whether stage 3a or 3b CKD ([facility])] Onset: 2 Chronic obstructive pulmonary disease and bronchiectasis (1 source) Bronchitis; Translations: [Bronchitis, not specified as acute or chronic] Episodic Chronic ulcer of skin (19 sources) Chronic [...] Coronary atherosclerosis; Translations: [Atherosclerotic heart disease of [place] coronary artery without angina pectoris] Onset: 8 06-23-2020 Chronic Delirium, dementia, and amnestic and other cognitive disorders (20 sources) Alzheimer's disease; Translations: [Alzheimer's disease, unspecified] Onset: 8 12-18-2017 Chronic Diabetes mellitus without complication (3 sources) Hyperglycemia; Translations: [Hyperglycemia, unspecified] Onset: 3 04-12-2023 Episodic Disorders of lipid metabolism (20 sources) Hyperlipidemia; Translations: [Other hyperlipidemia] Onset: 1 12-19-2020 Chronic Disorders of teeth and jaw (1 source) Temporomandibular joint disorder; Translations: [Unspecified temporomandibular joint disorder, unspecified side] Episodic Epilepsy; convulsions (20 sources) Dissociative convulsions; Translations: [Unspecified convulsions] 10-26-2021 Episodic Past or Other Problems Problem Classification Problem Date Documented Da te Episodic/Chronic Abdominal hernia (20 sources) Diaphragmatic hernia; Translations: [Diaphragmatic hernia without obstruction or gangrene] Onset: 03-12-2022 10-08-2022 Episodic Coronary atherosclerosis and other heart disease (20 sources) Aortocoronary bypass graft present; Translations: [Presence of aortocoronary bypass graft] Onset: 01-17-2022 10-08-2022 Episodic Deficiency and other anemia (20 sources) Anemia; Translations: [Anemia, unspecified] Onset: 04-02-2022 Episodic Deficiency and other anemia (20 sources) Iron deficiency anemia; Translations: [Iron deficiency anemia, unspecified] Onset: 05-11-2022 10-08-2022 Episodic Fluid and electrolyte disorders (2 sources) Hypokalemia; Translations: [Hypokalemia] Onset: 02-20-2023 Episodic Malaise and fatigue (20 sources) Fatigue; Translations: [Other fatigue] Onset: 03-26-2022 10-08-2022 Episodic Nonspecific chest pain (19 sources) Chest pain; Translations: [Chest pain, unspecified] Onset: 10-08-2022 10-08-2022 Episodic Nutritional deficiencies (20 sources) Iron deficiency; Translations: [Iron deficiency] Onset: 04-02-2022 10-08-2022 Episodic Open wounds of extremities (11 sources) Tear of skin; Translations: [Laceration without foreign body, right lower leg, initial encounter] Onset: 05-03-2023 Episodic Other aftercare (20 sources) Long-term current use of anticoagulant; Translations: [manager terminal (current) use of anticoagulants] Onset: 03-12-2022 10-08-2022 Episodic Other circulatory disease (20 sources) H/O: atrial fibrillation; Translations: [Personal history of other diseases of the circulatory system] Onset: 10-08-2022 10-08-2022 Episodic Other circulatory disease (1 source) Orthostatic hypotension; Translations: [Orthostasis] Onset: 07-23-2023 Episodic Other circulatory disease (1 source) Hypotension, unspecified; Translations: [Hypotension, unspecified hypotension type] Onset: 07-16-2023 Episodic Other injuries and conditions due to external causes (1 source) Unspecified multiple injuries, initial encounter; Translations: [Multiple abrasions] Onset: 07-16-2023 Episodic Other lower respiratory disease (19 sources) [...] source) Other amnesia; Translations: [Memory loss] Onset: 07-05-2023 Episodic Residual codes; unclassified (1 source) Personal history of other specified conditions; Translations: [History of syncope] Onset: 04-30-2023 Episodic Skin and subcutaneous tissue infections (20 sources) Cellulitis of right lower limb; Translations: [Cellulitis of right lower limb] Onset: 04-02-2022 Episodic Sprains and strains (20 sources) Sprain of hip; Translations: [Unspecified sprain of unspecified hip, initial encounter] Onset: 10-08-2022 10-08-2022 Episodic Syncope (20 sources) Syncope; Translations: [Syncope and collapse] Onset: 01-17-2022 02-21-2022 Episodic Thyroid disorders (6 sources) Disorder of thyroid gland; Translations: [Disorder of thyroid, unspecified] Onset: 02-20-2023 Episodic Results Test Name Value Interpretation Reference Range Facil ity Vital Signs Date Time Vital Sign Value Performing Clinician Kati raza 10-22-2023 11:20-0500 SaO2% (BldA) [Mass fraction] 97 % Ana Tucker PA-C Work Phone: [facility] 10-22-2023 11:14-0500 Body weight 105.33 kg Anaandrei Fentonwilla PA-C Work Phone: [facility] 10-22-2023 11:14-0500 Respiratory rate 16 /min Ana Fentonwilla PA-C Work Phone: [facility] 10-18-2023 09:43-0500 Body temperature 97.81 [degF] Martina Serrano GRAPHICS ARTIST.ALTERNATIVE ENERGY TECHNICIAN Work Phone: [facility] 10-18-2023 09:43-0500 Body weight 105.23 kg Martina Serrano GRAPHICS ARTIST.ALTERNATIVE ENERGY TECHNICIAN Work Phone: [facility] 10-18-2023 09:43-0500 Diastolic blood pressure 98 mm[Hg] Martina Serrano GRAPHICS ARTIST.ALTERNATIVE ENERGY TECHNICIAN Work Phone: [facility] 10-18-2023 09:43-0500 Heart rate 86 /min Martina Serrano GRAPHICS ARTIST.ALTERNATIVE ENERGY TECHNICIAN Work Phone: [facility] 10-18-2023 09:43-0500 Respiratory rate 18 /min Martina Serrano GRAPHICS ARTIST.ALTERNATIVE ENERGY TECHNICIAN Work Phone: [facility] 10-18-2023 09:43-0500 SaO2% (BldA) [Mass fraction] 97 % Martina Serrano GRAPHICS ARTIST.ALTERNATIVE ENERGY TECHNICIAN Work Phone: [facility] 10-18-2023 09:43-0500 Systolic blood pressure 167 mm[Hg] Martina Serrano GRAPHICS ARTIST.ALTERNATIVE ENERGY TECHNICIAN Work Phone: [facility] 10-10-2023 13:29-0500 Heart rate 75 /min Edwina Prebish GRAPHICS ARTIST.ALTERNATIVE ENERGY TECHNICIAN Work Phone: [facility] 10-10-2023 13:29-0500 Respiratory rate 16 /min Edwina Prebish GRAPHICS ARTIST.ALTERNATIVE ENERGY TECHNICIAN Work Phone: [facility] 10-10-2023 13:29-0500 SaO2% (BldA) [Mass fraction] 96 % Edwina Prebish GRAPHICS ARTIST.ALTERNATIVE ENERGY TECHNICIAN Work Phone: [facility] 08-21-2023 11:44-0500 Body height 165.1 cm Bal Denise MD Work Phone: [facility] 08-21-2023 11:44-0500 Body weight 105.51 kg Bal Denise MD Work Phone: [facility] 08-21-2023 11:44-0500 Diastolic blood pressure 76 mm[Hg] Bal Denise MD Work Phone: [facility] 08-21-2023 11:44-0500 Heart rate 65 /min Bal Denise MD Work Phone: [facility] 08-21-2023 11:44-0500 SaO2% (BldA) [Mass fraction] 95 % Bal Denise MD Work Phone: [facility] 08-21-2023 11:44-0500 Systolic blood pressure 124 mm[Hg] Bal Denise MD Work Phone: [facility] 08-02-2023 14:27-0500 Body weight 104.69 kg Bal Denise MD Work Phone: [facility] 08-02-2023 14:27-0500 Diastolic blood pressure 70 mm[Hg] Bal Denise MD Work Phone: [facility] 08-02-2023 14:27-0500 Heart rate 77 /min Bal Denise MD Work Phone: [facility] 08-02-2023 14:27-0500 Respiratory rate 18 /min Bal Denise MD Work Phone: [facility] 08-02-2023 14:27-0500 SaO2% (BldA) [Mass fraction] 94 % Bal Denise MD Work Phone: [facility] 08-02-2023 14:27-0500 Systolic blood pressure 106 mm[Hg] Bal Denise MD Work Phone: [facility] 07-26-2023 13:54-0500 Heart rate 85 /min Edwina Prebish GRAPHICS ARTIST.ALTERNATIVE ENERGY TECHNICIAN Work Phone: [facility] 07-26-2023 13:54-0500 Respiratory rate 20 /min Edwina Prebish GRAPHICS ARTIST.ALTERNATIVE ENERGY TECHNICIAN Work Phone: [facility] 07-26-2023 13:54-0500 SaO2% (BldA) [Mass fraction] 99 % Edwina Prebish GRAPHICS ARTIST.ALTERNATIVE ENERGY TECHNICIAN Work Phone: [facility] 07-23-2023 14:19-0500 Body height 165.1 cm Bal Denise MD Work Phone: [facility] 07-23-2023 14:19-0500 Body weight 106.59 kg Bal Denise MD Work Phone: [facility] 07-23-2023 14:19-0500 Diastolic blood pressure 83 mm[Hg] Bal Denise MD Work Phone: [facility] 07-23-2023 14:19-0500 Heart rate 70 /min Bal Denise MD Work Phone: [facility] 07-23-2023 14:19-0500 Systolic blood pressure 137 mm[Hg] Bal Denise MD Work Phone: [facility] 07-16-2023 10:04-0500 Body height 165.1 cm NA Davidson PA-C Work Phone: [facility] 07-16-2023 10:04-0500 Body weight 106.69 kg NA Davidson PA-C Work Phone: [facility] 07-16-2023 10:04-0500 Diastolic blood pressure 60 mm[Hg] NA Davidson PA-C Work Phone: [facility] 07-16-2023 10:04-0500 Heart rate 75 /min NA Davidson PA-C Work Phone: [facility] 07-16-2023 10:04-0500 SaO2% (BldA) [Mass fraction] 94 % NA Davidson PA-C Work Phone: [facility] 07-16-2023 10:04-0500 Systolic blood pressure 95 mm[Hg] NA Davidson PA-C Work Phone: [facility] 07-11-2023 16:46-0400 Body temperature 97.7 [degF] NA Davidson PA-C Work Phone: [facility] 07-11-2023 16:46-0400 Body weight 111.58 kg NA Davidson PA-C Work Phone: [facility] 07-11-2023 16:46-0400 Diastolic blood pressure 68 mm[Hg] NA Davidson PA-C Work Phone: [facility] 07-11-2023 16:46-0400 Heart rate 76 /min NA Davidson PA-C Work Phone: [facility] 07-11-2023 16:46-0400 Respiratory rate 16 /min NA Davidson PA-C Work Phone: [facility] 07-11-2023 16:46-0400 SaO2% (BldA) [Mass fraction] 96 % NA Davidson PA-C Work Phone: [facility] 07-11-2023 16:46-0400 Systolic blood pressure 130 mm[Hg] NA Davidson PA-C Work Phone: [facility] 06-18-2023 15:53-0400 Body weight 110.22 kg NA Davidson PA-C Work Phone: [facility] 06-18-2023 15:53-0400 Diastolic blood pressure 78 mm[Hg] NA Davidson PA-C Work Phone: [facility] 06-18-2023 15:53-0400 Heart rate 86 /min NA Davidson PA-C Work Phone: [facility] 06-18-2023 15:53-0400 Respiratory rate 16 /min NA Davidson PA-C Work Phone: [facility] 06-18-2023 15:53-0400 SaO2% (BldA) [Mass fraction] 98 % NA Davidson PA-C Work Phone: [facility] 06-18-2023 15:53-0400 Systolic blood pressure 120 mm[Hg] NA Davidson PA-C Work Phone: [facility] 06-14-2023 09:23-0400 Body weight 108.41 kg Lilly Gudino GRAPHICS ARTIST.ALTERNATIVE ENERGY TECHNICIAN Work Phone: [facility] 06-14-2023 09:23-0400 Diastolic blood pressure 74 mm[Hg] Lilly Gudino GRAPHICS ARTIST.ALTERNATIVE ENERGY TECHNICIAN Work Phone: [facility] 06-14-2023 09:23-0400 Heart rate 80 /min Lilly Gudino GRAPHICS ARTIST.ALTERNATIVE ENERGY TECHNICIAN Work Phone: [facility] 06-14-2023 09:23-0400 Respiratory rate 16 /min Lilly Gudino GRAPHICS ARTIST.ALTERNATIVE ENERGY TECHNICIAN Work Phone: [facility] 06-14-2023 09:23-0400 SaO2% (BldA) [Mass fraction] 98 % Lilly Gudino GRAPHICS ARTIST.ALTERNATIVE ENERGY TECHNICIAN Work Phone: [facility] 06-14-2023 09:23-0400 Systolic blood pressure 130 mm[Hg] Lilly Gudino GRAPHICS ARTIST.ALTERNATIVE ENERGY TECHNICIAN Work Phone: [facility] 05-20-2023 11:46-0400 Body height 165.1 cm Bal Denise MD Work Phone: [facility] 05-20-2023 11:46-0400 Body weight 110.22 kg Bal Denise MD Work Phone: [facility] 05-20-2023 11:46-0400 Diastolic blood pressure 72 mm[Hg] Bal Denise MD Work Phone: [facility] 05-20-2023 11:46-0400 Heart rate 77 /min Bal Denise MD Work Phone: [facility] 05-20-2023 11:46-0400 SaO2% (BldA) [Mass fraction] 97 % Bal Denise MD Work Phone: [facility] 05-20-2023 11:46-0400 Systolic blood pressure 116 mm[Hg] Bal Denise MD Work Phone: [facility] 04-30-2023 17:23-0400 Body temperature 97.7 [degF] Raymundo Dalal MD Work Phone: [facility] 04-30-2023 17:23-0400 Body weight 109.41 kg Raymundo Dalal MD Work Phone: [facility] 04-30-2023 17:23-0400 Diastolic blood pressure 68 mm[Hg] Raymundo Dalal MD Work Phone: [facility] 04-30-2023 17:23-0400 Heart rate 91 /min Raymundo Dalal MD Work Phone: [facility] 04-30-2023 17:23-0400 Respiratory rate 16 /min Raymundo Dalal MD Work Phone: [facility] 04-30-2023 17:23-0400 SaO2% (BldA) [Mass fraction] 96 % Raymundo Dalal MD Work Phone: [facility] 04-30-2023 17:23-0400 Systolic blood pressure 124 mm[Hg] Raymundo Dalal MD Work Phone: [facility] 04-30-2023 09:02-0400 Body temperature 97.81 [degF] Ana Tucker PA-C Work Phone: [facility] 04-30-2023 09:02-0400 Body weight 111.13 kg Ana Tucker PA-C Work Phone: [facility] 04-30-2023 09:02-0400 Diastolic blood pressure 90 mm[Hg] Ana Tucker PA-C Work Phone: [facility] 04-30-2023 09:02-0400 Heart rate 72 /min Ana Fentoner PA-C Work Phone: [facility] 04-30-2023 09:02-0400 Respiratory rate 16 /min Ana Fentoner PA-C Work Phone: [facility] 04-30-2023 09:02-0400 SaO2% (BldA) [Mass fraction] 97 % Ana Fentoner PA-C Work Phone: [facility] 04-30-2023 09:02-0400 Systolic blood pressure 142 mm[Hg] Ana Fentoner PA-C Work Phone: [facility] 04-12-2023 09:07-0400 Body weight 111.13 kg Bal Denise MD Work Phone: [facility] 04-12-2023 09:07-0400 Diastolic blood pressure 62 mm[Hg] Bal Denise MD Work Phone: [facility] 04-12-2023 09:07-0400 Heart rate 70 /min Bal Denise MD Work Phone: [facility] 04-12-2023 09:07-0400 SaO2% (BldA) [Mass fraction] 97 % Bal Denise MD Work Phone: [facility] 04-12-2023 09:07-0400 Systolic blood pressure 104 mm[Hg] Bal Denise MD Work Phone: [facility] 04-03-2023 11:41-0400 Body height 165.1 cm Bal Denise MD Work Phone: [facility] 04-03-2023 11:41-0400 Body weight 110.77 kg Bal Denise MD Work Phone: [facility] 04-03-2023 11:41-0400 Diastolic blood pressure 58 mm[Hg] Bal Denise MD Work Phone: [facility] 04-03-2023 11:41-0400 Heart rate 77 /min Bal Denise MD Work Phone: [facility] 07-26-2023 11:41-0400 SaO2% (BldA) [Mass fraction] 95 % Bal Denise MD Work Phone: [facility] 04-03-2023 11:41-0400 Systolic blood pressure 98 mm[Hg] Bal Denise MD Work Phone: [facility] 01-14-2023 14:24-0400 Body height 165.1 cm Bal Denise MD Work Phone: [facility] 01-14-2023 14:24-0400 Body weight 113.4 kg Bal Denise MD Work Phone: [facility] 01-14-2023 14:24-0400 Diastolic blood pressure 80 mm[Hg] Bal Denise MD Work Phone: [facility] 01-14-2023 14:24-0400 Heart rate 75 /min Bal Denise MD Work Phone: [facility] 01-14-2023 14:24-0400 SaO2% (BldA) [Mass fraction] 96 % Bal Denise MD Work Phone: [facility] 01-14-2023 14:24-0400 Systolic blood pressure 136 mm[Hg] Bal Denise MD Work Phone: [facility] 10-08-2022 08:11-0500 Body height 165.1 cm Bal Denise MD Work Phone: [facility] 10-08-2022 08:11-0500 Body temperature 97.81 [degF] Bal Denise MD Work Phone: [facility] 10-08-2022 08:11-0500 Body weight 108.86 kg Bal Denise MD Work Phone: [facility] 10-08-2022 08:11-0500 Diastolic blood pressure 66 mm[Hg] Bal Denise MD Work Phone: [facility] 10-08-2022 08:11-0500 Heart rate 71 /min Bal Denise MD Work Phone: [facility] 10-08-2022 08:11-0500 SaO2% (BldA) [Mass fraction] 98 % Bal Denise MD Work Phone: [facility] 10-08-2022 08:11-0500 Systolic blood pressure 110 mm[Hg] Bal Denise MD Work Phone: [facility] 07-18-2022 10:35-0500 Diastolic blood pressure 82 mm[Hg] Anastasiya Haagen GRAPHICS ARTIST.ALTERNATIVE ENERGY TECHNICIAN Work Phone: [facility] 07-18-2022 10:35-0500 Heart rate 83 /min Anastasiya Haagen GRAPHICS ARTIST.ALTERNATIVE ENERGY TECHNICIAN Work Phone: [facility] 07-18-2022 10:35-0500 Respiratory rate 18 /min Anastasiya Haagen GRAPHICS ARTIST.ALTERNATIVE ENERGY TECHNICIAN Work Phone: [facility] 07-18-2022 10:35-0500 SaO2% (BldA) [Mass fraction] 95 % Anastasiya Haagen GRAPHICS ARTIST.ALTERNATIVE ENERGY TECHNICIAN Work Phone: [facility] 07-18-2022 10:35-0500 Systolic blood pressure 110 mm[Hg] Anastasiya Haagen GRAPHICS ARTIST.ALTERNATIVE ENERGY TECHNICIAN Work Phone: [facility] 07-04-2022 09:43-0400 Diastolic blood pressure 82 mm[Hg] Anastasiya Haagen GRAPHICS ARTIST.ALTERNATIVE ENERGY TECHNICIAN Work Phone: [facility] 07-04-2022 09:43-0400 Heart rate 71 /min Anastasiya Haagen GRAPHICS ARTIST.ALTERNATIVE ENERGY TECHNICIAN Work Phone: [facility] 07-04-2022 09:43-0400 Respiratory rate 18 /min Anastasiya Haagen GRAPHICS ARTIST.ALTERNATIVE ENERGY TECHNICIAN Work Phone: [facility] 07-04-2022 09:43-0400 SaO2% (BldA) [Mass fraction] 94 % Anastasiya Haagen GRAPHICS ARTIST.ALTERNATIVE ENERGY TECHNICIAN Work Phone: [facility] 07-04-2022 09:43-0400 Systolic blood pressure 122 mm[Hg] Anastasiya Haagen GRAPHICS ARTIST.ALTERNATIVE ENERGY TECHNICIAN Work Phone: [facility] 06-27-2022 08:20-0400 Body weight 109.59 kg Bal Denise MD Work Phone: [facility] 06-27-2022 08:20-0400 Diastolic blood pressure 74 mm[Hg] Bla Denise MD Work Phone: [facility] 06-27-2022 08:20-0400 Heart rate 78 /min Bal Denise MD Work Phone: [facility] 06-27-2022 08:20-0400 Respiratory rate 16 /min Bal Denise MD Work Phone: [facility] 06-27-2022 08:20-0400 Systolic blood pressure 122 mm[Hg] Bal Denise MD Work Phone: [facility] 06-18-2022 19:00-0400 Body weight 107.96 kg Bal Denise MD Work Phone: [facility] 06-18-2022 19:00-0400 Diastolic blood pressure 82 mm[Hg] Bal Denise MD Work Phone: [facility] 06-18-2022 19:00-0400 Heart rate 88 /min Bal Denise MD Work Phone: [facility] 06-18-2022 19:00-0400 Systolic blood pressure 132 mm[Hg] Bal Denise MD Work Phone: [facility] 06-11-2022 17:39-0400 Body temperature 98.1 [degF] Vince Sheridan MD Work Phone: [facility] 06-11-2022 17:39-0400 Body weight 108.86 kg Vince Sheridan MD Work Phone: [facility] 06-11-2022 17:39-0400 Diastolic blood pressure 68 mm[Hg] Vince Sheridan MD Work Phone: [facility] 06-11-2022 17:39-0400 Heart rate 75 /min Vince Sheridan MD Work Phone: [facility] 06-11-2022 17:39-0400 Respiratory rate 21 /min Vince Sheridan MD Work Phone: [facility] 06-11-2022 17:39-0400 SaO2% (BldA) [Mass fraction] 98 % Vince Sheridan MD Work Phone: [facility] 06-11-2022 17:39-0400 Systolic blood pressure 100 mm[Hg] Vince Sheridan MD Work Phone: [facility] 03-19-2022 09:39-0400 Body temperature 98.1 [degF] Bal Denise MD Work Phone: [facility] 03-19-2022 09:39-0400 Body weight 111.68 kg Bal Denise MD Work Phone: [facility] 03-19-2022 09:39-0400 Diastolic blood pressure 72 mm[Hg] Bal Denise MD Work Phone: [facility] 03-19-2022 09:39-0400 Heart rate 61 /min Bal Denise MD Work Phone: [facility] 03-19-2022 09:39-0400 Respiratory rate 18 /min Bal Denise MD Work Phone: [facility] 03-19-2022 09:39-0400 SaO2% (BldA) [Mass fraction] 97 % Bal Denise MD Work Phone: [facility] 03-19-2022 09:39-0400 Systolic blood pressure 122 mm[Hg] Bal Denise MD Work Phone: [facility] 03-08-2022 09:25-0400 Heart rate 91 /min PREET MARTINEZ MD [facility] 03-08-2022 05:00-0400 Body temperature 100.58 [degF] PREET MARTINEZ MD [facility] 03-08-2022 05:00-0400 Diastolic blood pressure 57 mm[Hg] PREET MARTINEZ MD [facility] 03-08-2022 05:00-0400 Heart rate 81 /min PREET MARTINEZ MD [facility] 03-08-2022 05:00-0400 Mean blood pressure 74 mm[Hg] PREET MARTINEZ MD [address] [place] [address] 03-08-2022 05:00-0400 Reason For Taking VItal Signs PREET MARTINEZ MD [address] [place] [address] 03-08-2022 05:00-0400 Respiratory rate 18 /min PREET MARTINEZ MD [address] [place] [address] 03-08-2022 05:00-0400 Systolic blood pressure 108 mm[Hg] PREET MARTINEZ MD [address] [place] [address] 03-08-2022 04:00-0400 Heart rate 79 /min PREET MARTINEZ MD [address] [place] [address] 03-08-2022 00:22-0400 Respiratory rate 14 /min PREET MARTINEZ MD [address] [place] [address] 03-07-2022 22:23-0400 Respiratory rate 14 /min PREET MARTINEZ MD [address] [place] [address] 03-07-2022 20:35-0400 Body temperature 98.96 [degF] PREET MARTINEZ MD [address] [place] [address] 03-07-2022 20:35-0400 Diastolic blood pressure 68 mm[Hg] PREET MARTINEZ MD [address] [place] [address] 03-07-2022 20:35-0400 Mean blood pressure 83 mm[Hg] PREET MARTINEZ MD [address] [place] [address] 03-07-2022 20:35-0400 Systolic blood pressure 112 mm[Hg] PREET MARTINEZ MD [address] [place] [address] 03-07-2022 17:34-0400 Heart rate 77 /min PREET MARTINEZ MD [address] [place] [address] 03-07-2022 17:32-0400 Diastolic blood pressure 63 mm[Hg] PREET MARTINEZ MD [address] [place] [address] 03-07-2022 17:32-0400 Mean blood pressure 83 mm[Hg] PREET MARTINEZ MD [address] [place] [address] 03-07-2022 17:32-0400 Systolic blood pressure 123 mm[Hg] PREET MARTINEZ MD [address] [place] [address] 03-07-2022 13:05-0400 Diastolic Blood Pressure NBP 94 1 PREET MARTINEZ MD [address] [place] [address] 03-07-2022 13:05-0400 Reason For Taking VItal Signs PREET MARTINEZ MD [address] [place] [address] 03-07-2022 13:05-0400 Systolic Blood Pressure NBP 113 1 PREET MARTINEZ MD [address] [place] [address] 03-07-2022 12:45-0400 Diastolic Blood Pressure NBP 59 1 PREET MARTINEZ MD [address] [place] [address] 03-07-2022 12:45-0400 Systolic Blood Pressure NBP 114 1 PREET MARTINEZ MD [address] [place] [address] 03-07-2022 12:30-0400 Diastolic Blood Pressure NBP 73 1 PREET MARTINEZ MD [address] [place] [address] 03-07-2022 12:30-0400 Systolic Blood Pressure NBP 131 1 PREET MARTINEZ MD [address] [place] [address] 03-07-2022 11:25-0400 Body temperature 96.98 [degF] PREET MARTINEZ MD [address] [place] [address] 03-07-2022 10:55-0400 Body temperature 95.43 [degF] PREET MARTINEZ MD [address] [place] [address] 03-07-2022 10:50-0400 Body temperature 95.5 [degF] PREET MARTINEZ MD [address] [place] [address] 03-07-2022 10:45-0400 Body temperature 95.74 [degF] PREET MARTINEZ MD [address] [place] [address] 03-07-2022 06:17-0400 Body height 162.6 cm PREET MARTINEZ MD [address] [place] [address] 03-07-2022 06:17-0400 Body temperature 96.98 [degF] PREET MARTINEZ MD [facility] 03-07-2022 06:17-0400 Body weight 112.7 kg PREET MARTINEZ MD [address] [place] [address] 03-07-2022 06:17-0400 Body weight 42.63 kg/m2 PREET MARTINEZ MD [address] [place] [address] 03-07-2022 06:17-0400 diastolic 88 mm[Hg] PREET MARTINEZ MD [address] 03-07-2022 06:17-0400 Heart rate 65 /min PREET MARTINEZ MD [address] 03-07-2022 06:17-0400 systolic 134 mm[Hg] PREET MARTINEZ MD [address] 12-08-2021 09:12-0400 Body temperature 97.59 [degF] Bal Morales Jr., MD Work Phone: [facility] 12-08-2021 09:12-0400 Body weight 112.95 kg Bal Morales Jr., MD Work Phone: [facility] 12-08-2021 09:12-0400 Diastolic blood pressure 62 mm[Hg] Bal Morales Jr., MD Work Phone: [facility] 12-08-2021 09:12-0400 Heart rate 57 /min Bal Morales Jr., MD Work Phone: [facility] 12-08-2021 09:12-0400 Respiratory rate 18 /min Bal Morales Jr., MD Work Phone: [facility] 12-08-2021 09:12-0400 SaO2% (BldA) [Mass fraction] 99 % Bal Morales Jr., MD Work Phone: [facility] 12-08-2021 09:12-0400 Systolic blood pressure 110 mm[Hg] Bal Morales Jr., MD Work Phone: [facility] Encounters Encounter Date Encounter Type Care Provider Facility Start: 10-29-2023 ambulatory Anali Patrick RN Work Phone: [facility] Start: 10-29-2023 Follow-up encounter Anali Dajuan bhakta RN Work Phone: [facility] [employer] Procedures Date Procedure Procedure Detail Performing Clinician [...] P,Tdap,Td Vaccine (3 - Td or Tdap) [facility] Start: 06-18-2032 Urine microalbumin profile [facility] Start: 04-12-2028 Lipid 1996 panel - S june or Plasma Lipid Screening [facility] Start: 04-12-2028 LIPID SCREEN LIPID SCREEN [facility] Start: 09-05-2026 [facility] Start: 08-21-2026 [facility] Screening [facility] Start: 08-02-2026 Diabetes Screening [facility] Start: 07-23-2026 Diabetes Screening Diabetes Screenin g [facility] Start: 04-12-2026 DIABETES SCREEN DIABETES SCREEN [facility] Start: 04-12-2026 Diabetes Screening Diabetes Screenin g [facility] Start: 03-22-2026 LIPID SCREEN LIPID SCREEN [facility] Start: 01-15-2026 DIABETES SCREEN DIABETES SCREEN [facility] Start: 05-11-2025 DIABETES SCREEN DIABETES SCREEN [facility] Start: 03-19-2025 DIABETES SCREEN DIABETES SCREEN [facility] Start: 11-15-2024 Colonoscopy COLONOSCOPY [facility] Start: 11-15-2024 COLORECTAL CANCER SCREENING COLORECTAL CANCER SCREENING [facility] Start: 10-18-2024 Complete blood count Hemoglobin/Moises tocrit [facility] Start: 10-12-2024 DIABETES SCREEN DIABETES SCREEN [facility] Start: 09-05-2024 Annual PCP Team [employer] [facility] Disease Visit Annual PCP Team Chronic Disease Visit [facility] Start: 09-05-2024 Complete blood count Hemoglobin/Moises tocrit [facility] Start: 09-05-2024 Creatinine measurement Serum Creatin ine [facility] Start: 08-21-2024 Annual PCP Team [employer] [facility] Disease Visit Annual PCP Team Chronic Disease Visit [facility] Start: 08-21-2024 BP Controlled (<130/80) BP Controlle d (<130/80) [facility] Start: 08-02-2024 Annual PCP Team [employer] [facility] Disease Visit Annual PCP Team Chronic Disease Visit [facility] Start: 08-02-2024 BP Controlled (<130/80) BP Controlle d (<130/80) [facility] Start: 08-02-2024 Complete blood count Hemoglobin/Moises [facility] Start: 08-02-2024 Creatinine measurement Serum Creatin ine [facility] Start: 08-02-2024 Hemoglobin/Hematocrit Hemoglobin/Hem atocrit [facility] Start: 08-02-2024 Serum Creatinine Serum Creatinine [facility] Start: 07-23-2024 Annual PCP Team [employer] [facility] Disease Visit Annual PCP Team Chronic Disease Visit [facility] Start: 07-23-2024 Hemoglobin/Hematocrit Hemoglobin/Hem atocrit [facility] Start: 07-23-2024 Serum Creatinine Serum Creatinine [facility] Start: 07-16-2024 Annual PCP Team [employer] [facility] Disease Visit Annual PCP Team Chronic Disease Visit [facility] Start: 07-16-2024 BP Controlled (<130/80) BP Controlle d (<130/80) [facility] Start: 07-11-2024 Annual PCP Team [employer] [facility] Disease Visit Annual PCP Team Chronic Disease Visit [facility] Start: 06-18-2024 Annual PCP Team [employer] [facility] Disease Visit Annual PCP Team Chronic Disease Visit [facility] Start: 06-18-2024 BP Controlled (<130/80) BP Controlle d (<130/80) [facility] Start: 06-14-2024 Annual PCP Team [employer] [facility] Disease Visit Annual PCP Team Chronic Disease Visit [facility] Start: 05-27-2024 Covid-19 Vaccine (#1) Covid-19 Vacci ne (#1) [facility] Immunizations Immunization Date Immunization Notes Care Provider Fa maldonado 06-18-2022 tetanus toxoid, redu kamilah diphtheria toxoid, and acellular pertussis vaccine, adsorbed Bal Denise MD Work Phone: [facility] 10-06-2018 influenza virus vacc ine, unspecified formulation Bal Denise MD Work Phone: [facility] Payers Date Payer Category Payer Medicaid [employer] [facility] MEDICAID [id number] 2021-Present [phone] [address] [place] [address] Medicaid [id number] 2021 Medicaid [id number] 2021 Medicaid [id number] 2021 Medicaid [id number] 2017 Medicare [id number] 2017 Unknown ANTHEM BLUE [facility] AND BLUE [employer] ANTHEM MEDIBLUE O [id number] 2017-Present [phone] [address] [place] [address] O [id number] 2017 Unknown [id number] Social History Date Type Detail Facility Start: 08-23-2016 End: 05-23-2022 Tobacco smoking status NHIS Never smoked tobacco [facility] Work Phone: Start: 08-23-2016 End: 05-23-2022 Tobacco use and exposure Smokeless tobacco non-user [facility] Work Phone: Start: 10-26-2021 End: 10-22-2023 Alcohol intake Current non-drinker of alcohol (finding) [facility] Start: 1945 Sex Assigned At Not on file [facility] Start: 11-28-2021 End: 06-27-2022 Exposure to SARS-CoV-2 (event) Not sure [facility] Start: 1945 Sex Assigned At Female [facility] Start: 03-03-2022 End: 03-13-2022 Exposure to SARS-CoV-2 (event) Unable to assess [facility] Work Phone: Start: 02-18-2023 History SDOH Food Worry 1 [facility] Start: 02-18-2023 History SDOH [facility] Start: 02-20-2023 End: 04-02-2023 History of Social function [facility] Work Phone: Start: 02-20-2023 End: 04-02-2023 Tobacco use panel [facility] Work Phone: (I/We) worried wheth er (my/our) food would run out before (I/we) got money to buy more. Never true [facility] Work Phone: In the past 12 month s, has lack of transportation kept you from medical appointments or from getting medications? No [facility] Work Phone: Start: 01-10-2022 Gender identity Identifies as female gender (finding) [facility] Goals Date Patient Goal Desired Activity /State Personal health goal Personal health goal Functional Status Date Assessment Result Facility 03-08-2022 Functional Status Identified as high risk, Fall ID band on, Room located near nursing station, Bed alert on, Door open, Non-Slip footwear, Alarm activated & functional [facility] 03-08-2022 Functional Status [facility] 03-07-2022 Functional Status [facility] 03-07-2022 Functional Status [facility] 03-07-2022 Functional Status Identification band, Verbal [facility] 03-07-2022 Functional Status [facility] 03-07-2022 [facility] Status Date Assessment Result Facility 03-08-2022 Mental Status [facility] 03-07-2022 [facility] 03-07[facility]22 [facility] Clinical Notes 09-15-2019 to 10-29-2023 Anali Patrick RN - 10/29/2023 12:03 PM Anali Mims RN - 10/28/2023 12:59 PM ESTTelephone Encounter - Bal Denise MD - 10/22/2023 1:56 PM ESTPatient InstructionsPatient Instructions Note Date & Type Note Facility 10-29-2023 Note [facility] 10-29-2023 History of Present illness Narrative [facility] Telephonic Outreach Provider Action/FYI Contacted for: Routine Telephonic Outreach Contact made with patient: No, left message. Anali Patrick RN October 29, 2023 12:05 PM documented in this encounter [facility] 10-28-2023 Note [facility] 10-28-2023 History of Present illness Narrative [facility] Telephonic Outreach Provider Action/FYI Contacted for: Routine Telephonic Outreach Contact made with patient: No, left message. Anali Patrick RN October 28, 2023 1:00 PM documented in this encounter [facility] 10-22-2023 Miscellaneous Notes New refill sent Patient presented to Neurology for follow up appointment. Nitroglycerin Rx 12/18/2017, qty 25 w/ 1 r/f. Last OV Rosa Lua 09/05/2023. Last OV Dr. Denise 08/21/2023 Next OV 12/09/2023. Ronny De Souza LPN documented in this encounter [facility] 10-22-2023 Note HNO ID: [id number] Author: RONNY DE SOUZA LPN Service: ? Author Type: LICENSED NURSE Type: Progress Notes Filed: 10/22/2023 12:25 Note Text: [facility] 10-22-2023 Note [facility] 10-22-2023 Instructions Ana Tucker PA-C - 10/22/2023 11:45 AM EST Increase water intake to at least 60 ounces a day Increase brain exercises and physical activity Compression socks and slow transitions from sitting to standing Follow up in three months 1. The [facility] is called [facility]. Their website is www.FoodyDirectd.Xigen, and phone number is [phone]. Their Aging and Disability Resource Center phone number is [phone]. 2. The Alzheimer's Association website has plenty of information about resources, what to expect, and tons of other information. Their website is https://www.alz.org/ and their help line is 074-222-2567. Their local website is IBillionaire.[email or web address]/zamora, and local phone number is [phone]; 3. The [employer] of [place] also has a website with plenty of information, advice, and a help line: https://alzfdn.org/ and 796-026-8589 4. [facility] [place] (web site: Caregiver.org) [employer]-- a secure online solution for quality information, support, and resources for family caregivers. Contact: Toll-free number: [phone] 5. Alzheimers.gov. Find Alzheimer disease and related dementias information, resources, research and more documented in this encounter [facility] 10-22-2023 History of Present illness Narrative ESTABLISHED PATIENT VISIT Last visit: 04/30/23 ASSESSMENT/PLAN: 1. Vertigo - ICD9: 780.4, ICD10: [...] symptoms change or worsen. Ana Tucker PA-C CHIEF COMPLAINT: follow up HISTORY OF PRESENT ILLNESS: Tanya Sanchez is a 78 year old female, There were no vitals taken for this visit. with a PMH significant for atrial fibrillation, HLD, HTN, CKD stage 3, BPV, GERD, fatty liver, hypothyroidism, anemia, depression, syncope, dementia. Seen 04/30/23 for dizziness, previously Melvina's patient. Unable to describe the dizziness and unsure how often it happens. Had VT in the past with good results. Daughter reporting a few falls but last was over a year ago. Some memory worsening. Has daily visitors and life alert. Ordered VT and repeat MRI, patient deferring any memory testing or medication. Patient with severe depression as well. Ordered audiology testing and labs. Labs were normal and MRI showed hippocampus in the 1st percentile. Patient presents for follow-up with her daughters who provide most of the history. Since last visit in April, patient's memory continues to decline. Patient lives alone and daughters are very concerned about this. Notes that she has had a few falls since last appointment, the last was late September where she fell from dizziness, blacked out and was found on the ground. Did go to the emergency department the next day with negative CT the brain at [facility]. Patient reports her falls are secondary to dizziness but has difficulty describing the dizziness. Did also send to vestibular therapy and family is unsure if this was helpful for her as it was so long ago. Patient does not drink much water throughout the day, mostly drinks 2 small pots of coffee. No new symptoms or concerns other than noted above. Not very physically active, mostly watches TV all day. Does note that she has good sleep, sleeps uninterrupted throughout the night. However, daughter notes that occasionally she will call out at night. REVIEW OF SYSTEMS GENERAL:No weight loss, malaise [...] patient's last visit have been reviewed. MRI brain 07/05/23 IMPRESSION: * No evidence of an acute intracranial process or intracranial mass. * Moderate generalized volume loss. * Hippocampal volumes at the first percentile when compared to age matched normal controls by quantitative analysis. * Moderate white matter disease which is nonspecific but likely reflective of chronic microvascular ischemia. * No evidence of parenchymal microhemorrhages by MRI. MEDICATIONS: budesonide, enteric coated (ENTOCORT EC) 3 mg 24 hr capsule Take 3 capsules by mouth once daily. apixaban (ELIQUIS) 5 mg tab(s) Take 1 tablet by mouth two times a day. traMADol (ULTRAM) 50 mg tablet Take 1 tablet by mouth at bedtime as needed for pain (on as needed for severe pain) for up to 30 days. sertraline (ZOLOFT) 100 mg tablet Take 1 tablet by mouth once daily. aspirin 81 mg chewable tablet Take 1 tablet by mouth once daily. CIPROFLOXACIN HCL ORAL Take 500 mg by mouth two times a day. ferrous sulfate 325 mg (65 mg iron) tablet Take 1 tablet by mouth two times a day with meals. pantoprazole DR (PROTONIX) 40 mg tablet Take 1 tablet by mouth two times a day. levothyroxine (SYNTHROID) 100 mcg tablet Take 1 tablet by mouth daily before breakfast. For thyroid. busPIRone (BUSPAR) 5 mg tablet Take 1 tablet by mouth three times daily. MELATONIN ORAL Take 10 mg by mouth. atorvastatin (LIPITOR) 20 mg tablet Take 1 tablet by mouth once daily. For cholesterol. nitroglycerin sublingual (NITROQUICK) 0.4 mg SL tablet Dissolve 1 tablet under the tongue every 5 minutes as needed. HISTORIES PAST MEDICAL HISTORY Diagnosis Date Alzheimer's dementia without behavioral disturbance (HCC) Atrial fibrillation (HCC) Benign paroxysmal positional vertigo Dermatitis GERD (gastroesophageal reflux disease) Hypothyroidism Pseudoseizures Stage 3a chronic kidney disease (CKD) (HCC) Thyroid condition FAMILY HISTORY Adopted: Yes Problem Relation Age of Onset other (gay) Father SOCIAL HISTORY Social History Tobacco Use Smoking status: Never Smokeless tobacco: Never Vaping Use Vaping Use: Never used Substance Use Topics Alcohol use: No Drug use: No PHYSICAL EXAMINATION 10/22/23 1114 10/22/23 1120 Orthostatic BP: 174/97 147/94 Orthostatic Pulse: 77 82 Resp: 16 SpO2: 96% 97% Weight: 105.3 kg (232 lb 3.2 oz) GENERAL EXAM: MoCA: 08/02 Visuospatial: Deferred Namin/3 Attention: 2 Language: 09/11 Abstraction: 2 Delayed recall: 0 Orientation: 02/12 Patient only with fourth grade education, extra point was added. General appearance: NAD, pleasant. HEENT: NC/AT, nasal congestion absent, no oral lesions, membranes moist. NECK: No masses, supple. Lungs: Breathing comfortably Extr: Moves all extremities without difficulty Skin: Multiple abrasions in the lower legs in various stages of healing. Mild erythema around the right lower extremity, lesion at the mid tib-fib but without any significant warmth. NEUROLOGICAL EXAM: General: Awake, alert, oriented x3 (person,place,time), speech fluent, no dysarthria; comprehension, naming, repetition intact. See MoCA above CN: PERRL, EOMI and without nystagmus, VFF to confrontation, facial sensation and strength are normal and symmetric, hearing is intact to finger rub bilaterally, palate and tongue movements are intact and symmetric. SCM and trapezius strength normal. Motor: Normal tone, bulk and strength (5/5) bilaterally (throughout extremities x4). Reflexes: 2/4 and symmetric Coordination: No tremors. Sensation: Absent sensation to right lower leg to temperature and decreased in the left lower extremity as well. Decreased vibration throughout lower extremities equally and improving proximally. Gait: Guarded Assessment and Plan: ASSESSMENT/PLAN: 1. Alzheimer's dementia without behavioral disturbance (HCC) - ICD9: 331.0, 294.10, ICD10: G30.9, F02.80 (primary diagnosis) 2. Dementia without behavioral disturbance (HCC) - ICD9: 294.20, ICD10: F03.90 Patient with continued memory issues, deferred any MoCA or memory testing at last appointment but today patient scored an 11/24. MRI of the brain with hippocampus in the 1st percentile concerning for neurodegenerative process like Alzheimer's disease. Patient deferring any medications at this time. Discussed conservative therapies at length with patient and family as patient does not drink much water is not very physically active and mostly watches TV throughout the day. Will continue to monitor. However, concern over patient's safety as she has had multiple falls. Is not driving. Discussed my concerns at length with patient's daughter and she is working with social work to arrange for better living situation for the patient. Patient does have life alert but does not wear it frequently. Encouraged frequent visits and phone calls, patient's daughter stated possibly installing cameras in the house to ensure she is okay throughout the day. Resources were given to patient and family. 3. Neuropathy - ICD9: 355.9, ICD10: G62.9 4. Orthostatic hypotension - ICD9: 458.0, ICD10: I95.1 Patient with multiple falls, family reporting dizziness and blacking out. Patient lives alone and falls are mostly unwitnessed. Orthostatics in the office today were positive orthostatic hypotension. Patient also with signs of neuropathy in her feet and family and patient report that she does not drink water throughout the day, primarily caffeinated beverages. Feels at this time that her dizziness is likely orthostatic hypotension due to dehydration and possible neurogenic cause with neuropathy. Deferring any EMG or further workup at this time, recent B12 was negative. Encouraged increased water intake, slow transitions from sitting to standing, increase physical activity as well as compression socks. Patient and family agree and understand. Patient and family are agreeable to treatment plan of care at this time, all questions were answered. Patient to follow-up in 3 months or sooner should any symptoms change or worsen. Ana Tucker PA-C I spent a total of 45 minutes on the date of the service which included preparing to see the patient, [id number] patient care, completing clinical documentation, obtaining and/or reviewing separately obtained history, performing a medically appropriate examination, and counseling and educating the patient/family/caregiver. This document has been created with the use of voice recognition technology. It may contain inaccuracies: (e.g. misspellings, inaccurate syntax or word sense) that have escaped review. documented in this encounter [facility] 10-21-2023 Miscellaneous Notes [facility] calling daughter had called them wants medications going to [facility]. Most all were transferred except these two. Pending to file. Please advise ] Patient has been identified by name and date of : Pharmacy phones for refill(s): Requested Prescriptions Pending Prescriptions Disp Refills budesonide, enteric coated (ENTOCORT EC) 3 mg 24 hr capsule 90 capsule 5 Sig: Take 3 capsules by mouth once daily. apixaban (ELIQUIS) 5 mg tab(s) 60 tablet 5 Sig: Take 1 tablet by mouth two times a day. Date of last office visit in primary care: 09/05/2023 Date of next office visit in primary care: 12/09/2023 Please advise. Thank you. Shanique Bell LPN. documented in this encounter [facility] 10-18-2023 Miscellaneous Notes CBC normal INR normal Daughter made aware. Patient to follow up with PCP documented in this encounter [facility] 10-18-2023 Note [facility] 10-18-2023 History of Present illness Narrative This note was created using dinCloudriter. Subjective Tayna Sanchez is a 78 year old female. 78 year old female with PMH CAD, afib (on Eliquis), hyperlipidemia, HTN presents for nose bleed. Acute onset yesterday Bilateral nares + clots and all sorts of blood She denies that she had trauma to the nose or blowing with onset. Denies accompanying URI sx At present patient denies nasal bleeding Denies dizziness Denies SOB or CP History of epistaxis in the past Is on Eliquis Accompanied by friend just wanted to get her checked out The history is provided by the patient and a friend. No foreign languages professor was used. Epistaxis This is a new problem. The current episode started yesterday. Episode frequency: a few times. The problem has been resolved. The problem is associated with anticoagulants. The bleeding has been from both nares. She has tried applying pressure for the symptoms. The treatment provided significant relief. Her past medical history is significant for frequent nosebleeds. Her past medical history does not include bleeding disorder, colds, sinus problems, allergies or nose-picking. PAST MEDICAL HISTORY Diagnosis Date Alzheimer's dementia [...] bypass two ALLERGIES Novocain [Procaine Hcl] MEDICATIONS traMADol (ULTRAM) 50 mg tablet Take 1 tablet by mouth at bedtime as needed for pain (on as needed for severe pain) for up to 30 days. sertraline (ZOLOFT) 100 mg tablet Take 1 tablet by mouth once daily. aspirin 81 mg chewable tablet Take 1 tablet by mouth once daily. CIPROFLOXACIN HCL ORAL Take 500 mg by mouth two times a day. ferrous sulfate 325 mg (65 mg iron) tablet Take 1 tablet by mouth two times a day with meals. pantoprazole DR (PROTONIX) 40 mg tablet Take 1 tablet by mouth two times a day. levothyroxine (SYNTHROID) 100 mcg tablet Take 1 tablet by mouth daily before breakfast. For thyroid. budesonide, enteric coated (ENTOCORT EC) 3 mg 24 hr capsule Take 3 capsules by mouth once daily. apixaban (ELIQUIS) 5 mg tab(s) Take 1 tablet by mouth twice daily. busPIRone (BUSPAR) 5 mg tablet Take 1 tablet by mouth three times daily. MELATONIN ORAL Take 10 mg by mouth. atorvastatin (LIPITOR) 20 mg tablet Take 1 tablet by mouth once daily. For cholesterol. nitroglycerin sublingual (NITROQUICK) 0.4 mg SL tablet Dissolve 1 tablet under the tongue every 5 minutes as needed. FAMILY HISTORY Adopted: Yes Problem Relation Age of Onset other (alcholoism) Father Social History Tobacco Use Smoking status: Never Smokeless tobacco: Never Vaping Use Vaping Use: Never used Substance Use Topics Alcohol use: No Drug use: No Review of Systems Constitutional: Negative for activity change, appetite change, fatigue and fever. HENT: Positive for nosebleeds. Negative for congestion, dental problem, drooling, sinus pressure, sneezing and sore throat. Eyes: Negative for pain, discharge, redness and itching. Respiratory: Negative for apnea, choking and chest tightness. Cardiovascular: Negative for chest pain, palpitations and leg swelling. Gastrointestinal: Negative for abdominal pain, diarrhea, nausea and vomiting. Skin: Negative for color change, pallor, rash and wound. Allergic/Immunologic: Negative for environmental allergies, food allergies and immunocompromised state. Neurological: Negative for dizziness, facial asymmetry, light-headedness and headaches. Hematological: Negative for adenopathy. Does not bruise/bleed easily. Psychiatric/Behavioral: Negative for agitation and behavioral problems. Objective BP 167/98 Pulse 86 Temp 36.6 C (97.8 F) Resp 18 Wt 105.2 kg (232 lb) SpO2 97% BMI 38.61 kg/m Physical Exam Vitals and nursing note reviewed. Constitutional: General: She is not in acute distress. Appearance: Normal appearance. She is obese. She is not ill-appearing, toxic-appearing or diaphoretic. Comments: Elderly appearing Clothes with dried blood HENT: Head: Normocephalic and atraumatic. Right Ear: Ear canal and external ear normal. Left Ear: Ear canal and external ear normal. Nose: No congestion or rhinorrhea. Comments: Bilateral nares with dried blood No active bleeding No masses in anterior nose noted Mouth/Throat: Mouth: Mucous membranes are moist. Pharynx: No oropharyngeal exudate or posterior oropharyngeal erythema. Eyes: General: Right eye: No discharge. Left eye: No discharge. Extraocular Movements: Extraocular movements intact. Conjunctiva/sclera: Conjunctivae normal. Pupils: Pupils are equal, round, and reactive to light. Cardiovascular: Rate and Rhythm: Normal rate and regular rhythm. Pulses: Normal pulses. Heart sounds: Normal heart sounds. No murmur heard. No friction rub. Pulmonary: Effort: Pulmonary effort is normal. No respiratory distress. Breath sounds: Normal breath sounds. No stridor. No wheezing, rhonchi or rales. Chest: Chest wall: No tenderness. Abdominal: General: Abdomen is flat. There is no distension. Palpations: Abdomen is soft. There is no mass. Tenderness: There is no abdominal tenderness. There is no right CVA tenderness, left CVA tenderness, guarding or rebound. Hernia: No hernia is present. Musculoskeletal: General: No swelling, tenderness, deformity or signs of injury. Normal range of motion. Cervical back: Normal range of motion and neck supple. No rigidity. Right lower leg: No edema. Left lower leg: No edema. Lymphadenopathy: Cervical: No cervical adenopathy. Skin: General: Skin is warm and dry. Coloration: Skin is not jaundiced or pale. Findings: No bruising, erythema, lesion or rash. Neurological: General: No focal deficit present. Mental Status: She is alert and oriented to person, place, and time. Cranial Nerves: No cranial nerve deficit. Sensory: No sensory deficit. Motor: No weakness. Coordination: Coordination normal. Gait: Gait normal. Psychiatric: Mood and Affect: Mood normal. Behavior: Behavior normal. Thought Content: Thought content normal. Judgment: Judgment normal. Assessment and Plan ASSESSMENT/PLAN: 1. Epistaxis - ICD9: 784.7, ICD10: R04.0 (primary diagnosis) Yesterday Has since resolved. NO active bleeding Patient is on Eliquis Will check CBC and PT/INR Discussed red flags - CBC + DIFF - PROTHROMBIN TIME/PT Will obtain labs today Will notify with results 2. Current use of mcfp anticoagulation - ICD9: V58.61, ICD10: Z79.01 - CBC + DIFF - PROTHROMBIN TIME/PT Martina Serrano APRN.ALTERNATIVE ENERGY TECHNICIAN documented in this encounter [facility] 10-18-2023 Miscellaneous Notes [facility] OUTREACH Provider Action/FYI: The patient's daughter declined an MD appointment for today, instead will take the patient to the [facility]. Rosario, you've reached [facility], my name is Lucia Ulloa RN, I'm a registered nurse, and we are on a recorded line. Patient identified by name and date of Spoke with daughter Verify that the patient is a [facility] patient: Yes Are you having any symptoms today? Yes - Go to [facility] Protocol Symptoms present: Nosebleeds Based on what you've told me, I do recommend that you: Managed by H@H RN Do you understand my recommendations? (After patient verifies understanding) If you develop any new symptoms, your condition worsens, then GO TO THE EMERGENCY ROOM OR CALL 911. If you have any questions, please call us back. Reason for Call: Patient has been having intermittent nosebleeds since yesterday, but has not been applying direct pressure. She had a nosebleed this morning that soaked 3 wet wipes and last about 30 minutes. She takes Eliquis. Outcome: Recommended that the patient be seen within 24 hours and explained to the patient's daughter the correct way of applying direct pressure to the nose. The daughter declines a MD appointment today. She will take the patient to the [facility] today. Reason for Disposition Taking Coumadin (warfarin) or other strong blood thinner, or known bleeding disorder (e.g., thrombocytopenia) Answer Assessment - Initial Assessment Questions 1. AMOUNT OF BLEEDING: stuffed tissue into her nostrils during the night, when she removed them this morning, the bleeding started again and she was spitting out blood clots. Her daughter states she has soaked 3 wet wipes in the pat 30 minutes, but the patient has not been applying pressure to her nose as instructed.. 2. ONSET:sometime yesterday 3. FREQUENCY:starting and stopping over the past 24 hours 4. RECURRENT SYMPTOMS: Her daughter isn't sure if she has had other recent nosebleeds. 5. CAUSE: unknown, no injury, but she has electric heat and the air is very dry in her home. 6. LOCAL FACTORS: none 7. SYSTEMIC FACTORS: Had cardiac bypass surgery in the past 8. BLOOD THINNERS: takes Eliquis 9. OTHER SYMPTOMS: none By the end of the call, the nosebleed had stopped. Protocols used: [id number] documented in this encounter [facility] 10-10-2023 Note HNO ID: [id number] Author: MARY LU MA Service: ? Author Type: Obstetrical Anesthesiologist Type: Progress Notes Filed: 10/10/2023 16:16 Note Text: Review of Systems Constitutional: Negative for activity change, chills, fever and unexpected weight change. Gastrointestinal: Negative for bowel retention or incontinence Genitourinary: Negative for difficulty urinating. Negative for bladder retention or incontinence Musculoskeletal: Positive for arthralgias, back pain, gait problem, joint swelling and myalgias. Negative for neck pain and neck stiffness. Neurological: Positive for headaches. Negative for weakness and numbness. Psychiatric/Behavioral: Positive for dysphoric mood. Negative for sleep disturbance and suicidal ideas. The patient is nervous/anxious. [facility] 10-10-2023 Note HNO ID: [id number] Author: EDWINA OROSCO APRN.RAYNE Service: ? Author Type: Nurse Practitioner Type: Progress Notes Filed: 10/10/2023 16:16 Note Text: [facility] Today's Date: 10/10/2023 Last Visit: N/A Name: Tanya Sanchez : [...] is taking approximately 1 tramadol per day. Patient reports she fell the other day. Patient stating that she has bruising up and down. States that she does not think it is associated with the tramadol as it was later in the day. Patient stating she is seeing a neurologist within the next couple weeks regarding her fall. Patient continues to live independently with the assistance of family but they are not there full-time patient does have a life alert button but she did not have a time. Patient did go to the emergency room and was told there is nothing they can do there is nothing fractured. MEDICATIONS Taken TO DATE (for the chief [...] Risk Tool - Completed Date 07/26/2023 - No question data found. (All drug screens are appropriate unless indicated [...] is helping with her explanation of pain. Patient Education, Compliance and Clinic Giorgio (more content not included)... [facility] 10-10-2023 History of Present illness Narrative Review of Systems Constitutional: Negative for activity change, chills, fever and unexpected weight change. Gastrointestinal: Negative for bowel retention or incontinence Genitourinary: Negative for difficulty urinating. Negative for bladder retention or incontinence Musculoskeletal: Positive for arthralgias, back pain, gait problem, joint swelling and myalgias. Negative for neck pain and neck stiffness. Neurological: Positive for headaches. Negative for weakness and numbness. Psychiatric/Behavioral: Positive for dysphoric mood. Negative for sleep disturbance and suicidal ideas. The patient is nervous/anxious. Images from the original note were not included. [facility] Today's Date: 10/10/2023 Last Visit: N/A Name: Tanya Sanchez : [...] is taking approximately 1 tramadol per day. Patient reports she fell the other day. Patient stating that she has bruising up and down. States that she does not think it is associated with the tramadol as it was later in the day. Patient stating she is seeing a neurologist within the next couple weeks regarding her fall. Patient continues to live independently with the assistance of family but they are not there full-time patient does have a life alert button but she did not have a time. Patient did go to the emergency room and was told there is nothing they can do there is nothing fractured. MEDICATIONS Taken TO DATE (for the chief [...] Risk Tool - Completed Date 07/26/2023 - No question data found. (All drug screens are appropriate unless indicated [...] is helping with her explanation of pain. Patient Education, Compliance and Clinic Policies Reviewed and/or Discussed Today: None Notable Events During Course of Treatment: Treatment History: PAIN PROCEDURES: DATE PROCEDURE IMPROVEMENT [...] Comments Blood pressure rises INTAKE PAIN ASSESSMENT 09/06/2023 10/10/2023 Are you having pain associated with your visit today? Yes, Provider notified Yes, Provider notified Pain Scales Verbal (Numeric Rating or Visual Analog Scale) Verbal (Numeric Rating or Visual Analog Scale) Pain Level 0 5 Pain Location Back Back-Lower Description - Sharp;Sore;Radiating;Aching Duration Amount of Time - - Duration Units Years Years Frequency Intermittent Continuous Intervention/Comfort measure Medication;Reposition;Relaxation Reposition;Relaxation;Positioning Comments - - Pain Assessment - - Compliance: PDMP website checked and validated on 10/10/2023 by Edwina Orosco APRN.ALTERNATIVE ENERGY TECHNICIAN All prescriptions have been APPROPRIATELY filled. No suspicious activity was identified. Recent Drug screens: AG SPINE COMBINATION 07/26/2023 09/06/2023 Questionnaire GREENLIGHT - Completed Date 07/26/2023 - Questionnaire - URINE DRUG SCREEN Completed Date - 09/06/2023 Comments - STARTED NEW MED Questionnaire - NA/OIC Completed Date - 09/06/2023 Comments - SIGNED BY POA Questionnaire Opiod Risk Tool - Completed Date 07/26/2023 - No question data found. (All drug screens are appropriate unless indicated [...] fracture. Degenerative disease of the lumbar spine. Bereavement Counselor: PSCB Transcribe Date/Time: Jul 16 2023 11:28A Dictated [...] Radiology, Oru In Impression IMPRESSION: Degenerative changes Bereavement Counselor: [facility] Transcribe Date/Time: Jun 22 2023 7:24A Dictated [...] Labs: Creatinine Date Value Ref Range Status 09/05/2023 1.21 (H) 0.58 - 0.96 mg/dL Final No results found for: EGFR No results found for: PCGLUCOSE WBC Date Value Ref Range Status 09/05/2023 7.25 3.70 - 11.00 k/uL Final Hemoglobin Date Value Ref Range Status 09/05/2023 14.1 11.5 - 15.5 g/dL Final Hematocrit Date Value Ref Range Status 09/05/2023 42.9 36.0 - 46.0 % Final Platelet Count Date Value Ref Range Status 09/05/2023 229 150 - 400 k/uL Final Current Medications, Past Medical History, Past Surgical History, Family History, Social History and Review of Systems: On today's date, noted above, I have confirmed and edited as necessary, the PFSH and ROS obtained by others. Physical Exam: 10/10/23 1329 Pulse: 75 Resp: 16 SpO2: 96% Physical Exam Vitals reviewed. Constitutional: General: She [...] of Low back pain. Patient stating that the tramadol is helping with the pain. It was discussed with the patient and her daughter the risk of the tramadol potentially causing the fall even though she is on a low-dose. Patient is going to see the neurologist. Diagnoses: (M54.42, M54.41, G89.29) Chronic bilateral low back pain with bilateral sciatica PLAN: Tanya Sanchez would benefit from the following to reach personal goals for decreasing pain, improving function and work participation, and/or improving quality of life: Medications: Requested Prescriptions Signed Prescriptions Disp Refills traMADol (ULTRAM) 50 mg tablet 30 tablet 0 Sig: Take 1 tablet by mouth at bedtime as needed for pain (on as needed for severe pain) for up to 30 days. Uds was reviewed, pt appears compliant Interventional Procedures: NONE Studies: none Functional Muslim: NONE Referrals: No additional considerations at present Follow-up: 1 month Depending on response to the above plan, [...] decision making from today's date. Edwina Orosco APRN.RAYNE Pain Management [facility] documented in this encounter [facility] 10-01-2023 Note [facility] 09-20-2023 Note HNO ID: [id number] Author: BAL DENISE MD Service: ? Author Type: Physician Type: Progress Notes Filed: 09/20/2023 13:49 Note Text: sent [facility] 09-20-2023 Note [facility] 09-06-2023 Note HNO ID: [id number] Author: Dee hSah LPN Service: ? Author Type: LICENSED NURSE [...] suicidal ideas. The patient is not nervous/anxious. [facility] 09-05-2023 Note HNO ID: [id number] Author: Edwina Orosco APRN.CNP Service: ? Author Type: Nurse Practitioner Type: Progress Notes Filed: 09/06/2023 3:03 PM Note Text: [facility] Today's Date: 09/06/2023 Last Visit: N/A [...] her daughter is (more content not included)... [facility] 09-05-2023 Note [facility] 08-27-2023 Note [facility] 08-21-2023 Note [facility] 08-21-2023 Miscellaneous Notes Patient here for appointment today. Commode, shower chair and wheelchair discussed. Orders, notes and demo faxed to number below. Patient and daughter who was here with her aware. Shazia Marie Printed. Fax received from [facility] Requesting bedside commode and shower chair. Fax rx and and face to face notes to [phone] ATTN: Slade Jarrett documented in this encounter [facility] 08-21-2023 History of Present illness Narrative Patient [...] See previous ov: Was admitted again to [facility] for new issue. Had uti and possible [...] ACCESSORY, NOS 2. Coronary artery disease involving [place]op[place] coronary artery of [place] heart without angina pectoris - ICD9: 414.01, ICD10: I25.10 - doing well - DME SUPPLY OR ACCESSORY, NOS 3. Paroxysmal atrial fibrillation (HCC) - ICD9: 427.31, ICD10: I48.0 - stable. 4. Essential hypertension - ICD9: 401.9, ICD10: I10 - Controlled 5. History of atrial fibrillation - ICD9: V12.59, ICD10: Z86.79 - stable. Bal Denise MD documented in this encounter [facility] 08-07-2023 Note [facility] 08-07-2023 History of Present illness Narrative CDM [...] daily weight at home? No Based on vp respiratory, the following disposition is advised: No symptoms or symptoms present, not severe. Routed to: No Action Needed TERESA Education Provided this Outreach: No Spoke with patient's daughter Toño. Per her account, patient is doing well. No urinary concerns. Ambulating with rollator. Toño drives patient to all of her appts. She denies needs or concerns at this time and agrees to contact pcp with changes. Dominga Dunn RN August 07, 2023 1:53 PM documented in this encounter [facility] 08-05-2023 Miscellaneous Notes Daughter Toño informed and verbalized understanding. Shazia Marie Labs are ok. Other than sugar is up. Watch carbs in diet. Recheck a1c in two weeks. documented in this encounter [facility] 08-02-2023 Note [facility] 08-02-2023 History of Present illness Narrative Patient presents with: Hospital F/U: Discharged on 07/29 from [facility] for sepsis r/t UTI HPI: Patient presents today for office visit for hospital follow up. Was admitted again to [facility] for new issue. Had uti and possible [...] or call prn documented in this encounter [facility] 07-30-2023 Miscellaneous Notes Patient seen in office on 07/16/2023. Loyda Moffett RN Call placed to patient and spoke to daughter (Toño). She reports that patient does take the [...] Loyda Moffett RN. documented in this encounter [facility] 07-29-2023 Miscellaneous Notes Patient has been identified [...] Guadalupe Delgado RN. documented in this encounter [facility] 07-26-2023 Note HNO ID: [id number] Author: Edwina Orosco APRN.ALTERNATIVE ENERGY TECHNICIAN Service: ? Author Type: Nurse Practitioner Type: Progress Notes Filed: 07/26/2023 3:54 PM Note Text: [facility] Today's Date: 07/26/2023 Last Visit: N/A [...] and validated on 07/26/2023 by Edwina Orosco APRN.ALTERNATIVE ENERGY TECHNICIAN All prescriptions have been APPROPRIATELY filled. No [...] fracture. Degenerative disease of the lumbar spine. Bereavement Counselor: JESUS Transcribe (more content not included)... [facility] 07-26-2023 Miscellaneous Notes Patients daughter informed rx was sent to pharmacy. Shazia Marie The following approved medication requests have been transmitted electronically. Requested Prescriptions Signed Prescriptions Disp Refills traMADol (ULTRAM) 50 mg tablet 60 tablet 0 Sig: Take 1 tablet by mouth every 6 hours as needed for pain (on as needed for severe pain). Authorizing Provider: Yanni DAVIDSON PA-C Patient's daughter Toño calling. States patient was seen by Pain Mgmt today, as referred by Jostin Davidson. Daughter states pain mgmt provider does not order any pain medication at first visit and was advised to contact Jostin Davidson for request for more tramadol for patient. Daughter asking if Jostin will reorder tramadol for patient to last until next pain mgmt appt on 09/06/23? Please call daughter Toño with update. Becki Strickland RN documented in this encounter [facility] 07-26-2023 Note HNO ID: [id number] Author: Jorgito Zelaya LPN Service: ? Author [...] and suicidal ideas. The patient is nervous/anxious. [facility] 07-26-2023 History of Present illness Narrative Images from the original note were not included. [facility] Today's Date: 07/26/2023 Last Visit: N/A [...] and validated on 07/26/2023 by Edwina Orosco APRN.ALTERNATIVE ENERGY TECHNICIAN All prescriptions have been APPROPRIATELY filled. No [...] fracture. Degenerative disease of the lumbar spine. Bereavement Counselor: JESUS Transcribe Date/Time: Jul 16 2023 11:28A [...] Radiology, O[place] In Impression IMPRESSION: Degenerative changes Bereavement Counselor: JESUS Transcribe Date/Time: Jun 22 2023 7:24A Dictated by : ANNELISE HENDRESON MD This examination was interpreted and the [...] NONE Studies: None MRI: Lumbar Spine Functional Muslim: NONE Referrals: No additional considerations at present [...] decision making from today's date. Edwina Orosco APRN.CNP Pain Management [facility] Review of Systems Constitutional: Positive for activity [...] patient is nervous/anxious. documented in this encounter [facility] 07-23-2023 Note [facility] 07-23-2023 Instructions Bal Denise MD - 07/23/2023 2:48 PM EST Stop potassium as well as furosemide and lisinopril. Check labs today. Call if any worsening shortness of breath or swelling. documented in this encounter [facility] 07-23-2023 History of Present illness Narrative Patient presents with: Hospital F/U HPI: Patient presents today for office visit for hospital follow up. Here today with [id number] Rosmery. [facility] 07/16-07/17. Had syncope. Saw Jostin Davidson on 07/16/23 for follow up. While here expressed that she passed out that morning and didn't remember. EMS was called and she was transported to [facility] ER. Limited records are available. We do [...] - stable. 4. Coronary artery disease involving cocopah coronary artery of cocopah heart without angina pectoris - ICD9: 414.01, [...] RTO four weeks. documented in this encounter [facility] 07-18-2023 Note [facility] 07-18-2023 Miscellaneous Notes Appointment that is scheduled is fine. Pt's daughterToño advised of results and instructions. She verbalizes understanding. Pt was to f/u with Jostin in 5 days to recheck leg. Pt was sent to ER form ov and kept in [facility] overnight. Scheduled pt with Dr Denise for [...] Jostin Davidson PA-C documented in this encounter [facility] 07-18-2023 History of Present illness Narrative TRANSITION CARE MANAGEMENT (TCM) INITIAL CONTACT Provider Action/FYI: Recheck right lower leg also Initial contact with patient post discharge, spoke to daughterToño. Patient identified by name and . TRANSITION CARE MANAGEMENT: Date of Outreach: 07/18/2023 Outreach Attempt 1: Contact Made Date of Discharge 07/17/2023 Some recent data might be hidden SUMMARY: -Pt discharged from [facility] on 07/17/23. -Follow up appointment on 07/23/23. -Medication review done yes. -Admitted for: Syncope,orthostatic hypotension CONCERNS: None verbalized NEW MEDICATIONS: none MEDS HELD/DISCONTINUED: Holding lisinopril 10 mg and furosemide 40 mg BRIEF HOSPITAL COURSE: documented in this encounter [facility] 07-16-2023 Note [facility] 07-16-2023 History of Present illness Narrative 78 [...] Carotid Stenosis, Asymptomatic Coronary Artery Disease Involving E[place]na Coronary Artery of [place] Heart Without Angina Pectoris Paroxysmal Atrial Fibrillation [...] Surgery Iron Deficiency Iron Deficiency Anemia, Unspecified Snf (Current) Use of Anticoagulants 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 documented in this encounter [facility] 07-11-2023 History of Present illness Narrative 78 [...] Reflux Disease) Alzheimer's Dementia Without Behavioral Disturbance ([facility]) Carotid Stenosis, Asymptomatic Coronary Artery Disease Involving E[place]na Coronary Artery of [place] Heart Without Angina Pectoris Paroxysmal Atrial Fibrillation ([facility]) Ckd (Chronic Kidney Disease) Stage 3, Gfr 30-59 Ml/Min ([facility]) Morbid Obesity With Body Mass Index (Bmi) of 40.0 to 44.9 in Adult ([facility]) Abdominal Aortic Aneurysm (Aaa) Without Rupture ([facility]) Fatty Liver Bpv (Benign Positional Vertigo), Unspecified Laterality Collagenous Colitis Other Hyperlipidemia Essential Hypertension Chronic Depression Hypertensive Kidney Disease With Stage 3 Chronic Kidney Disease ([facility]) Abnormal Cardiovascular Stress Test Anemia, Unspecified Anterior Epistaxis Anxiety Cellulitis of Right Lower Limb Cellulitis, Unspecified Coagulation Defect, Unspecified ([facility]) Diaphragmatic Hernia Without Obstruction Or Gangrene Hiatal Hernia History of Atrial Fibrillation History of Coronary Artery Bypass Surgery Iron Deficiency Iron Deficiency Anemia, Unspecified Snf (Current) Use of Anticoagulants 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 Asked if it was just that she was just out of the Tylenol. States that she wasn't out she was just taking regular instead of arthritis. Will keep office updated on symptoms. If that severe, come back in . Pt's daughter Toño calls with pt on the other line. [...] was not aware of this & will fruit or nut picker more today. Asking if there is anything else pt can do for pain? Pt has a FU appt 07/16/23. Uses [facility] Mary Workman LPN documented in this encounter [facility] 07-04-2023 Miscellaneous Notes [facility] called to get clarification that patient is no longer taking gabapentin 100 mg; only 300 mg. Please call them at [phone]. documented in this encounter [facility] 06-28-2023 Miscellaneous Notes Notified daughter. Should be ok. Call if any issues at site including increased redness or warmth. Daughter Toño, reports a dog scratched patient pretty bad, tore her skin open bad, couldn't get bleeding to stop, so called the squad. ER gave patient a tetanus shot b/c patient could not remember when her last tetanus was. Per epic last tetanus was 06-18-22. Daughter concerned if this will hurt patient and asking doctor if she should be concerned. Please advise daughter. documented in this encounter [facility] 06-18-2023 Note [facility] 06-18-2023 Note [facility] 06-18-2023 Instructions Yanni Davidson PA-C - 06/18/2023 4:36 PM EDT Gabapentin (Patient Education - Adult Medication) You must carefully read the Consumer Information Use and Disclaimer below in order to understand and correctly use this information Pronunciation (GA ba pen tin) Brand Names: USGralise; Gralise Starter; Neurontin Brand [...] these OTC: Blue Emu, Aspercream with Lidocaine, Kenyan Dream, Biofreeze topicals Try to avoid activities [...] resolved, then prn. documented in this encounter [facility] 06-18-2023 History of Present illness Narrative 77 [...] Carotid Stenosis, Asymptomatic Coronary Artery Disease Involving Ekl[place]na Coronary Artery of [place] Heart Without Angina Pectoris Paroxysmal Atrial Fibrillation [...] Surgery Iron Deficiency Iron Deficiency Anemia, Unspecified Hotel Night Auditor (Current) Use of Anticoagulants Lower Esophageal Ring [...] diagnosis) The patient's primary issue is likely lfrw-sv-kolt hip arthritis. We will proceed with x-rays. [...] See and discharge instructions for other options qbhq-all-huzhybp. Encouraged Salonpas patches in addition. Educated on new medication administration, warnings and cautions, common side effects, anticipated duration or therapy, and instructions on cessation management to avoid risks if stops medication. Patient choice was discussed in shared decision making. Yanni Davidson PA-C documented in this encounter [facility] 06-14-2023 Note [facility] 06-14-2023 Note [facility] 06-14-2023 Instructions Lilly Gudino APRN.CNP - 06/14/2023 9:45 AM EDT Hold famotidine while on tizanidine. documented in this encounter [facility] 06-14-2023 History of Present illness Narrative Chief [...] couple days while on tizanidine. Lilly Gudino APRN.ALTERNATIVE ENERGY TECHNICIAN documented in this encounter [facility] 06-05-2023 Note [facility] 05-27-2023 Note [facility] 05-25-2023 Miscellaneous Notes Phoned daughter, and given provider's message's below with verbalized understanding. Us is ok. See below Results under scanned documents Verify for me results at [facility] Cannot use nsaids, can add tylenol prn Patient's daughter calls and states that patient had ultrasound on leg done on Saturday at [facility]. Daughter asking about the results for this? Daughter states that patient is a lot of pain with leg. Daughter asking if provider can prescribe anything for this pain? Daughter asking about anti-inflammatory that can be prescribed? If something can be prescribed please send to [facility]. Please review and advise, Saida Conroy RN documented in this encounter [facility] 05-20-2023 Note [facility] 05-20-2023 Miscellaneous Notes Patient's daughter calling to ask if patient was to receive script for a cream for yeast infection in her abdominal fold? If so, please send to [facility]. Hannah Amor RN documented in this encounter [facility] 05-20-2023 Note [facility] 05-20-2023 History of Present illness Narrative Patient [...] negative. One plus edema. Skin pink and internal medicine hospitalist lower legs left greater than right Peripheral [...] Bal Denise MD documented in this encounter [facility] 05-03-2023 Note [facility] 04-30-2023 Note [facility] 04-30-2023 History of Present illness Narrative Chief Complaint Patient presents with: Edema: Patient reports redness and swelling to left LE. Reports painful the entire time as well making ambulating difficult as pain radiating into foot. HPI Tanya Sanchez is a 77 year old female who presents here today for Above Complaints. Accompanied today by her daughter in law Dang and her daughter Toño on the phone who provided the history [...] daily. (Patient not taking: Reported on 04/30/2023) qxinwyfc-ezff-EO-calcium-mins (ONE-A-DAY WOMENS FORMULA) 18 mg iron-400 mcg-500 [...] Raymundo Dalal MD documented in this encounter [facility] 04-30-2023 Note [facility] 04-30-2023 Instructions Ana Tucker PA-C - 04/30/2023 9:32 AM EDT MRI of the brain Vestibular therapy for dizziness Hearing testing Lab testing Follow up in two months documented in this encounter [facility] 04-30-2023 History of Present illness Narrative ESTABLISHED [...] and neck completed noting only high grade TELEPHONE APPOINTMENT CLERK narrowing but no findings to correlate with patient's symptoms. Note, she is currently taking Eliquis, lipitor, and ASA. Discussed importance of medication compliance, healthy diet, and BP/lipid management. Outpatient electronic device monitor also ordered with finding of Afib RVR, one pause, and SVT. Patient has since had follow up with her manager portable and medication adjustments were made. She will continue to follow with her manager portable regarding medications. As previously noted, unable to [...] lead to decreased blood pressure and lightheadedness. [facility] on 01/10/22 HOME SLEEP APNEA TEST (HSAT) CONSULT TO NEUROLOGY Melvina Johnson APRN.ALTERNATIVE ENERGY TECHNICIAN CHIEF COMPLAINT: follow up HISTORY OF PRESENT [...] on sertraline and buspirone. Saw Melvina Johnson ALTERNATIVE ENERGY TECHNICIAN 01/10/22 for dizziness, LH and memory issues. [...] wear daily. Patient's daughter is a retired [employer], has also called multiple aging facilities and is using resources in the [...] MRI brain. 2. High-grade stenosis at bilateral TELEPHONE APPOINTMENT CLERK as detailed. 3. Patent remaining extra/intracranial MRA. [...] daily. (Patient not taking: Reported on 04/30/2023) vjjnvhee-atez-PK-calcium-mins (ONE-A-DAY WOMENS FORMULA) 18 mg iron-400 mcg-500 [...] which included preparing to see the patient, sbkp-vs-bqwf patient care, completing clinical documentation, obtaining and/or reviewing separately obtained history, performing a medically appropriate examination, counseling and educating the patient/family/caregiver, and ordering medications, tests, or procedures. This document has been created with the use of voice recognition technology. It may contain inaccuracies: (e.g. misspellings, inaccurate syntax or word sense) that have escaped review. documented in this encounter [facility] 04-29-2023 Note [facility] 04-29-2023 History of Present illness Narrative Episode [...] and treatment included: Therapeutic exercise, Neuromuscular re-education, Self-half-way management, Gait training, Patient/Family/Caregiver Education, Body mechanics [...] and visual cuing. Patient education as noted. Self-Skilled Nursing Management: 1: Pt's fall risk was emphasized [...] Connor Wolfe PT documented in this encounter [facility] 04-24-2023 Note [facility] 04-24-2023 Note HNO ID: [id number] Author: Bal Denise MD Service: ? Author Type: Physician Type: Progress Notes Filed: 04/24/2023 12:33 PM Note Text: Hopefully with the therapy, that will take care of it and won't need either manager terminal meds or pain management. [facility] 04-24-2023 Note [facility] 04-24-2023 History of Present illness Narrative Talked [...] care of it and won't need either manager terminal meds or pain management. CDM Telephonic Outreach Provider Action/Bal Carty MD Patient's daughter Toño reports patient having pain and recently received another prescription for tizanidine which helps the patient - asking for longer term prescription or should patient be referred to pain management? Please have your staff reach out to the patient with further orders/instructions. Thank you, Lizette Dykes RN Processing Assistant Goals, ADLs and Falls assessments updated. Spoke with Tanya Sanchez's daughter Toño and validated involvement in patient's care. Patient got carotid ultrasound 48 hour heart monitor yesterday / outside [facility] hospital system CARD order. 05/31/23 NEURO appointment for dementia Physical Therapy visits help somewhat. Contacted for: Routine Telephonic Outreach Contact made with patient: Yes Patient identified by name and date of . Discussed care with daughter Are you experiencing any new or worsening symptoms you need to talk about today? Yes Based on vp respiratory, the following disposition is advised: No symptoms or symptoms present, not severe. Routed to: No Action Needed TERESA Education Provided this Outreach: No Lizette Dykes RN April 24, 2023 12:21 PM documented in this encounter [facility] 04-22-2023 Note [facility] 04-22-2023 History of Present illness Narrative Radiology [...] 2023 1:51 PM documented in this encounter [facility] 04-22-2023 Note [facility] 04-22-2023 Miscellaneous Notes Toño notified. Naseem Campbell LPN Rx sent Patient's daughter Toño Allen calling and states patient has started physical therapy and her legs have been hurting her. Daughter asking if Dr. Denise would renew pt's script for a another short term supply of tizanidine? Pended for review. Please call daughter Toño with any updates. Thank you. documented in this encounter [facility] 04-22-2023 History of Present illness Narrative Episode [...] VALERY Hwang PT documented in this encounter [facility] 04-15-2023 Note [facility] 04-15-2023 Miscellaneous Notes Called and spoke with daughter, Margret. She wrote down new directions and verbalized understanding. Shazia Marie Labs show thyroid is still too much. Was supposed to be taking 125 daily except 112 on Sat and Sun. Change it to daily 112 mcg a day. Check tsh in six weeks. documented in this encounter [facility] 04-12-2023 Note [facility] 04-12-2023 History of Present illness Narrative Patient [...] No recent syncope. Has known stenosis of TELEPHONE APPOINTMENT CLERK. Has had ablation of a fib at [place]. Is overdue to see both [facility] [...] Take 1 tablet by mouth once daily. rigpvuat-gxaw-XP-calcium-mins (ONE-A-DAY WOMENS FORMULA) 18 mg iron-400 mcg-500 [...] current medications 4. Coronary artery disease involving cocopah coronary artery of cocopah heart without angina pectoris - ICD9: 414.01, [...] Bal Denise MD documented in this encounter [facility] 04-10-2023 Miscellaneous Notes Patient's daughter, Toño calling with request for MRI head that she says was discussed at for patient's complaint of headaches. She also says patient has had a couple of recent episodes of dizziness as reported to daughter by patient's neighbor. Most recent episode was yesterday. She says patient's neighbor told Toño that patient was staggering and needed help [...] Hannah Amor RN documented in this encounter [facility] 04-08-2023 Note [facility] 04-08-2023 History of Present illness Narrative Episode [...] VALERY Hwang PT documented in this encounter [facility] 04-03-2023 Note [facility] 04-03-2023 History of Present illness Narrative Patient [...] Take 1 tablet by mouth once daily. 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 Nazanin Turk LPN [facility]23 Miscellaneous Notes* Telephone Encounter - Hannah Amor RN - 02/21/2023 2:04 PM EDT Spoke with patient's daughter, Toño. Given message from provider's office. Patient's daughter [...] tsh in six weeks. documented in this encounterV[facility] Miscellaneous Notes* Telephone Encounter - Becki Strickland [...] Take 1 tablet by mouth once daily. udzzgwep-zreg-JM-calcium-mins (ONE-A-DAY WOMENS FORMULA) 18 mg iron-400 mcg-500 [...] daily. Becki Strickland RN documented in this encounterV[facility] Miscellaneous Notes* Telephone Encounter - Maria Guadalupe [...] when we check above. documented in this encounterV[facility]05-[facility]-2023 [facility] Miscellaneous Notes * Telephone Encounter - Naseem Campbell LPN - 01/14/2023 3:33 PM EDT GAEL 01/14/23 NOV no upcoming appt * Telephone Encounter - Jesenia Farrell - 01/14/2023 3:25 PM EDT Patient has [...] Jesenia De Souza Pss documented in this encounterV[facility]23 Instructions* Patient Instructions* Bal Denise MD - 01/14/2023 2:54 PM EDT Take pepcid Take zanalex See dentist Consider physical therapy. documented in this encounterV[facility]23 History of Present illness Narrative* Bal Denise [...] Had egd done by Dr. Keyes in [facility]. She declines. Complains of left hip pain. [...] Take 1 tablet by mouth once daily. exkayehn-yueb-ZO-calcium-mins (ONE-A-DAY WOMENS FORMULA) 18 mg iron-400 mcg-500 [...] TABLET Bal Denise MD documented in this encounterV[facility] History of Present illness Narrative* Lizette Dykes RN - 03/19/2023 11:37 AM EDT CDM Telephonic Outreach Provider Action/FYI Daughter Toño trying to convince patient to go to Physical Therapy for sciatica Started Buspirone - patient feeling less anxiety. Reminded patient about [facility] Nurse Line. [place]ño [place] of [place], contact Susan starting in April Contacted for: Routine Telephonic Outreach Contact made with patient: Yes Patient identified by name and date of . Discussed care with daughter Are you experiencing any new or worsening symptoms you need to talk about today? Yes Based on vp respiratory, the following disposition is advised: No symptoms or symptoms present, not severe. Routed to: No Action Needed TERESA Education Provided this Outreach: No Lizette Dykes RN March 19, 2023 2:06 PM * Lizette Dykes RN - 03/19/2023 8:19 AM EDT [facility] Telephonic Outreach Provider Action/FYI Contacted for: Routine Telephonic Outreach Contact made with patient: No, left message. Lizette Dykes RN March 19, 2023 11:36 AM Toño asked for call back in an hour documented in this encounterV[facility]05[facility]23 History of Present illness Narrative* Lizette Dykes RN - 05/20/2023 4:56 PM EDT Care Coordination Deferred Outreach Provider Action / FYI: Deferred outreach to patient at this time due to: Visit with provider today Next Outreach date: 06/12/23 after 2 appointments with MD Lizette Jarquin RN May 20, 2023 4:56 PM documented in this encounterVeter[facility]05-[facility]23 History of Present illness Narrative* Lizette Dykes RN - 06/14/2023 9:10 AM EDT Care Coordination Deferred Outreach Provider Action / FYI: At next [facility] Telephonic Outreach follow up on: Last [facility] CD contact 04/24/23 Katie Dykes RN. Multiple [facility] and NEURO visits since then. Deferred outreach to patient at this time due to: Visit with provider today Next Outreach date: 07/03/23 after FAMP and NEURO visits Lizette Dykes RN June 14, 2023 9:10 AM documented in this encounterVeterans Health Administration05-01-2023 History of Present illness Narrative* Lizette Dykes RN - 07/08/2023 1:51 PM EDT [facility] Telephonic Outreach Provider Action/FYI At next [facility] Telephonic Outreach follow up on: Daughter Toño relayed the following update: 06/28/23 outside [facility] hospital system Emergency Department visit for dog scratch /skin tear - skin still healing. Reminded of Express Care @ [facility]. Leg pain interferes with ability to walk - multiple diagnostics and provider appointments. Patient not tolerating higher dose of gabapentin - 07/11/23 [facility] follow up appointment with AIDE Davidson Contacted for: Routine Telephonic Outreach Contact made with patient: Yes Patient identified by name and date of . Discussed care with daughter Are you experiencing any new or worsening symptoms you need to talk about today? Yes Based on vp respiratory, the following disposition is advised: No symptoms or symptoms present, not severe. Routed to: No Action Needed TERESA Education Provided this Outreach: No Lizette Dykes RN July 08, 2023 3:25 PM documented in this encounterVeterans Health Administration04-10-2023 [facility]Tri[facility] History of Present illness Narrative* Lizette Dykes RN - 12/17/2022 8:38 AM EDT INSIGHT [facility] TELEPHONIC OUTREACH Provider Action/FYI: Spoke with patient's daughter Toño and validated involvement in this patient's care. [...] like to speak with a social work pulp mill team leader to help give you support for any [...] you up for automated weekly questionnaires through [employer]. This is an easy way for us [...] EDT INSIGHT [facility] TELEPHONIC OUTREACH Provider Action/FYI: Contact made with patient: No - Left message Katherinelo my name is Lizette Dykes RN your [employer] [facility] I am calling today for your bi-weekly check in. I am sorry I missed your call. I will reach out to you again tomorrow. (if the third call I will reach out to you again next week) Enter next patient outreach date for the following business day using the Track Pt Outreach. End outreach. 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 N/A Reason for Outreach HCC or suspected condition Payer: Payor: LEONARDO [employer] AND [employer] SHIELD / Plan: [employer] HMO / Product Type: HMO / Care Gap Reviewed:: Annual Wellness visit Reminder: Reminder note to check Health Maintenance for items below Health Maintenance items due: COVID-19 VACCINE(1) Never done HEPATITIS C SCREENING Never done SHINGRIX VACCINE(1 of 2) Never done BONE DENSITY Never done PNEUMOCOCCAL: 67+(1 - PCV) Never done LDL CHOLESTEROL due on 03/22/2022 Navigation Signature: Crys Oconnell MA December 11, 2022 12:43 PM documented in this encounterVeterans Health Administration03-10-2023 Miscellaneous Notes* Telephone Encounter - Saida Conroy [...] of Last Labs: 05/11/2022 documented in this encounterVeterans Health Administration02-23-2023 [facility]02[facility]23 [facility]02-[facility] History of Present illness Narrative* Luis Jin [...] PharmD, MEd, BCPS, CDCES documented in this encounterVeterans Health Administration02-15-2023 Miscellaneous Notes* Telephone Encounter - Maria Guadalupe Delgado RN - 10/24/2022 10:23 AM EST December nurse CM with [facility] called to let provider know that Pt care plans are available on the [facility] provider portal. She states they are going to have a patient lounge on November 08 at 4 pm telephonically. If provider would like to attend you can call [phone] opt. 1 or through e-mail at [email or web address]. documented in this encounterVeterans Health Administration02-13-2023 History of Present illness Narrative* Lizette Dykes RN - 10/22/2022 1:35 PM EST INSIGHT [facility] TELEPHONIC OUTREACH Provider Action/FYI: Spoke with patient's daughter Toño and validated involvement in this patient's care. Patient completed antibiotics, patient took part of prednisone and only used inhaler a few times. Patient doesn't like taking medicine. Wound healed - no further appointments with wound clinic. Has [facility] follow up appointment 12/07/22 - has CARD in January. Working with Care source case advocate. PER DISCUSSION WITH DTR , NEXT CDM OUTREACH AFTER 12/07/22 [facility] APPOINTMENT Since previous CDM Telephonic Outreach: 10/08/22 Bal Denise MD visit for cough/bronchitis Prescribed prednisone, albuterol inhaler and doxycycline Chest xray OK, negative for covid and flu Appointments for Next 60 Days Date Time Provider Location Dept Phone 11/21/2022 11:00 AM BAL DENISE [facility] JANE [phone] Contact made with patient: Yes Patient identified [...] like to speak with a social work pulp mill team leader to help give you support for any [...] you up for automated weekly questionnaires through [employer]. This is an easy way for us [...] PtOutreach and End outreach. documented in this encounterVeterans Health Administration01-31-2023 Miscellaneous Notes* Telephone Encounter - Yanni Loo RN - 10/09/2022 9:11 AM EST Notified daughter, Toño, of provider's message. * Telephone Encounter - Bal Denise MD - 10/09/2022 7:53 AM EST Family cannot access her my chart. Let them know her covid and flu results are negative. 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 09/09/2022 04/12/2023 Fatigue 03/26/2022 04/12/2023 Obesity, Class II, BMI 35-39.9 09/15/2019 06/23/2020 Thyroid condition 09/18/2021 documented as of this encounter (statuses as of 04/15/2023) [facility] History of Past illness Narrative* Problem Noted Date Diagnosed Date Resolved Date Chest pain 10/08/2022 04/12/2023 Shortness of breath 10/08/2022 04/12/20 23 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 09/09/2022 04/12/2023 Fatigue 03/26/2022 04/12/2023 Obesity, Class II, BMI 35-39.9 09/15/2019 06/23/2020 Thyroid condition 09/18/2021 documented as of this encounter (statuses as of 04/22/2023) [facility] History of Past illness Narrative* Problem Noted Date Diagnosed Date Resolved Date Chest pain 10/08/2022 04/12/2023 Shortness of breath 10/08/2022 04/12/20 23 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 09/09/2022 04/12/2023 Fatigue 03/26/2022 04/12/2023 Obesity, Class II, BMI 35-39.9 09/15/2019 06/23/2020 Thyroid condition 09/18/2021 documented as of this encounter (statuses as of 04/23/2023) [facility] of Past illness Narrative* Problem Noted Date Diagnosed Date Resolved Date Chest pain 10/08/2022 04/12/2023 Shortness of breath 10/08/2022 04/12/20 23 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 09/09/2022 04/12/2023 Fatigue 03/26/2022 04/12/2023 Obesity, Class II, BMI 35-39.9 09/15/2019 06/23/2020 Thyroid condition 09/18/2021 documented as of this encounter (statuses as of 04/25/2023) [facility] of Past illness Narrative* Problem Noted Date Diagnosed Date Resolved Date Chest pain 10/08/2022 04/12/2023 Shortness of breath 10/08/2022 04/12/20 23 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 09/09/2022 04/12/2023 Fatigue 03/26/2022 04/12/2023 Obesity, Class II, BMI 35-39.9 09/15/2019 06/23/2020 Thyroid condition 09/18/2021 documented as of this encounter (statuses as of 04/29/2023) [facility] of Past illness Narrative* Problem Noted Date Diagnosed Date Resolved Date Chest pain 10/08/2022 04/12/2023 Shortness of breath 10/08/2022 04/12/20 23 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 09/09/2022 04/12/2023 Fatigue 03/26/2022 04/12/2023 Obesity, Class II, BMI 35-39.9 09/15/2019 06/23/2020 Thyroid condition 09/18/2021 documented as of this encounter (statuses as of 04/30/2023) [facility] of Past illness Narrative* Problem Noted Date Diagnosed Date Resolved Date Chest pain 10/08/2022 04/12/2023 Shortness of breath 10/08/2022 04/12/20 23 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 09/09/2022 04/12/2023 Fatigue 03/26/2022 04/12/2023 Obesity, Class II, BMI 35-39.9 09/15/2019 06/23/2020 Thyroid condition 09/18/2021 documented as of this encounter (statuses as of 05/01/2023) [facility] of Past illness Narrative* Problem Noted Date Diagnosed Date Resolved Date Chest pain 10/08/2022 04/12/2023 Shortness of breath 10/08/2022 04/12/20 23 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 09/09/2022 04/12/2023 Fatigue 03/26/2022 04/12/2023 Obesity, Class II, BMI 35-39.9 09/15/2019 06/23/2020 Thyroid condition 09/18/2021 documented as of this encounter (statuses as of 05/21/2023) [facility] of Past illness Narrative* Problem Noted Date Diagnosed Date Resolved Date Chest pain 10/08/2022 04/12/2023 Shortness of breath 10/08/2022 04/12/20 23 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 09/09/2022 04/12/2023 Fatigue 03/26/2022 04/12/2023 Obesity, Class II, BMI 35-39.9 09/15/2019 06/23/2020 Thyroid condition 09/18/2021 documented as of this encounter (statuses as of 05/21/2023) [facility] of Past illness Narrative* Problem Noted Date Diagnosed Date Resolved Date Chest pain 10/08/2022 04/12/2023 Shortness of breath 10/08/2022 04/12/20 23 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 09/09/2022 04/12/2023 Fatigue 03/26/2022 04/12/2023 Obesity, Class II, BMI 35-39.9 09/15/2019 06/23/2020 Thyroid condition 09/18/2021 documented as of this encounter (statuses as of 05/21/2023) [facility] of Past illness Narrative* Problem Noted Date Diagnosed Date Resolved Date Chest pain 10/08/2022 04/12/2023 Shortness of breath 10/08/2022 04/12/20 23 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 09/09/2022 04/12/2023 Fatigue 03/26/2022 04/12/2023 Obesity, Class II, BMI 35-39.9 09/15/2019 06/23/2020 Thyroid condition 09/18/2021 documented as of this encounter (statuses as of 05/25/2023) [facility] of Past illness Narrative* Problem Noted Date Diagnosed Date Resolved Date Chest pain 10/08/2022 04/12/2023 Shortness of breath 10/08/2022 04/12/20 23 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 09/09/2022 04/12/2023 Fatigue 03/26/2022 04/12/2023 Obesity, Class II, BMI 35-39.9 09/15/2019 06/23/2020 Thyroid condition 09/18/2021 documented as of this encounter (statuses as of 06/15/2023) [facility] of Past illness Narrative* Problem Noted Date Diagnosed Date Resolved Date Chest pain 10/08/2022 04/12/2023 Shortness of breath 10/08/2022 04/12/20 23 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 09/09/2022 04/12/2023 Fatigue 03/26/2022 04/12/2023 Obesity, Class II, BMI 35-39.9 09/15/2019 06/23/2020 Thyroid condition 09/18/2021 documented as of this encounter (statuses as of 06/15/2023) [address]30-2023 History of Past illness Narrative* Problem Noted Date Diagnosed Date Resolved Date Chest pain 10/08/2022 04/12/2023 Shortness of breath 10/08/2022 04/12/20 23 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 09/09/2022 04/12/2023 Fatigue 03/26/2022 04/12/2023 Obesity, Class II, BMI 35-39.9 09/15/2019 06/23/2020 Thyroid condition 09/18/2021 documented as of this encounter (statuses as of 06/19/2023) [facility] of Past illness Narrative* Problem Noted Date Diagnosed Date Resolved Date Chest pain 10/08/2022 04/12/2023 Shortness of breath 10/08/2022 04/12/20 23 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 09/09/2022 04/12/2023 Fatigue 03/26/2022 04/12/2023 Obesity, Class II, BMI 35-39.9 09/15/2019 06/23/2020 Thyroid condition 09/18/2021 documented as of this encounter (statuses as of 06/28/2023) [facility] of Past illness Narrative* Problem Noted Date Diagnosed Date Resolved Date Chest pain 10/08/2022 04/12/2023 Shortness of breath 10/08/2022 04/12/20 23 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 09/09/2022 04/12/2023 Fatigue 03/26/2022 04/12/2023 Obesity, Class II, BMI 35-39.9 09/15/2019 06/23/2020 Thyroid condition 09/18/2021 documented as of this encounter (statuses as of 07/05/2023) [facility] of Past illness Narrative* Problem Noted Date Diagnosed Date Resolved Date Chest pain 10/08/2022 04/12/2023 Shortness of breath 10/08/2022 04/12/20 23 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 09/09/2022 04/12/2023 Fatigue 03/26/2022 04/12/2023 Obesity, Class II, BMI 35-39.9 09/15/2019 06/23/2020 Thyroid condition 09/18/2021 documented as of this encounter (statuses as of 07/05/2023) [facility] of Past illness Narrative* Problem Noted Date Diagnosed Date Resolved Date Chest pain 10/08/2022 04/12/2023 Shortness of breath 10/08/2022 04/12/20 23 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 09/09/2022 04/12/2023 Fatigue 03/26/2022 04/12/2023 Obesity, Class II, BMI 35-39.9 09/15/2019 06/23/2020 Thyroid condition 09/18/2021 documented as of this encounter (statuses as of 07/05/2023) [facility] of Past illness Narrative* Problem Noted Date Diagnosed Date Resolved Date Chest pain 10/08/2022 04/12/2023 Shortness of breath 10/08/2022 04/12/20 23 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 09/09/2022 04/12/2023 Fatigue 03/26/2022 04/12/2023 Obesity, Class II, BMI 35-39.9 09/15/2019 06/23/2020 Thyroid condition 09/18/2021 documented as of this encounter (statuses as of 07/09/2023) [facility] of Past illness Narrative* Problem Noted Date Diagnosed Date Resolved Date Chest pain 10/08/2022 04/12/2023 Shortness of breath 10/08/2022 04/12/20 23 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 09/09/2022 04/12/2023 Fatigue 03/26/2022 04/12/2023 Obesity, Class II, BMI 35-39.9 09/15/2019 06/23/2020 Thyroid condition 09/18/2021 documented as of this encounter (statuses as of 07/13/2023) [facility] of Past illness Narrative* Problem Noted Date Diagnosed Date Resolved Date Chest pain 10/08/2022 04/12/2023 Shortness of breath 10/08/2022 04/12/20 23 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 09/09/2022 04/12/2023 Fatigue 03/26/2022 04/12/2023 Obesity, Class II, BMI 35-39.9 09/15/2019 06/23/2020 Thyroid condition 09/18/2021 documented as of this encounter (statuses as of 07/14/2023) [facility] of Past illness Narrative* Problem Noted Date Diagnosed Date Resolved Date Chest pain 10/08/2022 04/12/2023 Shortness of breath 10/08/2022 04/12/20 23 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 09/09/2022 04/12/2023 Fatigue 03/26/2022 04/12/2023 Obesity, Class II, BMI 35-39.9 09/15/2019 06/23/2020 Thyroid condition 09/18/2021 documented as of this encounter (statuses as of 07/18/2023) [facility] of Past illness Narrative* Problem Noted Date Diagnosed Date Resolved Date Chest pain 10/08/2022 04/12/2023 Shortness of breath 10/08/2022 04/12/20 23 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 09/09/2022 04/12/2023 Fatigue 03/26/2022 04/12/2023 Obesity, Class II, BMI 35-39.9 09/15/2019 06/23/2020 Thyroid condition 09/18/2021 documented as of this encounter (statuses as of 07/18/2023) [facility] of Past illness Narrative* Problem Noted Date Diagnosed Date Resolved Date Chest pain 10/08/2022 04/12/2023 Shortness of breath 10/08/2022 04/12/20 23 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 09/09/2022 04/12/2023 Cellulitis, unspecified 04/02/202207/10 Fatigue 03/26/2022 04/12/2023 Obesity, Class II, BMI 35-39.9 09/15/2019 06/23/2020 Thyroid condition 09/18/2021 documented as of this encounter (statuses as of 07/24/2023) [place] [address]30-2023 History of Past illness Narrative* Problem Noted Date Diagnosed Date Resolved Date Chest pain 10/08/2022 04/12/2023 Shortness of breath 10/08/2022 04/12/20 23 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 09/09/2022 04/12/2023 Cellulitis, unspecified 04/02/202207/10 Fatigue 03/26/2022 04/12/2023 Obesity, Class II, BMI 35-39.9 09/15/2019 06/23/2020 Thyroid condition 09/18/2021 documented as of this encounter (statuses as of 07/26/2023) [facility] of Past illness Narrative* Problem Noted Date Diagnosed Date Resolved Date Chest pain 10/08/2022 04/12/2023 Shortness of breath 10/08/2022 04/12/20 23 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 09/09/2022 04/12/2023 Cellulitis, unspecified 04/02/202207/10 Fatigue 03/26/2022 04/12/2023 Obesity, Class II, BMI 35-39.9 09/15/2019 06/23/2020 Thyroid condition 09/18/2021 documented as of this encounter (statuses as of 07/26/2023) [facility] of Past illness Narrative* Problem Noted Date Diagnosed Date Resolved Date Chest pain 10/08/2022 04/12/2023 Shortness of breath 10/08/2022 04/12/20 23 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 09/09/2022 04/12/2023 Cellulitis, unspecified 04/02/202207/10 Fatigue 03/26/2022 04/12/2023 Obesity, Class II, BMI 35-39.9 09/15/2019 06/23/2020 Thyroid condition 09/18/2021 documented as of this encounter (statuses as of 07/30/2023) [facility] of Past illness Narrative* Problem Noted Date Diagnosed Date Resolved Date Chest pain 10/08/2022 04/12/2023 Shortness of breath 10/08/2022 04/12/20 23 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 09/09/2022 04/12/2023 Cellulitis, unspecified 04/02/202207/10 Fatigue 03/26/2022 04/12/2023 Obesity, Class II, BMI 35-39.9 09/15/2019 06/23/2020 Thyroid condition 09/18/2021 documented as of this encounter (statuses as of 07/31/2023) [facility] of Past illness Narrative* Problem Noted Date Diagnosed Date Resolved Date Chest pain 10/08/2022 04/12/2023 Shortness of breath 10/08/2022 04/12/20 23 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 09/09/2022 04/12/2023 Cellulitis, unspecified 04/02/202207/10 Fatigue 03/26/2022 04/12/2023 Obesity, Class II, BMI 35-39.9 09/15/2019 06/23/2020 Thyroid condition 09/18/2021 documented as of this encounter (statuses as of 08/02/2023) [facility] of Past illness Narrative* Problem Noted Date Diagnosed Date Resolved Date Chest pain 10/08/2022 04/12/2023 Shortness of breath 10/08/2022 04/12/20 23 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 09/09/2022 04/12/2023 Cellulitis, unspecified 04/02/202207/10 Fatigue 03/26/2022 04/12/2023 Obesity, Class II, BMI 35-39.9 09/15/2019 06/23/2020 Thyroid condition 09/18/2021 documented as of this encounter (statuses as of 08/05/2023) [facility] of Past illness Narrative* Problem Noted Date Diagnosed Date Resolved Date Chest pain 10/08/2022 04/12/2023 Shortness of breath 10/08/2022 04/12/20 23 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 09/09/2022 04/12/2023 Cellulitis, unspecified 04/02/202207/10 Fatigue 03/26/2022 04/12/2023 Obesity, Class II, BMI 35-39.9 09/15/2019 06/23/2020 Thyroid condition 09/18/2021 documented as of this encounter (statuses as of 08/07/2023) [facility] of Past illness Narrative* Problem Noted Date Diagnosed Date Resolved Date Chest pain 10/08/2022 04/12/2023 Shortness of breath 10/08/2022 04/12/20 23 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 09/09/2022 04/12/2023 Cellulitis, unspecified 04/02/202207/10 Fatigue 03/26/2022 04/12/2023 Obesity, Class II, BMI 35-39.9 09/15/2019 06/23/2020 Thyroid condition 09/18/2021 documented as of this encounter (statuses as of 08/13/2023) [facility] of Past illness Narrative* Problem Noted Date Diagnosed Date Resolved Date Chest pain 10/08/2022 04/12/2023 Shortness of breath 10/08/2022 04/12/20 23 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 09/09/2022 04/12/2023 Cellulitis, unspecified 04/02/202207/10 Fatigue 03/26/2022 04/12/2023 Obesity, Class II, BMI 35-39.9 09/15/2019 06/23/2020 Thyroid condition 09/18/2021 documented as of this encounter (statuses as of 08/22/2023) [facility] History of Past illness Narrative* Problem Noted Date Diagnosed Date Resolved Date Chest pain 10/08/2022 04/12/2023 Shortness of breath 10/08/2022 04/12/20 23 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 09/09/2022 04/12/2023 Cellulitis, unspecified 04/02/202207/10 Fatigue 03/26/2022 04/12/2023 Obesity, Class II, BMI 35-39.9 09/15/2019 06/23/2020 Thyroid condition 09/18/2021 documented as of this encounter (statuses as of 08/22/2023) [facility] of Past illness Narrative* Problem Noted Date Diagnosed Date Resolved Date Chest pain 10/08/2022 04/12/2023 Shortness of breath 10/08/2022 04/12/20 23 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 09/09/2022 04/12/2023 Cellulitis, unspecified 04/02/202207/10 Fatigue 03/26/2022 04/12/2023 Obesity, Class II, BMI 35-39.9 09/15/2019 06/23/2020 Thyroid condition 09/18/2021 documented as of this encounter (statuses as of 10/11/2023) [facility] History of Past illness Narrative* Problem Noted Date Diagnosed Date Resolved Date Chest pain 10/08/2022 04/12/2023 Shortness of breath 10/08/2022 04/12/20 23 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 09/09/2022 04/12/2023 Cellulitis, unspecified 04/02/202207/10 Fatigue 03/26/2022 04/12/2023 Obesity, Class II, BMI 35-39.9 09/15/2019 06/23/2020 Thyroid condition 09/18/2021 documented as of this encounter (statuses as of 10/18/2023) [facility] of Past illness Narrative* Problem Noted Date Diagnosed Date Resolved Date Chest pain 10/08/2022 04/12/2023 Shortness of breath 10/08/2022 04/12/20 23 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 09/09/2022 04/12/2023 Cellulitis, unspecified 04/02/202207/10 Fatigue 03/26/2022 04/12/2023 Obesity, Class II, BMI 35-39.9 09/15/2019 06/23/2020 Thyroid condition 09/18/2021 documented as of this encounter (statuses as of 10/18/2023) [facility] History of Past illness Narrative* Problem Noted Date Diagnosed Date Resolved Date Chest pain 10/08/2022 04/12/2023 Shortness of breath 10/08/2022 04/12/20 23 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 09/09/2022 04/12/2023 Cellulitis, unspecified 04/02/202207/10 Fatigue 03/26/2022 04/12/2023 Obesity, Class II, BMI 35-39.9 09/15/2019 06/23/2020 Thyroid condition 09/18/2021 documented as of this encounter (statuses as of 10/21/2023) [facility] History of Past illness Narrative* Problem Noted Date Diagnosed Date Resolved Date Chest pain 10/08/2022 04/12/2023 Shortness of breath 10/08/2022 04/12/20 23 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 09/09/2022 04/12/2023 Cellulitis, unspecified 04/02/202207/10 Fatigue 03/26/2022 04/12/2023 Obesity, Class II, BMI 35-39.9 09/15/2019 06/23/2020 Thyroid condition 09/18/2021 documented as of this encounter (statuses as of 10/22/2023) [facility] History of Past illness Narrative* Problem Noted Date Diagnosed Date Resolved Date Chest pain 10/08/2022 04/12/2023 Shortness of breath 10/08/2022 04/12/20 23 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 09/09/2022 04/12/2023 Cellulitis, unspecified 04/02/202207/10 Fatigue 03/26/2022 04/12/2023 Obesity, Class II, BMI 35-39.9 09/15/2019 06/23/2020 Thyroid condition 09/18/2021 documented as of this encounter (statuses as of 10/22/2023) [facility] History of Past illness Narrative* Problem Noted Date Diagnosed Date Resolved Date Chest pain 10/08/2022 04/12/2023 Shortness of breath 10/08/2022 04/12/20 23 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 09/09/2022 04/12/2023 Cellulitis, unspecified 04/02/202207/10 Fatigue 03/26/2022 04/12/2023 Obesity, Class II, BMI 35-39.9 09/15/2019 06/23/2020 Thyroid condition 09/18/2021 documented as of this encounter (statuses as of 10/28/2023) [facility] History of Past illness Narrative* Problem Noted Date Diagnosed Date Resolved Date Chest pain 10/08/2022 04/12/2023 Shortness of breath 10/08/2022 04/12/20 23 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 Patient verbalizes understanding. Edwina Martino Ma * Telephone Encounter - Bal Denise MD - 10/08/2022 11:21 AM EST They do not have access to her my chart. Call her daughter and let her know chest xray was ok. documented in this encounterVeterans Health Administration01-30-2023 History of Present illness Narrative* Bal Denise [...] Take 1 tablet by mouth once daily. rkiywyvk-cqok-UH-calcium-mins (ONE-A-DAY WOMENS FORMULA) 18 mg iron-400 mcg-500 [...] TABLET Bal Denise MD documented in this encounterVeterans Health Administration01-17-2023 History of Present illness Narrative* Lizette Dykes RN - 09/25/2022 4:00 PM EST INSIGHT CDM TELEPHONIC OUTREACH Provider Action/FYI: Spoke with patient's daughter Toño and validated involvement in this patient's care. EGD with biopsy done today - went well. Wound clinic next week - may be finished after 2 more visits. Appointments for Next 60 Days Date Time Provider Location Dept Phone 11/21/2022 11:00 AM BAL DENISE [facility], 1926[facility] JANE [phone] Contact made with patient: Yes Patient identified [...] like to speak with a social work pulp mill team leader to help give you support for any [...] you up for automated weekly questionnaires through [employer]. This is an easy way for us [...] PtOutreach and End outreach. documented in this encounterVeter[facility] Health Administration01-16-2023 Miscellaneous Notes* Telephone Encounter - Saida Conroy RN - 09/24/2022 8:58 AM EST Last Office Visit: 07/18/2022 Future Office Visit: 11/21/2022 Requested Prescriptions Pending Prescriptions Disp Refills levothyroxine (SYNTHROID) 112 mcg tablet 30 tablet 5 Sig: Take 1 tablet by mouth daily before breakfast. For thyroid. Date of Last Labs: 05/11/2022 documented in this encounterVeter[facility] Administration12-20-2022 History of Present illness Narrative* Lizette Dykes RN - 08/28/2022 2:45 PM EST INSIGHT CDM TELEPHONIC OUTREACH Provider Action/FYI: Spoke with patient's daughter Toño and validated involvement in this patient's care. Patient has been going to Wound center weekly - leg almost healed. Patient reports weakness and depression gets worse in Winter. Patient has counselor - currently taking a break will get back in touch if needed, has declined Toño's offer to schedule sooner appointment with Dr [...] like to speak with a social work pulp mill team leader to help give you support for any [...] you up for automated weekly questionnaires through [employer]. This is an easy way for us [...] PtOutreach and End outreach. documented in this encounterVeter[facility] Administration12-19-2022 Miscellaneous Notes* Telephone Encounter - Saida Conroy [...] of Last Labs: 05/11/2022 documented in this encounterVeterans Health Administration11-09-2022 Miscellaneous Notes* Telephone Encounter - Naseem Campbell LPN - 07/18/2022 1:01 PM EST Referral faxed to Wound Center. Naseem Campbell LPN * Telephone Encounter - Anastasiya Lua APRN.CNP - 07/18/2022 12:40 PM EST Please send wound referral to [facility]. documented in this encounterVeterans Health Administration11-09-2022 History of Present illness Narrative* Anastasiya Lua [...] Take 1 tablet by mouth once daily. khwzuecq-xqee-EE-calcium-mins (ONE-A-DAY WOMENS FORMULA) 18 mg iron-400 mcg-500 [...] as needed for worsening/no improvement. Anastasiya Lua APRN.RAYNE documented in this encounterVeterans Health Administration10-26-2022 Instructions* Patient Instructions* Anastasiya Lua APRN.CNP - 07/04/2022 10:02 AM EDT Continue antibiotic cream to the area. If there is any worsening redness/pain, let us know. Otherwise, recheck in 2 weeks. documented in this encounterVeterans Health Administration10-26-2022 History of Present illness Narrative* Anastasiya Lua APRN.RAYNE - 07/04/2022 9:50 AM EDT This is [...] Take 1 tablet by mouth once daily. xekqjqzp-ijub-GH-calcium-mins (ONE-A-DAY WOMENS FORMULA) 18 mg iron-400 mcg-500 [...] as needed for worsening/no improvement. Anastasiya Lua APRN.ALTERNATIVE ENERGY TECHNICIAN The patient indicates understanding of these issues and agrees with the plan. documented in this encounterVeter[facility] Administration10-19-2022 History of Present illness Narrative* Bal Denise [...] Take 1 tablet by mouth once daily. qwupzmtd-ocoa-BS-calcium-mins (ONE-A-DAY WOMENS FORMULA) 18 mg iron-400 mcg-500 [...] Denise MD RTO above with Anastasiya or prn. documented in this encounterVeter[facility] Health Administration10-10-2022 History of Present illness Narrative* Bal Denise MD - 06/18/2022 7:04 PM EDT Patient presents with: Follow Up: UC right lower leg c/o burning and redness is bigger now HPI: Patient presents today for office visit for follow up. See urgent care from 06/11: 1. Skin tear of lower leg without [...] Take 1 tablet by mouth once daily. gyhfntja-lbcg-FS-calcium-mins (ONE-A-DAY WOMENS FORMULA) 18 mg iron-400 mcg-500 [...] Moderate Bal Denise MD documented in this encounterVeter[facility] Administration10-03-2022 History of Present illness Narrative* Vince Sheridan [...] 1 tablet by mouth once daily.^Disp: ^Rfl: hcsunelb-xhze-GG-calcium-mins (ONE-A-DAY WOMENS FORMULA) 18 mg iron-400 mcg-500 [...] orfever/malaise. Vince Sheridan MD documented in this encounterVeterans Health Administration10-03-2022 Miscellaneous Notes* Telephone Encounter - Maria Guadalupe [...] EC to be seen. documented in this encounterVeterans Health Administration09-28-2022 Miscellaneous Notes* Telephone Encounter - Maria Guadalupe [...] 212 Please advise. Thank you. Maria Guadalupe Delgado RN documented in this encounterVeterans Health Administration09-19-2022 History of Present illness Narrative* Magaly Preciado MD - 05/28/2022 12:09 PM EDT Virtualist Distance Health Note (Community monitoring/CC HC/H@[facility] escalations) Adult seen for Monitoring Track: Healthy at Home [facility] Contacted by phone, LiveOffice, Google Duo, Zoom, Doximity, other: phone History [...] was spent providing medical care using telemedicine. [facility]19 association Signed in as Primary Virtualist, Secondary Virtualist, or [facility] Telehealth provider: Secondary SIGNATURE: Magaly Preciado MD PATIENT NAME: Tanya Sanchez DATE: May 28, 2022 documented in this encounterVeterans Health Administration09-19-2022 Miscellaneous Notes* Telephone Encounter - Stacy Moreno RN - 05/28/2022 11:17 AM EDT HEALTHY AT HOME OUTREACH Provider Action/FYI: Patient's daughter Toño Villa calling for patient who is having [...] agreement,and patient's daughter to take patient to [facility]. Patient's daughter to also make sure that [facility] follows up with Dr. Denise and patient's records made available. Hello, you've reached [facility] Healthy at Home, my name is Stacy Moreno [...] 5pm to H@H Navigation pool Route to [facility] Custom Leather Products Maker Do you understand my recommendations? (After patient [...] 11. : N/A. Post-menopausal Protocols used: Head Lcxjgk-UQPZD-SJ documented in this encounterVeterans Health Administration09-19-2022 History of Present illness Narrative* Martina Jacques, JESUS - 05/28/2022 8:30 AM EDT Radiology Service Progress Note PATIENT NAME: Tanya TSAIN: [id number] DATE OF SERVICE: May 28, 2022 TIME: [...] 28, 2022 8:44 AM documented in this encounterVeterans Health Administration08-23-2022 Miscellaneous Notes* Telephone Encounter - Shanique Bell LPN - 05/01/2022 3:17 PM EDT Rachelle from [facility] calling asking for copy of discharge information from [facility] admission for 03/09/2022 to be faxed to [phone]. Printed and faxed as requested. documented in this encounterVeterans Health Administration08-09-2022 Miscellaneous Notes* Telephone Encounter - Saida Conroy RN - 04/17/2022 11:41 AM EDT Last Office Visit: 03/19/2022 Future Office Visit: 04/27/2022 Last Medication Refill: sertraline 12/12/2021 30 tab 3 refill Date of Last Labs: 03/19/2022 documented in this encounterVeterans Health Administration07-14-2022 Miscellaneous Notes* Telephone Encounter - Maria Guadalupe [...] if provider would send something in the [facility] for Pt. Please call and advise. documented in this encounterVeterans Health Administration07-13-2022 Miscellaneous Notes* Telephone Encounter - Oksana Quinonez Ma - 03/21/2022 8:49 AM EDT Please resend rx this was given when in hospital Oksana Quinonez Ma * Telephone Encounter - Leonor Lira - 03/21/2022 8:35 AM EDT [facility] calling about medication pantoprazole DR (PROTONIX) 40 mg tablet. Medication has been sent to the wrong pharmacy. Medication was sent to [facility], but should have been sent to [facility]. Please make changes and submit to [facility]. documented in this encounterVeterans Health Administration07-12-2022 Miscellaneous Notes* Telephone Encounter - Jodi Black [...] labs in one month documented in this encounterVeterans Health Administration07-11-2022 History of Present illness Narrative* Bal Denise MD - 03/19/2022 9:20 AM EDT No chief complaint on file. HPI: Patient presents today for office visit for hospital follow up. Not TCM. Limited records and did not bring in med list. Was admitted to [facility] with A fib. She is accompanied by her daughter and neither is fully aware of all the details. ? Had some type of ablation. Her groin incisions are well healed. No chest pain or palpitation. No shortness of breath. No syncope. Went home and had swelling and redness to her right leg. Needed help with ambulation. Records are limited from [facility]. Denies black and bloody stools. Was very fatigued. Had egd and found ulcer that was bleeding. Did have a blood transfusion. Just finished antibiotics. Leg is back to normal. Still taking her PPI. She is not sure if she is to follow with cardiology Has no follow up with cardiology set up as well. Declines returning to [facility]. No gi upset. No changes in the bowels. No black or bloody stools. They did not put her on ir. See previous: Discharge Plan Admission Admit Date/Time: 03/10/22 10:57 Primary Reason for Your Visit: Right leg cellulitis, Anemia/GI bleed Attending Provider: Tommy Draper Primary Care Provider: Bal Denise Consulting Providers: Martina Purcell HAND WINDER ; Myrna Chan Discharge Orders/Prescriptions Prescriptions: New [...] mg PO DAILY Referrals / Follow Up: Edvin Keyes DO [STAFF PHYSICIAN] - Within 2 Weeks Bal Denise [Primary Care Provider] - In 1 Week Juju Ch, PA [PHYSICIAN BRAKE REPAIR MECHANIC] - See Referral Note (As scheduled 04/06/2022) [...] Take 1 tablet by mouth once daily. iorwwxjc-otvp-LD-calcium-mins (ONE-A-DAY WOMENS FORMULA) 18 mg iron-400 mcg-500 [...] 4 weeks and prn. documented in this encounterVeterans Health Administration07-08-2022 History of Present illness Narrative* Dominga Dunn RN - 03/16/2022 4:12 PM EDT [facility] CDM Enrollment Provider Action/FYI: - ckd, htn Patient referred by: [facility] Contact made with patient: No - Unable to leave message: (Keep encounter open and attempt 2nd outreach in two business days from today). END OUTREACH * Dominga Dunn RN - 03/14/2022 5:50 PM EDT [facility] CDM Enrollment Provider Action/FYI: - ckd, htn Patient referred by: [facility] Contact made with patient: No - Left Message: Hi my name is Dominga Dunn RN and I am calling from the [facility] on behalf of your PCP, Bal Denise MD. We are excited to share with you a new program to help you manage your health. Please call me back at [phone] between the hours of 8am-5pm Saturday- Saturday. You will receive another phone call from me within the next two business days.I hope you can take the time to speak with me. (Keep encounter open and attempt 2nd outreach in two business days from today) END OUTREACH documented in this encounterVeterans Health Administration07-08-2022 Evaluation note* Diagnosis Stage 3 chronic kidney disease, unspecified whether stage 3a or 3b CKD (HCC)- Primary documented in this encounter [facility]07-01-2022 Miscellaneous Notes* Telephone Encounter - Bal Denise [...] calf. 7. : Postmenopausal. Protocols used: LEG QFSD-PAKOF-JY documented in this encounterVeterans Health Administration06-30-2022 Hospital Discharge instructions Patient Education 03/08/2022 10:05:57 [...] need to report the following to your space and storage clerk: Any draining or oozing from the site [...] Document Reviewed: 08/27/2014 ExitCare Patient Information 2015 [employer]. This information is not intended to replace advicegiven to you by your health care provider. Make sure you discuss any questions you have with your health care provider. Follow Up Care 02/23/2022 09:09:57 With:PREET MARTINEZ MD Address: [address] [place] [address]- [phone] When:06/14/2022 11:30:00 [facility] 06-30-2022 Summary of episode note Discharge Instructions Thank you for allowing [facility] to assist you with your healthcare needs. The following is importantdischarge information regarding your hospital visit. Your Care Team BAL DENISE MD What to do next Scheduled Follow-Up Appointments Appointment Type When Where Contact InformationCV OV 06/14/2022 11:30 AM EDT [facility] Follow Up Appointments Follow Up with PREET MARTINEZ MD When 06/14/2022 11:30 AM EDT Where: [address] [place] [address]- [phone] The Following Activity and Diet Have Been [...] need to report the following to your space and storage clerk: Any draining or oozing from the site [...] Document Reviewed: 08/27/2014 ExitCare Patient Information 2015 [employer]. This information is not intended to replace advicegiven to you by your health care provider. Make sure you discuss any questions you have with your health care provider. Additional Information VACCINATE! IT SAVES LIVES! Members of the community who have not yet received the COVID-19 vaccine and would like to receive it can visit one of [facility] vaccine clinics. There are many vaccine clinic locations within the [facility]. For locations and available times, please visit [email or web address] It is important to note that some COVID mobile vaccine clinics are held outdoors and may be canceled in rainy or stormy conditions. To learn more about pediatric vaccinations (ages 5-11), we invite you to visit the [facility] webpage. [email or web address] [email or web address] learn more about the COVID-19 vaccine, we invite you to visit the [employer] website for a list of frequently asked questions. [email or web address] _[email or web address]-Questions.pdf [facility] Patient Portal Access Instructions: Stay connected with your healthcare team and access your personal medical information anytime with the [employer] Patient Portal.If you would like a full copy of your medical records, please contact the [facility] Medical Records Department, Saturday through Saturday between 8a.m. and 4:30p.m. Please follow the directions below to access the portal: 1.Access the email account you provided upon registration to the [facility].2.Look for an invitation email from [facility].3.Open the email and access the invitation link: Accept Invitation to [employer]4.Fill in the required blas to create your account. Sign into [email or web address] with your username and password that you [...] you will allow to register on the [facility] Patient Portal for access to your information. You can also access the [facility] Patient Portal on the [employer]. Simply click on Health Records under [employer] and then click on the [employer] logo. HOW TO SAFELY DISPOSE OF PRESCRIPTION [...] Call your local pharmacy or go to [email or web address] to find one close to you.3.Make use of household items: Use cat litter or old coffee grounds to dispose medications if other options arenot available. Mix your drugs with these household products, seal them in an airtight container andthrow it into the garbage. Call [facility]: [phone] to be sure your drugs can be [...] that I should contact my d octor. Patient/Quality Rep Signature: Date/Time: Relationship to Patient: Witness Name/Signature: Date/Time: [id number] Anesthesiology Progress note Pt taken to EP2. [...] BECKI HANSEN DO on 03/07/2022 08:54 AM [id number] Anesthesiology Consult note Patient: TANYA SANCHEZ Age: [...] Problem list: Medical Anxiety / SNOMED CT 67947318 / Confirmed Dementia / SNOMED CT 32373575 / Confirmed GERD - Gastro-esophageal reflux disease / SNOMED CT 7188459727 / Confirmed Hypertension / SNOMED CT 91923461 / Confirmed Hypothyroid / SNOMED CT 71768265 / Confirmed Paroxysmal atrial fibrillation / SNOMED CT 435126850 / Confirmed Pseudoseizures / SNOMED CT 365504246 / Confirmed Seizures / SNOMED CT 994034392 / Confirmed Syncope / SNOMED CT 984632512 / Confirmed, Active Problems (9) Anxiety Dementia GERD - Gastro-esophageal reflux disease Hypertension Hypothyroid Paroxysmal atrial fibrillation Pseudoseizures Seizures Syncope Histories Past Medical History: Active Seizures (503650893) Comments: 06/10/2016 EDT 14:32 [facility] - RADHA Guevara pseudo seizures Hypothyroid (13852346) Family History: Patient was adopted. Procedure history: Echocardiogram ([id number]) in the month of 02/2022 at 76 Years. 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 Cataract ([id number]). Social History Social & Psychosocial Habits Alcohol [...] Designated Person #1 We May Share JACKSON Jade [phone] Designated Person #1 Relationship Daughter Privacy Restrictions Requested None Height 162.6 cm Admission Weight 112.7 kg Weight Method Actual Garrett Body Weight 54.74 kg Body Mass Index 42.63 kg/m2 Body Mass Index 42.63 kg/m2 Temperature Temporal Artery 36.1 DegC Apical Heart Rate 65 bpm Respiratory Rate 18 br/min Systolic BP Left Arm 134 mmHg Diastolic BP Left Arm 88 mmHg Primary Pain Intensity 0 Primary Pain Nonverbal Response Nods No Pain Scale Type 0-10 Pain scale Nail Bed Color [place] Capillary Refill < 2 seconds Jugular Venous [...] Facial Movement Symmetric resting/crying All Extremity Description [place] Skin Temperature Warm Temperature All Extremities Warm Skin Description [place], Dry Skin Integrity Intact Skin Turgor Non-Elastic Mucous Membrane Color [place] Mucous Membrane Description Moist Neurological Language Able [...] Loss No Safety Brochure Information Reviewed Yes [employer] [facility] Video Viewed Patient refused Individuals Taught Patient, Daughter Learning Readiness Willing to learn Barriers to Learning Memory problems Teaching Method Explanation, Printed materials, Teach-back Teaching Evaluation Verbalizes/Nonverbally indicates understanding Preferred Written Language Divehi Preferred Spoken Language Divehi Pre Procedure/Surgery Education Date/Time of procedure/surgery, NPO [...] Ordered (In Progress) . Assessment and Plan [place] Society of Anesthesiologists (ASA) physical status classification: [...] BECKI HANSEN DO on 03/07/2022 06:44 AM [id number] Nurse Progress note Patient did not bring in home medication list. Patient is a poor historian with short term memory. Called patients daughter at home and reviewed home medications and last dose date and time with daughter who had medication list and bottles in front of her. Digitally Signed by RADHA Feldman on 03/07/2022 06:43 AM [facility] [id number] Miscellaneous Notes* Telephone Encounter - Kathy Pennington [...] Scheduled for 1 month from now with [facility] electronic device monitor as noted. Request made for BRODY appt. Bal Morales MD documented in this encounterVeterans Health Administration06-09-2022 Miscellaneous Notes* Telephone Encounter - Angelique [facility] - 02/15/2022 2:30 PM EDT Patient has [...] request. No need to notify patient. Angelique Nadirdustin [employer] documented in this encounterVeterans Health Administration05-04-2022 History of Present illness Narrative* Melvina Johnson APRN.ALTERNATIVE ENERGY TECHNICIAN - 01/10/2022 5:15 PM EDT Images from the original note were not included. [facility] [place] Follow-up Virtual Visit Follow-up note January 10, [...] placed as pt wanting totransition to new manager portable. -Orthostatics negative in office today, but will [...] more details next visit. Consider referral to neuropsc or [facility] for brain health for cognitive assessment. Still [...] have no clue. She was seen by [facility] last Saturday. Will be changing [...] Take 1 tablet by mouth once daily. gzihsjrk-fyfk-GR-calcium-mins (ONE-A-DAY WOMENS FORMULA) 18 mg iron-400 mcg-500 [...] DATE OF EXAM: Dec 28 2021 10:10AM [facility] 0294 - MRI BRAIN WO IVCON / PROCEDURE REASON: Vertigo * * * * Physician Interpretation * * * * COMPARISONS: Head CT from 10/12/2021. HISTORY: Vertigo. TECHNIQUE: MRI brain without contrast. MRA neck carotids. MRA [place]. MQ: [id number] RESULT: MRI BRAIN: [...] skull base. MRA NECK CAROTIDS AND MRA [place]: Irregularity of vessels suggesting atherosclerosis. Most significant disease is identified at bilateral TELEPHONE APPOINTMENT CLERK with high-grade stenosis at proximal left P2 segment and long segment nonvisualization of vessel at distal P1 and proximal P2 right TELEPHONE APPOINTMENT CLERK. This likely represents atherosclerotic disease and may [...] MRI brain. 2. High-grade stenosis at bilateral TELEPHONE APPOINTMENT CLERK as detailed. 3. Patent remaining extra/intracranial MRA. Bereavement Counselor: PSCB Transcribe Date/Time: Dec 28 2021 11:13A Dictated [...] Abs Lymph 1.00 - 4.00 k/uL 1.73 Motley% % 11.3 Abs Motley <0.87 k/uL 0.78 Eosin% % 1.3 Abs [...] and neck completed noting only high grade TELEPHONE APPOINTMENT CLERK narrowing but no findings to correlate with patient's symptoms. Note, she is currently taking Eliquis, lipitor, and ASA. Discussed importance of medication compliance, healthy diet, and BP/lipid management. Outpatient electronic device monitor also ordered with finding of Afib RVR, one pause, and SVT. Patient has since had follow up with her manager portable and medication adjustments were made. She will continue to follow with her manager portable regarding medications. Aspreviously noted, unable to complete [...] lead to decreased blood pressure and lightheadedness. [facility] on 01/10/22 HOME SLEEP APNEA TEST (HSAT) CONSULT TO NEUROLOGY Melvina Johnson APRN.ALTERNATIVE ENERGY TECHNICIAN I spent a total of 45 minutes on the date of the service which included preparing to see the patient, [id number] patient care, completing clinical documentation, obtaining and/or reviewing separately obtained history, performing a medically appropriate examination, counseling and educating the pat ient/family/caregiver and ordering medications, tests, or procedures. [facility] this [facility] History of Present illness Narrative* Lizette Dykes [...] be CANCELLED due to provider unavailable) PLEASECALL DAUGHTER TOÑO [phone] TOMORROW 05/10/22. Thank you Spoke with patient's daughter Toño and validated involvement in this patient's care. Agreed to phone call follow ups. Instructed on ordered labs and need for follow up appointment . Toño will discuss with patient and agreed to have oracle ebs consultant call tomorrow. Patient goes to counseling and has life alert (hx of fall this year, on anticoagulation). Enroll in inSight with [facility] [phone] Last Bal Denise MD visit 03/19/22 Hospital follow up from [facility] - ablation Consult: IRENE and CARD BMP, CBC and Return to Care in 4 weeks - had to be rescheduled Patient referred by: C John Contact made with patient: Yes - Patient identified by name and . Discussed care with daughter Rosario this is Lizette Dykes RN and I am calling from [facility]. I am a RN Custom Leather Products Maker with our inSight Chronic Disease Management program. [...] few questions once a week through your [employer] account. It will automaticallyshow up for you [...] goal align with programs offered at the [facility]? No Patient accepts telephonic outreach Thank you [...] stressful. Can we connect you with a [facility] Health Fast Food Shift Lead to find a program that could help [...] from today s date) documented in this encounterV[facility]05-01-2022 History of Present illness Narrative* Lizette Dykes RN - 05/29/2022 8:22 AM EDT inSight CDM Escalation Follow Up Action/FYI: Did not go to Emergency Department, daughter Toño will check on patient today and will call [facility] [phone] for worsening or new symptoms or if [...] patient - they agreed to go to [facility]. Disposition: Patient stable no further interventions documented in this encounterV[facility]05-01-2022 History of Present illness Narrative* Lizette Dykes RN - 06/20/2022 12:11 PM EDT INSIGHT CDM TELEPHONIC OUTREACH Provider Action/FYI: inSight outreach deferred - Bal Denise MD appointment today Next inSight outreach in 2 weeks Appointments for Next 60 Days Date Time Provider Location Dept Phone 06/20/2022 8:20 AM BAL DENISE [facility] JANE [phone] 06/27/2022 8:20 AM BAL DENISE [facility] JANE [phone] Contact made with patient: n/a documented in this [facility]04-26-2022 Miscellaneous Notes* Telephone Encounter - Liz Esparza - 01/02/2022 1:33 PM EDT This staff LVM for patient checking on her after ER visit. documented in this [facility]04-22-2022 Miscellaneous Notes* Telephone Encounter - Liz Esparza - 12/29/2021 1:47 PM EDT Cardiology consult placed by Dr. Morales documented in this [facility]04-01-2022 Nurse Note* Kathy Pennington LPN - 12/08/2021 11:19 AM EDT EVENT MONITOR DISPOSABLE PATCH INSTRUCTIONS Patient Name: Tanya Sanchez [facility] Number: [id number] Skin prepped and cleansed with alcohol Patch secured to prepped area Monitor Activated Serial #: [id number] Patient Instructed: 1.) Prescribed order timeframe 2.) Bathing guidelines 3.) Usage of event button and diary documentation 4.) Return of monitor at the end of prescribed order 5.) Call with problems [phone] or [phone] ext. [phone] Patient expresses a good understanding of instructions Kathy Pennington LPN documented in this [facility]04-01-2022 History of Present illness Narrative* Bal [...] for the day. States diagnosis was in [place]. When asked about details of events, patient [...] base and imaged soft tissues are unremarkable. Intake Rn (topogram) images: No additional findings. States last [...] 10/12/2021 22 ALT (U/L) Date Value 10/12/2021 MEDICATIONS: famotidine (PEPCID) 20 mg tablet Take [...] Take 1 tablet by mouth once daily. zjzqwavq-[id number]-MX-calcium-mins (ONE-A-DAY WOMENS FORMULA) 18 mg iron-400 mcg-500 [...] congestion absent, no oral lesions, membranes moist. Rakesh exam limited due to wax build up. [...] symmetric, plantar stimulation is mute. Coordination: FNF, THANH, HTS intact. No tremors. Sensation: Light touch [...] placed as pt wanting totransition to new manager portable. -Orthostatics negative in office today, but will [...] which included preparing to see the patient, [id number] patient care, completing clinical documentation, obtaining and/or reviewing separately obtained history, performing a medically appropriate examination, counseling and educating the pat ient/family/caregiver, ordering medications, tests, or procedures, independently interpreting results (not separately reported) and communicating results to the patient/family/caregiver. documented in this encounterV[facility]03-25-2022 Miscellaneous Notes* Telephone Encounter - Bharti Pickett LPN - 12/01/2021 12:52 PM EDT Copy for chart. Daughter notified and will fruit or nut picker copy in medical records. * Telephone Encounter - Edwina Martino Ma - 12/01/2021 9:00 AM EDT Form placed on provider desk for signature. * Telephone Encounter - Bal Denise MD - 11/30/2021 4:45 PM EDT Do we have dnr form * Telephone Encounter - Loyda Moffett RN - 11/30/2021 3:15 PM EDT Daughter (Toño) calls to report that the aide coming in to see patient with [facility] was discussing code status with patient. Patient reports that she wants to be a DNRCC and Toño reports that [place] is requesting a DNR form be completed by provider to have in the home. Toño said to please call her with any questions at [phone]. Please review and advise, Loyda Moffett RN documented in this encounterV[facility]01-07-2020 History of Past illness Narrative* Problem Noted Date Resolved Date Obesity, Class II, BMI 35-39.9 09/15/2019 1 Thyroid condition 09/18/2021 documented as of this encounter (statuses as of 12/01/2021) [facility] Narrative* Problem Noted Date Resolved Date Obesity, Class II, BMI 35-39.9 09/15/2019 1 Thyroid condition 09/18/2021 documented as of this encounter (statuses as of 12/08/2021) [facility] of [facility] Narrative* Problem Noted Date Resolved Date Obesity, Class II, BMI 35-39.9 09/15/2019 1 Thyroid condition 09/18/2021 documented as of this encounter (statuses as of 12/29/2021) [address] History of Past illness Narrative* Problem Noted Date Resolved Date Obesity, Class II, BMI 35-39.9 09/15/2019 1 Thyroid condition 09/18/2021 documented as of this encounter (statuses as of 01/02/2022) [address] History of Past illness Narrative* Problem Noted Date Resolved Date Obesity, Class II, BMI 35-39.9 09/15/2019 1 Thyroid condition 09/18/2021 documented as of this encounter (statuses as of 01/16/2022) [address]-2020 History of Past illness Narrative* Problem Noted Date Resolved Date Obesity, Class II, BMI 35-39.9 09/15/2019 1 Thyroid condition 09/18/2021 documented as of this encounter (statuses as of 01/29/2022) [address]2020 History of Past illness Narrative* Problem Noted Date Resolved Date Obesity, Class II, BMI 35-39.9 09/15/2019 1 Thyroid condition 09/18/2021 documented as of this encounter (statuses as of 02/16/2022) [address]2020 History of Past illness Narrative* Problem Noted Date Resolved Date Obesity, Class II, BMI 35-39.9 09/15/2019 1 Thyroid condition 09/18/2021 documented as of this encounter (statuses as of 02/16/2022) [address]2020 History of Past illness Narrative* Problem Noted Date Resolved Date Obesity, Class II, BMI 35-39.9 09/15/2019 1 Thyroid condition 09/18/2021 documented as of this encounter (statuses as of 03/09/2022) [address] History of Past illness Narrative* Problem Noted Date Resolved Date Obesity, Class II, BMI 35-39.9 09/15/2019 1 Thyroid condition 09/18/2021 documented as of this encounter (statuses as of 03/16/2022) [facility] Narrative* Problem Noted Date Resolved Date Obesity, Class II, BMI 35-39.9 09/15/2019 1 Thyroid condition 09/18/2021 documented as of this encounter (statuses as of 03/19/2022) [address] History of Past illness Narrative* Problem Noted Date Resolved Date Obesity, Class II, BMI 35-39.9 09/15/2019 1 Thyroid condition 09/18/2021 documented as of this encounter (statuses as of 03/20/2022) [facility] Narrative* Problem Noted Date Resolved Date Obesity, Class II, BMI 35-39.9 09/15/2019 1 Thyroid condition 09/18/2021 documented as of this encounter (statuses as of 03/21/2022) [facility] Narrative* Problem Noted Date Resolved Date Obesity, Class II, BMI 35-39.9 09/15/2019 1 Thyroid condition 09/18/2021 documented as of this encounter (statuses as of 03/22/2022) [facility] Narrative* Problem Noted Date Resolved Date Obesity, Class II, BMI 35-39.9 09/15/2019 1 Thyroid condition 09/18/2021 documented as of this encounter (statuses as of 04/20/2022) [facility] Narrative* Problem Noted Date Resolved Date Obesity, Class II, BMI 35-39.9 09/15/2019 1 Thyroid condition 09/18/2021 documented as of this encounter (statuses as of 05/01/2022) [facility] Narrative* Problem Noted Date Resolved Date Obesity, Class II, BMI 35-39.9 09/15/2019 1 Thyroid condition 09/18/2021 documented as of this encounter (statuses as of 05/04/2022) [address] History of Past illness Narrative* Problem Noted Date Resolved Date Obesity, Class II, BMI 35-39.9 09/15/2019 1 Thyroid condition 09/18/2021 documented as of this encounter (statuses as of 05/09/2022) [facility] Narrative* Problem Noted Date Resolved Date Obesity, Class II, BMI 35-39.9 09/15/2019 1 Thyroid condition 09/18/2021 documented as of this encounter (statuses as of 05/28/2022) [facility] Narrative* Problem Noted Date Resolved Date Obesity, Class II, BMI 35-39.9 09/15/2019 1 Thyroid condition 09/18/2021 documented as of this encounter (statuses as of 05/28/2022) [facility] Narrative* Problem Noted Date Resolved Date Obesity, Class II, BMI 35-39.9 09/15/2019 1 Thyroid condition 09/18/2021 documented as of this encounter (statuses as of 05/29/2022) [address] History of Past illness Narrative* Problem Noted Date Resolved Date Obesity, Class II, BMI 35-39.9 09/15/2019 1 Thyroid condition 09/18/2021 documented as of this encounter (statuses as of 05/30/2022) [facility] Narrative* Problem Noted Date Resolved Date Obesity, Class II, BMI 35-39.9 09/15/2019 1 Thyroid condition 09/18/2021 documented as of this encounter (statuses as of 06/06/2022) [facility] Narrative* Problem Noted Date Resolved Date Obesity, Class II, BMI 35-39.9 09/15/2019 1 Thyroid condition 09/18/2021 documented as of this encounter (statuses as of 06/12/2022) [address]2020 History of Past illness Narrative* Problem Noted Date Resolved Date Obesity, Class II, BMI 35-39.9 09/15/2019 1 Thyroid condition 09/18/2021 documented as of this encounter (statuses as of 06/19/2022) [address]2020 History of Past illness Narrative* Problem Noted Date Resolved Date Obesity, Class II, BMI 35-39.9 09/15/2019 1 Thyroid condition 09/18/2021 documented as of this encounter (statuses as of 06/20/2022) [address] History of Past illness Narrative* Problem Noted Date Resolved Date Obesity, Class II, BMI 35-39.9 09/15/2019 1 Thyroid condition 09/18/2021 documented as of this encounter (statuses as of 06/27/2022) [address] History of Past illness Narrative* Problem Noted Date Resolved Date Obesity, Class II, BMI 35-39.9 09/15/2019 1 Thyroid condition 09/18/2021 documented as of this encounter (statuses as of 07/04/2022) [address] History of Past illness Narrative* Problem Noted Date Resolved Date Obesity, Class II, BMI 35-39.9 09/15/2019 1 Thyroid condition 09/18/2021 documented as of this encounter (statuses as of 07/18/2022) [address] History of Past illness Narrative* Problem Noted Date Resolved Date Obesity, Class II, BMI 35-39.9 09/15/2019 1 Thyroid condition 09/18/2021 documented as of this encounter (statuses as of 07/18/2022) [address] History of Past illness Narrative* Problem Noted Date Resolved Date Obesity, Class II, BMI 35-39.9 09/15/2019 1 Thyroid condition 09/18/2021 documented as of this encounter (statuses as of 08/27/2022) [address] History of Past illness Narrative* Problem Noted Date Resolved Date Obesity, Class II, BMI 35-39.9 09/15/2019 1 Thyroid condition 09/18/2021 documented as of this encounter (statuses as of 08/28/2022) [address] History of Past illness Narrative* Problem Noted Date Resolved Date Obesity, Class II, BMI 35-39.9 09/15/2019 1 Thyroid condition 09/18/2021 documented as of this encounter (statuses as of 09/09/2022) [facility] Narrative* Problem Noted Date Resolved Date Obesity, Class II, BMI 35-39.9 09/15/2019 1 Thyroid condition 09/18/2021 documented as of this encounter (statuses as of 09/24/2022) [facility] Narrative* Problem Noted Date Resolved Date Obesity, Class II, BMI 35-39.9 09/15/2019 1 Thyroid condition 09/18/2021 documented as of this encounter (statuses as of 09/25/2022) [facility] Narrative* Problem Noted Date Resolved Date Obesity, Class II, BMI 35-39.9 09/15/2019 1 Thyroid condition 09/18/2021 documented as of this encounter (statuses as of 10/08/2022) [facility] Narrative* Problem Noted Date Resolved Date Obesity, Class II, BMI 35-39.9 09/15/2019 1 Thyroid condition 09/18/2021 documented as of this encounter (statuses as of 10/08/2022) [facility] Narrative* Problem Noted Date Resolved Date Obesity, Class II, BMI 35-39.9 09/15/2019 1 Thyroid condition 09/18/2021 documented as of this encounter (statuses as of 10/09/2022) [facility] Narrative* Problem Noted Date Resolved Date Obesity, Class II, BMI 35-39.9 09/15/2019 1 Thyroid condition 09/18/2021 documented as of this encounter (statuses as of 10/22/2022) [facility] Narrative* Problem Noted Date Resolved Date Obesity, Class II, BMI 35-39.9 09/15/2019 1 Thyroid condition 09/18/2021 documented as of this encounter (statuses as of 11/01/2022) [facility] Narrative* Problem Noted Date Resolved Date Obesity, Class II, BMI 35-39.9 09/15/2019 1 Thyroid condition 09/18/2021 documented as of this encounter (statuses as of 11/01/2022) [address] History of Past illness Narrative* Problem Noted Date Resolved Date Obesity, Class II, BMI 35-39.9 09/15/2019 1 Thyroid condition 09/18/2021 documented as of this encounter (statuses as of 11/16/2022) [address]2020 History of Past illness Narrative* Problem Noted Date Resolved Date Obesity, Class II, BMI 35-39.9 09/15/2019 1 Thyroid condition 09/18/2021 documented as of this encounter (statuses as of 12/11/2022) [address]2020 History of Past illness Narrative* Problem Noted Date Resolved Date Obesity, Class II, BMI 35-39.9 09/15/2019 1 Thyroid condition 09/18/2021 documented as of this encounter (statuses as of 12/17/2022) [address]07[address]2020 History of Past illness Narrative* Problem Noted Date Resolved Date Obesity, Class II, BMI 35-39.9 09/15/2019 1 Thyroid condition 09/18/2021 documented as of this encounter (statuses as of 01/15/2023) [address]2020 History of Past illness Narrative* Problem Noted Date Resolved Date Obesity, Class II, BMI 35-39.9 09/15/2019 1 Thyroid condition 09/18/2021 documented as of this encounter (statuses as of 01/15/2023) [address]2020 History of Past illness Narrative* Problem Noted Date Resolved Date Obesity, Class II, BMI 35-39.9 09/15/2019 1 Thyroid condition 09/18/2021 documented as of this encounter (statuses as of 01/16/2023) [address]2020 History of Past illness Narrative* Problem Noted Date Resolved Date Obesity, Class II, BMI 35-39.9 09/15/2019 1 Thyroid condition 09/18/2021 documented as of this encounter (statuses as of 02/13/2023) [facility] Narrative* Problem Noted Date Resolved Date Obesity, Class II, BMI 35-39.9 09/15/2019 1 Thyroid condition 09/18/2021 documented as of this encounter (statuses as of 02/21/2023) [facility] Narrative* Problem Noted Date Resolved Date Obesity, Class II, BMI 35-39.9 09/15/2019 1 Thyroid condition 09/18/2021 documented as of this encounter (statuses as of 02/22/2023) [facility] Narrative* Problem Noted Date Resolved Date Obesity, Class II, BMI 35-39.9 09/15/2019 1 Thyroid condition 09/18/2021 documented as of this encounter (statuses as of 03/04/2023) [facility] Narrative* Problem Noted Date Diagnosed Date Resolved Date Obesity, Class II, BMI 35-39.9 09/15/2019 06/23/2020 Thyroid condition 09/18/2021 documented as of this encounter (statuses as of 03/20/2023) [facility] Narrative* Problem Noted Date Diagnosed Date Resolved Date Obesity, Class II, BMI 35-39.9 09/15/2019 06/23/2020 Thyroid condition 09/18/2021 documented as of this encounter (statuses as of 04/03/2023) [facility] Narrative* Problem Noted Date Diagnosed Date Resolved Date Obesity, Class II, BMI 35-39.9 09/15/2019 06/23/2020 Thyroid condition 09/18/2021 documented as of this encounter (statuses as of 04/09/2023) [facility]ments Appointment Date:06/14/2022 11:30:00 AM Scheduled Provider: Location:[facility] Appointment Type:[facility] Evaluation note* Diagnosis Vertigo- Primary Dizziness and giddiness Lightheadedness Dizziness and giddiness History of coronary artery disease Personal history of other diseases of circulatory system Pseudoseizure Other convulsions Memory problem Memory loss [facility] Diagnosis Vertigo- Primary Dizziness and giddiness Lightheadedness Dizziness and giddiness History of coronary artery disease Personal history of other diseases of circulatory system Pseudoseizures (HCC) Other convulsions Memory problem Memory loss Abdominal pain, unspecified abdominal location documented in this encounter [facility] note* Diagnosis Encounter for screening mammogram for breast cancer [facility] Diagnosis Thyroid condition Unspecified disorder of thyroid Hypothyroidism, unspecified type GERD without esophagitis Esophageal reflux [facility]* Diagnosis Acute gastric ulcer without hemorrhage or perforation- Primary Acute gastric ulcer without mention of hemorrhage, perforation, or obstruction Cellulitis of right lower extremity Cellulitis and abscess of leg, except foot Anemia, unspecified type Paroxysmal atrial fibrillation (HCC) Atrial fibrillation Stage 3 chronic kidney disease, unspecified whether stage 3a or 3b CKD (HCC) [facility]* Diagnosis Anemia, unspecified type- Primary [facility]* Diagnosis Anxiety with depression [facility]* Diagnosis CKD (chronic kidney disease) stage 1, GFR 90 ml/min or greater- Primary Chronic kidney disease, Stage I [facility]* Diagnosis Headache, unspecified headache type- Primary [facility]* Diagnosis Abdominal aortic aneurysm (AAA) without rupture [facility]* Diagnosis Essential hypertension Unspecified essential hypertension Atrial fibrillation, new onset (HCC) Atrial fibrillation Collagenous colitis Other and unspecified noninfectious gastroenteritis and colitis documented [facility]* Diagnosis Skin tear of lower leg without complication, right, initial encounter- Primary [facility]* Diagnosis Cellulitis of skin- Primary Cellulitis and abscess of unspecified site Skin tear of lower leg without complication, right, subsequent encounter Need for vaccination Need for prophylactic vaccination and inoculation against unspecified single disease [facility]* Diagnosis Cellulitis of skin- Primary Cellulitis and abscess of unspecified site Open wound of right lower extremity, subsequent encounter [facility]* Diagnosis Open wound of right lower extremity, subsequent encounter- Primary documented in this encounter [facility] Diagnosis Open wound of right lower extremity, subsequent encounter- Primary [facility] Diagnosis Anemia, unspecified type documented in this encounter [facility] note* Diagnosis Thyroid condition Unspecified disorder of thyroid Hypothyroidism, unspecified type [facility]* Diagnosis CKD (chronic kidney disease) stage 1, GFR 90 ml/min or greater- Primary Chronic kidney disease, Stage I documented [facility] this [facility]* Diagnosis Bronchitis- Primary Bronchitis, not specified as acute or chronic Alzheimer's dementia without behavioral disturbance (HCC) Alzheimer's disease Paroxysmal atrial fibrillation (HCC) Atrial fibrillation Chronic kidney disease, stage 3a (HCC) Major depressive disorder, single episode, moderate (HCC) Major depressive disorder, single episode, moderate Acute cough [facility]* Diagnosis Collagenous colitis Other and unspecified noninfectious gastroenteritis and colitis Essential hypertension Unspecified essential hypertension Atrial fibrillation, new onset (HCC) Atrial fibrillation Anxiety with depression [facility]* Diagnosis Rib pain Chest pain, unspecified Hip pain Pain in joint, pelvic region and thigh Acute left ankle pain Foot pain, left Pain in limb GERD without esophagitis Esophageal reflux [facility]* Diagnosis Left sided sciatica- Primary Sciatica TMJ dysfunction Temporomandibular joint disorders, unspecified GERD without esophagitis Esophageal reflux Hiatal hernia Diaphragmatic hernia without mention of obstruction or gangrene Fatigue, unspecified type Anxiety with depression [facility]* Diagnosis Hypokalemia- Primary Hypopotassemia Thyroid condition Unspecified disorder of thyroid Hypothyroidism, unspecified type [facility] Diagnosis Anemia, unspecified type documented [facility]* Diagnosis Hypothyroidism, acquired- Primary Unspecified hypothyroidism Thyroid condition Unspecified disorder of thyroid Hypothyroidism, unspecified type [facility]* Diagnosis Thyroid condition Unspecified disorder of thyroid Hypothyroidism, unspecified type [facility]* Diagnosis Rib pain Chest pain, unspecified Hip pain Pain in joint, pelvic region and thigh Acute left ankle pain Foot pain, left Pain in limb documented in this encounter [facility]* Diagnosis Left sided sciatica- Primary Sciatica Anxiety Anxiety state, unspecified Essential hypertension Unspecified essential hypertension documented in this encounter [facility] note* Diagnosis Left sided sciatica- Primary Sciatica documented in this encounter [facility] note* Diagnosis Essential hypertension- Primary Unspecified essential hypertension Other hyperlipidemia Hypertensive kidney disease with stage 3 chronic kidney disease, unspecified whether stage 3a or 3b CKD (HCC) Coronary artery disease involving cocopah coronary artery of cocopah heart without angina pectoris Paroxysmal atrial fibrillation [...] Other abnormal glucose documented in this encounter [facility] note* Diagnosis Hypothyroidism, unspecified type- Primary documented in this encounter [facility] note* Diagnosis Rib pain Chest pain, unspecified Hip pain Pain in joint, pelvic region and thigh Acute left ankle pain Foot pain, left Pain in limb documented in this encounter [facility] note* Diagnosis Sciatica of left side- Primary Sciatica documented in this encounter [facility] note* Diagnosis Sciatica of left side- Primary Sciatica documented in this encounter [facility] note* Diagnosis Vertigo- Primary Dizziness and giddiness Alzheimer's dementia without behavioral disturbance (HCC) Alzheimer's disease History of syncope Other specified personal history presenting hazards to health Memory loss Hearing loss, unspecified hearing loss type, unspecified laterality Dementia without behavioral disturbance (HCC) Dementia, unspecified, without behavioral disturbance Cellulitis of left lower extremity Cellulitis and abscess of leg, except foot documented in this encounter [facility] note* Diagnosis Cellulitis of skin- Primary Cellulitis and abscess of unspecified site documented in this encounter [facility] note* Diagnosis Jannie infection- Primary Candidiasis of unspecified site documented in this encounter [facility] note* Diagnosis Cellulitis of lower leg- Primary Cellulitis and abscess of leg, except foot Localized edema Edema Essential hypertension Unspecified essential hypertension [facility] Diagnosis Pain in left lower leg- Primary [facility] Diagnosis Chronic left hip pain- Primary Pain in joint, pelvic region and thigh Chronic bilateral low back pain with left-sided sciatica [facility]* Diagnosis Alzheimer's dementia without behavioral disturbance (HCC)- Primary Alzheimer's disease documented [facility] this encounter [facility]* Diagnosis Chronic bilateral low back pain with bilateral sciatica- Primary Skin tear of right lower leg without complication, initial encounter [facility]* Diagnosis Abdominal aortic aneurysm (AAA) without rupture, unspecified part ([facility]) documented [facility] this encounter [facility]* Diagnosis Syncope and collapse- Primary Hypotension, unspecified hypotension type Skin tear of right lower leg without complication, subsequent encounter Multiple abrasions Abrasion or friction burn of other, multiple, and unspecified sites, without mention of infection [facility] Diagnosis Syncope, unspecified syncope type- Primary Essential hypertension Unspecified essential hypertension Atrial fibrillation, new onset (HCC) Atrial fibrillation Coronary artery disease involving cocopah coronary artery of cocopah heart without angina pectoris Paroxysmal atrial fibrillation (HCC) Atrial fibrillation Abdominal aortic aneurysm (AAA) without rupture, unspecified part (HCC) Orthostasis Orthostatic hypotension Noninfected skin tear of right lower extremity, subsequent encounter [facility] Diagnosis Chronic bilateral low back pain with bilateral sciatica [facility]* Diagnosis Spinal stenosis of lumbar region with neurogenic claudication- Primary Spinal stenosis, lumbar region, with neurogenic claudication Chronic bilateral low back pain with bilateral sciatica Lumbar radiculopathy Thoracic or lumbosacral neuritis or radiculitis, unspecified [facility]* Diagnosis Anemia, unspecified type [facility]* Diagnosis Sepsis, due to unspecified organism, unspecified whether acute organ dysfunction present (HCC)- Primary Essential hypertension Unspecified essential hypertension Other hyperlipidemia Urinary tract infection without hematuria, site unspecified [facility] Diagnosis Hyperglycemia- Primary Other abnormal glucose [facility] Diagnosis Chronic bilateral low back pain with bilateral sciatica- Primary Coronary artery disease involving cocopah coronary artery of cocopah heart without angina pectoris Paroxysmal atrial fibrillation (HCC) Atrial fibrillation Essential hypertension Unspecified essential hypertension History of atrial fibrillation Personal history of other diseases of circulatory system documented [facility] this encounter [facility]* Diagnosis Sepsis, due to unspecified organism, unspecified whether acute organ dysfunction present (HCC)- Primary Chronic bilateral low back pain with bilateral sciatica documented [facility] this encounter [facility]* Diagnosis Chronic bilateral low back pain with bilateral sciatica documented [facility] this encounter [facility]* Diagnosis Epistaxis- Primary Current use of manager terminal anticoagulation Long-term (current) use of anticoagulants documented [facility] this encounter [facility]* Diagnosis Collagenous colitis Other and unspecified noninfectious gastroenteritis and colitis Essential hypertension Unspecified essential hypertension Atrial fibrillation, new onset (HCC) Atrial fibrillation documented in this encounter [facility] note* Diagnosis Alzheimer's dementia without behavioral disturbance (HCC)- Primary Alzheimer's disease Dementia without behavioral disturbance (HCC) Dementia, unspecified, without behavioral disturbance Neuropathy Mononeuritis of unspecified site Orthostatic hypotension documented in this encounter [facility] note* Diagnosis Coronary artery disease involving cocopah heart with angina pectoris, unspecified vessel or lesion type (HCC) [facility] N[facility] No data available for this section [facility] Note* PREET MARTINEZ MD: SIGN, VERIFY Event Display: Ablation RF-CARTO - CV Authored Date: [facility] Reason for referral (narrative)* Diagnostic Procedure Only (Routine) - Pending Review Specialty Diagnoses / Procedures Referred By Savannah t Referred To Contact BR IMAGING Diagnoses Encounter for screening mammogram for breast cancer Procedures GILBERT SCREENING SCREENING MAMMOGRAPHY BI 2-VIEW BREAST INC CAD Bal Denise MD [address] [place] [address] [facility] [address] [place] [address] Referral ID Status Reason Start Date Expiration Date Visits Requested Visits Authorized [id number] Pending Review Auto-Generat ed Referral 01/24/2022 02/23/2023 1 1 [facility] for referral (narrative)* Diagnostic Procedure Only (Routine) - Closed Specialty Diagnoses / Procedures Referred By Contac t Referred To Contact US IMAGING Diagnoses Abdominal aortic aneurysm (AAA) without rupture Procedures US DOPPLER AORTA DUP-SCAN ARTL ANA ABDL/PEL/SCROT&/RPR ORGN LMT Bal Denise MD [address] [place] [address] Us Imaging Referral ID Status Reason Start Date Expiration Date V isits Requested Visits Authorized [id number] Closed Auto-Generate d Referral 05/23/2022 06/22/2023 1 1 * Diagnostic Procedure Only (Routine) - Closed Specialty Diagnoses / Procedures Referred By Contac t Referred To Contact US IMAGING Diagnoses Abdominal aortic aneurysm (AAA) without rupture Procedures US ABD AORTA US RETROPERITONEAL REAL TIME W/IMAGE LIMITED Bal Denise MD [address] [place] [address] Us Imaging Referral ID Status Reason Start Date Expiration Date V isits Requested Visits Authorized [id number] Closed Auto-Generate d Referral 05/23/2022 06/22/2023 1 1 [facility] for referral (narrative)* Diagnostic Procedure Only (Routine) - Pending Review Specialty Diagnoses / Procedures Referred By Contac t Referred To Contact XR IMAGING Diagnoses Left sided sciatica Procedures XR LUMBAR GENERAL 3V AP/LAT/L5-S1 RADEX SPINE LUMBOSACRAL 2/3 VIEWS Bal Denise MD [address] [place] [address] Xr Imaging Referral ID Status Reason Start Date Expiration Date Visits Requested Visits Authorized [id number] Pending Review Auto-Generat ed Referral 01/14/2023 02/13/2024 1 1 [facility] for referral (narrative)* Outpatient Procedure (Routine) - Pending Review Specialty Diagnoses / Procedures Referred By Savannah tena Referred To Contact [facility] Diagnoses Asymptomatic bilateral carotid artery stenosis Procedures US CAROTID ARTERIES [facility] DUPLEX SCAN EXTRACRANIAL ART COMPL BI STUDY Bal Denise MD [address] [place] [address] [facility] [address] [address] Referral ID Status Reason Start Date Expiration Date Visits Requested Visits Authorized [id number] Pending Review Auto-Generat ed Referral 04/12/2023 04/11/2024 1 1 * Outpatient Procedure (Routine) - Closed Specialty Diagnoses / Procedures Referred By Savannah tena Referred To Contact [facility] Diagnoses Vertigo History of syncope Procedures ECG COMPLETE ECG ROUTINE ECG W/LEAST 12 LDS W/[place] [address] [place] [address] [address] Referral ID Status Reason Start Date Expiration Date V isits Requested Visits Authorized [id number] Closed Auto-Generate d Referral 04/12/2023 04/11/2024 1 1 * Diagnostic Procedure Only (Routine) - Pending Review Specialty Diagnoses / Procedures Referred By Savannah tena Referred To Contact US IMAGING Diagnoses Abdominal aortic aneurysm (AAA) without rupture, unspecified part (HCC) Procedures US ABD AORTA US RETROPERITONEAL REAL TIME W/IMAGE LIMITED Bal Denise MD [address] [place] [address] Us Imaging Referral ID Status Reason Start Date Expiration Date Visits Requested Visits Authorized [id number] Pending Review Auto-Generat ed Referral 04/12/2023 05/11/2024 1 1 * Consult, Test, Treat (Routine) - Pending Review Specialty Diagnoses / Procedures Referred By Contac t Referred To Contact Neurology Diagnoses Alzheimer's dementia without behavioral disturbance (HCC) Asymptomatic stenosis of posterior cerebral artery Vertigo History of syncope Procedures CONSULT TO NEUROLOGY OFFICE/OUTPATIENT [facility] 60-74 MINUTES Bal Denise MD [address] [place] [address] Referral ID Status Reason Start Date Expiration Date Visits Requested Visits Authorized [id number] Pending Review PCP Requested Referral 04/12/2023 04/11/2024 1 1 * Consult, Test, Treat (Routine) - Pending Review Specialty Diagnoses / Procedures Referred By Contac t Referred To Contact Cardiology Diagnoses Paroxysmal atrial fibrillation (HCC) Vertigo History of syncope Procedures CONSULT TO CARDIOLOGY OFFICE/OUTPATIENT [facility] 60-[place] [address] [place] [address] Referral ID Status Reason Start Date Expiration Date Visits Requested Visits Authorized [id number] Pending Review PCP Requested Referral 04/12/2023 04/11/2024 1 1 [facility] for referral (narrative)* Outpatient Procedure (Urgent) - Pending Review Specialty Diagnoses / Procedures Referred By Savannah t Referred [facility] Diagnoses Localized edema Procedures US LEG VEIN DVT [facility] DUP-SCAN XTR VEINS [place] [address] [place] [address] [facility] [place] [address] [place] [address] Referral ID Status Reason Start Date Expiration Date Visits Requested Visits Authorized [id number] Pending Review Auto-Generat ed Referral 05/20/2023 05/19/2024 1 1 [facility] for referral (narrative)* Diagnostic Procedure Only (Routine) - Closed Specialty Diagnoses / Procedures Referred By Contac t Referred To Contact XR IMAGING Diagnoses Chronic left hip pain Procedures XR HIP BILATERAL 5V PEL/AP/LAT EACH HIP RADEX HIPS BILATERAL WITH PELVIS MINIMUM 5 VIEWS Yanni Davidson PA-C [address] [place] [address] [place] [address] Referral ID Status Reason Start Date Expiration Date V isits Requested Visits Authorized [id number] Closed Auto-Generate d Referral 06/18/2023 07/17/2024 1 1 [facility] Diagnostic Procedure Only (Routine) - Closed Specialty Diagnoses / Procedures Referred By Savannah tena Referred To Contact US IMAGING Diagnoses Abdominal aortic aneurysm (AAA) without rupture, unspecified part (HCC) Procedures US ABD AORTA US RETROPERITONEAL REAL TIME W/IMAGE LIMITED Bal Denise MD [address] [place] [address] [place] [address] Referral ID Status Reason Start Date Expiration Date V isits Requested Visits Authorized [id number] Closed Auto-Generate d Referral 04/12/2023 05/11/2024 1 1 [facility] Summary Purpose Family History No Family History Records FoundNo Family History Records FoundNo Family History Records FoundNo Family History Records Found Advance Directives No Advanced Directives Records FoundDocuments on File Type Date Recorded Patient Quality Rep Expl anation Advance Directive(s) 10/12/2021 12:38 PM Advance Directive(s) 11/16/2019 9:53 AM Advance Directive(s) 08/27/2016 1:16 PM Advance Directive(s) 08/24/2016 8:38 AM Documents on File Type Date Recorded Patient Quality Rep Expl anation Advance Directive(s) 10/12/2021 12:38 PM Advance Directive(s) 11/16/2019 9:53 AM Advance Directive(s) 08/27/2016 1:16 PM Advance Directive(s) 08/24/2016 8:38 AM Reason for Referral Specialty Diagnoses / Procedures Referred By Savannah tena Referred To Contact Cardiology Diagnoses Lightheadedness History of coronary artery disease Procedures CONSULT TO CARDIOLOGY OFFICE/OUTPATIENT NEW HIGH MDM 60-74 MINUTES Bal Morales Jr., MD [address] [facility] [address] [place] [address] Referral ID Status Reason Start Date Expiration Date Visits Requested Visits Authorized [id number] Pending Review PCP Requested Referral 12/08/2021 12/08/2022 1 1 Specialty Diagnoses / Procedures Referred By Contac t Referred To Contact MR IMAGING Diagnoses Vertigo Procedures MRA CAROTID WO IVCON MRA, NECK; W/O CONTRAST Bal Morales Jr., MD [address] [facility] [address] [place] [address] Mr Imaging Referral ID Status Reason Start Date Expiration Date Visits Requested Visits Authorized [id number] Authorized Auto-Generat ed Referral 12/08/2021 01/07/2023 1 1 Specialty Diagnoses / Procedures Referred By Contac t Referred To Contact MR IMAGING Diagnoses Vertigo Procedures MRA BRAIN WO IVCON MRA, HEAD W/O CONTRAST Bal Morales Jr., MD [address] [facility] [address] [place] [address] Mr Imaging Referral ID Status Reason Start Date Expiration Date Visits Requested Visits Authorized [id number] Authorized Auto-Generat ed Referral 12/08/2021 01/07/2023 1 1 Specialty Diagnoses / Procedures Referred By Contac t Referred To Contact MR IMAGING Diagnoses Vertigo Procedures MRI BRAIN WO IVCON MRI BRAIN BRAIN STEM W/[place] [address] [place] [address] [address] [place] [address] Mr Imaging Referral ID Status Reason Start Date Expiration Date Visits Requested Visits Authorized [id number] Authorized Auto-Generat ed Referral 12/08/2021 01/07/2023 1 1 Specialty Diagnoses / Procedures Referred By Contac t Referred To Contact Neurology Diagnoses Pseudoseizures (HCC) Procedures CONSULT TO NEUROLOGY OFFICE/OUTPATIENT [facility] 60-74 MINUTES Mevlina Johnson, GRAPHICS ARTIST.ALTERNATIVE ENERGY TECHNICIAN [address] [facility] [place] [address] Referral ID Status Reason Start Date Expiration Date Visits Requested Visits Authorized [id number] Pending Review PCP Requested Referral 01/15/2022 01/15/2023 1 1 Specialty Diagnoses / Procedures Referred By Contac t Referred To Contact [facility] Diagnoses Memory problem Procedures HOME SLEEP APNEA TEST (HSAT) SLEEP STD AIRFLOW HRT RATE&O2 SAT EFFORT Melvina Donovan, KVNG.ALTERNATIVE ENERGY TECHNICIAN [address] [place] [address] [facility] [place] [address] [place] [address] Referral ID Status Reason Start Date Expiration Date Visits Requested Visits Authorized [id number] Pending Review Auto-Generat ed Referral 01/15/2022 01/15/2023 1 1 Specialty Diagnoses / Procedures Referred By Contac t Referred To Contact Gastroenterology Diagnoses Acute gastric ulcer without hemorrhage or perforation Procedures CONSULT TO GASTROENTEROLOGY Bal Denise MD [address] [place], [place] [id number] Referral ID Status Reason Start Date Expiration Date Visits Requested Visits Authorized [id number] Ref Not Required PCP Requested Referral 03/19/2022 03/19/2023 1 1 Specialty Diagnoses / Procedures Referred By Contac t Referred To Contact Cardiology Diagnoses Paroxysmal atrial fibrillation (HCC) Procedures CONSULT TO CARDIOLOGY Bal Denise MD [address] [place] [address] Referral ID Status Reason Start Date Expiration Date Visits Requested Visits Authorized [id number] Ref Not Required PCP Requested Referral 03/19/2022 03/19/2023 1 1 Specialty Diagnoses / Procedures Referred By Contac t Referred To Contact Diagnoses Hearing loss, unspecified hearing loss type, unspecified laterality Procedures HEARING TEST/AUDIOGRAM COMPRE AUDIOMETRY THRESHOLD Ana Zhao PA-C [address] [place], [place] [id number] [facility] [address] [place] [address] Referral ID Status Reason Start Date Expiration Date Visits Requested Visits Authorized [id number] Authorized Auto-Generat ed Referral 04/30/2023 07/29/2023 1 1 Specialty Diagnoses / Procedures Referred By Contac t Referred To Contact MR IMAGING Diagnoses Vertigo Memory loss Procedures MRI BRAIN WO IVCON MRI BRAIN BRAIN STEM W/O CONTRAST MATERIAL Ana Tucker PA-C [address] [place] [address] [place] [address] Referral ID Status Reason Start Date Expiration Date Visits Requested Visits Authorized [id number] Authorized Auto-Generat ed Referral 04/30/2023 05/29/2024 1 1 Specialty Diagnoses / Procedures Referred By Contac t Referred To Contact MR IMAGING Diagnoses Alzheimer's dementia without behavioral disturbance (HCC) Procedures MRI 3D POST PROCESSING 3D RENDERING W/INTERP&POSTPROC DIFF WORK STATION Ana Tucker PA-C [address] [place] [phone] [place] [address] Referral ID Status Reason Start Date Expiration Date V isits Requested Visits Authorized [id number] Closed Auto-Generate d Referral 07/05/2023 08/03/2024 1 1 Specialty Diagnoses / Procedures Referred By Contac t Referred To Contact Pain Management Diagnoses Chronic bilateral low back pain with bilateral sciatica Procedures CONSULT TO PAIN MGT OFFICE/OUTPATIENT [facility] MDM 60-74 MINUTES Yanni Davidson PA-C [address] [place] [address] Referral ID Status Reason Start Date Expiration Date Visits Requested Visits Authorized [id number] Pending Review PCP Requested Referral 07/11/2023 07/10/2024 1 1 Specialty Diagnoses / Procedures Referred By Contac t Referred To Contact XR IMAGING Diagnoses Chronic bilateral low back pain with bilateral sciatica Procedures XR LUMBAR GENERAL 3V AP/LAT/L5-S1 RADEX SPINE LUMBOSACRAL 2/3 VIEWS Yanni Davidson PA-C [address] [place] [address] [place] [address] Referral ID Status Reason Start Date Expiration Date V isits Requested Visits Authorized [id number] Closed Auto-Generate d Referral 07/11/2023 08/09/2024 1 1 Specialty Diagnoses / Procedures Referred By Contac t Referred To Contact Diagnoses Chronic bilateral low back pain with bilateral sciatica Yanni Davidson PA-C [address] [place] [address] Referral ID Status Reason Start Date Expiration Date Visits Re quested Visits Authorized [id number] Closed 1 1 Specialty Diagnoses / Procedures Referred By Contac t Referred To Contact MR IMAGING Diagnoses Spinal stenosis of lumbar region with neurogenic claudication Procedures MRI LUMBAR SPINE WO IVCON MRI SPINAL CANAL LUMBAR W/O CONTRAST MATERIAL Prebish, Edwina, GRAPHICS ARTIST.ALTERNATIVE ENERGY TECHNICIAN [address] [place] [address] [place] [address] Referral ID Status Reason Start Date Expiration Date Visits Requested Visits Authorized [id number] Authorized Auto-Generat ed Referral 3 08/24/2024 1 1 Additional Source Comments INFORMATION SOURCE (unrecogn ized section and content) DATE CREATED AUTHOR AUTHOR'S ORGANIZ ATION 03/30/2022 [facility] DATE CREATED AUTHOR AUTHOR'S ORGANIZ ATION 10/11/2023 [facility] DATE CREATED AUTHOR AUTHOR'S ORGANIZ ATION 10/30/2023 [facility] Source Comments (unrecognize d section and content) In the event this informatio n is protected by the Federal Confidentiality of Alcohol and Drug Abuse Patient Records regulations: The Federal rules restrict any use of the information to criminally investigate or prosecute any alcohol or drug abuse patient.[facility] AdministrationIn the event this information is protected by the Federal Confidentiality of Alcohol and Drug Abuse Patient Records regulations: The Federal rules restrict any use of the information to criminally investigate or prosecute any alcohol or drug abuse patient.[facility] AdministrationIn the event this information is protected by the Federal Confidentiality of Alcohol and Drug Abuse Patient Records regulations: The Federal rules restrict any use of the information to criminally investigate or prosecute any alcohol or drug abuse patient.[facility] AdministrationIn the event this information is protected by the Federal Confidentiality of Alcohol and Drug Abuse Patient Records regulations: The Federal rules restrict any use of the information to criminally investigate or prosecute any alcohol or drug abuse patient.[facility] AdministrationIn the event this information is protected by the Federal Confidentiality of Alcohol and Drug Abuse Patient Records regulations: The Federal rules restrict any use of the information to criminally investigate or prosecute any alcohol or drug abuse patient.[facility] AdministrationIn the event this information is protected by the Federal Confidentiality of Alcohol and Drug Abuse Patient Records regulations: The Federal rules restrict any use of the information to criminally investigate or prosecute any alcohol or drug abuse patient.[facility] AdministrationIn the event this information is protected by the Federal Confidentiality of Alcohol and Drug Abuse Patient Records regulations: The Federal rules restrict any use of the information to criminally investigate or prosecute any alcohol or drug abuse patient.[facility] AdministrationIn the event this information is protected by the Federal Confidentiality of Alcohol and Drug Abuse Patient Records regulations: The Federal rules restrict any use of the information to criminally investigate or prosecute any alcohol or drug abuse patient.[facility] AdministrationIn the event this information is protected by the Federal Confidentiality of Alcohol and Drug Abuse Patient Records regulations: The Federal rules restrict any use of the information to criminally investigate or prosecute any alcohol or drug abuse patient.[facility] AdministrationIn the event this information is protected by the Federal Confidentiality of Alcohol and Drug Abuse Patient Records regulations: The Federal rules restrict any use of the information to criminally investigate or prosecute any alcohol or drug abuse patient.[facility] AdministrationIn the event this information is protected by the Federal Confidentiality of Alcohol and Drug Abuse Patient Records regulations: The Federal rules restrict any use of the information to criminally investigate or prosecute any alcohol or drug abuse patient.[facility] AdministrationIn the event this information is protected by the Federal Confidentiality of Alcohol and Drug Abuse Patient Records regulations: The Federal rules restrict any use of the information to criminally investigate or prosecute any alcohol or drug abuse patient.[facility] AdministrationIn the event this information is protected by the Federal Confidentiality of Alcohol and Drug Abuse Patient Records regulations: The Federal rules restrict any use of the information to criminally investigate or prosecute any alcohol or drug abuse patient.[facility] AdministrationIn the event this information is protected by the Federal Confidentiality of Alcohol and Drug Abuse Patient Records regulations: The Federal rules restrict any use of the information to criminally investigate or prosecute any alcohol or drug abuse patient.[facility] AdministrationIn the event this information is protected by the Federal Confidentiality of Alcohol and Drug Abuse Patient Records regulations: The Federal rules restrict any use of the information to criminally investigate or prosecute any alcohol or drug abuse patient.[facility] AdministrationIn the event this information is protected by the Federal Confidentiality of Alcohol and Drug Abuse Patient Records regulations: The Federal rules restrict any use of the information to criminally investigate or prosecute any alcohol or drug abuse patient.[facility] AdministrationIn the event this information is protected by the Federal Confidentiality of Alcohol and Drug Abuse Patient Records regulations: The Federal rules restrict any use of the information to criminally investigate or prosecute any alcohol or drug abuse patient.[facility] AdministrationIn the event this information is protected by the Federal Confidentiality of Alcohol and Drug Abuse Patient Records regulations: The Federal rules restrict any use of the information to criminally investigate or prosecute any alcohol or drug abuse patient.[facility] AdministrationIn the event this information is protected by the Federal Confidentiality of Alcohol and Drug Abuse Patient Records regulations: The Federal rules restrict any use of the information to criminally investigate or prosecute any alcohol or drug abuse patient.[facility] AdministrationIn the event this information is protected by the Federal Confidentiality of Alcohol and Drug Abuse Patient Records regulations: The Federal rules restrict any use of the information to criminally investigate or prosecute any alcohol or drug abuse patient.[facility] AdministrationIn the event this information is protected by the Federal Confidentiality of Alcohol and Drug Abuse Patient Records regulations: The Federal rules restrict any use of the information to criminally investigate or prosecute any alcohol or drug abuse patient.[facility] AdministrationIn the event this information is protected by the Federal Confidentiality of Alcohol and Drug Abuse Patient Records regulations: The Federal rules restrict any use of the information to criminally investigate or prosecute any alcohol or drug abuse patient.[facility] AdministrationIn the event this information is protected by the Federal Confidentiality of Alcohol and Drug Abuse Patient Records regulations: The Federal rules restrict any use of the information to criminally investigate or prosecute any alcohol or drug abuse patient.[facility] AdministrationIn the event this information is protected by the Federal Confidentiality of Alcohol and Drug Abuse Patient Records regulations: The Federal rules restrict any use of the information to criminally investigate or prosecute any alcohol or drug abuse patient.[facility] AdministrationIn the event this information is protected by the Federal Confidentiality of Alcohol and Drug Abuse Patient Records regulations: The Federal rules restrict any use of the information to criminally investigate or prosecute any alcohol or drug abuse patient.[facility] AdministrationIn the event this information is protected by the Federal Confidentiality of Alcohol and Drug Abuse Patient Records regulations: The Federal rules restrict any use of the information to criminally investigate or prosecute any alcohol or drug abuse patient.[facility] AdministrationIn the event this information is protected by the Federal Confidentiality of Alcohol and Drug Abuse Patient Records regulations: The Federal rules restrict any use of the information to criminally investigate or prosecute any alcohol or drug abuse patient.[facility] AdministrationIn the event this information is protected by the Federal Confidentiality of Alcohol and Drug Abuse Patient Records regulations: The Federal rules restrict any use of the information to criminally investigate or prosecute any alcohol or drug abuse patient.[facility] AdministrationIn the event this information is protected by the Federal Confidentiality of Alcohol and Drug Abuse Patient Records regulations: The Federal rules restrict any use of the information to criminally investigate or prosecute any alcohol or drug abuse patient.[facility] AdministrationIn the event this information is protected by the Federal Confidentiality of Alcohol and Drug Abuse Patient Records regulations: The Federal rules restrict any use of the information to criminally investigate or prosecute any alcohol or drug abuse patient.[facility] AdministrationIn the event this information is protected by the Federal Confidentiality of Alcohol and Drug Abuse Patient Records regulations: The Federal rules restrict any use of the information to criminally investigate or prosecute any alcohol or drug abuse patient.[facility] AdministrationIn the event this information is protected by the Federal Confidentiality of Alcohol and Drug Abuse Patient Records regulations: The Federal rules restrict any use of the information to criminally investigate or prosecute any alcohol or drug abuse patient.[facility] AdministrationIn the event this information is protected by the Federal Confidentiality of Alcohol and Drug Abuse Patient Records regulations: The Federal rules restrict any use of the information to criminally investigate or prosecute any alcohol or drug abuse patient.[facility] AdministrationIn the event this information is protected by the Federal Confidentiality of Alcohol and Drug Abuse Patient Records regulations: The Federal rules restrict any use of the information to criminally investigate or prosecute any alcohol or drug abuse patient.[facility] AdministrationIn the event this information is protected by the Federal Confidentiality of Alcohol and Drug Abuse Patient Records regulations: The Federal rules restrict any use of the information to criminally investigate or prosecute any alcohol or drug abuse patient.[facility] AdministrationIn the event this information is protected by the Federal Confidentiality of Alcohol and Drug Abuse Patient Records regulations: The Federal rules restrict any use of the information to criminally investigate or prosecute any alcohol or drug abuse patient.[facility] AdministrationIn the event this information is protected by the Federal Confidentiality of Alcohol and Drug Abuse Patient Records regulations: The Federal rules restrict any use of the information to criminally investigate or prosecute any alcohol or drug abuse patient.[facility] AdministrationIn the event this information is protected by the Federal Confidentiality of Alcohol and Drug Abuse Patient Records regulations: The Federal rules restrict any use of the information to criminally investigate or prosecute any alcohol or drug abuse patient.[facility] AdministrationIn the event this information is protected by the Federal Confidentiality of Alcohol and Drug Abuse Patient Records regulations: The Federal rules restrict any use of the information to criminally investigate or prosecute any alcohol or drug abuse patient.[facility] AdministrationIn the event this information is protected by the Federal Confidentiality of Alcohol and Drug Abuse Patient Records regulations: The Federal rules restrict any use of the information to criminally investigate or prosecute any alcohol or drug abuse patient.[facility] AdministrationIn the event this information is protected by the Federal Confidentiality of Alcohol and Drug Abuse Patient Records regulations: The Federal rules restrict any use of the information to criminally investigate or prosecute any alcohol or drug abuse patient.[facility] AdministrationIn the event this information is protected by the Federal Confidentiality of Alcohol and Drug Abuse Patient Records regulations: The Federal rules restrict any use of the information to criminally investigate or prosecute any alcohol or drug abuse patient.[facility] AdministrationIn the event this information is protected by the Federal Confidentiality of Alcohol and Drug Abuse Patient Records regulations: The Federal rules restrict any use of the information to criminally investigate or prosecute any alcohol or drug abuse patient.[facility] AdministrationIn the event this information is protected by the Federal Confidentiality of Alcohol and Drug Abuse Patient Records regulations: The Federal rules restrict any use of the information to criminally investigate or prosecute any alcohol or drug abuse patient.[facility] AdministrationIn the event this information is protected by the Federal Confidentiality of Alcohol and Drug Abuse Patient Records regulations: The Federal rules restrict any use of the information to criminally investigate or prosecute any alcohol or drug abuse patient.[facility] AdministrationIn the event this information is protected by the Federal Confidentiality of Alcohol and Drug Abuse Patient Records regulations: The Federal rules restrict any use of the information to criminally investigate or prosecute any alcohol or drug abuse patient.[facility] AdministrationIn the event this information is protected by the Federal Confidentiality of Alcohol and Drug Abuse Patient Records regulations: The Federal rules restrict any use of the information to criminally investigate or prosecute any alcohol or drug abuse patient.[facility] AdministrationIn the event this information is protected by the Federal Confidentiality of Alcohol and Drug Abuse Patient Records regulations: The Federal rules restrict any use of the information to criminally investigate or prosecute any alcohol or drug abuse patient.[facility] AdministrationIn the event this information is protected by the Federal Confidentiality of Alcohol and Drug Abuse Patient Records regulations: The Federal rules restrict any use of the information to criminally investigate or prosecute any alcohol or drug abuse patient.[facility] AdministrationIn the event this information is protected by the Federal Confidentiality of Alcohol and Drug Abuse Patient Records regulations: The Federal rules restrict any use of the information to criminally investigate or prosecute any alcohol or drug abuse patient.[facility] AdministrationIn the event this information is protected by the Federal Confidentiality of Alcohol and Drug Abuse Patient Records regulations: The Federal rules restrict any use of the information to criminally investigate or prosecute any alcohol or drug abuse patient.[facility] AdministrationIn the event this information is protected by the Federal Confidentiality of Alcohol and Drug Abuse Patient Records regulations: The Federal rules restrict any use of the information to criminally investigate or prosecute any alcohol or drug abuse patient.[facility] AdministrationIn the event this information is protected by the Federal Confidentiality of Alcohol and Drug Abuse Patient Records regulations: The Federal rules restrict any use of the information to criminally investigate or prosecute any alcohol or drug abuse patient.[facility] AdministrationIn the event this information is protected by the Federal Confidentiality of Alcohol and Drug Abuse Patient Records regulations: The Federal rules restrict any use of the information to criminally investigate or prosecute any alcohol or drug abuse patient.[facility] AdministrationIn the event this information is protected by the Federal Confidentiality of Alcohol and Drug Abuse Patient Records regulations: The Federal rules restrict any use of the information to criminally investigate or prosecute any alcohol or drug abuse patient.[facility] AdministrationIn the event this information is protected by the Federal Confidentiality of Alcohol and Drug Abuse Patient Records regulations: The Federal rules restrict any use of the information to criminally investigate or prosecute any alcohol or drug abuse patient.[facility] AdministrationIn the event this information is protected by the Federal Confidentiality of Alcohol and Drug Abuse Patient Records regulations: The Federal rules restrict any use of the information to criminally investigate or prosecute any alcohol or drug abuse patient.[facility] AdministrationIn the event this information is protected by the Federal Confidentiality of Alcohol and Drug Abuse Patient Records regulations: The Federal rules restrict any use of the information to criminally investigate or prosecute any alcohol or drug abuse patient.[facility] AdministrationIn the event this information is protected by the Federal Confidentiality of Alcohol and Drug Abuse Patient Records regulations: The Federal rules restrict any use of the information to criminally investigate or prosecute any alcohol or drug abuse patient.[facility] AdministrationIn the event this information is protected by the Federal Confidentiality of Alcohol and Drug Abuse Patient Records regulations: The Federal rules restrict any use of the information to criminally investigate or prosecute any alcohol or drug abuse patient.[facility] AdministrationIn the event this information is protected by the Federal Confidentiality of Alcohol and Drug Abuse Patient Records regulations: The Federal rules restrict any use of the information to criminally investigate or prosecute any alcohol or drug abuse patient.[facility] AdministrationIn the event this information is protected by the Federal Confidentiality of Alcohol and Drug Abuse Patient Records regulations: The Federal rules restrict any use of the information to criminally investigate or prosecute any alcohol or drug abuse patient.[facility] AdministrationIn the event this information is protected by the Federal Confidentiality of Alcohol and Drug Abuse Patient Records regulations: The Federal rules restrict any use of the information to criminally investigate or prosecute any alcohol or drug abuse patient.[facility] AdministrationIn the event this information is protected by the Federal Confidentiality of Alcohol and Drug Abuse Patient Records regulations: The Federal rules restrict any use of the information to criminally investigate or prosecute any alcohol or drug abuse patient.[facility] AdministrationIn the event this information is protected by the Federal Confidentiality of Alcohol and Drug Abuse Patient Records regulations: The Federal rules restrict any use of the information to criminally investigate or prosecute any alcohol or drug abuse patient.[facility] AdministrationIn the event this information is protected by the Federal Confidentiality of Alcohol and Drug Abuse Patient Records regulations: The Federal rules restrict any use of the information to criminally investigate or prosecute any alcohol or drug abuse patient.[facility] AdministrationIn the event this information is protected by the Federal Confidentiality of Alcohol and Drug Abuse Patient Records regulations: The Federal rules restrict any use of the information to criminally investigate or prosecute any alcohol or drug abuse patient.[facility] AdministrationIn the event this information is protected by the Federal Confidentiality of Alcohol and Drug Abuse Patient Records regulations: The Federal rules restrict any use of the information to criminally investigate or prosecute any alcohol or drug abuse patient.[facility] AdministrationIn the event this information is protected by the Federal Confidentiality of Alcohol and Drug Abuse Patient Records regulations: The Federal rules restrict any use of the information to criminally investigate or prosecute any alcohol or drug abuse patient.[facility] AdministrationIn the event this information is protected by the Federal Confidentiality of Alcohol and Drug Abuse Patient Records regulations: The Federal rules restrict any use of the information to criminally investigate or prosecute any alcohol or drug abuse patient.[facility] AdministrationIn the event this information is protected by the Federal Confidentiality of Alcohol and Drug Abuse Patient Records regulations: The Federal rules restrict any use of the information to criminally investigate or prosecute any alcohol or drug abuse patient.[facility] AdministrationIn the event this information is protected by the Federal Confidentiality of Alcohol and Drug Abuse Patient Records regulations: The Federal rules restrict any use of the information to criminally investigate or prosecute any alcohol or drug abuse patient.[facility] AdministrationIn the event this information is protected by the Federal Confidentiality of Alcohol and Drug Abuse Patient Records regulations: The Federal rules restrict any use of the information to criminally investigate or prosecute any alcohol or drug abuse patient.[facility] AdministrationIn the event this information is protected by the Federal Confidentiality of Alcohol and Drug Abuse Patient Records regulations: The Federal rules restrict any use of the information to criminally investigate or prosecute any alcohol or drug abuse patient.[facility] AdministrationIn the event this information is protected by the Federal Confidentiality of Alcohol and Drug Abuse Patient Records regulations: The Federal rules restrict any use of the information to criminally investigate or prosecute any alcohol or drug abuse patient.[facility] AdministrationIn the event this information is protected by the Federal Confidentiality of Alcohol and Drug Abuse Patient Records regulations: The Federal rules restrict any use of the information to criminally investigate or prosecute any alcohol or drug abuse patient.[facility] AdministrationIn the event this information is protected by the Federal Confidentiality of Alcohol and Drug Abuse Patient Records regulations: The Federal rules restrict any use of the information to criminally investigate or prosecute any alcohol or drug abuse patient.[facility] AdministrationIn the event this information is protected by the Federal Confidentiality of Alcohol and Drug Abuse Patient Records regulations: The Federal rules restrict any use of the information to criminally investigate or prosecute any alcohol or drug abuse patient.[facility] AdministrationIn the event this information is protected by the Federal Confidentiality of Alcohol and Drug Abuse Patient Records regulations: The Federal rules restrict any use of the information to criminally investigate or prosecute any alcohol or drug abuse patient.[facility] AdministrationIn the event this information is protected by the Federal Confidentiality of Alcohol and Drug Abuse Patient Records regulations: The Federal rules restrict any use of the information to criminally investigate or prosecute any alcohol or drug abuse patient.[facility] Health AdministrationIn the event this information is protected by the Federal Confidentiality of Alcohol and Drug Abuse Patient Records regulations: The Federal rules restrict any use of the information to criminally investigate or prosecute any alcohol or drug abuse patient.[facility] Health AdministrationIn the event this information is protected by the Federal Confidentiality of Alcohol and Drug Abuse Patient Records regulations: The Federal rules restrict any use of the information to criminally investigate or prosecute any alcohol or drug abuse patient.[facility] Health AdministrationIn the event this information is protected by the Federal Confidentiality of Alcohol and Drug Abuse Patient Records regulations: The Federal rules restrict any use of the information to criminally investigate or prosecute any alcohol or drug abuse patient.[facility] Health AdministrationIn the event this information is protected by the Federal Confidentiality of Alcohol and Drug Abuse Patient Records regulations: The Federal rules restrict any use of the information to criminally investigate or prosecute any alcohol or drug abuse patient.[facility] Health AdministrationIn the event this information is protected by the Federal Confidentiality of Alcohol and Drug Abuse Patient Records regulations: The Federal rules restrict any use of the information to criminally investigate or prosecute any alcohol or drug abuse patient.[facility] Health AdministrationIn the event this information is protected by the Federal Confidentiality of Alcohol and Drug Abuse Patient Records regulations: The Federal rules restrict any use of the information to criminally investigate or prosecute any alcohol or drug abuse patient.[facility] Health AdministrationIn the event this information is protected by the Federal Confidentiality of Alcohol and Drug Abuse Patient Records regulations: The Federal rules restrict any use of the information to criminally investigate or prosecute any alcohol or drug abuse patient.[facility] AdministrationIn the event this information is protected by the Federal Confidentiality of Alcohol and Drug Abuse Patient Records regulations: The Federal rules restrict any use of the information to criminally investigate or prosecute any alcohol or drug abuse patient.[facility] AdministrationIn the event this information is protected by the Federal Confidentiality of Alcohol and Drug Abuse Patient Records regulations: The Federal rules restrict any use of the information to criminally investigate or prosecute any alcohol or drug abuse patient.[facility] AdministrationIn the event this information is protected by the Federal Confidentiality of Alcohol and Drug Abuse Patient Records regulations: The Federal rules restrict any use of the information to criminally investigate or prosecute any alcohol or drug abuse patient.[facility] AdministrationIn the event this information is protected by the Federal Confidentiality of Alcohol and Drug Abuse Patient Records regulations: The Federal rules restrict any use of the information to criminally investigate or prosecute any alcohol or drug abuse patient.[facility] AdministrationIn the event this information is protected by the Federal Confidentiality of Alcohol and Drug Abuse Patient Records regulations: The Federal rules restrict any use of the information to criminally investigate or prosecute any alcohol or drug abuse patient.[facility] AdministrationIn the event this information is protected by the Federal Confidentiality of Alcohol and Drug Abuse Patient Records regulations: The Federal rules restrict any use of the information to criminally investigate or prosecute any alcohol or drug abuse patient.[facility] AdministrationIn the event this information is protected by the Federal Confidentiality of Alcohol and Drug Abuse Patient Records regulations: The Federal rules restrict any use of the information to criminally investigate or prosecute any alcohol or drug abuse patient.[facility] AdministrationIn the event this information is protected by the Federal Confidentiality of Alcohol and Drug Abuse Patient Records regulations: The Federal rules restrict any use of the information to criminally investigate or prosecute any alcohol or drug abuse patient.[facility] AdministrationIn the event this information is protected by the Federal Confidentiality of Alcohol and Drug Abuse Patient Records regulations: The Federal rules restrict any use of the information to criminally investigate or prosecute any alcohol or drug abuse patient.[facility] Health AdministrationIn the event this information is protected by the Federal Confidentiality of Alcohol and Drug Abuse Patient Records regulations: The Federal rules restrict any use of the information to criminally investigate or prosecute any alcohol or drug abuse patient.[facility] AdministrationIn the event this information is protected by the Federal Confidentiality of Alcohol and Drug Abuse Patient Records regulations: The Federal rules restrict any use of the information to criminally investigate or prosecute any alcohol or drug abuse patient.[facility] AdministrationIn the event this information is protected by the Federal Confidentiality of Alcohol and Drug Abuse Patient Records regulations: The Federal rules restrict any use of the information to criminally investigate or prosecute any alcohol or drug abuse patient.[facility] Health AdministrationIn the event this information is protected by the Federal Confidentiality of Alcohol and Drug Abuse Patient Records regulations: The Federal rules restrict any use of the information to criminally investigate or prosecute any alcohol or drug abuse patient.[facility] Reason for Visit (unrecogniz ed section and content) Specialty Diagnoses / Procedures Referred By Savannah t Referred To Contact [facility] Diagnoses Left sided sciatica Procedures CONSULT TO PHYSICAL THERAPY PHYSICAL THERAPY EVALUATION HIGH COMPLEX 45 MINS THERAPEUTIC EXERCISES RE, EA 15 MIN. Bal Denise MD [address] [place] [address] [facility] [place] [address] [place] [id number] Referral ID Status Reason Start Date Expiration Date Visits Requested Visits Authorized [id number] Authorized Auto-Generat ed Referral 09/09/2022 09/08/2023 20 [...] insig ht enrollment Reason Comments ER F/U [facility] 03/12-cellulitis Reason Comments Results Reason Comments Medication Problem Reason Comments Patient Update Medication Request Reason Onset Date Comments Refill Request 04/17/2022 Reason Comments [facility] Home requesting records Reason Onset Date Comments community monitoring outreach 05/04/2022 In Sight enrollment & [facility] [phone] Reason Onset Date Comments Community Monitoring Outreach 05/09/2022 in Sight enrollment with [facility] introduction Reason Comments Escalation of Care Reason Comments Head Injury Reason Comments Radiology US Specialty Diagnoses / Procedures Referred By Contac t Referred To Contact [facility] Diagnoses Abdominal aortic aneurysm (AAA) without rupture Procedures US ABD AORTA US RETROPERITONEAL REAL TIME W/IMAGE LIMITED Bal Denise MD [address] [place] [address] [facility] Referral ID Status Reason Start Date Expiration Date V isits Requested Visits Authorized [id number] Closed Auto-Generate d Referral 05/23/2022 06/22/2023 1 1 Reason Onset Date Comments community hospital outreach 05/29/2022 in Sight escalation follow up Reason Onset Date Comments Refill Request 06/06/2022 Reason Comments Trauma Cut right leg on bed railing x 1 day Reason Comments Follow Up UC right lower leg c /o burning and redness is bigger now Reason Onset Date Comments [facility] Outreach 06/20/2022 in Sight check in call deferred Reason Comments Follow Up Reason Comments Recheck 1 week follow up- R lower leg Reason Comments Recheck 1 week follow up; c/ o burning sensation Reason Comments Consult Reason Onset Date Comments Refill Request 08/27/2022 Reason Onset Date Comments [facility] 08/28/2022 Check in call Reason Comments Patient Update Appointment Reason Onset Date Comments Refill Request 09/24/2022 Reason Onset Date Comments [facility] 09/25/2022 Check in call Reason Comments Cough Reason Onset Date Comments [facility] 10/22/2022 Check in call Reason Onset Date Comments Refill Request 11/16/2022 Reason Onset Date Comments [facility] Navigation Outreach 12/11/2022 [facility] Reason Onset Date Comments [facility] 12/14/2022 Check in call Reason Comments Pain Reason Onset Date Comments Refill Request 02/13/2023 Reason Onset Date Comments Refill Request 02/22/2023 Reason Onset Date Comments Refill Request 03/04/2023 Reason Onset Date Comments M 03/19/2023 Check in call Reason Comments Physical Therapy Reason Comments Follow Up Reason Comments Medication Request Reason Onset Date Comments CD 04/24/2023 Check in call Reason Comments New Patient Evaluation Specialty Diagnoses / Procedures Referred By Contac t Referred To Contact Neurology Diagnoses Alzheimer's dementia without behavioral disturbance (HCC) Asymptomatic stenosis of posterior cerebral artery Vertigo History of syncope Procedures CONSULT TO NEUROLOGY OFFICE/OUTPATIENT NEW HIGH MDM 60-74 MINUTES Bal Denise MD [address] [place] [address] Referral ID Status Reason Start Date Expiration Date Visits Requested Visits Authorized [id number] Pending Review PCP Requested Referral 04/12/2023 04/11/2024 1 1 Reason Comments Edema Patient reports redn ess and swelling to left LE. Reports painful the entire time as well making ambulating difficult as pain radiating into foot. Reason Comments Patient Question Reason Onset Date Comments [facility] 05/20/2023 Deferred Reason Comments Edema Reason Onset Date Comments [facility] 06/14/2023 Outreach deferre d Reason Comments Follow Up Cellulitis Reason Comments Follow Up Left leg pain. Reason Comments Leg pain Reason Comments Rx clarification Reason Onset Date Comments [facility] 07/08/2023 Check in call Reason Comments Leg Pain left ER F/U Dog scratch to right leg Reason Comments Radiology US Specialty Diagnoses / Procedures Referred By Contac t Referred To Contact [facility] Diagnoses Abdominal aortic aneurysm (AAA) without rupture, unspecified part (HCC) Procedures US ABD AORTA US RETROPERITONEAL REAL TIME W/IMAGE LIMITED Bal Denise MD [address] [place] [address] [place] [address] Referral ID Status Reason Start Date Expiration Date V isits Requested Visits Authorized [id number] Closed Auto-Generate d Referral 04/12/2023 05/11/2024 1 [...] MDM 60-74 MINUTES Yanni Davidson PA-C [address] [place] [address] Referral ID Status Reason Start Date Expiration Date Visits Requested Visits Authorized [id number] Pending Review PCP Requested Referral 07/11/2023 07/10/2024 1 1 Reason Onset Date Comments Refill Request 07/29/2023 Reason Onset Date Comments Refill Request 07/01/2023 Refill Request 07/30/2023 Reason Comments Hospital F/U Discharged on 07/29 from [facility] for sepsis r/t UTI Reason Onset Date Comments cdm 08/07/2023 Telephonic outre ach Reason Onset Date Comments Transition Of Care 07/18/2023 [facility] 07/17/23 Reason Comments Follow Up Back Pain Lower Reason Comments Epistaxis Reason Comments Epistaxis X1 day Reason Onset Date Comments Refill Request 10/21/2023 Reason Comments Follow Up Pt presented with art lobo reported increased dizziness, recent fall approx 09/29/2023. Reason Onset Date Comments Community Monitoring Outreach 10/28/2023 Fo llow up Reason Onset Date Comments Community Monitoring Outreach 10/29/2023 Fo llow up Care Teams (unrecognized sec tion and content) Inspector Raw Quartz Relationship Specialty Start Date End Date Bal Denise MD [address] [place], [place] [id number] PCP - General Family Practice 12/18/17 Jeffery Funk [address] [id number] Cardiology 07/02/18 [facility] Phys[facility] Neurology 07/02/18 [facility] 07/02/18 Inspector Raw Quartz Relationship Specialty Start Date End Date Bal Denise MD [address] [place] [address] PCP - General Family Practice 12/18/17 Good, Jeffery S [address] [place] [address] Cardiology 07/02/18 [facility] Phys[facility] Neurology 07/02/18 [facility] 07/02/18 Inspector Raw Quartz Relationship Specialty Start Date End Date Bal Denise MD [address] [place] [address] PCP - General Family Practice 12/18/17 Good, [place] S [address] [place] [address] Cardiology 07/02/18 [facility] Physician Neurology 07/02/18 [facility] 07/02/18 Inspector Raw Quartz Relationship Specialty Start Date End Date Bal Denise MD [address] [facility] [place] [address] PCP - General Family Practice 12/18/17 Good, Jeffery S [address] [place] [address], [place] [address] Cardiology 07/02/18 [facility] Physician Neurology 07/02/18 [facility] 07/02/18 Inspector Raw Quartz Relationship Specialty Start Date End Date Bal Denise MD [address] [facility] [place] [address] PCP - General Family Practice 12/18/17 Good, [place] S [address] [place] [address] Cardiology 07/02/18 [facility] Phys[facility] Neurology 07/02/18 [facility] 07/02/18 Inspector Raw Quartz Relationship Specialty Start Date End Date Mabton, Bal J, MD [address] [facility] [place] [address] PCP - General Family Practice 12/18/17 Good, [place] S [address] [place] [address] Cardiology 07/02/18 [facility] 07/02/18 [facility] 07/02/18 Inspector Raw Quartz Relationship Specialty Start Date End Date Bal Denise MD [address] [place] [address] PCP - General Family Practice 12/18/17 Good, [place] S [address] [place] [address] Cardiology 07/02/18 [facility] Neurology 07/02/18 [facility] 07/02/18 Inspector Raw Quartz Relationship Specialty Start Date End Date Bal Denise MD [address] [place] [address] PCP - General Family Practice 12/18/17 Good, [place] S [address] [place] [address] Cardiology 07/02/18 [facility] Neurology 07/02/18 [facility] 07/02/18 Inspector Raw Quartz Relationship Specialty Start Date End Date Bal Denise MD [address] [facility] [place] [address] PCP - General Family Practice 12/18/17 Good, Jeffery S [address] [place] [address] Cardiology 07/02/18 [facility] Phys[facility] Neurology 07/02/18 [facility] 07/02/18 Inspector Raw Quartz Relationship Specialty Start Date End Date Bal Denise MD [address] [facility] [place] [address] PCP - General Family Practice 12/18/17 Good, Jeffery S [address] [place] [address] Cardiology 07/02/18 [facility] Physician Neurology 07/02/18 [facility] 07/02/18 Inspector Raw Quartz Relationship Specialty Start Date End Date Bal Denise MD [address] [facility] [place] [address] PCP - General Family Practice 12/18/17 Good, Jeffery S [address] [place] [address], [place] [address] Cardiology 07/02/18 [facility] Physician Neurology 07/02/18 [facility] 07/02/18 Inspector Raw Quartz Relationship Specialty Start Date End Date Bal Denise MD [address] [facility] [place] [address] PCP - General Family Practice 12/18/17 Good, [place] S [address] [place] [address] Cardiology 07/02/18 [facility] Physician Neurology 07/02/18 [facility] 07/02/18 Inspector Raw Quartz Relationship Specialty Start Date End Date Bal Denise MD [address] [place] [address] PCP - General Family Practice 12/18/17 Good, [place] S [address] [place] [address] Cardiology 07/02/18January, Lizette Johnson RN [address] [place], [place] [id number] Processing Assistant Unspecified 05/09/22 [facility] Phys[facility] Neurology 07/02/18 [facility] 07/02/18 Inspector Raw Quartz Relationship Specialty Start Date End Date Bal Denise MD [address] [place] [address] PCP - General Family Practice 12/18/17 Good, [place] S [address] [place] [address] Cardiology 07/02/18January, Lizette Johnson RN [address] [place] [address] Processing Assistant Unspecified 05/09/22 [facility] Phys[facility] Neurology 07/02/18 [facility] 07/02/18 Inspector Raw Quartz Relationship Specialty Start Date End Date Bal Denise MD [address] [place] [address] PCP - General Family Practice 12/18/17 Good, Jeffery S [address] [place] [address] Cardiology 07/02/18January, Lizette Johnson RN [address] [place] [address] Processing Assistant Unspecified 05/09/22 [facility] Phys[facility] Neurology 07/02/18 [facility] 07/02/18 Inspector Raw Quartz Relationship Specialty Start Date End Date Bal Denise MD [address] [facility] [place] [address] PCP - General Family Practice 12/18/17 Good, Jeffery S [address] [place] [address] Cardiology 07/02/18January, Lizette Johnson RN [address] [place] [address] Processing Assistant Unspecified 05/09/22 [facility] Physician Neurology 07/02/18 [facility] 07/02/18 Inspector Raw Quartz Relationship Specialty Start Date End Date Bal Denise MD [address] [place] [address] PCP - General Family Medicine 12/18/17 Good, Jeffery S [address] [place] [address] Cardiology 07/02/18January, Lizette Johnson RN [address] [place], [place] [id number] Processing Assistant Unspecified 05/09/22 [facility] Physician Neurology 07/02/18 [facility] 07/02/18 Inspector Raw Quartz Relationship Specialty Start Date End Date Bal Denise MD [address] [place] [address] PCP - General Family Medicine 12/18/17 Good, Jeffery S [address] [place] [address] Cardiology 07/02/18January, Lizette Johnson RN [address] [place], [place] [id number] Processing Assistant Unspecified 05/09/22 [facility] Physician Neurology 07/02/18 [facility] 07/02/18 Inspector Raw Quartz Relationship Specialty Start Date End Date Bal Denise MD [address] [place], [place] [address] PCP - General Family Medicine 12/18/17 Good, [place] S [address] [place] [address] Cardiology 07/02/18January, Lizette Johnson RN [address] [place], [place] [id number] Processing Assistant Unspecified 05/09/22 [facility] Physician Neurology 07/02/18 [facility] 07/02/18 Inspector Raw Quartz Relationship Specialty Start Date End Date Bal Denise MD [address] [place] [address] PCP - General Family Medicine 12/18/17 Good, [place] S [address] [place] [address] Cardiology 07/02/18January, Lizette Johnson RN [address] [place] [address] Processing Assistant Unspecified 05/09/22 [facility] Neu[facility] Physician Neurology 07/02/18 [facility] 07/02/18 Inspector Raw Quartz Relationship Specialty Start Date End Date Bal Denise MD [address] [facility] [place] [address] PCP - General Family Medicine 12/18/17 Good, Jeffery S [address] [place] [address] Cardiology 07/02/18JanuaryLizette RN [address] [place], [place] [id number] Processing Assistant Unspecified 05/09/22 [facility] Physician Neurology 07/02/18 [facility] 07/02/18 Inspector Raw Quartz Relationship Specialty Start Date End Date Bal Denise MD [address] [facility], [place] [address] PCP - General Family Medicine 12/18/17 Good, [place] S [address] [place] [address] Cardiology 07/02/18JanuaryLizette RN [address] [place] [address] Processing Assistant Unspecified 05/09/22 [facility] Neu[facility] Physician Neurology 07/02/18 [facility] 07/02/18 Inspector Raw Quartz Relationship Specialty Start Date End Date Bal Denise MD [address] [place] [address] PCP - General Family Medicine 12/18/17 Good, [place] S [address] [place] [address] Cardiology 07/02/18JanuaryLizette RN [address] [place] [address] Processing Assistant Unspecified 05/09/22 [facility] Physician Neurology 07/02/18 [facility] 07/02/18 Inspector Raw Quartz Relationship Specialty Start Date End Date Bal Denise MD [address] [facility] [place] [address] PCP - General Family Medicine 12/18/17 Good, Jeffery S [address] [place] [address] Cardiology 07/02/18January, Lizette Johnson RN [address] [place], [place] [id number] Processing Assistant Unspecified 05/09/22 [facility] Neu[facility] Physician Neurology 07/02/18 [facility] 07/02/18 Inspector Raw Quartz Relationship Specialty Start Date End Date Bal Denise MD [address] [place] [address] PCP - General Family Medicine 12/18/17 GoodRylan grantril S [address] [place] [address] Cardiology 07/02/18January, Lizette Johnson RN [address] [place] [address] Processing Assistant Unspecified 05/09/22 [facility] Neu[facility] Physician Neurology 07/02/18 [facility] 07/02/18 Inspector Raw Quartz Relationship Specialty Start Date End Date Bal Denise MD [address] [place] [address] PCP - General Family Medicine 12/18/17 Rylan Funkril S [address] [place] [address] Cardiology 07/02/18January, Lizette Johnson RN [address] [place] [address] Processing Assistant Unspecified 05/09/22 [facility] Neu[facility] Physician Neurology 07/02/18 [facility] 07/02/18 Inspector Raw Quartz Relationship Specialty Start Date End Date Bal Denise MD [address] [place] [address] PCP - General Family Medicine 12/18/17 Good, Jeffery S [address] [place] [address] Cardiology 07/02/18January, Lizette Johnson RN [address] [place], [place] [id number] Processing Assistant Unspecified 05/09/22 [facility] Neu[facility] Physician Neurology 07/02/18 [facility] 07/02/18 Inspector Raw Quartz Relationship Specialty Start Date End Date Bal Denise MD [address] [place], [place] [address]75[address] PCP - General Family Medicine 12/18/17 Good, [place] S [address] [place] [address] Cardiology 07/02/18January, Lizette Johnson RN [address] [place], [place] [id number] Processing Assistant Unspecified 05/09/22 [facility] Physician Neurology 07/02/18 [facility] 07/02/18 Inspector Raw Quartz Relationship Specialty Start Date End Date Bal Denise MD [address] [place] [address] PCP - General Family Medicine 12/18/17 Good, Jeffery S [address] [address] Cardiology 07/02/18January, Lizette Johnson RN [address] [place] [address] Processing Assistant Unspecified 05/09/22 [facility] Neu[facility] Physician Neurology 07/02/18 [facility] 07/02/18 Inspector Raw Quartz Relationship Specialty Start Date End Date Bal Denise MD [address] [facility] [place] [address] PCP - General Family Medicine 12/18/17 Good, [place] S [address] [place] [address] Cardiology 07/02/18January, Lizette Johnson RN [address] [place], [place] [id number] Processing Assistant Unspecified 05/09/22 [facility] Neu[facility] Physician Neurology 07/02/18 [facility] 07/02/18 Inspector Raw Quartz Relationship Specialty Start Date End Date Bal Denise MD [address] [place] [address] PCP - General Family Medicine 12/18/17 Good, [place] S [address] [place] [address] Cardiology 07/02/18January, Lizette Johnson RN [address] [place] [address] Processing Assistant Unspecified 05/09/22 [facility] Neu[facility] Physician Neurology 07/02/18 [facility] 07/02/18 Inspector Raw Quartz Relationship Specialty Start Date End Date Bal Denise MD [address] [place] [address] PCP - General Family Medicine 12/18/17 Good, [place] S [address] [place] [address] Cardiology 07/02/18January, Lizette Johnson RN [address] [place] [address] Processing Assistant Unspecified 05/09/22 [facility] Neu[facility] Physician Neurology 07/02/18 [facility] 07/02/18 Inspector Raw Quartz Relationship Specialty Start Date End Date Bal Denise MD [address] [facility] [place] [address] PCP - General Family Medicine 12/18/17 Good, [place] S [address] [place] [address] Cardiology 07/02/18January, Lizette Johnson RN [address] [place] [address] Processing Assistant Unspecified 05/09/22 [facility] Neurology Physician Neurology 07/02/18 [facility] 07/02/18 Inspector Raw Quartz Relationship Specialty Start Date End Date Bal Denise MD [address] [place] [address] PCP - General Family Medicine 12/18/17 Good, [place] S [address] [place] [address], [place] [address] Cardiology 07/02/18January, Lizette Johnson RN [address] [place], [place] [id number] Processing Assistant Unspecified 05/09/22 [facility] Neurology Physician Neurology 07/02/18 [facility] 07/02/18 Inspector Raw Quartz Relationship Specialty Start Date End Date Bal Denise MD [address] [facility] [place] [address] PCP - General Family Medicine 12/18/17 Good, [place] S [address] [place] [address], [place] [address] Cardiology 07/02/18January, Lizette Johnson RN [address] [place] [address] Processing Assistant Unspecified 05/09/22 [facility] Neurology Physician Neurology 07/02/18 [facility] 07/02/18 Inspector Raw Quartz Relationship Specialty Start Date End Date Bal Denise MD [address] [place], [place] 616641 PCP - General Family Medicine 12/18/17 Jeffery Funk S [address] [place], [place] 1244[address] Cardiology 07/02/18January, Lizette Johnson RN [address] [place] [id number] Processing Assistant Unspecified 05/09/22 [facility] Neurology Physician Neurology 07/02/18 [facility] 07/02/18 Inspector Raw Quartz Relationship Specialty Start Date End Date Bal Denise MD [address] [place], [place] 026571 PCP - General Family Medicine 12/18/17 Jeffery Funk S [address] [place] [address] [id number] Cardiology 07/02/18January, Lizette Johnson RN [address] [place] [address] Processing Assistant Unspecified 05/09/22 [facility] Neurology Physician Neurology 07/02/18 [facility] 07/02/18 Inspector Raw Quartz Relationship Specialty Start Date End Date Bal Denise MD [address] [place], [place] [id number] PCP - General Family Medicine 12/18/17 Jeffery Funk S [address] [place] [address] Cardiology 07/02/18January, Lizette Johnson RN [address] [place] [address] Processing Assistant Unspecified 05/09/22 [facility] Neu[facility] Physician Neurology 07/02/18 [facility] 07/02/18 Inspector Raw Quartz Relationship Specialty Start Date End Date Bal Denise MD [address] [place], [place] 490111 PCP - General Family Medicine 12/18/17 Jeffery Funk [address] [address] Cardiology 07/02/18January, Lizette Johnson RN [address] [place] [address] Processing Assistant Unspecified 05/09/22 [facility] Neu[facility] Physician Neurology 07/02/18 [facility] 07/02/18 Inspector Raw Quartz Relationship Specialty Start Date End Date Bal Denise MD [address] [place], [place] [id number] PCP - General Family Medicine 12/18/17 Jeffery Funk [address] [id number] [phone] Cardiology 07/02/18January, Lizette Johnson RN [address] [place] [address] Processing Assistant Unspecified 05/09/22 [facility] Neu[facility] Physician Neurology 07/02/18 [facility] 07/02/18 Inspector Raw Quartz Relationship Specialty Start Date End Date Howie, Bal J, MD [address] [place], [place] 988781 PCP - General Family Medicine 12/18/17 Good, Jeff[place] S [address] [address] Cardiology 07/02/18January, Lizette Johnson RN [address] [place] [address] Processing Assistant Unspecified 05/09/22 [facility] Neu[facility] Physician Neurology 07/02/18 [facility] 07/02/18 Inspector Raw Quartz Relationship Specialty Start Date End Date Bal Denise MD [address] [place], [place] [id number] PCP - General Family Medicine 12/18/17 Good, [place] S [address] [address] [phone]- Cardiology 07/02/18January, Lizette Johnson RN [address] [place] [address] Processing Assistant Unspecified 05/09/22 [facility] Neu[facility] Physician Neurology 07/02/18 [facility] 07/02/18 Inspector Raw Quartz Relationship Specialty Start Date End Date Bal Denise MD [address] [place], [place] [id number] PCP - General Family Medicine 12/18/17 Good, [place] S [address] [facility] [address] [place], [place] [id number] Cardiology 07/02/18January, Lizette Johnson RN [address] [place], [place] [phone] Processing Assistant Unspecified 05/09/22 [facility] Neu[facility] Physician Neurology 07/02/18 [facility] 07/02/18 Inspector Raw Quartz Relationship Specialty Start Date End Date Bal Denise MD [address] [place], [place] [id number] PCP - General Family Medicine 12/18/17 GoodRylan grantril S [address] [place] [address] [phone] Cardiology 07/02/18January, Lizette Johnson RN [address] [place] [address] Processing Assistant Unspecified 05/09/22 [facility] Neurology Physician Neurology 07/02/18 [facility] 07/02/18 Inspector Raw Quartz Relationship Specialty Start Date End Date Bal Denise MD [address] [place], [place] [id number] PCP - General Family Medicine 12/18/17 Rylan Funkril S [address] [place] [address] Cardiology 07/02/18January, Lizette Johnson RN [address] [place] [address] Processing Assistant Unspecified 05/09/22 [facility] Neu[facility] Physician Neurology 07/02/18 [facility] 07/02/18 Inspector Raw Quartz Relationship Specialty Start Date End Date Bla Denise MD [address] [place], [place] [id number] PCP - General Family Medicine 12/18/17 Jeffery Funk [address] [id number] Cardiology 07/02/18January, Lizette Johnson RN [address] [place] [address] Processing Assistant Unspecified 05/09/22 [facility] Neurology Physician Neurology 07/02/18 [facility] 07/02/18 Inspector Raw Quartz Relationship Specialty Start Date End Date Bal Denise MD [address] [place], [place] [id number] PCP - General Family Medicine 12/18/17 Jeffery Funk [address] [address] Cardiology 07/02/18January, Lizette Johnson RN [address] [place] [address] Processing Assistant Unspecified 05/09/22 [facility] Neu[facility] Physician Neurology 07/02/18 [facility] 07/02/18 Inspector Raw Quartz Relationship Specialty Start Date End Date Bal Denise MD [address] [place], [place] [id number] PCP - General Family Medicine 12/18/17 Jeffery Funk MD [address] [id number] Cardiology 07/02/18January, Lizette Johnson RN [address] [place] [address] Processing Assistant Unspecified 05/09/22 [facility] Neu[facility] Physician Neurology 07/02/18 [facility] 07/02/18 Inspector Raw Quartz Relationship Specialty Start Date End Date Bal Denise MD [address] [place], [place] 794651 PCP - General Family Medicine 12/18/17 Jeffery Funk MD [address] [facility] [address] [address] Cardiology 07/02/18January, Lizette Johnson RN [address] [place] [phone] Processing Assistant Unspecified 05/09/22 [facility] Neurology Physician Neurology 07/02/18 [facility] 07/02/18 Inspector Raw Quartz Relationship Specialty Start Date End Date Bal Denise MD [address] [place], [place] [id number] PCP - General Family Medicine 12/18/17 Jeffery Funk MD [address] [facility] [address] [phone] Cardiology 07/02/18January, Lizette Johnson RN [address] [place] [address] Processing Assistant Unspecified 05/09/22 [facility] Neurology Physician Neurology 07/02/18 [facility] 07/02/18 Inspector Raw Quartz Relationship Specialty Start Date End Date Bal Denise MD [address] [place], [place] [id number] PCP - General Family Medicine 12/18/17 Jeffery Funk MD [address] [phone]- Cardiology 07/02/18January, Lizette Johnson RN [address] [place] [address] Processing Assistant Unspecified 05/09/22 [facility] Neurology Physician Neurology 07/02/18 [place] [phone] (Work) 07/02/18 Inspector Raw Quartz Relationship Specialty Start Date End Date Bal Denise MD [address] [place], [place] [id number] PCP - General Family Medicine 12/18/17 Jeffery Funk MD [address] [phone] Cardiology 07/02/18January, Lizette Johnson RN [address] [place] [address] Processing Assistant Unspecified 05/09/22 [facility] Neu[facility] Physician Neurology 07/02/18 [place] [phone] (Work) 07/02/18 Inspector Raw Quartz Relationship Specialty Start Date End Date Bal Denise MD [address] [place], [place] [id number] PCP - General Family Medicine 12/18/17 Jeffery Funk MD [address] [phone] Cardiology 07/02/18January, Lizette Johnson RN [address] [place] [address] Processing Assistant Unspecified 05/09/22 [facility] Neurology Physician Neurology 07/02/18 [facility] 07/02/18 Inspector Raw Quartz Relationship Specialty Start Date End Date Bal Denise MD [address] [place], [place] 625851 PCP - General Family Medicine 12/18/17 Jeffery Funk MD [address] [place], [place] 8[address]01 Cardiology 07/02/18January, Lizette Johnson RN [address] [place] [address] Processing Assistant Unspecified 05/09/22 [facility] Neurology Physician Neurology 07/02/18 [facility] 07/02/18 Inspector Raw Quartz Relationship Specialty Start Date End Date Bal Denise MD [address] [place] [address] PCP - General Family Medicine 12/18/17 Jeffery Funk MD [address] [place] [address], [place] [address] Cardiology 07/02/18January, Lizette Johnson RN [address] [place] [address] Processing Assistant Unspecified 05/09/22 [facility] Neurology Physician Neurology 07/02/18 [facility] 07/02/18 Inspector Raw Quartz Relationship Specialty Start Date End Date Bal Denise MD [address] [place], [place] 455911 PCP - General Family Medicine 12/18/17 Jeffery Funk MD [address] [place] [address] Cardiology 07/02/18January, Lizette Johnson RN [address] [place] [address] Processing Assistant Unspecified 05/09/22 [facility] Neurology Physician Neurology 07/02/18 [facility] 07/02/18 Inspector Raw Quartz Relationship Specialty Start Date End Date Bal Denise MD [address] [place], [place] 071891 PCP - General Family Medicine 12/18/17 Jeffery Funk MD [address] [place] [address] Cardiology 07/02/18January, Lizette Johnson RN [address] [place] [address] Processing Assistant Unspecified 05/09/22 [facility] Neurology Physician Neurology 07/02/18 [facility] 07/02/18 Inspector Raw Quartz Relationship Specialty Start Date End Date Bal Denise MD [address] [place], [place] [id number] PCP - General Family Medicine 12/18/17 Jeffery Funk MD [address] [place], [place] [id number] Cardiology 07/02/18January, Lizette Johnson RN [address] [place] [address] Processing Assistant Unspecified 05/09/22 [facility] Neu[facility] Physician Neurology 07/02/18 [facility] 07/02/18 Inspector Raw Quartz Relationship Specialty Start Date End Date Bal Denise MD [address] [place], [place] 190801 PCP - General Family Medicine 12/18/17 Jeffery Funk MD [address] [address] Cardiology 07/02/18January, Lizette Johnson RN [address] [place], [place] [phone] Processing Assistant Unspecified 05/09/22 [facility] Neurology Physician Neurology 07/02/18 [facility] 07/02/18 Inspector Raw Quartz Relationship Specialty Start Date End Date Bal Denise MD [address] [place], [place] 672551 PCP - General Family Medicine 12/18/17 Jeffery Funk MD [address] [id number] 606- Cardiology 07/02/18January, Lizette Johnson RN [address] [place], [place] [phone] Processing Assistant Unspecified 05/09/22 [facility] Neurology Physician Neurology 07/02/18 [facility] 07/02/18 Inspector Raw Quartz Relationship Specialty Start Date End Date Bal Denise MD [address] [place], [place] 594391 PCP - General Family Medicine 12/18/17 Jeffery Funk MD [address] [facility] [address] [place], [place] [phone]- Cardiology 07/02/18January, Lizette Johnson RN [address] [place], [place] [id number] Processing Assistant Unspecified 05/09/22 [facility] Neurology Physician Neurology 07/02/18 [facility] 07/02/18 Inspector Raw Quartz Relationship Specialty Start Date End Date Bal Denise MD [address] [place], [place] [id number] PCP - General Family Medicine 12/18/17 Jeffery Funk MD [address] [place] [address] [phone] Cardiology 07/02/18January, Lizette Johnson RN [address] [place] [address] Processing Assistant Unspecified 05/09/22 [facility] Neurology Physician Neurology 07/02/18 [facility] 07/02/18 Inspector Raw Quartz Relationship Specialty Start Date End Date Bal Denise MD [address] [place], [place] [id number] PCP - General Family Medicine 12/18/17 Jeffery Funk MD [address] [place] [address] Cardiology 07/02/18January, Lizette Johnson RN [address] [place] [address] Processing Assistant Unspecified 05/09/22 [facility] Neurology Physician Neurology 07/02/18 [facility] 07/02/18 Inspector Raw Quartz Relationship Specialty Start Date End Date Bal Denise MD [address] [place] [address] PCP - General Family Medicine 12/18/17 Jeffery Funk MD [address] [place] [address] Cardiology 07/02/18January, Lizette Johnson RN [address] [place], [place] [id number] Processing Assistant Unspecified 05/09/22 [facility] Neurology Physician Neurology 07/02/18 [facility] 07/02/18 Inspector Raw Quartz Relationship Specialty Start Date End Date Bal Denise MD [address] [place] [address] PCP - General Family Medicine 12/18/17 Jeffery Funk MD [address] [place] [address] Cardiology 07/02/18January, Lizette Johnson RN [address] [place] [address] Processing Assistant Unspecified 05/09/22 [facility] Neurology Physician Neurology 07/02/18 [facility] 07/02/18 Inspector Raw Quartz Relationship Specialty Start Date End Date Bal Denise MD [address] [place] [address] PCP - General Family Medicine 12/18/17 Jeffery Funk MD [address] [place] [address] Cardiology 07/02/18JanuaryLizette RN [address] [place] [address] Processing Assistant Unspecified 05/09/22 [facility] Neurology Physician Neurology 07/02/18 [facility] 07/02/18 Care Team (unrecognized sect ion and content) Care Team Personnel Name: BAL DENISE MD Member Role: Primary Care Physician Address: Address: [address] Care Team Related Persons Name: GENE [...] BE BASED ON THE PRIMARY CLINICAL RECORDS. [facility] [employer] provides no warranty or guarantee of the accuracy or completeness of information in this document.
[2023-11-01 21:16] LABS: Squamous Epithelial Cells - UA 0-5 SEEN /hpf (5-10); White Blood Cells 0-5 SEEN /hpf (0-5)
[2023-11-01 22:00] VITALS: BP 189/82; PULSE 74; RESP 18
[2023-11-01 23:54] VITALS: BP 161/94; PULSE 72; RESP 16; TEMP 36.9; O2SAT 96
== END 2023-11-01 23:55 | disposition home or self-care (01) ==
PROVIDERS: Emergency Provider Emergency Medicine; PCP Family Medicine; Visit Provider Emergency Medicine
DX: S81.812A Laceration without foreign body, left lower leg, initial encounter (principal); G30.9 Alzheimer's disease, unspecified; I48.0 Paroxysmal atrial fibrillation; D68.9 Coagulation defect, unspecified; N18.32 Chronic kidney disease, stage 3b; I12.9 Hypertensive chronic kidney disease with stage 1 through stage 4 chronic kidney disease, or unspecified chronic kidney disease; W18.39XA Other fall on same level, initial encounter; Y93.K1 Activity, walking an animal; Y92.89 Other specified places as the place of occurrence of the external cause; I25.10 Atherosclerotic heart disease of native coronary artery without angina pectoris; E78.5 Hyperlipidemia, unspecified; Z79.01 Long term (current) use of anticoagulants; Z86.73 Personal history of transient ischemic attack (TIA), and cerebral infarction without residual deficits; K21.9 Gastro-esophageal reflux disease without esophagitis; Z79.899 Other long term (current) drug therapy; Z79.82 Long term (current) use of aspirin; F41.9 Anxiety disorder, unspecified; E03.9 Hypothyroidism, unspecified
CPT/HCPCS: 70450; 80048; 81001; 85025; 93005; 99284; A4216

== ENCOUNTER 2024-01-09 11:28 | Emergency (ER) | payer MEDICARE, MEDICAID, SELFPAY ==
[2024-01-09 11:30] VITALS: PULSE 81; RESP 16; TEMP 36.4; O2SAT 97
[2024-01-09] MEDS: oxyCODONE 5 MG Tablet PO (12:46)
[2024-01-09] MEDS: predniSONE 20 MG Tablet 40 MG PO (12:46)
--- NOTE | 2024-01-09 12:50 | RAD_ITS ---
STUDY: X-RAY - LUMBAR SPINE REASON FOR EXAM: Female, 78 years old. Chronic low back pain. TECHNIQUE: 3 view(s) of the lumbar spine were obtained. COMPARISON: None FINDINGS: Normal lumbar lordosis. There is no substantial scoliosis. Minimal anterolisthesis of L4 on L5. Degenerative changes of the sacroiliac joints bilaterally. Normal vertebral bodies and endplates. Mild degree of disc space narrowing at the L5-S1 level. The soft tissue structures are unremarkable. RAD/Lumbar Spine 2 or 3 Views IMPRESSION: Minimal anterolisthesis of L4 on L5. Mild degree of disc space narrowing at the L5-S1 level. Degenerative changes of the sacroiliac joints bilaterally. Electronically Signed: Geoffrey Lezama MD at 13:27 EDT ,
--- NOTE | 2024-01-09 14:13 | EDS_ITS ---
HPI History of Present Illness Chief Complaint: Back Informant: patient and family Onset/Context/Timing Onset: Days Context: Gradual Onset Narrative Narrative: Patient presents with acute on chronic back pain. She has a history of chronic back pain and follows with pain management. Daughter states patient called her this morning crying because her back pain was very severe with radiation down her left leg. There is been no new fall or injury. She is prescribed tramadol which she takes 1 tablet at night only. Daughter states that she called both pain management as well as primary care physician and neither 1 were comfortable writing her anything further for pain and recommended she come to the emergency room. [facility] Medical History Acute gastric ulcer Alzheimer's dementia Anemia Anxiety Arthritis Atherosclerosis of coronary artery of mechoopda heart without angina pectoris Cardiology follow-up encounter Chronic anticoagulation Chronic cough Coagulopathy Difficulty swallowing Easy bruising Essential (primary) hypertension Excessive bleeding Fatty liver Gastric reflux GERD (gastroesophageal reflux disease) Hiatal hernia History of atrial fibrillation History of echocardiogram History of edema History of heart attack History of Holter monitoring History of IBS History of renal disease History of stress test HLD (hyperlipidemia) Hypertension Hypothyroidism Iron deficiency Low iron Non-smoker Obesity (BMI 30-39.9) Open wound Orthostatic hypotension Paroxysmal A-fib Paroxysmal atrial fibrillation Pseudoseizures Schatzki's ring Shortness of breath on exertion Stage 3b chronic kidney disease (CKD) Syncope Syncope TIA (transient ischemic attack) Wears dentures Wears glasses Home Medications budesonide 3 mg capsule,delayed,extended release 9 mg PO DAILY ASTHMA 06/08/20 [History Last Taken 07/16/23] ferrous sulfate 325 mg (65 mg iron) tablet 325 mg PO BID SUPPLEMENT 05/11/22 [History Last Taken 07/16/23] pantoprazole 40 mg tablet,delayed release 40 mg PO BID ACID REFLUX 05/11/22 [History Last Taken 07/16/23] atorvastatin 20 mg tablet 20 mg PO QHS CHOLESTEROL #90 tabs 04/09/23 [Rx Last Taken 07/15/23] acetaminophen 650 mg tablet,extended release (Tylenol Arthritis Pain) 650 mg PO Q12H PRN ARTHRITIS 07/16/23 [History Last Taken Unknown] apixaban 5 mg tablet 5 mg PO BID BLOOD THINNER 07/16/23 [History Last Taken 07/16/23] aspirin 81 mg tablet,delayed release 81 mg PO DAILY BLOOD THINNER 07/16/23 [History Last Taken 07/16/23] buspirone 5 mg tablet 5 mg PO TID ANXIETY 07/16/23 [History Last Taken 07/16/23] levothyroxine 100 mcg tablet 100 mcg PO DAILY THYROID 07/16/23 [History Last Taken 07/16/23] sertraline 100 mg tablet 100 mg PO QHS DEPRESSION 07/16/23 [History Last Taken 07/15/23] tramadol 50 mg tablet 50 mg PO Q6H PRN PAIN 07/16/23 [History Last Taken 07/16/23] oxycodone 5 mg tablet 5 mg PO BID PRN pain 3 days #7 tabs 01/09/24 [Rx Last Taken Unknown] prednisone 20 mg tablet 40 mg (2 x 20 mg) PO DAILY #8 tabs 01/09/24 [Rx Last Taken Unknown] Allergy/AdvReac Type Severity Reaction Status Date / Time procaine [From Novocain] AdvReac Other Verified 01/09/24 11:31 Family History Mother Heart disease Father Heart disease Alcoholism Surgical History H/O cardiac radiofrequency ablation H/O coronary artery bypass surgery (01/29/08) History of colonoscopy History of esophagogastroduodenoscopy (EGD) History of left heart catheterization (01/12/19) Status post ablation of atrial fibrillation Social History household members: none Smoking Status: Never smoker alcohol intake: never substance use type: does not use caffeine: Yes Type: coffee Number of servings: 6 ROS ROS ED Constitutional Constitutional ED: Denies chills or fever(s) Eyes Eyes: Denies discharge from eye(s) ENT ENT ED: Denies discharge from eye(s), rhinorrhea or sore throat Cardiovascular Cardiovascular: Denies chest pain or palpitations Respiratory/Chest Respiratory/Chest: Denies cough or dyspnea Gastrointestinal Gastrointestinal: Denies abdominal pain, nausea or vomiting Genitourinary Genitourinary ED: Denies dysuria Musculoskeletal Musculoskeletal: Reports back pain and extremity pain Integumentary Denies Abrasions or rash Neurologic Neurologic: Denies headache(s) or weakness Psychiatric Psychiatric: Denies anxiety or depression Allergic/Immunologic Allergic/Immunologic ED: Denies lip swelling or urticaria EXAM Physical Exam Const Vital Signs: 01/09/24 11:30 Temperature 97.6 F L Temperature Source Temporal Pulse Rate 81 Respiratory Rate 16 Pulse Ox 97 Oxygen Delivery Method Room Air Positive well nourished and well developed General Appearance ED: well developed HEENT Reports moist mucous membranes Eyes EOMs intact bilaterally Resp normal respiratory effort and clear to auscultation bilaterally Cardio regular rate and regular rhythm GI soft to palpation and non-tender Back/Spine Back/Spine Narrative: Mild tenderness in the lumbar region. No abrasions or ecchymosis. Extremity Extremity Narrative: Bilateral lower extremity edema, symmetric. Good range of motion of both lower extremities without difficulty. Good distal pulses and normal sensation. Neuro Sensorium / Orientation: alert Motor Exam: strength 5/5 throughout Skin no rashes or lesions noted MDM MDM MDM Narrative Medical decision making narrative: Patient's OARRS report was reviewed. She has been receiving tramadol. She is given a dose of oxycodone here as she does take Tylenol regularly as well as a dose of prednisone for sciatica. Lumbar spine x-rays obtained to evaluate for any acute bony abnormality. Radiography Diagnostic Testing: Clinical Impression(s) from Imaging Studies Lumbar Spine X-Ray 01/09/24 12:50 IMPRESSION: Minimal anterolisthesis of L4 on L5. Mild degree of disc space narrowing at the L5-S1 level. Degenerative changes of the sacroiliac joints bilaterally. Electronically Signed: Geoffrey Lezama MD at 13:27 EDT , Treatment and Re-Evaluation Narrative: Lumbar spine x-rays per my interpretation for chronic changes with no evidence of acute fracture or malalignment. Radiology interpretation reviewed and agrees. On repeat evaluation patient states when sitting at rest her pain is significantly improved. She still has pain when she gets up to ambulate. I will write a very short course of oxycodone which she can take twice daily as well as 4 additional days of prednisone. She was advised that she cannot take oxycodone and tramadol at the same time. Patient and daughter both comfortable with plan. Discharge Plan Triage Chief Complaint: Back ED Provider: Terra Torres Dx/Rx/DC Orders Clinical Impression: Sciatica, Back pain Instructions: ED Back Pain (Acute or Chronic), ED Sciatica Prescriptions: New oxycodone 5 mg tablet 5 mg PO BID PRN (Reason: pain) 3 Days Qty: 7 0RF prednisone 20 mg tablet 40 mg PO DAILY Qty: 8 0RF No Action pantoprazole 40 mg tablet,delayed release (DR/EC) 40 mg PO BID ferrous sulfate 325 mg (65 mg iron) tablet 325 mg PO BID budesonide 3 MG capsule,delayed,extend.release 9 mg PO DAILY buspirone 5 mg tablet 5 mg PO TID levothyroxine 100 mcg tablet 100 mcg PO DAILY tramadol 50 mg tablet 50 mg PO Q6H PRN (Reason: PAIN) Patient Comments: FILLED ON 07/11/23 AT [facility] A 7 DAY SUPPLY. Rx Instructions: TAKE ONE TABLET BY MOUTH EVERY 6 HOURS NEEDED FOR PAIN FOR UP TO 7 DAYS. sertraline 100 mg tablet 100 mg PO QHS acetaminophen [Tylenol Arthritis Pain] 650 mg tablet extended release 650 mg PO Q12H PRN (Reason: ARTHRITIS) apixaban 5 mg tablet 5 mg PO BID aspirin 81 mg tablet,delayed release (DR/EC) 81 mg PO DAILY atorvastatin 20 mg tablet 20 mg PO QHS Qty: 90 3RF Primary Care Provider: Bal Benz Referrals: Bal Benz MD [Primary Care Provider] - 5-7 Days Activity Restrictions/Additional Instructions: As discussed, please do not take oxycodone with tramadol which you normally take at bedtime. You can take 1 or the other in the evening. Disposition Disposition: Home, Self Care Discharge Date/Time: 01/09/24 14:26
== END 2024-01-09 14:26 | disposition home or self-care (01) ==
PROVIDERS: Emergency Provider Emergency Medicine; PCP Family Medicine; Visit Provider Emergency Medicine
DX: M54.30 Sciatica, unspecified side (principal); G30.9 Alzheimer's disease, unspecified; F02.80 Dementia in other diseases classified elsewhere, unspecified severity, without behavioral disturbance, psychotic disturbance, mood disturbance, and anxiety; I48.0 Paroxysmal atrial fibrillation; N18.32 Chronic kidney disease, stage 3b; I25.10 Atherosclerotic heart disease of native coronary artery without angina pectoris; K21.9 Gastro-esophageal reflux disease without esophagitis; E03.9 Hypothyroidism, unspecified; Z86.73 Personal history of transient ischemic attack (TIA), and cerebral infarction without residual deficits; I12.9 Hypertensive chronic kidney disease with stage 1 through stage 4 chronic kidney disease, or unspecified chronic kidney disease; D64.9 Anemia, unspecified; Z79.01 Long term (current) use of anticoagulants; Z95.1 Presence of aortocoronary bypass graft; G89.29 Other chronic pain
CPT/HCPCS: 72100; 99282

== ENCOUNTER → 2024-01-17 | Outpatient (CLI) | payer MEDICARE, MEDICAID, SELFPAY ==
[2024-01-17 15:52] LABS: Amphetamine Urine VISTA NEGATIVE (<1000 ng/mL); Barbiturate Urine VISTA NEGATIVE (< 200 ng/mL); Benzodiazepine Urine VISTA NEGATIVE (< 200 ng/mL); Cocaine Urine VISTA NEGATIVE (< 300 ng/mL); Ecstacy Urine VISTA NEGATIVE (< 500 ng/mL); Methadone Urine VISTA NEGATIVE (< 300 ng/mL); PCP Urine VISTA NEGATIVE (< 25 ng/mL); THC Urine VISTA NEGATIVE (< 50 ng/mL); Vista UDS pH Range 5
== END | disposition home or self-care (01) ==
PROVIDERS: PCP Family Medicine; Referring Provider Anesthesiology; Visit Provider Anesthesiology
DX: M54.16 Radiculopathy, lumbar region (principal)
CPT/HCPCS: 80307

== ENCOUNTER → 2024-02-19 | Outpatient (CLI) | payer MEDICARE, MEDICAID, SELFPAY ==
--- NOTE | 2024-02-19 16:04 | MRI_ITS ---
STUDY: MRI LUMBAR SPINE WITHOUT CONTRAST REASON FOR EXAM: Female, 78 years old. Radiculopathy, TECHNIQUE: Standardized fat and water weighted pulse sequences were obtained in the sagittal and axial planes. COMPARISON: X-ray January 09, 2024 FINDINGS: T12-L1: Normal endplates. Normal disc height, hydration and morphology. Normal bilateral facet joints. Normal central canal and bilateral lateral recesses. Normal bilateral intervertebral neural foramina. Normal lumbar lordosis. There is grade 1 anterolisthesis at L4-5 and L5-S1. There is no substantial scoliosis. Normal conus medullaris that terminates at the L1 level. There is no lumbar fracture. There is T11 compression fracture with 40% loss of height and marrow edema consistent with recent status. L1-2: Normal endplates. Normal disc height. There is mild spurring of the bilateral facet joints. Normal central canal and bilateral lateral recesses. Normal bilateral intervertebral neural foramina. L2-3: Normal endplates. Normal disc height. There is mild spurring of the bilateral facet joints. Normal central canal and bilateral lateral recesses. Normal bilateral intervertebral neural foramina. L3-4: Normal endplates. Normal disc height. There is mild spurring of the bilateral facet joints. Normal central canal and bilateral lateral recesses. Normal bilateral intervertebral neural foramina. L4-5: Disc bulge. Facet spurring with effusions and ligamentum flavum hypertrophy. Moderate canal stenosis. Neural foramina are patent. L5-S1: Disc bulge. Facet spurring. No canal stenosis. Neural foramina are patent Normal visualized sacral ala. Normal visualized paraspinous soft tissue structures. MRI/Spine Lumbar (Routine) IMPRESSION: Degenerative change with L4-5 canal stenosis. Recent T11 compression fracture. Electronically Signed: Jonatan Rosario MD at 9:45 EDT ,
== END | disposition home or self-care (01) ==
LOC: MRI 15:57
PROVIDERS: PCP Family Medicine; Referring Provider Anesthesiology; Visit Provider Anesthesiology
DX: M54.16 Radiculopathy, lumbar region (principal)
CPT/HCPCS: 72148

== ENCOUNTER 2024-05-08 17:50 | Emergency (ER) | payer MEDICARE, MEDICAID, SELFPAY ==
[2024-05-08 17:50] VITALS: BP 165/91; PULSE 78; RESP 17; TEMP 36.3; O2SAT 96; BMI 39.9
[2024-05-08 19:50] VITALS: BP 213/100; PULSE 69; RESP 18; O2SAT 97
--- NOTE | 2024-05-08 19:59 | EDS_ITS ---
HPI History of Present Illness Chief Complaint: Fall Detail of Chief Complaint: Fall with head injury Informant: patient and family Narrative Narrative: Patient brought to the emergency department by her daughter because of a fall that occurred 2 days ago. Patient stumbled and fell and hit her head while she was with her other daughter. No loss of consciousness. Today she told the daughter that with her that her head hurt and her head started hurting when she fell 2 days ago. She has had no vomiting. She is on Eliquis for history of A- fib. She also has a bruise to her right lower leg but does not have any pain in the leg and has been ambulating without difficulty. Daughter wanted to be certain that she did have an intracranial hemorrhage [facility] Medical History Acute gastric ulcer Alzheimer's dementia Anemia Anxiety Arthritis Atherosclerosis of coronary artery of [place] heart without angina pectoris Cardiology follow-up encounter Chronic anticoagulation Chronic cough Coagulopathy Difficulty swallowing Easy bruising Essential (primary) hypertension Excessive bleeding Fatty liver Gastric reflux GERD (gastroesophageal reflux disease) Hiatal hernia History of atrial fibrillation History of echocardiogram History of edema History of heart attack History of Holter monitoring History of IBS History of renal disease History of stress test HLD (hyperlipidemia) Hypertension Hypothyroidism Iron deficiency Low iron Non-smoker Obesity (BMI 30-39.9) Open wound Orthostatic hypotension Paroxysmal A-fib Paroxysmal atrial fibrillation Pseudoseizures Schatzki's ring Shortness of breath on exertion Stage 3b chronic kidney disease (CKD) Syncope Syncope TIA (transient ischemic attack) Wears dentures Wears glasses Home Medications ?Medication ?Instructions ?Recorded ?Last Taken ?Type budesonide 3 mg 9 mg PO DAILY ASTHMA 06/08/20 07/16/23 History capsule,delayed,extended release ferrous sulfate 325 mg (65 mg 325 mg PO BID SUPPLEMENT 05/11/22 07/16/23 History iron) tablet pantoprazole 40 mg tablet,delayed 40 mg PO BID ACID REFLUX 05/11/22 07/16/23 History release acetaminophen 650 mg 650 mg PO Q12H PRN ARTHRITIS 07/16/23 Unknown History tablet,extended release (Tylenol Arthritis Pain) apixaban 5 mg tablet 5 mg PO BID BLOOD THINNER 07/16/23 07/16/23 History aspirin 81 mg tablet,delayed 81 mg PO DAILY BLOOD THINNER 07/16/23 07/16/23 History release buspirone 5 mg tablet 5 mg PO TID ANXIETY 07/16/23 07/16/23 History levothyroxine 100 mcg tablet 100 mcg PO DAILY THYROID 07/16/23 07/16/23 History sertraline 100 mg tablet 100 mg PO QHS DEPRESSION 07/16/23 07/15/23 History tramadol 50 mg tablet 50 mg PO Q6H PRN PAIN 07/16/23 07/16/23 History oxycodone 5 mg tablet 5 mg PO BID PRN pain 3 days #7 tabs 01/09/24 Unknown Rx prednisone 20 mg tablet 40 mg (2 x 20 mg) PO DAILY #8 tabs 01/09/24 Unknown Rx atorvastatin 20 mg tablet 20 mg PO QHS CHOLESTEROL #90 tabs 03/25/24 Unknown Rx Allergy/AdvReac Type Severity Reaction Status Date / Time procaine (From Novocain) AdvReac Other Verified 05/08/24 17:50 Family History Mother Heart disease Father Heart disease Alcoholism Surgical History H/O cardiac radiofrequency ablation H/O coronary artery bypass surgery (01/29/08) History of colonoscopy History of esophagogastroduodenoscopy (EGD) History of left heart catheterization (01/12/19) Status post ablation of atrial fibrillation Social History household members: none Smoking Status: Never smoker alcohol intake: never substance use type: does not use caffeine: Yes Type: coffee Number of servings: 6 ROS ROS ED Review of Systems ROS Unobtainable: other Constitutional Constitutional ED: Reports lethargy; Denies chills, fever(s), sweats or weight loss Eyes Eyes: Denies blurry vision, change in vision or diplopia ENT ENT ED: Denies rhinorrhea or sore throat Cardiovascular Cardiovascular: Denies chest pain, orthopnea or racing heartbeat Respiratory/Chest Respiratory/Chest: Denies cough, dyspnea, dyspnea on exertion, orthopnea or sputum Gastrointestinal Gastrointestinal: Denies abdominal pain, diarrhea, nausea or vomiting Genitourinary Genitourinary ED: Denies dysuria, hematuria or urinary frequency Musculoskeletal Musculoskeletal: Denies arthralgias, back pain, myalgias or neck pain Integumentary Denies abscess, Abrasions or rash Neurologic Neurologic: Reports headache(s); Denies weakness Psychiatric Psychiatric: Denies anxiety, depression or suicidal thoughts Endocrine Endocrinology: Denies polydipsia, polyphagia or polyuria Hematologic/Lymphatic Hematologic/Lymphatic: Denies easy bleeding, easy bruising or lymphadenopathy Allergic/Immunologic Allergic/Immunologic ED: Denies mouth swelling, tongue swelling or urticaria EXAM Physical Exam Const Vital Signs: 05/08/24 17:50 05/08/24 19:50 Temperature 97.4 F L Temperature Source Temporal Pulse Rate 78 69 Respiratory Rate 17 18 Blood Pressure 165/91 H 213/100 H Blood Pressure Mean 115 137 Pulse Ox 96 97 Oxygen Delivery Method Room Air Room Air Positive well nourished and well developed General Appearance ED: well developed and NAD HEENT Reports TM's clear and moist mucous membranes HEENT Narrative: Small area of ecchymosis and bruising noted to the right frontal scalp. No bony step-offs. normocephalic and atraumatic; Negative for trauma or tenderness Tympanic Membrane ED: Yes TM's clear Eyes PERRL and EOMs intact bilaterally General Eye ED: Negative for pale conjunctiva or scleral icterus Neck no lymphadenopathy, supple and no JVD General: Negative for tenderness Chest Wall inspection of chest normal and palpation of chest normal Chest: Negative for tenderness Resp normal respiratory effort and clear to auscultation bilaterally Effort and Inspection: Negative for respiratory distress or pain with movement Auscultation: Negative for rhonchi, wheezes or diminished lung sounds Cardio regular rate, regular rhythm, S1 normal heart sound, S2 normal heart sound and no murmurs Peripheral Pulses: pulses 2+ throughout GI normal to inspection, nondistended, normoactive bowel sounds, soft to palpation, non-tender, non-distended and no masses Back/Spine no CVA tenderness and no thoracic nor lumbar tenderness Extremity normal to inspection Extremity Narrative: Ecchymosis and bruising noted about the right knee and lateral aspect of the proximal right calf. No bony tenderness on exam about the knee. Good range of motion in flexion extension. Neurovascular intact distally. General Extremety ED: Negative for edema General Extremity: Negative for edema Neuro oriented x3, CN's II-XII intact bilaterally, no sensory deficits noted and gait normal Sensorium / Orientation: awake, alert, oriented to person, oriented to place and oriented to time Motor Exam: strength 5/5 throughout and strength abnormal Psych mental status grossly normal Skin no rashes or lesions noted and no wounds MDM MDM MDM Narrative Medical decision making narrative: Patient presents with a fall that occurred 2 nights ago. Complains of headache. On Eliquis. Patient also with bruising to her right. She is been ambulatory. CT scan of the brain without contrast was unremarkable. She was noted to be hypertensive in the department and her daughter wanted the blood pressure cuff removed because it causes her pain which causes her blood pressure to go up higher and at home really has not had any issues with significant hypertension. Patient clinically looks well. Will discharge to home and advised to follow-up with primary care physician within next 5 to 7 days. Radiography Diagnostic Testing: Clinical Impression(s) from Imaging Studies Brain CT 05/08/24 19:59 IMPRESSION: No acute findings in the head/brain. Chronic changes. Electronically Signed: Amaya Nice MD at 21:07 EDT , Discharge Plan Triage Chief Complaint: Fall ED Provider: Logan Ledesma Dx/Rx/DC Orders Clinical Impression: Fall, Closed head injury, Contusion of leg, right Instructions: ED Contusion, Lower Extremity, ED Head Injury (Adult), ED Hypertension, Established Prescriptions: No Action pantoprazole 40 mg tablet,delayed release (DR/EC) 40 mg PO BID ferrous sulfate 325 mg (65 mg iron) tablet 325 mg PO BID budesonide 3 MG capsule,delayed,extend.release 9 mg PO DAILY buspirone 5 mg tablet 5 mg PO TID levothyroxine 100 mcg tablet 100 mcg PO DAILY tramadol 50 mg tablet 50 mg PO Q6H PRN (Reason: PAIN) Patient Comments: FILLED ON 07/11/23 AT [facility] A 7 DAY SUPPLY. Rx Instructions: TAKE ONE TABLET BY MOUTH EVERY 6 HOURS NEEDED FOR PAIN FOR UP TO 7 DAYS. sertraline 100 mg tablet 100 mg PO QHS acetaminophen [Tylenol Arthritis Pain] 650 mg tablet extended release 650 mg PO Q12H PRN (Reason: ARTHRITIS) apixaban 5 mg tablet 5 mg PO BID aspirin 81 mg tablet,delayed release (DR/EC) 81 mg PO DAILY oxycodone 5 mg tablet 5 mg PO BID PRN (Reason: pain) 3 Days Qty: 7 0RF prednisone 20 mg tablet 40 mg PO DAILY Qty: 8 0RF atorvastatin 20 mg tablet 20 mg PO QHS Qty: 90 3RF Primary Care Provider: Bal Benz Referrals: Bal Benz MD [Primary Care Provider] - Print Language: Cymraes Disposition Disposition: Home, Self Care
--- NOTE | 2024-05-08 19:59 | CT_ITS ---
EXAM: CT HEAD WITHOUT INTRAVENOUS CONTRAST CLINICAL INDICATION: Fall, headache, on Eliquis TECHNIQUE: Multiple axial images were obtained of the head without intravenous contrast. This CT exam was performed using one or more of the following dose reduction techniques: automated exposure control, adjustment of the mA and/or kV according to patient size, and/or use of iterative reconstruction technique. RADIATION DOSE: CTDIvol = 44.99 mGy, DLP = 762.36 mGy-cm. COMPARISON: November 01, 2023. FINDINGS: BRAIN AND EXTRA-AXIAL SPACES: Mild-moderate cerebral volume loss. Moderate cavernous carotid calcifications. Mild low-attenuation deep periventricular and subcortical white matter changes. No intra- or extra-axial hemorrhage. No evidence of acute infarct. No intracranial mass or mass effect. There is preservation of the boogie/white matter interface. Posterior fossa structures are unremarkable. No hydrocephalus. Basal cisterns are patent. BONES/JOINTS: There is cartilaginous nasal septal defect of 1.5 cm AP. Well-aerated almost completely included sinuses. No discrete lytic or blastic abnormalities. SINUSES: Unremarkable as visualized. Clear. MASTOID AIR CELLS: Unremarkable. Clear. ORBITS: Visualized globes, extraocular muscles, optic nerves and retrobulbar fat appear unremarkable. CT/Brain/Head without Contrast IMPRESSION: No acute findings in the head/brain. Chronic changes. Electronically Signed: Amaya Nice MD at 21:07 EDT ,
[2024-05-08 21:00] VITALS: PULSE 87; RESP 16; O2SAT 94
[2024-05-08 21:45] VITALS: BP 222/103; PULSE 70; RESP 16; TEMP 36.1; O2SAT 96
--- NOTE | 2024-05-08 21:49 | ED.RN ---
PT DISCHARGED HOME WITH BP OF 222/103. DR. PATEL AWARE. PT UNABLE TO TOLERATE BP CUFF WITHOUT MOVING ARM. PT EDUCATED BY DR. PATEL AND THIS RN TO CHECK BP AT HOME WITH AT HOME BP CUFF. EDUCATED TO FOLLOW UP WITH PCP OR RETURN TO ER IF CONCERNED THAT BP IS HIGHER THAN BASELINE AND PATIENT IS EXPERIENCING SYMPTOMS.
== END 2024-05-08 21:51 | disposition home or self-care (01) ==
PROVIDERS: Emergency Provider Emergency Medicine; PCP Family Medicine; Visit Provider Emergency Medicine
DX: S09.90XA Unspecified injury of head, initial encounter (principal); I48.0 Paroxysmal atrial fibrillation; N18.32 Chronic kidney disease, stage 3b; Z79.01 Long term (current) use of anticoagulants; S80.11XA Contusion of right lower leg, initial encounter; I12.9 Hypertensive chronic kidney disease with stage 1 through stage 4 chronic kidney disease, or unspecified chronic kidney disease; I25.10 Atherosclerotic heart disease of native coronary artery without angina pectoris; E78.5 Hyperlipidemia, unspecified; W01.10XA Fall on same level from slipping, tripping and stumbling with subsequent striking against unspecified object, initial encounter; I25.2 Old myocardial infarction; Z86.73 Personal history of transient ischemic attack (TIA), and cerebral infarction without residual deficits; K21.9 Gastro-esophageal reflux disease without esophagitis; Z79.899 Other long term (current) drug therapy; Z79.82 Long term (current) use of aspirin; F41.9 Anxiety disorder, unspecified; E03.9 Hypothyroidism, unspecified
CPT/HCPCS: 70450; 99282

== ENCOUNTER 2024-12-11 07:03 | Emergency (ER) | payer MEDICARE, MEDICAID, SELFPAY ==
[2024-12-11 07:03] VITALS: BP 129/100; PULSE 71; RESP 14; TEMP 36.3; O2SAT 98
--- NOTE | 2024-12-11 07:16 | CT_ITS ---
PROCEDURE: BRAIN/HEAD WITHOUT CONTRAST 12/11/2024 REASON FOR EXAM: INJURY TECHNIQUE: Head CT without intravenous contrast. Coronal and Sagittal reconstruction series were provided. One or more dose reduction techniques were used (e.g., Automated exposure control, adjustment of the mA and/or kV according to patient size, use of iterative reconstruction technique. RADIATION DOSE SUMMARY: CTDlvol: 44.99 mGy DLP: 779.24 mGycm COMPARISON: None available FINDINGS: No intracranial hemorrhage, mass effect or calvarial fracture. Mild prominence of the ventricles out of proportion to the sulci which may represent central volume loss or NPH. Volume loss, atrophy about the sylvian fissures appears symmetric. Periventricular white matter low attenuation may represent chronic small-vessel ischemic change. Soft tissue defect to the anterior lower nasal septal soft tissues partially imaged. The visualized paranasal sinuses, mastoids and orbits appear within limits. Bilateral parasellar carotid calcification. Bilateral TMJ degenerative changes. CT/Brain/Head without Contrast IMPRESSION: No intracranial hemorrhage, mass effect or calvarial fracture. Chronic and involutional changes as above. Reading Location: [id number]
--- NOTE | 2024-12-11 07:17 | EX.ED.GENINJ ---
HPI History of Present Illness Chief Complaint: Head Injury Informant: patient and family Narrative Narrative: 79-year-old female presenting to the emergency room following a fall. Patient states that around midnight she went to the bathroom. She notes that she is chronically unsteady on her feet and unfortunately due to the size of her house she is unable to use a walker or a cane. She states that due to her blood pressure medication she is very frequently dizzy. She states her and her doctor have tried to alter the medicine but whenever she takes it and goes to move she is frequently dizzy. She notes there are some weeks where she may fall up to 3 times per week. She notes that she was dizzy as she was trying to get to the bathroom and fell into the closet door. She notes abrasion to the right forehead. Unsure if she lost consciousness. She also notes injury to the left wrist. She is left-handed. She has limited range of motion secondary to pain as well as swelling. She denies any leg injury. She denies any neck or back pain. She denies any change in her vision or facial symptoms. She is on Eliquis due to paroxysmal A-fib. [facility] Medical History Paroxysmal A-fib Syncope Orthostatic hypotension Wears glasses Wears dentures Open wound Arthritis History of renal disease Fatty liver Low iron Easy bruising Excessive bleeding TIA (transient ischemic attack) Difficulty swallowing History of IBS Gastric reflux Shortness of breath on exertion Chronic cough Non-smoker Hypertension History of edema History of heart attack History of atrial fibrillation History of Holter monitoring History of stress test History of echocardiogram Cardiology follow-up encounter Acute gastric ulcer Coagulopathy Hiatal hernia Schatzki's ring Stage 3b chronic kidney disease (CKD) Iron deficiency Anemia Chronic anticoagulation Syncope Essential (primary) hypertension Paroxysmal atrial fibrillation Alzheimer's dementia GERD (gastroesophageal reflux disease) Anxiety Hypothyroidism Pseudoseizures Atherosclerosis of coronary artery of [place] heart without angina pectoris HLD (hyperlipidemia) Obesity (BMI 30-39.9) Home Medications ?Medication ?Instructions ?Recorded ?Last Taken ?Type budesonide 3 mg 9 mg PO DAILY ASTHMA 06/08/20 07/16/23 History capsule,delayed,extended release ferrous sulfate 325 mg (65 mg 325 mg PO BID SUPPLEMENT 05/11/22 07/16/23 History iron) tablet pantoprazole 40 mg tablet,delayed 40 mg PO BID ACID REFLUX 05/11/22 07/16/23 History release acetaminophen 650 mg 650 mg PO Q12H PRN ARTHRITIS 07/16/23 Unknown History tablet,extended release (Tylenol Arthritis Pain) apixaban 5 mg tablet 5 mg PO BID BLOOD THINNER 07/16/23 07/16/23 History aspirin 81 mg tablet,delayed 81 mg PO DAILY BLOOD THINNER 07/16/23 07/16/23 History release buspirone 5 mg tablet 5 mg PO TID ANXIETY 07/16/23 07/16/23 History levothyroxine 100 mcg tablet 100 mcg PO DAILY THYROID 07/16/23 07/16/23 History sertraline 100 mg tablet 100 mg PO QHS DEPRESSION 07/16/23 07/15/23 History tramadol 50 mg tablet 50 mg PO Q6H PRN PAIN 07/16/23 07/16/23 History atorvastatin 20 mg tablet 20 mg PO QHS CHOLESTEROL #90 tabs 03/25/24 Unknown Rx amlodipine 5 mg tablet 5 mg PO QDAY #30 tabs 07/23/24 Unknown Rx Allergy/AdvReac Type Severity Reaction Status Date / Time procaine (From Novocain) AdvReac Other Verified 12/11/24 07:04 Family History Mother Heart disease Father Heart disease Alcoholism Surgical History History of colonoscopy History of esophagogastroduodenoscopy (EGD) H/O cardiac radiofrequency ablation Status post ablation of atrial fibrillation History of left heart catheterization (01/12/19) H/O coronary artery bypass surgery (01/29/08) Social History household members: none Smoking Status: Never smoker alcohol intake: never substance use type: does not use caffeine: Yes Type: coffee Number of servings: 6 ROS ROS ED Constitutional Constitutional ED: Denies chills, fever(s) or weight loss Eyes Eyes: Denies blurry vision, change in vision or diplopia ENT ENT ED: Denies ear pain, rhinorrhea or sore throat Cardiovascular Cardiovascular: Denies chest pain, orthopnea, palpitations or racing heartbeat Respiratory/Chest Respiratory/Chest: Denies cough, dyspnea or orthopnea Gastrointestinal Gastrointestinal: Denies abdominal pain, diarrhea, nausea or vomiting Genitourinary Genitourinary ED: Denies dysuria, hematuria or urinary frequency Musculoskeletal Musculoskeletal: Reports other Details: See history of present illness ; Denies arthralgias, back pain, myalgias or neck pain Integumentary Reports Abrasions; Denies abscess or rash Neurologic Neurologic: Denies headache(s), paresthesias or weakness Psychiatric Psychiatric: Denies anxiety, depression, suicidal ideation or suicidal thoughts Endocrine Endocrinology: Denies polydipsia, polyphagia or polyuria Allergic/Immunologic Allergic/Immunologic ED: Denies mouth swelling, tongue swelling or urticaria EXAM Physical Exam Const Vital Signs: 12/11/24 07:03 12/11/24 07:37 Temperature 97.3 F L Temperature Source Temporal Pulse Rate 71 Respiratory Rate 14 Respiratory Effort Normal Respiratory Depth Normal Respiratory Pattern Normal Blood Pressure 129/100 H Blood Pressure Mean 109 Pulse Ox 98 Oxygen Delivery Method Room Air Room Air Positive well nourished, well developed and obese General Appearance ED: well developed and NAD Nutritional Appearance: obese HEENT Reports normocephalic and moist mucous membranes HEENT Narrative: There is an abrasion superficial to the right forehead. I do not appreciate any orbital trauma. No bony depression or step-offs. Able to open and close her jaw without difficulty. Eyes PERRL and EOMs intact bilaterally Neck no lymphadenopathy, supple and no JVD Chest Wall inspection of chest normal and palpation of chest normal Resp normal respiratory effort and clear to auscultation bilaterally Cardio regular rate, regular rhythm and no murmurs GI normal to inspection, nondistended, normoactive bowel sounds and non-tender Palpation: soft Back/Spine no CVA tenderness and normal ROM Extremity Extremity Narrative: Left wrist demonstrates swelling and limited range of motion secondary to pain. Distally the fingers appear normal. Normal function of the fingers. General Extremety ED: Yes edema General Extremity: edema bilateral lower extremity Details: mild Neuro oriented x3 and CN's II-XII intact bilaterally Sensorium / Orientation: alert Motor Exam: strength 5/5 throughout Psych mental status grossly normal Mood & Affect: Negative for depressed or tearful Skin no rashes or lesions noted and no wounds MDM MDM MDM Narrative Medical decision making narrative: Differential diagnosis includes but not limited to intracranial hemorrhage skull fracture intracranial hematoma wrist fracture wrist dislocation neurovascular injury concussion Patient is a frequent fall her. She offers a plausible explanation as to why she fell. I do not feel she needs an extensive workup on this as it has been an ongoing issue. A CT of the brain was obtained which does not demonstrate fracture or intracranial hemorrhage/hematoma. My independent interpretation of the plain films of the left wrist is an intra-articular nondisplaced distal radius fracture. Patient was placed in a well-padded Ortho-Glass AP splint made by this physician. Neurovascularly intact pre and post application. Excellent capillary refills of all 5 digits after the application. Patient will need to follow-up with orthopedics. She states that she has not seen a local orthopedist. Dr. Purcell is on for no doc orthopedics. I think the patient should try to use Tylenol for pain. I am hesitant to write for narcotics given that she is already a fall risk. History & Record Review Discussion w/independent historian: Patient and Family Radiography Diagnostic Testing: Clinical Impression(s) from Imaging Studies Brain CT 12/11/24 07:16 IMPRESSION: No intracranial hemorrhage, mass effect or calvarial fracture. Chronic and involutional changes as above. Reading Location: [facility] Wrist X-Ray 12/11/24 07:30 IMPRESSION: Acute intra-articular distal radius fracture without significant appearing displacement or angulation. No dislocation. Reading Location: [facility] Discharge Plan Triage Chief Complaint: Head Injury ED Provider: Jorge Russo Dx/Rx/DC Orders Clinical Impression: Head injury, Abrasion of forehead, Fracture of left wrist Instructions: ED Abrasion, ED Head Injury (Adult), ED Fracture, Wrist, General Prescriptions: No Action pantoprazole 40 mg tablet,delayed release (DR/EC) 40 mg PO BID ferrous sulfate 325 mg (65 mg iron) tablet 325 mg PO BID amlodipine 5 mg tablet 5 mg PO QDAY Qty: 30 11RF budesonide 3 MG capsule,delayed,extend.release 9 mg PO DAILY buspirone 5 mg tablet 5 mg PO TID levothyroxine 100 mcg tablet 100 mcg PO DAILY tramadol 50 mg tablet 50 mg PO Q6H PRN (Reason: PAIN) Patient Comments: FILLED ON 07/11/23 AT [facility] A 7 DAY SUPPLY. Rx Instructions: TAKE ONE TABLET BY MOUTH EVERY 6 HOURS NEEDED FOR PAIN FOR UP TO 7 DAYS. sertraline 100 mg tablet 100 mg PO QHS acetaminophen [Tylenol Arthritis Pain] 650 mg tablet extended release 650 mg PO Q12H PRN (Reason: ARTHRITIS) apixaban 5 mg tablet 5 mg PO BID aspirin 81 mg tablet,delayed release (DR/EC) 81 mg PO DAILY atorvastatin 20 mg tablet 20 mg PO QHS Qty: 90 3RF Primary Care Provider: Bal Benz Referrals: Eliezer Purcell DO [Med Staff - Active Staff] - As soon as possible (for orthopedics) Bal Benz MD [Primary Care Provider] - Print Language: Polish Disposition Disposition: Home, Self Care
--- NOTE | 2024-12-11 07:30 | RAD_ITS ---
EXAM: Wrist minimum three views CLINICAL HISTORY: Injury COMPARISON: None available TECHNIQUE: Three views left wrist FINDINGS: Acute intra-articular distal radius fracture without significant appearing displacement or angulation. No dislocation. Vascular calcifications. Soft tissue swelling about the wrist. RAD/Wrist min 3 Views IMPRESSION: Acute intra-articular distal radius fracture without significant appearing disp lacement or angulation. No dislocation. Reading Location: [id number]
[2024-12-11 07:34] VITALS: BMI 38.2
== END 2024-12-11 08:33 | disposition home or self-care (01) ==
PROVIDERS: Emergency Provider Emergency Medicine; PCP Family Medicine; Visit Provider Emergency Medicine
DX: S00.91XA Abrasion of unspecified part of head, initial encounter (principal); I48.0 Paroxysmal atrial fibrillation; N18.32 Chronic kidney disease, stage 3b; I12.9 Hypertensive chronic kidney disease with stage 1 through stage 4 chronic kidney disease, or unspecified chronic kidney disease; E78.5 Hyperlipidemia, unspecified; Z79.01 Long term (current) use of anticoagulants; I25.10 Atherosclerotic heart disease of native coronary artery without angina pectoris; S52.572A Other intraarticular fracture of lower end of left radius, initial encounter for closed fracture; R29.6 Repeated falls; E66.9 Obesity, unspecified; Z95.1 Presence of aortocoronary bypass graft; Z86.73 Personal history of transient ischemic attack (TIA), and cerebral infarction without residual deficits; I25.2 Old myocardial infarction; W01.10XA Fall on same level from slipping, tripping and stumbling with subsequent striking against unspecified object, initial encounter; Y92.012 Bathroom of single-family (private) house as the place of occurrence of the external cause
CPT/HCPCS: 29125; 70450; 73110; 99282

== ENCOUNTER 2025-02-07 15:07 | Emergency (ER) | payer MEDICARE, MEDICAID, SELFPAY ==
[2025-02-07 15:10] VITALS: BP 142/99; PULSE 58; RESP 18; TEMP 36.6; O2SAT 94
--- NOTE | 2025-02-07 15:26 | RAD_ITS ---
PROCEDURE: FOREARM 2 VIEWS 02/07/2025 REASON FOR EXAM: TRAUMA TECHNIQUE: 2 view(s) of the left forearm COMPARISON: 01/25/2025. FINDINGS: Interval callus formation of a distal radius fracture. No evidence of new fracture. The soft tissues are unremarkable. RAD/Forearm 2 Views IMPRESSION: Suggestive of interval healing of the distal radius fracture. Reading Location: [place] [id number]
--- NOTE | 2025-02-07 15:26 | CT_ITS ---
PROCEDURE: BRAIN/HEAD WITHOUT CONTRAST 02/07/2025 REASON FOR EXAM: TRAUMA, HEAD INJURY ON ANTICAGULATION TECHNIQUE: Head CT without intravenous contrast. Coronal and Sagittal reconstruction series were provided. One or more dose reduction techniques were used (e.g., Automated exposure control, adjustment of the mA and/or kV according to patient size, use of iterative reconstruction technique. RADIATION DOSE SUMMARY: CTDlvol: 44.99 mGy DLP: 796.11 mGycm COMPARISON: 12/11/2024. FINDINGS: Moderate global parenchymal atrophy. Periventricular white matter hypodensity likely representing chronic microvascular ischemia. No extra-axial blood or fluid collections. No evidence of acute hemorrhage or infarction. The paranasal sinuses mastoid air cells are clear. The calvarial vault and skull base are intact. CT/Brain/Head without Contrast IMPRESSION: No acute intracranial abnormality. Reading Location: [place] [id number]
--- NOTE | 2025-02-07 15:26 | RAD_ITS ---
PROCEDURE: KNEE 4 OR MORE VIEWS 02/07/2025 REASON FOR EXAM: TRAUMA TECHNIQUE: 4 views of the right knee COMPARISON: None RAD/Knee 4 or More Views IMPRESSION: No acute fractures or dislocations. Mild degenerative changes of the right kne e. Mild diffuse soft tissue swelling. Mild joint effusion. Reading Location: [id number]
--- NOTE | 2025-02-07 15:26 | RAD_ITS ---
PROCEDURE: WRIST MIN 3 VIEWS 02/07/2025 REASON FOR EXAM: TRAUMA TECHNIQUE: 3 view(s) of the left wrist COMPARISON: 01/25/2025. FINDINGS: Interval callus formation of a distal radius fracture. No evidence of new fracture. The soft tissues unremarkable. RAD/Wrist min 3 Views IMPRESSION: Suggestive of mild interval healing of the distal radius fracture. Reading Location: [place] [id number]
--- NOTE | 2025-02-07 15:35 | ED.VIS.FALL ---
HPI HPI - Fall History of Present Illness Chief Complaint: Fall Narrative Narrative: 79-year-old female presents with her [id number] because of fall yesterday and possible loss of consciousness. She has history of frequent falls, and problems stating that she blacks out frequently. She is being worked up for this, but she and her family state that they do not have a reason why this happens to her. She also has history of previous wrist/forearm fracture which she is being seen by orthopedics for, and had to have casting, and reset. She now has more of an Pasquale bandage on her forearm. She also has history of chronic knee pain. She relates history that she was walking into the house and fell. She complains of right knee pain, and left wrist and forearm pain. She denies any neck pain although she has chronic neck pain. She states she does take a blood thinner as well. This is secondary to atrial fibrillation. [facility] Medical History Paroxysmal A-fib Syncope Orthostatic hypotension Wears glasses Wears dentures Open wound Arthritis History of renal disease Fatty liver Low iron Easy bruising Excessive bleeding TIA (transient ischemic attack) Difficulty swallowing History of IBS Gastric reflux Shortness of breath on exertion Chronic cough Non-smoker Hypertension History of edema History of heart attack History of atrial fibrillation History of Holter monitoring History of stress test History of echocardiogram Cardiology follow-up encounter Acute gastric ulcer Coagulopathy Hiatal hernia Schatzki's ring Stage 3b chronic kidney disease (CKD) Iron deficiency Anemia Chronic anticoagulation Syncope Essential (primary) hypertension Paroxysmal atrial fibrillation Alzheimer's dementia GERD (gastroesophageal reflux disease) Anxiety Hypothyroidism Pseudoseizures Atherosclerosis of coronary artery of [place] heart without angina pectoris HLD (hyperlipidemia) Obesity (BMI 30-39.9) Home Medications ?Medication ?Instructions ?Recorded ?Last Taken ?Type budesonide 3 mg 9 mg PO DAILY ASTHMA 06/08/20 07/16/23 History capsule,delayed,extended release ferrous sulfate 325 mg (65 mg 325 mg PO BID SUPPLEMENT 05/11/22 07/16/23 History iron) tablet pantoprazole 40 mg tablet,delayed 40 mg PO BID ACID REFLUX 05/11/22 07/16/23 History release acetaminophen 650 mg 650 mg PO Q12H PRN ARTHRITIS 07/16/23 Unknown History tablet,extended release (Tylenol Arthritis Pain) apixaban 5 mg tablet 5 mg PO BID BLOOD THINNER 07/16/23 07/16/23 History aspirin 81 mg tablet,delayed 81 mg PO DAILY BLOOD THINNER 07/16/23 07/16/23 History release buspirone 5 mg tablet 5 mg PO TID ANXIETY 07/16/23 07/16/23 History levothyroxine 100 mcg tablet 100 mcg PO DAILY THYROID 07/16/23 07/16/23 History sertraline 100 mg tablet 100 mg PO QHS DEPRESSION 07/16/23 07/15/23 History tramadol 50 mg tablet 50 mg PO Q6H PRN PAIN 07/16/23 07/16/23 History atorvastatin 20 mg tablet 20 mg PO QHS CHOLESTEROL #90 tabs 03/25/24 Unknown Rx Allergy/AdvReac Type Severity Reaction Status Date / Time procaine (From Novocain) AdvReac Other Verified 02/07/25 15:09 Family History Mother Heart disease Father Heart disease Alcoholism Surgical History History of colonoscopy History of esophagogastroduodenoscopy (EGD) H/O cardiac radiofrequency ablation Status post ablation of atrial fibrillation History of left heart catheterization (01/12/19) H/O coronary artery bypass surgery (01/29/08) Social History household members: none Smoking Status: Never smoker alcohol intake: never substance use type: does not use caffeine: Yes Type: coffee Number of servings: 6 ROS ROS ED ROS Narrative Review of systems positive for right knee pain, left wrist and forearm pain with history of fracture, no neck pain. No headache currently. EXAM Physical Exam Narrative Exam Narrative: GCS 15. ABCs are intact. Head is normocephalic and atraumatic. PERRL, EOMI. Neck soft and supple without meningismus, no vertebral point tenderness or bony step-off. Full range of motion without pain. Cardiovascular examination reveals bradycardia. Lungs clear to auscultation bilaterally. Abdomen soft and nontender without guarding or rebound. Neurological examination shows her to be awake, alert, oriented, and interactive, answering questions appropriately. Musculoskeletal examination does show Pasquale bandage more on her forearm. Palpable radial pulse. No crepitance. Full range of motion of fingers. Right knee diffusely tender below the patella but no crepitance. Able to flex and extend at knee and hip. Able to raise leg off bed independently. EHL intact bilaterally. Const Vital Signs: 02/07/25 15:10 02/07/25 15:12 02/07/25 15:12 Temperature 98 F Temperature Source Oral Pulse Rate 58 L Respiratory Rate 18 Respiratory Effort Normal Normal Respiratory Depth Normal Respiratory Pattern Normal Normal Blood Pressure 142/99 H Blood Pressure Mean 113 Pulse Ox 94 Oxygen Delivery Method Room Air Room Air MDM MDM MDM Narrative Medical decision making narrative: The differential diagnosis includes but not limited to intracranial hemorrhage versus closed head injury. She may have refractured her left forearm/wrist. Concern would also be for tibial plateau fracture versus knee contusion. CT of the brain will be obtained secondary to her being on apixaban, but I have low suspicion for intracranial hemorrhage given her neurological examination. X-rays will be obtained to reassess her left wrist/forearm fracture provide x-rays were also obtained of the right knee. In her problem list from before is a nondisplaced fracture of the left radial styloid process. She follows up with Dr. Purcell with orthopedics. I reviewed the radiology report of the CT of the brain and there is no acute hemorrhage or fracture. X-rays of the left wrist and left forearm interpreted by myself independently shows a healing distal radius fracture. No evidence of new or acute fracture. I reviewed the radiology report which confirms my independent interpretation. Additionally on my individual interpretation of the right knee x-ray, there is osteoarthritis but no evidence of an acute fracture or tibial plateau fracture. Once again, I reviewed the radiology report which confirms my independent interpretation. At this point in time, I feel [id number] analgesics are sufficient. She will follow-up with her primary care provider and her orthopedic surgeon. Return instructions to the emergency department were reviewed. Disposition is discharged home in stable condition. History & Record Review Discussion w/independent historian: Patient and Family Radiography Diagnostic Testing: Clinical Impression(s) from Imaging Studies Brain CT 02/07/25 15:26 IMPRESSION: No acute intracranial abnormality. Reading Location: [id number] Forearm X-Ray 02/07/25 15:26 IMPRESSION: Suggestive of interval healing of the distal radius fracture. Reading Location: [id number] Knee X-Ray 02/07/25 15:26 IMPRESSION: No acute fractures or dislocations. Mild degenerative changes of the right knee. Mild diffuse soft tissue swelling. Mild joint effusion. Reading Location: [facility] Wrist X-Ray 02/07/25 15:26 IMPRESSION: Suggestive of mild interval healing of the distal radius fracture. Reading Location: [id number] Discharge Plan Triage Chief Complaint: Fall Other Complaint: Syncope ED Provider: Eliecer Head Dx/Rx/DC Orders Clinical Impression: Fall, Closed fracture of distal end of radius with routine healing, Contusion of right knee, Osteoarthritis Instructions: How Bones Heal, ED Contusion, Lower Extremity, ED Fall with Uncertain Cause, ED Osteoarthritis Prescriptions: No Action pantoprazole 40 mg tablet,delayed release (DR/EC) 40 mg PO BID ferrous sulfate 325 mg (65 mg iron) tablet 325 mg PO BID budesonide 3 MG capsule,delayed,extend.release 9 mg PO DAILY buspirone 5 mg tablet 5 mg PO TID levothyroxine 100 mcg tablet 100 mcg PO DAILY tramadol 50 mg tablet 50 mg PO Q6H PRN (Reason: PAIN) Patient Comments: FILLED ON 07/11/23 AT [facility] A 7 DAY SUPPLY. Rx Instructions: TAKE ONE TABLET BY MOUTH EVERY 6 HOURS NEEDED FOR PAIN FOR UP TO 7 DAYS. sertraline 100 mg tablet 100 mg PO QHS acetaminophen [Tylenol Arthritis Pain] 650 mg tablet extended release 650 mg PO Q12H PRN (Reason: ARTHRITIS) apixaban 5 mg tablet 5 mg PO BID aspirin 81 mg tablet,delayed release (DR/EC) 81 mg PO DAILY atorvastatin 20 mg tablet 20 mg PO QHS Qty: 90 3RF Primary Care Provider: Bal Benz Referrals: Eliezer Purcell DO [Med Staff - Active Staff] - As soon as possible Bal Benz MD [Primary Care Provider] - 1 Week if not improving Activity Restrictions/Additional Instructions: Follow-up with orthopedics regarding your known wrist fracture that is healing. Continue your [id number] medications as needed for pain. Return with new or worsening symptoms. Print Language: Dutch Disposition Disposition: Home, Self Care
[2025-02-07 17:04] VITALS: PULSE 62; RESP 18; TEMP 36.5; O2SAT 98; BMI 36.6
== END 2025-02-07 17:06 | disposition home or self-care (01) ==
PROVIDERS: Emergency Provider Emergency Medicine; PCP Family Medicine; Visit Provider Emergency Medicine
DX: S80.01XA Contusion of right knee, initial encounter (principal); I48.0 Paroxysmal atrial fibrillation; N18.32 Chronic kidney disease, stage 3b; S52.515D Nondisplaced fracture of left radial styloid process, subsequent encounter for closed fracture with routine healing; M17.11 Unilateral primary osteoarthritis, right knee; I12.9 Hypertensive chronic kidney disease with stage 1 through stage 4 chronic kidney disease, or unspecified chronic kidney disease; W19.XXXA Unspecified fall, initial encounter; E78.5 Hyperlipidemia, unspecified; I25.10 Atherosclerotic heart disease of native coronary artery without angina pectoris; Z95.1 Presence of aortocoronary bypass graft; E03.9 Hypothyroidism, unspecified; Z86.73 Personal history of transient ischemic attack (TIA), and cerebral infarction without residual deficits; R29.6 Repeated falls
CPT/HCPCS: 70450; 73090; 73110; 73564; 99283

== ENCOUNTER 2025-09-06 09:15 | Observation (INO) | payer MEDICARE, MEDICAID, SELFPAY ==
[2025-09-06] VITALS (8 sets, daily range): BP systolic 149–167; BP diastolic 65–100; PULSE 74–87; RESP 15–18; TEMP 36.6–38; O2SAT 94–99; BMI 35.5; BMI 35.4
--- NOTE | 2025-09-06 09:56 | ED.VIS.FALL ---
HPI HPI - Fall History of Present Illness Chief Complaint: Fall Informant: patient and family Limited: dementia Narrative Narrative: Patient is a 80-year-old female with a history of Alzheimer's and dementia, presenting to the ED after a fall with head trauma. She is accompanied by her daughter, who is providing history on her behalf. - Patient reportedly fell and hit her head, with possible LOC - pt remembers hitting her head; does not recall any prodromal sx. - She is on a blood thinner, Eliquis, due to a history of AFib and open heart surgery in 2012. - Her daughter was alerted by a medication reminder that patient had not taken her medicine, prompting concern, as the patient lives alone and this was unwitnessed. - Unable to reach patient by phone, her daughter contacted a neighbor, who found patient sitting in a chair, appearing unsteady. - Patient's daughter notes increased confusion now compared to her baseline, with a neurology appointment scheduled for tomorrow to address worsening memory. - Denies other pain besides head. PFSH PFSH Medical History Paroxysmal A-fib Syncope Orthostatic hypotension Wears glasses Wears dentures Open wound Arthritis History of renal disease Fatty liver Low iron Easy bruising Excessive bleeding TIA (transient ischemic attack) Difficulty swallowing History of IBS Gastric reflux Shortness of breath on exertion Chronic cough Non-smoker Hypertension History of edema History of heart attack History of atrial fibrillation History of Holter monitoring History of stress test History of echocardiogram Cardiology follow-up encounter Acute gastric ulcer Coagulopathy Hiatal hernia Schatzki's ring Stage 3b chronic kidney disease (CKD) Iron deficiency Anemia Chronic anticoagulation Syncope Essential (primary) hypertension Paroxysmal atrial fibrillation Alzheimer's dementia GERD (gastroesophageal reflux disease) Anxiety Hypothyroidism Pseudoseizures Atherosclerosis of coronary artery of [place] heart without angina pectoris HLD (hyperlipidemia) Obesity (BMI 30-39.9) Home Medications ?Medication ?Instructions ?Recorded ?Last Taken ?Type budesonide 3 mg 9 mg PO DAILY ASTHMA 06/08/20 07/16/23 History capsule,delayed,extended release ferrous sulfate 325 mg (65 mg 325 mg PO BID SUPPLEMENT 05/11/22 07/16/23 History iron) tablet pantoprazole 40 mg tablet,delayed 40 mg PO BID ACID REFLUX 05/11/22 07/16/23 History release acetaminophen 650 mg 650 mg PO Q12H PRN ARTHRITIS 07/16/23 Unknown History tablet,extended release (Tylenol Arthritis Pain) apixaban 5 mg tablet 5 mg PO BID BLOOD THINNER 07/16/23 07/16/23 History aspirin 81 mg tablet,delayed 81 mg PO DAILY BLOOD THINNER 07/16/23 07/16/23 History release buspirone 5 mg tablet 5 mg PO TID ANXIETY 07/16/23 07/16/23 History levothyroxine 100 mcg tablet 100 mcg PO DAILY THYROID 07/16/23 07/16/23 History sertraline 100 mg tablet 100 mg PO QHS DEPRESSION 07/16/23 07/15/23 History tramadol 50 mg tablet 50 mg PO Q6H PRN PAIN 07/16/23 07/16/23 History atorvastatin 20 mg tablet 20 mg PO QHS CHOLESTEROL #30 tabs 03/11/25 Unknown Rx Allergy/AdvReac Type Severity Reaction Status Date / Time procaine (From Novocain) AdvReac Other Verified 09/06/25 09:21 Family History Mother Heart disease Father Heart disease Alcoholism Surgical History History of colonoscopy History of esophagogastroduodenoscopy (EGD) H/O cardiac radiofrequency ablation Status post ablation of atrial fibrillation History of left heart catheterization (01/12/19) H/O coronary artery bypass surgery (01/29/08) Social History household members: none Smoking Status: Never smoker alcohol intake: never substance use type: does not use caffeine: Yes Type: coffee Number of servings: 6 EXAM Physical Exam Const Vital Signs: 09/06/25 09:16 09/06/25 09:23 09/06/25 11:15 Temperature 98.2 F Temperature Source Oral Pulse Rate 86 84 Respiratory Rate 18 18 Respiratory Effort Normal Blood Pressure 167/91 H 154/82 H Blood Pressure Mean 116 106 Pulse Ox 98 98 Oxygen Delivery Method Room Air Room Air 09/06/25 13:00 09/06/25 15:12 09/06/25 17:06 Temperature Temperature Source Pulse Rate 82 81 74 Respiratory Rate 18 15 18 Respiratory Effort Blood Pressure 150/80 H 149/65 H 151/77 H Blood Pressure Mean 103 93 101 Pulse Ox 99 97 97 Oxygen Delivery Method Room Air Room Air Positive well nourished and well developed General Appearance ED: well developed and NAD HEENT Reports moist mucous membranes HEENT Narrative: Right periorbital ecchymosis and a superficial 0.5 cm laceration partial-thickness clean appearing to the right upper forehead. No crepitance, hematoma, depression. No active bleeding. No hemotympanum, CSF otorhinorrhea, Parham sign. Midface is stable, nasal bone without crepitance. normocephalic Eyes PERRL and EOMs intact bilaterally Eyes Narrative: No sign of globe trauma Neck full ROM and supple Resp normal respiratory effort and clear to auscultation bilaterally Cardio no murmurs Rhythm: abnormal rhythm irregularly irregular GI non-tender and non-distended Auscultation: normoactive bowel sounds Palpation: soft Back/Spine no CVA tenderness General Back: other FROM Extremity normal to inspection Extremity Narrative: Painless full range of motion. Bruising to the left forearm appears old full range of motion nontender General Extremety ED: Negative for edema, pulses abnormal or tenderness General Extremity: Negative for edema or pulses abnormal Neuro CN's II-XII intact bilaterally and no sensory deficits noted Sensorium / Orientation: awake, alert and orientation impaired Motor Exam: general weakness Psych mental status grossly normal Skin no rashes or lesions noted and no wounds MDM MDM MDM Narrative Medical decision making narrative: Assessment: The patient is a 80-year-old female with PMH of atrial fibrillation s/p open-heart surgery on long-term anticoagulation and dementia who presents for evaluation of a ground-level fall with head strike after a reported blackout episode. CT head and CT cervical spine are negative for acute findings, ruling out intracranial hemorrhage and cervical fracture. Labs are unremarkable and do not suggest dehydration. One-view chest radiograph is unremarkable, making pneumonia unlikely. She reports intermittent dizziness consistent with prior episodes of vertigo; family notes increased confusion compared with baseline dementia. Low-back pain is chronic but currently flared after the fall, x-rays do not appear to show any acute fracture. Given negative imaging, normal labs, and persistent weakness/confusion, the most likely diagnoses are minor head injury without bleed, vertigo-related dizziness, and acute exacerbation of chronic low-back pain. Plan: - Scalp laceration cleansed and closed with Steri-Strip. - Administered oral pain medication for low-back pain (home regimen). - Mobility trial at bedside; patient unable to sit/stand safely, prompting discussion of disposition. - Family meeting held; consensus to admit for safety and further management. - Discussed case and arranged admission with hospitalist service. Diagnostics: - CT head: no acute intracranial hemorrhage, mass effect, or encephalomalacia. - CT cervical spine: no acute fracture or malalignment. - One-view chest X-ray: unremarkable; no pneumonia. - Lumbar spine X-rays 2 views on my interpretation show old L5 compression fracture unchanged and no acute fractures.. - Labs: basic metabolic panel and CBC unremarkable. Consultations: - Hospitalist ? accepted admission; will assume inpatient care after CT lumbar spine which she has obtained while in the emergency department, results are pending. Reevaluations: - Patient attempted to sit but remained unable due to low-back pain; confusion noted when nursing offered oral medication. Family later re-evaluated with me and agreed to inpatient admission. Portions of this note were generated using voice recognition software ([employer]). I have reviewed the contents and every effort has been made to ensure accuracy; however, inadvertent errors in grammar, spelling, punctuation, or word choice may occur, that were not noted before signing the document and should not alter the intended clinical meaning. Lab Data Attestation: I reviewed the patient's lab results. Labs: Laboratory Results - last 24 hr 09/06/25 10:15 WBC 7.7 RBC 4.55 Hgb 12.7 Hct 40.1 MCV 88.1 MCH 27.9 MCHC 31.7 L RDW Std Deviation 42.5 RDW Coeff of Jessica 13.1 Plt Count 188 MPV 10.4 Immature Gran % (Auto) 0.300 Neut % (Auto) 75.5 H Lymph % (Auto) 11.3 L [place] % (Auto) 12.3 H Eos % (Auto) 0.1 Baso % (Auto) 0.5 Absolute Neuts (auto) 5.8 Absolute Lymphs (auto) 0.87 Nucleated RBC % 0 Sodium 139 Potassium 4.3 Chloride 100 Carbon Dioxide 27.5 Anion Gap 11 BUN 11 Creatinine 1.12 Estim Creat Clear Calc 47.65 L Est GFR (MDRD) Non-Af 50 L BUN/Creatinine Ratio 9.9 L Glucose 109 H Calcium 9.5 TSH 1.480 Radiography Diagnostic Testing: Clinical Impression(s) from Imaging Studies Chest X-Ray 09/06/25 10:30 IMPRESSION: Grossly clear lungs. Suspected hiatal hernia again identified. Surgical and chronic changes similar to previous. Reading Location: [facility] Brain CT 09/06/25 10:31 IMPRESSION: 1. No CT evidence of acute intracranial hemorrhage, transcortical infarct, or significant mass effect. 2. No acute fracture or dislocation in cervical spine. Reading Location: [id number] Cervical Spine CT 09/06/25 10:[address]: [address] evidence of acute intracranial hemorrhage, transcortical infarct, or significant mass effect. 2. No acute fracture or dislocation in cervical spine. Reading Location: [id number] Management Discussion w/another healthcare provider: Hospitalist Discharge Plan Dx/Rx/DC Orders Clinical Impression: Closed head injury with brief loss of consciousness, Dizziness, Acute exacerbation of chronic low back pain, Dementia, Anticoagulated on apixaban, Fall on same level, unspecified, initial encounter, Debility Disposition Disposition: Acute Care [facility]
--- NOTE | 2025-09-06 10:30 | RAD_ITS ---
PROCEDURE: CHEST 1 VIEW (PORTABLE) 09/06/2025 REASON FOR EXAM: FALL, CONFUSED TECHNIQUE: Frontal view of the chest. COMPARISON: 10/01/2023 chest radiograph. FINDINGS: Cardiac silhouette appears normal. Tortuous and possibly ectatic thoracic aorta again identified. Surgical changes again identified. Pulmonary vasculature appears normal. No definite infiltrate, effusion, vascular congestion, mass, or nodule. Suspected hiatal hernia again identified. RAD/Chest 1 View (Portable) IMPRESSION: Grossly clear lungs. Suspected hiatal hernia again identified. Surgical and chronic changes similar to previous. Reading Location: [facility]
--- NOTE | 2025-09-06 10:31 | CT_ITS ---
PROCEDURE: BRAIN/HEAD WITHOUT CONTRAST; SPINE CERVICAL WITHOUT CONTRAS 09/06/2025 REASON FOR EXAM: FALL/TRAUMA; FALL/PAIN/TRAUMA TECHNIQUE: Procedure Code: CTBR; CTSPC Modality: CT Procedure: BRAIN/HEAD WITHOUT CONTRAST; SPINE CERVICAL WITHOUT CONTRAS Coronal and Sagittal reconstruction series were provided. One or more dose reduction techniques were used (e.g., Automated exposure control, adjustment of the mA and/or kV according to patient size, use of iterative reconstruction technique. RADIATION DOSE SUMMARY: DLP: 1491.88 mGycm COMPARISON: CT head 02/07/2025 FINDINGS: CT HEAD: No acute hemorrhage. No acute transcortical infarct. Patchy periventricular and subcortical white matter hypodensities compatible with chronic microvascular ischemic changes. No significant mass effect or brain herniation. Global cerebral volume loss with compensatory enlargement of the CSF space. No hydrocephalus. No extra-axial fluid collection. The basal cisterns are patent. The mastoid air cells are clear. The paranasal sinuses are predominantly clear. Bilateral ocular lens replacements. The calvarium appears intact. Atherosclerotic calcification of the carotid siphons. CT CERVICAL SPINE: Straightening of the cervical spine. The atlantooccipital and atlantoaxial joints appear normally aligned. The atlas and axis are intact. The remaining cervical vertebral bodies are normal in height. The cervical vertebral bodies are normal in alignment.There is no evidence of focal lytic or sclerotic lesion in the cervical spine. There is no prevertebral soft tissue swelling. Multilevel degenerative changes. No high grade spinal canal stenosis. CT/Spine Cervical without Contras IMPRESSION: 1. No CT evidence of acute intracranial hemorrhage, transcortical infarct, or s ignificant mass effect. 2. No acute fracture or dislocation in cervical spine. Reading Location: [id number]
[2025-09-06 10:35] LABS: Hematocrit 40.1 % (37-47); Hemoglobin 12.7 g/dL (12.0-15.0); Immature Granulocytes Count 0.020 X10^3/uL (0.0-0.0); Mean Corp Hgb Conc 31.7 g/dL (32-36); Mean Corpuscular Volume 88.1 fL (81-99); Mean Platelet Vol. 10.4 fl (6.2-12.0); NRBC Flagged by Analyzer 0 % (0-5); Platelet Count 188 K/mm3 (150-450); RBC Distribution Width CV 13.1 % (11.6-14.6); RBC Distribution Width SD 42.5 fl (35.1-43.9); Red Blood Count 4.55 M/mm3 (4.2-5.4); White Blood Count 7.7 K/mm3 (4.4-11.0)
[2025-09-06 10:59] LABS: Anion Gap 11 (7-18); BUN 11 mg/dL (4-19); BUN/Creat Ratio 9.9 RATIO (10-20); Calcium,Total 9.5 mg/dL (7.6-11.0); Carbon Dioxide 27.5 mmol/L (20.0-29.0); Chloride 100 mmol/L (96-106); Estimated Creatinine Clearance 47.65 ml/min (50-250); Glucose 109 mg/dL (70-99); Potassium 4.3 mmol/L (3.5-5.1)
[2025-09-06] MEDS: HYDROcodone Bitartrate/Apap 5/325 Tablet PO (13:51)
--- NOTE | 2025-09-06 14:10 | RAD_ITS ---
PROCEDURE: LUMBAR SPINE 2 OR 3 VIEWS 09/06/2025 REASON FOR EXAM: PAIN, FALL TECHNIQUE: Procedure Code: RADSPLL Modality: DX Procedure: LUMBAR SPINE 2 OR 3 VIEWS COMPARISON: CT from same day. FINDINGS: No evidence of acute fracture or subluxation. Chronic superior endplate compression fracture deformity of T11. Mild multilevel spondylotic changes. Grossly unremarkable soft tissues. RAD/Lumbar Spine 2 or 3 Views IMPRESSION: 1. No evidence of acute fracture or subluxation. 2. Chronic superior endplate compression fracture deformity of T11. 3. Mild multilevel spondylotic changes. Reading Location: [id number]
--- NOTE | 2025-09-06 15:00 | CM.ED ---
Social work Reason for referral: help with dc/admit Referral source: Hermila GARCIA/Dr Miller SW entered patient's room, introducing self and role at [facility]. Patient observed laying flat in bed and patient's daughter in law, Sarah, at bedside. Patient's daughter, Antonella, arrived prior to any conversation starting. Before SW could inquire about patient's safety at home, Sarah stated belief that patient should be admitted due to safety reasons. Antonella stated agreeing with this and encouraged patient to at least stay one night. Patient agreed to this and showed SW patient's wounds received from the fall. Per Hermila RN, patient was unable to sit up in bed due to back pain and patient was unsure how/had to be reminded how to take medicine when Hermila RN placed it in patient's mouth. SW answered Antonella's questions regarding the process from this point and SW explained what could be in patient's short term future. Antonella stated patient has a embedded case manager through [facility] and patient would have everything needed to return home when patient was ready. SW updated Hermila GARCIA and Dr Miller of patient and patient's family request. Plan: admission to acute. SW handoff to acute RNCM/SW team via email. Sydnie Limon, [employer], MOTOR ELECTRICIAN
--- NOTE | 2025-09-06 15:13 | ED.RN ---
Pt provided with water and straw at this time. External urinary drain in place to collect urine sample.
--- NOTE | 2025-09-06 15:52 | PCM.HP.STD ---
HPI - General General Date of Admission: 09/06/25 Date of Service: 09/06/25 Chief Complaint: Intractable back pain HPI Narrative HA GARAY, is a 80 F who presented to the emergency department at [facility] on 09/06/2025 with the chief complaint of back pain. Patient has a history of Alzheimer's type dementia and lives at home alone presently. She had a fall and hit her head with questionable loss of consciousness. Patient does remember hitting her head but did not recall any prodromal symptoms. She does take Eliquis at baseline for atrial fibrillation. Patient's daughter was noted by medication alert that the patient had not take her medication today. Family was unable to reach her by phone as the patient was not able to reach her phone and the daughter contacted a neighbor who found the patient sitting in a chair and appeared to be unsteady. The patient has had increasing confusion recently and neurology appointment has been scheduled for tomorrow to address her worsening memory. She does have frequent falls at home. Per her daughter there is never been a discussion in discontinuing her anticoagulation and she is currently on apixaban and aspirin. Vital signs on presentation showed a temperature of 98.2, heart rate 86, respiratory 18, blood pressure was initially 167/99 with a repeat of 154/82 pulse ox was 98% on room air. CBC was unremarkable. Chemistry panel was unremarkable. TSH was within normal limits. Patient had a recent UA on Saturday at [facility] and was pulled up to the emergency department physician by the family and it was unremarkable. I have ordered a repeat but it is pending. EKG was unremarkable. Lumbar spine x-rays performed and showed no acute fracture or subluxation with chronic or superior endplate compression fracture deformity at T11 and mild multilevel spondylotic changes. Given her severe pain and inability ambulate we did a CT of her lumbar spine which showed no additional findings in comparison to the lumbar spine imaging. Emergency department physician tried to get the patient up to ambulate to get her home with family. They really like to get her home with home health and avoid [facility] facility placement but the patient was not able to ambulate. They were agreeable for observation as I do anticipate the patient will not need more than 2 midnight hospitalization for pain control and physical and Occupational Therapy evaluation and assistance from case management/social work for obtaining home health care. [facility], [facility] Medical History Paroxysmal A-fib Syncope Orthostatic hypotension Wears glasses Wears dentures Open wound Arthritis History of renal disease Fatty liver Low iron Easy bruising Excessive bleeding TIA (transient ischemic attack) Difficulty swallowing History of IBS Gastric reflux Shortness of breath on exertion Chronic cough Non-smoker Hypertension History of edema History of heart attack History of atrial fibrillation History of Holter monitoring History of stress test History of echocardiogram Cardiology follow-up encounter Acute gastric ulcer Coagulopathy Hiatal hernia Schatzki's ring Stage 3b chronic kidney disease (CKD) Iron deficiency Anemia Chronic anticoagulation Syncope Essential (primary) hypertension Paroxysmal atrial fibrillation Alzheimer's dementia GERD (gastroesophageal reflux disease) Anxiety Hypothyroidism Pseudoseizures Atherosclerosis of coronary artery of [place] heart without angina pectoris HLD (hyperlipidemia) Obesity (BMI 30-39.9) Home Medications ?Medication ?Instructions ?Recorded ?Last Taken ?Type budesonide 3 mg 9 mg PO DAILY ASTHMA 06/08/20 07/16/23 History capsule,delayed,extended release ferrous sulfate 325 mg (65 mg 325 mg PO BID SUPPLEMENT 05/11/22 07/16/23 History iron) tablet pantoprazole 40 mg tablet,delayed 40 mg PO BID ACID REFLUX 05/11/22 07/16/23 History release apixaban 5 mg tablet 5 mg PO BID BLOOD THINNER 07/16/23 07/16/23 History aspirin 81 mg tablet,delayed 81 mg PO DAILY BLOOD THINNER 07/16/23 07/16/23 History release buspirone 5 mg tablet 5 mg PO TID ANXIETY 07/16/23 07/16/23 History levothyroxine 100 mcg tablet 100 mcg PO DAILY THYROID 07/16/23 07/16/23 History sertraline 100 mg tablet 100 mg PO QHS DEPRESSION 07/16/23 07/15/23 History tramadol 50 mg tablet 50 mg PO Q6H PRN PAIN 07/16/23 07/16/23 History atorvastatin 20 mg tablet 20 mg PO QHS CHOLESTEROL #30 tabs 03/11/25 Unknown Rx Allergy/AdvReac Type Severity Reaction Status Date / Time procaine (From Novocain) AdvReac Other Verified 09/06/25 09:21 Family History Mother Heart disease Father Heart disease Alcoholism Surgical History History of colonoscopy History of esophagogastroduodenoscopy (EGD) H/O cardiac radiofrequency ablation Status post ablation of atrial fibrillation History of left heart catheterization (01/12/19) H/O coronary artery bypass surgery (01/29/08) Social History household members: none Smoking Status: Never smoker alcohol intake: never substance use type: does not use caffeine: Yes Type: coffee Number of servings: 6 ROS Constitutional Constitutional: Denies anorexia, change in weight, chills, fatigue, fever(s), malaise, night sweats, weakness or other Eyes Eyes: Denies blurry vision, change in eye color, change in vision, discharge from eye(s), double vision, erythema, eye pain, loss of vision or other ENT HEENT: Reports headache(s); Denies abnormal hearing, dysphagia, ear pain, epistaxis, hearing loss, nasal congestion, nasal discharge, post nasal drip, sinus pressure, sore throat or other Cardiovascular Cardiovascular: Denies chest pain, claudication, dyspnea on exertion, edema, lightheadedness, orthopnea, palpitations, paroxysmal nocturnal dyspnea, rapid heart rate, syncope or other Respiratory/Chest Respiratory/Chest: Denies cough, dyspnea, excessive phlegm production, hemoptysis, productive cough, shortness of breath at rest, shortness of breath with exertion, wheezing or other Gastrointestinal Gastrointestinal: Denies abdominal pain, coffee ground emesis, constipation, diarrhea, dyspepsia, hematemesis, hematochezia, loose stools, melena, nausea, vomiting or other Genitourinary Genitourinary: Denies burning urination, difficulty urinating, dysuria, hematuria, nocturia, urinary frequency, urinary hesitancy, urinary incontinence, urinary urgency or other Musculoskeletal Musculoskeletal: Reports back pain and other Details: Frequent falls ; Denies arthralgias, joint pain, joint stiffness, joint swelling, myalgias or neck pain Neurologic Neurologic: Reports abnormal gait; Denies abnormal speech, confusion, disequilibrium, dizziness, focal weakness, headache(s), numbness, paresthesias, seizure-like activity, seizures, syncope, tingling, tremor(s) or other Psychiatric Psychiatric: Reports depression; Denies anxiety, homicidal ideation, suicidal ideation or other Endocrine Endocrinology: Denies change in body appearance, cold intolerance, excessive sweating, heat intolerance, polydipsia, polyuria or other Hematologic/Lymphatic Hematologic/Lymphatic: Reports easy bleeding and easy bruising Allergic/Immunologic Allergic/Immunologic: Denies rhinitis, hives, eczemia, asthma or other Patient's Goals Of Care . Unable to discuss care goals with the patient and or patient telephone service representative at this time: Yes (Patient with dementia) Vital Signs Vital Signs Vital Signs: 09/06/25 09:16 09/06/25 09:23 09/06/25 11:15 Temperature 98.2 F Temperature Source Oral Pulse Rate 86 84 Respiratory Rate 18 18 Respiratory Effort Normal Blood Pressure 167/91 H 154/82 H Blood Pressure Mean 116 106 Pulse Ox 98 98 Oxygen Delivery Method Room Air Room Air 09/06/25 13:00 09/06/25 15:12 Temperature Temperature Source Pulse Rate 82 81 Respiratory Rate 18 15 Respiratory Effort Blood Pressure 150/80 H 149/65 H Blood Pressure Mean 103 93 Pulse Ox 99 97 Oxygen Delivery Method Room Air Weight Weight: 96.8 kg Body Mass Index (BMI) 35.5 Physical Exam Const alert, no apparent distress and well nourished; Negative for oriented x3, average body habitus or healthy appearing Constitutional Narrative: Obese, elderly, white female, lying in bed, oriented to self and place but not time, currently appears comfortable at rest but painful with movement, family at bedside, patient does not look toxic General Appearance: cooperative HEENT normocephalic; Negative for head/scalp atraumatic HEENT Narrative: Patient with ecchymosis inferior to right orbit and laceration on right anterior lateral forehead with Steri-Strips in place, mild hearing loss, mucous membranes are moist Eyes conjunctivae normal Eyes Narrative: No scleral icterus Resp normal respiratory effort, no retractions, no use of accessory muscles and clear to auscultation bilaterally Auscultation: Negative for crackles, rhonchi or wheezes Cardio regular rate, S1 normal heart sound, S2 normal heart sound, no murmurs, no rub, no gallops and no clicks; Negative for regular rhythm Cardio Narrative: Rhythm is irregularly irregular GI normal to inspection, nondistended, normoactive bowel sounds, soft to palpation and non-tender Extremity no clubbing, cyanosis or edema Extremity Narrative: Radial pulses are 2+ Skin Skin Narrative: Patient with multiple ecchymotic changes and wounds in various stages of healing from recent falls Neuro moves all extremities Neuro Narrative: Back pain with movement but no focal deficits Speech: speech normal Psych Psych Narrative: Pleasant Results Lab / Micro Data 09/06/25 10:15 09/06/25 10:15 Labs: Laboratory Results - last 24 hr 09/06/25 10:15: WBC 7.7, RBC 4.55, Hgb 12.7, Hct 40.1, MCV 88.1, MCH 27.9, MCHC 31.7 L, RDW Std Deviation 42.5, RDW Coeff of Jessica 13.1, Plt Count 188, MPV 10.4, Immature Gran % (Auto) 0.300, Neut % (Auto) 75.5 H, Lymph % (Auto) 11.3 L, Carroll % (Auto) 12.3 H, Eos % (Auto) 0.1, Baso % (Auto) 0.5, Absolute Neuts (auto) 5.8, Absolute Lymphs (auto) 0.87, Nucleated RBC % 0, Sodium 139, Potassium 4.3, Chloride 100, Carbon Dioxide 27.5, Anion Gap 11, BUN 11, Creatinine 1.12, Estim Creat Clear Calc 47.65 L, Est GFR (MDRD) Non-Af 50 L, BUN/Creatinine Ratio 9.9 L, Glucose 109 H, Calcium 9.5 Imaging Radiology Impression Chest X-Ray 09/06/25 10:30 IMPRESSION: Grossly clear lungs. Suspected hiatal hernia again identified. Surgical and chronic changes similar to previous. [facility] 09/06/25 10:31 IMPRESSION: 1. No CT evidence of acute intracranial hemorrhage, transcortical infarct, or significant mass effect. 2. No acute fracture or dislocation in cervical spine. Reading Location: [id number] Cervical Spine CT 09/06/25 10:[address]: [address] evidence of acute intracranial hemorrhage, transcortical infarct, or significant mass effect. 2. No acute fracture or dislocation in cervical spine. Reading Location: [facility] Assessment & Plan Assessment/Plan (1) Debility: (2) Declining functional status: (3) Dizziness: (4) Anticoagulated on apixaban: PLAN: Plan Intractable back pain/inability ambulate - Imaging is unremarkable for any acute findings - Start scheduled Tylenol 1000 every 8 - Start gabapentin 100 3 times daily - Lidocaine patch - As needed oxycodone 2.5 to 5 mg every 4 hours as needed - Low-dose as needed tizanidine - K-pad - Bowel regimen - Pain management is not available for consultation this week as there is no coverage - PT/OT consultation - Case management/social work consultation for assistance with discharge planning - Family very much would like to avoid SNF and take her home with home health care if at all possible Falls/debility/functional decline - PT/OT is following - Unable to consider stopping Eliquis altogether if patient is going to be continued high risk for fall T11 chronic compression fracture - Does not seem to be the area acutely affected - Consider outpatient follow-up if persistent Intermittent dizziness - Etiology is unclear as patient is unable to describe her symptoms - PT/OT consultation - Monitor clinically Paroxysmal atrial fibrillation - Ablation 03/07/2022 at [facility] - Currently in rate controlled A-fib - Patient is not on any rate controlling medications next-Will continue apixaban CAD/essential hypertension/hyperlipidemia - history of CABG x 2 PAN-LAD, SVG-RPDA 01/29/2008 - On apixaban - Stop aspirin next-continue atorvastatin - Patient is not on any current medication for antihypertensive due to previous syncopal episodes Bilateral carotid artery stenosis - Moderate on most recent carotid carotid Dopplers from 2023 - Continue apixaban - Hold aspirin CKD stage IIIa - BUN and creatinine are normal however muscle mass is low and creatinine is 1.12 with estimated GFR of 50 - Avoid nephrotoxins - Repeat lab periodically Hypothyroidism TSH within normal limits next-continue levothyroxine GERD - Continue home PPI Asthma - Continue home budesonide Chronic pain/anxiety - Hold tramadol - Use oxycodone Alzheimer's type dementia - Patient with worsening memory - Has outpatient follow-up with neurology and would recommend keeping this appointment - Schedule melatonin at at bedtime to assist with potential sundowning symptoms - May need to consider low-dose risperidone if she develops sundowning Depression - Continue home sertraline next-continue BuSpar DVT prophylaxis - Patient is fully anticoagulated on apixaban CODE STATUS - DNR CCA with no intubation per discussion with family at the time of admission Charges/Coding Visit Charges Inpatient E&M: 81794 Init Hosp L2
--- NOTE | 2025-09-06 16:27 | CT_ITS ---
PROCEDURE: CT SPINE LUMBAR WITHOUT CONTRAST 09/06/2025 REASON FOR EXAM: BACK PAIN TECHNIQUE: Procedure Code: CTSPL Modality: CT Procedure: SPINE LUMBAR WITHOUT CONTRAST Coronal and Sagittal reconstruction series were provided. One or more dose reduction techniques were used (e.g., Automated exposure control, adjustment of the mA and/or kV according to patient size, use of iterative reconstruction technique COMPARISON: Lumbar spine MRI 02/19/2024 RADIATION DOSE SUMMARY: CTDlvol: 36.2 mGy DLP: 1413.82 mGycm FINDINGS: No acute fracture or subluxation. Chronic superior endplate compression fracture deformity of T11 with roughly 50% height loss and no significant retropulsion. Trace degenerative grade 1 anterolisthesis of L4 on L5, and L5 on S1. Multilevel spondylotic changes with varying degrees of mild disc space narrowing, endplate sclerosis with small anterior osteophytes, and hypertrophic facet arthropathy. Prominent asymmetric degenerative arthrosis with heterogeneous sclerotic changes of the right sacroiliac joint. Unremarkable visualized paravertebral soft tissues. Moderate atherosclerotic vascular disease with undulating infrarenal abdominal aortic aneurysms, grossly stable. Colonic diverticulosis. CT/Spine Lumbar without Contrast IMPRESSION: 1. No acute fracture or subluxation. 2. Chronic superior endplate compression fracture of T11. 3. Degenerative changes and additional ancillary findings, described above. Reading Location: [id number]
[2025-09-06] MEDS: Ensure Plus High Protein 120 ML LIQUID PO (21:50)
[2025-09-06] MEDS: APIXABAN 5 MG TABLET PO (21:51)
[2025-09-07] VITALS: TEMP 36.8
[2025-09-07 03:39] LABS: Mucous, Urine 0 SEEN /hpf (<or=2+); Red Blood Cells-Urine 0 SEEN /hpf (0-5)
[2025-09-07 03:40] LABS: Color, Urine Yellow (Yellow); Glucose, Dipstick Normal (Normal); Ketone-Dipstick Negative (Negative); Leukocyte Esterase-Dipstick Negative /ul (Negative); Nitrite-Dipstick Negative (Negative); Occult Blood-Urine Negative /ul (Negative); Protein-Dipstick Negative (Negative); Specific Gravity, Urine 1.010 (1.002-1.030); Urine Bilirubin Dipstick Negative (Negative)
[2025-09-07 03:52] LABS: Squamous Epithelial Cells - UA 0-5 SEEN /hpf (5-10)
[2025-09-07 04:01] VITALS: BP 142/72; PULSE 77; RESP 16; TEMP 36.7; O2SAT 95
[2025-09-07 07:12] LABS: Hematocrit 36.5 % (37-47); Hemoglobin 12.5 g/dL (12.0-15.0); Immature Granulocytes Count 0.020 X10^3/uL (0.0-0.0); Mean Corp Hgb Conc 34.2 g/dL (32-36); Mean Corpuscular Volume 84.9 fL (81-99); Mean Platelet Vol. 10.2 fl (6.2-12.0); NRBC Flagged by Analyzer 0 % (0-5); Platelet Count 166 K/mm3 (150-450); RBC Distribution Width CV 13.2 % (11.6-14.6); RBC Distribution Width SD 41.1 fl (35.1-43.9); Red Blood Count 4.30 M/mm3 (4.2-5.4); White Blood Count 6.2 K/mm3 (4.4-11.0)
[2025-09-07 07:35] LABS: Anion Gap 11 (7-18); BUN 15 mg/dL (4-19); BUN/Creat Ratio 14.4 RATIO (10-20); Calcium,Total 9.1 mg/dL (7.6-11.0); Carbon Dioxide 23.5 mmol/L (20.0-29.0); Chloride 101 mmol/L (96-106); Estimated Creatinine Clearance 50.95 ml/min (50-250); Glucose 89 mg/dL (70-99); Magnesium 2.3 mg/dL (1.5-2.2); Potassium 4.0 mmol/L (3.5-5.1)
[2025-09-07 08:03] VITALS: BP 117/81; PULSE 83; RESP 16; TEMP 37.1; O2SAT 93
--- NOTE | 2025-09-07 09:08 | CASEMGMT ---
TONG Met with patient to complete TONG form. TONG form and its content were verbally explained and patient's questions were answered to the best of my ability.? Patient voiced understanding and signed TONG form.? Patient provided a copy of signed TONG form and original placed in patient's chart.? Patient had no further questions. Mary Tariq, Discharge Planning Asst
--- NOTE | 2025-09-07 10:25 | CASEMGMT ---
Discharge Planning A list of?SNF providers including quality and resource use data and consistent with the patient's preferred geographic region, medical needs, and insurance network was created in [facility] Guide.? This list was provided to the SW. Mary Tariq Discharge Planning Asst.
[2025-09-07] MEDS: Budesonide 3 MG CAPSULE.EC 9 MG PO (10:35)
[2025-09-07] MEDS: APIXABAN 5 MG TABLET PO ×2 (10:36→21:36)
[2025-09-07] MEDS: Lidocaine 5% Patch 1 PATCH TOPICAL (10:36)
[2025-09-07] MEDS: Ensure Plus High Protein 120 ML LIQUID PO ×4 (10:39→21:38)
--- NOTE | 2025-09-07 10:47 | CASEMGMT ---
Social Work- SW met with pt, pt dtr, and pt DIL to discuss therapy recommendations. A list of SNF providers including quality and resource use data and consistent with the patient?s preferred geographic region, medical needs, and insurance network were provided from the [facility] Guide. SW also texted a list to DIL. SW to follow up for selections. Pt dtr informed SHERICE that pt has [facility]. Pt dtr reports that [facility] provides medical alert and had previously provided aide service before pt cancelled service. SHERICE called Elif and left a voicemail to collaborate. SHERICE remains available to follow. ALLEN Brito
--- NOTE | 2025-09-07 11:33 | CASEMGMT ---
Social Work- SW met with pt dtr who relayed that pt and family selected [facility] as F[facility] and [facility] as alternate. SW notified DCA of referral request. ALLEN Brito
--- NOTE | 2025-09-07 12:19 | CASEMGMT ---
Addendum entered by Mary Tariq 09/07/25 13:39: [facility] has accepted and will submit for precert. SW updated. Original Note: [facility]. Mary Tariq DC Planning Asst.
[2025-09-07 13:25] VITALS: BP 152/73; PULSE 79; RESP 16; TEMP 37.2; O2SAT 93
--- NOTE | 2025-09-07 13:47 | CASEMGMT ---
Social Work- [facility] accepted referral and will start precert. SW called pt dtr Antonella to update. Plan: CALI; precert pend ALLEN Brito
--- NOTE | 2025-09-07 17:30 | CASEMGMT ---
Social Work- received a return call from Elif Pedraza, [facility] CM who reports that she only received a med dispenser through their agency. Aide service was through waiver. Elif reports that as of 09/09/25, pt will no longer have [facility], but will have [facility]. Elif reports that as of 09/09/25, she will no longer be the CM for pt and was uncertain who will take over, but can find out. Elif will be contact point until that time. Plan: CALI; pend precert ALLEN Brito
--- NOTE | 2025-09-07 19:43 | PCM.PN.HOSP ---
Reason for Visit Chief Complaint: Intractable back pain Subjective Subjective Patient was seen and examined today, I talked at length with her POA who was in the room at the time of my examination. Patient has had a series of falls at home and the family felt she was not safe to continue to live by herself. Patient was not able to ambulate in the emergency room and was placed in observation status yesterday and is being seen by PT and OT. Objective Data Objective Data Vital Signs: Vital Signs Temp Pulse Resp BP Pulse Ox O2 Del Method 99.0 F 79 16 152/73 H 93 Room Air 09/07/25 13:25 09/07/25 13:25 09/07/25 13:25 09/07/25 13:25 09/07/25 13:25 09/07/25 13:25 Oxygen Delivery Method Room Air Weight: 93.7 kg Body Mass Index (BMI) 35.4 Intake & Output: Intake and Output for Last 24 Hours 09/05/25 09/06/25 09/07/25 23:59 23:59 23:59 Output Total 500 / 500 Balance -500 / -500 Medical Nutrition Assessment Dietitian: Malnutrition Criteria Met Start: 09/07/25 13:45 Freq: Status: Active Protocol: Document 09/07/25 13:45 RMA (Rec: 09/07/25 13:45 RMA [id number]) Nutrition Malnutrition Evidence of Yes Malnutrition Exists Malnutrition ( Chronic moderate): Evidenced By Suboptimal Energy Intake (Moderate),Weight Loss ( Moderate) Clinical Problem Chronic Disease or Condition Related Malnutrition Etiology Moderate protein-calorie malnutrition in the context of chronic disease and debility related to inadequate oral/energy intake Signs/Symptoms as evidenced by ~10% unintentional weight loss x past 8 -10 months and Po meeting less than 75% estimated nutrition needs x past 6 months Status Active Problem Recommendation Dietitian Will continue cardiac diet and 120mL ensure plus HP 4 Recommendations/ times per day with medpass as ordered. Changes Liberalize diet and offer additional ONS as needed. Lab / Micro Data 09/07/25 06:53 09/07/25 06:53 Labs: Laboratory Results - last 24 hr 09/07/25 03:00: Urine Color Yellow, Urine Clarity Clear, Urine pH 7.0, Ur Specific [place] 1.010, Urine Protein Negative, Urine Glucose (UA) Normal, Urine Ketones Negative, Urine Occult Blood Negative, Urine Nitrite Negative, Urine Bilirubin Negative, Urine Urobilinogen Normal, Ur Leukocyte Esterase Negative, Urine RBC 0 SEEN, Urine WBC 0-5 SEEN, Ur Squamous Epith Cells 0-5 SEEN, Urine Bacteria RARE, Urine Mucus 0 SEEN 09/07/25 06:53: WBC 6.2, RBC 4.30, Hgb 12.5, Hct 36.5 L, MCV 84.9, MCH 29.1, MCHC 34.2 D, RDW Std Deviation 41.1, RDW Coeff of Jessica 13.2, Plt Count 166, MPV 10.2, Immature Gran % (Auto) 0.300, Neut % (Auto) 72.9 H, Lymph % (Auto) 12.7 L, [place] % (Auto) 13.3 H, Eos % (Auto) 0.3, Baso % (Auto) 0.5, Absolute Neuts (auto) 4.5, Absolute Lymphs (auto) 0.79 L, Nucleated RBC % 0, Sodium 136, Potassium 4.0, Chloride 101, Carbon Dioxide 23.5, Anion Gap 11, BUN 15, Creatinine 1.01, Estim Creat Clear Calc 50.95, Est GFR (MDRD) Non-Af 57 L, BUN/Creatinine Ratio 14.4, Glucose 89, Calcium 9.1, Phosphorus 3.8, Magnesium 2.3 H Radiography Diagnostic Testing: Radiology Impression Lumbar Spine X-Ray 09/06/25 14:10 IMPRESSION: 1. No evidence of acute fracture or subluxation. 2. Chronic superior endplate compression fracture deformity of T11. 3. Mild multilevel spondylotic changes. Reading Location: [facility] Physical Exam Const alert, no apparent distress, healthy appearing and well nourished Constitutional Narrative: Patient has mild cognitive impairment General Appearance: cooperative, well kempt and well developed Orientation / Consciousness: awake, oriented to person and oriented to place HEENT normocephalic and moist oral mucous membranes HEENT Narrative: There is some ecchymosis noted around the right eye, there is a small laceration on the right forehead with Steri-Strips applied Eyes PERRL, EOMs intact bilaterally and conjunctivae normal Neck supple, no JVD, thyroid normal and no carotid bruits General: trachea midline Resp normal respiratory effort, no retractions, no use of accessory muscles and clear to auscultation bilaterally Auscultation: Negative for rales, rhonchi or wheezes Cardio regular rate, regular rhythm, S1 normal heart sound, S2 normal heart sound, no murmurs, no rub and no gallops GI normal to inspection, nondistended, normoactive bowel sounds, soft to palpation, non-tender and non-distended Extremity no clubbing, cyanosis or edema Skin no rashes or lesions noted General Skin Exam: no breakdown Neuro CN's II-XII intact bilaterally, moves all extremities, no focal motor deficits and no sensory deficits noted Neuro Narrative: Patient has mild cognitive impairment Sensorium / Orientation: awake, alert, oriented to person and oriented to place Speech: speech normal Psych Psych Narrative: Patient exhibits mild cognitive impairment Assessment & Plan Assessment/Plan (1) Declining functional status: PLAN: Plan 1. Acute on chronic debility secondary to underlying Alzheimer's dementia-PT and OT will continue to work with the patient, patient will need placement in a shelter facility for at least short-term rehab services. #2 Alzheimer's dementia-complicates care, management, recovery, and prognosis #3 paroxysmal atrial fibrillation-patient is on full anticoagulation, she is currently on no rate control medications. #4 essential hypertension-patient will remain on her present medications, blood pressure will be monitored #5 atherosclerotic heart disease-stable at this time, patient is on a statin and aspirin #6 chronic use of anticoagulation due to paroxysmal E-[id number]-sanzgha is on Eliquis #7 hypothyroidism-patient is on Synthroid #8 GERD-patient is on Protonix twice a day #9 hyperlipidemia-patient is on atorvastatin #10 history of syncope-according to documentation, patient has a history of syncope. She has undergone general cardiac evaluation, electrophysiology evaluation, and neurology evaluation., Her last 14-day event monitor showed sinus rhythm with an average rate of 91 and no atrial fibrillation or pauses noted. Total clinical time spent by myself addressing the patient's medical issues, reviewing all of her data, and collaborating with patient's care team: 35 minutes Charges/Coding Visit Charges Inpatient E&M: 46066 Subs Hosp L2
[2025-09-07] MEDS: MELATONIN 10 MG TABLET PO (21:36)
[2025-09-07 21:53] VITALS: BP 150/70; PULSE 73; RESP 16; TEMP 36.6; O2SAT 93
[2025-09-07 21:57] VITALS: BMI 35.4
[2025-09-08 04:12] VITALS: BP 156/84; PULSE 72; RESP 16; TEMP 36.6; O2SAT 94
[2025-09-08 06:00] VITALS: BMI 35.0
--- NOTE | 2025-09-08 08:00 | CASEMGMT ---
[facility] has obtained auth to admit. Mary Tariq DC Planning Asst.
--- NOTE | 2025-09-08 08:48 | CASEMGMT ---
Addendum entered by Elaine Lambert 09/08/25 12:41: Social Work D/C strategic planning director setting up the discharge, pt's daughter will take pt over and RN to call report. SW called Elif Valencia, pt's CM, let her know pt is going to [facility] today. KALIN Shahid Original Note: Social Work Precert was attained for pt to go to SNF today. SW notified physician. SW completed PAS/RR in the [facility] system, further review not needed. PAS/RR printed for chart. KALIN Shahid
[2025-09-08 08:54] VITALS: BP 148/93; PULSE 86; RESP 16; TEMP 36.6; O2SAT 97
[2025-09-08] MEDS: APIXABAN 5 MG TABLET PO (08:55)
[2025-09-08] MEDS: Budesonide 3 MG CAPSULE.EC 9 MG PO (08:56)
--- NOTE | 2025-09-08 10:33 | PCM.TXEXTCAR ---
Diet Diet Order/Speech Therapy: INPATIENT Hospital Diet / Speech Therapy Order(s) 09/06/25 19:40 Diet: Cardiac - Heart Healthy Food consistency:: Regular Liquid Consistency:: Regular/Thin Routine Orders/Code Status Code Status: DNRCC-A (No intubation) DC O2, CPAP, BIPAP needs Home O2 Discharge instructions: No Wound(s) right side of forehead: Wound Type: Laceration right forearm: Wound Type: Skin Tear Left rivas: Wound Type: scabs Therapies Weight Bearing: Full weight bearing Physical Therapy: Eval and Treat Occupational Therapy: Eval and Treat Problem/Diagnosis (1) Declining functional status: Status: Acute Code(s): R53.81 - Other malaise Plan 1. Acute on chronic debility secondary to underlying Alzheimer's dementia-PT and OT will continue to work with the patient, patient will need placement in a residential facility for at least short-term rehab services. #2 Alzheimer's dementia-complicates care, management, recovery, and prognosis #3 paroxysmal atrial fibrillation-patient is on full anticoagulation, she is currently on no rate control medications. #4 essential hypertension-patient will remain on her present medications, blood pressure will be monitored #5 atherosclerotic heart disease-stable at this time, patient is on a statin and aspirin #6 chronic use of anticoagulation due to paroxysmal [id number]-[id number] is on Eliquis #7 hypothyroidism-patient is on Synthroid #8 GERD-patient is on Protonix twice a day #9 hyperlipidemia-patient is on atorvastatin #10 history of syncope-according to documentation, patient has a history of syncope. She has undergone general cardiac evaluation, electrophysiology evaluation, and neurology evaluation., Her last 14-day event monitor showed sinus rhythm with an average rate of 91 and no atrial fibrillation or pauses noted. Total clinical time spent by myself addressing the patient's medical issues, reviewing all of her data, and collaborating with patient's care team: 35 minutes Allergies/Procedures Done in Hospital Allergies procaine (From Novocain) Adverse Reaction (Verified 09/06/25 09:21) Other Elevated Blood Pressure Procedures: None Type of Care/Length of Stay Estimated LOS: Convalescent Care Less Than 30 days Type of Care Needed: Skilled Rehab Potential: Good Prognosis: Good Additional Orders/Day of Discharge H&P will serve as current which was dated: 12/29/25 Day of Discharge: 09/08/25 Dietary and Speech Recommendations Dietitian Recommendations/Changes: Will continue cardiac diet and 120mL ensure plus HP 4 times per day with medpass as ordered. Liberalize diet and offer additional ONS as needed. Discharge Plan Admission Admit Date/Time: 09/06/25 18:27 Primary Reason for Your Visit: Acute debility Attending Provider: Otilio Montenegro Primary Care Provider: Bal Benz Consulting Providers: Myrna Chan Discharge Orders/Prescriptions Prescriptions: New gabapentin 100 mg Capsule 100 mg PO TIDCM Qty: 0 0RF loperamide [Imodium A-D] 2 mg capsule 4 mg PO Q4H PRN (Reason: loose stool) Qty: 1 0RF Rx Instructions: administer after each loose stool until symptoms controlled; do not exceed 8 mg per 24 hrs Continued pantoprazole 40 mg tablet,delayed release (DR/EC) 40 mg PO BID ferrous sulfate 325 mg (65 mg iron) tablet 325 mg PO BID budesonide 3 MG capsule,delayed,extend.release 9 mg PO DAILY buspirone 5 mg tablet 5 mg PO TID levothyroxine 100 mcg tablet 100 mcg PO DAILY tramadol 50 mg tablet 50 mg PO Q6H PRN (Reason: PAIN) Patient Comments: . Rx Instructions: TAKE ONE TABLET BY MOUTH EVERY 6 HOURS NEEDED FOR PAIN FOR UP TO 7 DAYS. sertraline 100 mg tablet 100 mg PO QHS apixaban 5 mg tablet 5 mg PO BID aspirin 81 mg tablet,delayed release (DR/EC) 81 mg PO DAILY atorvastatin 20 mg tablet 20 mg PO QHS Qty: 30 11RF Referrals / Follow Up: Bal Benz MD [Primary Care Provider, Medical] Disposition Disposition (needs filled in before D/C Order can be placed): Retirement Facility
--- NOTE | 2025-09-08 10:45 | PCM.DC.SUM ---
Providers Date of Admission: 09/06/25 Date of Discharge: 09/08/25 Primary Care Physician: Dr. Bal Benz MD Reason For Visit: INTRACTABLE LOW BACK PAIN/INABILITY Diagnosis Discharge Diagnosis (1) Declining functional status: Status: Acute Code(s): R53.81 - Other malaise Plan 1. Acute on chronic debility secondary to underlying Alzheimer's dementia-PT and OT will continue to work with the patient, patient will need placement in a longterm facility for at least short-term rehab services. #2 Alzheimer's dementia-complicates care, management, recovery, and prognosis #3 paroxysmal atrial fibrillation-patient is on full anticoagulation, she is currently on no rate control medications. #4 essential hypertension-patient will remain on her present medications, blood pressure will be monitored #5 atherosclerotic heart disease-stable at this time, patient is on a statin and aspirin #6 chronic use of anticoagulation due to paroxysmal A-osw-ulyvpeo is on Eliquis #7 hypothyroidism-patient is on Synthroid #8 GERD-patient is on Protonix twice a day #9 hyperlipidemia-patient is on atorvastatin #10 history of syncope-according to documentation, patient has a history of syncope. She has undergone general cardiac evaluation, electrophysiology evaluation, and neurology evaluation., Her last 14-day event monitor showed sinus rhythm with an average rate of 91 and no atrial fibrillation or pauses noted. #11 chronic moderate protein and caloric malnutrition in the context of chronic disease and debility related to inadequate oral/energy intake as evidenced by approximately 10% unintentional weight loss times past 8 to 10 months NPO meeting less than 75% of estimated nutritional needs times past 6 months. Total clinical time spent by myself addressing the patient's medical issues, reviewing all of her data, and collaborating with patient's care team: 35 minutes Medications at Discharge Home Medications budesonide 3 mg capsule,delayed,extended release 9 mg PO DAILY ASTHMA 06/08/20 ferrous sulfate 325 mg (65 mg iron) tablet 325 mg PO BID SUPPLEMENT 05/11/22 pantoprazole 40 mg tablet,delayed release 40 mg PO BID ACID REFLUX 05/11/22 apixaban 5 mg tablet 5 mg PO BID BLOOD THINNER 07/16/23 aspirin 81 mg tablet,delayed release 81 mg PO DAILY BLOOD THINNER 07/16/23 buspirone 5 mg tablet 5 mg PO TID ANXIETY 07/16/23 levothyroxine 100 mcg tablet 100 mcg PO DAILY THYROID 07/16/23 sertraline 100 mg tablet 100 mg PO QHS DEPRESSION 07/16/23 tramadol 50 mg tablet 50 mg PO Q6H PRN PAIN 07/16/23 atorvastatin 20 mg tablet 20 mg PO QHS CHOLESTEROL #30 tabs 03/11/25 gabapentin 100 mg capsule 100 mg PO TIDCM #0 caps 09/08/25 loperamide 2 mg capsule (Imodium A-D) 4 mg (2 x 2 mg) PO Q4H PRN loose stool #1 cap 09/08/25 Hospital Course Operations None Procedures None Summary of Care Provided Minutes Spent on Discharge: 32 Hospital Course: This 80-year-old white female was brought into the emergency room at [facility] due to her series of falls at home. She has dementia at baseline. Workup in the emergency room revealed no evidence of infection, imaging studies did not show any evidence of fracture or dislocation. Patient was placed in observation status on [facility] 3 and was seen by PT and OT, it was felt she would benefit from transfer to longterm facility for short-term skilled services. On 09/08/2025, patient was seen and examined:lert, no apparent distress, healthy appearing and well nourished Constitutional Narrative: Patient has mild cognitive impairment General Appearance: cooperative, well kempt and well developed Orientation / Consciousness: awake, oriented to person and oriented to place HEENT normocephalic and moist oral mucous membranes HEENT Narrative: There is some ecchymosis noted around the right eye, there is a small laceration on the right forehead with Steri-Strips applied Eyes PERRL, EOMs intact bilaterally and conjunctivae normal Neck supple, no JVD, thyroid normal and no carotid bruits General: trachea midline Resp normal respiratory effort, no retractions, no use of accessory muscles and clear to auscultation bilaterally Auscultation: Negative for rales, rhonchi or wheezes Cardio regular rate, regular rhythm, S1 normal heart sound, S2 normal heart sound, no murmurs, no rub and no gallops GI normal to inspection, nondistended, normoactive bowel sounds, soft to palpation, non-tender and non-distended Extremity no clubbing, cyanosis or edema Skin no rashes or lesions noted General Skin Exam: no breakdown Neuro CN's II-XII intact bilaterally, moves all extremities, no focal motor deficits and no sensory deficits noted Neuro Narrative: Patient has mild cognitive impairment Sensorium / Orientation: awake, alert, oriented to person and oriented to place Speech: speech normal Psych Psych Narrative: Patient exhibits mild cognitive impairment Patient appears stable for transfer to longterm facility on 09/08/2025 in stable condition. Patient was transferred to [facility] for further care. Medical Records Data Medical Nutrition Assessment Dietitian: Malnutrition Criteria Met Start: 09/07/25 13:45 Freq: Status: Active Protocol: Document 09/07/25 13:45 RMA (Rec: 09/07/25 13:45 RMA [id number]) Nutrition Malnutrition Evidence of Yes Malnutrition Exists Malnutrition ( Chronic moderate): Evidenced By Suboptimal Energy Intake (Moderate),Weight Loss ( Moderate) Clinical Problem Chronic Disease or Condition Related Malnutrition Etiology Moderate protein-calorie malnutrition in the context of chronic disease and debility related to inadequate oral/energy intake Signs/Symptoms as evidenced by ~10% unintentional weight loss x past 8 -10 months and Po meeting less than 75% estimated nutrition needs x past 6 months Status Active Problem Recommendation Dietitian Will continue cardiac diet and 120mL ensure plus HP 4 Recommendations/ times per day with medpass as ordered. Changes Liberalize diet and offer additional ONS as needed. Weight / BMI Weight Weight: 92.7 kg Body Mass Index (BMI) 35.0 ABG / Lab / Microbiology Data 09/07/25 06:53 09/07/25 06:53 D/C Instructions DC O2, CPAP, BIPAP Needs Home O2 Discharge instructions: No Meaningful Use Info Meaningful Use Meaningful Use Diagnoses (Choose all that apply): None applicable Discharge Plan Admission Admit Date/Time: 09/06/25 18:27 Primary Reason for Your Visit: Acute debility Attending Provider: Otilio Montenegro Primary Care Provider: Bal Benz Consulting Providers: Myrna Chan Discharge Orders/Prescriptions Prescriptions: New gabapentin 100 mg Capsule 100 mg PO TIDCM Qty: 0 0RF loperamide [Imodium A-D] 2 mg capsule 4 mg PO Q4H PRN (Reason: loose stool) Qty: 1 0RF Rx Instructions: administer after each loose stool until symptoms controlled; do not exceed 8 mg per 24 hrs Continued pantoprazole 40 mg tablet,delayed release (DR/EC) 40 mg PO BID ferrous sulfate 325 mg (65 mg iron) tablet 325 mg PO BID budesonide 3 MG capsule,delayed,extend.release 9 mg PO DAILY buspirone 5 mg tablet 5 mg PO TID levothyroxine 100 mcg tablet 100 mcg PO DAILY tramadol 50 mg tablet 50 mg PO Q6H PRN (Reason: PAIN) Patient Comments: . Rx Instructions: TAKE ONE TABLET BY MOUTH EVERY 6 HOURS NEEDED FOR PAIN FOR UP TO 7 DAYS. sertraline 100 mg tablet 100 mg PO QHS apixaban 5 mg tablet 5 mg PO BID aspirin 81 mg tablet,delayed release (DR/EC) 81 mg PO DAILY atorvastatin 20 mg tablet 20 mg PO QHS Qty: 30 11RF Referrals / Follow Up: Bal Benz MD [Primary Care Provider, Medical] Disposition Disposition (needs filled in before D/C Order can be placed): [facility] Charges/Coding Visit Charges Inpatient E&M: 70551 Disch Hosp >30min
--- NOTE | 2025-09-08 11:38 | PHA.DC.MR.R ---
Pharmacy CT Med Reconciliation Pharmacy Service has performed discharge medication reconciliation for this patient. The patient's discharge medication list was reviewed for discrepancies and discrepancies were resolved. Medications at Discharge Home Medications budesonide 3 mg capsule,delayed,extended release 9 mg PO DAILY ASTHMA 06/08/20 ferrous sulfate 325 mg (65 mg iron) tablet 325 mg PO BID SUPPLEMENT 05/11/22 pantoprazole 40 mg tablet,delayed release 40 mg PO BID ACID REFLUX 05/11/22 apixaban 5 mg tablet 5 mg PO BID BLOOD THINNER 07/16/23 aspirin 81 mg tablet,delayed release 81 mg PO DAILY BLOOD THINNER 07/16/23 buspirone 5 mg tablet 5 mg PO TID ANXIETY 07/16/23 levothyroxine 100 mcg tablet 100 mcg PO DAILY THYROID 07/16/23 sertraline 100 mg tablet 100 mg PO QHS DEPRESSION 07/16/23 tramadol 50 mg tablet 50 mg PO Q6H PRN PAIN 07/16/23 atorvastatin 20 mg tablet 20 mg PO QHS CHOLESTEROL #30 tabs 03/11/25 gabapentin 100 mg capsule 100 mg PO TIDCM #0 caps 09/08/25 loperamide 2 mg capsule (Imodium A-D) 4 mg (2 x 2 mg) PO Q4H PRN loose stool #1 cap 09/08/25
--- NOTE | 2025-09-08 12:43 | CASEMGMT ---
Discharge Planning Discharge orders, signed med list, and transport time sent via [facility] to [facility]. Pts family will transport. Nursing updated. Mary Tariq DC Planning Asst.
[2025-09-08 13:21] VITALS: BP 148/91; PULSE 84; RESP 16; TEMP 36.7; O2SAT 96
--- NOTE | 2025-09-08 13:27 | CASEMGMT ---
Social Work SW faxed over discharge summary to Elif Valencia with [facility]. KALIN Shahid
== END 2025-09-08 13:21 | disposition skilled nursing facility (03) ==
LOC: ED 15:48 → MS3 18:38
PROVIDERS: Admitting Provider Internal Medicine; Emergency Provider Emergency Medicine; PCP Family Medicine; Visit Provider Internal Medicine
DX: G30.9 Alzheimer's disease, unspecified (principal); F02.A0 Dementia in other diseases classified elsewhere, mild, without behavioral disturbance, psychotic disturbance, mood disturbance, and anxiety; I48.0 Paroxysmal atrial fibrillation; N18.31 Chronic kidney disease, stage 3a; R53.81 Other malaise; R53.1 Weakness; I25.10 Atherosclerotic heart disease of native coronary artery without angina pectoris; K21.9 Gastro-esophageal reflux disease without esophagitis; S01.81XA Laceration without foreign body of other part of head, initial encounter; R26.2 Difficulty in walking, not elsewhere classified; I12.9 Hypertensive chronic kidney disease with stage 1 through stage 4 chronic kidney disease, or unspecified chronic kidney disease; D64.9 Anemia, unspecified; W19.XXXA Unspecified fall, initial encounter; E44.0 Moderate protein-calorie malnutrition; E78.5 Hyperlipidemia, unspecified; G89.29 Other chronic pain; M54.50 Low back pain, unspecified; Z79.01 Long term (current) use of anticoagulants; Z79.899 Other long term (current) drug therapy; E03.9 Hypothyroidism, unspecified; Z79.890 Hormone replacement therapy; Z68.35 Body mass index [BMI] 35.0-35.9, adult; Z79.82 Long term (current) use of aspirin; F32.A Depression, unspecified; F41.9 Anxiety disorder, unspecified; R29.6 Repeated falls; Z60.2 Problems related to living alone
CPT/HCPCS: 36415; 70450; 71045; 72100; 72125; 72131; 80048; 81001; 83735; 84100; 84443; 85025; 94668; 97110; 97162; 97167; 97530; 97802; 99221; 99252; 99285; G0378; G0463